=== PATIENT | female | born 1945 | race Caucasian/White ===

== ENCOUNTER → 2016-08-15 | Outpatient (CLI) | payer MEDICARE, BC ==
--- NOTE | 2016-08-15 09:56 | CT ---
EXAMINATION TYPE: CT chest wo con DATE OF EXAM: 08/15/2016 COMPARISON: Previous study dated 02/02/2016. HISTORY: Pulmonary Nodule CT DLP: 443.7 mGycm Automated exposure control for dose reduction was used. FINDINGS: There are emphysematous and bullous changes within the lungs. The patient multiple pulmonary nodules present bilaterally. These are all stable in size. No new nodu larity is seen. There is no significant axillary or internal mammary adenopathy. One pretracheal lymph node previousl y measured 9.9 mm today measures 13 mm. There are calcified left hilar lymph nodes. There is no pleural or pericardial fluid. The heart is mildly enlarged. There is extensive calcification of the mitral annulus. There is mild c oronary artery calcification as well as other vascular calcifications. There is a stable 1.9 x 2.7 cm right adrenal mass lesion. The left adrenal gland is normal. The remai nder the visualized upper abdomen is unremarkable. There is hypertrophic spondylosis within the spine. No bony destructive lesion is seen.. IMPRESSION: 1. STABLE, BILATERAL PULMONARY NODULES. 2. SLIGHT INCREASE IN THE SIZE OF ONE OF THE PATIENT'S PRETRACHEAL LYMPH NODES. 3. STABLE RIGHT ADRENAL MASS. #4 DEGENERATIVE CHANGE WITHIN THE SPINE.
== END | disposition home or self-care (01) ==
LOC: RADCTMAIN 09:21
PROVIDERS: ATTEND Internal Medicine Sleep Medicine
DX: R91.8 Other nonspecific abnormal finding of lung field (principal); R59.0 Localized enlarged lymph nodes
CPT/HCPCS: 71250

== ENCOUNTER → 2016-12-29 | Outpatient (CLI) | payer MEDICARE, BC ==
--- NOTE | 2016-12-29 14:10 | MM ---
Reason for exam: screening (asymptomatic). Last mammogram was performed 1 year ago. History: Patient is postmenopausal and history of other cancer. Family history of premenopausal breast cancer in mother at age 40. Physical Findings: A clinical breast exam by your physician is recommended on an annual basis and results should be correlated with mammographic findings. MG 3D Screening Mammo W/Cad Bilateral CC and MLO view(s) were taken. Prior study comparison: December 28, 2015, bilateral MG 3d screening mammo w/cad. December 25, 2014, bilateral MG screening mammo w CAD. There are scattered fibroglandular densities. Finding: There are typically benign calcifications in the right breast. ASSESSMENT: Incomplete: need additional imaging evaluation, BI-RAD 0 RECOMMENDATION: Ultrasound of the right breast. [facility] will attempt to contact patient to return for ultrasound.
== END | disposition home or self-care (01) ==
LOC: RADMAMWWP 10:57
PROVIDERS: ATTEND Internal Medicine
DX: Z12.31 Encounter for screening mammogram for malignant neoplasm of breast (principal)
CPT/HCPCS: 77063; G0202

== ENCOUNTER → 2017-08-21 | Outpatient (CLI) | payer MEDICARE ==
--- NOTE | 2017-08-21 10:22 | CT ---
EXAMINATION TYPE: CT chest wo con DATE OF EXAM: 08/21/2017 COMPARISON: Prior CT February 16, 2017 and older studies back through April 13, 2015 HISTORY: Solitary pulmonary nodule CT DLP: 385.6 mGycm. Automated Exposure Control for Dose Reduction was Utilized. TECHNIQUE: CT scan of the thorax is performed without IV contrast. FINDINGS: LUNGS: Moderate emphysematous change most prominent in the periphery is redemonstrated of the upper l obes. Semisolid scarlike opacity anterior right upper lobe measures 7 x 6 mm current study axial imag e 18 and is stable from April 13, 2015 study. Inferior to this there is 8 x 4 mm stable oval solid nodule axial image 27 unchanged from April 13, 2015 CT. The 5 x 3 mm scarlike opacity scarlike opac ity central right midlung axial image 27 is unchanged from April 13, 2015 study. Just inferior post erior to the right lower lobe 5 x 5 mm nodule axial image 32 is more prominent from most recent and i nitial study. Smaller nodules for reference axial image 39 near right pulmonary artery branch and axi al image 36 are felt stable. In the left lung there is stable calcified 4 x 2 mm nodule anterior mid lung axial image 26. Inferior to this there is irregular scarring in the lingula redemonstrated. There is 6 x 3 mm left lower lobe groundglass nodule axial image 38 unchanged from April 13, 2015 CT. There is stable smaller nodule axial image 41 and left basilar 6 mm nodule axial image 45. Scarring anteriorly abutting diaphragm a xial image 41 is without significant change from April 13, 2015 CT. No new greater than 5 mm nodule s or masses are present. MEDIASTINUM: Lack of IV contrast is noted to limit evaluation for mediastinal and especially hilar ad enopathy. There are no definitive new greater than 1 cm noncalcified hilar or mediastinal lymph nodes . There are stable prominent paratracheal and pericarinal lymph nodes reference 1.3 x 1.4 cm lymph n ode axial image 19 is noted. There is redemonstration of prominent calcified left hilar lymph nodes N o cardiomegaly or pericardial effusion is seen. Dense calcification at level of mitral valve remains present. Coronary artery calcification is redemonstrated. Suspect coronary stent proximal RCA axial i mage 30. OTHER: There is stable right adrenal mass measuring 2.5 x 1.7 cm on axial image 51 unchanged in size from April 13, 2015 CT, Hounsfield units average [address] Moderate multilevel spurring in the thoracic spine is present. IMPRESSION: For the most part stable bilateral nodularity, one 5 mm right lower lobe nodule is slight ly more prominent. Continued imaging follow-up is advised in 6 months time to document two-year stabi lity to ensure benign or postinflammatory etiology.
== END ==
LOC: RADCTMAIN 08:52
PROVIDERS: ATTEND Internal Medicine Sleep Medicine
DX: R91.1 Solitary pulmonary nodule (principal)
CPT/HCPCS: 71250

== ENCOUNTER 2017-08-30 19:06 | Inpatient (IN) | payer MEDICARE ==
[2017-08-30] MEDS ORDERED: DILTIAZEM DRIP BOLUS FROM BAG 1 MG SOLN IV ONE (19:18)
[2017-08-30] MEDS ORDERED: ASPIRIN 81 MG PO STA (19:18)
[2017-08-30] MEDS ORDERED: IPRATROPIUM-ALBUTEROL 3 ML NEB INHALATION STA (19:26)
--- NOTE | 2017-08-30 19:32 | ED ---
Arrhythmia/Palpitations HPI - General Chief Complaint: Arrhythmia/Palpitations Stated Complaint: A Fib Time Seen by Provider: 08/30/17 19:08 Source: patient Mode of arrival: ambulatory Limitations: no limitations - History of Present Illness Initial Comments: This 72-year-old white female presents with a complaint of some palpitations which started approximately 2 hours prior to arrival. She states that she has a history of atrial fibrillation and this seems quite similar. She was having some midsternal chest pain that seemed to radiate up into her jaw and her bilateral shoulders. She has some shortness of breath but states she has chronic shortness of breath due to her COPD and is due to a breathing treatment currently. She does relate that she just had her Synthroid changed from 75 g to 50 g and started the new dose just today. She followed up with her solid plasterer just last week and everything was good at that time. She's had multiple episodes of the atrial fibrillation. She is on blood thinners currently. No other complaints or modifying factors. She did try a nitroglycerin sublingual prior to arrival. - Related Data Home Medications Medication Instructions Recorded Confirmed Albuterol Sulfate [Ventolin HFA] 2 puff INHALATION RT-Q6H PRN 08/11/13 08/30/17 Multivitamins, Thera [Theragran] 1 tab PO DAILY 05/31/14 08/30/17 Vit C/E/Zn/Coppr/Lutein/Zeaxan 1 cap PO BID 03/02/15 08/30/17 [Preservision Areds 2 Softgel] Budesonide [Pulmicort] 0.5 mg PO RT-BID 08/30/17 08/30/17 Cholecalciferol [Vitamin D3] 1,000 unit PO DAILY 08/30/17 08/30/17 Cyanocobalamin (Vitamin B-12) 1,000 mcg PO DAILY 08/30/17 08/30/17 [Vitamin B-12] Ipratropium Nebulized [Atrovent 0.5 mg INHALATION RT-TID 08/30/17 08/30/17 Nebulized] Levothyroxine Sodium [Levoxyl] 50 mcg PO DAILY 08/30/17 08/30/17 Magnesium Oxide [Mag-Ox] 250 mg PO HS 08/30/17 08/30/17 Vitamin E 100 unit PO DAILY 08/30/17 08/30/17 guaiFENesin [Mucinex] 600 mg PO BID 08/30/17 08/30/17 Previous Rx's Medication Instructions Recorded Aspirin EC [Ecotrin Low Dose] 81 mg PO DAILY #30 tablet. 03/04/15 Atorvastatin [Lipitor] 40 mg PO HS #30 tab 03/04/15 Nadolol [Corgard] 20 mg PO BID #60 tab 03/04/15 Rivaroxaban [Xarelto] 20 mg PO AC-SUPPER #30 tablet 03/04/15 Allergies Allergy/AdvReac Type Severity Reaction Status Date / Time codeine Allergy Itching Verified 08/30/17 20:12 Sulfa (Sulfonamide Allergy Hallucinati Verified 08/30/17 20:12 Antibiotics) ons Review of Systems ROS Statement: Those systems with pertinent positive or pertinent negative responses have been documented in the HPI. ROS Other: All systems not noted in ROS Statement are negative. Past Medical History Past Medical History: Atrial Fibrillation, Asthma, Coronary Artery Disease (CAD) , Heart Failure, COPD, Myocardial Infarction (ID), Pneumonia, Thyroid Disorder Additional Past Medical History / Comment(s): Gout in left foot, patients physician states that she did not have congestive heart failure, hiatal hernia Last Myocardial Infarction Date:: 2011 History of Any Multi-Drug Resistant Organisms: None Reported Past Surgical History: Cholecystectomy, Heart Catheterization With Stent, Hysterectomy, Tonsillectomy Additional Past Surgical History / Comment(s): right shoulder, left wrist. Thyroid Nodule removed Past Anesthesia/Blood Transfusion Reactions: No Reported Reaction Date of Last Stent Placement:: 2011 Past Psychological History: No Psychological Hx Reported Smoking Status: Former smoker Past Alcohol Use History: None Reported Past Drug Use History: None Reported - Past Family History Mother Family Medical History: Cancer, Congestive Heart Failure (CHF), Myocardial Infarction (ID), Pneumonia, Pulmonary Embolus Additional Family Medical History / Comment(s): breast CA Father Family Medical History: CVA/TIA, Myocardial Infarction (ID) General Exam - General Exam Comments Initial Comments: GENERAL: The patient is well nourished and well hydrated. VITAL SIGNS: Heart rate, blood pressure, respiratory rate reviewed as recorded in nurse's notes. EYES: Pupils are round and reactive. Extraocular movements are intact. No conjunctival / lid redness or swelling. ENT: No external evidence of injury, swelling, or ecchymosis. Airway is patent. Throat is clear. NECK: Nontender. No swelling or evidence of injury. No subcutaneous emphysema. Trachea is midline. No thyroid mass. HEART: There is a tachycardic irregular rhythm. Good peripheral pulses. LUNGS/CHEST: Breath sounds clear and equal bilaterally. No rales, rhonchi, or wheezes. No ecchymosis, subcutaneous emphysema, or tenderness. ABDOMEN: Abdomen soft without tenderness. No palpable masses or organomegaly. No peritoneal signs. No abdominal wall swelling or ecchymosis. EXTREMITIES: No extremity tenderness. Normal muscle tone and function. No thoracolumbar tenderness. NEUROLOGIC: Sensation is grossly intact. Cranial nerve exam reveals face is symmetrical, tongue is midline, speech is clear. SKIN: No abrasions or ecchymosis is noted. No induration or masses noted. PSYCHIATRIC: Alert and oriented. Appropriate behavior and judgment. Limitations: no limitations Course Vital Signs 08/30/17 08/30/17 08/30/17 19:09 19:13 19:45 Temperature 97.6 F Pulse Rate 135 H 133 H Pulse Rate [ 140 H Hand Buffing Wheel Former ] Respiratory 18 Rate Blood Pressure 154/66 O2 Sat by Pulse 95 Oximetry 08/30/17 08/30/17 19:55 20:08 Temperature Pulse Rate 128 H 126 H Pulse Rate [ Hand Buffing Wheel Former ] Respiratory 18 Rate Blood Pressure 140/106 O2 Sat by Pulse 97 Oximetry Medical Decision Making - Medical Decision Making The patient was seen and examined. All diagnostics were reviewed. The patient was placed on residential monitor and this does show a tachycardic irregular rate at approximately 140. The EKG shows atrial fibrillation with rapid ventricular response with a heart rate of 143. There is some ST-T wave changes noted that in the inferior and lateral leads. The QRS duration is 98 and the QTc interval is elevated at 515. She does receive an aspirin as well as some Cardizem as a bolus and a Cardizem drip. The laboratory is reviewed and overall is fairly unremarkable. The chest x-ray does not show any acute processes. The possibility of some pulmonary hypertension as questioned per radiology. There are COPD like changes as well. The Cardizem is titrated and her heart rate has improved slightly. It is felt as though she would benefit from admission to the hospital for further treatment. She already is on blood thinners so no additional blood thinners will be added. The case is discussed with HETAL Lazo from internal medicine and she is agreeable to admission with cardiology to consult. A total of 30 minutes of critical care time is utilized and the treatment of the patient. - Lab Data Result diagrams: 08/30/17 19:23 08/30/17 19:23 Lab Results 08/30/17 08/30/17 08/30/17 Range/Units 19:23 19:23 19:23 WBC 10.1 (3.8-10.6) k/uL RBC 4.62 (3.80-5.40) m/uL Hgb 12.0 (11.4-16.0) gm/dL Hct 37.3 (34.0-46.0) % MCV 80.8 (80.0-100.0) fL MCH 25.9 (25.0-35.0) pg MCHC 32.1 (31.0-37.0) g/dL RDW 14.8 (11.5-15.5) % Plt Count 229 (150-450) k/uL Neutrophils % 60 % Lymphocytes % 25 % Monocytes % 7 % Eosinophils % 4 % Basophils % 1 % Neutrophils # 6.1 (1.3-7.7) k/uL Lymphocytes # 2.6 (1.0-4.8) k/uL Monocytes # 0.7 (0-1.0) k/uL Eosinophils # 0.4 (0-0.7) k/uL Basophils # 0.1 (0-0.2) k/uL PT (9.0-12.0) sec INR (<1.2) APTT (22.0-30.0) sec Sodium 137 (137-145) mmol/L Potassium 4.7 (3.5-5.1) mmol/L Chloride 106 (98-107) mmol/L Carbon Dioxide 21 L (22-30) mmol/L Anion Gap 10 mmol/L BUN 23 H (7-17) mg/dL Creatinine 0.80 (0.52-1.04) mg/dL Est GFR (CKD-EPI)AfAm 85 (>60 ml/min/1.73 sqM) Est GFR (CKD-EPI)NonAf 74 (>60 ml/min/1.73 sqM) Glucose 102 H (74-99) mg/dL Calcium 9.4 (8.4-10.2) mg/dL Magnesium 1.8 (1.6-2.3) mg/dL Total Bilirubin 0.4 (0.2-1.3) mg/dL AST 36 (14-36) U/L ALT 29 (9-52) U/L Alkaline Phosphatase 109 (38-126) U/L Total Creatine Kinase 30 (30-135) U/L CK-MB (CK-2) 0.7 (0.0-2.4) ng/mL CK-MB (CK-2) Rel Index 2.3 Troponin I <0.012 (0.000-0.034) ng/mL Total Protein 6.6 (6.3-8.2) g/dL Albumin 3.9 (3.5-5.0) g/dL TSH <0.015 L (0.465-4.680) mIU/L 08/30/17 Range/Units 19:23 WBC (3.8-10.6) k/uL RBC (3.80-5.40) m/uL Hgb (11.4-16.0) gm/dL Hct (34.0-46.0) % MCV (80.0-100.0) fL MCH (25.0-35.0) pg MCHC (31.0-37.0) g/dL RDW (11.5-15.5) % Plt Count (150-450) k/uL Neutrophils % % Lymphocytes % % Monocytes % % Eosinophils % % Basophils % % Neutrophils # (1.3-7.7) k/uL Lymphocytes # (1.0-4.8) k/uL Monocytes # (0-1.0) k/uL Eosinophils # (0-0.7) k/uL Basophils # (0-0.2) k/uL PT 10.9 (9.0-12.0) sec INR 1.1 (<1.2) APTT 25.1 (22.0-30.0) sec Sodium (137-145) mmol/L Potassium (3.5-5.1) mmol/L Chloride (98-107) mmol/L Carbon Dioxide (22-30) mmol/L Anion Gap mmol/L BUN (7-17) mg/dL Creatinine (0.52-1.04) mg/dL Est GFR (CKD-EPI)AfAm (>60 ml/min/1.73 sqM) Est GFR (CKD-EPI)NonAf (>60 ml/min/1.73 sqM) Glucose (74-99) mg/dL Calcium (8.4-10.2) mg/dL Magnesium (1.6-2.3) mg/dL Total Bilirubin (0.2-1.3) mg/dL AST (14-36) U/L ALT (9-52) U/L Alkaline Phosphatase (38-126) U/L Total Creatine Kinase (30-135) U/L CK-MB (CK-2) (0.0-2.4) ng/mL CK-MB (CK-2) Rel Index Troponin I (0.000-0.034) ng/mL Total Protein (6.3-8.2) g/dL Albumin (3.5-5.0) g/dL TSH (0.465-4.680) mIU/L Disposition Clinical Impression: Atrial fibrillation with rapid ventricular response, Chest pain, Hypertension, Dyspnea, Unstable angina, Chronic obstructive pulmonary disease (COPD) Disposition: ADMITTED IP TO THIS HOSP Condition: Fair Is patient prescribed a controlled substance at d/c from ED?: No Time of Disposition: 20:47 Decision Date: 08/30/17 Decision Time: 20:47
[2017-08-30 19:33] LABS: Basophils # (A) 0.1 k/uL (0-0.2); Basophils % (A) 1 %; Eosinophils # (A) 0.4 k/uL (0-0.7); Eosinophils % (A) 4 %; HCT 37.3 % (34.0-46.0); Lymphocytes # (A) 2.6 k/uL (1.0-4.8); Lymphocytes % (A) 25 %; MCH 25.9 pg (25.0-35.0); MCHC 32.1 g/dL (31.0-37.0); MCV 80.8 fL (80.0-100.0); Mean Platelet Volume 7.4; Monocytes # (A) 0.7 k/uL (0-1.0); Monocytes % (A) 7 %; Neutrophils # (A) 6.1 k/uL (1.3-7.7); Neutrophils % (A) 60 %; Platelet Count 229 k/uL (150-450); RBC 4.62 m/uL (3.80-5.40); RDW 14.8 % (11.5-15.5); WBC 10.1 k/uL (3.8-10.6)
[2017-08-30 19:42] LABS: INR 1.1 (<1.2); Partial Thromboplastin Time 25.1 sec (22.0-30.0); Prothrombin Time 10.9 sec (9.0-12.0)
[2017-08-30] MEDS: DILTIAZEM 50 MG in SODIUM CHLORIDE 0.9% 40 ML IV SCH (19:46)
--- NOTE | 2017-08-30 19:51 | XR ---
EXAMINATION TYPE: XR chest 2V DATE OF EXAM: 08/30/2017 COMPARISON: 01/01/2016 HISTORY: Chest pain TECHNIQUE: Frontal and lateral views of the chest are obtained. FINDINGS: There is coarsening of interstitial pulmonary markings. There is large pulmonary heron. The re is some coarse infiltrate at the left lung base. There is small linear infiltrate right midlung fi eld. There is no heart failure. IMPRESSION: Pulmonary fibrotic changes. No heart failure. There is clearing of some mild infiltrate at the lateral right lung base compared to last exam. Large pulmonary heron consistent with pulmonary hypertension.
[2017-08-30 19:55] LABS: Creatine Kinase 30 U/L (30-135)
[2017-08-30 20:07] LABS: ALT 29 U/L (9-52); AST 36 U/L (14-36); Albumin 3.9 g/dL (3.5-5.0); Alkaline Phosphatase 109 U/L (38-126); Anion Gap 10 mmol/L; Blood Urea Nitrogen 23 mg/dL (7-17); Calcium 9.4 mg/dL (8.4-10.2); Carbon Dioxide 21 mmol/L (22-30); Chloride 106 mmol/L (98-107); Creatine Kinase MB 0.7 ng/mL (0.0-2.4); Glucose 102 mg/dL (74-99); Magnesium 1.8 mg/dL (1.6-2.3); Potassium 4.7 mmol/L (3.5-5.1); Sodium 137 mmol/L (137-145); Total Bilirubin 0.4 mg/dL (0.2-1.3); Total Protein 6.6 g/dL (6.3-8.2); Troponin I <0.012 ng/mL (0.000-0.034)
[2017-08-30] MEDS ORDERED: NITROGLYCERIN SL TABS 0.4 MG TAB SUBLINGUAL PRN (20:47)
[2017-08-30] MEDS ORDERED: NADOLOL 20 MG TAB PO SCH (21:00)
[2017-08-30] MEDS: MAGNESIUM OXIDE 400 MG TAB PO SCH (22:28)
[2017-08-30] MEDS: guaiFENesin 600 MG TABLET.ER PO SCH (22:28)
[2017-08-30] MEDS: ATORVASTATIN 40 MG TAB PO SCH (22:28)
[2017-08-30] MEDS: VIT A,C & E-LUTEIN-MINERALS 1 EACH TAB PO SCH (22:29)
[2017-08-30] MEDS: ACETAMINOPHEN TAB 325 MG TAB PO PRN (23:26)
[2017-08-31] MEDS ORDERED: IPRATROPIUM-ALBUTEROL 3 ML NEB INHALATION SCH
[2017-08-31] MEDS: methylPREDNISolone SOD SUCCI 125 MG/2 ML VIAL IV SCH ×4 (00:38→12:16)
[2017-08-31 00:48] LABS: T4, Free (Free Thyroxine) 1.87 ng/dL (0.78-2.19)
[2017-08-31] MEDS ORDERED: MELATONIN 3 MG TABLET PO PRN (01:40)
[2017-08-31 02:54] LABS: Basophils % (A) 0 %; Eosinophils # (A) 0.1 k/uL (0-0.7); Eosinophils % (A) 2 %; HCT 36.6 % (34.0-46.0); HGB 11.5 gm/dL (11.4-16.0); Hypochromasia Slight; Lymphocytes # (A) 1.6 k/uL (1.0-4.8); Lymphocytes % (A) 18 %; MCH 25.8 pg (25.0-35.0); MCHC 31.4 g/dL (31.0-37.0); MCV 82.4 fL (80.0-100.0); Mean Platelet Volume 7.2; Monocytes # (A) 0.4 k/uL (0-1.0); Monocytes % (A) 5 %; Neutrophils # (A) 6.2 k/uL (1.3-7.7); Neutrophils % (A) 74 %; Platelet Count 190 k/uL (150-450); RBC 4.44 m/uL (3.80-5.40); RDW 14.8 % (11.5-15.5); WBC 8.5 k/uL (3.8-10.6)
[2017-08-31 03:37] LABS: Creatine Kinase MB 1.6 ng/mL (0.0-2.4); Troponin I 0.027 ng/mL (0.000-0.034)
--- NOTE | 2017-08-31 04:27 | HP ---
HISTORY AND PHYSICAL DATE OF SERVICE: 08/30/17 CHIEF COMPLAINTS: Palpitations. HISTORY OF PRESENT ILLNESS: This 72-year-old woman with a past medical history of multiple medical problems including atrial fibrillation, history of asthma, CAD, myocardial infarction, pneumonia, history of gout, history of cholecystectomy, CAD, being followed by Dr. Elizabeth in the outpatient setting was complaining of palpitations. The patient had previous episode of palpation. Patient was found to have atrial fibrillation with fast ventricular rate and admitted to the hospital for further evaluation and treatment. Patient also has some shortness of breath. The patient is on breathing treatments using 2 L of oxygen at night. The Synthroid has been changed from 75-50 mcg recently and the labs showed TSH less than 0.015 indicating possibly iatrogenic hyperthyroidism. There is no history of fever, rigors. No history of headache, loss consciousness or seizures at this time. PAST MEDICAL HISTORY: History of atrial ablation, asthma, CAD, COPD, myocardial infarction, pneumonia , gout, hypothyroidism, history of CAD/stent. MEDICATIONS: Prior to admission include home medications are: 2. Vitamin E 100 mg p.o. daily. 3. Magnesium oxide 250 mg q.h.s. 4. Vitamin B12 1000 mg p.o. daily. 5. Vitamin D3 1000 daily. 6. Atrovent 0.5 t.i.d. 7. Pulmicort 0.5 b.i.d. 8. Ventolin 2 puffs q.6h p.r.n. 9. PreserVision 1 capsule p.o. b.i.d. 10.Xarelto 20 mg at supper. 11.Corgard 20 mg b.i.d. 12.Multivitamins 1 p.o. daily. 13.Levaquin 50 mcg p.o. daily. 14.Lipitor 40 mg q.h.s. 15.Ecotrin 81 mg p.o. daily. ALLERGIES: CODEINE AND SULFA. FAMILY HISTORY: History of cancer, CHF, myocardial infarction, pneumonia, pulmonary embolism, breast cancer in the family. SOCIAL HISTORY: Previous history of smoking. No history of alcohol intake. REVIEW OF SYSTEMS: ENT: No diminished vision. No diminished hearing. Cardiovascular: As mentioned earlier. Respiratory: As mentioned earlier. GI no nausea or vomiting or diarrhea. : No dysuria or hematuria. Nervous system: No numbness or weakness. Allergy/Immunology: No asthma or hayfever. Musculoskeletal: As mentioned earlier mentioned earlier. HEMATOLOGY/ONCOLOGY: No history of anemia. Endocrine: Hypothyroidism. Constitutional: As mentioned earlier. Rheumatology: Negative. Dermatology: Negative. Psychiatric: As mentioned earlier. PHYSICAL EXAM: Patient is alert, oriented x3. Pulse 110, blood pressure 125/70, respiration 18 , temperature 97.3, pulse ox 99% on room air. HEENT: Conjunctivae normal. Oral mucosa moist. Neck is no jugular venous distention. No carotid bruit. No lymph node enlargement. Cardiovascular: S1, S2 muffled. Irregular, tachycardic. No murmur noted. Respiration: Breathing efforts increased. bilateral scattered rhonchi and a few crackles. ABDOMEN: Soft, nontender. No mass palpable. Legs no edema. LEGS: No edema. No swelling. NERVOUS SYSTEM: Higher functions as mentioned earlier, moves all 4 limbs, no focal motor or sensory deficits. Lymphatics: No lymph nodes palpable in the neck or axilla. Skin: No ulcer, rash or bleeding. LAB STUDIES: WBC 10.9, hemoglobin is 12, the sodium 137, potassium 4.7. ASSESSMENT: 1. Atrial fibrillation with fast ventricular rate. 2. Possibly iatrogenic hyperthyroidism. 3. Chronic obstructive pulmonary disease, acute exacerbation. 4. History of asthma. 5. History of coronary artery disease. 6. History of myocardial infarction. 7. History of pneumonia. 8. History of gout. 9. History of coronary artery disease stent. 10.History of cholecystectomy. RECOMMENDATIONS AND DISCUSSION: This 72-year-old woman who presented with multiple complex medical issues, we will monitor the patient closely. Continue the current medications, continue symptomatic treatment. Otherwise, at this time, I recommend optimize bronchodilator treatment. I would also recommend small dose of IV steroids. Hold Synthroid. Cardiology consultation. Patient is on Cardizem drip at 5 mg/hour. Heart rate is fluctuating around 90s and around 100s. The patient is already on Xarelto. Resume the home medications. Medication reconciliation was done. The prognosis guarded because of multiple complex medical issues. Discussed with the patient, understands and agrees. Further recommendations to follow. A copy of dictation forwarded to Dr. Elizabeth who is the primary physician. MMODL / IJN: [id number] / MTDD
[2017-08-31] MEDS: DILTIAZEM 50 MG in SODIUM CHLORIDE 0.9% 40 ML IV SCH ×3 (05:22→18:13)
[2017-08-31] MEDS ORDERED: LEVOTHYROXINE 50 MCG TAB PO SCH (06:30)
[2017-08-31 06:33] LABS: Glucose,Whole Blood 149 mg/dL (75-99)
[2017-08-31] MEDS: INSULIN ASPART 100 UNIT/ML 1 ML 10 ML VIAL SQ SCH ×3 (06:39→17:43)
[2017-08-31] MEDS: BUDESONIDE 0.5 MG/2 ML NEBU INHALATION SCH ×2 (08:00→20:04)
[2017-08-31] MEDS: IPRATROPIUM-ALBUTEROL 3 ML NEB INHALATION SCH ×4 (08:00→20:06)
[2017-08-31 08:22] LABS: Calcium 9.5 mg/dL (8.4-10.2)
[2017-08-31 08:34] LABS: Troponin I 0.026 ng/mL (0.000-0.034)
[2017-08-31] MEDS ORDERED: NON-FORMULARY DRUG (Vitamin E [Vitamin E] 100 UNIT) PO SCH (09:00)
[2017-08-31] MEDS ORDERED: ASPIRIN 325 MG TAB PO SCH (09:00)
--- NOTE | 2017-08-31 09:08 | P.CRDCN ---
History of Present Illness Consult date: 08/31/17 Requesting physician: May Tanner Consult reason: atrial fibrillation Chief complaint: Palpitations History of present illness: This is a pleasant 72-year-old female who follows with Dr. Flynn in the office, she has known history of coronary artery disease and prior stent placement of the right coronary artery, hypertension, hyperlipidemia, asthma, COPD, hypothyroidism, paroxysmal atrial fibrillation. She presented to the hospital on this occasion with symptoms of palpitations. According to the patient she has recently seen Dr. Elizabeth in the office, she decreased her dose of Synthroid because her TSH level was significantly low. She had been taking 75 g this was decreased to 50. Results to the hospital on this occasion with symptoms of palpitations and feeling her heart racing fast. Patient also states she had some chest discomfort with radiation to her shoulders and was mildly short of breath. States she was wheezing quite a bit on presentation here. Her EKG on presentation here showed atrial fibrillation with a rapid ventricular response. Chest x-ray shows pulmonary fibrosis, no heart failure, clearing of a mild infiltrate. Blood pressure 110/60, heart rate in the 120s, 95% on 2 L. CBC is normal, sodium 139, potassium 5.0, BUN 23, creatinine 0.8. Troponin 0.012, 0.027. TSH level 0.015 free T4 1 0.8 and free T3 4 0.5. Synthroid has currently been placed on hold. Time of my examination this morning, patient is feeling significantly better than her presentation here. She still states that she can feel palpitations, breathing is improved. Past Medical History Past Medical History: Atrial Fibrillation, Asthma, Coronary Artery Disease (CAD) , COPD, Myocardial Infarction ([place]), Pneumonia, Thyroid Disorder Additional Past Medical History / Comment(s): Gout in left foot, patients physician states that she did not have congestive heart failure, hiatal hernia, osteoporosis Last Myocardial Infarction Date:: 2011 History of Any Multi-Drug Resistant Organisms: None Reported Past Surgical History: Cholecystectomy, Heart Catheterization With Stent, Hysterectomy, Tonsillectomy Additional Past Surgical History / Comment(s): right shoulder, left wrist. Thyroid Nodule removed Past Anesthesia/Blood Transfusion Reactions: No Reported Reaction Date of Last Stent Placement:: 2011 Past Psychological History: No Psychological Hx Reported Smoking Status: Former smoker Past Alcohol Use History: None Reported Past Drug Use History: None Reported - Past Family History Mother Family Medical History: Cancer, Congestive Heart Failure (CHF), Myocardial Infarction ([place]), Pneumonia, Pulmonary Embolus Additional Family Medical History / Comment(s): breast CA Father Family Medical History: CVA/TIA, Myocardial Infarction ([place]) Medications and Allergies Home Medications Medication Instructions Recorded Confirmed Type Albuterol Sulfate [Ventolin HFA] 2 puff INHALATION RT-Q6H PRN 08/11/13 08/30/17 History Multivitamins, Thera [Theragran] 1 tab PO DAILY 05/31/14 08/30/17 History Vit C/E/Zn/Coppr/Lutein/Zeaxan 1 cap PO BID 03/02/15 08/30/17 History [Preservision Areds 2 Softgel] Aspirin EC [Ecotrin Low Dose] 81 mg PO DAILY #30 tablet. 03/04/15 08/30/17 Rx Atorvastatin [Lipitor] 40 mg PO HS #30 tab 03/04/15 08/30/17 Rx Nadolol [Corgard] 20 mg PO BID #60 tab 03/04/15 08/30/17 Rx Rivaroxaban [Xarelto] 20 mg PO AC-SUPPER #30 tablet 03/04/15 08/30/17 Rx Budesonide [Pulmicort] 0.5 mg PO RT-BID 08/30/17 08/30/17 History Cholecalciferol [Vitamin D3] 1,000 unit PO DAILY 08/30/17 08/30/17 History Cyanocobalamin (Vitamin B-12) 1,000 mcg PO DAILY 08/30/17 08/30/17 History [Vitamin B-12] Ipratropium Nebulized [Atrovent 0.5 mg INHALATION RT-TID 08/30/17 08/30/17 History Nebulized] Levothyroxine Sodium [Levoxyl] 50 mcg PO DAILY 08/30/17 08/30/17 History Magnesium Oxide [Mag-Ox] 250 mg PO HS 08/30/17 08/30/17 History Vitamin E 100 unit PO DAILY 08/30/17 08/30/17 History guaiFENesin [Mucinex] 600 mg PO BID 08/30/17 08/30/17 History Allergies Allergy/AdvReac Type Severity Reaction Status Date / Time codeine Allergy Itching Verified 06/20/18 20:12 Sulfa (Sulfonamide Allergy Hallucinati Verified 08/30/17 20:12 Antibiotics) ons Physical Exam Vitals: Vital Signs Temp Pulse Pulse Resp BP BP Pulse Ox 08/31/17 08:19 124 H 08/31/17 08:01 120 H 95 08/31/17 04:00 97.4 F L 94 18 110/65 98 08/31/17 00:00 97.5 F L 99 18 125/65 97 08/30/17 22:27 18 92 L 08/30/17 21:45 97.3 F L 110 H 18 125/73 91 L 08/30/17 20:45 128 H 18 150/70 96 08/30/17 20:08 126 H 18 140/106 97 08/30/17 19:55 128 H 08/30/17 19:45 133 H 08/30/17 19:13 140 H 08/30/17 19:09 97.6 F 135 H 18 154/66 95 Intake and Output 08/30/17 08/31/17 08/31/17 22:59 06:59 14:59 Intake Total 7.917 42.083 360 Output Total 0 Balance 7.917 42.083 360 Intake: Intake, IV Titration 7.917 42.083 Amount Diltiazem 50 mg In Sodium 7.917 42.083 Chloride 0.9% 40 ml @ 5 MG/HR 5 mls/hr IV .Q10H [facility] Rx#:[id number] Oral 360 Output: Urine 0 Stool 0 Other: Voiding Method Toilet # Voids 2 Weight 89.7 kg 89.7 kg PHYSICAL EXAMINATION: GENERAL: 72-year-old female in no apparent distress at the time of my examination. HEENT: Head is atraumatic, normocephalic. Pupils equal, round. Sclera anicteric. Conjunctiva are clear. Mucous membranes of the mouth are moist. Neck is supple. There is no elevated jugular venous pressure.] bruit is heard. HEART EXAMINATION: Heart S1 and S2 irregularly irregular CHEST EXAMINATION: Lungs are clear with fine wheezing heard. ABDOMEN: Soft, nontender. Bowel sounds are heard. No organomegaly noted. EXTREMITIES: 2+ peripheral pulses with no evidence of peripheral edema and no calf tenderness noted. NEUROLOGIC patient is awake, alert and oriented -3. . Results 08/31/17 02:38 08/31/17 07:21 Cardiac Enzymes 08/30/17 08/30/17 08/31/17 Range/Units 19:23 19:23 02:38 AST 36 (14-36) U/L CK-MB (CK-2) 0.7 1.6 (0.0-2.4) ng/mL Troponin I <0.012 0.027 (0.000-0.034) ng/mL 08/31/17 Range/Units 07:21 AST (14-36) U/L CK-MB (CK-2) 2.0 (0.0-2.4) ng/mL Troponin I 0.026 (0.000-0.034) ng/mL Coagulation 08/30/17 Range/Units 19:23 PT 10.9 (9.0-12.0) sec APTT 25.1 (22.0-30.0) sec Lipids 08/31/17 Range/Units 07:21 Triglycerides 73 (<150) mg/dL Cholesterol 132 (<200) mg/dL HDL Cholesterol 59 (40-60) mg/dL CBC 08/30/17 08/31/17 Range/Units 19:23 02:38 WBC 10.1 8.5 (3.8-10.6) k/uL RBC 4.62 4.44 (3.80-5.40) m/uL Hgb 12.0 11.5 (11.4-16.0) gm/dL Hct 37.3 36.6 (34.0-46.0) % Plt Count 229 190 (150-450) k/uL Comprehensive Metabolic Panel 08/30/17 08/31/17 Range/Units 19:23 07:21 Sodium 137 139 (137-145) mmol/L Potassium 4.7 5.0 (3.5-5.1) mmol/L Chloride 106 107 (98-107) mmol/L Carbon Dioxide 21 L 19 L (22-30) mmol/L BUN 23 H 23 H (7-17) mg/dL Creatinine 0.80 0.85 (0.52-1.04) mg/dL Glucose 102 H 164 H (74-99) mg/dL Calcium 9.4 9.5 (8.4-10.2) mg/dL AST 36 (14-36) U/L ALT 29 (9-52) U/L Alkaline Phosphatase 109 (38-126) U/L Total Protein 6.6 (6.3-8.2) g/dL Albumin 3.9 (3.5-5.0) g/dL Current Medications Generic Name Dose Route Start Last Admin Trade Name Freq PRN Reason Stop Dose Admin Acetaminophen 650 mg 08/30/17 23:11 08/30/17 23:26 Tylenol Tab PO 650 mg Q6HR PRN Administration Fever and/ or Pain Albuterol/Ipratropium 3 ml 08/31/17 08:00 08/31/17 08:00 Duoneb 0.5 Mg-3 Mg/3 Ml Soln INHALATION 3 ml RT-QID MILAN Administration Aspirin 81 mg 08/31/17 09:00 Aspirin PO DAILY MILAN Atorvastatin Calcium 40 mg 08/30/17 21:00 08/30/17 22:28 Lipitor PO 40 mg HS MILAN Administration Budesonide 0.5 mg 08/31/17 08:00 08/31/17 08:00 Pulmicort INHALATION 0.5 mg RT-BID MILAN Administration Cholecalciferol 1,000 unit 08/31/17 09:00 Vitamin D3 PO DAILY MILAN Cyanocobalamin 1,000 mcg 08/31/17 09:00 Vitamin B-12 PO DAILY MILAN Guaifenesin 600 mg 08/30/17 21:00 08/30/17 22:28 Mucinex PO 600 mg BID MILAN Administration Diltiazem HCl 50 mg/ Sodium 50 mls @ 5 mls/hr 08/30/17 19:30 08/31/17 05:22 Chloride IV 7.5 mg/hr .Q10H MILAN 7.5 mls/hr Protocol Administration 5 MG/HR Insulin Aspart 0 unit 08/31/17 07:30 08/31/17 06:39 Novolog SQ 2 unit ACHS MILAN Administration Protocol Magnesium Oxide 200 mg 08/30/17 21:00 08/30/17 22:28 Mag-Ox PO 200 mg HS MILAN Administration Melatonin 3 mg 08/31/17 01:40 08/31/17 02:11 Melatonin PO 3 mg HS PRN Administration Insomnia Methylprednisolone Sodium Succinate 60 mg 08/31/17 00:00 08/31/17 06:24 Solu-Medrol IV Not Given Q6HR [facility] Multivitamins 1 each 08/31/17 12:00 Theragran PO DAILY@1200 [facility] Multivitamins/Minerals 1 each 08/30/17 21:00 08/30/17 22:29 Ivite PO 1 each BID [facility] Administration Nadolol 20 mg 08/30/17 21:00 08/30/17 22:29 Corgard PO 20 mg BID MILAN Administration Nitroglycerin 0.4 mg 08/30/17 20:47 Nitrostat SUBLINGUAL Q5M PRN Chest Pain Rivaroxaban 20 mg 08/31/17 17:30 Xarelto PO AC-SUPPER [facility] Intake and Output 08/30/17 08/31/17 08/31/17 22:59 06:59 14:59 Intake Total 7.917 42.083 360 Output Total 0 Balance 7.917 42.083 360 Intake: Intake, IV Titration 7.917 42.083 Amount Diltiazem 50 mg In Sodium 7.917 42.083 Chloride 0.9% 40 ml @ 5 MG/HR 5 mls/hr IV .Q10H [facility] Rx#:[id number] Oral 360 Output: Urine 0 Stool 0 Other: Voiding Method Toilet # Voids 2 Weight 89.7 kg 89.7 kg 08/31/17 02:38 08/31/17 07:21 EKG Interpretations (text) EKG shows atrial fibrillation with rapid ventricular response occasional PVC. Assessment and Plan Plan: Assessment and plan #1 atrial fibrillation with rapid ventricular response, persistent , patient is on Xarelto for anticoagulation. Currently on IV Cardizem drip. #2 known history of coronary disease with prior RCA stenting #3 hypertension #4 History of hypothyroidism, TSH level 0.015 this admission, Synthroid placed on hold. #5 hyperlipidemia Plan We'll obtain a repeat echocardiogram with Doppler study. Patient's Synthroid has also been placed on hold because of the low TSH level. Medication adjustments were made to optimize rate control. Further recommendations to follow. DNP note has been reviewed, I agree with a documented findings and plan of care. Patient was seen and examined.
[2017-08-31] MEDS: CYANOCOBALAMIN 500 MCG TAB PO SCH (09:43)
[2017-08-31] MEDS: guaiFENesin 600 MG TABLET.ER PO SCH ×2 (09:44→20:29)
[2017-08-31] MEDS: ASPIRIN 81 MG PO SCH (09:44)
[2017-08-31] MEDS: CHOLECALCIFEROL 1,000 UNIT TAB PO SCH (09:44)
[2017-08-31] MEDS: VIT A,C & E-LUTEIN-MINERALS 1 EACH TAB PO SCH ×2 (09:44→20:29)
[2017-08-31] MEDS: NADOLOL 20 MG TAB PO SCH ×2 (09:45→20:30)
[2017-08-31 12:10] LABS: Glucose,Whole Blood 139 mg/dL (75-99)
[2017-08-31] MEDS: MULTIVITAMINS, THERA 1 EACH TAB PO SCH (12:17)
[2017-08-31 14:34] LABS: Hemoglobin A1C 5.4 % (4.0-6.0)
--- NOTE | 2017-08-31 15:25 | P.CNPUL ---
History of Present Illness Consult date: 08/31/17 Reason for consult: dyspnea, asthma, COPD, hypoxemia Chief complaint: Shortness of breath palpitation on the day of admission History of present illness: Miss Harmony Arias a 72-year-old female with history of chronic atrial fibrillation, patient has severe COPD emphysema as well as well as history of chronic persistent asthma 2 days prior to presenting into the hospital yesterday started having palpitations increasing shortness of breath with those problem patient is mental the emergency department where she was seen evaluated examined she was found to be in atrial fibrillation she has been on anticoagulation all along to rapid A. fib And has been admitted into the hospital she on specific questioning he denies any cough or sputum production denies any night sweats or fever or chills denies any seizure-like to a loss of consciousness or hemiparesis denies any bowel or bladder related dysfunction Review of Systems All systems: negative Past Medical History Past Medical History: Atrial Fibrillation, Asthma, Coronary Artery Disease (CAD) , COPD, Myocardial Infarction ([place]), Pneumonia, Thyroid Disorder Additional Past Medical History / Comment(s): Gout in left foot, patients physician states that she did not have congestive heart failure, hiatal hernia, osteoporosis Last Myocardial Infarction Date:: 2011 History of Any Multi-Drug Resistant Organisms: None Reported Past Surgical History: Cholecystectomy, Heart Catheterization With Stent, Hysterectomy, Tonsillectomy Additional Past Surgical History / Comment(s): right shoulder, left wrist. Thyroid Nodule removed Past Anesthesia/Blood Transfusion Reactions: No Reported Reaction Date of Last Stent Placement:: 2011 Past Psychological History: No Psychological Hx Reported Smoking Status: Former smoker Past Alcohol Use History: None Reported Past Drug Use History: None Reported - Past Family History Mother Family Medical History: Cancer, Congestive Heart Failure (CHF), Myocardial Infarction ([place]), Pneumonia, Pulmonary Embolus Additional Family Medical History / Comment(s): breast CA Father Family Medical History: CVA/TIA, Myocardial Infarction ([place]) Medications and Allergies Home Medications Medication Instructions Recorded Confirmed Type Albuterol Sulfate [Ventolin HFA] 2 puff INHALATION RT-Q6H PRN 08/11/08/30/17 History Multivitamins, Thera [Theragran] 1 tab PO DAILY 05/31/14 08/30/17 History Vit C/E/Zn/Coppr/Lutein/Zeaxan 1 cap PO BID 03/02/15 08/30/17 History [Preservision Areds 2 Softgel] Aspirin EC [Ecotrin Low Dose] 81 mg PO DAILY #30 tablet.dr 03/04/15 08/30/17 Rx Atorvastatin [Lipitor] 40 mg PO HS #30 tab 03/04/15 08/30/17 Rx Nadolol [Corgard] 20 mg PO BID #60 tab 03/04/15 08/30/17 Rx Rivaroxaban [Xarelto] 20 mg PO AC-SUPPER #30 tablet 03/04/15 08/30/17 Rx Budesonide [Pulmicort] 0.5 mg PO RT-BID 08/30/17 08/30/17 History Cholecalciferol [Vitamin D3] 1,000 unit PO DAILY 08/30/17 08/30/17 History Cyanocobalamin (Vitamin B-12) 1,000 mcg PO DAILY 08/30/17 08/30/17 History [Vitamin B-12] Ipratropium Nebulized [Atrovent 0.5 mg INHALATION RT-TID 08/30/17 08/30/17 History Nebulized] Levothyroxine Sodium [Levoxyl] 50 mcg PO DAILY 08/30/17 08/30/17 History Magnesium Oxide [Mag-Ox] 250 mg PO HS 08/30/17 08/30/17 History Vitamin E 100 unit PO DAILY 08/30/17 08/30/17 History guaiFENesin [Mucinex] 600 mg PO BID 08/30/17 08/30/17 History Allergies Allergy/AdvReac Type Severity Reaction Status Date / Time codeine Allergy Itching Verified 08/30/17 20:12 Sulfa (Sulfonamide Allergy Hallucinati Verified 08/30/17 20:12 Antibiotics) ons Physical Exam Vitals: Vital Signs Temp Pulse Pulse Resp BP BP Pulse Ox 08/31/17 12:15 97.2 F L 120 H 16 127/75 90 L 08/31/17 11:57 120 H 08/31/17 11:45 111 H 08/31/17 09:30 96.9 F L 110 H 16 137/74 96 08/31/17 08:19 124 H 08/31/17 08:01 120 H 95 08/31/17 04:00 97.4 F L 94 18 110/65 98 08/31/17 00:00 97.5 F L 99 18 125/65 97 08/30/17 22:27 18 92 L 08/30/17 21:45 97.3 F L 110 H 18 125/73 91 L 08/30/17 20:45 128 H 18 150/70 96 08/30/17 20:08 126 H 18 140/106 97 08/30/17 19:55 128 H 08/30/17 19:45 133 H 08/30/17 19:13 140 H 08/30/17 19:09 97.6 F 135 H 18 154/66 95 Intake and Output 08/31/17 08/31/17 08/31/17 06:59 14:59 22:59 Intake Total 42.083 410 Balance 42.083 410 Intake: Intake, IV Titration 42.083 50 Amount Diltiazem 50 mg In Sodium 42.083 50 Chloride 0.9% 40 ml @ 5 MG/HR 5 mls/hr IV .Q10H [facility] Rx#:[id number] Oral 360 Other: Voiding Method Toilet # Voids 2 Weight 89.7 kg EYES: Pupils are round and reactive. Extraocular movements are intact. No conjunctival / lid redness or swelling. ENT: No external evidence of injury, swelling, or ecchymosis. Airway is patent. Throat is clear. NECK: Nontender. No swelling or evidence of injury. No subcutaneous emphysema. Trachea is midline. No thyroid mass. HEART: There is a tachycardic irregular rhythm. Good peripheral pulses. LUNGS/CHEST: Breath sounds clear and equal bilaterally. No rales, rhonchi, or wheezes. No ecchymosis, subcutaneous emphysema, or tenderness. ABDOMEN: Abdomen soft without tenderness. No palpable masses or organomegaly. No peritoneal signs. No abdominal wall swelling or ecchymosis. EXTREMITIES: No extremity tenderness. Normal muscle tone and function. No thoracolumbar tenderness. NEUROLOGIC: Sensation is grossly intact. Cranial nerve exam reveals face is symmetrical, tongue is midline, speech is clear. SKIN: No abrasions or ecchymosis is noted. No induration or masses noted. PSYCHIATRIC: Alert and oriented. Appropriate behavior and judgment. Results - Laboratory Findings CBC and BMP: 08/31/17 02:38 08/31/17 07:21 PT/INR, D-dimer PT 10.9 sec (9.0-12.0) 08/30/17 19:23 INR 1.1 (<1.2) 08/30/17 19:23 Abnormal lab findings: Abnormal Labs 08/30/17 08/31/17 08/31/17 19:23 06:30 07:21 Carbon Dioxide 21 L 19 L BUN 23 H 23 H Glucose 102 H 164 H POC Glucose (mg/dL) 149 H TSH <0.015 L 08/31/17 11:43 Carbon Dioxide BUN Glucose POC Glucose (mg/dL) 139 H TSH - Diagnostic Findings Chest x-ray: report reviewed, image reviewed (CHF-like changes versus early pulmonary fibrotic changes prominent pulmonary vasculature seen consistent with pulmonary hypertension) Assessment and Plan Assessment: Atrial fibrillation with rapid ventricular response Acute onset of shortness of breath is related to above Acute diastolic heart failure however ongoing chronic systolic colic failure cannot be excluded Likely severe pulmonary hypertension multifactorial awaiting echocardiogram results and reports Chronic persistent asthma mild to moderate category by history COPD moderate grade on bronchodilators as needed at home in the form of nebulizer Coronary artery disease and history of stent placement in RCA Hypertension hypertensive cardiovascular disease Dyslipidemia Elevated TSH Synthroid dose is being readjusted dyslipidemia Plan: Continue gentle diuresis Optimize medical therapy Deep breathing exercises incentive spirometry Follow up on echocardiogram Continue bronchodilators We'll hold on steroids or antibiotics at this point time Further recommendations pending plan of care as per clinical response of the patient Time with Patient: Greater than 30
[2017-08-31 15:26] LABS: Appearance,Urine Clear (Clear); Bilirubin,Urine Negative (Negative); Blood,Urine Negative (Negative); Color,Urine Yellow; Glucose,Urine (UA) Negative (Negative); Ketones,Urine Negative (Negative); Leukocyte Esterase,Urine Trace (Negative); Nitrite,Urine Negative (Negative); PH, Urine 5.5 (5.0-8.0); Protein,Urine Negative (Negative); RBC,Urine <1 /hpf (0-5); Specific Gravity,Urine 1.017 (1.001-1.035); Squamous Epithelial Cell,Urine 1 /hpf (0-4); Urobilinogen,Urine <2.0 mg/dL (<2.0); WBC,Urine 1 /hpf (0-5)
[2017-08-31 16:33] LABS: Glucose,Whole Blood 163 mg/dL (75-99)
--- NOTE | 2017-08-31 16:58 | PN ---
PROGRESS NOTE DATE OF SERVICE: 08/31/2017 This 72-year-old woman who was admitted with atrial fibrillation with fast ventricular rate as well as COPD is being closely monitored at this time. No chest pain. No palpitations. No fever. The patient was also seen by Pulmonology and Cardiology. The patient is still on Cardizem drip at this time. No chest pain. No palpitations. No fever. PHYSICAL EXAMINATION: Alert and oriented x3. The pulse is 120, blood pressure 127/75, respiration 16, temperature 97.2, pulse ox 90% on 2 L. HEENT: Conjunctivae normal. Oral mucosa moist. NECK: No jugular venous distention. No carotid bruit. No lymph node enlargement. CARDIOVASCULAR SYSTEM: S1, S2 muffled. Tachycardic. A few rhonchi. ABDOMEN: Soft. NERVOUS SYSTEM: No focal deficit. LABS: Accu-Cheks 149, 139. TSH noted. Free T3 and free T4 normal. ASSESSMENT: 1. Atrial fibrillation with fast ventricular rate. 2. Low TSH with normal free T3 and free T4. 3. Chronic obstructive pulmonary disease, acute exacerbation. 4. History of asthma. 5. History of coronary artery disease. 6. History of myocardial infarction. 7. History pneumonia. 8. History of gout. 9. History of coronary artery disease, stent. 10.History of cholecystectomy. RECOMMENDATIONS AND DISCUSSION: At this time I recommend to continue current medication, continue symptomatic treatment. Continue with Cardizem. Stop the steroids; patient is intolerant. Otherwise, continue the rest of the medications. Closely follow with multiple consultants. Increase ambulation. Further recommendations to follow. Keep holding the Synthroid at this time and continue to monitor. MMODL / IJN: [id number] /
[2017-08-31] MEDS: RIVAROXABAN 20 MG TAB PO SCH (17:43)
[2017-08-31] MEDS: MAGNESIUM OXIDE 400 MG TAB PO SCH (20:29)
[2017-08-31] MEDS: ATORVASTATIN 40 MG TAB PO SCH (20:29)
[2017-08-31 20:49] LABS: Glucose,Whole Blood 131 mg/dL (75-99)
[2017-08-31] MEDS: TEMAZEPAM 15 MG CAP PO PRN (23:03)
[2017-09-01] MEDS: ACETAMINOPHEN TAB 325 MG TAB PO PRN ×2 (01:19→07:54)
[2017-09-01] MEDS: DILTIAZEM 50 MG in SODIUM CHLORIDE 0.9% 40 ML IV SCH ×3 (01:19→15:42)
[2017-09-01 06:20] LABS: Glucose,Whole Blood 118 mg/dL (75-99)
[2017-09-01 06:38] LABS: Basophils % (A) 0 %; Eosinophils % (A) 0 %; HCT 36.7 % (34.0-46.0); HGB 11.3 gm/dL (11.4-16.0); Hypochromasia Slight; Lymphocytes % (A) 16 %; MCH 26.1 pg (25.0-35.0); MCHC 30.8 g/dL (31.0-37.0); MCV 84.6 fL (80.0-100.0); Mean Platelet Volume 7.4; Monocytes # (A) 0.8 k/uL (0-1.0); Monocytes % (A) 5 %; Neutrophils % (A) 77 %; Platelet Count 223 k/uL (150-450); RBC 4.34 m/uL (3.80-5.40); WBC 18.2 k/uL (3.8-10.6)
[2017-09-01 06:48] LABS: Calcium 9.4 mg/dL (8.4-10.2)
[2017-09-01] MEDS: CYANOCOBALAMIN 500 MCG TAB PO SCH (07:42)
[2017-09-01] MEDS: VIT A,C & E-LUTEIN-MINERALS 1 EACH TAB PO SCH ×2 (07:42→20:32)
[2017-09-01] MEDS: guaiFENesin 600 MG TABLET.ER PO SCH ×2 (07:42→20:32)
[2017-09-01] MEDS: ASPIRIN 81 MG PO SCH (07:42)
[2017-09-01] MEDS: CHOLECALCIFEROL 1,000 UNIT TAB PO SCH (07:42)
[2017-09-01] MEDS: NADOLOL 20 MG TAB PO SCH ×2 (07:43→20:32)
[2017-09-01] MEDS: BUDESONIDE 0.5 MG/2 ML NEBU INHALATION SCH ×2 (08:08→19:48)
[2017-09-01] MEDS: IPRATROPIUM-ALBUTEROL 3 ML NEB INHALATION SCH ×4 (08:08→19:48)
[2017-09-01] MEDS: MULTIVITAMINS, THERA 1 EACH TAB PO SCH (11:04)
--- NOTE | 2017-09-01 11:20 | PN ---
PROGRESS NOTE This is a 72-year-old female being managed for atrial fibrillation with RVR. Yesterday we increased the dose of nadolol to 40 mg twice daily. She got her first dose of 40 mg last evening. Today, her rates are still elevated 128 beats per minute. She is mildly short of breath at rest. She is afebrile, 97.2 degrees Fahrenheit, blood pressure 135/70 mmHg. She denies any chest discomfort, dizziness, or lightheadedness. Her TSH was suppressed and recently the dose of Synthroid was reduced to 50 mcg daily. Chest x- ray shows pulmonary fibrosis. PHYSICAL EXAMINATION: On examination, heart rate is tachycardic. Heart sounds are normal. Breath sounds are reduced bilaterally. Abdomen is soft, nontender. Extremities are warm. No edema. IMPRESSION: 1. Iatrogenic hyperthyroid state, recently the dose of Synthroid was reduced. 2. Beta justin dose was increased yesterday nadolol 40 mg twice daily. She got a 40 mg dose last evening for the first time and this morning she got 40 mg. She is on a Cardizem drip. SUGGEST: Rate control of atrial fibrillation. It is quite likely that it may take a few days to control her rate, especially since she has hyperthyroid state. Continue anticoagulation. MMODL / IJN: [id number] /
--- NOTE | 2017-09-01 14:00 | ECHOF ---
Referral Reason:cp and sob MEASUREMENTS -------- HEIGHT: 129.5 cm WEIGHT: 89.4 kg BP: 110/65 RVIDd: 2.1 cm (< 3.3) IVSd: 1.2 cm (0.6 - 1.1) LVIDd: 5.0 cm (3.9 - 5.3) LVPWd: 1.4 cm (0.6 - 1.1) IVSs: 1.6 cm LVIDs: 2.2 cm LVPWs: 1.9 cm LAESV Index (A-L): 84.84 ml/m Ao Diam: 3.2 cm (2.0 - 3.7) AV Cusp: 1.6 cm (1.5 - 2.6) LA Diam: 4.5 cm (2.7 - 3.8) MV EXCURSION: 10.933 mm (> 18.000) MV EF SLOPE: 76 mm/s (70 - 150) EPSS: 0.7 cm RAP: 5.00 mmHg RVSP: 27.93 mmHg FINDINGS -------- Atrial fibrillation. This was a technically good study. The left ventricular size is normal. There is mild concentric left ventricular hypertrophy. Overa ll left ventricular systolic function is normal with, an EF between 55 - 60 %. The right ventricle is normal in size and function. LA is severely dilated >40 ml/m2 RA appears enlarged. Aortic valve is trileaflet and is mildly thickened. The mitral valve leaflets are moderately thickened. Moderate mitral annular calcification present. [id number] mitral regurgitation is present. Mild tricuspid regurgitation present. The right ventricular systolic pressure, as measured by Doppl er, is 27.93mmHg. Pulmonic valve appears structurally normal. The pericardium is normal. CONCLUSIONS -------- 1. Atrial fibrillation. 2. This was a technically good study. 3. The left ventricular size is normal. 4. There is mild concentric left ventricular hypertrophy. 5. Overall left ventricular systolic function is normal with, an EF between 55 - 60 %. 6. The right ventricle is normal in size and function. 7. LA is severely dilated >40 ml/m2 8. RA appears enlarged. 9. Aortic valve is trileaflet and is mildly thickened. 10. The mitral valve leaflets are moderately thickened. 11. Moderate mitral annular calcification present. 12. [id number] mitral regurgitation is present. 13. Mild tricuspid regurgitation present. 14. The right ventricular systolic pressure, as measured by Doppler, is 27.93mmHg. 15. Pulmonic valve appears structurally normal. 16. The pericardium is normal. FLAP LINING BINDER: Rosa M Mccoy RDCS
--- NOTE | 2017-09-01 14:53 | P.PN ---
Subjective Progress Note Date: 09/01/17 Principal diagnosis: Acute COPD exacerbation, pulmonary fibrosis, atrial fibrillation with rapid ventricular response, acute on chronic diastolic heart failure with component of chronic systolic heart failure, severe COPD, chronic persistent asthma, coronary artery disease with history of stent placement in RCA, dyslipidemia, hypertension hypertensive cardiovascular disease 09/01/2017 patient seen eval examined during the rounds clinically patient has been doing well, palpitation shortness of breath and fever better under control being eval by cardiovascular services as well, patient thyroid dosage is being adjusted appears to have component of iatrogenic hyperthyroidism Miss Harmony Arias a 72-year-old female with history of chronic atrial fibrillation, patient has severe COPD emphysema as well as well as history of chronic persistent asthma 2 days prior to presenting into the hospital yesterday started having palpitations increasing shortness of breath with those problem patient is mental the emergency department where she was seen evaluated examined she was found to be in atrial fibrillation she has been on anticoagulation all along to rapid A. fib And has been admitted into the hospital she on specific questioning he denies any cough or sputum production denies any night sweats or fever or chills denies any seizure-like to a loss of consciousness or hemiparesis denies any bowel or bladder related dysfunction Objective - Vital Signs Vital signs: Vital Signs Temp 97.2 F L 09/01/17 07:32 Pulse 88 09/01/17 11:24 Resp 16 09/01/17 07:32 BP 135/70 09/01/17 07:32 Pulse Ox 98 09/01/17 08:10 Intake & Output 08/31/17 09/01/17 09/01/17 18:59 06:59 18:59 Intake Total 1174.375 125 649.5 Output Total 400 Balance 774.375 125 649.5 Weight 96.6 kg Intake: IV 75 Diltiazem 50 mg In Sodium 75 Chloride 0.9% 40 ml @ 5 MG/HR 5 mls/hr IV .Q10H [facility] Rx#:[id number] Intake, IV Titration 94.375 50 49.5 Amount Diltiazem 50 mg In Sodium 94.375 50 49.5 Chloride 0.9% 40 ml @ 5 MG/HR 5 mls/hr IV .Q10H [facility]AN Rx#:[id number] Oral 1080 600 Output: Urine 400 Other: Voiding Method Toilet Toilet # Voids 1 - Exam EYES: Pupils are round and reactive. Extraocular movements are intact. No conjunctival / lid redness or swelling. ENT: No external evidence of injury, swelling, or ecchymosis. Airway is patent. Throat is clear. NECK: Nontender. No swelling or evidence of injury. No subcutaneous emphysema. Trachea is midline. No thyroid mass. HEART: There is a tachycardic irregular rhythm. Good peripheral pulses. LUNGS/CHEST: Breath sounds clear and equal bilaterally. No rales, rhonchi, or wheezes. No ecchymosis, subcutaneous emphysema, or tenderness. ABDOMEN: Abdomen soft without tenderness. No palpable masses or organomegaly. No peritoneal signs. No abdominal wall swelling or ecchymosis. EXTREMITIES: No extremity tenderness. Normal muscle tone and function. No thoracolumbar tenderness. NEUROLOGIC: Sensation is grossly intact. Cranial nerve exam reveals face is symmetrical, tongue is midline, speech is clear. SKIN: No abrasions or ecchymosis is noted. No induration or masses noted. PSYCHIATRIC: Alert and oriented. Appropriate behavior and judgment. - Labs CBC & Chem 7: 09/01/17 06:10 09/01/17 06:10 Labs: Abnormal Lab Results - Last 24 Hours (Table) 08/31/17 08/31/17 08/31/17 Range/Units 16:11 20:47 Unknown WBC (3.8-10.6) k/uL Hgb (11.4-16.0) gm/dL MCHC (31.0-37.0) g/dL Neutrophils # (1.3-7.7) k/uL Carbon Dioxide (22-30) mmol/L BUN (7-17) mg/dL Glucose (74-99) mg/dL POC Glucose (mg/dL) 163 H 131 H (75-99) mg/dL Ur Leukocyte Esterase Trace H (Negative) 09/01/17 09/01/17 09/01/17 Range/Units 06:10 06:10 06:19 WBC 18.2 H (3.8-10.6) k/uL Hgb 11.3 L (11.4-16.0) gm/dL MCHC 30.8 L (31.0-37.0) g/dL Neutrophils # 14.0 H (1.3-7.7) k/uL Carbon Dioxide 21 L (22-30) mmol/L BUN 27 H (7-17) mg/dL Glucose 123 H (74-99) mg/dL POC Glucose (mg/dL) 118 H (75-99) mg/dL Ur Leukocyte Esterase (Negative) Assessment and Plan Assessment: Atrial fibrillation with rapid ventricular response Iatrogenic hyperthyroidism very low TSH, Synthroid dose is being readjusted Acute onset of shortness of breath is related to above Acute diastolic heart failure however ongoing chronic systolic colic failure cannot be excluded Likely severe pulmonary hypertension multifactorial awaiting echocardiogram results and reports Chronic persistent asthma mild to moderate category by history COPD moderate grade on bronchodilators as needed at home in the form of nebulizer Coronary artery disease and history of stent placement in RCA Hypertension hypertensive cardiovascular disease Dyslipidemia dyslipidemia Plan: Continue gentle diuresis Optimize medical therapy Deep breathing exercises incentive spirometry Follow up on echocardiogram, ejection fraction is 55%, mild elevated PA pressure noted, LA severely dilated over 40 mL/m2 Continue bronchodilators We'll hold on steroids or antibiotics at this point time Further recommendations pending plan of care as per clinical response of the patient agree with discharge planning with follow-up in outpatient setting Time with Patient: Greater than 30
[2017-09-01] MEDS: RIVAROXABAN 20 MG TAB PO SCH (17:08)
--- NOTE | 2017-09-01 19:59 | P.PN ---
Subjective Progress Note Date: 09/01/17 Progress note being dictated for Dr. Tanner. Interval history: This is a 72-year-old female admitted with atrial fibrillation with rapid ventricular rate, acute COPD exacerbation and multiple other medical issues. Telemetry reporting atrial fibrillation with fast ventricular rate -continues on Cardizem drip. Afebrile. Denies chest pain, palpitations. Denies lightheadedness dizziness or focal deficits. Objective - Vital Signs Vital signs: Vital Signs Temp 97.0 F L 09/01/17 16:10 Pulse 88 09/01/17 16:11 Resp 16 09/01/17 16:10 BP 108/73 09/01/17 16:10 Pulse Ox 97 09/01/17 16:10 Intake & Output 09/01/17 09/01/17 09/02/17 06:59 18:59 06:59 Intake Total 125 1059.5 Balance 125 1059.5 Weight 96.6 kg 92.8 kg Intake: IV 75 Diltiazem 50 mg In Sodium 75 Chloride 0.9% 40 ml @ 5 MG/HR 5 mls/hr IV .Q10H [facility] Rx#:[id number] Intake, IV Titration 50 99.5 Amount Diltiazem 50 mg In Sodium 50 99.5 Chloride 0.9% 40 ml @ 5 MG/HR 5 mls/hr IV .Q10H [facility] Rx#:[id number] Oral 960 Other: Voiding Method Toilet Toilet # Voids 1 1 - Exam PHYSICAL EXAM: VITAL SIGNS: As above GENERAL: Sitting up in chair, no acute distress HEENT: Conjunctivae normal. eyes normal. Oral mucosa moist NECK: No JVD. No thyroid enlargement. No LNs CARDIOVASCULAR: S1, S2 muffled. Tachycardic, No murmur RESPIRATION: Breath sounds diminished in the bases. Occasional scattered rhonchi ABDOMEN: Soft, nontender . No guarding. no masses palpable. Bowel sounds heard. LEGS: No edema. no swelling PSYCHIATRY: Alert and oriented -3, mood and affect normal. NERVOUS SYSTEM: Cranial N 2-12 grossly normal. Moves all 4 limbs. Diffuse weakness No focal deficits. - Labs CBC & Chem 7: 09/01/17 06:10 09/01/17 06:10 Labs: Abnormal Lab Results - Last 24 Hours (Table) 08/31/17 09/01/17 09/01/17 Range/Units 20:47 06:10 06:10 WBC 18.2 H (3.8-10.6) k/uL Hgb 11.3 L (11.4-16.0) gm/dL MCHC 30.8 L (31.0-37.0) g/dL Neutrophils # 14.0 H (1.3-7.7) k/uL Carbon Dioxide 21 L (22-30) mmol/L BUN 27 H (7-17) mg/dL Glucose 123 H (74-99) mg/dL POC Glucose (mg/dL) 131 H (75-99) mg/dL 09/01/17 Range/Units 06:19 WBC (3.8-10.6) k/uL Hgb (11.4-16.0) gm/dL MCHC (31.0-37.0) g/dL Neutrophils # (1.3-7.7) k/uL Carbon Dioxide (22-30) mmol/L BUN (7-17) mg/dL Glucose (74-99) mg/dL POC Glucose (mg/dL) 118 H (75-99) mg/dL Assessment and Plan Assessment: 1. Atrial fibrillation with RVR 2. Low TSH with normal free T3 and free T4 3 acute exacerbation COPD 4. Leukocytosis, steroid-induced Plan: Continue current medication regime ,monitoring and symptomatic treatment. Antiarrhythmics as per cardiology. Anticoagulated on Xarelto.Maintain nebulized bronchodilators. Aggressive pulmonary toileting. Further recommendations to follow. The impression and plan of care has been dictated as directed. : I performed a history and examination of this patient, discussed the same with the dictator. I agree with the dictator's note ,documented as a scribe. Any additional findings or plans will be noted.
[2017-09-01] MEDS: ATORVASTATIN 40 MG TAB PO SCH (20:32)
[2017-09-01] MEDS: MAGNESIUM OXIDE 400 MG TAB PO SCH (20:32)
[2017-09-01] MEDS: DOCUSATE 100 MG CAP PO SCH (21:11)
[2017-09-01] MEDS ORDERED: SODIUM CHLORIDE 0.65% NASAL SPRAY 44 ML BTL NASAL PRN (22:21)
[2017-09-02 06:25] LABS: Basophils % (A) 1 %; Eosinophils # (A) 0.3 k/uL (0-0.7); Eosinophils % (A) 3 %; HGB 10.8 gm/dL (11.4-16.0); Hypochromasia Slight; Lymphocytes % (A) 35 %; MCH 26.5 pg (25.0-35.0); MCHC 31.7 g/dL (31.0-37.0); MCV 83.6 fL (80.0-100.0); Mean Platelet Volume 6.8; Monocytes # (A) 0.5 k/uL (0-1.0); Monocytes % (A) 6 %; Neutrophils # (A) 4.5 k/uL (1.3-7.7); Neutrophils % (A) 53 %; Platelet Count 183 k/uL (150-450); RBC 4.06 m/uL (3.80-5.40); WBC 8.5 k/uL (3.8-10.6)
[2017-09-02 06:48] LABS: Calcium 9.2 mg/dL (8.4-10.2); Potassium 4.8 mmol/L (3.5-5.1)
[2017-09-02] MEDS: BUDESONIDE 0.5 MG/2 ML NEBU INHALATION SCH ×2 (07:45→20:36)
[2017-09-02] MEDS: IPRATROPIUM-ALBUTEROL 3 ML NEB INHALATION SCH ×4 (07:45→20:36)
[2017-09-02] MEDS: NADOLOL 20 MG TAB PO SCH (08:16)
[2017-09-02] MEDS: ASPIRIN 81 MG PO SCH (08:17)
[2017-09-02] MEDS: CHOLECALCIFEROL 1,000 UNIT TAB PO SCH (08:17)
[2017-09-02] MEDS: MULTIVITAMINS, THERA 1 EACH TAB PO SCH (08:17)
[2017-09-02] MEDS: VIT A,C & E-LUTEIN-MINERALS 1 EACH TAB PO SCH ×2 (08:17→20:41)
[2017-09-02] MEDS: guaiFENesin 600 MG TABLET.ER PO SCH ×2 (08:17→20:46)
[2017-09-02] MEDS: CYANOCOBALAMIN 500 MCG TAB PO SCH (08:17)
[2017-09-02] MEDS: DOCUSATE 100 MG CAP PO SCH ×2 (08:17→20:41)
[2017-09-02] MEDS: DILTIAZEM 50 MG in SODIUM CHLORIDE 0.9% 40 ML IV SCH (11:45)
--- NOTE | 2017-09-02 13:06 | PN ---
PROGRESS NOTE This is a 72-year-old female who presented with atrial fibrillation with RVR. She is appropriately anticoagulated. She was on nadolol. The dose of nadolol was increased, but her atrial fibrillation rates are still poorly controlled and she is on IV diltiazem. Head and neck examination is normal. Heart sounds are normal. She feels a little better. She is less short of breath, but atrial fibrillation rates are still not completely controlled. Her hemoglobin is 10.8. Electrolytes are normal. Potassium is normal. Her TSH is suppressed and she is hypothyroid. SUGGEST: Switch to metoprolol 100 mg twice daily. This will be increased further. Diltiazem drip will be stopped. MMODL / IJN: [id number] /
--- NOTE | 2017-09-02 14:16 | P.PN ---
Subjective Progress Note Date: 09/02/17 Principal diagnosis: Acute COPD exacerbation, pulmonary fibrosis, atrial fibrillation with rapid ventricular response, acute on chronic diastolic heart failure with component of chronic systolic heart failure, severe COPD, chronic persistent asthma, coronary artery disease with history of stent placement in RCA, dyslipidemia, hypertension hypertensive cardiovascular disease 09/02/2017, patient seen eval examined during the rounds clinically patient has been doing well still and rapid ventricular response but however severity has improved the rate is slightly better hemodynamic status stable, patient's Synthroid dose is being adjusted as well, she does have a history of snoring off and on I've advised her for a polysomnogram patient wants to think about it. Medications reviewed him a white cell count is down to 8000 patient is being monitored off of his steroids and antibiotics on the on bronchodilator 09/01/2017 patient seen eval examined during the rounds clinically patient has been doing well, palpitation shortness of breath and fever better under control being eval by cardiovascular services as well, patient thyroid dosage is being adjusted appears to have component of iatrogenic hyperthyroidism Miss Harmony Arias a 72-year-old female with history of chronic atrial fibrillation, patient has severe COPD emphysema as well as well as history of chronic persistent asthma 2 days prior to presenting into the hospital yesterday started having palpitations increasing shortness of breath with those problem patient is mental the emergency department where she was seen evaluated examined she was found to be in atrial fibrillation she has been on anticoagulation all along to rapid A. fib And has been admitted into the hospital she on specific questioning he denies any cough or sputum production denies any night sweats or fever or chills denies any seizure-like to a loss of consciousness or hemiparesis denies any bowel or bladder related dysfunction Objective - Vital Signs Vital signs: Vital Signs Temp 97.1 F L 09/02/17 11:48 Pulse 83 09/02/17 11:48 Resp 18 09/02/17 11:48 BP 113/67 09/02/17 11:48 Pulse Ox 94 L 09/02/17 11:48 Intake & Output 09/01/17 09/02/17 09/02/17 18:59 06:59 18:59 Intake Total 1059.5 495 180 Balance 1059.5 495 180 Weight 92.8 kg 93.3 kg Intake: IV 445 0.9 320 Diltiazem 50 mg In Sodium 125 Chloride 0.9% 40 ml @ 5 MG/HR 5 mls/hr IV .Q10H [facility] Rx#:[id number] Intake, IV Titration 99.5 50 Amount Diltiazem 50 mg In Sodium 99.5 50 Chloride 0.9% 40 ml @ 5 MG/HR 5 mls/hr IV .Q10H [facility] Rx#:[id number] Oral 960 180 Other: Voiding Method Toilet Toilet # Voids 1 1 - Exam EYES: Pupils are round and reactive. Extraocular movements are intact. No conjunctival / lid redness or swelling. ENT: No external evidence of injury, swelling, or ecchymosis. Airway is patent. Throat is clear. NECK: Nontender. No swelling or evidence of injury. No subcutaneous emphysema. Trachea is midline. No thyroid mass. HEART: There is a tachycardic irregular rhythm. Good peripheral pulses. LUNGS/CHEST: Breath sounds clear and equal bilaterally. No rales, rhonchi, or wheezes. No ecchymosis, subcutaneous emphysema, or tenderness. ABDOMEN: Abdomen soft without tenderness. No palpable masses or organomegaly. No peritoneal signs. No abdominal wall swelling or ecchymosis. EXTREMITIES: No extremity tenderness. Normal muscle tone and function. No thoracolumbar tenderness. NEUROLOGIC: Sensation is grossly intact. Cranial nerve exam reveals face is symmetrical, tongue is midline, speech is clear. SKIN: No abrasions or ecchymosis is noted. No induration or masses noted. PSYCHIATRIC: Alert and oriented. Appropriate behavior and judgment. - Labs CBC & Chem 7: 09/02/17 06:13 09/02/17 06:13 Labs: Abnormal Lab Results - Last 24 Hours (Table) 09/02/17 09/02/17 Range/Units 06:13 06:13 Hgb 10.8 L (11.4-16.0) gm/dL BUN 31 H (7-17) mg/dL Assessment and Plan Assessment: Atrial fibrillation with rapid ventricular response Iatrogenic hyperthyroidism very low TSH, Synthroid dose is being readjusted Acute onset of shortness of breath is related to above Acute diastolic heart failure however ongoing chronic systolic colic failure cannot be excluded Likely severe pulmonary hypertension multifactorial awaiting echocardiogram results and reports Chronic persistent asthma mild to moderate category by history COPD moderate grade on bronchodilators as needed at home in the form of nebulizer Coronary artery disease and history of stent placement in RCA Hypertension hypertensive cardiovascular disease Dyslipidemia Sleep disorder breathing and sleep apnea Plan: Polysomnogram as outpatient if patient agreeable Continue gentle diuresis Optimize medical therapy Deep breathing exercises incentive spirometry Follow up on echocardiogram, ejection fraction is 55%, mild elevated PA pressure noted, LA severely dilated over 40 mL/m2 Continue bronchodilators We'll hold on steroids or antibiotics at this point time Further recommendations pending plan of care as per clinical response of the patient agree with discharge planning with follow-up in outpatient setting Time with Patient: Greater than 30
[2017-09-02] MEDS: RIVAROXABAN 20 MG TAB PO SCH (16:44)
[2017-09-02] MEDS: METOPROLOL TARTRATE 50 MG TAB PO SCH (20:41)
[2017-09-02] MEDS: ATORVASTATIN 40 MG TAB PO SCH (20:45)
[2017-09-02] MEDS: MAGNESIUM OXIDE 400 MG TAB PO SCH (20:46)
--- NOTE | 2017-09-02 22:08 | PN ---
PROGRESS NOTE DATE OF SERVICE: 09/02/2017. INTERVAL HISTORY: This 72-year-old woman who was admitted with atrial fibrillation with fast ventricular rate is being closely monitored. The patient also had depressed suppressed T4 and thyroid supplementations are on hold at this time. No chest pain. No palpitations. No fever. EXAM: Alert and oriented times three. Pulse 103, blood pressure 137/76, respiration 18, temperature 97.2, pulse ox 98% on room air. HEENT: Conjunctivae normal. NECK: No jugular venous distention. CARDIOVASCULAR: S1, S2 muffled. RESPIRATORY: Breath sounds diminished in the bases. A few rhonchi. No crackles. Abdomen is soft, nontender. Legs are no edema, no swelling. CENTRAL NERVOUS SYSTEM: No focal deficits. LABS: WBC 8.2, hemoglobin is 10.8. ASSESSMENT: 1. Atrial fibrillation with rapid ventricular rate. 2. Low TSH. 3. Normal free T3, free T4. 4. Chronic obstructive pulmonary disease acute exacerbation. 5. Leukocytosis, steroid induced. RECOMMENDATIONS AND DISCUSSION: Recommend to continue current medications, monitoring, management. Symptomatic treatment. Closely follow with Cardiology. Guarded prognosis. Further recommendations to follow. MMODL / IJN: [id number] /
[2017-09-03] MEDS: DILTIAZEM 50 MG in SODIUM CHLORIDE 0.9% 40 ML IV SCH ×2 (00:12→06:44)
[2017-09-03 06:21] LABS: Basophils % (A) 1 %; Eosinophils # (A) 0.4 k/uL (0-0.7); Eosinophils % (A) 5 %; HCT 34.5 % (34.0-46.0); HGB 10.9 gm/dL (11.4-16.0); Hypochromasia Slight; Lymphocytes # (A) 2.5 k/uL (1.0-4.8); Lymphocytes % (A) 31 %; MCH 26.4 pg (25.0-35.0); MCHC 31.6 g/dL (31.0-37.0); MCV 83.4 fL (80.0-100.0); Mean Platelet Volume 7.1; Monocytes # (A) 0.6 k/uL (0-1.0); Monocytes % (A) 7 %; Neutrophils # (A) 4.2 k/uL (1.3-7.7); Neutrophils % (A) 53 %; Platelet Count 190 k/uL (150-450); RBC 4.14 m/uL (3.80-5.40); RDW 14.9 % (11.5-15.5); WBC 7.9 k/uL (3.8-10.6)
[2017-09-03 06:32] LABS: Potassium 4.7 mmol/L (3.5-5.1)
[2017-09-03] MEDS: BUDESONIDE 0.5 MG/2 ML NEBU INHALATION SCH ×2 (07:20→19:42)
[2017-09-03] MEDS: IPRATROPIUM-ALBUTEROL 3 ML NEB INHALATION SCH ×4 (07:20→19:42)
[2017-09-03] MEDS: VIT A,C & E-LUTEIN-MINERALS 1 EACH TAB PO SCH ×2 (08:08→20:33)
[2017-09-03] MEDS: CYANOCOBALAMIN 500 MCG TAB PO SCH (08:08)
[2017-09-03] MEDS: METOPROLOL TARTRATE 50 MG TAB PO SCH (08:08)
[2017-09-03] MEDS: guaiFENesin 600 MG TABLET.ER PO SCH ×2 (08:08→20:33)
[2017-09-03] MEDS: CHOLECALCIFEROL 1,000 UNIT TAB PO SCH (08:09)
[2017-09-03] MEDS: ASPIRIN 81 MG PO SCH (08:09)
[2017-09-03] MEDS: MULTIVITAMINS, THERA 1 EACH TAB PO SCH (08:09)
[2017-09-03] MEDS: DOCUSATE 100 MG CAP PO SCH ×2 (08:15→20:33)
[2017-09-03] MEDS ORDERED: METOPROLOL TARTRATE 50 MG TAB PO STA (10:10)
[2017-09-03] MEDS: FUROSEMIDE 20 MG TAB PO SCH (11:01)
--- NOTE | 2017-09-03 11:02 | P.PN ---
Subjective Progress Note Date: 09/03/17 This is a pleasant 72-year-old female who follows with Dr. Flynn in the office, she has known history of coronary artery disease and prior stent placement of the right coronary artery, hypertension, hyperlipidemia, asthma, COPD, hypothyroidism, paroxysmal atrial fibrillation. She presented to the hospital on this occasion with symptoms of palpitations. According to the patient she has recently seen Dr. Elizabeth in the office, she decreased her dose of Synthroid because her TSH level was significantly low. She had been taking 75 g this was decreased to 50. Results to the hospital on this occasion with symptoms of palpitations and feeling her heart racing fast. Patient also states she had some chest discomfort with radiation to her shoulders and was mildly short of breath. States she was wheezing quite a bit on presentation here. Her EKG on presentation here showed atrial fibrillation with a rapid ventricular response. Chest x-ray shows pulmonary fibrosis, no heart failure, clearing of a mild infiltrate. Blood pressure 110/60, heart rate in the 120s, 95% on 2 L. CBC is normal, sodium 139, potassium 5.0, BUN 23, creatinine 0.8. Troponin 0.012, 0.027. TSH level 0.015 free T4 1 0.8 and free T3 4 0.5. Synthroid has currently been placed on hold. Time of my examination this morning, patient is feeling significantly better than her presentation here. She still states that she can feel palpitations, breathing is improved. 09/03/2017 Patient was seen and examined this morning she continues to be in atrial fibrillation with a heart rate in the 1 teens. Patient also complains of some mild swelling in her lower extremities today, for which she states she takes a when necessary dose of Lasix at home. Blood pressure 116/70. White blood cell count 7.9, hemoglobin 10.9, platelet count 190. Sodium 138, potassium 4.7, BUN 29, creatinine 0.9. Objective - Vital Signs Vital signs: Vital Signs Temp 97.2 F L 09/03/17 08:00 Pulse 71 09/03/17 08:00 Resp 18 09/03/17 08:00 BP 116/78 09/03/17 08:00 Pulse Ox 95 09/03/17 08:00 Intake & Output 09/02/17 09/03/17 09/03/17 18:59 06:59 18:59 Intake Total 410 1109 Output Total 600 0 Balance -190 1109 Weight 93.2 kg Intake: IV 100 0.9 100 Intake, IV Titration 50 49 Amount Diltiazem 50 mg In Sodium 50 49 Chloride 0.9% 40 ml @ 5 MG/HR 5 mls/hr IV .Q10H [facility] Rx#:[id number] Oral 360 960 Output: Urine 600 Stool 0 Other: Voiding Method Toilet # Voids 2 - Exam PHYSICAL EXAMINATION: GENERAL: 72-year-old female in no apparent distress at the time of my examination. HEENT: Head is atraumatic, normocephalic. Pupils equal, round. Sclera anicteric. Conjunctiva are clear. Mucous membranes of the mouth are moist. Neck is supple. There is no elevated jugular venous pressure.] bruit is heard. HEART EXAMINATION: Heart S1 and S2 irregularly irregular systolic murmur is heard CHEST EXAMINATION: Lungs are clear with fine wheezing heard. ABDOMEN: Soft, nontender. Bowel sounds are heard. No organomegaly noted. EXTREMITIES: 2+ peripheral pulses with no evidence of peripheral edema and no calf tenderness noted. NEUROLOGIC patient is awake, alert and oriented -3. . - Labs CBC & Chem 7: 09/03/17 06:01 09/03/17 06:01 Labs: Abnormal Lab Results - Last 24 Hours (Table) 09/03/17 09/03/17 Range/Units 06:01 06:01 Hgb 10.9 L (11.4-16.0) gm/dL BUN 29 H (7-17) mg/dL Assessment and Plan Plan: Assessment and plan #1 atrial fibrillation with rapid ventricular response, persistent , patient is on Xarelto for anticoagulation. Currently on IV Cardizem drip. #2 known history of coronary disease with prior RCA stenting #3 hypertension #4 History of hypothyroidism, TSH level 0.015 this admission, Synthroid placed on hold. #5 hyperlipidemia Plan Echocardiogram with Doppler study was performed which revealed an ejection fraction of 55-60%. Mild to moderate mitral regurgitation. We will discontinue the IV Cardizem today, increase the metoprolol to 150 in the morning and 100 in the evening. We will also start the patient on Lasix 20 mg daily. Patient has been encouraged. Ambulating as tolerated today. DNP note has been reviewed, I agree with a documented findings and plan of care. Patient was seen and examined.
[2017-09-03] MEDS: RIVAROXABAN 20 MG TAB PO SCH (15:25)
[2017-09-03] MEDS: MAGNESIUM OXIDE 400 MG TAB PO SCH (20:33)
[2017-09-03] MEDS: ATORVASTATIN 40 MG TAB PO SCH (20:33)
--- NOTE | 2017-09-03 21:13 | PN ---
PROGRESS NOTE DATE OF SERVICE: 09/03/2017 This 72-year-old woman was admitted to the hospital with atrial fibrillation with fast ventricular rate is being closely monitored. Medications adjusted. No chest pain. No palpitations. No fever. EXAM: Alert and oriented times three. Pulse 116 irregular. Blood pressure is 125/74, respiration 18, temperature 97 degrees, pulse ox 94% on room air. HEENT: Conjunctivae normal. NECK: No jugular venous distention. CARDIOVASCULAR: S1, S2 muffled. RESPIRATIONS: Diminished in the bases. No rhonchi. No crackles. ABDOMEN: Soft, nontender. LEGS are no edema. No swelling. CENTRAL NERVOUS SYSTEM: No focal deficits. LABS: Hemoglobin 10.9. Other labs are noted. ASSESSMENT: 1. Atrial fibrillation with rapid ventricular rate. 2. Low TSH. 3. Normal free T3, free T4. 4. Chronic obstructive pulmonary disease acute exacerbation. 5. Leukocytosis steroid induced. RECOMMENDATIONS AND DISCUSSION: Recommend to continue current medications, management and symptomatic treatment. Otherwise, at this time, I would recommend continue with medication adjustment including the beta blockers. I would also recommend a repeat TSH in the morning. Otherwise, guarded prognosis because of multiple complex medical issues and further recommendations to follow. MMODL / IJN: [id number] /
[2017-09-04] MEDS: TEMAZEPAM 15 MG CAP PO PRN (01:00)
[2017-09-04] MEDS: IPRATROPIUM-ALBUTEROL 3 ML NEB INHALATION SCH ×4 (06:55→19:33)
[2017-09-04] MEDS: BUDESONIDE 0.5 MG/2 ML NEBU INHALATION SCH ×2 (06:55→19:33)
[2017-09-04] MEDS: CYANOCOBALAMIN 500 MCG TAB PO SCH (08:05)
[2017-09-04] MEDS: ASPIRIN 81 MG PO SCH (08:05)
[2017-09-04] MEDS: CHOLECALCIFEROL 1,000 UNIT TAB PO SCH (08:05)
[2017-09-04] MEDS: FUROSEMIDE 20 MG TAB PO SCH (08:06)
[2017-09-04] MEDS: DOCUSATE 100 MG CAP PO SCH ×2 (08:06→20:03)
[2017-09-04] MEDS: VIT A,C & E-LUTEIN-MINERALS 1 EACH TAB PO SCH ×2 (08:06→20:03)
[2017-09-04] MEDS: METOPROLOL TARTRATE 50 MG TAB PO SCH ×2 (08:06→17:44)
[2017-09-04] MEDS: guaiFENesin 600 MG TABLET.ER PO SCH ×2 (08:06→20:02)
--- NOTE | 2017-09-04 08:33 | P.PN ---
Subjective Progress Note Date: 09/04/17 Principal diagnosis: Acute COPD exacerbation, pulmonary fibrosis, atrial fibrillation with rapid ventricular response, acute on chronic diastolic heart failure with component of chronic systolic heart failure, severe COPD, chronic persistent asthma, coronary artery disease with history of stent placement in RCA, dyslipidemia, hypertension hypertensive cardiovascular disease 09/04/2017, patient seen eval examined during the rounds clinically doing well especially at rest however had another episode of atrial fibrillation with rapid ventricular response, cardiovascular services been following and adjusting the medications, patient continued to deny any sputum production wheezing shortness of breath is being treated with bronchodilator she is being monitor observe off of his steroids, I had another discussion with her about importance of sleep disorder breathing and sleep apnea evaluation patient continued to decline for now we'll continue to treat asthma as a chronic stable persistent asthma and optimize therapy for A. fib and heart failure associated 09/03/2017, patient seen eval examined during the rounds clinically patient doing well in terms of breathing but still have intermittent episodes of atrial fibrillation with rapid ventricular response during that process patient developed shortness of breath however denies any cough or sputum production denies any chest pain at rest, 09/02/2017, patient seen eval examined during the rounds clinically patient has been doing well still and rapid ventricular response but however severity has improved the rate is slightly better hemodynamic status stable, patient's Synthroid dose is being adjusted as well, she does have a history of snoring off and on I've advised her for a polysomnogram patient wants to think about it. Medications reviewed him a white cell count is down to 8000 patient is being monitored off of his steroids and antibiotics on the on bronchodilator 09/01/2017 patient seen eval examined during the rounds clinically patient has been doing well, palpitation shortness of breath and fever better under control being eval by cardiovascular services as well, patient thyroid dosage is being adjusted appears to have component of iatrogenic hyperthyroidism Miss Harmony Arias a 72-year-old female with history of chronic atrial fibrillation, patient has severe COPD emphysema as well as well as history of chronic persistent asthma 2 days prior to presenting into the hospital yesterday started having palpitations increasing shortness of breath with those problem patient is mental the emergency department where she was seen evaluated examined she was found to be in atrial fibrillation she has been on anticoagulation all along to rapid A. fib And has been admitted into the hospital she on specific questioning he denies any cough or sputum production denies any night sweats or fever or chills denies any seizure-like to a loss of consciousness or hemiparesis denies any bowel or bladder related dysfunction Objective - Vital Signs Vital signs: Vital Signs Temp 97 F L 09/04/17 08:00 Pulse 124 H 09/04/17 08:00 Resp 18 09/04/17 08:00 BP 121/84 09/04/17 08:00 Pulse Ox 92 L 09/04/17 08:00 Intake & Output 09/03/17 09/04/17 09/04/17 18:59 06:59 18:59 Intake Total 230 1170 240 Output Total 550 350 Balance -320 820 240 Weight 91.4 kg Intake: IV 10 Invasive Line 1 10 Oral 230 1160 240 Output: Urine 550 350 Stool 0 Other: Voiding Method Toilet # Voids 3 - Exam EYES: Pupils are round and reactive. Extraocular movements are intact. No conjunctival / lid redness or swelling. ENT: No external evidence of injury, swelling, or ecchymosis. Airway is patent. Throat is clear. NECK: Nontender. No swelling or evidence of injury. No subcutaneous emphysema. Trachea is midline. No thyroid mass. HEART: There is a tachycardic irregular rhythm. Good peripheral pulses. LUNGS/CHEST: Breath sounds clear and equal bilaterally. No rales, rhonchi, or wheezes. No ecchymosis, subcutaneous emphysema, or tenderness. ABDOMEN: Abdomen soft without tenderness. No palpable masses or organomegaly. No peritoneal signs. No abdominal wall swelling or ecchymosis. EXTREMITIES: No extremity tenderness. Normal muscle tone and function. No thoracolumbar tenderness. NEUROLOGIC: Sensation is grossly intact. Cranial nerve exam reveals face is symmetrical, tongue is midline, speech is clear. SKIN: No abrasions or ecchymosis is noted. No induration or masses noted. PSYCHIATRIC: Alert and oriented. Appropriate behavior and judgment. - Labs CBC & Chem 7: 09/03/17 06:01 09/03/17 06:01 Labs: Abnormal Lab Results - Last 24 Hours (Table) 09/03/17 Range/Units 06:01 TSH <0.015 L (0.465-4.680) mIU/L Assessment and Plan Assessment: Atrial fibrillation with rapid ventricular response Iatrogenic hyperthyroidism very low TSH, Synthroid dose is being readjusted Acute onset of shortness of breath is related to above Acute diastolic heart failure however ongoing chronic systolic colic failure cannot be excluded Likely severe pulmonary hypertension multifactorial awaiting echocardiogram results and reports Chronic persistent asthma mild to moderate category by history COPD moderate grade on bronchodilators as needed at home in the form of nebulizer Coronary artery disease and history of stent placement in RCA Hypertension hypertensive cardiovascular disease Dyslipidemia Sleep disorder breathing and sleep apnea Plan: Polysomnogram as outpatient if patient agreeable Continue gentle diuresis Optimize medical therapy Deep breathing exercises incentive spirometry Follow echocardiogram reviewed, ejection fraction is 55%, mild elevated PA pressure noted, LA severely dilated over 40 mL/m2 Continue bronchodilators We'll hold on steroids or antibiotics at this point time Further recommendations pending plan of care as per clinical response of the patient agree with discharge planning with follow-up in outpatient setting Time with Patient: Greater than 30
--- NOTE | 2017-09-04 14:54 | P.PN ---
Subjective Progress Note Date: 09/04/17 This is a pleasant 72-year-old female who follows with Dr. Flynn in the office, she has known history of coronary artery disease and prior stent placement of the right coronary artery, hypertension, hyperlipidemia, asthma, COPD, hypothyroidism, paroxysmal atrial fibrillation. She presented to the hospital on this occasion with symptoms of palpitations. According to the patient she has recently seen Dr. Elizabeth in the office, she decreased her dose of Synthroid because her TSH level was significantly low. She had been taking 75 g this was decreased to 50. Results to the hospital on this occasion with symptoms of palpitations and feeling her heart racing fast. Patient also states she had some chest discomfort with radiation to her shoulders and was mildly short of breath. States she was wheezing quite a bit on presentation here. Her EKG on presentation here showed atrial fibrillation with a rapid ventricular response. Chest x-ray shows pulmonary fibrosis, no heart failure, clearing of a mild infiltrate. Blood pressure 110/60, heart rate in the 120s, 95% on 2 L. CBC is normal, sodium 139, potassium 5.0, BUN 23, creatinine 0.8. Troponin 0.012, 0.027. TSH level 0.015 free T4 1 0.8 and free T3 4 0.5. Synthroid has currently been placed on hold. Time of my examination this morning, patient is feeling significantly better than her presentation here. She still states that she can feel palpitations, breathing is improved. 09/03/2017 Patient was seen and examined this morning she continues to be in atrial fibrillation with a heart rate in the 1 teens. Patient also complains of some mild swelling in her lower extremities today, for which she states she takes a when necessary dose of Lasix at home. Blood pressure 116/70. White blood cell count 7.9, hemoglobin 10.9, platelet count 190. Sodium 138, potassium 4.7, BUN 29, creatinine 0.9. 09/04/2017 Patient seen and examined this morning, had an episode of chest pain earlier, her heart rate at that time was noted to be up in the 1:30 range. Patient did not receive her beta justin last evening. She did receive her 150 mg of metoprolol this morning, according to the patient, the symptoms of chest discomfort lasted only a minute or 2 in duration. TSH remains low at 0.015 and Synthroid remains to be on hold. Blood pressure stable at 136/90. Objective - Vital Signs Vital signs: Vital Signs Temp 97.1 F L 09/04/17 11:33 Pulse 119 H 09/04/17 11:33 Resp 18 09/04/17 11:33 BP 137/97 09/04/17 11:33 Pulse Ox 94 L 09/04/17 11:33 Intake & Output 09/03/17 09/04/17 09/04/17 18:59 06:59 18:59 Intake Total 230 1170 480 Output Total 550 350 0 Balance -320 820 480 Weight 91.4 kg Intake: IV 10 Invasive Line 1 10 Oral 230 1160 480 Output: Urine 550 350 Stool 0 0 Other: Voiding Method Toilet Toilet # Voids 3 1 - Exam PHYSICAL EXAMINATION: GENERAL: 72-year-old female in no apparent distress at the time of my examination. HEENT: Head is atraumatic, normocephalic. Pupils equal, round. Sclera anicteric. Conjunctiva are clear. Mucous membranes of the mouth are moist. Neck is supple. There is no elevated jugular venous pressure.] bruit is heard. HEART EXAMINATION: Heart S1 and S2 irregularly irregular systolic murmur is heard CHEST EXAMINATION: Lungs are clear with fine wheezing heard. ABDOMEN: Soft, nontender. Bowel sounds are heard. No organomegaly noted. EXTREMITIES: 2+ peripheral pulses with no evidence of peripheral edema and no calf tenderness noted. NEUROLOGIC patient is awake, alert and oriented -3. . - Labs CBC & Chem 7: 09/03/17 06:01 09/03/17 06:01 Labs: Abnormal Lab Results - Last 24 Hours (Table) 09/03/17 Range/Units 06:01 TSH <0.015 L (0.465-4.680) mIU/L Assessment and Plan Plan: Assessment and plan #1 atrial fibrillation with rapid ventricular response, persistent , patient is on Xarelto for anticoagulation. Currently on IV Cardizem drip. #2 known history of coronary disease with prior RCA stenting #3 hypertension #4 History of hypothyroidism, TSH level 0.015 this admission, Synthroid placed on hold. #5 hyperlipidemia Plan Echocardiogram with Doppler study was performed which revealed an ejection fraction of 55-60%. Mild to moderate mitral regurgitation. We will continue metoprolol 150 in the morning and 100 in the evening. Continue Xarelto 20 mg daily. DNP note has been reviewed, I agree with a documented findings and plan of care. Patient was seen and examined.
[2017-09-04] MEDS: MULTIVITAMINS, THERA 1 EACH TAB PO SCH (15:21)
--- NOTE | 2017-09-04 17:26 | P.PN ---
Subjective Progress Note Date: 09/04/17 Progress note being dictated for Dr. Tanner. Interval history: This is a 72-year-old female admitted with atrial fibrillation with rapid ventricular rate, acute COPD exacerbation and multiple other medical issues. Telemetry reporting atrial fibrillation with fast ventricular rate -continues on Cardizem drip. Afebrile. Denies chest pain, palpitations. Denies lightheadedness dizziness or focal deficits. 09/04/2017 complains of midsternal chest pain radiating to bilateral shoulders, accompanied by shortness of breath, heart rates in the 120s. Beta justin dose increased. TSH remains low, free T4 within normal range. Objective - Vital Signs Vital signs: Vital Signs Temp 97.7 F 09/04/17 15:27 Pulse 118 H 09/04/17 15:42 Resp 18 09/04/17 15:27 BP 102/75 09/04/17 15:27 Pulse Ox 97 09/04/17 15:27 Intake & Output 09/03/17 09/04/17 09/04/17 18:59 06:59 18:59 Intake Total 230 1170 480 Output Total 550 350 0 Balance -320 820 480 Weight 91.4 kg Intake: IV 10 Invasive Line 1 10 Oral 230 1160 480 Output: Urine 550 350 Stool 0 0 Other: Voiding Method Toilet Toilet # Voids 3 1 - Exam PHYSICAL EXAM: VITAL SIGNS: As above GENERAL: Sitting up in chair, no acute distress HEENT: Conjunctivae normal. eyes normal. Oral mucosa moist NECK: No JVD. No thyroid enlargement. No LNs CARDIOVASCULAR: S1, S2 muffled. Tachycardic, systolic murmur RESPIRATION: Breath sounds diminished in the bases. Occasional fine expiratory wheeze ABDOMEN: Soft, nontender . No guarding. no masses palpable. Bowel sounds heard. LEGS: No edema. no swelling PSYCHIATRY: Alert and oriented -3, mood and affect normal. NERVOUS SYSTEM: Cranial N 2-12 grossly normal. Moves all 4 limbs. Diffuse weakness No focal deficits. - Labs CBC & Chem 7: 09/03/17 06:01 09/03/17 06:01 Labs: Abnormal Lab Results - Last 24 Hours (Table) 09/03/17 Range/Units 06:01 TSH <0.015 L (0.465-4.680) mIU/L Assessment and Plan Assessment: 1. Atrial fibrillation with RVR 2. Low TSH with normal free T3 and free T4, continue holding Synthroid. 3 acute exacerbation COPD 4. Leukocytosis, steroid-induced 5. Chest pain, Plan: Continue current medication regime ,monitoring and symptomatic treatment. Beta justin dose increased with antiarrhythmics as per cardiology. Anticoagulated on Xarelto.Maintain nebulized bronchodilators. Aggressive pulmonary toileting. Further recommendations to follow. The impression and plan of care has been dictated as directed. : I performed a history and examination of this patient, discussed the same with the dictator. I agree with the dictator's note ,documented as a scribe. Any additional findings or plans will be noted.
[2017-09-04] MEDS: RIVAROXABAN 20 MG TAB PO SCH (17:43)
[2017-09-04] MEDS: MAGNESIUM OXIDE 400 MG TAB PO SCH (20:02)
[2017-09-04] MEDS: ATORVASTATIN 40 MG TAB PO SCH (20:03)
[2017-09-05] MEDS: METOPROLOL TARTRATE 50 MG TAB PO SCH ×2 (05:04→18:34)
[2017-09-05] MEDS: BUDESONIDE 0.5 MG/2 ML NEBU INHALATION SCH ×2 (07:45→19:22)
[2017-09-05] MEDS: IPRATROPIUM-ALBUTEROL 3 ML NEB INHALATION SCH ×4 (07:45→19:22)
[2017-09-05] MEDS ORDERED: ALPRAZolam 0.5 MG TAB PO PRN (08:41)
[2017-09-05] MEDS ORDERED: SODIUM CHLORIDE 0.9% 1,000 ML in EMPTY BAG 1 BAG IV ONE (08:41)
[2017-09-05] MEDS ORDERED: ALPRAZolam 0.25 MG TAB PO PRN (08:41)
[2017-09-05] MEDS ORDERED: ASPIRIN 325 MG TAB PO STA (08:41)
[2017-09-05] MEDS ORDERED: NITROGLYCERIN SL TABS 0.4 MG TAB SUBLINGUAL PRN (08:41)
[2017-09-05] MEDS: CYANOCOBALAMIN 500 MCG TAB PO SCH (08:42)
[2017-09-05] MEDS: guaiFENesin 600 MG TABLET.ER PO SCH ×2 (08:42→19:57)
[2017-09-05] MEDS: MULTIVITAMINS, THERA 1 EACH TAB PO SCH (08:42)
[2017-09-05] MEDS: FUROSEMIDE 20 MG TAB PO SCH (08:42)
[2017-09-05] MEDS: ASPIRIN 81 MG PO SCH (08:42)
[2017-09-05] MEDS: DOCUSATE 100 MG CAP PO SCH ×2 (08:42→19:59)
[2017-09-05] MEDS: VIT A,C & E-LUTEIN-MINERALS 1 EACH TAB PO SCH ×2 (08:42→19:58)
[2017-09-05] MEDS: CHOLECALCIFEROL 1,000 UNIT TAB PO SCH (08:42)
[2017-09-05] MEDS ORDERED: ATORVASTATIN 80 MG TAB PO STA (08:43)
--- NOTE | 2017-09-05 11:19 | P.PN ---
Subjective Progress Note Date: 09/05/17 This is a pleasant 72-year-old female who follows with Dr. Flynn in the office, she has known history of coronary artery disease and prior stent placement of the right coronary artery, hypertension, hyperlipidemia, asthma, COPD, hypothyroidism, paroxysmal atrial fibrillation. She presented to the hospital on this occasion with symptoms of palpitations. According to the patient she has recently seen Dr. Elizabeth in the office, she decreased her dose of Synthroid because her TSH level was significantly low. She had been taking 75 g this was decreased to 50. Results to the hospital on this occasion with symptoms of palpitations and feeling her heart racing fast. Patient also states she had some chest discomfort with radiation to her shoulders and was mildly short of breath. States she was wheezing quite a bit on presentation here. Her EKG on presentation here showed atrial fibrillation with a rapid ventricular response. Chest x-ray shows pulmonary fibrosis, no heart failure, clearing of a mild infiltrate. Blood pressure 110/60, heart rate in the 120s, 95% on 2 L. CBC is normal, sodium 139, potassium 5.0, BUN 23, creatinine 0.8. Troponin 0.012, 0.027. TSH level 0.015 free T4 1 0.8 and free T3 4 0.5. Synthroid has currently been placed on hold. Time of my examination this morning, patient is feeling significantly better than her presentation here. She still states that she can feel palpitations, breathing is improved. 09/03/2017 Patient was seen and examined this morning she continues to be in atrial fibrillation with a heart rate in the 1 teens. Patient also complains of some mild swelling in her lower extremities today, for which she states she takes a when necessary dose of Lasix at home. Blood pressure 116/70. White blood cell count 7.9, hemoglobin 10.9, platelet count 190. Sodium 138, potassium 4.7, BUN 29, creatinine 0.9. 09/04/2017 Patient seen and examined this morning, had an episode of chest pain earlier, her heart rate at that time was noted to be up in the 130 range. Patient did not receive her beta justin last evening. She did receive her 150 mg of metoprolol this morning, according to the patient, the symptoms of chest discomfort lasted only a minute or 2 in duration. TSH remains low at 0.015 and Synthroid remains to be on hold. Blood pressure stable at 136/90. 09/05/2017 Patient seen and examined this morning, denies any chest discomfort, she does state that she feels more short of breath in which she did yesterday. She continues to be in atrial fibrillation, heart rate in the 1 teens [address] Currie did have a discussion with the patient regarding her persistent symptoms, and recommended undergoing cardiac catheterization, the risks and the benefits explained to the patient in detail and she is willing to proceed. Hemoglobin today is 10.9, platelet count 190, sodium 138, potassium 4.7, BUN 29 , creatinine 0.9. These labs were from the , we will obtain new lytes BUN and creatinine today. We will also repeat a chest x-ray today. Objective - Vital Signs Vital signs: Vital Signs Temp 97.2 F L 09/05/17 08:00 Pulse 124 H 09/05/17 11:05 Resp 18 09/05/17 11:05 BP 126/60 09/05/17 08:00 Pulse Ox 97 09/05/17 08:00 Intake & Output 09/04/17 09/05/17 09/05/17 18:59 06:59 18:59 Intake Total 720 480 240 Output Total 0 Balance 720 480 240 Weight 90.4 kg Intake: Oral 720 480 240 Output: Stool 0 Other: Voiding Method Toilet Toilet # Voids 1 2 - Exam PHYSICAL EXAMINATION: GENERAL: 72-year-old female in no apparent distress at the time of my examination. HEENT: Head is atraumatic, normocephalic. Pupils equal, round. Sclera anicteric. Conjunctiva are clear. Mucous membranes of the mouth are moist. Neck is supple. There is no elevated jugular venous pressure.] bruit is heard. HEART EXAMINATION: Heart S1 and S2 irregularly irregular systolic murmur is heard CHEST EXAMINATION: Lungs are clear with basilar crackles and expiratory wheezing heard. ABDOMEN: Soft, nontender. Bowel sounds are heard. No organomegaly noted. EXTREMITIES: 2+ peripheral pulses with no evidence of peripheral edema and no calf tenderness noted. NEUROLOGIC patient is awake, alert and oriented -3. . - Labs CBC & Chem 7: 09/03/17 06:01 09/03/17 06:01 Assessment and Plan Plan: Assessment and plan #1 atrial fibrillation with rapid ventricular response, persistent , patient is on Xarelto for anticoagulation. #2 known history of coronary disease with prior RCA stenting #3 hypertension #4 History of hypothyroidism, TSH level 0.015 this admission, Synthroid placed on hold. #5 hyperlipidemia Plan Echocardiogram with Doppler study was performed which revealed an ejection fraction of 55-60%. Mild to moderate mitral regurgitation. We will repeat a chest x-ray today. Patient has also been advised to undergo cardiac catheterization, the risks and benefits were explained to the patient in detail and she is willing to proceed. We will add Cardizem 30 mg one tablet by mouth 3 times a day to the medication regime for more optimal heart rate control. DNP note has been reviewed, I agree with a documented findings and plan of care. Patient was seen and examined.
--- NOTE | 2017-09-05 13:41 | XR ---
EXAMINATION TYPE: XR chest 2V DATE OF EXAM: 09/05/2017 COMPARISON: NONE HISTORY: Shortness of breath TECHNIQUE: Frontal and lateral views of the chest are obtained. FINDINGS: Scattered senescent parenchymal changes noted. Hyperinflation compatible with COPD. Persistent patchy density left lower lobe may reflect underlying pneumonia and/or atelectasis. Heart size is stable. Prominence of the central pulmonary vasculature may reflect underlying pulmonar y arterial hypertension. Mediastinal structures are stable and grossly unremarkable. No evidence for hilar prominence. Degenerative changes dorsal spine. IMPRESSION: 1. Persistent patchy density left lower lobe may reflect underlying pneumonia and/or atelectasis.
[2017-09-05] MEDS ORDERED: DILTIAZEM ORAL 30 MG TAB PO STA (15:31)
[2017-09-05] MEDS: DILTIAZEM ORAL 30 MG TAB PO SCH ×4 (15:31→23:42)
--- NOTE | 2017-09-05 17:03 | P.PN ---
Subjective Progress Note Date: 09/05/17 Progress note being dictated for Dr. Tanner. Interval history: This is a 72-year-old female admitted with atrial fibrillation with rapid ventricular rate, acute COPD exacerbation and multiple other medical issues. Telemetry reporting atrial fibrillation with fast ventricular rate -continues on Cardizem drip. Afebrile. Denies chest pain, palpitations. Denies lightheadedness dizziness or focal deficits. 09/04/2017 complains of midsternal chest pain radiating to bilateral shoulders, accompanied by shortness of breath, heart rates in the 120s. Beta justin dose increased. TSH remains low, free T4 within normal range. 09/05/2017 telemetry reporting atrial fibrillation currently in the 120s; weight had been up into the 150s during the night. Scheduled for cardiac catheterization tomorrow. No further chest pain episodes. Denies palpitations. Chest x-ray reporting persistent patchy left lower lobe density. Afebrile. Objective - Vital Signs Vital signs: Vital Signs Temp 97.1 F L 09/05/17 15:42 Pulse 110 H 09/05/17 16:34 Resp 18 09/05/17 15:42 BP 107/72 09/05/17 15:42 Pulse Ox 97 09/05/17 15:42 Intake & Output 09/04/17 09/05/17 09/05/17 18:59 06:59 18:59 Intake Total 720 480 240 Output Total 0 Balance 720 480 240 Weight 90.4 kg Intake: Oral 720 480 240 Output: Stool 0 Other: Voiding Method Toilet Toilet # Voids 1 2 1 # Bowel Movements 0 - Exam PHYSICAL EXAM: VITAL SIGNS: As above GENERAL: Sitting up in chair, no acute distress HEENT: Conjunctivae normal. eyes normal. Oral mucosa moist NECK: No JVD. No thyroid enlargement. No LNs CARDIOVASCULAR: S1, S2 muffled. Tachycardic, systolic murmur RESPIRATION: Breath sounds diminished in the bases. Occasional fine expiratory wheeze ABDOMEN: Soft, nontender . No guarding. no masses palpable. Bowel sounds heard. LEGS: No edema. no swelling PSYCHIATRY: Alert and oriented -3, mood and affect normal. NERVOUS SYSTEM: Cranial N 2-12 grossly normal. Moves all 4 limbs. Diffuse weakness No focal deficits. - Labs CBC & Chem 7: 09/03/17 06:01 09/03/17 06:01 Assessment and Plan Assessment: 1. Atrial fibrillation with RVR 2. Low TSH with normal free T3 and free T4, continue holding Synthroid. 3 acute exacerbation COPD 4. Leukocytosis, steroid-induced 5. Chest pain, Plan: Continue current medication regime ,monitoring and symptomatic treatment. Maintain nebulized bronchodilators. Aggressive pulmonary toileting. Scheduled for cardiac catheterization tomorrow. Follow closely with cardiology. Close monitoring of electrolytes, renal function with repeat labs ordered for a.m. Further recommendations to follow. The impression and plan of care has been dictated as directed. : I performed a history and examination of this patient, discussed the same with the dictator. I agree with the dictator's note ,documented as a scribe. Any additional findings or plans will be noted.
[2017-09-05] MEDS ORDERED: IPRATROPIUM-ALBUTEROL 3 ML NEB INHALATION PRN (17:04)
--- NOTE | 2017-09-05 18:16 | P.PN ---
Subjective Progress Note Date: 09/05/17 Principal diagnosis: Acute COPD exacerbation, pulmonary fibrosis, atrial fibrillation with rapid ventricular response, acute on chronic diastolic heart failure with component of chronic systolic heart failure, severe COPD, chronic persistent asthma, coronary artery disease with history of stent placement in RCA, dyslipidemia, hypertension hypertensive cardiovascular disease 09/05/2017, patient seen and examined during the rounds continue to be in A. fib with intermittent rapid ventricular response, patient is scheduled for cardiac cath angiogram chest x-ray performed today reviewed and compared with the prior x-ray bilateral small pleural effusion cannot be excluded with some subsegmental atelectasis at the left base along with cardiomegaly 09/04/2017, patient seen eval examined during the rounds clinically doing well especially at rest however had another episode of atrial fibrillation with rapid ventricular response, cardiovascular services been following and adjusting the medications, patient continued to deny any sputum production wheezing shortness of breath is being treated with bronchodilator she is being monitor observe off of his steroids, I had another discussion with her about importance of sleep disorder breathing and sleep apnea evaluation patient continued to decline for now we'll continue to treat asthma as a chronic stable persistent asthma and optimize therapy for A. fib and heart failure associated 09/03/2017, patient seen eval examined during the rounds clinically patient doing well in terms of breathing but still have intermittent episodes of atrial fibrillation with rapid ventricular response during that process patient developed shortness of breath however denies any cough or sputum production denies any chest pain at rest, 09/02/2017, patient seen eval examined during the rounds clinically patient has been doing well still and rapid ventricular response but however severity has improved the rate is slightly better hemodynamic status stable, patient's Synthroid dose is being adjusted as well, she does have a history of snoring off and on I've advised her for a polysomnogram patient wants to think about it. Medications reviewed him a white cell count is down to 8000 patient is being monitored off of his steroids and antibiotics on the on bronchodilator 09/01/2017 patient seen eval examined during the rounds clinically patient has been doing well, palpitation shortness of breath and fever better under control being eval by cardiovascular services as well, patient thyroid dosage is being adjusted appears to have component of iatrogenic hyperthyroidism Miss Harmony Arias a 72-year-old female with history of chronic atrial fibrillation, patient has severe COPD emphysema as well as well as history of chronic persistent asthma 2 days prior to presenting into the hospital yesterday started having palpitations increasing shortness of breath with those problem patient is mental the emergency department where she was seen evaluated examined she was found to be in atrial fibrillation she has been on anticoagulation all along to rapid A. fib And has been admitted into the hospital she on specific questioning he denies any cough or sputum production denies any night sweats or fever or chills denies any seizure-like to a loss of consciousness or hemiparesis denies any bowel or bladder related dysfunction Objective - Vital Signs Vital signs: Vital Signs Temp 97.1 F L 09/05/17 15:42 Pulse 110 H 09/05/17 16:34 Resp 18 09/05/17 15:42 BP 107/72 09/05/17 15:42 Pulse Ox 97 09/05/17 15:42 Intake & Output 09/04/17 09/05/17 09/05/17 18:59 06:59 18:59 Intake Total 720 480 480 Output Total 0 Balance 720 480 480 Weight 90.4 kg Intake: Oral 720 480 480 Output: Stool 0 Other: Voiding Method Toilet Toilet # Voids 1 2 1 # Bowel Movements 0 - Exam EYES: Pupils are round and reactive. Extraocular movements are intact. No conjunctival / lid redness or swelling. ENT: No external evidence of injury, swelling, or ecchymosis. Airway is patent. Throat is clear. NECK: Nontender. No swelling or evidence of injury. No subcutaneous emphysema. Trachea is midline. No thyroid mass. HEART: There is a tachycardic irregular rhythm. Good peripheral pulses. LUNGS/CHEST: Breath sounds clear and equal bilaterally. No rales, rhonchi, or wheezes. No ecchymosis, subcutaneous emphysema, or tenderness. ABDOMEN: Abdomen soft without tenderness. No palpable masses or organomegaly. No peritoneal signs. No abdominal wall swelling or ecchymosis. EXTREMITIES: No extremity tenderness. Normal muscle tone and function. No thoracolumbar tenderness. NEUROLOGIC: Sensation is grossly intact. Cranial nerve exam reveals face is symmetrical, tongue is midline, speech is clear. SKIN: No abrasions or ecchymosis is noted. No induration or masses noted. PSYCHIATRIC: Alert and oriented. Appropriate behavior and judgment. - Labs CBC & Chem 7: 09/03/17 06:09/03/17 06:01 Assessment and Plan Assessment: Atrial fibrillation with rapid ventricular response Iatrogenic hyperthyroidism very low TSH, Synthroid dose is being readjusted Acute onset of shortness of breath is related to above Acute diastolic heart failure however ongoing chronic systolic colic failure cannot be excluded Likely severe pulmonary hypertension multifactorial awaiting echocardiogram results and reports Chronic persistent asthma mild to moderate category by history COPD moderate grade on bronchodilators as needed at home in the form of nebulizer Coronary artery disease and history of stent placement in RCA Hypertension hypertensive cardiovascular disease Dyslipidemia Sleep disorder breathing and sleep apnea Plan: Polysomnogram as outpatient if patient agreeable Cardiac cath and angiogram as per primary cardiovascular services Continue gentle diuresis Optimize medical therapy Deep breathing exercises incentive spirometry Follow echocardiogram reviewed, ejection fraction is 55%, mild elevated PA pressure noted, LA severely dilated over 40 mL/m2 Continue bronchodilators We'll hold on steroids or antibiotics at this point time Further recommendations pending plan of care as per clinical response of the patient agree with discharge planning with follow-up in outpatient setting Time with Patient: Greater than 30
[2017-09-05] MEDS: ATORVASTATIN 40 MG TAB PO SCH (19:58)
[2017-09-05] MEDS: MAGNESIUM OXIDE 400 MG TAB PO SCH (19:58)
[2017-09-06 08:19] LABS: Calcium 8.6 mg/dL (8.4-10.2); Potassium 4.6 mmol/L (3.5-5.1)
[2017-09-06 08:45] LABS: Basophils # (A) 0.1 k/uL (0-0.2); Basophils % (A) 1 %; Eosinophils # (A) 0.3 k/uL (0-0.7); Eosinophils % (A) 4 %; HCT 34.7 % (34.0-46.0); HGB 10.9 gm/dL (11.4-16.0); Hypochromasia Slight; Lymphocytes # (A) 2.2 k/uL (1.0-4.8); Lymphocytes % (A) 25 %; MCH 26.4 pg (25.0-35.0); MCHC 31.4 g/dL (31.0-37.0); MCV 84.3 fL (80.0-100.0); Mean Platelet Volume 7.9; Monocytes # (A) 0.6 k/uL (0-1.0); Monocytes % (A) 7 %; Neutrophils # (A) 5.5 k/uL (1.3-7.7); Neutrophils % (A) 61 %; Platelet Count 209 k/uL (150-450); RBC 4.12 m/uL (3.80-5.40); RDW 15.2 % (11.5-15.5); WBC 8.9 k/uL (3.8-10.6)
[2017-09-06] MEDS ORDERED: ATORVASTATIN 80 MG TAB ONE (09:07)
[2017-09-06] MEDS ORDERED: IV FLUID CONTINUATION 900 ML IV ONE (09:30)
[2017-09-06] MEDS ORDERED: fentaNYL (PF) 50 MCG/ML 2 ML AMP ONE (09:40)
[2017-09-06] MEDS ORDERED: fentaNYL (PF) 50 MCG/ML 2 ML AMP IV ONE (09:40)
[2017-09-06] MEDS ORDERED: LIDOCAINE 2% SYG (PF) 100 MG/5 ML MISCELLANE ONE (09:46)
[2017-09-06] MEDS ORDERED: IOPAMIDOL-370 125ML BTL INJ ONE (10:00)
[2017-09-06] MEDS: guaiFENesin 600 MG TABLET.ER PO SCH ×2 (10:42→21:30)
[2017-09-06] MEDS: MULTIVITAMINS, THERA 1 EACH TAB PO SCH (10:42)
[2017-09-06] MEDS: VIT A,C & E-LUTEIN-MINERALS 1 EACH TAB PO SCH ×2 (10:42→21:30)
[2017-09-06] MEDS: DILTIAZEM ORAL 30 MG TAB PO SCH ×3 (10:42→22:30)
[2017-09-06] MEDS: ASPIRIN 81 MG PO SCH (10:43)
[2017-09-06] MEDS: DOCUSATE 100 MG CAP PO SCH (10:44)
[2017-09-06] MEDS: METOPROLOL TARTRATE 50 MG TAB PO SCH ×2 (10:44→17:45)
[2017-09-06] MEDS: FUROSEMIDE 20 MG TAB PO SCH (10:44)
[2017-09-06] MEDS: CHOLECALCIFEROL 1,000 UNIT TAB PO SCH (10:47)
[2017-09-06 10:56] VITALS: RESP 18
[2017-09-06 11:18] VITALS: BMI 40.2
[2017-09-06] MEDS: BUDESONIDE 0.5 MG/2 ML NEBU INHALATION SCH ×2 (11:31→19:50)
[2017-09-06] MEDS: IPRATROPIUM-ALBUTEROL 3 ML NEB INHALATION SCH ×4 (11:31→19:50)
[2017-09-06] MEDS: CYANOCOBALAMIN 500 MCG TAB PO SCH ×2 (12:34→21:30)
[2017-09-06] MEDS: ACETAMINOPHEN TAB 325 MG TAB PO PRN ×2 (12:35→20:40)
[2017-09-06] MEDS: AMIODARONE 200 MG TAB PO SCH ×2 (12:36→21:30)
--- NOTE | 2017-09-06 12:41 | CC ---
CARDIAC CATHETERIZATION REPORT INDICATION: Unstable angina. PROCEDURE NOTE: After obtaining informed consent, left heart catheterization and coronary angiogram are performed via the right femoral artery using standard Miguel A catheters. Patient tolerated the procedure well without any obvious immediate complications. A femoral angiogram was performed and decision was made for manual hemostasis. Patient received moderate conscious sedation and total sedation time was 17 minutes. FINDINGS: 1. HEMODYNAMICS: Left ventricular end-diastolic pressure is 18 mm. There is no significant gradient across aortic valve. 2. LEFT VENTRICULOGRAM: Left ventriculogram is not performed. 3. ANGIOGRAPHIC DATA: 4. LEFT MAIN CORONARY ARTERY: Left main coronary artery is a normal-sized vessel and is free of stenosis. Divides into left anterior descending coronary artery and circumflex coronary artery. LAD and its branches are free of significant stenosis. The ramus intermedius is free of significant disease. Circumflex coronary artery shows a mild atherosclerotic plaque very distally. RIGHT CORONARY ARTERY: The previously stented segment in the proximal right coronary artery is patent. CONCLUSION: 1. Patent stent within the right coronary artery. 2. Mild nonobstructive disease involving circumflex coronary artery and left anterior descending artery. PLAN: Patient will be treated with continued and optimal medical therapy. Resume the anticoagulation, control the heart rate better with beta blockers, calcium channel blockers. I am also going to add amiodarone today as she continues to be tachycardiac and I really do not have any further margin with blood pressure to give calcium channel blockers. Hopefully, I can discharge her home tomorrow. MMODL / IJN: [id number] /
--- NOTE | 2017-09-06 13:41 | P.PN ---
Subjective Progress Note Date: 09/06/17 Principal diagnosis: Acute COPD exacerbation, pulmonary fibrosis, atrial fibrillation with rapid ventricular response, acute on chronic diastolic heart failure with component of chronic systolic heart failure, severe COPD, chronic persistent asthma, coronary artery disease with history of stent placement in RCA, dyslipidemia, hypertension hypertensive cardiovascular disease 09/06/2017, patient seen eval examined during the rounds clinically patient is not much change from baseline is still have intermittent episode of shortness of breath patient just received a breathing treatment with the severity or shortness breath is improved, on the other hand continued to have intermittent episodes of atrial fibrillation with rapid ventricular response Cardio Vascular service following patient is being planned for cardiac cath angiogram today, care plan reviewed and discussed with the patient and family present at bedside 09/05/2017, patient seen and examined during the rounds continue to be in A. fib with intermittent rapid ventricular response, patient is scheduled for cardiac cath angiogram chest x-ray performed today reviewed and compared with the prior x-ray bilateral small pleural effusion cannot be excluded with some subsegmental atelectasis at the left base along with cardiomegaly 09/04/2017, patient seen eval examined during the rounds clinically doing well especially at rest however had another episode of atrial fibrillation with rapid ventricular response, cardiovascular services been following and adjusting the medications, patient continued to deny any sputum production wheezing shortness of breath is being treated with bronchodilator she is being monitor observe off of his steroids, I had another discussion with her about importance of sleep disorder breathing and sleep apnea evaluation patient continued to decline for now we'll continue to treat asthma as a chronic stable persistent asthma and optimize therapy for A. fib and heart failure associated 09/03/2017, patient seen eval examined during the rounds clinically patient doing well in terms of breathing but still have intermittent episodes of atrial fibrillation with rapid ventricular response during that process patient developed shortness of breath however denies any cough or sputum production denies any chest pain at rest, 09/02/2017, patient seen eval examined during the rounds clinically patient has been doing well still and rapid ventricular response but however severity has improved the rate is slightly better hemodynamic status stable, patient's Synthroid dose is being adjusted as well, she does have a history of snoring off and on I've advised her for a polysomnogram patient wants to think about it. Medications reviewed him a white cell count is down to 8000 patient is being monitored off of his steroids and antibiotics on the on bronchodilator 09/01/2017 patient seen eval examined during the rounds clinically patient has been doing well, palpitation shortness of breath and fever better under control being eval by cardiovascular services as well, patient thyroid dosage is being adjusted appears to have component of iatrogenic hyperthyroidism Miss Harmony Arias a 72-year-old female with history of chronic atrial fibrillation, patient has severe COPD emphysema as well as well as history of chronic persistent asthma 2 days prior to presenting into the hospital yesterday started having palpitations increasing shortness of breath with those problem patient is mental the emergency department where she was seen evaluated examined she was found to be in atrial fibrillation she has been on anticoagulation all along to rapid A. fib And has been admitted into the hospital she on specific questioning he denies any cough or sputum production denies any night sweats or fever or chills denies any seizure-like to a loss of consciousness or hemiparesis denies any bowel or bladder related dysfunction Objective - Vital Signs Vital signs: Vital Signs Temp 97.6 F 09/06/17 11:04 Pulse 109 H 09/06/17 12:14 Resp 18 09/06/17 11:04 BP 98/73 09/06/17 11:04 Pulse Ox 94 L 09/06/17 11:04 Intake & Output 09/05/17 09/06/17 09/06/17 18:59 06:59 18:59 Intake Total 480 540 100 Balance 480 540 100 Weight 90.4 kg Intake: IV 540 100 0.9 540 Oral 480 Other: Voiding Method Toilet # Voids 1 2 # Bowel Movements 0 0 - Exam EYES: Pupils are round and reactive. Extraocular movements are intact. No conjunctival / lid redness or swelling. ENT: No external evidence of injury, swelling, or ecchymosis. Airway is patent. Throat is clear. NECK: Nontender. No swelling or evidence of injury. No subcutaneous emphysema. Trachea is midline. No thyroid mass. HEART: There is a tachycardic irregular rhythm. Good peripheral pulses. LUNGS/CHEST: Breath sounds clear and equal bilaterally. No rales, rhonchi, or wheezes. No ecchymosis, subcutaneous emphysema, or tenderness. ABDOMEN: Abdomen soft without tenderness. No palpable masses or organomegaly. No peritoneal signs. No abdominal wall swelling or ecchymosis. EXTREMITIES: No extremity tenderness. Normal muscle tone and function. No thoracolumbar tenderness. NEUROLOGIC: Sensation is grossly intact. Cranial nerve exam reveals face is symmetrical, tongue is midline, speech is clear. SKIN: No abrasions or ecchymosis is noted. No induration or masses noted. PSYCHIATRIC: Alert and oriented. Appropriate behavior and judgment. - Labs CBC & Chem 7: 09/06/17 05:28 09/03/17 06:01 Labs: Abnormal Lab Results - Last 24 Hours (Table) 09/06/17 Range/Units 05:28 Hgb 10.9 L (11.4-16.0) gm/dL Assessment and Plan Assessment: Atrial fibrillation with rapid ventricular response Coronary artery disease with history of the stent placement in RCA Iatrogenic hyperthyroidism very low TSH, Synthroid dose is being readjusted Acute onset of shortness of breath is related to above Acute diastolic heart failure however ongoing chronic systolic colic failure cannot be excluded Likely severe pulmonary hypertension multifactorial awaiting echocardiogram results and reports Chronic persistent asthma mild to moderate category by history COPD moderate grade on bronchodilators as needed at home in the form of nebulizer Hypertension hypertensive cardiovascular disease Dyslipidemia Sleep disorder breathing and sleep apnea Plan: Polysomnogram as outpatient if patient agreeable Cardiac cath and angiogram as per primary cardiovascular services, medication adjustment as tolerated Continue gentle diuresis Optimize medical therapy Deep breathing exercises incentive spirometry Follow echocardiogram reviewed, ejection fraction is 55%, mild elevated PA pressure noted, LA severely dilated over 40 mL/m2 Continue bronchodilators We'll hold on steroids or antibiotics at this point time Further recommendations pending plan of care as per clinical response of the patient agree with discharge planning with follow-up in outpatient setting Time with Patient: Greater than 30
--- NOTE | 2017-09-06 19:28 | P.PN ---
Subjective Progress Note Date: 09/06/17 Progress note being dictated for Dr. Tanner. Interval history: This is a 72-year-old female admitted with atrial fibrillation with rapid ventricular rate, acute COPD exacerbation and multiple other medical issues. Telemetry reporting atrial fibrillation with fast ventricular rate -continues on Cardizem drip. Afebrile. Denies chest pain, palpitations. Denies lightheadedness dizziness or focal deficits. 09/04/2017 complains of midsternal chest pain radiating to bilateral shoulders, accompanied by shortness of breath, heart rates in the 120s. Beta justin dose increased. TSH remains low, free T4 within normal range. 09/05/2017 telemetry reporting atrial fibrillation currently in the 120s; weight had been up into the 150s during the night. Scheduled for cardiac catheterization tomorrow. No further chest pain episodes. Denies palpitations. Chest x-ray reporting persistent patchy left lower lobe density. Afebrile. 09/06/17 underwent cardiac catheterization, reporting patent RCA stent, mild non- obstructive disease of circumflex and left anterior descending. Tolerated procedure well. Optimizing medical therapy recommended with Amiodarone added to med regime.Telemetry atrial fibrillation with heart rates ranging in the low 100s. Objective - Vital Signs Vital signs: Vital Signs Temp 96.9 F L 09/06/17 16:00 Pulse 125 H 09/06/17 16:00 Resp 18 09/06/17 16:00 BP 114/70 09/06/17 16:00 Pulse Ox 94 L 09/06/17 16:00 Intake & Output 09/06/17 09/06/17 09/07/17 06:59 18:59 06:59 Intake Total 540 340 Balance 540 340 Weight 90.4 kg Intake: IV 540 100 0.9 540 Oral 240 Other: Voiding Method Toilet # Voids 2 # Bowel Movements 0 - Exam PHYSICAL EXAM: VITAL SIGNS: As above GENERAL: Lying in bed,, no acute distress HEENT: Conjunctivae normal. eyes normal. Oral mucosa moist NECK: No JVD. No thyroid enlargement. No LNs CARDIOVASCULAR: S1, S2 muffled. Tachycardic, systolic murmur RESPIRATION: Breath sounds diminished in the bases. ABDOMEN: Soft, nontender . No guarding. no masses palpable. Bowel sounds heard. LEGS: No edema. no swelling PSYCHIATRY: Alert and oriented -3, mood and affect normal. NERVOUS SYSTEM: Cranial N 2-12 grossly normal. Moves all 4 limbs. Diffuse weakness No focal deficits. - Labs CBC & Chem 7: 09/06/17 05:28 09/06/17 05:28 Labs: Abnormal Lab Results - Last 24 Hours (Table) 09/06/17 09/06/17 Range/Units 05:28 05:28 Hgb 10.9 L (11.4-16.0) gm/dL BUN 25 H (7-17) mg/dL Assessment and Plan Assessment: 1. Atrial fibrillation with RVR 2. Low TSH with normal free T3 and free T4, continue holding Synthroid. 3 acute exacerbation COPD 4. Leukocytosis, steroid-induced 5. Chest pain, status post cardiac catheterization reporting patent RCA stent, mild nonobstructive disease of circumflex and LAD Plan: Continue current medication regime ,monitoring and symptomatic treatment. Maximizing medical therapy, status post catheterization .Maintain nebulized bronchodilators. Aggressive pulmonary toileting. Close monitoring of electrolytes, renal function with repeat labs ordered for a.m. discharge planning in progress for tomorrow pending cardiology clearance. The impression and plan of care has been dictated as directed. : I performed a history and examination of this patient, discussed the same with the dictator. I agree with the dictator's note ,documented as a scribe. Any additional findings or plans will be noted.
[2017-09-06] MEDS: ATORVASTATIN 40 MG TAB PO SCH (21:30)
[2017-09-06] MEDS: MAGNESIUM OXIDE 400 MG TAB PO SCH (21:30)
[2017-09-07] MEDS: DOCUSATE 100 MG CAP PO SCH ×2 (04:55→08:45)
[2017-09-07 05:56] LABS: Basophils % (A) 0 %; Eosinophils # (A) 0.3 k/uL (0-0.7); Eosinophils % (A) 4 %; HCT 35.3 % (34.0-46.0); HGB 11.2 gm/dL (11.4-16.0); Hypochromasia Slight; Lymphocytes # (A) 2.3 k/uL (1.0-4.8); Lymphocytes % (A) 26 %; MCH 26.5 pg (25.0-35.0); MCHC 31.9 g/dL (31.0-37.0); MCV 83.1 fL (80.0-100.0); Mean Platelet Volume 7.1; Monocytes # (A) 0.5 k/uL (0-1.0); Monocytes % (A) 6 %; Neutrophils # (A) 5.5 k/uL (1.3-7.7); Neutrophils % (A) 63 %; Platelet Count 206 k/uL (150-450); RBC 4.25 m/uL (3.80-5.40); RDW 15.4 % (11.5-15.5); WBC 8.8 k/uL (3.8-10.6)
[2017-09-07 06:19] LABS: Calcium 9.1 mg/dL (8.4-10.2); Potassium 4.6 mmol/L (3.5-5.1)
[2017-09-07] MEDS: IPRATROPIUM-ALBUTEROL 3 ML NEB INHALATION SCH ×2 (08:28→11:58)
[2017-09-07] MEDS: BUDESONIDE 0.5 MG/2 ML NEBU INHALATION SCH (08:28)
[2017-09-07] MEDS: METOPROLOL TARTRATE 50 MG TAB PO SCH (08:41)
[2017-09-07] MEDS: FUROSEMIDE 20 MG TAB PO SCH (08:41)
[2017-09-07] MEDS: MULTIVITAMINS, THERA 1 EACH TAB PO SCH (08:41)
[2017-09-07] MEDS: CHOLECALCIFEROL 1,000 UNIT TAB PO SCH (08:41)
[2017-09-07] MEDS: AMIODARONE 200 MG TAB PO SCH (08:41)
[2017-09-07] MEDS: guaiFENesin 600 MG TABLET.ER PO SCH (08:41)
[2017-09-07] MEDS: DILTIAZEM ORAL 30 MG TAB PO SCH (08:41)
[2017-09-07] MEDS: ASPIRIN 81 MG PO SCH (08:41)
[2017-09-07] MEDS: VIT A,C & E-LUTEIN-MINERALS 1 EACH TAB PO SCH (08:41)
[2017-09-07 12:04] VITALS: BP 98/67; TEMP 97.4
[2017-09-07 12:09] VITALS: PULSE 118
--- NOTE | 2017-09-07 12:09 | P.PN ---
Subjective Progress Note Date: 09/07/17 This is a pleasant 72-year-old female who follows with Dr. Flynn in the office, she has known history of coronary artery disease and prior stent placement of the right coronary artery, hypertension, hyperlipidemia, asthma, COPD, hypothyroidism, paroxysmal atrial fibrillation. She presented to the hospital on this occasion with symptoms of palpitations. According to the patient she has recently seen Dr. Elizabeth in the office, she decreased her dose of Synthroid because her TSH level was significantly low. She had been taking 75 g this was decreased to 50. Results to the hospital on this occasion with symptoms of palpitations and feeling her heart racing fast. Patient also states she had some chest discomfort with radiation to her shoulders and was mildly short of breath. States she was wheezing quite a bit on presentation here. Her EKG on presentation here showed atrial fibrillation with a rapid ventricular response. Chest x-ray shows pulmonary fibrosis, no heart failure, clearing of a mild infiltrate. Blood pressure 110/60, heart rate in the 120s, 95% on 2 L. CBC is normal, sodium 139, potassium 5.0, BUN 23, creatinine 0.8. Troponin 0.012, 0.027. TSH level 0.015 free T4 1 0.8 and free T3 4 0.5. Synthroid has currently been placed on hold. Time of my examination this morning, patient is feeling significantly better than her presentation here. She still states that she can feel palpitations, breathing is improved. 09/03/2017 Patient was seen and examined this morning she continues to be in atrial fibrillation with a heart rate in the 1 teens. Patient also complains of some mild swelling in her lower extremities today, for which she states she takes a when necessary dose of Lasix at home. Blood pressure 116/70. White blood cell count 7.9, hemoglobin 10.9, platelet count 190. Sodium 138, potassium 4.7, BUN 29, creatinine 0.9. 09/04/2017 Patient seen and examined this morning, had an episode of chest pain earlier, her heart rate at that time was noted to be up in the 130 range. Patient did not receive her beta justin last evening. She did receive her 150 mg of metoprolol this morning, according to the patient, the symptoms of chest discomfort lasted only a minute or 2 in duration. TSH remains low at 0.015 and Synthroid remains to be on hold. Blood pressure stable at 136/90. 09/05/2017 Patient seen and examined this morning, denies any chest discomfort, she does state that she feels more short of breath in which she did yesterday. She continues to be in atrial fibrillation, heart rate in the 1 teens to [address] Currie did have a discussion with the patient regarding her persistent symptoms, and recommended undergoing cardiac catheterization, the risks and the benefits explained to the patient in detail and she is willing to proceed. Hemoglobin today is 10.9, platelet count 190, sodium 138, potassium 4.7, BUN 29 , creatinine 0.9. These labs were from the , we will obtain new lytes BUN and creatinine today. We will also repeat a chest x-ray today. 09/07/2017 Patient underwent a cardiac catheterization yesterday by Dr. Currie which revealed patent stent within the right coronary artery. Mild nonobstructive disease involving the circumflex and LAD. The pressure 98/60 with a heart rate in the 90s to low 1 teens, 92% on room air. Patient was seen and examined this morning, she feels well, denies any shortness of breath, no chest discomfort, no dizziness or lightheadedness. She is currently on amiodarone 400 mg one tablet by mouth twice a day which we will continue for 3 days, then this will be decreased to 200 mg by mouth twice a day. We will also continue aspirin 81 mg daily, Lipitor 40 mg daily, Cardizem 30 mg 3 times a day, metoprolol 150 mg in the morning and 100 mg in the evening. Objective - Vital Signs Vital signs: Vital Signs Temp 97.0 F L 09/07/17 08:00 Pulse 93 09/07/17 08:42 Resp 18 09/07/17 08:00 BP 127/86 09/07/17 08:00 Pulse Ox 94 L 09/07/17 08:29 Intake & Output 09/06/17 09/07/17 09/07/17 18:59 06:59 18:59 Intake Total 340 240 Output Total 350 Balance 340 -350 240 Weight 90.4 kg 91.5 kg Intake: IV 100 0 0.9 0 Oral 240 240 Output: Urine 350 Stool 0 Other: Voiding Method Toilet # Voids 1 - Exam PHYSICAL EXAMINATION: GENERAL: 72-year-old female in no apparent distress at the time of my examination. HEENT: Head is atraumatic, normocephalic. Pupils equal, round. Sclera anicteric. Conjunctiva are clear. Mucous membranes of the mouth are moist. Neck is supple. There is no elevated jugular venous pressure.] bruit is heard. HEART EXAMINATION: Heart S1 and S2 irregularly irregular systolic murmur is heard CHEST EXAMINATION: Lungs are clear with basilar crackles and expiratory wheezing heard. ABDOMEN: Soft, nontender. Bowel sounds are heard. No organomegaly noted. Right groin soft, no evidence of any hematoma. EXTREMITIES: 2+ peripheral pulses with no evidence of peripheral edema and no calf tenderness noted. NEUROLOGIC patient is awake, alert and oriented -3. . - Labs CBC & Chem 7: 09/07/17 05:40 09/07/17 05:40 Labs: Abnormal Lab Results - Last 24 Hours (Table) 09/06/17 09/07/17 09/07/17 Range/Units 05:28 05:40 05:40 Hgb 11.2 L (11.4-16.0) gm/dL BUN 25 H 25 H (7-17) mg/dL Creatinine 1.05 H (0.52-1.04) mg/dL Assessment and Plan Plan: Assessment and plan #1 atrial fibrillation with rapid ventricular response, persistent , patient is on Xarelto for anticoagulation. #2 known history of coronary disease with prior RCA stenting #3 hypertension #4 History of hypothyroidism, TSH level 0.015 this admission, Synthroid placed on hold. #5 hyperlipidemia Plan Patient underwent a cardiac catheterization yesterday which revealed a patent stent within the right coronary artery and mild nonobstructive disease involving the circumflex and LAD. Medical therapy was advised. From cardiology 's perspective, she may be able to be discharged home today. Follow-up appointment will be made with Dr. Flynn in the office. Amiodarone will continue at 400 mg one tablet by mouth twice a day for 3 days, then 200 mg by mouth twice a day. DNP note has been reviewed, I agree with a documented findings and plan of care. Patient was seen and examined.
--- NOTE | 2017-09-07 18:34 | P.PN ---
Subjective Progress Note Date: 09/07/17 Principal diagnosis: Acute COPD exacerbation, pulmonary fibrosis, atrial fibrillation with rapid ventricular response, acute on chronic diastolic heart failure with component of chronic systolic heart failure, severe COPD, chronic persistent asthma, coronary artery disease with history of stent placement in RCA, dyslipidemia, hypertension hypertensive cardiovascular disease 09/07/2017, patient seen and examined during the rounds clinically patient has been doing well in terms of breathing is still of intermittent episodes of palpitation, cardiovascular services been following this patient as she is status post cath and angiogramsignificant stenosis has been seen heart rate that has been slowly improving medications are being adjusted she denies any wheezing cough or congestion she has intermittent shortness of breath and she does respond well with bronchodilator therapy, she is being doing very well without the requirement for IV steroids labs reviewed medications reviewed, patient is being planned for possible discharge later on today, I reemphasized the importance of sleep disorder breathing and sleep apnea evaluation and treatment on the light of the having recurrent heart failure as well as atrial fibrillation with rapid ventricular response 09/06/2017, patient seen eval examined during the rounds clinically patient is not much change from baseline is still have intermittent episode of shortness of breath patient just received a breathing treatment with the severity or shortness breath is improved, on the other hand continued to have intermittent episodes of atrial fibrillation with rapid ventricular response Cardio Vascular service following patient is being planned for cardiac cath angiogram today, care plan reviewed and discussed with the patient and family present at bedside 09/05/2017, patient seen and examined during the rounds continue to be in A. fib with intermittent rapid ventricular response, patient is scheduled for cardiac cath angiogram chest x-ray performed today reviewed and compared with the prior x-ray bilateral small pleural effusion cannot be excluded with some subsegmental atelectasis at the left base along with cardiomegaly 09/04/2017, patient seen eval examined during the rounds clinically doing well especially at rest however had another episode of atrial fibrillation with rapid ventricular response, cardiovascular services been following and adjusting the medications, patient continued to deny any sputum production wheezing shortness of breath is being treated with bronchodilator she is being monitor observe off of his steroids, I had another discussion with her about importance of sleep disorder breathing and sleep apnea evaluation patient continued to decline for now we'll continue to treat asthma as a chronic stable persistent asthma and optimize therapy for A. fib and heart failure associated 09/03/2017, patient seen eval examined during the rounds clinically patient doing well in terms of breathing but still have intermittent episodes of atrial fibrillation with rapid ventricular response during that process patient developed shortness of breath however denies any cough or sputum production denies any chest pain at rest, 09/02/2017, patient seen eval examined during the rounds clinically patient has been doing well still and rapid ventricular response but however severity has improved the rate is slightly better hemodynamic status stable, patient's Synthroid dose is being adjusted as well, she does have a history of snoring off and on I've advised her for a polysomnogram patient wants to think about it. Medications reviewed him a white cell count is down to 8000 patient is being monitored off of his steroids and antibiotics on the on bronchodilator 09/01/2017 patient seen eval examined during the rounds clinically patient has been doing well, palpitation shortness of breath and fever better under control being eval by cardiovascular services as well, patient thyroid dosage is being adjusted appears to have component of iatrogenic hyperthyroidism Miss Harmony Arias a 72-year-old female with history of chronic atrial fibrillation, patient has severe COPD emphysema as well as well as history of chronic persistent asthma 2 days prior to presenting into the hospital yesterday started having palpitations increasing shortness of breath with those problem patient is mental the emergency department where she was seen evaluated examined she was found to be in atrial fibrillation she has been on anticoagulation all along to rapid A. fib And has been admitted into the hospital she on specific questioning he denies any cough or sputum production denies any night sweats or fever or chills denies any seizure-like to a loss of consciousness or hemiparesis denies any bowel or bladder related dysfunction Objective - Vital Signs Vital signs: Vital Signs Temp 97.4 F L 09/07/17 12:00 Pulse 118 H 09/07/17 12:08 Resp 18 09/07/17 12:00 BP 98/67 09/07/17 12:00 Pulse Ox 92 L 09/07/17 12:00 Intake & Output 09/06/17 09/07/17 09/07/17 18:59 06:59 18:59 Intake Total 340 240 Output Total 350 Balance 340 -350 240 Weight 90.4 kg 91.5 kg Intake: IV 100 0 0.9 0 Oral 240 240 Output: Urine 350 Stool 0 Other: Voiding Method Toilet # Voids 1 - Exam EYES: Pupils are round and reactive. Extraocular movements are intact. No conjunctival / lid redness or swelling. ENT: No external evidence of injury, swelling, or ecchymosis. Airway is patent. Throat is clear. NECK: Nontender. No swelling or evidence of injury. No subcutaneous emphysema. Trachea is midline. No thyroid mass. HEART: There is a tachycardic irregular rhythm. Good peripheral pulses. LUNGS/CHEST: Breath sounds clear and equal bilaterally. No rales, rhonchi, or wheezes. No ecchymosis, subcutaneous emphysema, or tenderness. ABDOMEN: Abdomen soft without tenderness. No palpable masses or organomegaly. No peritoneal signs. No abdominal wall swelling or ecchymosis. EXTREMITIES: No extremity tenderness. Normal muscle tone and function. No thoracolumbar tenderness. NEUROLOGIC: Sensation is grossly intact. Cranial nerve exam reveals face is symmetrical, tongue is midline, speech is clear. SKIN: No abrasions or ecchymosis is noted. No induration or masses noted. PSYCHIATRIC: Alert and oriented. Appropriate behavior and judgment. - Labs CBC & Chem 7: 09/07/17 05:40 09/07/17 05:40 Labs: Abnormal Lab Results - Last 24 Hours (Table) 09/07/17 09/07/17 Range/Units 05:40 05:40 Hgb 11.2 L (11.4-16.0) gm/dL BUN 25 H (7-17) mg/dL Creatinine 1.05 H (0.52-1.04) mg/dL Assessment and Plan Assessment: Atrial fibrillation with rapid ventricular response Coronary artery disease with history of the stent placement in RCA Iatrogenic hyperthyroidism very low TSH, Synthroid dose is being readjusted Acute onset of shortness of breath is related to above Acute diastolic heart failure however ongoing chronic systolic colic failure cannot be excluded Likely severe pulmonary hypertension multifactorial awaiting echocardiogram results and reports Chronic persistent asthma mild to moderate category by history COPD moderate grade on bronchodilators as needed at home in the form of nebulizer Hypertension hypertensive cardiovascular disease Dyslipidemia Sleep disorder breathing and sleep apnea Plan: Polysomnogram as outpatient if patient agreeable, and agree with discharge planning will follow on outpatient setting Cardiac cath and angiogram as per primary cardiovascular services, medication adjustment as tolerated Continue gentle diuresis Optimize medical therapy Deep breathing exercises incentive spirometry Follow echocardiogram reviewed, ejection fraction is 55%, mild elevated PA pressure noted, LA severely dilated over 40 mL/m2 Continue bronchodilators We'll hold on steroids or antibiotics at this point time Further recommendations pending plan of care as per clinical response of the patient agree with discharge planning with follow-up in outpatient setting Time with Patient: Greater than 30
--- NOTE | 2017-09-07 18:37 | P.DS ---
Providers Date of admission: 08/30/17 19:31 Expected date of discharge: 09/07/17 Attending physician: May Yoon Consults: 08/30/17 20:48 Consult Physician Urgent Consulting Provider: Meliza Morrissey Consult Reason/Comments: a-fib with rvr, cp Do you want consulting provider notified?: Yes 08/30/17 23:51 Consult Physician Routine Consulting Provider: Arnel Leary Consult Reason/Comments: copd Do you want consulting provider notified?: Yes Primary care physician: Nirali Elizabeth Hospital Course: Final Diagnoses: 1. Atrial fibrillation with RVR 2. Low TSH with normal free T3 and free T4, continue holding Synthroid. Repeat TSH, free T3, free T4 outpatient with PCP in 3 days at follow-up visit 3 acute exacerbation COPD 4. Leukocytosis, steroid-induced 5. Chest pain, status post cardiac catheterization reporting patent RCA stent, mild nonobstructive disease of circumflex and LAD Hospital course:This is a 72-year-old female admitted with atrial fibrillation with rapid ventricular rate, acute COPD exacerbation and multiple other medical issues. Telemetry reporting atrial fibrillation with fast ventricular rate - continues on Cardizem drip. Afebrile. Denies chest pain, palpitations. Denies lightheadedness dizziness or focal deficits. 09/04/2017 complains of midsternal chest pain radiating to bilateral shoulders, accompanied by shortness of breath, heart rates in the 120s. Beta justin dose increased. TSH remains low, free T4 within normal range. 09/05/2017 telemetry reporting atrial fibrillation currently in the 120s; weight had been up into the 150s during the night. Scheduled for cardiac catheterization tomorrow. No further chest pain episodes. Denies palpitations. Chest x-ray reporting persistent patchy left lower lobe density. Afebrile. 09/06/17 underwent cardiac catheterization, reporting patent RCA stent, mild non- obstructive disease of circumflex and left anterior descending. Tolerated procedure well. Optimizing medical therapy recommended with Amiodarone added to med regime.Telemetry atrial fibrillation with heart rates ranging in the low 100s. TSH less than 0.015, free T4 on admission 1.87, down to 1.5, T3 4.5, Synthroid on hold. 09/07/2017 significant clinical improvement. Cleared by cardiology for discharge. Patient is being discharged home in a stable condition with a guarded prognosis. EXAM: GENERAL: Sitting up in chair, alert and oriented 3 ,no acute distress CARDIOVASCULAR: S1, S2 muffled.systolic murmur RESPIRATION: Breath sounds diminished in the bases. ABDOMEN: Soft, nontender . No guarding. no masses palpable. Positive bowel sounds. NERVOUS SYSTEM: No focal deficits. The impression and plan of care has been dictated as directed. : I performed a history and examination of this patient, discussed the same with the dictator. I agree with the dictator's note ,documented as a scribe. Any additional findings or plans will be noted. Time taken: 35 minutes Patient Condition at Discharge: Stable Plan - Discharge Summary New Discharge Prescriptions: New Docusate [Colace] 100 mg PO BID #60 cap Amiodarone [Cordarone] 400 mg PO BID #90 tab Continue Albuterol Sulfate [Ventolin HFA] 2 puff INHALATION RT-Q6H PRN PRN Reason: Shortness Of Breath Multivitamins, Thera [Multivitamin (formulary)] 1 tab PO DAILY Vit C/E/Zn/Coppr/Lutein/Zeaxan [Preservision Areds 2 Softgel] 1 cap PO BID Aspirin EC [Ecotrin Low Dose] 81 mg PO DAILY #30 tablet. Atorvastatin [Lipitor] 40 mg PO HS #30 tab Rivaroxaban [Xarelto] 20 mg PO AC-SUPPER #30 tablet Vitamin E 100 unit PO DAILY Magnesium Oxide [Mag-Ox] 250 mg PO HS Cyanocobalamin (Vitamin B-12) [Vitamin B-12] 1,000 mcg PO DAILY Cholecalciferol [Vitamin D3] 1,000 unit PO DAILY Budesonide [Pulmicort] 0.5 mg PO RT-BID guaiFENesin [Mucinex] 600 mg PO BID Ipratropium Nebulized [Atrovent Nebulized] 0.5 mg INHALATION RT-TID #0 Discharge Medication List Albuterol Sulfate [Ventolin HFA] 2 puff INHALATION RT-Q6H PRN 08/11/13 [History] Multivitamins, Thera [Multivitamin (formulary)] 1 tab PO DAILY 05/31/14 [History ] Vit C/E/Zn/Coppr/Lutein/Zeaxan [Preservision Areds 2 Softgel] 1 cap PO BID 03/02 [History] Aspirin EC [Ecotrin Low Dose] 81 mg PO DAILY #30 tablet. 03/04/15 [Rx] Atorvastatin [Lipitor] 40 mg PO HS #30 tab 03/04/15 [Rx] Rivaroxaban [Xarelto] 20 mg PO AC-SUPPER #30 tablet 03/04/15 [Rx] Budesonide [Pulmicort] 0.5 mg PO RT-BID 08/30/17 [History] Cholecalciferol [Vitamin D3] 1,000 unit PO DAILY 08/30/17 [History] Cyanocobalamin (Vitamin B-12) [Vitamin B-12] 1,000 mcg PO DAILY 08/30/17 [ History] Magnesium Oxide [Mag-Ox] 250 mg PO HS 08/30/17 [History] Vitamin E 100 unit PO DAILY 08/30/17 [History] guaiFENesin [Mucinex] 600 mg PO BID 08/30/17 [History] Amiodarone [Cordarone] 400 mg PO BID #90 tab 09/07/17 [Rx] Docusate [Colace] 100 mg PO BID #60 cap 09/07/17 [Rx] Ipratropium Nebulized [Atrovent Nebulized] 0.5 mg INHALATION RT-TID #0 09/07/17 [Rx] Follow up Appointment(s)/Referral(s): Arnel Leary MD [STAFF PHYSICIAN] - 09/14/17 12:00 pm Nirali Elizabeth MD [Primary Care Provider] - 09/12/17 10:45 am (Monday) Rajesh Flynn MD [STAFF PHYSICIAN] - 09/14/17 1:45 pm () Ambulatory/Diagnostic Orders: Complete Blood Count w/diff [LAB.AMB] Time Frame: 3 Days, Location: None Selected Patient Instructions/Handouts: *Surgery [facility] - After Heart Catheterization - [employer] Inspector Instructions, A-fib (Atrial Fibrillation) (DC), Heart Healthy Diet (DC) Activity/Diet/Wound Care/Special Instructions: levothyroxine on hold, repeat TSH, free T3, free T4 outpatient with PCP at follow-up visit in 3 days Activity: Limited until follow up Discharge Disposition: HOME SELF-CARE
[2017-09-09] MEDS ORDERED: AMIODARONE 200 MG TAB PO SCH (08:00)
== END 2017-09-07 12:56 | disposition home or self-care (01) | DRG 286 ==
LOC: EC 19:06 → 6SEL 19:31
PROVIDERS: ADMIT Hospitalist; ATTEND Hospitalist
PROC: B211YZZ Fluoroscopy of Multiple Coronary Arteries using Other Contrast (ICD-10-PCS; 2017-09-06)
PROC: 4A023N7 Measurement of Cardiac Sampling and Pressure, Left Heart, Percutaneous Approach (ICD-10-PCS; principal; 2017-09-06 09:30)
DX: I48.2 Chronic atrial fibrillation (principal); I50.33 Acute on chronic diastolic (congestive) heart failure; I50.22 Chronic systolic (congestive) heart failure; J98.11 Atelectasis; I25.110 Atherosclerotic heart disease of native coronary artery with unstable angina pectoris; I27.20 Pulmonary hypertension, unspecified; J84.10 Pulmonary fibrosis, unspecified; J43.9 Emphysema, unspecified; I11.0 Hypertensive heart disease with heart failure; E05.80 Other thyrotoxicosis without thyrotoxic crisis or storm; I34.0 Nonrheumatic mitral (valve) insufficiency; J45.50 Severe persistent asthma, uncomplicated; G47.30 Sleep apnea, unspecified; E78.5 Hyperlipidemia, unspecified; E03.9 Hypothyroidism, unspecified; D72.829 Elevated white blood cell count, unspecified; T38.0X5A Adverse effect of glucocorticoids and synthetic analogues, initial encounter; T38.1X5A Adverse effect of thyroid hormones and substitutes, initial encounter; R09.02 Hypoxemia; K44.9 Diaphragmatic hernia without obstruction or gangrene; I25.2 Old myocardial infarction; M10.9 Gout, unspecified; Z79.82 Long term (current) use of aspirin; Z79.01 Long term (current) use of anticoagulants; Z79.899 Other long term (current) drug therapy; Z79.51 Long term (current) use of inhaled steroids; Z79.890 Hormone replacement therapy; Z88.5 Allergy status to narcotic agent; Z88.2 Allergy status to sulfonamides; Z87.891 Personal history of nicotine dependence; Z87.01 Personal history of pneumonia (recurrent); Z95.5 Presence of coronary angioplasty implant and graft; Z90.49 Acquired absence of other specified parts of digestive tract; Z90.710 Acquired absence of both cervix and uterus; Z82.49 Family history of ischemic heart disease and other diseases of the circulatory system; Z80.3 Family history of malignant neoplasm of breast; Z82.3 Family history of stroke; Z82.5 Family history of asthma and other chronic lower respiratory diseases
CPT/HCPCS: 36415; 71046; 80048; 80053; 80061; 81001; 82550; 82553; 83036; 83735; 84439; 84443; 84481; 84484; 85025; 85610; 85730; 93005; 93306; 93458; 94640; 94760; 96365; 99291

== ENCOUNTER 2017-09-11 13:00 | Inpatient (IN) | payer MEDICARE ==
[2017-09-11] MEDS ORDERED: SODIUM CHLORIDE 0.9% 1,000 ML IV STA (13:11)
[2017-09-11] MEDS ORDERED: DILTIAZEM DRIP BOLUS FROM BAG 1 MG SOLN IV ONE (13:11)
--- NOTE | 2017-09-11 13:14 | ED ---
Arrhythmia/Palpitations HPI - General Stated Complaint: TACHYCARDIA Time Seen by Provider: 09/11/17 13:00 Source: patient, EMS, RN notes reviewed Mode of arrival: EMS - History of Present Illness Initial Comments: This is a 72-year-old female who presents by EMS with complaints of elevated heart rate today. She has occasional PVCs she is short of breath. She was found have a heart rate between 150- 180 consistent with atrial fibrillation with a rapid ventricular response also she was slightly wheezy. She states she just was discharged from the hospital after having a cardiac catheterization and was treated for A. fib. She has no other complaints at this time MD Complaint: rapid heart beat, palpitations - Related Data Home Medications Medication Instructions Recorded Confirmed Albuterol Sulfate [Ventolin HFA] 2 puff INHALATION RT-Q6H PRN 08/11/13 09/11/17 Multivitamins, Thera [Multivitamin 1 tab PO DAILY 05/31/14 09/11/17 (formulary)] Vit C/E/Zn/Coppr/Lutein/Zeaxan 1 cap PO BID 03/02/15 09/11/17 [Preservision Areds 2 Softgel] Budesonide [Pulmicort] 0.5 mg PO RT-BID 08/30/17 09/11/17 Cholecalciferol [Vitamin D3] 1,000 unit PO DAILY 08/30/17 09/11/17 Cyanocobalamin (Vitamin B-12) 1,000 mcg PO DAILY 08/30/17 09/11/17 [Vitamin B-12] Magnesium Oxide [Mag-Ox] 250 mg PO DAILY 08/30/17 09/11/17 Vitamin E 100 unit PO DAILY 08/30/17 09/11/17 guaiFENesin [Mucinex] 600 mg PO BID 08/30/17 09/11/17 Amiodarone [Cordarone] 200 mg PO BID 09/11/17 09/11/17 Aspirin EC [Ecotrin Low Dose] 81 mg PO HS 09/11/17 09/11/17 Rivaroxaban [Xarelto] 20 mg PO DAILY 09/11/17 09/11/17 Previous Rx's Medication Instructions Recorded Atorvastatin [Lipitor] 40 mg PO HS #30 tab 03/04/15 Docusate [Colace] 100 mg PO BID #60 cap 09/07/17 Ipratropium Nebulized [Atrovent 0.5 mg INHALATION RT-TID #0 09/07/17 Nebulized] Allergies Allergy/AdvReac Type Severity Reaction Status Date / Time codeine Allergy Itching Verified 09/11/17 13:47 Sulfa (Sulfonamide Allergy Hallucinati Verified 09/11/17 13:47 Antibiotics) ons Review of Systems ROS Statement: Those systems with pertinent positive or pertinent negative responses have been documented in the HPI. ROS Other: All systems not noted in ROS Statement are negative. Past Medical History Past Medical History: Atrial Fibrillation, Asthma, Coronary Artery Disease (CAD) , COPD, Myocardial Infarction ([place]), Pneumonia, Thyroid Disorder Additional Past Medical History / Comment(s): Gout in left foot, patients physician states that she did not have congestive heart failure, hiatal hernia, osteoporosis Last Myocardial Infarction Date:: 2011 History of Any Multi-Drug Resistant Organisms: None Reported Past Surgical History: Cholecystectomy, Heart Catheterization With Stent, Hysterectomy, Tonsillectomy Additional Past Surgical History / Comment(s): right shoulder, left wrist. Thyroid Nodule removed Past Anesthesia/Blood Transfusion Reactions: No Reported Reaction Date of Last Stent Placement:: 2011 Past Psychological History: No Psychological Hx Reported Smoking Status: Former smoker Past Alcohol Use History: None Reported Past Drug Use History: None Reported - Past Family History Mother Family Medical History: Cancer, Congestive Heart Failure (CHF), Myocardial Infarction (MD), Pneumonia, Pulmonary Embolus Additional Family Medical History / Comment(s): breast CA Father Family Medical History: CVA/TIA, Myocardial Infarction (MD) General Exam - General Exam Comments Initial Comments: This is a well-developed well-nourished awake alert oriented 3 female General appearance: alert, anxious Head exam: Present: atraumatic, normocephalic, normal inspection Eye exam: Present: normal appearance, PERRL, EOMI. Absent: scleral icterus, conjunctival injection, periorbital swelling ENT exam: Present: normal exam, mucous membranes moist Neck exam: Present: normal inspection. Absent: tenderness, meningismus, lymphadenopathy Respiratory exam: Present: normal lung sounds bilaterally. Absent: respiratory distress, wheezes, rales, rhonchi, stridor Cardiovascular Exam: Present: tachycardia, irregular rhythm. Absent: systolic murmur, diastolic murmur, rubs, gallop, clicks GI/Abdominal exam: Present: soft, normal bowel sounds. Absent: distended, tenderness, guarding, rebound, rigid Extremities exam: Present: normal inspection, full ROM, normal capillary refill. Absent: tenderness, pedal edema, joint swelling, calf tenderness Back exam: Present: normal inspection Neurological exam: Present: alert, oriented X3, CN II-XII intact Psychiatric exam: Present: normal affect, normal mood Skin exam: Present: warm, dry, intact, normal color. Absent: rash Course Vital Signs 09/11/17 09/11/17 09/11/17 13:11 14:50 15:16 Temperature 98.5 F Pulse Rate 166 H 143 H 140 H Respiratory 18 18 18 Rate Blood Pressure 162/73 155/83 145/72 O2 Sat by Pulse 96 98 95 Oximetry - Reevaluation(s) Reevaluation #1: 09/11/17 15:38 Reevaluation patient reveals no change in her status us far. IV Cardizem is going. EKG Findings - EKG Results: EKG: interpreted by ANA, sinus rhythm (Atrial fibrillation rate of 140 QRS 108 QT since QTC of 320/48 poor R-wave progression nonspecific ST configuration) Medical Decision Making - Medical Decision Making I did discuss [employer] the patient family members patient will be admitted to the hospital for reevaluation of rapid ventricular response atrial fibrillation - Lab Data Result diagrams: 09/11/17 13:28 09/11/17 13:28 Lab Results 09/11/17 09/11/17 09/11/17 Range/Units 13:28 13:28 13:28 WBC 10.0 (3.8-10.6) k/uL RBC 4.52 (3.80-5.40) m/uL Hgb 11.8 (11.4-16.0) gm/dL Hct 36.6 (34.0-46.0) % MCV 81.1 (80.0-100.0) fL MCH 26.1 (25.0-35.0) pg MCHC 32.2 (31.0-37.0) g/dL RDW 15.6 H (11.5-15.5) % Plt Count 204 (150-450) k/uL Neutrophils % 65 % Lymphocytes % 25 % Monocytes % 6 % Eosinophils % 2 % Basophils % 0 % Neutrophils # 6.5 (1.3-7.7) k/uL Lymphocytes # 2.5 (1.0-4.8) k/uL Monocytes # 0.6 (0-1.0) k/uL Eosinophils # 0.2 (0-0.7) k/uL Basophils # 0.0 (0-0.2) k/uL PT 11.3 (9.0-12.0) sec INR 1.2 H (<1.2) APTT 24.5 (22.0-30.0) sec Sodium 140 (137-145) mmol/L Potassium 3.8 (3.5-5.1) mmol/L Chloride 102 (98-107) mmol/L Carbon Dioxide 25 (22-30) mmol/L Anion Gap 13 mmol/L BUN 14 (7-17) mg/dL Creatinine 0.95 (0.52-1.04) mg/dL Est GFR (CKD-EPI)AfAm 70 (>60 ml/min/1.73 sqM) Est GFR (CKD-EPI)NonAf 60 (>60 ml/min/1.73 sqM) Glucose 138 H (74-99) mg/dL Calcium 8.8 (8.4-10.2) mg/dL Magnesium 1.5 L (1.6-2.3) mg/dL Total Bilirubin 0.5 (0.2-1.3) mg/dL AST 23 (14-36) U/L ALT 21 (9-52) U/L Alkaline Phosphatase 93 (38-126) U/L Total Creatine Kinase (30-135) U/L CK-MB (CK-2) (0.0-2.4) ng/mL CK-MB (CK-2) Rel Index Troponin I (0.000-0.034) ng/mL NT-Pro-B Natriuret Pep pg/mL Total Protein 6.4 (6.3-8.2) g/dL Albumin 3.8 (3.5-5.0) g/dL 09/11/17 09/11/17 Range/Units 13:28 13:28 WBC (3.8-10.6) k/uL RBC (3.80-5.40) m/uL Hgb (11.4-16.0) gm/dL Hct (34.0-46.0) % MCV (80.0-100.0) fL MCH (25.0-35.0) pg MCHC (31.0-37.0) g/dL RDW (11.5-15.5) % Plt Count (150-450) k/uL Neutrophils % % Lymphocytes % % Monocytes % % Eosinophils % % Basophils % % Neutrophils # (1.3-7.7) k/uL Lymphocytes # (1.0-4.8) k/uL Monocytes # (0-1.0) k/uL Eosinophils # (0-0.7) k/uL Basophils # (0-0.2) k/uL PT (9.0-12.0) sec INR (<1.2) APTT (22.0-30.0) sec Sodium (137-145) mmol/L Potassium (3.5-5.1) mmol/L Chloride (98-107) mmol/L Carbon Dioxide (22-30) mmol/L Anion Gap mmol/L BUN (7-17) mg/dL Creatinine (0.52-1.04) mg/dL Est GFR (CKD-EPI)AfAm (>60 ml/min/1.73 sqM) Est GFR (CKD-EPI)NonAf (>60 ml/min/1.73 sqM) Glucose (74-99) mg/dL Calcium (8.4-10.2) mg/dL Magnesium (1.6-2.3) mg/dL Total Bilirubin (0.2-1.3) mg/dL AST (14-36) U/L ALT (9-52) U/L Alkaline Phosphatase (38-126) U/L Total Creatine Kinase 36 (30-135) U/L CK-MB (CK-2) 1.0 (0.0-2.4) ng/mL CK-MB (CK-2) Rel Index 2.8 Troponin I <0.012 (0.000-0.034) ng/mL NT-Pro-B Natriuret Pep 3820 pg/mL Total Protein (6.3-8.2) g/dL Albumin (3.5-5.0) g/dL - Radiology Data Radiology results: report reviewed (I did review the imaging and report some evidence of pulmonary vascular congestion.), image reviewed Critical Care Time Critical Care Time: Yes Critical Care Time: 32 minutes of critical care time which includes initial presentation with history physical labs x-rays review of old charting. Discussion with paramedics regarding the findings. Discussion with the main physician admission orders and documentation of the above Disposition Clinical Impression: Rapid atrial fibrillation, Hypomagnesemia syndrome, Bronchospasm, acute Disposition: ADMITTED IP TO THIS HOSP Condition: Stable Referrals: Nirali Elizabeth MD [Primary Care Provider] - 1-2 days
[2017-09-11 13:39] LABS: Basophils % (A) 0 %; Eosinophils # (A) 0.2 k/uL (0-0.7); Eosinophils % (A) 2 %; HCT 36.6 % (34.0-46.0); HGB 11.8 gm/dL (11.4-16.0); Lymphocytes # (A) 2.5 k/uL (1.0-4.8); Lymphocytes % (A) 25 %; MCH 26.1 pg (25.0-35.0); MCHC 32.2 g/dL (31.0-37.0); MCV 81.1 fL (80.0-100.0); Mean Platelet Volume 6.8; Monocytes # (A) 0.6 k/uL (0-1.0); Monocytes % (A) 6 %; Neutrophils # (A) 6.5 k/uL (1.3-7.7); Neutrophils % (A) 65 %; Platelet Count 204 k/uL (150-450); RBC 4.52 m/uL (3.80-5.40); RDW 15.6 % (11.5-15.5)
[2017-09-11] MEDS: DILTIAZEM 50 MG in SODIUM CHLORIDE 0.9% 40 ML IV SCH (13:40)
[2017-09-11 13:47] LABS: INR 1.2 (<1.2); Partial Thromboplastin Time 24.5 sec (22.0-30.0); Prothrombin Time 11.3 sec (9.0-12.0)
[2017-09-11 13:48] LABS: Albumin 3.8 g/dL (3.5-5.0); Calcium 8.8 mg/dL (8.4-10.2); Magnesium 1.5 mg/dL (1.6-2.3); Potassium 3.8 mmol/L (3.5-5.1); Total Bilirubin 0.5 mg/dL (0.2-1.3); Total Protein 6.4 g/dL (6.3-8.2)
[2017-09-11 14:03] LABS: Creatine Kinase 36 U/L (30-135)
[2017-09-11 14:17] LABS: Troponin I <0.012 ng/mL (0.000-0.034)
--- NOTE | 2017-09-11 14:21 | XR ---
EXAMINATION TYPE: XR chest 2V DATE OF EXAM: 09/11/2017 COMPARISON: 09/05/2017 HISTORY: 72-year-old female with dysrhythmia, shortness of breath, COPD, tachycardia TECHNIQUE: AP and lateral views FINDINGS: Heart mildly enlarged. Diffuse interstitial and vascular prominence. Bilateral hilar prominence. Hazy left basilar density likely prominent epicardial fat pad, stable from prior. Otherwise, no consolida tion or pleural effusion seen. Hyperinflation. IMPRESSION: 1. COPD. 2. Cardiomegaly and interstitial changes. Correlate for CHF and pulmonary vascular congestion. 3. Bilateral hilar prominence suggests underlying pulmonary arterial hypertension.
[2017-09-11] MEDS ORDERED: MAGNESIUM SULFATE-D5W PMX 1 GM in DEXTROSE/WATER 1 100ML.BAG IVPB ONE ×2 (14:41→15:45)
[2017-09-11] MEDS ORDERED: NALOXONE 0.4 MG/ML 1 ML VIAL IV PRN (15:42)
[2017-09-11] MEDS ORDERED: ALBUTEROL NEBULIZED 2.5 MG/3 ML INHALATION PRN (15:44)
--- NOTE | 2017-09-11 17:11 | P.HPIM ---
History of Present Illness 70-year-old pleasant female was recently discharged from the hospital after she was treated for atrial fibrillation with rapid ventricular rate. Patient came in with complaints of shortness of breath palpitations patient that is found to be in atrial fibrillation. Patient was started on Cardizem and patient heart rate is still in 120s because of which I'll leave her on Cardizem patient had normal ejection fraction the past patient was discharged on amiodarone 400 mg for 3 days followed by 200 mg daily. Patient appears like completed her 400 mg dose and comes back with increased heart rate. Patient clinically does not appear to have CHF but patient has elevated BNP patient denied any significant orthopnea or PND patient does have history of COPD minimal wheeze on exam. And was given a dose of IV steroid when she was on the way here via ambulance. Patient did have normal ejection fraction the past patient was comparing of cough without any significant sputum production. Patient denied any fever chills dysuria nausea vomiting. Review of Systems REVIEW OF SYSTEMS: CONSTITUTIONAL: No fever, no malaise, no fatigue. HEENT: No recent visual problems or hearing problems. Denied any sore throat. CARDIOVASCULAR: No chest pain, orthopnea, PND, no syncope. PULMONARY: no hemoptysis. GASTROINTESTINAL: No diarrhea, no nausea, no vomiting, no abdominal pain. Normoactive bowel sounds. NEUROLOGICAL: No headaches, no weakness, no numbness. HEMATOLOGICAL: Denies any bleeding or petechiae. GENITOURINARY: Denies any burning micturition, frequency, or urgency. MUSCULOSKELETAL/RHEUMATOLOGICAL: Denies any joint pain, swelling, or any muscle pain. ENDOCRINE: Denies any polyuria or polydipsia. The rest of the 14-point review of systems is negative. Past Medical History Past Medical History: Atrial Fibrillation, Asthma, Coronary Artery Disease (CAD) , COPD, Myocardial Infarction ([place]), Pneumonia, Thyroid Disorder Additional Past Medical History / Comment(s): Gout in left foot, patients physician states that she did not have congestive heart failure, hiatal hernia, osteoporosis Last Myocardial Infarction Date:: 2011 History of Any Multi-Drug Resistant Organisms: None Reported Past Surgical History: Cholecystectomy, Heart Catheterization With Stent, Hysterectomy, Tonsillectomy Additional Past Surgical History / Comment(s): right shoulder, left wrist. Thyroid Nodule removed Past Anesthesia/Blood Transfusion Reactions: No Reported Reaction Date of Last Stent Placement:: 2012 Past Psychological History: No Psychological Hx Reported Smoking Status: Former smoker Past Alcohol Use History: None Reported Past Drug Use History: None Reported - Past Family History Mother Family Medical History: Cancer, Congestive Heart Failure (CHF), Myocardial Infarction ([place]), Pneumonia, Pulmonary Embolus Additional Family Medical History / Comment(s): breast CA Father Family Medical History: CVA/TIA, Myocardial Infarction ([place]) Medications and Allergies Home Medications Medication Instructions Recorded Confirmed Type Albuterol Sulfate [Ventolin HFA] 2 puff INHALATION RT-Q6H PRN 08/11/13 09/11/17 History Multivitamins, Thera [Multivitamin 1 tab PO DAILY 05/31/14 09/11/17 History (formulary)] Vit C/E/Zn/Coppr/Lutein/Zeaxan 1 cap PO BID 03/02/15 09/11/17 History [Preservision Areds 2 Softgel] Atorvastatin [Lipitor] 40 mg PO HS #30 tab 03/04/15 09/11/17 Rx Budesonide [Pulmicort] 0.5 mg PO RT-BID 08/30/17 09/11/17 History Cholecalciferol [Vitamin D3] 1,000 unit PO DAILY 08/30/17 09/11/17 History Cyanocobalamin (Vitamin B-12) 1,000 mcg PO DAILY 08/30/17 09/11/17 History [Vitamin B-12] Magnesium Oxide [Mag-Ox] 250 mg PO DAILY 08/30/17 09/11/17 History Vitamin E 100 unit PO DAILY 08/30/17 09/11/17 History guaiFENesin [Mucinex] 600 mg PO BID 08/30/17 09/11/17 History Docusate [Colace] 100 mg PO BID #60 cap 09/07/17 09/11/17 Rx Ipratropium Nebulized [Atrovent 0.5 mg INHALATION RT-TID #0 09/07/17 09/11/17 Rx Nebulized] Amiodarone [Cordarone] 200 mg PO BID 09/11/17 09/11/17 History Aspirin EC [Ecotrin Low Dose] 81 mg PO HS 09/11/17 09/11/17 History Rivaroxaban [Xarelto] 20 mg PO DAILY 09/11/17 09/11/17 History Allergies Allergy/AdvReac Type Severity Reaction Status Date / Time codeine Allergy Itching Verified 09/11/17 13:47 Sulfa (Sulfonamide Allergy Hallucinati Verified 09/11/17 13:47 Antibiotics) ons Physical Exam Vitals: Vital Signs Temp Pulse Resp BP Pulse Ox 09/11/17 15:16 140 H 18 145/72 95 09/11/17 14:50 143 H 18 155/83 98 09/11/17 13:11 98.5 F 166 H 18 162/73 96 Intake and Output 09/11/17 09/11/17 09/11/17 06:59 14:59 22:59 Other: Weight 90.718 kg PHYSICAL EXAMINATION: GENERAL: The patient is alert and oriented x3, not in any acute distress. Well developed, well nourished. HEENT: Pupils are round and equally reacting to light. EOMI. No scleral icterus. No conjunctival pallor. Normocephalic, atraumatic. No pharyngeal erythema. No thyromegaly. CARDIOVASCULAR: S1 and S2 present. No murmurs, rubs, or gallops. Tachycardic, irregularly regular rhythm PULMONARY: Decreased air entry into bilateral lung moreno and minimal expiratory wheezing was appreciated. ABDOMEN: Soft, nontender, nondistended, normoactive bowel sounds. No palpable organomegaly. MUSCULOSKELETAL: No joint swelling or deformity. EXTREMITIES: No cyanosis, clubbing, or pedal edema. NEUROLOGICAL: Gross neurological examination did not reveal any focal deficits. SKIN: No rashes. Results CBC & Chem 7: 09/11/17 13:28 09/11/17 13:28 Labs: Abnormal Lab Results - Last 24 Hours (Table) 09/11/17 09/11/17 09/11/17 Range/Units 13:28 13:28 13:28 RDW 15.6 H (11.5-15.5) % INR 1.2 H (<1.2) Glucose 138 H (74-99) mg/dL Magnesium 1.5 L (1.6-2.3) mg/dL Assessment and Plan Plan: -Atrial fibrillation with rapid and regular rate patient precipitating factor is probably shortness of breath and wheezing, patient's levothyroxine was recently started will obtain a TSH patient will be continued on amiodarone continue her anticoagulation. Replace magnesium. It looks like patient takes Xarelto in the morning will verify that and the patient will be started according either tonight or tomorrow morning. -Hypomagnesemia magnesium will supplemented -COPD with minimal exacerbation -Coronary artery disease -Hypothyroidism recently was on levothyroxin which was discontinued because of her elevated TSH during her last hospitalization will obtain repeat TSH.
[2017-09-11] MEDS: SODIUM CHLORIDE 0.9% 1,000 ML IV SCH (17:20)
[2017-09-11] MEDS ORDERED: BUDESONIDE 0.5 MG/2 ML NEBU INHALATION SCH (20:00)
[2017-09-11] MEDS: guaiFENesin 600 MG TABLET.ER PO SCH (20:16)
[2017-09-11] MEDS: VIT A,C & E-LUTEIN-MINERALS 1 EACH TAB PO SCH (20:16)
[2017-09-11] MEDS: ASPIRIN 81 MG PO SCH (20:16)
[2017-09-11] MEDS: ATORVASTATIN 40 MG TAB PO SCH (20:17)
[2017-09-11] MEDS: DOCUSATE 100 MG CAP PO SCH (20:17)
[2017-09-11] MEDS: AMIODARONE 200 MG TAB PO SCH (20:17)
[2017-09-11] MEDS: IPRATROPIUM-ALBUTEROL 3 ML NEB INHALATION PRN (20:35)
[2017-09-11] MEDS: SYMBICORT 160-4.5 MCG INHALER INHALATION SCH (20:35)
[2017-09-11] MEDS: IPRATROPIUM 0.5 MG/2.5 ML NEBU INHALATION SCH (20:36)
[2017-09-12] MEDS: DILTIAZEM 50 MG in SODIUM CHLORIDE 0.9% 40 ML IV SCH ×4 (02:24→19:52)
[2017-09-12] MEDS: ALPRAZolam 0.25 MG TAB PO PRN ×3 (02:55→22:20)
[2017-09-12] MEDS: IPRATROPIUM-ALBUTEROL 3 ML NEB INHALATION PRN ×3 (03:59→13:23)
[2017-09-12 06:38] LABS: Anion Gap 9 mmol/L; Blood Urea Nitrogen 14 mg/dL (7-17); Calcium 8.7 mg/dL (8.4-10.2); Carbon Dioxide 23 mmol/L (22-30); Chloride 106 mmol/L (98-107); Glucose 140 mg/dL (74-99); Potassium 4.7 mmol/L (3.5-5.1); Sodium 138 mmol/L (137-145)
[2017-09-12 07:04] LABS: Basophils % (A) 0 %; Eosinophils % (A) 0 %; HCT 36.7 % (34.0-46.0); HGB 11.3 gm/dL (11.4-16.0); Hypochromasia Slight; Lymphocytes # (A) 1.1 k/uL (1.0-4.8); Lymphocytes % (A) 5 %; MCH 25.9 pg (25.0-35.0); MCHC 30.9 g/dL (31.0-37.0); MCV 83.8 fL (80.0-100.0); Mean Platelet Volume 7.1; Monocytes # (A) 0.6 k/uL (0-1.0); Monocytes % (A) 3 %; Neutrophils # (A) 19.5 k/uL (1.3-7.7); Neutrophils % (A) 92 %; Platelet Count 221 k/uL (150-450); RBC 4.37 m/uL (3.80-5.40); RDW 15.8 % (11.5-15.5); WBC 21.2 k/uL (3.8-10.6)
[2017-09-12] MEDS: IPRATROPIUM 0.5 MG/2.5 ML NEBU INHALATION SCH ×3 (08:13→20:06)
[2017-09-12] MEDS: SYMBICORT 160-4.5 MCG INHALER INHALATION SCH ×3 (08:13→20:13)
[2017-09-12] MEDS: VIT A,C & E-LUTEIN-MINERALS 1 EACH TAB PO SCH ×2 (08:19→19:56)
[2017-09-12] MEDS: guaiFENesin 600 MG TABLET.ER PO SCH ×2 (08:20→19:56)
[2017-09-12] MEDS: DOCUSATE 100 MG CAP PO SCH ×2 (08:20→19:56)
[2017-09-12] MEDS: AMIODARONE 200 MG TAB PO SCH (08:20)
[2017-09-12] MEDS: RIVAROXABAN 20 MG TAB PO SCH (08:20)
[2017-09-12] MEDS ORDERED: DEXTROSE 5% IN WATER 100 ML with AMIODARONE 150 MG IV ONE (08:30)
[2017-09-12] MEDS ORDERED: NON-FORMULARY DRUG (Vitamin E [Vitamin E] 100 UNIT) PO SCH (09:00)
--- NOTE | 2017-09-12 09:41 | CONS ---
CONSULTATION CHIEF COMPLAINT: Palpitations. Harmony is a 72-year-old lady with history of chronic atrial fibrillation, coronary artery disease, status post angioplasty, who was recently discharged home following her admission with atrial fibrillation, comes in complaining of shortness of breath and was found to be in atrial fibrillation with rapid ventricular rate. I discharged her home on her last admission on 400 b.i.d. of amiodarone and then it was decreased to 200 mg b.i.d. At the time of my evaluation this morning she is in atrial fibrillation with rapid ventricular rate. She underwent recent cardiac catheterization and was advised medical therapy. She is currently on intravenous Cardizem and the dose had been increased to 10 mg. I am going to start her on intravenous amiodarone. PAST MEDICAL HISTORY: Significant for chronic atrial fibrillation, coronary artery disease, hypothyroidism. MEDICATIONS: Medications at home include Lipitor, inhalers, Pulmicort, Mucinex, nebulizer, Xarelto, Cordarone, and aspirin. ALLERGIES: Allergic to SULFA and CODEINE. FAMILY HISTORY: Negative for premature coronary artery disease. SOCIAL HISTORY: Negative for current smoking, EtOH abuse or drug abuse. REVIEW OF SYSTEMS: HEENT is unremarkable. CARDIAC: As described above. RESPIRATORY: As described above. GI: Negative. GENITOURINARY: Negative. ALLERGY/IMMUNOLOGICAL: Negative. SKIN: Negative. MUSCULOSKELETAL: Negative. ENDOCRINE: Negative. HEMATOLOGICAL: Negative. DERM: Negative. CONSTITUTIONAL: Negative. ONCOLOGICAL: Negative. Rest of the system review is not relevant. PHYSICAL EXAMINATION: On exam, patient is comfortable at rest. Heart rate is in the 120s per minute. Blood pressure is 140/65, respiratory rate is 18. Chest exam reveals occasional rhonchi bilaterally. Heart exam reveals first and second heart sounds, irregular rhythm. Systolic murmur at the apex. Abdomen is soft. Examination of extremities did not reveal any edema. Peripheral pulses are felt. LABS: Labs show a hemoglobin of 11.3, platelet count is 221, potassium is 4.7, creatinine is 0.76. BNP is 3820. TSH is 0.29 and a free T4 is pending at this time. ASSESSMENT: 1. Chronic atrial fibrillation with rapid ventricular rate. 2. Coronary artery disease. PLAN: I am going to put the patient on IV amiodarone. Continue the Xarelto. Once the patient converts to sinus rhythm, we can stop the IV Cardizem, put her on oral Cardizem and discharge her home. Given the multiple recurrent episodes of atrial fibrillation with rapid ventricular rate, the patient will benefit from ablation for A. fib or ablation of the AV node with pacemaker. I will refer the patient to an gravedigger. GWENDOLYN / TRISTAN: [id number] /
[2017-09-12] MEDS: AMIODARONE 450 MG in DEXTROSE 5% IN WATER 250 ML IV SCH ×4 (10:01→19:52)
[2017-09-12 10:55] LABS: T4, Free (Free Thyroxine) 1.17 ng/dL (0.78-2.19)
[2017-09-12] MEDS: MULTIVITAMINS, THERA 1 EACH TAB PO SCH (12:37)
[2017-09-12] MEDS: CHOLECALCIFEROL 1,000 UNIT TAB PO SCH (12:38)
[2017-09-12] MEDS: CYANOCOBALAMIN 500 MCG TAB PO SCH (12:38)
[2017-09-12] MEDS: MAGNESIUM OXIDE 400 MG TAB PO SCH (12:39)
[2017-09-12] MEDS: POTASSIUM CHLORIDE ER 10 MEQ TAB.ER.PRT PO SCH (14:30)
[2017-09-12] MEDS: FUROSEMIDE 20 MG TAB PO SCH (14:30)
--- NOTE | 2017-09-12 17:34 | P.PN ---
Subjective 70-year-old female admitted for atrial fibrillation with rapid ventricular rate. He A. fib is not well controlled yet patient was started on IV amiodarone. TSH is essentially within normal limits that 2 TSH levels 1 is low 1 is normal. Patient symptoms of shortness of breath did improve. Elevated white blood cell count is secondary to steroids when she came to ER. Patient doesn't have any wheeze today Constitutional: Denied any fatigue denied any fever. Cardio vascular: denied any chest pain, palpitations Gastrointestinal denied any nausea vomiting Pulmonary: Denied any shortness of breath cough Neurologic denied any new focal deficits Objective - Vital Signs Vital signs: Vital Signs Temp 97.1 F L 09/12/17 08:00 Pulse 124 H 09/12/17 13:36 Resp 18 09/12/17 08:00 BP 145/65 09/12/17 08:00 Pulse Ox 93 L 09/12/17 08:16 Intake & Output 09/11/17 09/12/17 09/12/17 18:59 06:59 18:59 Intake Total 570 540.5 Balance 570 540.5 Weight 90.718 kg 91.3 kg Intake: Intake, IV Titration 370 60.5 Amount Diltiazem 50 mg In Sodium 50 60.5 Chloride 0.9% 40 ml @ 10 MG/HR 10 mls/hr IV .Q5H MILAN Rx#:[id number] Sodium Chloride 0.9% 1, 320 000 ml @ 20 mls/hr IV . Q24H MILAN Rx#:[id number] Oral 200 480 Other: Voiding Method Toilet # Voids 1 2 # Bowel Movements 0 - Exam PHYSICAL EXAMINATION: GENERAL: The patient is alert and oriented x3, not in any acute distress. Well developed, well nourished. HEENT: Pupils are round and equally reacting to light. EOMI. No scleral icterus. No conjunctival pallor. Normocephalic, atraumatic. No pharyngeal erythema. No thyromegaly. CARDIOVASCULAR: S1 and S2 present. No murmurs, rubs, or gallops. Patient has irregularly irregular rhythm tachycardic. PULMONARY: Chest is clear to auscultation, no wheezing or crackles. ABDOMEN: Soft, nontender, nondistended, normoactive bowel sounds. No palpable organomegaly. MUSCULOSKELETAL: No joint swelling or deformity. EXTREMITIES: No cyanosis, clubbing, or pedal edema. NEUROLOGICAL: Gross neurological examination did not reveal any focal deficits. SKIN: No rashes. - Labs CBC & Chem 7: 09/12/17 05:54 09/12/17 05:54 Labs: Abnormal Lab Results - Last 24 Hours (Table) 09/12/17 09/12/17 Range/Units 05:54 05:54 WBC 21.2 H (3.8-10.6) k/uL Hgb 11.3 L (11.4-16.0) gm/dL MCHC 30.9 L (31.0-37.0) g/dL RDW 15.8 H (11.5-15.5) % Neutrophils # 19.5 H (1.3-7.7) k/uL Glucose 140 H (74-99) mg/dL TSH 0.291 L (0.465-4.680) mIU/L Assessment and Plan Plan: -Atrial fibrillation with rapid and regular rate patient precipitating factor is probably shortness of breath and wheezing, patient's levothyroxine was recently stopped TSH levels as mentioned above patient is presently on IV amiodarone replace magnesium Replace magnesium. Patient is on Xarelto -Hypomagnesemia magnesium was supplemented -COPD with minimal exacerbation, improved now -Coronary artery disease -Hypothyroidism recently was on levothyroxin which was discontinued
[2017-09-12] MEDS: SODIUM CHLORIDE 0.9% 1,000 ML IV SCH (19:53)
[2017-09-12] MEDS: ATORVASTATIN 40 MG TAB PO SCH (19:56)
[2017-09-12] MEDS: ASPIRIN 81 MG PO SCH (19:56)
[2017-09-12] MEDS: ARTIFICIAL TEARS-HYPROMELLOSE DROPS 15 ML BTL BOTH EYES PRN (20:00)
[2017-09-13] MEDS: DILTIAZEM 50 MG in SODIUM CHLORIDE 0.9% 40 ML IV SCH ×4 (01:01→17:23)
[2017-09-13] MEDS: IPRATROPIUM-ALBUTEROL 3 ML NEB INHALATION PRN ×5 (02:22→19:23)
[2017-09-13] MEDS: DOCUSATE 100 MG CAP PO SCH ×2 (08:51→19:57)
[2017-09-13] MEDS: FUROSEMIDE 20 MG TAB PO SCH (08:51)
[2017-09-13] MEDS: guaiFENesin 600 MG TABLET.ER PO SCH ×2 (08:52→19:57)
[2017-09-13] MEDS: POTASSIUM CHLORIDE ER 10 MEQ TAB.ER.PRT PO SCH (08:52)
[2017-09-13] MEDS: VIT A,C & E-LUTEIN-MINERALS 1 EACH TAB PO SCH ×2 (08:53→12:53)
[2017-09-13] MEDS: RIVAROXABAN 20 MG TAB PO SCH (08:53)
[2017-09-13] MEDS: ARTIFICIAL TEARS-HYPROMELLOSE DROPS 15 ML BTL BOTH EYES PRN (08:55)
[2017-09-13] MEDS: IPRATROPIUM 0.5 MG/2.5 ML NEBU INHALATION SCH ×3 (09:01→19:23)
[2017-09-13] MEDS: SYMBICORT 160-4.5 MCG INHALER INHALATION SCH ×2 (09:03→19:23)
[2017-09-13] MEDS: AMIODARONE 450 MG in DEXTROSE 5% IN WATER 250 ML IV SCH ×4 (09:08→11:07)
[2017-09-13] MEDS ORDERED: METOPROLOL TARTRATE 25 MG TAB PO STA (12:05)
--- NOTE | 2017-09-13 12:06 | P.PN ---
Subjective Progress Note Date: 09/13/17 Principal diagnosis: Atrial fibrillation This is a pleasant 73-year-old female patient with a past medical history significant for coronary artery disease and prior coronary artery angioplasty and stenting, chronic atrial fibrillation, as well as history of asthma, presented to the hospital complaining of shortness of breath. The patient was found to be in A. fib with RVR and she was started on Cardizem and drip. On follow-up with her today, she continues to be short of breath. As a matter of fact she does have bilateral expiratory wheezing on examination. She does also have bilateral lower extremities edema. The chest x-ray showed findings consistent with CHF. The BNP came in to be around 3000. The patient continues to be on Cardizem drip at 10 mg per hour. She is not on any AV donte justin agents at this point. I do feel that the patient does have a component of congestive heart failure in addition to her A. fib with RVR. Because of that, I'm going to DC the Lasix by mouth and start the patient on Lasix IV. We'll continue monitor the kidney function and electrolytes. Also I am going to add a small dose of metoprolol to the current medical regimen trying to wean her from the Cardizem drip and slow her heart rate. Objective - Vital Signs Vital signs: Vital Signs Temp 97.8 F 09/13/17 11:09 Pulse 120 H 09/13/17 11:54 Resp 16 09/13/17 11:09 BP 128/67 09/13/17 11:09 Pulse Ox 96 09/13/17 11:09 Intake & Output 09/12/17 09/13/17 09/13/17 18:59 06:59 18:59 Intake Total 982.424 325.825 750.667 Output Total 600 Balance 982.424 -274.175 750.667 Weight 98.3 kg Intake: Intake, IV Titration 262.424 325.825 273.667 Amount Amiodarone 450 mg In 199.424 50.576 250 Dextrose 5% in Water 250 ml @ 1 MG/MIN 33.33 mls/ hr IV .Q7H31M [facility] Rx#: [id number] Diltiazem 50 mg In Sodium 63.0 115.249 23.667 Chloride 0.9% 40 ml @ 10 MG/HR 10 mls/hr IV .Q5H [facility] Rx#:[id number] Sodium Chloride 0.9% 1, 160 000 ml @ 20 mls/hr IV . Q24H [facility] Rx#:[id number] Oral 720 477 Output: Urine 600 Other: Voiding Method Toilet Toilet # Voids 2 1 # Bowel Movements 1 - Constitutional General appearance: Present: no acute distress - Respiratory Respiratory: bilateral: wheezing - Cardiovascular Rhythm: irregularly irregular Heart sounds: normal: S1, S2 - Labs CBC & Chem 7: 09/12/17 05:54 09/12/17 05:54 Assessment and Plan Assessment: Assessment #1 atrial fibrillation with rapid ventricular response #2 congestive heart failure exacerbation secondary to diastolic dysfunction #3 coronary artery disease and prior angioplasty #4 multiple comorbid conditions. Plan #1 DC Lasix by mouth and start the patient on Lasix IV #2 continue the Cardizem drip to control the heart rate. I would add metoprolol to the current medical regimen. #3 follow-up with the patient and continue monitor the kidney function and electrolytes.
--- NOTE | 2017-09-13 12:48 | P.PN ---
Subjective 70-year-old female admitted for atrial fibrillation with rapid ventricular rate. He A. fib is not well controlled yet patient was started on IV amiodarone. TSH is essentially within normal limits that 2 TSH levels 1 is low 1 is normal. Patient symptoms of shortness of breath did improve. Elevated white blood cell count is secondary to steroids when she came to ER. Patient doesn't have any wheeze today 09/13/2017 Patient started is still not well-controlled metoprolol is being added and remains on amiodarone. Patient wanted me to test for uric acid as she is concerned about gouty attack. Patient does not have any symptoms of acute gout. Counseled that serum uric acid is not the diagnostic test for acute gouty attack. Patient had an episode of severe shortness of breath wheezing improved after coughing up a mucous plug her lungs sound clear because of which I do not believe patient will need systemic steroids although she is restricted requesting for systemic steroids. Constitutional: Denied any fatigue denied any fever. Cardio vascular: denied any chest pain, palpitations Gastrointestinal denied any nausea vomiting Pulmonary: Denied any shortness of breath cough Neurologic denied any new focal deficits Objective - Vital Signs Vital signs: Vital Signs Temp 97.8 F 09/13/17 11:09 Pulse 116 H 09/13/17 12:05 Resp 16 09/13/17 11:09 BP 128/67 09/13/17 11:09 Pulse Ox 96 09/13/17 11:09 Intake & Output 09/12/17 09/13/17 09/13/17 18:59 06:59 18:59 Intake Total 982.424 325.825 750.667 Output Total 600 Balance 982.424 -274.175 750.667 Weight 98.3 kg Intake: Intake, IV Titration 262.424 325.825 273.667 Amount Amiodarone 450 mg In 199.424 50.576 250 Dextrose 5% in Water 250 ml @ 1 MG/MIN 33.33 mls/ hr IV .Q7H31M [facility] Rx#: [id number] Diltiazem 50 mg In Sodium 63.0 115.249 23.667 Chloride 0.9% 40 ml @ 10 MG/HR 10 mls/hr IV .Q5H [facility] Rx#:[id number] Sodium Chloride 0.9% 1, 160 000 ml @ 20 mls/hr IV . Q24H [facility] Rx#:[id number] Oral 720 477 Output: Urine 600 Other: Voiding Method Toilet Toilet # Voids 2 1 # Bowel Movements 1 - Exam PHYSICAL EXAMINATION: GENERAL: The patient is alert and oriented x3, not in any acute distress. Well developed, well nourished. HEENT: Pupils are round and equally reacting to light. EOMI. No scleral icterus. No conjunctival pallor. Normocephalic, atraumatic. No pharyngeal erythema. No thyromegaly. CARDIOVASCULAR: S1 and S2 present. No murmurs, rubs, or gallops. Patient has irregularly irregular rhythm tachycardic. PULMONARY: Chest is clear to auscultation, no wheezing or crackles. ABDOMEN: Soft, nontender, nondistended, normoactive bowel sounds. No palpable organomegaly. MUSCULOSKELETAL: No joint swelling or deformity. EXTREMITIES: No cyanosis, clubbing, or pedal edema. NEUROLOGICAL: Gross neurological examination did not reveal any focal deficits. SKIN: No rashes. - Labs CBC & Chem 7: 09/12/17 05:54 09/12/17 05:54 Assessment and Plan Plan: -Atrial fibrillation with rapid and regular rate patient precipitating factor is probably shortness of breath and wheezing, patient's levothyroxine was recently stopped TSH levels as mentioned above patient is presently on IV amiodarone replace magnesium Replace magnesium. Patient is on Xarelto -Hypomagnesemia magnesium was supplemented -COPD with minimal exacerbation, improved now with inhaled steroids which will be continued -Coronary artery disease -Hypothyroidism recently was on levothyroxin which was discontinued
[2017-09-13] MEDS: FUROSEMIDE 10 MG/ML 4 ML VIAL IV SCH ×2 (12:49→17:24)
[2017-09-13] MEDS: CHOLECALCIFEROL 1,000 UNIT TAB PO SCH (12:53)
[2017-09-13] MEDS: MULTIVITAMINS, THERA 1 EACH TAB PO SCH (12:54)
[2017-09-13] MEDS: CYANOCOBALAMIN 500 MCG TAB PO SCH (12:54)
[2017-09-13] MEDS: MAGNESIUM OXIDE 400 MG TAB PO SCH (12:54)
[2017-09-13] MEDS: SODIUM CHLORIDE 0.9% 1,000 ML IV SCH ×2 (12:56→18:45)
[2017-09-13] MEDS: METOPROLOL TARTRATE 25 MG TAB PO SCH (19:57)
[2017-09-13] MEDS: ATORVASTATIN 40 MG TAB PO SCH (19:57)
[2017-09-13] MEDS: ASPIRIN 81 MG PO SCH (19:57)
[2017-09-13] MEDS: ALPRAZolam 0.25 MG TAB PO PRN (22:25)
[2017-09-14] MEDS: ACETAMINOPHEN TAB 325 MG TAB PO PRN ×2 (05:16→17:32)
[2017-09-14] MEDS: DILTIAZEM 50 MG in SODIUM CHLORIDE 0.9% 40 ML IV SCH ×4 (05:20→08:46)
[2017-09-14] MEDS: DOCUSATE 100 MG CAP PO SCH ×2 (08:21→20:14)
[2017-09-14] MEDS: FUROSEMIDE 10 MG/ML 4 ML VIAL IV SCH ×2 (08:21→20:14)
[2017-09-14] MEDS: METOPROLOL TARTRATE 25 MG TAB PO SCH ×2 (08:22→20:14)
[2017-09-14] MEDS: RIVAROXABAN 20 MG TAB PO SCH (08:22)
[2017-09-14] MEDS: VIT A,C & E-LUTEIN-MINERALS 1 EACH TAB PO SCH ×2 (08:22→20:14)
[2017-09-14] MEDS: POTASSIUM CHLORIDE ER 10 MEQ TAB.ER.PRT PO SCH (08:22)
[2017-09-14] MEDS: guaiFENesin 600 MG TABLET.ER PO SCH ×2 (08:22→20:14)
[2017-09-14] MEDS: IPRATROPIUM 0.5 MG/2.5 ML NEBU INHALATION SCH ×3 (08:35→20:55)
[2017-09-14] MEDS: MULTIVITAMINS, THERA 1 EACH TAB PO SCH (12:52)
[2017-09-14] MEDS: CHOLECALCIFEROL 1,000 UNIT TAB PO SCH (12:52)
[2017-09-14] MEDS: MAGNESIUM OXIDE 400 MG TAB PO SCH (12:52)
[2017-09-14] MEDS: DILTIAZEM ORAL 60 MG TAB PO SCH ×3 (12:52→20:15)
[2017-09-14] MEDS: CYANOCOBALAMIN 500 MCG TAB PO SCH (12:52)
[2017-09-14] MEDS: SODIUM CHLORIDE 0.9% 1,000 ML IV SCH ×2 (12:53→17:35)
--- NOTE | 2017-09-14 14:15 | P.PN ---
Subjective Progress Note Date: 09/14/17 This is a pleasant 72-year-old female who follows with Dr. Flynn in the office, she has known history of coronary artery disease and prior stent placement of the right coronary artery, hypertension, hyperlipidemia, asthma, COPD, hypothyroidism, paroxysmal atrial fibrillation. Patient was just recently discharged home from the hospital, admitted on this occasion with symptoms of shortness of breath and palpitations. She was found to be in atrial fibrillation with rapid ventricular response and was initiated on a Cardizem drip. Yesterday patient was noted still to be significantly short of breath as well as having significant peripheral edema. Chest x-ray showed findings consistent with congestive heart failure and her BNP came back to be around [address] Sousa had initiated her on IV Lasix yesterday. Her weight today is down 8 kg, she states that she feels 100% better than she has in quite some time. She does continue however to be in atrial fibrillation with a heart rate in the 90s to low 100s, and is still on IV Cardizem drip. Because of her persistence with A. fib with rapid ventricular response, patient was advised today by Dr. Currie to undergo a SELIN with subsequent cardioversion, the risks and the benefits were explained to the patient in detail. This will be scheduled tomorrow to be performed by Dr. Flynn. Objective - Vital Signs Vital signs: Vital Signs Temp 97.3 F L 09/14/17 11:28 Pulse 107 H 09/14/17 13:54 Resp 18 09/14/17 11:28 BP 98/60 09/14/17 11:28 Pulse Ox 91 L 09/14/17 11:28 Intake & Output 09/13/17 09/14/17 09/14/17 18:59 06:59 18:59 Intake Total 1280.667 61.5 462.833 Output Total 3300 2750 Balance -2019.333 -2688.5 462.833 Weight 90.5 kg Intake: Intake, IV Titration 563.667 61.5 22.833 Amount Amiodarone 450 mg In 250 Dextrose 5% in Water 250 ml @ 1 MG/MIN 33.33 mls/ hr IV .Q7H31M [facility] Rx#: [id number] Diltiazem 50 mg In Sodium 73.667 61.5 22.833 Chloride 0.9% 40 ml @ 10 MG/HR 10 mls/hr IV .Q5H [facility] Rx#:[id number] Sodium Chloride 0.9% 1, 240 000 ml @ 20 mls/hr IV . Q24H [facility] Rx#:[id number] Oral 717 440 Output: Urine 3300 2750 Other: Voiding Method Toilet Toilet # Voids 1 1 1 - Exam PHYSICAL EXAMINATION: GENERAL: 72-year-old female in no acute distress at the time of my examination HEENT: Head is atraumatic, normocephalic. Pupils equal, round. Sclera anicteric. Conjunctiva are clear. Mucous membranes of the mouth are moist. Neck is supple. There is no elevated jugular venous pressure.] bruit is heard. HEART EXAMINATION: Heart S1 and S2 irregularly irregular CHEST EXAMINATION: Lungs are clear to auscultation with mild diminished air entry to the bases, no wheezing heard today. ABDOMEN: Soft, nontender. Bowel sounds are heard. No organomegaly noted. EXTREMITIES: 2+ peripheral pulses with trace evidence of peripheral edema and no calf tenderness noted] NEUROLOGIC [atient is awake, alert and oriented ?-3.] . - Labs CBC & Chem 7: 09/12/17 05:54 09/12/17 05:54 Assessment and Plan Plan: Assessment and plan #1 atrial fibrillation with rapid ventricular response, paroxysmal #2 diastolic congestive heart failure acute on chronic #3 known history of coronary artery disease with prior PCI of the RCA #4 hypertension # 5 hypothyroidism #6 hyperlipidemia Plan We'll continue the patient on IV Lasix today. Discontinue IV Cardizem drip and start the patient on oral Cardizem. She will be scheduled to undergo SELIN and cardioversion tomorrow by Dr. Currie. The risks and benefits were explained to the patient in detail and she is willing to proceed. DNP note has been reviewed, I agree with a documented findings and plan of care. Patient was seen and examined.
--- NOTE | 2017-09-14 14:40 | P.PN ---
Subjective Progress Note Date: 09/14/17 Progress note being dictated for Dr. Yoon. Interval history:70-year-old female admitted for atrial fibrillation with rapid ventricular rate. He A. fib is not well controlled yet patient was started on IV amiodarone. TSH is essentially within normal limits that 2 TSH levels 1 is low 1 is normal. Patient symptoms of shortness of breath did improve. Elevated white blood cell count is secondary to steroids when she came to ER. Patient doesn't have any wheeze today 09/13/2017 Patient started is still not well-controlled metoprolol is being added and remains on amiodarone. Patient wanted me to test for uric acid as she is concerned about gouty attack. Patient does not have any symptoms of acute gout. Counseled that serum uric acid is not the diagnostic test for acute gouty attack. Patient had an episode of severe shortness of breath wheezing improved after coughing up a mucous plug her lungs sound clear because of which I do not believe patient will need systemic steroids although she is restricted requesting for systemic steroids. Constitutional: Denied any fatigue denied any fever. Cardio vascular: denied any chest pain, palpitations Gastrointestinal denied any nausea vomiting Pulmonary: Denied any shortness of breath cough Neurologic denied any new focal deficits 09/14/2017 remains in atrial fibrillation, heart rates 90s to low 100s, on Cardizem drip. Diuresing well on Lasix IV push with 24-hour I&O reflecting a negative fluid balance. Cardiology recommending SELIN, cardioversion tomorrow. Objective - Vital Signs Vital signs: Vital Signs Temp 97.3 F L 09/14/17 11:28 Pulse 107 H 09/14/17 13:54 Resp 18 09/14/17 11:28 BP 98/60 09/14/17 11:28 Pulse Ox 91 L 09/14/17 11:28 Intake & Output 09/13/17 09/14/17 09/14/17 18:59 06:59 18:59 Intake Total 1280.667 61.5 462.833 Output Total 3300 2750 Balance -2019.333 -2688.5 462.833 Weight 90.5 kg Intake: Intake, IV Titration 563.667 61.5 22.833 Amount Amiodarone 450 mg In 250 Dextrose 5% in Water 250 ml @ 1 MG/MIN 33.33 mls/ hr IV .Q7H31M [facility] Rx#: [id number] Diltiazem 50 mg In Sodium 73.667 61.5 22.833 Chloride 0.9% 40 ml @ 10 MG/HR 10 mls/hr IV .Q5H [facility] Rx#:[id number] Sodium Chloride 0.9% 1, 240 000 ml @ 20 mls/hr IV . Q24H [facility] Rx#:[id number] Oral 717 440 Output: Urine 3300 2750 Other: Voiding Method Toilet Toilet # Voids 1 1 1 - Exam GENERAL: The patient is alert and oriented x3, not in any acute distress. Well developed, well nourished. HEENT: Pupils are round and equally reacting to light. EOMI. No scleral icterus. No conjunctival pallor. Normocephalic, atraumatic. No pharyngeal erythema. No thyromegaly. CARDIOVASCULAR: S1 and S2 present. Irregular, mildly tachycardic. No murmurs, rubs, or gallops. Patient has irregularly irregular rhythm tachycardic. PULMONARY: Chest is clear to auscultation, no wheezing or crackles. ABDOMEN: Soft, nontender, nondistended, normoactive bowel sounds. No palpable organomegaly. MUSCULOSKELETAL: No joint swelling or deformity. EXTREMITIES: No cyanosis, clubbing; trace pedal edema. NEUROLOGICAL: Gross neurological examination did not reveal any focal deficits. SKIN: No rashes. - Labs CBC & Chem 7: 09/12/17 05:54 09/12/17 05:54 Assessment and Plan Assessment: -Atrial fibrillation with rapid and regular rate patient precipitating factor is probably shortness of breath and wheezing, patient's levothyroxine was recently stopped TSH levels as mentioned above patient is presently on IV amiodarone replace magnesium Replace magnesium. Patient is on Xarelto -Hypomagnesemia magnesium was supplemented -COPD with minimal exacerbation, component of Acute on chronic diastolic congestive heart failure -Coronary artery disease -Hypothyroidism recently was on levothyroxin which was discontinued - Plan: Continue current medication regime ,monitoring. Antiarrhythmics, Lasix as per cardiology. Close monitoring of renal function and electrolytes with repeat labs ordered for a.m. As mentioned above scheduled for SELIN and cardioversion tomorrow. The impression and plan of care has been dictated as directed. : I performed a history and examination of this patient, discussed the same with the dictator. I agree with the dictator's note ,documented as a scribe. Any additional findings or plans will be noted.
[2017-09-14] MEDS: IPRATROPIUM-ALBUTEROL 3 ML NEB INHALATION PRN ×2 (16:36→20:55)
[2017-09-14] MEDS: ATORVASTATIN 40 MG TAB PO SCH (20:13)
[2017-09-14] MEDS: ASPIRIN 81 MG PO SCH (20:13)
[2017-09-15 06:04] LABS: Basophils # (A) 0.1 k/uL (0-0.2); Basophils % (A) 1 %; Eosinophils # (A) 0.7 k/uL (0-0.7); Eosinophils % (A) 6 %; HCT 41.9 % (34.0-46.0); HGB 13.1 gm/dL (11.4-16.0); Lymphocytes # (A) 3.2 k/uL (1.0-4.8); Lymphocytes % (A) 28 %; MCH 25.7 pg (25.0-35.0); MCHC 31.3 g/dL (31.0-37.0); MCV 82.1 fL (80.0-100.0); Monocytes # (A) 0.8 k/uL (0-1.0); Monocytes % (A) 7 %; Neutrophils # (A) 6.4 k/uL (1.3-7.7); Neutrophils % (A) 55 %; Platelet Count 257 k/uL (150-450); RBC 5.11 m/uL (3.80-5.40); RDW 15.8 % (11.5-15.5); WBC 11.5 k/uL (3.8-10.6)
[2017-09-15 06:10] LABS: Calcium 9.7 mg/dL (8.4-10.2); Potassium 4.4 mmol/L (3.5-5.1)
[2017-09-15] MEDS: METOPROLOL TARTRATE 25 MG TAB PO SCH (06:10)
[2017-09-15] MEDS: DOCUSATE 100 MG CAP PO SCH (06:10)
[2017-09-15] MEDS: guaiFENesin 600 MG TABLET.ER PO SCH (06:11)
[2017-09-15] MEDS: VIT A,C & E-LUTEIN-MINERALS 1 EACH TAB PO SCH (06:11)
[2017-09-15] MEDS: RIVAROXABAN 20 MG TAB PO SCH (06:12)
[2017-09-15] MEDS: DILTIAZEM ORAL 60 MG TAB PO SCH (06:12)
[2017-09-15] MEDS: POTASSIUM CHLORIDE ER 10 MEQ TAB.ER.PRT PO SCH (06:14)
[2017-09-15] MEDS ORDERED: PROPOFOL 10 MG/ML 20 ML VIAL IV ONE (08:30)
[2017-09-15] MEDS ORDERED: LACTATED RINGERS 1,000 ML IV ONE (08:30)
[2017-09-15] MEDS ORDERED: LIDOCAINE 1% INJ 10MG/ML (20 ML MDV) ONE (08:30)
[2017-09-15] MEDS ORDERED: ALBUTEROL NEBULIZED 2.5 MG/3 ML INHALATION ONE (08:33)
[2017-09-15] MEDS: BENZOCAINE SPRAY 1 CAN MUCOUS MEM ONE ×2 (08:39→12:29)
[2017-09-15] MEDS: IPRATROPIUM 0.5 MG/2.5 ML NEBU INHALATION SCH ×2 (08:46→12:28)
[2017-09-15] MEDS ORDERED: METOPROLOL TARTRATE 50 MG TAB PO SCH (09:00)
[2017-09-15] MEDS ORDERED: FUROSEMIDE 40 MG TAB PO SCH (09:00)
[2017-09-15] MEDS ORDERED: ASPIRIN 325 MG TAB PO SCH (09:00)
[2017-09-15] MEDS ORDERED: IV FLUID CONTINUATION 1,000 ML IV ONE (09:11)
--- NOTE | 2017-09-15 09:15 | ECHOT ---
TRANSESOPHAGEAL ECHOCARDIOGRAM INDICATION: Chronic atrial fibrillation. PROCEDURE NOTE: After obtaining informed consent, transesophageal echocardiogram is performed in left lateral position using an Omni plane probe. Local and IV sedation were obtained by the clay machine operator. The patient tolerated the procedure well without any obvious immediate complications. FINDINGS: 1. There is a small echodense lesion within the left atrial appendage consistent with a diagnosis of thrombus. 2. Left atrium appears enlarged. 3. Right atrium and right ventricle seen within normal limits. 4. Left ventricle has normal size and systolic function. 5. Spontaneous echo contrast is noted within the left atrium and right atrium. 6. Interatrial septum: There is no evidence of [id number] shunt by color-flow Doppler or yqeda-qr-[id number] shunt by agitated saline contrast study. 7. Mitral valve is anatomically normal. There is mild to moderate central mitral regurgitation noted. 8. Aortic valve is free of stenosis or regurgitation. 9. There is moderate tricuspid regurgitation noted. CONCLUSIONS: 1. Small left atrial appendage thrombus noted. 2. Normal left ventricular function. 3. Mild to moderate mitral regurgitation noted. PLAN: I am going to cancel the cardioversion today. Continue the Xarelto and add aspirin to what she is on. Heart rates are well controlled. She is stable to be discharged home today. MMODL / IJN: [id number] /
[2017-09-15] MEDS: SODIUM CHLORIDE 0.9% 1,000 ML IV SCH (10:43)
[2017-09-15] MEDS: AMIODARONE 200 MG TAB PO SCH (10:43)
[2017-09-15] MEDS: MAGNESIUM OXIDE 400 MG TAB PO SCH (10:44)
[2017-09-15] MEDS: CYANOCOBALAMIN 500 MCG TAB PO SCH (10:44)
[2017-09-15] MEDS: CHOLECALCIFEROL 1,000 UNIT TAB PO SCH (10:44)
[2017-09-15] MEDS: MULTIVITAMINS, THERA 1 EACH TAB PO SCH (10:45)
[2017-09-15 11:56] VITALS: TEMP 96.2
[2017-09-15 11:58] VITALS: BP 115/58
[2017-09-15] MEDS: IPRATROPIUM-ALBUTEROL 3 ML NEB INHALATION PRN (12:08)
[2017-09-15 12:11] VITALS: RESP 18
[2017-09-15 12:27] VITALS: PULSE 80
--- NOTE | 2017-09-15 13:26 | P.DS ---
Providers Date of admission: 09/11/17 15:42 Expected date of discharge: 09/15/17 Attending physician: Myron Yoon Consults: 09/11/17 15:43 Consult Physician Routine Consulting Provider: Rajesh Flynn Consult Reason/Comments: Rapid atrial fibrillation Do you want consulting provider notified?: Yes Primary care physician: Nirali Elizabeth [facility] Course: Final DIagnoses: -Paroximal Atrial fibrillation with rapid and regular rate patient precipitating factor is probably shortness of breath and wheezing, patient's levothyroxine was recently stopped TSH levels as mentioned above patient is presently on IV amiodarone replace magnesium Replace magnesium. Patient is on Xarelto -Hypomagnesemia magnesium was supplemented -COPD with minimal exacerbation, component of Acute on chronic diastolic congestive heart failure -Coronary artery disease -Hypothyroidism recently was on levothyroxin which was discontinued -S/P SELIN:Small left atrial thrombus, normal LV function Hospital COurse:THis is a 70-year-old female admitted for atrial fibrillation with rapid ventricular rate. He A. fib is not well controlled yet patient was started on IV amiodarone. TSH is essentially within normal limits that is 0.291 , TSH levels is low normal.Free T4 1.17. Patient symptoms of shortness of breath did improve. Elevated white blood cell count is secondary to steroids when she came to ER. Patient doesn't have any wheeze today. 09/13/2017 Patient started is still not well-controlled metoprolol is being added and remains on amiodarone. Patient wanted me to test for uric acid as she is concerned about gouty attack. Patient does not have any symptoms of acute gout. Counseled that serum uric acid is not the diagnostic test for acute gouty attack. Patient had an episode of severe shortness of breath wheezing improved after coughing up a mucous plug her lungs sound clear because of which I do not believe patient will need systemic steroids although she is restricted requesting for systemic steroids. Constitutional: Denied any fatigue denied any fever. Cardio vascular: denied any chest pain, palpitations Gastrointestinal denied any nausea vomiting Pulmonary: Denied any shortness of breath cough Neurologic denied any new focal deficits 09/14/2017 remains in atrial fibrillation, heart rates 90s to low 100s, on Cardizem drip. Diuresing well on Lasix IV push with 24-hour I&O reflecting a negative fluid balance. Cardiology recommending SELIN, cardioversion tomorrow. Underwent SELIN, reporting small left atrial thrombus, normal LV function, Mild to moderate regurgitation.Cardioversion cancelled.Aspirin increased to 325mg daily in addition to Xarelto per Cardiology recomendations.Cleared for Discharge by cardiology.Patient is being discharged home in a stable condition with a guarded prognoses. Exam GENERAL: The patient is alert and oriented x3, not in any acute distress. CARDIOVASCULAR: S1 and S2 present. Irregular, mildly No murmurs, rubs, or gallops. PULMONARY: Chest is clear to auscultation, no wheezing or crackles. ABDOMEN: Soft, nontender, nondistended, normoactive bowel sounds. NEUROLOGICAL: Gross neurological examination did not reveal any focal deficits. The impression and plan of care has been dictated as directed. : I performed a history and examination of this patient, discussed the same with the dictator. I agree with the dictator's note ,documented as a scribe. Any additional findings or plans will be noted. Patient Condition at Discharge: Stable Plan - Discharge Summary Discharge Rx Participant: No New Discharge Prescriptions: New Artificial Tears-Hypromellose [Artificial Tear Drops] 1 drops BOTH EYES TID PRN bottle PRN Reason: Dry Eye(S) Aspirin 325 mg PO DAILY #30 tab Diltiazem Oral [Cardizem*] 60 mg PO TID #90 tab Metoprolol Tartrate [Lopressor] 50 mg PO BID #60 tab Potassium Chloride ER [K-Dur 10] 10 meq PO DAILY #30 tab.er.prt Furosemide [Lasix] 40 mg PO DAILY #30 tablet Continue Albuterol Sulfate [Ventolin HFA] 2 puff INHALATION RT-Q6H PRN PRN Reason: Shortness Of Breath Multivitamins, Thera [Multivitamin (formulary)] 1 tab PO DAILY Vit C/E/Zn/Coppr/Lutein/Zeaxan [Preservision Areds 2 Softgel] 1 cap PO BID Atorvastatin [Lipitor] 40 mg PO HS #30 tab Vitamin E 100 unit PO DAILY Magnesium Oxide [Mag-Ox] 250 mg PO DAILY Cyanocobalamin (Vitamin B-12) [Vitamin B-12] 1,000 mcg PO DAILY Cholecalciferol [Vitamin D3] 1,000 unit PO DAILY Budesonide [Pulmicort] 0.5 mg PO RT-BID guaiFENesin [Mucinex] 600 mg PO BID Docusate [Colace] 100 mg PO BID #60 cap Ipratropium Nebulized [Atrovent Nebulized] 0.5 mg INHALATION RT-TID #0 Amiodarone [Cordarone] 200 mg PO BID Rivaroxaban [Xarelto] 20 mg PO DAILY Discontinued Aspirin EC [Ecotrin Low Dose] 81 mg PO HS Discharge Medication List Albuterol Sulfate [Ventolin HFA] 2 puff INHALATION RT-Q6H PRN 08/11/13 [History] Multivitamins, Thera [Multivitamin (formulary)] 1 tab PO DAILY 05/31/14 [History ] Vit C/E/Zn/Coppr/Lutein/Zeaxan [Preservision Areds 2 Softgel] 1 cap PO BID 03/02 [History] Atorvastatin [Lipitor] 40 mg PO HS #30 tab 03/04/15 [Rx] Budesonide [Pulmicort] 0.5 mg PO RT-BID 08/30/17 [History] Cholecalciferol [Vitamin D3] 1,000 unit PO DAILY 08/30/17 [History] Cyanocobalamin (Vitamin B-12) [Vitamin B-12] 1,000 mcg PO DAILY 08/30/17 [ History] Magnesium Oxide [Mag-Ox] 250 mg PO DAILY 08/30/17 [History] Vitamin E 100 unit PO DAILY 08/30/17 [History] guaiFENesin [Mucinex] 600 mg PO BID 08/30/17 [History] Docusate [Colace] 100 mg PO BID #60 cap 09/07/17 [Rx] Ipratropium Nebulized [Atrovent Nebulized] 0.5 mg INHALATION RT-TID #0 09/07/17 [Rx] Amiodarone [Cordarone] 200 mg PO BID 09/11/17 [History] Rivaroxaban [Xarelto] 20 mg PO DAILY 09/11/17 [History] Artificial Tears-Hypromellose [Artificial Tear Drops] 1 drops BOTH EYES TID PRN bottle 09/15/17 [Rx] Aspirin 325 mg PO DAILY #30 tab 09/15/17 [Rx] Diltiazem Oral [Cardizem*] 60 mg PO TID #90 tab 09/15/17 [Rx] Furosemide [Lasix] 40 mg PO DAILY #30 tablet 09/15/17 [Rx] Metoprolol Tartrate [Lopressor] 50 mg PO BID #60 tab 09/15/17 [Rx] Potassium Chloride ER [K-Dur 10] 10 meq PO DAILY #30 tab.er.prt 09/15/17 [Rx] Follow up Appointment(s)/Referral(s): Nirali Elizabeth MD [Primary Care Provider] - 09/20/17 2:00 pm (Monday) Rajesh Flynn MD [STAFF PHYSICIAN] - 09/26/17 2:00 pm (Monday) Ambulatory/Diagnostic Orders: Complete Blood Count w/diff [LAB.AMB] Time Frame: 3 Days, Location: None Selected Patient Instructions/Handouts: A-fib (Atrial Fibrillation) (DC), Transesophageal Echocardiogram (DC), Safe Use of Anticoagulants (DC)
== END 2017-09-15 13:40 | disposition home or self-care (01) | DRG 308 ==
LOC: EC 13:00 → 6SEL 15:42
PROVIDERS: ADMIT Internal Medicine; ATTEND Internal Medicine
PROC: B246ZZ4 Ultrasonography of Right and Left Heart, Transesophageal (ICD-10-PCS; principal; 2017-09-15 08:30)
DX: I48.2 Chronic atrial fibrillation (principal); I50.33 Acute on chronic diastolic (congestive) heart failure; J44.1 Chronic obstructive pulmonary disease with (acute) exacerbation; T17.890A Other foreign object in other parts of respiratory tract causing asphyxiation, initial encounter; I08.1 Rheumatic disorders of both mitral and tricuspid valves; E83.42 Hypomagnesemia; I51.3 Intracardiac thrombosis, not elsewhere classified; I11.0 Hypertensive heart disease with heart failure; D72.829 Elevated white blood cell count, unspecified; T38.0X5A Adverse effect of glucocorticoids and synthetic analogues, initial encounter; E78.5 Hyperlipidemia, unspecified; I49.3 Ventricular premature depolarization; E03.9 Hypothyroidism, unspecified; I25.10 Atherosclerotic heart disease of native coronary artery without angina pectoris; I25.2 Old myocardial infarction; M10.9 Gout, unspecified; K44.9 Diaphragmatic hernia without obstruction or gangrene; M81.0 Age-related osteoporosis without current pathological fracture; Z79.01 Long term (current) use of anticoagulants; Z79.82 Long term (current) use of aspirin; Z79.51 Long term (current) use of inhaled steroids; Z79.899 Other long term (current) drug therapy; Z88.5 Allergy status to narcotic agent; Z88.2 Allergy status to sulfonamides; Z87.01 Personal history of pneumonia (recurrent); Z90.49 Acquired absence of other specified parts of digestive tract; Z95.5 Presence of coronary angioplasty implant and graft; Z90.710 Acquired absence of both cervix and uterus; Z87.891 Personal history of nicotine dependence; Z82.49 Family history of ischemic heart disease and other diseases of the circulatory system; Z80.3 Family history of malignant neoplasm of breast; Z82.3 Family history of stroke; Z82.5 Family history of asthma and other chronic lower respiratory diseases
CPT/HCPCS: 36415; 71046; 80048; 80053; 82550; 82553; 83735; 83880; 84439; 84443; 84484; 85025; 85610; 85730; 93005; 93312; 93320; 93325; 94640; 94760; 96365; 96366; 96368; 96376; 99291

== ENCOUNTER → 2017-11-23 | Day surgery (SDC) | payer MEDICARE ==
[2017-11-17 15:03] VITALS: BMI 39.9
[~2017-11-23] MED LIST: LIDOCAINE 1% (PF) 10MG/ML VIAL SQ ONE; MIDAZOLAM 2 MG/2 ML VIAL IV ONE; SODIUM CHLORIDE 0.9% 1,000 ML IV SCH
[2017-11-23 11:21] VITALS: BP 164/79; PULSE 55; RESP 18; TEMP 98
[2017-11-23] MEDS: ceFAZolin IN SWFI 2 GM/20 ML SYRINGE IVP ONE ×2 (12:53→13:10)
--- NOTE | 2017-11-23 13:35 | P.PCN ---
Preoperative Diagnosis: Loop monitor implant Primary physicians: Dr. Elizabeth Rail Splitter: Dr. Currie Indication: Recurrent presyncope while sitting, paroxysmal atrial fibrillation Patient was brought to the EP lab in a fasting state. Written informed consent was obtained prior to the procedure. The left pectoral area was prepped and draped per protocol. Intravenous antibiotic was administered preoperatively. A subcutaneous Loop monitor was implanted successfully and the wound was closed per protocol. The device was programmed to detect significant estrellita- arrhythmic and tachy-arrhythmic events, per protocol. Device and programming details: A. fib detection as well as Patient underwent EP procedure under conscious sedation/moderate sedation, monitoring of the level of consciousness and physiologic parameters including but not limited to vital signs and oxygenation. Patient tolerated the procedure well without any acute complications. Start time: 1250 Stop time: 1312
== END | disposition home or self-care (01) ==
LOC: CATHEP 10:46
PROVIDERS: ATTEND Internal Medicine Clinical Cardiac Electrophysiology
DX: R55 Syncope and collapse (principal); I48.0 Paroxysmal atrial fibrillation; I25.10 Atherosclerotic heart disease of native coronary artery without angina pectoris; I10 Essential (primary) hypertension; Z95.5 Presence of coronary angioplasty implant and graft; Z79.01 Long term (current) use of anticoagulants; Z79.82 Long term (current) use of aspirin; Z79.51 Long term (current) use of inhaled steroids; Z79.899 Other long term (current) drug therapy; Z88.5 Allergy status to narcotic agent; Z88.2 Allergy status to sulfonamides; Z87.891 Personal history of nicotine dependence
CPT/HCPCS: 33282; C1764; J2250; J2001; J0690

== ENCOUNTER → 2017-12-19 | Outpatient (CLI) | payer MEDICARE ==
--- NOTE | 2017-12-19 11:12 | XR ---
EXAMINATION TYPE: XR chest 2V DATE OF EXAM: 12/19/2017 COMPARISON: Chest x-ray September 11, 2017. CT chest August 21, 2017. HISTORY: Pneumonia progress study. TECHNIQUE: Frontal and lateral views of the chest are obtained. FINDINGS: The cardiac silhouette size is stable and mildly enlarged with atherosclerotic thoracic ao rta. Overlying loop recorder seen on current study. There is chronic emphysematous change with pers istent left basilar opacity anteriorly appears to correspond to prominent pericardial fat pad and adj acent scarring and/or chronic consolidation on CT. This has been present back to February 16, 2017 CT. Atherosclerotic thoracic aorta is seen. No new infiltrate is present. The osseous structures remain demineralized. IMPRESSION: Mild cardiomegaly and chronic changes without new acute pulmonary process.
== END | disposition home or self-care (01) ==
LOC: RADXRYALE 10:33
PROVIDERS: ATTEND Internal Medicine Sleep Medicine
DX: I51.7 Cardiomegaly (principal); R91.8 Other nonspecific abnormal finding of lung field
CPT/HCPCS: 71046

== ENCOUNTER 2018-01-09 08:21 | Day surgery (SDC) | payer MEDICARE ==
[2018-01-03 12:38] VITALS: BMI 40.4
[2018-01-09] MEDS ORDERED: MIDAZOLAM 2 MG/2 ML VIAL ONE (08:22)
[2018-01-09] MEDS ORDERED: fentaNYL (PF) 50 MCG/ML 2 ML AMP ONE ×2 (08:22→08:23)
[2018-01-09 09:14] VITALS: RESP 16; TEMP 97.7
[2018-01-09] MEDS: BENZOCAINE SPRAY 1 CAN MUCOUS MEM ONE ×2 (09:17→09:18)
[2018-01-09] MEDS ORDERED: fentaNYL (PF) 50 MCG/ML 2 ML AMP IVP ONE (09:18)
[2018-01-09] MEDS ORDERED: MIDAZOLAM 2 MG/2 ML VIAL IVP ONE (09:18)
[2018-01-09] MEDS ORDERED: SODIUM CHLORIDE 0.9% 500 ML 500 ML IV ONE (09:26)
[2018-01-09 09:57] VITALS: PULSE 53
[2018-01-09] MEDS ORDERED: SODIUM CHLORIDE 0.9% 1,000 ML IV SCH (10:00)
--- NOTE | 2018-01-09 10:16 | ECHOT ---
TRANSESOPHAGEAL ECHOCARDIOGRAM INDICATION: Chronic atrial fibrillation, rule out intracardiac thrombus. PROCEDURE NOTE: After obtaining informed consent, transesophageal echocardiogram was performed in left lateral position using an Omni plane probe. Local and IV sedation were obtained using intravenous Versed and fentanyl. Patient tolerated the procedure well without any obvious immediate complications. Patient received moderate conscious sedation. Total sedation time was 10 minutes. FINDINGS: 1. There is no intracardiac thrombus within the left atrial appendage, left atrium, right atrium, right ventricle or left ventricle. 2. Left ventricle has normal size and systolic function. 3. Mitral valve shows mild to moderate central mitral regurgitation. 4. There is mild tricuspid regurgitation. 5. Aortic valve is free of stenosis or regurgitation. 6. Interatrial septum, there is no evidence of [id number] shunt by color-flow Doppler or [id number] shunt by agitated saline contrast study. 7. There are mild atherosclerotic changes noted within the aorta. CONCLUSION: 1. No intracardiac thrombus. 2. Normal left ventricular function. 3. Mild to moderate mitral regurgitation. MMODL / IJN: [id number] /
[2018-01-09 10:37] VITALS: BP 131/60
== END 2018-01-09 10:52 | disposition home or self-care (01) ==
LOC: CATHCVL 08:21
PROVIDERS: ATTEND Internal Medicine Cardiovascular Disease
DX: I34.0 Nonrheumatic mitral (valve) insufficiency (principal); I48.2 Chronic atrial fibrillation; R55 Syncope and collapse; E78.5 Hyperlipidemia, unspecified; I10 Essential (primary) hypertension; I25.10 Atherosclerotic heart disease of native coronary artery without angina pectoris; F17.210 Nicotine dependence, cigarettes, uncomplicated; Z79.01 Long term (current) use of anticoagulants; Z79.82 Long term (current) use of aspirin; Z79.51 Long term (current) use of inhaled steroids; Z79.899 Other long term (current) drug therapy; Z88.5 Allergy status to narcotic agent; Z88.2 Allergy status to sulfonamides
CPT/HCPCS: 93312; 93320; 93325; J2250; J3010

== ENCOUNTER → 2018-01-24 | Outpatient (CLI) | payer MEDICARE ==
--- NOTE | 2018-01-24 16:14 | BD ---
EXAMINATION TYPE: Axial Bone Density DATE OF EXAM: 01/24/2018 COMPARISON: 2016 CLINICAL HISTORY: osteoporosis Height: 4'10 Weight: 206 FRAX RISK QUESTIONS: Glucocorticoids (More than 3mos): y (Ex: prednisone, prednisolone, methylprednisolone, dexamethasone, and hydrocortisone). History of Fracture in Adulthood: y Secondary Osteoporosis: 3. Menopause before 45: 4. Malnutrition: 5. Chronic liver disease: Rheumatoid Arthritis: Current Tobacco Use: RISK FACTORS HISTORY OF: History of Wrist Fracture: left When: 2003 Active: n Postmenopausal woman: y Poor Health: y MEDICATIONS: Prednisone or other steroids: y How Lon years Thyroid Medications: Which medication: Synthroid How Lon month Additional Medications: heart medicine, eyes Additional History: EXAM MEASUREMENTS: Bone mineral densitometry was performed using the FabZat System. Bone mineral density as measured about the Lumbar spine is: ----- L1-L4(G/cm2): 1.414 T Score Values are as follows: ----- L2: 0.5 ----- L3: 3.2 ----- L4: 3.1 ----- L1-L4: 2.0 Bone mineral density has: Increased 6.5% since study of: 09/30/2015 Bone mineral density about the R hip (g/cm2): 0.750 Bone mineral density about the L hip (g/cm2): 0.731 T Score values are as follows: -----R Neck: -2.1 -----L Neck: -2.2 -----R Total: -1.3 -----L Total: -1.1 Bone mineral density has: Decreased -5.0% since study of: 09/30/2015 IMPRESSION: Osteopenia (T Score between -2.5 and -1). There is slightly increased risk of fracture and the patient may be considered for treatment. Re-Screen 2-5 years. NOTE: T-SCORE=SD OF THE YOUNG ADULT MEAN.
--- NOTE | 2018-01-25 12:06 | MM ---
Reason for exam: screening (asymptomatic). Last mammogram was performed 1 year and 1 month ago. History: Patient is postmenopausal and has history of other cancer at age 59. Family history of premenopausal breast cancer in mother at age 40. MG 3D Screening Mammo W/Cad Bilateral CC and MLO view(s) were taken. Prior study comparison: December 29, 2016, bilateral MG 3d screening mammo w/cad. December 28, 2015, bilateral MG 3d screening mammo w/cad. There are scattered fibroglandular densities. No discrete abnormality. No significant new finding since most recent study. ASSESSMENT: Negative, BI-RAD 1 RECOMMENDATION: Routine screening mammogram of both breasts in 1 year.
== END | disposition home or self-care (01) ==
LOC: RADMAMWWP 12:50
PROVIDERS: ATTEND Internal Medicine
DX: Z12.31 Encounter for screening mammogram for malignant neoplasm of breast (principal); M85.88 Other specified disorders of bone density and structure, other site
CPT/HCPCS: 77063; 77067; 77080

== ENCOUNTER 2018-03-08 11:11 | Day surgery (SDC) | payer MEDICARE ==
[2018-03-08] MEDS ORDERED: SODIUM CHLORIDE 0.9% 1,000 ML IV ONE (11:44)
[2018-03-08] MEDS ORDERED: FUROSEMIDE 10 MG/ML 2 ML VIAL ONE (12:56)
[2018-03-08] MEDS ORDERED: SUCCINYLCHOLINE CHLORIDE 100 MG/5 ML SYR IV ONE (12:56)
[2018-03-08] MEDS ORDERED: MIDAZOLAM 2 MG/2 ML VIAL ONE (12:56)
[2018-03-08] MEDS ORDERED: PROTAMINE SULFATE 10 MG/ML 5 ML VIAL IV ONE (12:56)
[2018-03-08] MEDS ORDERED: ALBUTEROL INHALER 60 PUFF/8 GM INHALER INHALATION ONE (12:56)
[2018-03-08] MEDS ORDERED: PHENYLEPHRINE-0.9% NACL SYG 1 MG/10 ML SYRINGE ONE (12:56)
[2018-03-08] MEDS ORDERED: HEPARIN SODIUM,PORCINE 10,000 UNIT/ML 1 ML VIAL ONE (12:56)
[2018-03-08] MEDS ORDERED: ONDANSETRON 4 MG/2 ML VIAL ONE (12:56)
[2018-03-08] MEDS ORDERED: PROPOFOL 10 MG/ML 20 ML VIAL IV ONE (12:56)
[2018-03-08] MEDS ORDERED: LIDOCAINE 1% INJ 10MG/ML (20 ML MDV) ONE ×2 (12:56→13:06)
[2018-03-08] MEDS ORDERED: HEPARIN SOD,PORK IN 0.45% NACL 25,000 UNIT in 0.45% NACL 1 250ML.BAG IV ONE (13:45)
[2018-03-08] MEDS ORDERED: LIDOCAINE 1% INJ 10MG/ML (20 ML MDV) SQ ONE (13:55)
[2018-03-08] MEDS ORDERED: IOPAMIDOL-370 100ML BTL INJ ONE (16:14)
[2018-03-08] MEDS ORDERED: ACETAMINOPHEN TAB 325 MG TAB PO PRN (16:18)
[2018-03-08] MEDS ORDERED: IPRATROPIUM 0.5 MG/2.5 ML NEBU INHALATION PRN (16:28)
[2018-03-08] MEDS ORDERED: ACETAMINOPHEN IV (For NPO) 1,000 MG in EMPTY BAG 1 BAG IVPB ONE (16:30)
--- NOTE | 2018-03-08 16:46 | P.PCN ---
Preoperative Diagnosis: Diagnosis Atrial fibrillation, paroxysmal symptomatic, refractory to therapy Result Successful pulmonary vein isolation of all veins using cryo-ablation Complete entrance block in all 4 veins confirmed No evidence for phrenic nerve injury Esophageal deflection NO Patient came in sinus rhythm. Catheter-induced atrial fibrillation, somewhat organized Electrical cardioversion with a synchronized shock across the chest YES Atrial fibrillation was induced in the superior right atrium during catheter manipulation. The atrial fibrillation was fairly organized and with Cryoblation of the pulmonary veins it became even more organized. After completion of all 4 pulmonary veins mapping with the circular catheter revealed a very organized atrial tachycardia well outside the ostium of the left superior pulmonary vein If she has recurrences in the future then I would proceed with a roofline and further mapping for any residual atrial tachycardias Procedure details Patient was brought to the EP lab in a fasting state. Written informed consent was obtained prior to the procedure. Procedure performed under general anesthesia After initial muscle relaxant use, muscle relaxants were not given thereafter in order to assess phrenic nerve during procedure Patient prepped and draped as per protocol Full cryo-set up with standard preparation of the cryoablation tools done Femoral Venous access obtained on the right and left groins Venous and arterial Sheaths placed Diagnostic catheters for the high right atrium, phrenic nerve stimulation and pacing, His bundle, RV and coronary sinus placed Intracardiac echo catheter placed Long sheath placed in the right atrium Left and right transseptal catheterization performed under intracardiac echo guidance Intravenous heparin with aCT above 300 Later, catheter positioning and balloon positioning in the left atrium, under intracardiac echo guidance Comprehensive diagnostic EP study Drug infusion Coronary sinus pacing and recording Baseline measurements Sinus cycle length 781 ms, QRS 112 ms, W[place] interval 172 ms and QT interval 474 ms. AH 61 ms, HV 41 ms Atrial pacing performed from the high right atrium and the coronary sinus RV pacing Sinus recovery times at 600 504 100 ms were 1456 ms, 1680 ms and 1623 ms AV node Wenckebach block 380 ms CS pacing and recording RV pacing Transseptal catheterization performed RA pressure 15/8/12 LA pressure 34/9/21 Transseptal catheterization performed with standard sheath. The cryoablation sheath was then placed with an over the wire exchange without any acute complications. All 4 pulmonary veins were isolated in the following sequence: Left superior followed by left inferior followed by right superior followed by right inferior The cryo-ablation balloon was placed at the os of each vein 1.5 mL of IV dye was injected to confirm an occluded vein Goal during cryoablation was to achieve complete occlusion of the pulmonary vein , achieve -30C at 30 seconds and achieve -40C at 60 seconds and a time to affect of less than 60-90 seconds, . If not the balloon was repositioned to obtain this result After completion of Cryoblation with durations from 180-240 seconds, entrance block was confirmed with the Attain circular catheter in a roving fashion around the antrum of the pulmonary veins Phrenic nerve pacing was performed from the SVC, right innominate vein area and diaphragm voltage was monitored. Diaphragmatic contractions were also monitored manually for strength of contraction. Parameter goals for each cryo freeze -30C by 30 seconds -40C by 60 seconds Mediated between minus 40-55C Thaw time greater than 10 seconds Balloon visualized by intracardiac echo to ensure that the proximal one third was within the left atrium/antrum The esophagus was intubated. Esophageal Temperature monitoring with a CIRCA catheter formed. Esophageal deflection for hypothermia of the esophagus below 32C Left superior pulmonary vein Time to effect 37 seconds, total of 4 minutes cryoablation complete isolation Left inferior pulmonary vein 3 minute followed by 2 minutes of Cryoblation complete isolation Right superior pulmonary vein, during phrenic nerve pacing 3 minute followed by 2 minutes complete isolation Right inferior pulmonary vein, during phrenic nerve pacing 2 branches of the right inferior pulmonary vein poultice selectively engaged and ablated. First cryoablation for 3 minutes which also took care of the inferior branch. Additional 100 seconds for the inferior branch complete isolation At the end of the procedure the Achieve catheter was once again used to check for entrance block Phrenic nerve stimulation was performed to confirm diaphragmatic stimulation the end of the procedure Cine fluoroscopy was performed at the very end of the procedure to confirm movement of both diaphragms with inspiration and expiration At the end of the procedure the patient was extubated Heparin was reversed Venous sheaths were removed and hemostasis assured Procedures performed (PVI - CRYO Ablation) Invasive hemodynamic monitoring while general anesthesia, right femoral arterial line for monitoring and sampling Comprehensive diagnostic EP study CS pacing and recording Left and right transseptal catheterization Catheter the mapping of the tachycardia (NOT 3D mapping) Intracardiac echocardiography Pulmonary vein isolation with transseptal and comprehensive EPS, [address]108 Anesthesia: GETA Condition: stable Disposition: floor
--- NOTE | 2018-03-08 16:52 | P.DS ---
Providers Attending physician: Ismael Trimble Primary care physician: Nirali [facility] Course: Impression Symptomatic paroxysmal atrial fibrillation drug refractory Successful antral isolation of the pulmonary veins with cryoablation Past history of left atrial appendage thrombus hence an aspirin and xarelto Plan Continue anticoagulation continue 100 mg of amiodarone and follow with Dr. Currie in 1 week postprocedure Patient Condition at Discharge: Stable Plan - Discharge Summary Discharge Rx Participant: No New Discharge Prescriptions: Continue Albuterol Sulfate [Ventolin HFA] 2 puff INHALATION RT-Q6H PRN PRN Reason: Shortness Of Breath Multivitamins, Thera [Multivitamin (formulary)] 1 tab PO DAILY Vit C/E/Zn/Coppr/Lutein/Zeaxan [Preservision Areds 2 Softgel] 1 cap PO BID Atorvastatin [Lipitor] 40 mg PO HS #30 tab Magnesium Oxide [Mag-Ox] 250 mg PO DAILY Cyanocobalamin (Vitamin B-12) [Vitamin B-12] 1,000 mcg PO DAILY Cholecalciferol [Vitamin D3] 1,000 unit PO DAILY Budesonide [Pulmicort] 0.5 mg PO RT-BID guaiFENesin [Mucinex] 600 mg PO BID Ipratropium Nebulized [Atrovent Nebulized 0.2 MG/ML] 0.5 mg INHALATION RT- TID #0 Amiodarone [Cordarone] 100 mg PO DAILY Rivaroxaban [Xarelto] 20 mg PO DAILY Artificial Tears-Hypromellose [Artificial Tear Drops] 1 drops BOTH EYES TID PRN bottle PRN Reason: Dry Eye(S) Furosemide [Lasix] 40 mg PO DAILY #30 tablet Docusate [Colace] 100 mg PO BID PRN PRN Reason: Constipation Potassium Chloride ER [K-Dur 10] 20 meq PO DAILY Aspirin 325 mg PO HS Levothyroxine Sodium [Synthroid] 50 mcg PO DAILY Discharge Medication List Albuterol Sulfate [Ventolin HFA] 2 puff INHALATION RT-Q6H PRN 08/11/13 [History] Multivitamins, Thera [Multivitamin (formulary)] 1 tab PO DAILY 05/31/14 [History ] Vit C/E/Zn/Coppr/Lutein/Zeaxan [Preservision Areds 2 Softgel] 1 cap PO BID 03/02 [History] Atorvastatin [Lipitor] 40 mg PO HS #30 tab 03/04/15 [Rx] Budesonide [Pulmicort] 0.5 mg PO RT-BID 08/30/17 [History] Cholecalciferol [Vitamin D3] 1,000 unit PO DAILY 08/30/17 [History] Cyanocobalamin (Vitamin B-12) [Vitamin B-12] 1,000 mcg PO DAILY 08/30/17 [ History] Magnesium Oxide [Mag-Ox] 250 mg PO DAILY 08/30/17 [History] guaiFENesin [Mucinex] 600 mg PO BID 08/30/17 [History] Ipratropium Nebulized [Atrovent Nebulized 0.2 MG/ML] 0.5 mg INHALATION RT-TID # 0 09/07/17 [Rx] Amiodarone [Cordarone] 100 mg PO DAILY 09/11/17 [History] Rivaroxaban [Xarelto] 20 mg PO DAILY 09/11/17 [History] Artificial Tears-Hypromellose [Artificial Tear Drops] 1 drops BOTH EYES TID PRN bottle 09/15/17 [Rx] Furosemide [Lasix] 40 mg PO DAILY #30 tablet 09/15/17 [Rx] Docusate [Colace] 100 mg PO BID PRN 11/17/17 [History] Potassium Chloride ER [K-Dur 10] 20 meq PO DAILY 11/17/17 [History] Aspirin 325 mg PO HS 11/23/17 [History] Levothyroxine Sodium [Synthroid] 50 mcg PO DAILY 01/03/18 [History] Follow up Appointment(s)/Referral(s): Rajesh Flynn MD [STAFF PHYSICIAN] - 1 Week Activity/Diet/Wound Care/Special Instructions: Post EP study - Ablation instructions 1. Keep access sites dry for 2 days. 2. No heavy lifting or straining for 2 days. 3. Avoid bending the hips repeatedly for 2 days. 4. You may go up and down stairs slowly Call if the following is noted 1. Bleeding, increasing swelling or pain at the access sites. 2. Increasing chest discomfort, especially upon taking a deep breath. 3. Increasing shortness of breath, at rest or with exertion. 4. Undue cough / phlegm 5. Difficulty or pain while swallowing. 6. Pain or change in color in the extremities. 7. Fever, chills, rigors. 8. Increasing headache or neurologic symptoms. 9. Dizziness, fainting, palpitations Continue amiodarone 100 mg by mouth daily and continue xarelto Discharge Disposition: HOME SELF-CARE
--- NOTE | 2018-03-08 17:45 | P.PCN ---
Preoperative Diagnosis: Diagnosis Cardiomyopathy Dual-chamber biventricular ICD Procedures performed Any fluoroscopy of the leads Biventricular ICD testing and anesthesia were/defibrillation level testing Bi V ICD interrogation and reprogramming Cinefluoroscopy of the leads was performed rate atrial lead in right atrial appendage LV lead,*fix, [employer], in the posterior lateral vein Dual coil ICD lead no fractures or breaks Atrial pacing impedance 456 ohms, RV pacing impedance 380 ohms and LV pacing impedance 390 ohms RV coil 47 ohms, SVC coil 60 ohms Atrial pacing threshold 1 warted 0.4 ms, RV pacing threshold 0.9 V at 0.4 ms and LV pacing threshold 1.3 V at 1 ms Defibrillation level testing under anesthesia. VF induced. VF detected appropriately without any dropouts with a charge time of 2.1 seconds shocking impedance 48 ohms no post shock noise Device was then reprogrammed, ventricular tachycardia monitoring zone 150 beats a minute, VT zone for therapy 176 beats a minute VF zone 214 beats a minute appropriate antitachycardia pacing cardioversion and defibrillation programmed pacing parameter changes made increase sensor rate Impression Cinefluoroscopy of biventricular ICD leads within normal limits no fractures or breaks noted DFT at about 10 J Appropriate sensing of ventricular fibrillation Biventricle ICD interrogated and reprogrammed
[2018-03-08 20:32] VITALS: BMI 41.5
[2018-03-08] MEDS ORDERED: ASPIRIN 325 MG TAB PO SCH (21:00)
[2018-03-08] MEDS ORDERED: ATORVASTATIN 40 MG TAB PO SCH (21:00)
[2018-03-08] MEDS: IPRATROPIUM 0.5 MG/2.5 ML NEBU INHALATION SCH (21:08)
[2018-03-08] MEDS: HYDROcodone/APAP 5-325MG 1 EACH TAB PO PRN (22:00)
[2018-03-09 06:04] VITALS: TEMP 98.4
[2018-03-09] MEDS ORDERED: LEVOTHYROXINE 50 MCG TAB PO SCH (06:30)
[2018-03-09] MEDS: SODIUM CHLORIDE 0.9% 1,000 ML IV SCH ×2 (06:56→09:14)
[2018-03-09] MEDS: IPRATROPIUM 0.5 MG/2.5 ML NEBU INHALATION SCH ×2 (08:46→12:06)
[2018-03-09] MEDS ORDERED: RIVAROXABAN 20 MG TAB PO SCH (09:00)
[2018-03-09] MEDS ORDERED: POTASSIUM CHLORIDE ER 20 MEQ TAB.ER PO SCH (09:00)
[2018-03-09] MEDS ORDERED: FUROSEMIDE 40 MG TAB PO SCH (09:00)
[2018-03-09] MEDS ORDERED: AMIODARONE 100 MG TAB PO SCH (09:00)
[2018-03-09] MEDS: HYDROcodone/APAP 5-325MG 1 EACH TAB PO PRN (13:37)
[2018-03-09 14:02] VITALS: RESP 18
[2018-03-09 18:09] VITALS: BP 127/70; PULSE 87
== END 2018-03-09 18:17 | disposition home or self-care (01) ==
LOC: CATHEP 11:11 → 3SCARD 16:13 → CATHEP 03-09 18:17
PROVIDERS: ATTEND Internal Medicine Clinical Cardiac Electrophysiology
DX: I48.0 Paroxysmal atrial fibrillation (principal); Z45.02 Encounter for adjustment and management of automatic implantable cardiac defibrillator; I42.9 Cardiomyopathy, unspecified; R94.31 Abnormal electrocardiogram [ECG] [EKG]; R55 Syncope and collapse; E78.5 Hyperlipidemia, unspecified; I10 Essential (primary) hypertension; I25.10 Atherosclerotic heart disease of native coronary artery without angina pectoris; J44.9 Chronic obstructive pulmonary disease, unspecified; Z95.5 Presence of coronary angioplasty implant and graft; Z99.81 Dependence on supplemental oxygen; Z79.01 Long term (current) use of anticoagulants; Z79.82 Long term (current) use of aspirin; Z79.51 Long term (current) use of inhaled steroids; Z79.899 Other long term (current) drug therapy; Z88.5 Allergy status to narcotic agent; Z88.2 Allergy status to sulfonamides; Z87.891 Personal history of nicotine dependence
CPT/HCPCS: 94640 ×3; 85347; 93662; 93609; 93656; C1894 ×3; C1769 ×4; C1730 ×2; C1759; C1893; C1733; C1766; J2250; J2720; J1644 ×2; J1940; J2405; J2001; J2370; J0330; J2704; Q9967

== ENCOUNTER 2018-03-13 05:29 | Inpatient (IN) | payer MEDICARE ==
[2018-03-13] MEDS ORDERED: SODIUM CHLORIDE 0.9% 1,000 ML IV ONE (05:44)
[2018-03-13] MEDS ORDERED: DILTIAZEM DRIP BOLUS FROM BAG 1 MG SOLN IV ONE (05:44)
--- NOTE | 2018-03-13 05:47 | ED ---
General Adult HPI - General Chief complaint: Chest Pain Stated complaint: palpitations Time Seen by Provider: 03/13/18 05:36 Source: patient, EMS Mode of arrival: EMS Limitations: no limitations - History of Present Illness Initial comments: Is a 72-year-old female to history of paroxysmal atrial fibrillation or presents here department for palpitations and a cold sweat. She states that she woke up this morning with these symptoms. She states that they're consistent with her atrial fibrillation the past per she states that she is on a half a tab of amiodarone which she has been compliant with. She also took a Cardizem tab this morning when she felt like she was in atrial fibrillation. She denies any chest pain. She does state that she's been having some cough productive of green sputum however no significant shortness of breath. She denies history of CHF. No lightheadedness or syncope. He denies any nausea or vomiting. No other acute complaints. Of note she did recently have an ablation performed a few days ago. - Related Data Home Medications Medication Instructions Recorded Confirmed Albuterol Sulfate [Ventolin HFA] 2 puff INHALATION RT-Q6H PRN 08/11/13 03/08/18 Multivitamins, Thera [Multivitamin 1 tab PO DAILY 05/31/14 03/08/18 (formulary)] Vit C/E/Zn/Coppr/Lutein/Zeaxan 1 cap PO BID 03/02/15 03/08/18 [Preservision Areds 2 Softgel] Budesonide [Pulmicort] 0.5 mg PO RT-BID 08/30/17 03/08/18 Cholecalciferol [Vitamin D3] 1,000 unit PO DAILY 08/30/17 03/08/18 Cyanocobalamin (Vitamin B-12) 1,000 mcg PO DAILY 08/30/17 03/08/18 [Vitamin B-12] Magnesium Oxide [Mag-Ox] 250 mg PO DAILY 08/30/17 03/08/18 guaiFENesin [Mucinex] 600 mg PO BID 08/30/17 03/08/18 Amiodarone [Cordarone] 100 mg PO DAILY 09/11/17 03/08/18 Rivaroxaban [Xarelto] 20 mg PO DAILY 09/11/17 03/08/18 Docusate [Colace] 100 mg PO BID PRN 11/17/17 03/08/18 Potassium Chloride ER [K-Dur 10] 20 meq PO DAILY 11/17/17 03/08/18 Aspirin 325 mg PO HS 11/23/17 03/08/18 Levothyroxine Sodium [Synthroid] 50 mcg PO DAILY 01/03/18 03/08/18 Previous Rx's Medication Instructions Recorded Atorvastatin [Lipitor] 40 mg PO HS #30 tab 03/04/15 Ipratropium Nebulized [Atrovent 0.5 mg INHALATION RT-TID #0 09/07/17 Nebulized 0.2 MG/ML] Artificial Tears-Hypromellose 1 drops BOTH EYES TID PRN bottle 09/15/17 [Artificial Tear Drops] Furosemide [Lasix] 40 mg PO DAILY #30 tablet 09/15/17 Allergies Allergy/AdvReac Type Severity Reaction Status Date / Time codeine Allergy Itching Verified 03/01/18 10:39 Review of Systems ROS Statement: Those systems with pertinent positive or pertinent negative responses have been documented in the HPI. ROS Other: All systems not noted in ROS Statement are negative. Past Medical History Past Medical History: Atrial Fibrillation, Asthma, Coronary Artery Disease (CAD) , Cancer, COPD, Myocardial Infarction (ID), Osteoarthritis (OA), Pneumonia, Thyroid Disorder Additional Past Medical History / Comment(s): See Dr Trimble's H&P,Gout, hiatal hernia, MACULAR DEGENERATION, SKIN CANCER, degenerative disc disease, osteoporosis Last Myocardial Infarction Date:: 2011 History of Any Multi-Drug Resistant Organisms: None Reported Past Surgical History: Ablation, Cholecystectomy, Heart Catheterization With Stent, Hysterectomy, Orthopedic Surgery, Tonsillectomy Additional Past Surgical History / Comment(s): right shoulder, left wrist. Thyroid Nodule removed,cataracts, LOOP RECORDER-11/23/17 CHRIO ABLATION Feb WITH CARDIOVERTION Past Anesthesia/Blood Transfusion Reactions: No Reported Reaction Date of Last Stent Placement:: 2011 Type of Cardiac Device: Loop Device Placement Date:: 11/23/17 Past Psychological History: No Psychological Hx Reported Smoking Status: Former smoker Past Alcohol Use History: None Reported Past Drug Use History: None Reported - Past Family History Mother Family Medical History: Cancer, Congestive Heart Failure (CHF), Myocardial Infarction (ID), Pneumonia, Pulmonary Embolus Additional Family Medical History / Comment(s): breast CA Father Family Medical History: CVA/TIA, Myocardial Infarction (ID) General Exam - General Exam Comments Initial Comments: Constitutional: Awake alert Appears comfortable Head: Normocephalic atraumatic Eyes: no conjunctival injection No scleral icterus EOMI Neck: No JVD Supple Heart: Regularly irregular rhythm with tachycardia normal S1-S2 no murmurs Lungs: Clear to auscultation bilaterally No wheezing No rales Abdomen: Soft nondistended nontender Extremities: Non edematous DP pulses intact Radial pulses intact Neuro: A&Ox3 No focal neurologic deficits Psych: Appropriate mood and affect Limitations: no limitations Course Vital Signs 03/13/18 03/13/18 03/13/18 05:33 06:34 06:35 Temperature 98.0 F Pulse Rate 137 H 131 H Pulse Rate [ 144 H [employer] ] Respiratory 23 20 Rate Blood Pressure 128/70 104/62 O2 Sat by Pulse 93 L 96 Oximetry 03/13/18 03/13/18 06:40 07:22 Temperature Pulse Rate 126 H 113 H Pulse Rate [ [employer] ] Respiratory 22 18 Rate Blood Pressure 104/62 121/89 O2 Sat by Pulse 97 97 Oximetry EKG Findings - EKG Comments: EKG Findings:: EKG showing it or fibrillation with a rate of 143. There are some ST depressions laterally V5 and V6. No T-wave inversions. QTC is 487. Other intervals are. No ectopy. Medical Decision Making - Medical Decision Making Is a 72-year-old female to history of paroxysmal atrial fibrillation who presents emergent department for A. fib with RVR. The patient was also found to have an an STEMI. She was started on Cardizem drip and also given metoprolol with better control of her heart rate. Heparin drip was started. The patient will be admitted for cardiology evaluation. The patient was updated and agrees. All questions answered. Dr. Tanner accepts the admission. - Lab Data Result diagrams: 03/13/18 06:10 03/13/18 06:10 Lab Results 03/13/18 03/13/18 03/13/18 Range/Units 06:10 06:10 06:10 WBC (3.8-10.6) k/uL RBC (3.80-5.40) m/uL Hgb (11.4-16.0) gm/dL Hct (34.0-46.0) % MCV (80.0-100.0) fL MCH (25.0-35.0) pg MCHC (31.0-37.0) g/dL RDW (11.5-15.5) % Plt Count (150-450) k/uL Neutrophils % % Lymphocytes % % Monocytes % % Eosinophils % % Basophils % % Neutrophils # (1.3-7.7) k/uL Lymphocytes # (1.0-4.8) k/uL Monocytes # (0-1.0) k/uL Eosinophils # (0-0.7) k/uL Basophils # (0-0.2) k/uL Anisocytosis PT 10.7 (9.0-12.0) sec INR 1.0 (<1.2) APTT 25.7 (22.0-30.0) sec Sodium 137 (137-145) mmol/L Potassium 4.1 (3.5-5.1) mmol/L Chloride 103 (98-107) mmol/L Carbon Dioxide 26 (22-30) mmol/L Anion Gap 8 mmol/L BUN 24 H (7-17) mg/dL Creatinine 0.97 (0.52-1.04) mg/dL Est GFR (CKD-EPI)AfAm 68 (>60 ml/min/1.73 sqM) Est GFR (CKD-EPI)NonAf 59 (>60 ml/min/1.73 sqM) Glucose 115 H (74-99) mg/dL Calcium 9.5 (8.4-10.2) mg/dL Magnesium 1.8 (1.6-2.3) mg/dL Total Bilirubin 0.4 (0.2-1.3) mg/dL AST 46 H (14-36) U/L ALT 32 (9-52) U/L Alkaline Phosphatase 113 (38-126) U/L CK-MB (CK-2) 0.8 (0.0-2.4) ng/mL Troponin I 0.422 H* (0.000-0.034) ng/mL Total Protein 6.6 (6.3-8.2) g/dL Albumin 3.5 (3.5-5.0) g/dL TSH 5.740 H (0.465-4.680) mIU/L 03/13/18 Range/Units 06:10 WBC 8.0 (3.8-10.6) k/uL RBC 4.07 (3.80-5.40) m/uL Hgb 10.8 L (11.4-16.0) gm/dL Hct 34.0 (34.0-46.0) % MCV 83.6 (80.0-100.0) fL MCH 26.6 (25.0-35.0) pg MCHC 31.8 (31.0-37.0) g/dL RDW 16.3 H (11.5-15.5) % Plt Count 250 (150-450) k/uL Neutrophils % 67 % Lymphocytes % 17 % Monocytes % 7 % Eosinophils % 5 % Basophils % 1 % Neutrophils # 5.4 (1.3-7.7) k/uL Lymphocytes # 1.4 (1.0-4.8) k/uL Monocytes # 0.6 (0-1.0) k/uL Eosinophils # 0.4 (0-0.7) k/uL Basophils # 0.1 (0-0.2) k/uL Anisocytosis Slight PT (9.0-12.0) sec INR (<1.2) APTT (22.0-30.0) sec Sodium (137-145) mmol/L Potassium (3.5-5.1) mmol/L Chloride (98-107) mmol/L Carbon Dioxide (22-30) mmol/L Anion Gap mmol/L BUN (7-17) mg/dL Creatinine (0.52-1.04) mg/dL Est GFR (CKD-EPI)AfAm (>60 ml/min/1.73 sqM) Est GFR (CKD-EPI)NonAf (>60 ml/min/1.73 sqM) Glucose (74-99) mg/dL Calcium (8.4-10.2) mg/dL Magnesium (1.6-2.3) mg/dL Total Bilirubin (0.2-1.3) mg/dL AST (14-36) U/L ALT (9-52) U/L Alkaline Phosphatase (38-126) U/L CK-MB (CK-2) (0.0-2.4) ng/mL Troponin I (0.000-0.034) ng/mL Total Protein (6.3-8.2) g/dL Albumin (3.5-5.0) g/dL TSH (0.465-4.680) mIU/L Disposition Clinical Impression: Atrial fibrillation with RVR, NSTEMI (non-ST elevated myocardial infarction) Disposition: ADMITTED IP TO THIS HOSP Condition: Stable Referrals: Nirali Elizabeth MD [Primary Care Provider] - 1-2 days
[2018-03-13] MEDS: SODIUM CHLORIDE 0.9% 1,000 ML IV SCH ×2 (06:09→21:51)
[2018-03-13] MEDS: DILTIAZEM 50 MG in SODIUM CHLORIDE 0.9% 40 ML IV SCH ×2 (06:12→19:41)
[2018-03-13 06:27] LABS: Anisocytosis Slight; Basophils # (A) 0.1 k/uL (0-0.2); Basophils % (A) 1 %; Eosinophils # (A) 0.4 k/uL (0-0.7); Eosinophils % (A) 5 %; HGB 10.8 gm/dL (11.4-16.0); Lymphocytes # (A) 1.4 k/uL (1.0-4.8); Lymphocytes % (A) 17 %; MCH 26.6 pg (25.0-35.0); MCHC 31.8 g/dL (31.0-37.0); MCV 83.6 fL (80.0-100.0); Monocytes # (A) 0.6 k/uL (0-1.0); Monocytes % (A) 7 %; Neutrophils # (A) 5.4 k/uL (1.3-7.7); Neutrophils % (A) 67 %; Platelet Count 250 k/uL (150-450); RBC 4.07 m/uL (3.80-5.40); RDW 16.3 % (11.5-15.5)
--- NOTE | 2018-03-13 06:28 | XR ---
EXAM: XR Chest, 1 View CLINICAL HISTORY: ITS.REASON XR Reason: chest palpitations TECHNIQUE: Frontal view of the chest. COMPARISON: 12/19/17 FINDINGS: Lungs: Bilateral lower lobe airspace opacities. Pleural space: Possible small left pleural effusion. No pneumothorax. Heart: Cardiomegaly with pulmonary venous congestion and interstitial thickening. Mediastinum: Aortic atherosclerosis.. Bones/joints: Unremarkable. IMPRESSION: 1. Cardiomegaly with pulmonary venous congestion and interstitial prominence which could be related to edema. Bilateral lower lobe airspace disease which could be related to edema or other infiltrate as well as atelectasis. 2. Possible small left pleural effusion.
[2018-03-13 06:37] LABS: Albumin 3.5 g/dL (3.5-5.0); Calcium 9.5 mg/dL (8.4-10.2); Magnesium 1.8 mg/dL (1.6-2.3); Potassium 4.1 mmol/L (3.5-5.1); Total Bilirubin 0.4 mg/dL (0.2-1.3); Total Protein 6.6 g/dL (6.3-8.2)
[2018-03-13 06:53] LABS: Partial Thromboplastin Time 25.7 sec (22.0-30.0); Prothrombin Time 10.7 sec (9.0-12.0)
[2018-03-13 07:10] LABS: Creatine Kinase MB 0.8 ng/mL (0.0-2.4)
[2018-03-13] MEDS ORDERED: METOPROLOL TARTRATE 5 MG/5 ML VIAL IVP STA (07:12)
[2018-03-13 07:18] LABS: Troponin I 0.422 ng/mL (0.000-0.034)
[2018-03-13] MEDS ORDERED: HEPARIN SODIUM,PORCINE 5,000 UNIT/ML 1 ML VIAL IV ONE (07:20)
[2018-03-13] MEDS ORDERED: NITROGLYCERIN SL TABS 0.4 MG TAB SUBLINGUAL PRN (07:33)
[2018-03-13] MEDS ORDERED: HEPARIN SOD,PORK IN 0.45% NACL 25,000 UNIT in 0.45% NACL 1 250ML.BAG IV SCH (07:45)
[2018-03-13 08:25] LABS: T4, Free (Free Thyroxine) 1.7 ng/dL (0.78-2.19)
[2018-03-13 13:53] LABS: Troponin I 0.382 ng/mL (0.000-0.034)
[2018-03-13] MEDS ORDERED: ARTIFICIAL TEARS-HYPROMELLOSE DROPS 15 ML BTL BOTH EYES PRN (16:11)
[2018-03-13] MEDS ORDERED: DOCUSATE 100 MG CAP PO PRN (16:11)
[2018-03-13] MEDS: RIVAROXABAN 20 MG TAB PO SCH (17:01)
[2018-03-13] MEDS: AMIODARONE 100 MG TAB PO SCH (17:01)
[2018-03-13 17:07] VITALS: BMI 41.2
[2018-03-13] MEDS: IPRATROPIUM 0.5 MG/2.5 ML NEBU INHALATION SCH ×2 (17:47→21:01)
[2018-03-13 20:20] LABS: Creatine Kinase MB 1.1 ng/mL (0.0-2.4)
[2018-03-13 20:23] LABS: Troponin I 0.398 ng/mL (0.000-0.034)
[2018-03-13] MEDS: guaiFENesin 600 MG TABLET.ER PO SCH (20:43)
[2018-03-13] MEDS: guaiFENesin SYRUP 100MG/5ML 200 MG/10 ML CUP PO PRN (20:43)
[2018-03-13] MEDS: ASPIRIN 325 MG TAB PO SCH (20:43)
[2018-03-13] MEDS: ATORVASTATIN 40 MG TAB PO SCH (20:43)
[2018-03-13] MEDS: VIT A,C & E-LUTEIN-MINERALS 1 EACH TAB PO SCH (20:43)
[2018-03-13] MEDS: BUDESONIDE 0.5 MG/2 ML NEBU INHALATION SCH (21:01)
--- NOTE | 2018-03-13 23:49 | P.HPIM ---
History of Present Illness H&P Date: 03/13/18 Chief Complaint: Shortness of breath Patient is a 72-year-old male with a known history of paroxysmal atrial fibrillation and recently underwent an ablation last came to ER with the complaints of shortness of breath. Shortness of breath is worsening for the past 2 days. Patient was also having palpitations and sweating. She woke up this morning with worsening symptoms. Patient does take metoprolol and amiodarone as well as on anticoagulation. Patient did take Cardizem this morning when she felt like she was in atrial fibrillation. She is also having cough with whitish to green sputum production. Patient is also having shortness of breath. Patient came to ER for further evaluation. Denied any chest pain. No leg swelling. Patient also has history of COPD and is on nebulizer treatments and inhaled steroids at home. No fever no chills. No nausea vomiting or abdominal pain. No diarrhea dysuria or hematuria. Chest x-ray showed cardiomegaly with pulmonary venous congestion and interstitial prominence is currently related to edema. Bilateral lower lobe airspace disease which could be related to edema or infiltrate as well as atelectasis. Possible small pleural effusion. Troponin 0.422 and 0.382 and a 0.398 EKG showed atrial fibrillation with rapid ventricular rate Review of Systems Constitutional: Patient denies any fever or chills . No generalized weakness or weight loss. Abdomen: Patient denied nausea vomiting and diarrhea and abdominal pain. Cardiovascular: Patient does have shortness of breath and palpitations. No chest pain Respiratory: Cough with whitish sputum production and shortness of breath. Neurologic: Patient denied any numbness or tingling headache. Musculoskeletal: Patient denies any complaints of joint swelling or deformity. Skin: Negative Psychiatric: Negative Endocrine: No heat or cold intolerance. No recent weight gain. Genitourinary: No dysuria or hematuria. All other 14 point ROS negative except the above Past Medical History Past Medical History: Atrial Fibrillation, Asthma, Coronary Artery Disease (CAD) , Cancer, COPD, Myocardial Infarction ([place]), Osteoarthritis (OA), Pneumonia, Thyroid Disorder Additional Past Medical History / Comment(s): See Dr Trimble's H&P,Gout, hiatal hernia, MACULAR DEGENERATION, SKIN CANCER, degenerative disc disease, osteoporosis Last Myocardial Infarction Date:: 2011 History of Any Multi-Drug Resistant Organisms: None Reported Past Surgical History: Ablation, Cholecystectomy, Heart Catheterization With Stent, Hysterectomy, Orthopedic Surgery, Tonsillectomy Additional Past Surgical History / Comment(s): right shoulder, left wrist. Thyroid Nodule removed,cataracts, LOOP RECORDER-11/23/17 [facility] ABLATION Feb WITH CARDIOVERTION Past Anesthesia/Blood Transfusion Reactions: No Reported Reaction Date of Last Stent Placement:: 2011 Type of Cardiac Device: Loop Device Placement Date:: 11/23/17 Past Psychological History: No Psychological Hx Reported Smoking Status: Former smoker Past Alcohol Use History: None Reported Past Drug Use History: None Reported - Past Family History Mother Family Medical History: Cancer, Congestive Heart Failure (CHF), Myocardial Infarction ([place]), Pneumonia, Pulmonary Embolus Additional Family Medical History / Comment(s): breast CA Father Family Medical History: CVA/TIA, Myocardial Infarction ([place]) Medications and Allergies Home Medications Medication Instructions Recorded Confirmed Type Albuterol Sulfate [Ventolin HFA] 2 puff INHALATION RT-Q6H PRN 08/11/13 03/13/18 History Multivitamins, Thera [Multivitamin 1 tab PO DAILY 05/31/14 03/13/18 History (formulary)] Vit C/E/Zn/Coppr/Lutein/Zeaxan 1 cap PO BID 03/02/15 03/13/18 History [Preservision Areds 2 Softgel] Atorvastatin [Lipitor] 40 mg PO HS #30 tab 03/04/15 03/13/18 Rx Budesonide [Pulmicort] 0.5 mg PO RT-BID 08/30/17 03/13/18 History Cholecalciferol [Vitamin D3] 1,000 unit PO DAILY 08/30/17 03/13/18 History Cyanocobalamin (Vitamin B-12) 1,000 mcg PO DAILY 08/30/17 03/13/18 History [Vitamin B-12] Magnesium Oxide [Mag-Ox] 250 mg PO DAILY 08/30/17 03/13/18 History guaiFENesin [Mucinex] 600 mg PO BID 08/30/17 03/13/18 History Ipratropium Nebulized [Atrovent 0.5 mg INHALATION RT-TID #0 09/07/17 03/13/18 Rx Nebulized 0.2 MG/ML] Amiodarone [Cordarone] 100 mg PO DAILY 09/11/17 03/13/18 History Rivaroxaban [Xarelto] 20 mg PO DAILY 09/11/17 03/13/18 History Artificial Tears-Hypromellose 1 drops BOTH EYES TID PRN bottle 09/15/17 Rx [Artificial Tear Drops] Furosemide [Lasix] 40 mg PO DAILY #30 tablet 09/15/17 03/13/18 Rx Docusate [Colace] 100 mg PO BID PRN 11/17/17 03/13/18 History Potassium Chloride ER [K-Dur 10] 20 meq PO DAILY 11/17/17 03/13/18 History Aspirin 325 mg PO HS 11/23/17 03/13/18 History Levothyroxine Sodium [Synthroid] 50 mcg PO DAILY 01/03/18 03/13/18 History Allergies Allergy/AdvReac Type Severity Reaction Status Date / Time codeine Allergy Itching Verified 03/13/18 08:18 Physical Exam Vitals: Vital Signs Temp Pulse Pulse Resp BP Pulse Ox 03/13/18 14:00 78 26 H 141/71 97 03/13/18 13:00 73 20 131/70 98 03/13/18 12:00 71 18 106/59 96 03/13/18 11:30 75 18 106/59 97 03/13/18 08:30 63 18 107/65 97 03/13/18 08:00 65 16 142/75 97 03/13/18 07:22 113 H 18 121/89 97 03/13/18 07:00 138 H 24 106/73 97 03/13/18 06:40 126 H 22 104/62 97 03/13/18 06:35 144 H 03/13/18 06:34 131 H 20 104/62 96 03/13/18 05:33 98.0 F 137 H 23 128/70 93 L Intake and Output 03/13/18 03/13/18 03/13/18 06:59 14:59 22:59 Intake Total 2.167 Balance 2.167 Intake: Intake, IV Titration 2.167 Amount Diltiazem 50 mg In Sodium 2.167 Chloride 0.9% 40 ml @ 5 MG/HR 5 mls/hr IV .Q10H [facility] Rx#:[id number] Other: Weight 92.533 kg PHYSICAL EXAMINATION: Patient is lying in the bed comfortably, no acute distress, awake alert and oriented.. HEENT: Normocephalic. Neck is supple. Pupils reactive. Nostrils clear. Oral cavity is moist. Ears reveal no drainage. Neck reveals no JVD, carotid bruits, or thyromegaly. CHEST EXAMINATION: Trachea is central. Symmetrical expansion. Bibasilar crackles and rhonchi. No wheezing. CARDIAC: Normal S1, S2 with no gallops. No murmurs ABDOMEN: Soft. Bowel sounds normal. No organomegaly. No abdominal bruits. Extremities: Trace edema. No clubbing or cyanosis Neurologically awake, alert, oriented x3 with well-coordinated movements. No focal deficits noted Skin: No rash or skin lesions. Psychiatric: Coperative. Nonsuicidal Musculoskeletal: No joint swelling or deformity. Normal range of motion. Results CBC & Chem 7: 03/13/18 06:10 03/13/18 06:10 Labs: Abnormal Lab Results - Last 24 Hours (Table) 03/13/18 03/13/18 03/13/18 Range/Units 06:10 06:10 06:10 Hgb 10.8 L (11.4-16.0) gm/dL RDW 16.3 H (11.5-15.5) % BUN 24 H (7-17) mg/dL Glucose 115 H (74-99) mg/dL AST 46 H (14-36) U/L Troponin I 0.422 H* (0.000-0.034) ng/mL TSH 5.740 H (0.465-4.680) mIU/L 03/13/18 Range/Units 12:55 Hgb (11.4-16.0) gm/dL RDW (11.5-15.5) % BUN (7-17) mg/dL Glucose (74-99) mg/dL AST (14-36) U/L Troponin I 0.382 H* (0.000-0.034) ng/mL TSH (0.465-4.680) mIU/L Thrombosis Risk Factor Assmnt - DVT/VTE Prophylaxis DVT/VTE Prophylaxis: Pharmacologic Prophylaxis ordered Assessment and Plan Assessment: Atrial fibrillation with rapid ventricular rate. Patient had recent ablation on 03/08/2018. Acute CHF likely precipitated by RVR. ejection fraction unknown. Elevated troponin level likely demand mismatch. Possible non-ST elevated [place] COPD Coronary artery disease with history of stent placement Osteoarthritis Hypothyroidism Hyperlipidemia History of gout Previous history of smoking Loop recorder placed on 11/23/2017 Morbid obesity with BMI 41.2 Slightly elevated TSH at 5.7 but free T4 level within normal limits DVT prophylaxis patient is already on full anticoagulation Plan: Patient was started on Cardizem drip in the ER and was also given a dose of IV metoprolol. Heart rate is better controlled now. Will start on IV Lasix. Patient will be started back on amiodarone and continue with anticoagulation. Continue with breathing treatments and follow closely. Cardiology was consulted and further recommendations based on the clinical course. Prognosis is guarded with multiple medical problems and comorbid conditions. Time with Patient: Greater than 30
[2018-03-14] MEDS: LEVOTHYROXINE 50 MCG TAB PO SCH (06:04)
[2018-03-14 06:53] LABS: Anisocytosis Slight; Basophils % (A) 1 %; Eosinophils # (A) 0.5 k/uL (0-0.7); Eosinophils % (A) 7 %; HCT 31.9 % (34.0-46.0); HGB 9.8 gm/dL (11.4-16.0); Hypochromasia Slight; Lymphocytes # (A) 1.8 k/uL (1.0-4.8); Lymphocytes % (A) 26 %; MCH 26.1 pg (25.0-35.0); MCHC 30.8 g/dL (31.0-37.0); MCV 84.6 fL (80.0-100.0); Mean Platelet Volume 6.9; Monocytes # (A) 0.4 k/uL (0-1.0); Monocytes % (A) 7 %; Neutrophils # (A) 3.8 k/uL (1.3-7.7); Neutrophils % (A) 56 %; Platelet Count 239 k/uL (150-450); RBC 3.77 m/uL (3.80-5.40); RDW 16.5 % (11.5-15.5); WBC 6.7 k/uL (3.8-10.6)
[2018-03-14 07:07] LABS: Calcium 9.4 mg/dL (8.4-10.2); Potassium 4.4 mmol/L (3.5-5.1)
[2018-03-14] MEDS: BUDESONIDE 0.5 MG/2 ML NEBU INHALATION SCH ×2 (07:59→21:06)
[2018-03-14] MEDS: IPRATROPIUM 0.5 MG/2.5 ML NEBU INHALATION SCH ×3 (07:59→21:03)
[2018-03-14] MEDS ORDERED: FUROSEMIDE 40 MG TAB PO SCH (09:00)
[2018-03-14] MEDS ORDERED: ASPIRIN 325 MG TAB PO SCH (09:00)
[2018-03-14] MEDS: POTASSIUM CHLORIDE ER 20 MEQ TAB.ER PO SCH (09:18)
[2018-03-14] MEDS: MULTIVITAMINS, THERA 1 EACH TAB PO SCH (09:18)
[2018-03-14] MEDS: CYANOCOBALAMIN 500 MCG TAB PO SCH (09:18)
[2018-03-14] MEDS: CHOLECALCIFEROL 1,000 UNIT TAB PO SCH (09:18)
[2018-03-14] MEDS: guaiFENesin 600 MG TABLET.ER PO SCH ×2 (09:18→20:46)
[2018-03-14] MEDS: AMIODARONE 100 MG TAB PO SCH (09:18)
[2018-03-14] MEDS: RIVAROXABAN 20 MG TAB PO SCH (09:18)
[2018-03-14] MEDS: VIT A,C & E-LUTEIN-MINERALS 1 EACH TAB PO SCH ×2 (09:18→20:46)
[2018-03-14] MEDS: MAGNESIUM OXIDE 400 MG TAB PO SCH (09:18)
[2018-03-14] MEDS: FUROSEMIDE 10 MG/ML 4 ML VIAL IV SCH ×2 (09:18)
--- NOTE | 2018-03-14 10:15 | P.CRDCN ---
<Fátima Sam E - Last Filed: 03/14/18 09:28> History of Present Illness Consult date: 03/14/18 Requesting physician: May Tanner Consult reason: atrial fibrillation Chief complaint: Palpitations History of present illness: This is a 72-year-old female with known history of paroxysmal atrial fibrillation, COPD, history of left atrial appendage clot in the past, hyperlipidemia, hypertension, nicotine dependence, she follows with Dr. Currie in the office. Most recently patient was in the hospital last month underwent successful pulmonary vein isolation of all veins using cryoablation. Patient overall fairly well at home. She states that on Monday she had an occasional palpitation, and again on Monday. However Monday morning she woke up extremely diaphoretic, felt her heart racing very fast. She knew that she was in atrial fibrillation, came to the emergency room for further evaluation and treatment. EKG on admission here showed atrial fibrillation with a rapid ventricular response, incomplete left bundle branch block pattern, patient was initiated on IV Cardizem on admission here she was also given a dose of beta justin. Prior to coming to the hospital she to take an additional dose of her Cardizem and she was instructed to do by Dr. Flynn in the past. Patient has since converted to normal sinus rhythm and this morning remains in normal sinus rhythm. Chest x-ray on admission revealed cardiomegaly with pulmonary venous congestion and interstitial prominence which could be related to edema. Bilateral lower lobe airspace disease which could be related to edema. Possible small left pleural effusion. Blood pressure this morning 140/60 with a heart rate in the 80s, 96% on 2 L of oxygen. White blood cell count 6.7, hemoglobin 9.8, platelet count 239. Sodium 138, potassium 4.4, BUN 24, creatinine 1.0. Troponins 0.42, 0.38, 0.39. BNP level 2480, TSH level 5.7 with a free T4 of 1.7. At the time of my examination this morning, patient states she feels mildly short of breath, denies any palpitations, no chest discomfort. Past Medical History Past Medical History: Atrial Fibrillation, Asthma, Coronary Artery Disease (CAD) , Cancer, COPD, Myocardial Infarction ([place]), Osteoarthritis (OA), Pneumonia, Thyroid Disorder Additional Past Medical History / Comment(s): See Dr Krishen's H&P,Gout, hiatal hernia, MACULAR DEGENERATION, SKIN CANCER, degenerative disc disease, osteoporosis Last Myocardial Infarction Date:: 2011 History of Any Multi-Drug Resistant Organisms: None Reported Past Surgical History: Ablation, Cholecystectomy, Heart Catheterization With Stent, Hysterectomy, Orthopedic Surgery, Tonsillectomy Additional Past Surgical History / Comment(s): right shoulder, left wrist. Thyroid Nodule removed,cataracts, LOOP RECORDER-11/23/17 [facility]RIO ABLATION Feb WITH CARDIOVERTION Past Anesthesia/Blood Transfusion Reactions: No Reported Reaction Date of Last Stent Placement:: 2011 Type of Cardiac Device: Loop Device Placement Date:: 11/23/17 Past Psychological History: No Psychological Hx Reported Smoking Status: Former smoker Past Alcohol Use History: None Reported Past Drug Use History: None Reported - Past Family History Mother Family Medical History: Cancer, Congestive Heart Failure (CHF), Myocardial Infarction ([place]), Pneumonia, Pulmonary Embolus Additional Family Medical History / Comment(s): breast CA Father Family Medical History: CVA/TIA, Myocardial Infarction ([place]) Medications and Allergies Home Medications Medication Instructions Recorded Confirmed Type Albuterol Sulfate [Ventolin HFA] 2 puff INHALATION RT-Q6H PRN 08/11/13 03/13/18 History Multivitamins, Thera [Multivitamin 1 tab PO DAILY 05/31/14 03/13/18 History (formulary)] Vit C/E/Zn/Coppr/Lutein/Zeaxan 1 cap PO BID 03/02/15 03/13/18 History [Preservision Areds 2 Softgel] Atorvastatin [Lipitor] 40 mg PO HS #30 tab 03/04/15 03/13/18 Rx Budesonide [Pulmicort] 0.5 mg PO RT-BID 08/30/17 03/13/18 History Cholecalciferol [Vitamin D3] 1,000 unit PO DAILY 08/30/17 03/13/18 History Cyanocobalamin (Vitamin B-12) 1,000 mcg PO DAILY 08/30/17 03/13/18 History [Vitamin B-12] Magnesium Oxide [Mag-Ox] 250 mg PO DAILY 08/30/17 03/13/18 History guaiFENesin [Mucinex] 600 mg PO BID 08/30/17 03/13/18 History Ipratropium Nebulized [Atrovent 0.5 mg INHALATION RT-TID #0 09/07/17 03/13/18 Rx Nebulized 0.2 MG/ML] Amiodarone [Cordarone] 100 mg PO DAILY 09/11/17 03/13/18 History Rivaroxaban [Xarelto] 20 mg PO DAILY 09/11/17 03/13/18 History Artificial Tears-Hypromellose 1 drops BOTH EYES TID PRN bottle 09/15/17 Rx [Artificial Tear Drops] Furosemide [Lasix] 40 mg PO DAILY #30 tablet 09/15/17 03/13/18 Rx Docusate [Colace] 100 mg PO BID PRN 11/17/17 03/13/18 History Potassium Chloride ER [K-Dur 10] 20 meq PO DAILY 11/17/17 03/13/18 History Aspirin 325 mg PO HS 11/23/17 03/13/18 History Levothyroxine Sodium [Synthroid] 50 mcg PO DAILY 01/03/18 03/13/18 History Allergies Allergy/AdvReac Type Severity Reaction Status Date / Time codeine Allergy Itching Verified 03/13/18 08:18 Physical Exam Vitals: Vital Signs Temp Pulse Pulse Resp BP BP Pulse Ox 03/14/18 09:15 97.5 F L 88 18 141/64 96 03/14/18 08:12 80 03/14/18 07:59 78 03/14/18 06:02 76 15 139/60 94 L 03/14/18 06:01 16 03/14/18 00:00 77 16 120/56 94 L 03/13/18 21:14 83 03/13/18 21:01 80 03/13/18 20:15 98.2 F 76 16 150/79 98 03/13/18 17:55 84 03/13/18 17:52 98 03/13/18 17:50 80 03/13/18 16:55 98.2 F 92 18 150/95 90 L 03/13/18 16:50 18 86 L 03/13/18 14:00 78 26 H 141/71 97 03/13/18 13:00 73 20 131/70 98 03/13/18 12:00 71 18 106/59 96 03/13/18 11:30 75 18 106/59 97 Intake and Output 03/13/18 03/14/18 03/14/18 22:59 06:59 14:59 Intake Total 287.833 Balance 287.833 Intake: Intake, IV Titration 47.833 Amount Diltiazem 50 mg In Sodium 47.833 Chloride 0.9% 40 ml @ 5 MG/HR 5 mls/hr IV .Q10H [facility] Rx#:[id number] Oral 240 Other: # Voids 1 1 # Bowel Movements 1 Weight 94.6 kg PHYSICAL EXAMINATION: GENERAL: 72-year-old female in no acute distress at the time of my examination HEENT: Head is atraumatic, normocephalic. Pupils equal, round. Sclera anicteric. Conjunctiva are clear. Mucous membranes of the mouth are moist. Neck is supple. There is no elevated jugular venous pressure. No carotid bruit is heard. HEART EXAMINATION: Heart S1, S2 normal. No murmur or gallop heard. CHEST EXAMINATION: Lungs are clear to auscultation and precussion. No chest wall tenderness is noted on palpation or with deep breathing. ABDOMEN: Soft, nontender. Bowel sounds are heard. No organomegaly noted. EXTREMITIES: 2+ peripheral pulses with no evidence of peripheral edema and no calf tenderness noted. NEUROLOGIC patient is awake, alert and oriented 3 . . Results 03/14/18 06:08 03/14/18 06:08 Cardiac Enzymes 03/13/18 03/13/18 Range/Units 12:55 19:06 CK-MB (CK-2) 1.0 1.1 (0.0-2.4) ng/mL Troponin I 0.382 H* 0.398 H* (0.000-0.034) ng/mL Lipids 03/14/18 Range/Units 06:08 Triglycerides 117 (<150) mg/dL Cholesterol 130 (<200) mg/dL HDL Cholesterol 69 H (40-60) mg/dL CBC 03/14/18 Range/Units 06:08 WBC 6.7 (3.8-10.6) k/uL RBC 3.77 L (3.80-5.40) m/uL Hgb 9.8 L (11.4-16.0) gm/dL Hct 31.9 L (34.0-46.0) % Plt Count 239 (150-450) k/uL Comprehensive Metabolic Panel 01/02/19 Range/Units 06:08 Sodium 138 (137-145) mmol/L Potassium 4.4 (3.5-5.1) mmol/L Chloride 105 (98-107) mmol/L Carbon Dioxide 25 (22-30) mmol/L BUN 24 H (7-17) mg/dL Creatinine 1.09 H (0.52-1.04) mg/dL Glucose 96 (74-99) mg/dL Calcium 9.4 (8.4-10.2) mg/dL Current Medications Generic Name Dose Route Start Last Admin Trade Name Freq PRN Reason Stop Dose Admin Amiodarone HCl 100 mg 03/13/18 16:30 03/14/18 09:18 Cordarone PO 100 mg DAILY [facility] Administration Artificial Tears 1 drops 03/13/18 16:11 Artificial Tear Drops BOTH EYES TID PRN Dry Eye(s) Aspirin 325 mg 03/13/18 21:00 03/13/18 20:43 Aspirin PO 325 mg HS [facility] Administration Atorvastatin Calcium 40 mg 03/13/18 21:00 03/13/18 20:43 Lipitor PO 40 mg HS [facility] Administration Budesonide 0.5 mg 03/13/18 20:00 03/14/18 07:59 Pulmicort INHALATION 0.5 mg RT-BID [facility] Administration Cholecalciferol 1,000 unit 03/14/18 09:00 03/14/18 09:18 Vitamin D3 PO 1,000 unit DAILY [facility] Administration Cyanocobalamin 1,000 mcg 03/14/18 09:00 03/14/18 09:18 Vitamin B-12 PO 1,000 mcg DAILY [facility] Administration Docusate Sodium 100 mg 03/13/18 16:11 Colace PO BID PRN Constipation Furosemide 40 mg 03/13/18 23:45 03/14/18 09:18 Lasix IV 40 mg DAILY [facility] Administration Guaifenesin 600 mg 03/13/18 21:00 03/14/18 09:18 Mucinex PO 600 mg BID [facility] Administration Guaifenesin 200 mg 03/13/18 20:29 03/13/18 20:43 Robitussin PO 200 mg Q6H PRN Administration Cough Ipratropium Todd 0.5 mg 03/13/18 20:00 03/14/18 07:59 Atrovent Nebulized INHALATION 0.5 mg RT-TID [facility] Administration Levothyroxine Sodium 50 mcg 03/14/18 06:30 03/14/18 06:04 Synthroid PO 50 mcg DAILY@0630 [facility] Administration Magnesium Oxide 400 mg 03/14/18 09:00 03/14/18 09:18 Mag-Ox PO 400 mg DAILY [facility] Administration Multivitamins 1 each 03/14/18 12:00 03/14/18 09:18 Theragran PO 1 each DAILY@1200 [facility] Administration Multivitamins/Minerals 1 each 03/13/18 21:00 03/14/18 09:18 Ivite PO 1 each BID [facility] Administration Nitroglycerin 0.4 mg 03/13/18 07:33 Nitrostat SUBLINGUAL Q5M PRN Chest Pain Potassium Chloride 20 meq 03/14/18 09:00 03/14/18 09:18 K-Dur 20 PO 20 meq DAILY [facility] Administration Rivaroxaban 20 mg 03/13/18 16:30 03/14/18 09:18 Xarelto PO 20 mg DAILY [facility] Administration Intake and Output 03/13/18 03/14/18 03/14/18 22:59 06:59 14:59 Intake Total 287.833 Balance 287.833 Intake: Intake, IV Titration 47.833 Amount Diltiazem 50 mg In Sodium 47.833 Chloride 0.9% 40 ml @ 5 MG/HR 5 mls/hr IV .Q10H [facility] Rx#:[id number] Oral 240 Other: # Voids 1 1 # Bowel Movements 1 Weight 94.6 kg 03/14/18 06:08 03/14/18 06:08 EKG Interpretations (text) Initial EKG shows atrial fibrillation with rapid ventricular response, subsequent EKG shows normal sinus rhythm with no acute changes. Assessment and Plan Plan: Assessment and plan #1 atrial fibrillation with rapid ventricular response, paroxysmal. Currently in normal sinus #2 known history of paroxysmal atrial fibrillation with recent cryoablation one week ago #3 hyperlipidemia #4 hypertension #5 COPD #6 nicotine dependence Plan Patient is receiving IV Lasix, we will continue to doses of IV Lasix. We will also give the patient one time IV dose of 300 mg of amiodarone and increase her home dose to 200 mg daily. Further recommendations to follow. DNP note has been reviewed, I agree with a documented findings and plan of care. Patient was seen and examined. <Ismael Trimble - Last Filed: 03/14/18 10:45> Physical Exam Vitals: Vital Signs Temp Pulse Pulse Resp BP BP Pulse Ox 03/14/18 09:15 97.5 F L 88 18 141/64 96 03/14/18 08:12 80 03/14/18 07:59 78 03/14/18 06:02 76 15 139/60 94 L 03/14/18 06:01 16 03/14/18 00:00 77 16 120/56 94 L 03/13/18 21:14 83 03/13/18 21:01 80 03/13/18 20:15 98.2 F 76 16 150/79 98 03/13/18 17:55 84 03/13/18 17:52 98 03/13/18 17:50 80 03/13/18 16:55 98.2 F 92 18 150/95 90 L 03/13/18 16:50 18 86 L 03/13/18 14:00 78 26 H 141/71 97 03/13/18 13:00 73 20 131/70 98 03/13/18 12:00 71 18 106/59 96 03/13/18 11:30 75 18 106/59 97 Intake and Output 03/13/18 03/14/18 03/14/18 22:59 06:59 14:59 Intake Total 287.833 Balance 287.833 Intake: Intake, IV Titration 47.833 Amount Diltiazem 50 mg In Sodium 47.833 Chloride 0.9% 40 ml @ 5 MG/HR 5 mls/hr IV .Q10H [facility] Rx#:[id number] Oral 240 Other: # Voids 1 1 1 # Bowel Movements 1 1 Weight 94.6 kg Results 03/14/18 06:08 03/14/18 06:08 Cardiac Enzymes 03/13/18 03/13/18 Range/Units 12:55 19:06 CK-MB (CK-2) 1.0 1.1 (0.0-2.4) ng/mL Troponin I 0.382 H* 0.398 H* (0.000-0.034) ng/mL Lipids 03/14/18 Range/Units 06:08 Triglycerides 117 (<150) mg/dL Cholesterol 130 (<200) mg/dL HDL Cholesterol 69 H (40-60) mg/dL CBC 01/02/19 Range/Units 06:08 WBC 6.7 (3.8-10.6) k/uL RBC 3.77 L (3.80-5.40) m/uL Hgb 9.8 L (11.4-16.0) gm/dL Hct 31.9 L (34.0-46.0) % Plt Count 239 (150-450) k/uL Comprehensive Metabolic Panel 03/14/18 Range/Units 06:08 Sodium 138 (137-145) mmol/L Potassium 4.4 (3.5-5.1) mmol/L Chloride 105 (98-107) mmol/L Carbon Dioxide 25 (22-30) mmol/L BUN 24 H (7-17) mg/dL Creatinine 1.09 H (0.52-1.04) mg/dL Glucose 96 (74-99) mg/dL Calcium 9.4 (8.4-10.2) mg/dL Current Medications Generic Name Dose Route Start Last Admin Trade Name Freq PRN Reason Stop Dose Admin Amiodarone HCl 200 mg 03/15/18 09:00 Cordarone PO DAILY [facility] Artificial Tears 1 drops 03/13/18 16:11 Artificial Tear Drops BOTH EYES TID PRN Dry Eye(s) Aspirin 325 mg 03/13/18 21:00 03/13/18 20:43 Aspirin PO 325 mg HS [facility] Administration Atorvastatin Calcium 40 mg 03/13/18 21:00 03/13/18 20:43 Lipitor PO 40 mg HS [facility] Administration Budesonide 0.5 mg 03/13/18 20:00 03/14/18 07:59 Pulmicort INHALATION 0.5 mg RT-BID [facility] Administration Cholecalciferol 1,000 unit 03/14/18 09:00 03/14/18 09:18 Vitamin D3 PO 1,000 unit DAILY [facility] Administration Cyanocobalamin 1,000 mcg 03/14/18 09:00 03/14/18 09:18 Vitamin B-12 PO 1,000 mcg DAILY [facility] Administration Docusate Sodium 100 mg 03/13/18 16:11 Colace PO BID PRN Constipation Furosemide 40 mg 03/13/18 23:45 03/14/18 09:18 Lasix IV 40 mg DAILY [facility] Administration Guaifenesin 600 mg 03/13/18 21:00 03/14/18 09:18 Mucinex PO 600 mg BID [facility] Administration Guaifenesin 200 mg 03/13/18 20:29 03/13/18 20:43 Robitussin PO 200 mg Q6H PRN Administration Cough Amiodarone HCl 300 mg/ 256 mls @ 128 mls/hr 03/14/18 10:30 Dextrose/Water IV 03/14/18 12:29 .Q2H ONE Ipratropium Todd 0.5 mg 03/13/18 20:00 03/14/18 07:59 Atrovent Nebulized INHALATION 0.5 mg RT-TID [facility] Administration Levothyroxine Sodium 50 mcg 03/14/18 06:30 03/14/18 06:04 Synthroid PO 50 mcg DAILY@0630 [facility] Administration Magnesium Oxide 400 mg 03/14/18 09:00 03/14/18 09:18 Mag-Ox PO 400 mg DAILY [facility] Administration Multivitamins 1 each 03/14/18 12:00 03/14/18 09:18 Theragran PO 1 each DAILY@1200 [facility] Administration Multivitamins/Minerals 1 each 03/13/18 21:00 03/14/18 09:18 Ivite PO 1 each BID [facility] Administration Nitroglycerin 0.4 mg 03/13/18 07:33 Nitrostat SUBLINGUAL Q5M PRN Chest Pain Potassium Chloride 20 meq 03/14/18 09:00 03/14/18 09:18 K-Dur 20 PO 20 meq DAILY [facility] Administration Rivaroxaban 20 mg 03/13/18 16:30 03/14/18 09:18 Xarelto PO 20 mg DAILY [facility] Administration Intake and Output 03/13/18 03/14/18 03/14/18 22:59 06:59 14:59 Intake Total 287.833 Balance 287.833 Intake: Intake, IV Titration 47.833 Amount Diltiazem 50 mg In Sodium 47.833 Chloride 0.9% 40 ml @ 5 MG/HR 5 mls/hr IV .Q10H [facility] Rx#:[id number] Oral 240 Other: # Voids 1 1 1 # Bowel Movements 1 1 Weight 94.6 kg 03/14/18 06:08 03/14/18 06:08
[2018-03-14] MEDS ORDERED: DEXTROSE 5% IN WATER 250 ML with AMIODARONE 300 MG IV ONE (10:30)
--- NOTE | 2018-03-14 10:49 | P.CRDCN ---
History of Present Illness History of present illness: Patient interviewed and examined. Recent PVI and she comes in with A. fib with RVR which is not unexpected immediately after A. fib ablation in the first 6-8 weeks She spontaneously converted on AV node blocking drugs Suggest TSH level IV Lasix and then Lasix plus spironolactone instead of oral potassium IV amiodarone 300 mg followed by oral therapy 400 mg by mouth daily for one month and then 200 mg thereafter Past Medical History Past Medical History: Atrial Fibrillation, Asthma, Coronary Artery Disease (CAD) , Cancer, COPD, Myocardial Infarction (MD), Osteoarthritis (OA), Pneumonia, Thyroid Disorder Additional Past Medical History / Comment(s): See Dr Trimble's H&P,Gout, hiatal hernia, MACULAR DEGENERATION, SKIN CANCER, degenerative disc disease, osteoporosis Last Myocardial Infarction Date:: 2011 History of Any Multi-Drug Resistant Organisms: None Reported Past Surgical History: Ablation, Cholecystectomy, Heart Catheterization With Stent, Hysterectomy, Orthopedic Surgery, Tonsillectomy Additional Past Surgical History / Comment(s): right shoulder, left wrist. Thyroid Nodule removed,cataracts, LOOP RECORDER-11/23/17 CHRIO ABLATION Feb WITH CARDIOVERTION Past Anesthesia/Blood Transfusion Reactions: No Reported Reaction Date of Last Stent Placement:: 2011 Type of Cardiac Device: Loop Device Placement Date:: 11/23/17 Past Psychological History: No Psychological Hx Reported Smoking Status: Former smoker Past Alcohol Use History: None Reported Past Drug Use History: None Reported - Past Family History Mother Family Medical History: Cancer, Congestive Heart Failure (CHF), Myocardial Infarction (MD), Pneumonia, Pulmonary Embolus Additional Family Medical History / Comment(s): breast CA Father Family Medical History: CVA/TIA, Myocardial Infarction (MD) Medications and Allergies Home Medications Medication Instructions Recorded Confirmed Type Albuterol Sulfate [Ventolin HFA] 2 puff INHALATION RT-Q6H PRN 08/11/13 03/13/18 History Multivitamins, Thera [Multivitamin 1 tab PO DAILY 05/31/14 03/13/18 History (formulary)] Vit C/E/Zn/Coppr/Lutein/Zeaxan 1 cap PO BID 03/02/15 03/13/18 History [Preservision Areds 2 Softgel] Atorvastatin [Lipitor] 40 mg PO HS #30 tab 03/04/15 03/13/18 Rx Budesonide [Pulmicort] 0.5 mg PO RT-BID 08/30/17 03/13/18 History Cholecalciferol [Vitamin D3] 1,000 unit PO DAILY 08/30/17 03/13/18 History Cyanocobalamin (Vitamin B-12) 1,000 mcg PO DAILY 08/30/17 03/13/18 History [Vitamin B-12] Magnesium Oxide [Mag-Ox] 250 mg PO DAILY 08/30/17 03/13/18 History guaiFENesin [Mucinex] 600 mg PO BID 08/30/17 03/13/18 History Ipratropium Nebulized [Atrovent 0.5 mg INHALATION RT-TID #0 09/07/17 03/13/18 Rx Nebulized 0.2 MG/ML] Amiodarone [Cordarone] 100 mg PO DAILY 09/11/17 03/13/18 History Rivaroxaban [Xarelto] 20 mg PO DAILY 09/11/17 03/13/18 History Artificial Tears-Hypromellose 1 drops BOTH EYES TID PRN bottle 09/15/17 Rx [Artificial Tear Drops] Furosemide [Lasix] 40 mg PO DAILY #30 tablet 09/15/17 03/13/18 Rx Docusate [Colace] 100 mg PO BID PRN 11/17/17 03/13/18 History Potassium Chloride ER [K-Dur 10] 20 meq PO DAILY 11/17/17 03/13/18 History Aspirin 325 mg PO HS 11/23/17 03/13/18 History Levothyroxine Sodium [Synthroid] 50 mcg PO DAILY 01/03/18 03/13/18 History Allergies Allergy/AdvReac Type Severity Reaction Status Date / Time codeine Allergy Itching Verified 03/13/18 08:18 Physical Exam Vitals: Vital Signs Temp Pulse Pulse Resp BP BP Pulse Ox 03/14/18 09:15 97.5 F L 88 18 141/64 96 03/14/18 08:12 80 03/14/18 07:59 78 03/14/18 06:02 76 15 139/60 94 L 03/14/18 06:01 16 03/14/18 00:00 77 16 120/56 94 L 03/13/18 21:14 83 03/13/18 21:01 80 01/01/19 20:15 98.2 F 76 16 150/79 98 03/13/18 17:55 84 03/13/18 17:52 98 03/13/18 17:50 80 03/13/18 16:55 98.2 F 92 18 150/95 90 L 03/13/18 16:50 18 86 L 03/13/18 14:00 78 26 H 141/71 97 03/13/18 13:00 73 20 131/70 98 03/13/18 12:00 71 18 106/59 96 03/13/18 11:30 75 18 106/59 97 Intake and Output 03/13/18 03/14/18 03/14/18 22:59 06:59 14:59 Intake Total 287.833 Balance 287.833 Intake: Intake, IV Titration 47.833 Amount Diltiazem 50 mg In Sodium 47.833 Chloride 0.9% 40 ml @ 5 MG/HR 5 mls/hr IV .Q10H [facility] Rx#:[id number] Oral 240 Other: # Voids 1 1 1 # Bowel Movements 1 1 Weight 94.6 kg Results 03/14/18 06:08 03/14/18 06:08 Cardiac Enzymes 03/13/18 03/13/18 Range/Units 12:55 19:06 CK-MB (CK-2) 1.0 1.1 (0.0-2.4) ng/mL Troponin I 0.382 H* 0.398 H* (0.000-0.034) ng/mL Lipids 03/14/18 Range/Units 06:08 Triglycerides 117 (<150) mg/dL Cholesterol 130 (<200) mg/dL HDL Cholesterol 69 H (40-60) mg/dL CBC 03/14/18 Range/Units 06:08 WBC 6.7 (3.8-10.6) k/uL RBC 3.77 L (3.80-5.40) m/uL Hgb 9.8 L (11.4-16.0) gm/dL Hct 31.9 L (34.0-46.0) % Plt Count 239 (150-450) k/uL Comprehensive Metabolic Panel 03/14/18 Range/Units 06:08 Sodium 138 (137-145) mmol/L Potassium 4.4 (3.5-5.1) mmol/L Chloride 105 (98-107) mmol/L Carbon Dioxide 25 (22-30) mmol/L BUN 24 H (7-17) mg/dL Creatinine 1.09 H (0.52-1.04) mg/dL Glucose 96 (74-99) mg/dL Calcium 9.4 (8.4-10.2) mg/dL Current Medications Generic Name Dose Route Start Last Admin Trade Name Freq PRN Reason Stop Dose Admin Amiodarone HCl 200 mg 03/15/18 09:00 Cordarone PO DAILY MILAN Artificial Tears 1 drops 03/13/18 16:11 Artificial Tear Drops BOTH EYES TID PRN Dry Eye(s) Aspirin 325 mg 03/13/18 21:00 03/13/18 20:43 Aspirin PO 325 mg HS MILAN Administration Atorvastatin Calcium 40 mg 03/13/18 21:00 03/13/18 20:43 Lipitor PO 40 mg HS MILAN Administration Budesonide 0.5 mg 03/13/18 20:00 03/14/18 07:59 Pulmicort INHALATION 0.5 mg RT-BID [facility]AN Administration Cholecalciferol 1,000 unit 03/14/18 09:00 03/14/18 09:18 Vitamin D3 PO 1,000 unit DAILY [facility]AN Administration Cyanocobalamin 1,000 mcg 03/14/18 09:00 03/14/18 09:18 Vitamin B-12 PO 1,000 mcg DAILY MILAN Administration Docusate Sodium 100 mg 03/13/18 16:11 Colace PO BID PRN Constipation Furosemide 40 mg 03/13/18 23:45 03/14/18 09:18 Lasix IV 40 mg DAILY MILAN Administration Guaifenesin 600 mg 03/13/18 21:00 03/14/18 09:18 Mucinex PO 600 mg BID MILAN Administration Guaifenesin 200 mg 03/13/18 20:29 03/13/18 20:43 Robitussin PO 200 mg Q6H PRN Administration Cough Amiodarone HCl 300 mg/ 256 mls @ 128 mls/hr 03/14/18 10:30 Dextrose/Water IV 03/14/18 12:29 .Q2H ONE Ipratropium [place] 0.5 mg 03/13/18 20:00 03/14/18 07:59 Atrovent Nebulized INHALATION 0.5 mg RT-TID MILAN Administration Levothyroxine Sodium 50 mcg 03/14/18 06:30 03/14/18 06:04 Synthroid PO 50 mcg DAILY@0630 [facility] Administration Magnesium Oxide 400 mg 03/14/18 09:00 03/14/18 09:18 Mag-Ox PO 400 mg DAILY MILAN Administration Multivitamins 1 each 03/14/18 12:00 03/14/18 09:18 Theragran PO 1 each DAILY@1200 MILAN Administration Multivitamins/Minerals 1 each 03/13/18 21:00 03/14/18 09:18 Ivite PO 1 each BID MILAN Administration Nitroglycerin 0.4 mg 03/13/18 07:33 Nitrostat SUBLINGUAL Q5M PRN Chest Pain Potassium Chloride 20 meq 03/14/18 09:00 03/14/18 09:18 K-Dur 20 PO 20 meq DAILY MILAN Administration Rivaroxaban 20 mg 03/13/18 16:30 03/14/18 09:18 Xarelto PO 20 mg DAILY IMLAN Administration Intake and Output 03/13/18 03/14/18 03/14/18 22:59 06:59 14:59 Intake Total 287.833 Balance 287.833 Intake: Intake, IV Titration 47.833 Amount Diltiazem 50 mg In Sodium 47.833 Chloride 0.9% 40 ml @ 5 MG/HR 5 mls/hr IV .Q10H [facility] Rx#:[id number] Oral 240 Other: # Voids 1 1 1 # Bowel Movements 1 1 Weight 94.6 kg 03/14/18 06:08 03/14/18 06:08
[2018-03-14] MEDS: ACETAMINOPHEN TAB 325 MG TAB PO PRN (14:24)
--- NOTE | 2018-03-14 17:53 | P.PN ---
Subjective Patient is a 72-year-old male with a known history of paroxysmal atrial fibrillation and recently underwent an ablation last came to ER with the complaints of shortness of breath. Shortness of breath is worsening for the past 2 days. Patient was also having palpitations and sweating. She woke up this morning with worsening symptoms. Patient does take metoprolol and amiodarone as well as on anticoagulation. Patient did take Cardizem this morning when she felt like she was in atrial fibrillation. She is also having cough with whitish to green sputum production. Patient is also having shortness of breath. Patient came to ER for further evaluation. Denied any chest pain. No leg swelling. Patient also has history of COPD and is on nebulizer treatments and inhaled steroids at home. No fever no chills. No nausea vomiting or abdominal pain. No diarrhea dysuria or hematuria. Chest x-ray showed cardiomegaly with pulmonary venous congestion and interstitial prominence is currently related to edema. Bilateral lower lobe airspace disease which could be related to edema or infiltrate as well as atelectasis. Possible small pleural effusion. Troponin 0.422 and 0.382 and a 0.398 EKG showed atrial fibrillation with rapid ventricular rate 03/14/2018 Patient states that breathing feels better today. No chest pain or discomfort. Patient has been evaluated by geological aide who adjusted some of his medication , patient continue with diuresis with Lasix. As well as amiodarone as per cardiology. Objective - Vital Signs Vital signs: Vital Signs Temp 97.5 F L 03/14/18 09:15 Pulse 75 03/14/18 17:05 Resp 16 03/14/18 17:05 BP 144/70 03/14/18 17:05 Pulse Ox 95 03/14/18 17:05 Intake & Output 03/13/18 03/14/18 03/14/18 18:59 06:59 18:59 Intake Total 287.833 Balance 287.833 Weight 92.533 kg 94.6 kg Intake: Intake, IV Titration 47.833 Amount Diltiazem 50 mg In Sodium 47.833 Chloride 0.9% 40 ml @ 5 MG/HR 5 mls/hr IV .Q10H [facility] Rx#:[id number] Oral 240 Other: # Voids 1 1 1 # Bowel Movements 1 1 - Exam PHYSICAL EXAMINATION: Patient is lying in the bed comfortably, no acute distress, awake alert and oriented.. HEENT: Normocephalic. Neck is supple. Pupils reactive. Nostrils clear. Oral cavity is moist. Ears reveal no drainage. Neck reveals no JVD, carotid bruits, or thyromegaly. CHEST EXAMINATION: Trachea is central. Symmetrical expansion. Bibasilar crackles and rhonchi. No wheezing. CARDIAC: Normal S1, S2 with no gallops. No murmurs ABDOMEN: Soft. Bowel sounds normal. No organomegaly. No abdominal bruits. Extremities: Trace edema. No clubbing or cyanosis Neurologically awake, alert, oriented x3 with well-coordinated movements. No focal deficits noted Skin: No rash or skin lesions. Psychiatric: Coperative. Nonsuicidal Musculoskeletal: No joint swelling or deformity. Normal range of motion. - Labs CBC & Chem 7: 03/14/18 06:08 03/14/18 06:08 Labs: Abnormal Lab Results - Last 24 Hours (Table) 03/13/18 03/14/18 03/14/18 Range/Units 19:06 06:08 06:08 RBC 3.77 L (3.80-5.40) m/uL Hgb 9.8 L (11.4-16.0) gm/dL Hct 31.9 L (34.0-46.0) % MCHC 30.8 L (31.0-37.0) g/dL RDW 16.5 H (11.5-15.5) % BUN 24 H (7-17) mg/dL Creatinine 1.09 H (0.52-1.04) mg/dL Troponin I 0.398 H* (0.000-0.034) ng/mL HDL Cholesterol 69 H (40-60) mg/dL TSH (0.465-4.680) mIU/L 03/14/18 Range/Units 06:08 RBC (3.80-5.40) m/uL Hgb (11.4-16.0) gm/dL Hct (34.0-46.0) % MCHC (31.0-37.0) g/dL RDW (11.5-15.5) % BUN (7-17) mg/dL Creatinine (0.52-1.04) mg/dL Troponin I (0.000-0.034) ng/mL HDL Cholesterol (40-60) mg/dL TSH 8.040 H (0.465-4.680) mIU/L Assessment and Plan Plan: Assessment: Atrial fibrillation with rapid ventricular rate. Patient had recent ablation on 03/08/2018. Acute CHF likely precipitated by RVR. ejection fraction unknown. Elevated troponin level likely demand mismatch. Possible non-ST elevated MD COPD Coronary artery disease with history of stent placement Osteoarthritis Hypothyroidism Hyperlipidemia History of gout Previous history of smoking Loop recorder placed on 11/23/2017 Morbid obesity with BMI 41.2 Slightly elevated TSH at 5.7 but free T4 level within normal limits DVT prophylaxis patient is already on full anticoagulation Plan: Patient was started on Cardizem drip in the ER and was also given a dose of IV metoprolol. Heart rate is better controlled now. Will start on IV Lasix. Patient will be started back on amiodarone and continue with anticoagulation. Continue with breathing treatments and follow closely. Cardiology was consulted and further recommendations based on the clinical course. Prognosis is guarded with multiple medical problems and comorbid conditions.
[2018-03-14] MEDS: ASPIRIN 325 MG TAB PO SCH (20:46)
[2018-03-14] MEDS: ATORVASTATIN 40 MG TAB PO SCH (20:46)
[2018-03-15] MEDS: LEVOTHYROXINE 50 MCG TAB PO SCH (05:44)
[2018-03-15 05:45] VITALS: RESP 16
[2018-03-15] MEDS: BUDESONIDE 0.5 MG/2 ML NEBU INHALATION SCH (07:27)
[2018-03-15] MEDS: IPRATROPIUM 0.5 MG/2.5 ML NEBU INHALATION SCH ×2 (07:27→13:33)
[2018-03-15] MEDS ORDERED: AMIODARONE 200 MG TAB PO SCH (09:00)
[2018-03-15 09:07] VITALS: TEMP 97.7
[2018-03-15] MEDS: ACETAMINOPHEN TAB 325 MG TAB PO PRN (09:17)
[2018-03-15] MEDS: CHOLECALCIFEROL 1,000 UNIT TAB PO SCH (09:18)
[2018-03-15] MEDS: RIVAROXABAN 20 MG TAB PO SCH (09:19)
[2018-03-15] MEDS: POTASSIUM CHLORIDE ER 20 MEQ TAB.ER PO SCH (09:19)
[2018-03-15] MEDS: MAGNESIUM OXIDE 400 MG TAB PO SCH (09:19)
[2018-03-15] MEDS: guaiFENesin 600 MG TABLET.ER PO SCH (09:19)
[2018-03-15] MEDS: VIT A,C & E-LUTEIN-MINERALS 1 EACH TAB PO SCH (09:19)
[2018-03-15] MEDS: CYANOCOBALAMIN 500 MCG TAB PO SCH (09:19)
[2018-03-15] MEDS: FUROSEMIDE 10 MG/ML 4 ML VIAL IV SCH (09:19)
--- NOTE | 2018-03-15 11:23 | P.PN ---
Subjective Patient is resting comfortably in a chair. No respiratory distress no palpitations. She's now on oral amiodarone. She recently underwent successful PVI but came back with an organized atrial fibrillation with RVR On examination pulse rate is in the 70s she is afebrile 97% degrees Fahrenheit blood pressure is normal 124/55 mmHg Breath sounds are reduced bilaterally with bilateral rhonchi but no crackles Heart sounds S1 and S2 are normal soft no murmurs or gallop Abdomen soft 70s warm Impression symptomatic atrial fibrillation, originally persistent with left atrial appendage thrombus Status post PVI History of left atrial appendage thrombus hence on Xarelto plus aspirin Suggest Amiodarone 400 mg by mouth daily for about 2 months and then reduce it back to 200 mg by mouth daily Follow-up with Dr. Currie in 2 weeks Continue anticoagulation The patient may go home from a cardiac standpoint within the next 24-48 hours TSH is minimally elevated Levofloxacin dose may need a minor adjustment Continue atorvastatin continue aspirin Objective - Vital Signs Vital signs: Vital Signs Temp 97.7 F 03/15/18 08:00 Pulse 79 03/15/18 08:00 Resp 16 03/15/18 08:00 BP 124/55 03/15/18 08:00 Pulse Ox 98 03/15/18 08:00 Intake & Output 03/14/18 03/15/18 03/15/18 18:59 06:59 18:59 Intake Total 240 240 Balance 240 240 Weight 94.2 kg Intake: Oral 240 240 Other: # Voids 1 1 # Bowel Movements 1 - Labs CBC & Chem 7: 03/14/18 06:08 03/14/18 06:08 Labs: Abnormal Lab Results - Last 24 Hours (Table) 03/14/18 Range/Units 06:08 TSH 8.040 H (0.465-4.680) mIU/L
[2018-03-15 11:45] VITALS: BP 126/72
[2018-03-15] MEDS ORDERED: SPIRONOLACTONE 25 MG TAB PO SCH (12:00)
[2018-03-15] MEDS: MULTIVITAMINS, THERA 1 EACH TAB PO SCH (12:22)
[2018-03-15 13:43] VITALS: PULSE 76
[2018-03-15] MEDS: guaiFENesin SYRUP 100MG/5ML 200 MG/10 ML CUP PO PRN (16:00)
[2018-03-16] MEDS ORDERED: AMIODARONE 200 MG TAB PO SCH (09:00)
--- NOTE | 2018-03-19 10:32 | CDI ---
Documentation Clarification Form Date: 03/19/2018 From: Verna CHAN,RN,CCDS Email: [email or web address] Admit Date: 03/13/2018 7:35:00 AM Patient Name: Harmony Arias Visit Number: [id number] Discharge Date: 03/15/2018 5:09:00 PM ATTENTION: The Clinical Documentation Specialists (CDI) and [facility] Coding Staff appreciate your assistance in clarifying documentation. Please respond to the clarification below the line at the bottom and electronically sign. The CDI & [facility] Coding staff will review the response and follow-up if needed. Please note: Queries are made part of the Legal Health Record. If you have any questions, please contact the author of this message via ITS. Dr. Presley Levy Acute CHF unknown EF is documented in HP and progress notes. Acute CHF likely related to RVR. History/Risk Factors: 72 yo presenting to ED notes pt states no known hx of CHF , morbid obesity, Atrial Fibrillation, Asthma, Coronary Artery with stents,, Cancer, COPD, Myocardial Infarction,, Osteoarthritis, Pneumonia, Thyroid Disorder. Presenting S/p Ablation with AFIB RVR and NSTEMI Clinical Indicators: Home Med of PO Lasix, Acute CHF documented, trace edema, BS with crackles and rhonchi noted , cough wth sputum. SOB, cough, sputum production VS 104/62 HR 126 RR 22 Pulse OX 93 BNP:[id number] Echocardiogram Results:contained within the EMR is ECHO performed August with EF 55-60% noting severely dilated LA. Chest X Ray:03/13/2018 Cardiomegaly with pulmonary venous congestion and interstitial prominence which could be related to edema.Bilateral lower lobe airspace disease which could be related to edema or other infiltrate as well as atelectasis.Possible small left pleural effusion. Treatment: IV Lasix , added Spironolactone HCTZ po daily and dc home on po Lasix and Spironolactone HCTZ , rate controlled In your professional opinion, can you please clarify the type of acute CHF if known? Acute Diastolic CHF Acute on Chronic Diastolic CHF Unable to Determine Other, please specify (Last Revision: June 2017) EF 55-60%. acute on chronic diastolic CHF MTDD
--- NOTE | 2018-03-22 09:45 | P.DS ---
Providers Date of admission: 03/13/18 07:35 Attending physician: May Tanner Consults: 03/13/18 07:33 Consult Physician Urgent Consulting Provider: [facility] Consult Reason/Comments: Afib, NSTEMI Do you want consulting provider notified?: Yes Primary care physician: Nirali Elizabeth Hospital Course: Atrial fibrillation with rapid ventricular rate. Patient had recent ablation on 03/08/2018. Acute CHF likely precipitated by RVR. ejection fraction 55-60% Elevated troponin level likely secondary to a fib COPD Coronary artery disease with history of stent placement Osteoarthritis Hypothyroidism Hyperlipidemia History of gout Previous history of smoking Loop recorder placed on 11/23/2017 Morbid obesity with BMI 41.2 Slightly elevated TSH at 5.7 but free T4 level within normal limits DVT prophylaxis patient is already on full anticoagulation Patient is a 72-year-old male with a known history of paroxysmal atrial fibrillation and recently underwent an ablation last day came to ER with the complaints of shortness of breath. Shortness of breath is worsening for the past 2 days. Patient was also having palpitations and sweating. She woke up with worsening symptoms. Patient does take metoprolol and amiodarone as well as on anticoagulation. pt has been evaluated by remote sensing technician and her amiodarone dose was increased . she showed interval improvement. she states that breathing feels better with No chest pain or discomfort. upon discharge her heart rate was controlled. remote sensing technician cleared pt for discharge Pt was instructed about the problems and management plan and Pt verbalized understanding and acceptance Pt is found stable and can be discharged to the community but needs follow up as outpt. pt agrees with appointment and their timing. Discharge exam Gen.: Patient alert awake and oriented X 3, NOT IN DISTRESS CVS: s1-s2, RRR, no murmur CHEST:bilateral CTA, no wheezing or crepitation Abdomen: Soft, no tenderness, no distention, positive bowel sounds Extremities: No leg edema or induration time spent : more than 35 min Patient Condition at Discharge: Stable Plan - Discharge Summary Discharge Rx Participant: No New Discharge Prescriptions: New Amiodarone [Cordarone] 400 mg PO DAILY #60 tab Continue Albuterol Sulfate [Ventolin HFA] 2 puff INHALATION RT-Q6H PRN PRN Reason: Shortness Of Breath Multivitamins, Thera [Multivitamin (formulary)] 1 tab PO DAILY Vit C/E/Zn/Coppr/Lutein/Zeaxan [Preservision Areds 2 Softgel] 1 cap PO BID Atorvastatin [Lipitor] 40 mg PO HS #30 tab Magnesium Oxide [Mag-Ox] 250 mg PO DAILY Cyanocobalamin (Vitamin B-12) [Vitamin B-12] 1,000 mcg PO DAILY Cholecalciferol [Vitamin D3] 1,000 unit PO DAILY Budesonide [Pulmicort] 0.5 mg PO RT-BID guaiFENesin [Mucinex] 600 mg PO BID Ipratropium Nebulized [Atrovent Nebulized 0.2 MG/ML] 0.5 mg INHALATION RT- TID #0 Rivaroxaban [Xarelto] 20 mg PO DAILY Artificial Tears-Hypromellose [Artificial Tear Drops] 1 drops BOTH EYES TID PRN bottle PRN Reason: Dry Eye(S) Furosemide [Lasix] 40 mg PO DAILY #30 tablet Docusate [Colace] 100 mg PO BID PRN PRN Reason: Constipation Potassium Chloride ER [K-Dur 10] 20 meq PO DAILY Aspirin 325 mg PO HS Levothyroxine Sodium [Synthroid] 50 mcg PO DAILY Discontinued Amiodarone [Cordarone] 100 mg PO DAILY No Action Spironolactone-Hctz 25-25Mg [Aldactazide 25-25Mg] 1 each PO DAILY Discharge Medication List Albuterol Sulfate [Ventolin HFA] 2 puff INHALATION RT-Q6H PRN 08/11/13 [History] Multivitamins, Thera [Multivitamin (formulary)] 1 tab PO DAILY 05/31/14 [History ] Vit C/E/Zn/Coppr/Lutein/Zeaxan [Preservision Areds 2 Softgel] 1 cap PO BID 03/02 [History] Atorvastatin [Lipitor] 40 mg PO HS #30 tab 03/04/15 [Rx] Budesonide [Pulmicort] 0.5 mg PO RT-BID 08/30/17 [History] Cholecalciferol [Vitamin D3] 1,000 unit PO DAILY 08/30/17 [History] Cyanocobalamin (Vitamin B-12) [Vitamin B-12] 1,000 mcg PO DAILY 08/30/17 [ History] Magnesium Oxide [Mag-Ox] 250 mg PO DAILY 08/30/17 [History] guaiFENesin [Mucinex] 600 mg PO BID 08/30/17 [History] Ipratropium Nebulized [Atrovent Nebulized 0.2 MG/ML] 0.5 mg INHALATION RT-TID # 0 09/07/17 [Rx] Rivaroxaban [Xarelto] 20 mg PO DAILY 09/11/17 [History] Artificial Tears-Hypromellose [Artificial Tear Drops] 1 drops BOTH EYES TID PRN bottle 09/15/17 [Rx] Furosemide [Lasix] 40 mg PO DAILY #30 tablet 09/15/17 [Rx] Docusate [Colace] 100 mg PO BID PRN 11/17/17 [History] Potassium Chloride ER [K-Dur 10] 20 meq PO DAILY 11/17/17 [History] Aspirin 325 mg PO HS 11/23/17 [History] Levothyroxine Sodium [Synthroid] 50 mcg PO DAILY 01/03/18 [History] Amiodarone [Cordarone] 400 mg PO DAILY #60 tab 03/15/18 [Rx] Spironolactone-Hctz 25-25Mg [Aldactazide 25-25Mg] 1 each PO DAILY 03/15/18 [ History] Follow up Appointment(s)/Referral(s): Nirali Elizabeth MD [Primary Care Provider] - 03/22/18 10:30 am () Rajesh Flynn MD [STAFF PHYSICIAN] - 03/28/18 3:15 pm () Patient Instructions/Handouts: A-fib (Atrial Fibrillation) (DC) Activity/Diet/Wound Care/Special Instructions: cardiac diet activity is limited till you see your doctor Discharge Disposition: HOME SELF-CARE
== END 2018-03-15 17:09 | disposition home or self-care (01) | DRG 280 ==
LOC: EC 05:29 → 3SCARD 07:35
PROVIDERS: ADMIT Hospitalist; ATTEND Hospitalist
DX: I48.0 Paroxysmal atrial fibrillation (principal); I21.4 Non-ST elevation (NSTEMI) myocardial infarction; I50.33 Acute on chronic diastolic (congestive) heart failure; Z68.41 Body mass index [BMI] 40.0-44.9, adult; I11.0 Hypertensive heart disease with heart failure; E66.01 Morbid (severe) obesity due to excess calories; I51.3 Intracardiac thrombosis, not elsewhere classified; J44.9 Chronic obstructive pulmonary disease, unspecified; E78.5 Hyperlipidemia, unspecified; I25.10 Atherosclerotic heart disease of native coronary artery without angina pectoris; E89.0 Postprocedural hypothyroidism; I44.7 Left bundle-branch block, unspecified; M19.90 Unspecified osteoarthritis, unspecified site; M81.0 Age-related osteoporosis without current pathological fracture; K44.9 Diaphragmatic hernia without obstruction or gangrene; H35.30 Unspecified macular degeneration; I25.2 Old myocardial infarction; Z79.01 Long term (current) use of anticoagulants; Z79.82 Long term (current) use of aspirin; Z79.890 Hormone replacement therapy; Z79.51 Long term (current) use of inhaled steroids; Z79.899 Other long term (current) drug therapy; Z87.01 Personal history of pneumonia (recurrent); Z87.39 Personal history of other diseases of the musculoskeletal system and connective tissue; Z85.828 Personal history of other malignant neoplasm of skin; Z90.49 Acquired absence of other specified parts of digestive tract; Z95.5 Presence of coronary angioplasty implant and graft; Z90.710 Acquired absence of both cervix and uterus; Z98.42 Cataract extraction status, left eye; Z98.41 Cataract extraction status, right eye; Z88.5 Allergy status to narcotic agent; Z87.891 Personal history of nicotine dependence; Z82.49 Family history of ischemic heart disease and other diseases of the circulatory system; Z80.3 Family history of malignant neoplasm of breast; Z82.5 Family history of asthma and other chronic lower respiratory diseases; Z82.3 Family history of stroke
CPT/HCPCS: 36415; 71045; 80048; 80053; 80061; 82550; 82553; 83735; 83880; 84439; 84443; 84484; 85025; 85610; 85730; 93005; 94640; 96365; 96366; 96374; 96375; 96376; 99285

== ENCOUNTER → 2018-07-25 | Outpatient (CLI) | payer MEDICARE | END | disposition home or self-care (01) | LOC: LABWHC1 10:06 | PROVIDERS: ATTEND Internal Medicine Endocrinology, Diabetes & Metabolism | DX: E03.8 Other specified hypothyroidism (principal) | CPT/HCPCS: 36415; 84443 ==

== ENCOUNTER → 2018-08-08 | Outpatient (CLI) | payer MEDICARE ==
--- NOTE | 2018-08-08 09:48 | XR ---
EXAMINATION TYPE: XR ankle complete LT DATE OF EXAM: 08/08/2018 COMPARISON: NONE HISTORY: Pain TECHNIQUE: 3 views of the left ankle are submitted for evaluation. FINDINGS: There is no evidence for fracture or dislocation. Ankle mortise is intact. Soft tissues are within normal limits. IMPRESSION: 1. No evidence for acute fracture.
== END | disposition home or self-care (01) ==
LOC: RADXRYALE 09:32
PROVIDERS: ATTEND Internal Medicine
DX: M25.572 Pain in left ankle and joints of left foot (principal)

== ENCOUNTER 2018-10-22 13:25 | Inpatient (IN) | payer MEDICARE ==
--- NOTE | 2018-10-22 14:24 | ED ---
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 Patient states she has a history of COPD. Patient denies any fever chills. Patient denies chest pain or palpitations. Patient denies headache patient denies numbness weakness. Patient denies any abdominal pain patient denies nausea vomiting diarrhea. Patient denies any leg swelling or calf tenderness. - Related Data Home Medications Medication Instructions Recorded Confirmed Albuterol Sulfate [Ventolin HFA] 2 puff INHALATION RT-Q6H PRN 08/11/13 10/22/18 Vit C/E/Zn/Coppr/Lutein/Zeaxan 1 cap PO BID 03/02/15 10/22/18 [Preservision Areds 2 Softgel] Budesonide [Pulmicort] 0.5 mg INHALATION RT-BID 08/30/17 10/22/18 Cholecalciferol [Vitamin D3 (25 1,000 unit PO DAILY 08/30/17 10/22/18 Mcg = 1000 Iu)] Magnesium Oxide [Mag-Ox] 250 mg PO DAILY 08/30/17 10/22/18 guaiFENesin [Mucinex] 600 mg PO BID 08/30/17 10/22/18 Rivaroxaban [Xarelto] 20 mg PO DAILY 09/11/17 10/22/18 Allopurinol [Zyloprim] 100 mg PO DAILY 10/22/18 10/22/18 Amiodarone [Cordarone] 200 mg PO DAILY 10/22/18 10/22/18 Aspirin EC [Ecotrin Low Dose] 81 mg PO HS 10/22/18 10/22/18 Biotin 10,000 mcg PO DAILY 10/22/18 10/22/18 Levothyroxine Sodium [Synthroid] 75 mcg PO DAILY@0500 10/22/18 10/22/18 Potassium Chloride ER [K-Dur 20] 20 meq PO DAILY 10/22/18 10/22/18 Previous Rx's Medication Instructions Recorded Atorvastatin [Lipitor] 40 mg PO HS #30 tab 03/04/15 Ipratropium Nebulized [Atrovent 0.5 mg INHALATION RT-TID #0 09/07/17 Nebulized 0.2 MG/ML] Furosemide [Lasix] 40 mg PO DAILY #30 tablet 09/15/17 Allergies Allergy/AdvReac Type Severity Reaction Status Date / Time codeine Allergy Itching Verified 10/22/18 14:55 Review of Systems ROS Statement: Those systems with pertinent positive or pertinent negative responses have been documented in the HPI. ROS Other: All systems not noted in ROS Statement are negative. Past Medical History Past Medical History: Atrial Fibrillation, Asthma, Coronary Artery Disease (CAD), Cancer, COPD, Myocardial Infarction (DE), Osteoarthritis (OA), Pneumonia, Thyroid Disorder Additional Past Medical History / Comment(s): See Dr Trimble's H&P,Gout, hiatal hernia, MACULAR DEGENERATION, SKIN CANCER, degenerative disc disease,osteoporosis Last Myocardial Infarction Date:: 2011 History of Any Multi-Drug Resistant Organisms: None Reported Past Surgical History: Ablation, Cholecystectomy, Heart Catheterization With Stent, Hysterectomy, Orthopedic Surgery, Tonsillectomy Additional Past Surgical History / Comment(s): right shoulder, left wrist. Thyroid Nodule removed,cataracts, LOOP RECORDER-11/23/17 CHRIO ABLATION Feb WITH CARDIOVERTION Past Anesthesia/Blood Transfusion Reactions: No Reported Reaction Date of Last Stent Placement:: 2011 Type of Cardiac Device: Loop Device Placement Date:: 11/23/17 Past Psychological History: No Psychological Hx Reported Smoking Status: Former smoker Past Alcohol Use History: None Reported Past Drug Use History: None Reported - Past Family History Mother Family Medical History: Cancer, Congestive Heart Failure (CHF), Myocardial Infarction (DE), Pneumonia, Pulmonary Embolus Additional Family Medical History / Comment(s): breast CA Father Family Medical History: CVA/TIA, Myocardial Infarction (DE) General Exam - General Exam Comments Initial Comments: GENERAL: Patient is well-developed and well-nourished. Patient is nontoxic and well- hydrated and is in mild distress. ENT: Neck is soft and supple. No significant lymphadenopathy is noted. Oropharynx is clear. Moist mucous membranes. Neck has full range of motion without eliciting any pain. EYES: The sclera were anicteric and conjunctiva were pink and moist. Extraocular movements were intact and pupils were equal round and reactive to light. Eyelids were unremarkable. PULMONARY: Patient has expiratory wheezing. CARDIOVASCULAR: There is a regular rate and rhythm without any murmurs gallops or rubs. ABDOMEN: Soft and nontender with normal bowel sounds. No palpable organomegaly was noted. There is no palpable pulsatile mass. SKIN: Skin is clear with no lesions or rashes and otherwise unremarkable. NEUROLOGIC: Patient is alert and oriented x3. Cranial nerves II through XII are grossly intact. Motor and sensory are also intact. Normal speech, volume and content. Symmetrical smile. MUSCULOSKELETAL: Normal extremities with adequate strength and full range of motion. LYMPHATICS: No significant lymphadenopathy is noted PSYCHIATRIC: Normal psychiatric evaluation. Limitations: no limitations Course Vital Signs 10/22/18 10/22/18 10/22/18 13:54 15:08 15:32 Temperature 98.3 F Pulse Rate 80 75 77 Respiratory 20 18 18 Rate Blood Pressure 144/65 O2 Sat by Pulse 90 L Oximetry Medical Decision Making - Medical Decision Making EKG shows normal sinus rhythm at 74 bpm [place] interval is 122 QRS is 118 QT inter josé is 424 QTC is 470. Chest x-ray shows a left lingular pneumonia. I started antibiotics on the p atient. Patient at this point time did not meet SIRS criteria. I spoke with Dr. HEATH except for the patient admitted the patient I wrote admitting orders I continued antibiotics on the floor I continue breathing treatments and steroids on the floor as well. - Lab Data Result diagrams: 10/22/18 14:55 10/22/18 14:55 Lab Results 10/22/18 10/22/18 10/22/18 Range/Units 14:55 14:55 14:55 WBC 7.9 (3.8-10.6) k/uL RBC 4.75 (3.80-5.40) m/uL Hgb 12.3 (11.4-16.0) gm/dL Hct 39.5 (34.0-46.0) % MCV 83.2 (80.0-100.0) fL MCH 26.0 (25.0-35.0) pg MCHC 31.2 (31.0-37.0) g/dL RDW 17.6 H (11.5-15.5) % Plt Count 222 (150-450) k/uL Neutrophils % 65 % Lymphocytes % 21 % Monocytes % 7 % Eosinophils % 4 % Basophils % 1 % Neutrophils # 5.2 (1.3-7.7) k/uL Lymphocytes # 1.6 (1.0-4.8) k/uL Monocytes # 0.5 (0-1.0) k/uL Eosinophils # 0.3 (0-0.7) k/uL Basophils # 0.1 (0-0.2) k/uL Hypochromasia Slight Anisocytosis Slight PT (9.0-12.0) sec INR (<1.2) APTT (22.0-30.0) sec Sodium 139 (137-145) mmol/L Potassium 3.7 (3.5-5.1) mmol/L Chloride 101 (98-107) mmol/L Carbon Dioxide 27 (22-30) mmol/L Anion Gap 11 mmol/L BUN 25 H (7-17) mg/dL Creatinine 1.20 H (0.52-1.04) mg/dL Est GFR (CKD-EPI)AfAm 52 (>60 ml/min/1.73 sqM) Est GFR (CKD-EPI)NonAf 45 (>60 ml/min/1.73 sqM) Glucose 91 (74-99) mg/dL Plasma Lactic Acid Malik (0.7-2.0) mmol/L Calcium 9.6 (8.4-10.2) mg/dL Magnesium 1.9 (1.6-2.3) mg/dL Total Bilirubin 0.7 (0.2-1.3) mg/dL AST 27 (14-36) U/L ALT 19 (9-52) U/L Alkaline Phosphatase 115 (38-126) U/L Troponin I (0.000-0.034) ng/mL NT-Pro-B Natriuret Pep 1420 pg/mL Total Protein 7.9 (6.3-8.2) g/dL Albumin 4.4 (3.5-5.0) g/dL 10/22/18 10/22/18 10/22/18 Range/Units 14:55 14:55 14:55 WBC (3.8-10.6) k/uL RBC (3.80-5.40) m/uL Hgb (11.4-16.0) gm/dL Hct (34.0-46.0) % MCV (80.0-100.0) fL MCH (25.0-35.0) pg MCHC (31.0-37.0) g/dL RDW (11.5-15.5) % Plt Count (150-450) k/uL Neutrophils % % Lymphocytes % % Monocytes % % Eosinophils % % Basophils % % Neutrophils # (1.3-7.7) k/uL Lymphocytes # (1.0-4.8) k/uL Monocytes # (0-1.0) k/uL Eosinophils # (0-0.7) k/uL Basophils # (0-0.2) k/uL Hypochromasia Anisocytosis PT 13.3 H (9.0-12.0) sec INR 1.3 H (<1.2) APTT 32.3 H (22.0-30.0) sec Sodium (137-145) mmol/L Potassium (3.5-5.1) mmol/L Chloride (98-107) mmol/L Carbon Dioxide (22-30) mmol/L Anion Gap mmol/L BUN (7-17) mg/dL Creatinine (0.52-1.04) mg/dL Est GFR (CKD-EPI)AfAm (>60 ml/min/1.73 sqM) Est GFR (CKD-EPI)NonAf (>60 ml/min/1.73 sqM) Glucose (74-99) mg/dL Plasma Lactic Acid Malik 0.9 (0.7-2.0) mmol/L Calcium (8.4-10.2) mg/dL Magnesium (1.6-2.3) mg/dL Total Bilirubin (0.2-1.3) mg/dL AST (14-36) U/L ALT (9-52) U/L Alkaline Phosphatase (38-126) U/L Troponin I <0.012 (0.000-0.034) ng/mL NT-Pro-B Natriuret Pep pg/mL Total Protein (6.3-8.2) g/dL Albumin (3.5-5.0) g/dL Critical Care Time Critical Care Time: Yes Total Critical Care Time: 35 Disposition Clinical Impression: Acute exacerbation of chronic obstructive airways disease, Pneumonia Disposition: ADMITTED IP TO THIS HOSP Referrals: Glenn,Nirali, MD [Primary Care Provider] - 1-2 days Time of Disposition: 16:27
[2018-10-22] MEDS ORDERED: ALBUTEROL NEBULIZED 2.5 MG/3 ML INHALATION STA (14:36)
[2018-10-22] MEDS ORDERED: methylPREDNISolone SOD SUCCI 125 MG/2 ML VIAL IV STA (14:36)
[2018-10-22] MEDS ORDERED: IPRATROPIUM 0.5 MG/2.5 ML NEBU INHALATION STA (14:36)
[2018-10-22 15:22] LABS: Albumin 4.4 g/dL (3.5-5.0); Calcium 9.6 mg/dL (8.4-10.2); Magnesium 1.9 mg/dL (1.6-2.3); Potassium 3.7 mmol/L (3.5-5.1); Total Bilirubin 0.7 mg/dL (0.2-1.3); Total Protein 7.9 g/dL (6.3-8.2)
[2018-10-22 15:25] LABS: Anisocytosis Slight; Basophils # (A) 0.1 k/uL (0-0.2); Basophils % (A) 1 %; Eosinophils # (A) 0.3 k/uL (0-0.7); Eosinophils % (A) 4 %; HCT 39.5 % (34.0-46.0); HGB 12.3 gm/dL (11.4-16.0); Hypochromasia Slight; Lymphocytes # (A) 1.6 k/uL (1.0-4.8); Lymphocytes % (A) 21 %; MCHC 31.2 g/dL (31.0-37.0); MCV 83.2 fL (80.0-100.0); Mean Platelet Volume 7.4; Monocytes # (A) 0.5 k/uL (0-1.0); Monocytes % (A) 7 %; Neutrophils # (A) 5.2 k/uL (1.3-7.7); Neutrophils % (A) 65 %; Platelet Count 222 k/uL (150-450); RBC 4.75 m/uL (3.80-5.40); RDW 17.6 % (11.5-15.5); WBC 7.9 k/uL (3.8-10.6)
[2018-10-22 15:31] LABS: INR 1.3 (<1.2); Partial Thromboplastin Time 32.3 sec (22.0-30.0); Prothrombin Time 13.3 sec (9.0-12.0)
--- NOTE | 2018-10-22 15:45 | XR ---
EXAMINATION TYPE: XR chest 2V DATE OF EXAM: 10/22/2018 COMPARISON: 03/13/2018 HISTORY: Shortness of breath TECHNIQUE: Frontal and lateral views of the chest are obtained. FINDINGS: Scattered senescent parenchymal changes noted. Hyperinflation compatible with COPD. Patchy density in the region of the lingula may reflect developing infiltrate. Correlate clinically a nd progress studies may be of value. Heart size is stable. Mediastinal structures are stable and grossly unremarkable. No evidence for hilar prominence. Degenerative changes dorsal spine. IMPRESSION: 1. Patchy density in the region of the lingula may reflect developing infiltrate. Correlate clinicall y and progress studies may be of value.
[2018-10-22] MEDS ORDERED: LEVOFLOXACIN 750MG-D5W PMX 750 MG in DEXTROSE/WATER 1 150ML.BAG IVPB STA (16:28)
[2018-10-22] MEDS ORDERED: PNEUMONIA PROTOCOL UTILIZED 1 EACH MISC PO PRN (16:28)
[2018-10-22] MEDS ORDERED: PIPERACILLIN-TAZOBACTAM 3.375 GM in SODIUM CHLORIDE 0.9% 100 ML IVPB STA (16:28)
[2018-10-22] MEDS ORDERED: ALBUTEROL NEBULIZED 2.5 MG/3 ML INHALATION PRN (16:28)
[2018-10-22] MEDS ORDERED: IPRATROPIUM-ALBUTEROL 3 ML NEB INHALATION PRN (16:28)
[2018-10-22] MEDS: VIT A,C & E-LUTEIN-MINERALS 1 EACH TAB PO SCH (20:29)
[2018-10-22] MEDS: BUDESONIDE 0.5 MG/2 ML NEBU INHALATION SCH (20:29)
[2018-10-22] MEDS: ATORVASTATIN 40 MG TAB PO SCH (20:29)
[2018-10-22] MEDS: ASPIRIN 81 MG PO SCH (20:29)
[2018-10-22] MEDS: FORMOTEROL FUMARATE 20 MCG/2 ML NEBU INHALATION SCH (20:29)
[2018-10-22] MEDS: IPRATROPIUM-ALBUTEROL 3 ML NEB INHALATION SCH (20:29)
[2018-10-22] MEDS: guaiFENesin 600 MG TABLET.ER PO SCH (20:29)
[2018-10-22] MEDS: methylPREDNISolone SOD SUCCI 125 MG/2 ML VIAL IV SCH ×2 (20:29→23:50)
[2018-10-22 20:50] LABS: Glucose,Whole Blood 184 mg/dL (75-99)
[2018-10-22] MEDS: INSULIN ASPART (NovoLOG) 100 UNIT/ML VIAL SQ SCH (20:56)
[2018-10-22 21:42] LABS: Appearance,Urine Clear (Clear); Bilirubin,Urine Negative (Negative); Blood,Urine Negative (Negative); Color,Urine Yellow; Glucose,Urine (UA) Negative (Negative); Ketones,Urine Negative (Negative); Leukocyte Esterase,Urine Negative (Negative); Nitrite,Urine Negative (Negative); PH, Urine 5.5 (5.0-8.0); Protein,Urine Trace (Negative); Specific Gravity,Urine 1.022 (1.001-1.035); Urobilinogen,Urine <2.0 mg/dL (<2.0)
--- NOTE | 2018-10-22 21:55 | HP ---
HISTORY AND PHYSICAL CHIEF COMPLAINT: Cough and sputum and shortness of breath. HISTORY OF PRESENT ILLNESS: This 73-year-old woman with a past medical history of asthma, history of COPD, history of CAD, atrial ablation, myocardial infarction, history of DJD, history of pneumonia, history of cardiac ablation, history of CAD/stent being followed by Dr. Elizabeth in the outpatient setting was not feeling well over the past several weeks. The patient initially had illness on of last month with sputum. The patient is on a course of antibiotics. After 1 week later because of lack of improvement patient had a second course of antibiotics. Today, the patient evaluated by Dr. Leary, the sports doctor. Because of increased shortness of breath and other pain, increased cough and sputum, increasing yellowish mucopurulent sputum, the patient was sent to [facility] and was admitted for further evaluation and treatment. Chest x-ray showed possible lingular pneumonia and possible bibasilar bilateral pneumonia. There is no history of any fever, rigors or chills. No history of headache, loss of consciousness or seizures. PAST MEDICAL HISTORY: Asthma, COPD, history of CAD, history of atrial fibrillation, history of myocardial infarction, DJD, history of CAD/stent. MEDICATIONS: Prior to admission home medications are: 1. Mucinex 600 mg p.o. b.i.d. 2. PreserVision 1 capsule p.o. b.i.d. 3. Xarelto 20 mg p.o. daily. 4. K-Dur 20 mEq p.o. daily. 5. Magnesium oxide 250 mg daily. 6. Synthroid 75 mcg p.o. daily. 7. Atrovent 0.5 t.i.d. 8. Lasix 40 mg p.o. daily. 9. Vitamin D3 1000 daily. 10.Pulmicort 0.5 mg b.i.d. 11.Biotin 10,000 mcg p.o. daily. 12.Lipitor 40 mg q.h.s. 13.Ecotrin 81 mg q.h.s. 14.Cordarone 200 mg p.o. daily. 15.Zyloprim 100 mg p.o. daily. 16.Albuterol sulfate 2 puffs q.6h p.r.n. ALLERGIES: CODEINE. FAMILY HISTORY: History of CHF, myocardial infarction, pneumonia, pulmonary embolism, breast cancer in the family. SOCIAL HISTORY: Previous history of smoking. No history of current smoking or alcohol intake. REVIEW OF SYSTEMS: ENT: Diminished vision. No diminished hearing. CARDIOVASCULAR as mentioned earlier. RESPIRATORY: As mentioned earlier. GI no nausea or vomiting. no dysuria or hematuria. CENTRAL NERVOUS SYSTEM: No numbness or weakness. ALLERGY/IMMUNOLOGY: As mentioned earlier. MUSCULOSKELETAL: As mentioned earlier. HEMATOLOGY/ONCOLOGY: No history of anemia. ENDOCRINE: Hypothyroidism. CONSTITUTIONAL: As mentioned earlier. Dermatology: Negative. Rheumatology: Negative. Psychiatry: As mentioned earlier. PHYSICAL EXAM: Patient is alert and oriented times three. Pulse 74, blood pressure 117/80, respirations 20, temperature 97.4, pulse ox 97% on 2 L. HEENT: Conjunctivae normal. NECK: No JVD. CARDIOVASCULAR: S1, S2 muffled. RESPIRATION: Breath sounds diminished in the bases. Breathing efforts are markedly increased. Accessory muscles of respiration acting. Bilateral scattered rhonchi and crackles. ABDOMEN: Soft, nontender. No mass palpable. LEGS: No edema. No swelling. NERVOUS SYSTEM: Higher functions as mentioned earlier. Moves all 4 limbs. No focal motor or sensory deficits. LYMPHATICS: No lymph nodes palpable in the neck, axilla or groin. SKIN: No ulcer, rashes or bleeding. JOINTS: No active deforming arthropathy. LABS: WBC 7.9, hemoglobin 12.3. INR is 1.3. Creatinine is 1.2. ASSESSMENT: 1. Chronic obstructive pulmonary disease, acute exacerbation with bilateral pneumonia with failure of outpatient treatment, possibly gram-negative. 2. Increased creatinine with mild acute renal failure possible acute tubular necrosis. 3. Atrial fibrillation. 4. History of asthma. 5. History of coronary artery disease. 6. History of myocardial infarction. 7. History of degenerative joint disease. 8. History of pneumonia. 9. History of macular degeneration. 10.History of degenerative joint disease. 11.History of cholecystectomy. 12.History of coronary artery disease/ stent. 13.History of cardioversion. 14.Remote history of nicotine dependence. RECOMMENDATIONS AND DISCUSSION: In this 73-year-old woman who presented with multiple complex medical issues, we will monitor the patient closely, continue the current medications, management and symptomatic treatment. We will recommend intensive bronchodilator treatment, IV steroids, monitor blood sugars closely, broad-spectrum antibiotics in the form of Zosyn, Levaquin has been initiated. I would also consult Dr. Leary. DVT prophylaxis. Resume the home medications. Medication reconciliation done. Prognosis guarded because of multiple complex medical issues. Further recommendations to follow. A copy of this dictation being forwarded to Dr. Elizabeth who is the primary physician. GWENDOLYN / TRISTAN: [id number] /
[2018-10-22] MEDS: PIPERACILLIN-TAZOBACTAM 3.375 GM in SODIUM CHLORIDE 0.9% 100 ML IVPB SCH (23:49)
[2018-10-23] MEDS: ALPRAZolam 0.25 MG TAB PO PRN (00:38)
[2018-10-23] MEDS: LEVOTHYROXINE 75 MCG TAB PO SCH (05:56)
[2018-10-23] MEDS: methylPREDNISolone SOD SUCCI 125 MG/2 ML VIAL IV SCH ×3 (05:56→17:19)
[2018-10-23 07:05] LABS: Glucose,Whole Blood 160 mg/dL (75-99)
[2018-10-23] MEDS: IPRATROPIUM-ALBUTEROL 3 ML NEB INHALATION SCH ×4 (07:08→19:42)
[2018-10-23] MEDS: FORMOTEROL FUMARATE 20 MCG/2 ML NEBU INHALATION SCH ×2 (07:09→19:57)
[2018-10-23] MEDS: BUDESONIDE 0.5 MG/2 ML NEBU INHALATION SCH ×2 (07:09→19:43)
[2018-10-23] MEDS: ACETAMINOPHEN TAB 325 MG TAB PO PRN (07:38)
[2018-10-23] MEDS: POTASSIUM CHLORIDE ER 20 MEQ TAB.ER PO SCH (07:39)
[2018-10-23] MEDS: MAGNESIUM OXIDE 400 MG TAB PO SCH (07:39)
[2018-10-23] MEDS: FUROSEMIDE 40 MG TAB PO SCH (07:39)
[2018-10-23] MEDS: CHOLECALCIFEROL 1,000 UNIT TAB PO SCH (07:39)
[2018-10-23] MEDS: AMIODARONE 200 MG TAB PO SCH (07:39)
[2018-10-23] MEDS: guaiFENesin 600 MG TABLET.ER PO SCH ×2 (07:39→21:05)
[2018-10-23] MEDS: PANTOPRAZOLE 40 MG TABLET PO SCH (07:39)
[2018-10-23] MEDS: ALLOPURINOL 100 MG TAB PO SCH (07:39)
[2018-10-23] MEDS: PIPERACILLIN-TAZOBACTAM 3.375 GM in SODIUM CHLORIDE 0.9% 100 ML IVPB SCH ×2 (07:40→15:06)
[2018-10-23] MEDS: RIVAROXABAN 20 MG TAB PO SCH (07:40)
[2018-10-23] MEDS: VIT A,C & E-LUTEIN-MINERALS 1 EACH TAB PO SCH ×2 (07:40→21:06)
[2018-10-23] MEDS: INSULIN ASPART (NovoLOG) 100 UNIT/ML VIAL SQ SCH ×4 (07:41→21:05)
[2018-10-23 08:35] LABS: Anisocytosis Slight; Basophils % (A) 0 %; Eosinophils # (A) 0.1 k/uL (0-0.7); Eosinophils % (A) 0 %; HCT 37.9 % (34.0-46.0); HGB 11.7 gm/dL (11.4-16.0); Hypochromasia Slight; Lymphocytes # (A) 0.6 k/uL (1.0-4.8); Lymphocytes % (A) 4 %; MCH 25.9 pg (25.0-35.0); MCHC 30.7 g/dL (31.0-37.0); MCV 84.4 fL (80.0-100.0); Mean Platelet Volume 7.9; Monocytes # (A) 0.2 k/uL (0-1.0); Monocytes % (A) 2 %; Neutrophils # (A) 13.8 k/uL (1.3-7.7); Neutrophils % (A) 94 %; Platelet Count 232 k/uL (150-450); RDW 17.5 % (11.5-15.5); WBC 14.7 k/uL (3.8-10.6)
--- NOTE | 2018-10-23 08:46 | XR ---
EXAMINATION TYPE: XR chest 2V DATE OF EXAM: 10/23/2018 COMPARISON: 10/22/2018 HISTORY: Shortness of breath and follow-up for pneumonia TECHNIQUE: Frontal and lateral views of the chest are obtained. FINDINGS: Lingular airspace disease persists. Additionally there is new moderate interstitial pulmon johnnie edema and coarsened interstitial lung markings. Cardiomediastinal silhouette is again mildly enla rged with diffuse osseous demineralization and can also seen. There is engorgement of the superior ve na cava/right azygos confluence. Pulmonary hyperinflation and flattening of the diaphragms representi ng underlying COPD. No pleural effusion. Cardiac loop recorder is incidentally seen. Mild degenerativ e changes of the spine. IMPRESSION: In addition to a lingular pneumonia that appears stable. There is new moderate pulmonary vascular con gestion. Consider congestive heart failure or noncardiogenic fluid overload
[2018-10-23] MEDS ORDERED: NON-FORMULARY DRUG (Biotin [Biotin] 10,000 MCG) PO SCH (09:00)
[2018-10-23 09:16] LABS: Calcium 9.8 mg/dL (8.4-10.2)
[2018-10-23] MEDS ORDERED: ALBUTEROL NEBULIZED 2.5 MG/3 ML INHALATION PRN (10:55)
[2018-10-23 12:06] LABS: Glucose,Whole Blood 165 mg/dL (75-99)
--- NOTE | 2018-10-23 12:14 | PN ---
PROGRESS NOTE DATE OF SERVICE: 10/23/2018 This is a 73-year-old woman was admitted with bilateral pneumonia, COPD exacerbation with failure of 2 courses of antibiotics outpatient[address] Dr. Leary is following the patient closely. The patient is on broad-spectrum IV antibiotics. Repeat chest x-ray was reviewed by personally by me showed, still significant opacities passed bilaterally. PAST MEDICAL HISTORY: Reviewed. REVIEW OF SYSTEMS: CARDIOVASCULAR SYSTEM: No angina. RESPIRATION: As mentioned earlier. GI: No nausea. : As mentioned earlier. CURRENT MEDICATIONS ARE REVIEWED INCLUDE;: 1. Tylenol p.r.n. 2. Ventolin 2.5 .6 p.r.n. 3. DuoNeb q.i.d. and p.r.n. 4. Zyloprim 100 mg p.r.n. Xanax 0.5 t.i.d. 5. Cordarone 200 mg. 6. Aspirin 81 mg q.h.s. 7. Lipitor 40 mg daily Pulmicort 0.5 mg b.i.d. 8. Vitamin D3. 9. Perforomist. 10.Lasix 40 mg p.o. daily. 11.Mucinex 600 mg b.i.d. 12.Levaquin 750 daily. 13.Synthroid 75 mcg daily. 14.Magnesium oxide. 15.Solu-Medrol 60 IV q.6h. 16.FABIANA. 17.Protonix 40 mg daily Zosyn 3.5 IV q.i.d. 18.Acute 220 mcg pain Xarelto 20 mg p.o. daily. PHYSICAL EXAM: Patient is alert oriented pulse 74, blood pressure is 147/70, respiration 20, temperature 97.6, pulse ox 98% on room air skin: No rash cardiac: Breath sounds diminished at the bases bilateral scattered rhonchi expiratory wheezing also present. ABDOMEN: Soft nontender legs are no central labs WBC 14.2, hemoglobin 11.2 sodium 137 potassium 4 assessment. 1. Chronic obstructive pulmonary disease acute exacerbation with failure of outpatient treatment. 2. Possible bibasilar bilateral pneumonia possibly gram-negative with failure of outpatient treatment. 3. Increased creatinine with mild acute renal failure possibly secondary to acute tubular necrosis. 4. Atrial fibrillation chronic persistent. 5. History of asthma. 6. History of coronary artery disease. 7. History of myocardial infarction. 8. History of degenerative joint disease. 9. History of pneumonia. 10.History of macular degeneration. 11.History of degenerative joint disease. 12.History of cholecystectomy. 13.History of coronary artery disease, stent. 14.History of cardioversion. 15.Remote history of nicotine dependence. 16.Atrial fibrillation, paroxysmal. RECOMMENDATION: Recommend to continue current management, continue with the monitoring and symptomatic treatment. Otherwise continue to monitor, steroids. Repeat x-ray noted. Closely follow with Pulmonary. Guarded prognosis because of multiple complex medical issues and further recommendations to follow. MMODL / IJN: [id number] /
[2018-10-23] MEDS ORDERED: POLYETHYLENE GLYCOL 3350 17 GM POWD.PACK PO SCH (15:00)
[2018-10-23] MEDS: POLYETHYLENE GLYCOL 3350 17 GM POWD.PACK PO SCH (15:06)
[2018-10-23 16:44] LABS: Glucose,Whole Blood 174 mg/dL (75-99)
[2018-10-23] MEDS ORDERED: LEVOFLOXACIN 750MG-D5W PMX 750 MG in DEXTROSE/WATER 1 150ML.BAG IVPB SCH (17:00)
--- NOTE | 2018-10-23 18:30 | P.CNPUL ---
History of Present Illness Consult date: 10/23/18 Reason for consult: dyspnea, cough, pneumonia Chief complaint: Cough shortness of breath failure outpatient therapy History of present illness: This is a 73-year-old female well-known to me, patient was seen in the office for non-resolving cough with greenish sputum production and shortness of breath of 2 week duration patient has 2 courses of antibiotics with steroids without any significant improvement she was advised to be admitted has failed outpatient therapy, her blood cultures are negative, white cell count is elevated 14,700, chest x-ray on October 22 and reviewed there revealed infiltrates in lingular lobe likely left midlung field pneumonia, with finding of congestive heart failure Review of Systems All systems: negative Past Medical History Past Medical History: Atrial Fibrillation, Asthma, Coronary Artery Disease ( CAD), Cancer, COPD, Myocardial Infarction (PR), Osteoarthritis (OA), Pneumonia, Thyroid Disorder Additional Past Medical History / Comment(s): See Dr Trimble's H&P,Gout, hiatal hernia, MACULAR DEGENERATION, SKIN CANCER, degenerative disc disease,osteoporosis Last Myocardial Infarction Date:: 2011 History of Any Multi-Drug Resistant Organisms: None Reported Past Surgical History: Ablation, Cholecystectomy, Heart Catheterization With Stent, Hysterectomy, Orthopedic Surgery, Tonsillectomy Additional Past Surgical History / Comment(s): right shoulder, left wrist. Thyroid Nodule removed,cataracts, LOOP RECORDER-11/23/17 CHRIO ABLATION Feb WITH CARDIOVERTION Past Anesthesia/Blood Transfusion Reactions: No Reported Reaction Date of Last Stent Placement:: 2011 Type of Cardiac Device: Loop Device Placement Date:: 11/23/17 Past Psychological History: No Psychological Hx Reported Smoking Status: Former smoker Past Alcohol Use History: None Reported Additional Past Alcohol Use History / Comment(s): started smoking at age 15(1961) and quit 2006 smoked 2ppd Past Drug Use History: None Reported - Past Family History Mother Family Medical History: Cancer, Congestive Heart Failure (CHF), Myocardial Infarction (PR), Pneumonia, Pulmonary Embolus Additional Family Medical History / Comment(s): breast CA Father Family Medical History: CVA/TIA, Myocardial Infarction (PR) Medications and Allergies Home Medications Medication Instructions Recorded Confirmed Type Albuterol Sulfate [Ventolin HFA] 2 puff INHALATION RT-Q6H PRN 08/11/13 10/22/18 History Vit C/E/Zn/Coppr/Lutein/Zeaxan 1 cap PO BID 03/02/15 10/22/18 History [Preservision Areds 2 Softgel] Atorvastatin [Lipitor] 40 mg PO HS #30 tab 03/04/15 10/22/18 Rx Budesonide [Pulmicort] 0.5 mg INHALATION RT-BID 08/30/17 10/22/18 History Cholecalciferol [Vitamin D3 (25 1,000 unit PO DAILY 08/30/17 10/22/18 History Mcg = 1000 Iu)] Magnesium Oxide [Mag-Ox] 250 mg PO DAILY 08/30/17 10/22/18 History guaiFENesin [Mucinex] 600 mg PO BID 08/30/17 10/22/18 History Ipratropium Nebulized [Atrovent 0.5 mg INHALATION RT-TID #0 09/07/17 10/22/18 Rx Nebulized 0.2 MG/ML] Rivaroxaban [Xarelto] 20 mg PO DAILY 09/11/17 10/22/18 History Furosemide [Lasix] 40 mg PO DAILY #30 tablet 09/15/17 10/22/18 Rx Allopurinol [Zyloprim] 100 mg PO DAILY 10/22/18 10/22/18 History Amiodarone [Cordarone] 200 mg PO DAILY 10/22/18 10/22/18 History Aspirin EC [Ecotrin Low Dose] 81 mg PO HS 10/22/18 10/22/18 History Biotin 10,000 mcg PO DAILY 10/22/18 10/22/18 History Levothyroxine Sodium [Synthroid] 75 mcg PO DAILY@0500 10/22/18 10/22/18 History Potassium Chloride ER [K-Dur 20] 20 meq PO DAILY 10/22/18 10/22/18 History Allergies Allergy/AdvReac Type Severity Reaction Status Date / Time codeine Allergy Itching Verified 10/22/18 14:55 Physical Exam Vitals: Vital Signs Temp Pulse Pulse Resp BP Pulse Ox 10/23/18 16:18 75 10/23/18 16:08 73 10/23/18 14:58 97.5 F L 75 18 148/55 94 L 10/23/18 10:59 74 16 10/23/18 10:50 74 16 10/23/18 07:33 72 10/23/18 07:25 74 10/23/18 07:24 74 10/23/18 07:12 70 96 10/23/18 06:40 97.6 F 73 20 147/70 93 L 10/22/18 21:00 97.7 F 77 20 126/65 94 L 10/22/18 20:52 96 10/22/18 20:41 88 10/22/18 20:40 84 10/22/18 20:33 78 Intake and Output 10/23/18 10/23/18 10/23/18 06:59 14:59 22:59 Intake Total 800 200 Balance 800 200 Intake: Oral 800 200 Other: # Voids 2 3 3 - Constitutional General appearance: disheveled, morbidly obese - EENT Eyes: PERRLA, dentition normal, normal appearance ENT: normal oropharynx Ears: bilateral: normal - Neck Neck: normal ROM Carotids: bilateral: upstroke normal Thyroid: bilateral: normal size - Respiratory Respiratory: bilateral: diminished, wheezing, prolonged expiration, negative: dullness, rales, rhonchi - Cardiovascular Rhythm: regular Heart sounds: normal: S1, S2 - Gastrointestinal General gastrointestinal: decreased bowel sounds, soft - Integumentary Integumentary: normal turgor - Neurologic Neurologic: CNII-XII intact - Musculoskeletal Musculoskeletal: gait normal, generalized weakness, strength equal bilaterally - Psychiatric Psychiatric: A&O x's 3, appropriate affect, intact judgment & insight Results - Laboratory Findings CBC and BMP: 10/23/18 07:52 10/23/18 07:52 PT/INR, D-dimer PT 13.3 sec (9.0-12.0) H 10/22/18 14:55 INR 1.3 (<1.2) H 10/22/18 14:55 Abnormal lab findings: Abnormal Labs 10/22/18 10/22/18 10/22/18 14:55 14:55 14:55 WBC MCHC RDW 17.6 H Neutrophils # Lymphocytes # PT 13.3 H INR 1.3 H APTT 32.3 H BUN 25 H Creatinine 1.20 H Glucose POC Glucose (mg/dL) Urine Protein 10/22/18 10/22/18 10/23/18 20:49 21:30 07:02 WBC MCHC RDW Neutrophils # Lymphocytes # PT INR APTT BUN Creatinine Glucose POC Glucose (mg/dL) 184 H 160 H Urine Protein Trace H 10/23/18 10/23/18 10/23/18 07:52 07:52 12:04 WBC 14.7 H MCHC 30.7 L RDW 17.5 H Neutrophils # 13.8 H Lymphocytes # 0.6 L PT INR APTT BUN 31 H Creatinine 1.38 H Glucose 160 H POC Glucose (mg/dL) 165 H Urine Protein 10/23/18 16:41 WBC MCHC RDW Neutrophils # Lymphocytes # PT INR APTT BUN Creatinine Glucose POC Glucose (mg/dL) 174 H Urine Protein - Diagnostic Findings Chest x-ray: report reviewed, image reviewed (Finding as noted above) Assessment and Plan Assessment: Left lingula lobe pneumonia Acute COPD exacerbation Sepsis Chronic atrial fibrillation status post ablation Hyperglycemia due to steroids on sliding scale insulin Plan: Continue bronchodilator IV steroids and antibiotics, try to obtain a sputum sample will continue current plan of care further recommendations pending plan of care as per clinical response of the patient Time with Patient: Greater than 30
[2018-10-23 20:48] LABS: Glucose,Whole Blood 157 mg/dL (75-99)
[2018-10-23] MEDS: ATORVASTATIN 40 MG TAB PO SCH (21:05)
[2018-10-23] MEDS: ASPIRIN 81 MG PO SCH (21:05)
[2018-10-24] MEDS: PIPERACILLIN-TAZOBACTAM 3.375 GM in SODIUM CHLORIDE 0.9% 100 ML IVPB SCH ×3 (00:15→15:00)
[2018-10-24] MEDS: methylPREDNISolone SOD SUCCI 125 MG/2 ML VIAL IV SCH ×4 (00:15→17:14)
[2018-10-24] MEDS: LEVOTHYROXINE 75 MCG TAB PO SCH (06:11)
[2018-10-24 07:07] LABS: Glucose,Whole Blood 175 mg/dL (75-99)
[2018-10-24] MEDS: FUROSEMIDE 40 MG TAB PO SCH (07:17)
[2018-10-24] MEDS: ALLOPURINOL 100 MG TAB PO SCH (07:17)
[2018-10-24] MEDS: VIT A,C & E-LUTEIN-MINERALS 1 EACH TAB PO SCH ×2 (07:17→21:16)
[2018-10-24] MEDS: AMIODARONE 200 MG TAB PO SCH (07:17)
[2018-10-24] MEDS: CHOLECALCIFEROL 1,000 UNIT TAB PO SCH (07:17)
[2018-10-24] MEDS: PANTOPRAZOLE 40 MG TABLET PO SCH (07:17)
[2018-10-24] MEDS: MAGNESIUM OXIDE 400 MG TAB PO SCH (07:18)
[2018-10-24] MEDS: POLYETHYLENE GLYCOL 3350 17 GM POWD.PACK PO SCH (07:18)
[2018-10-24] MEDS: guaiFENesin 600 MG TABLET.ER PO SCH ×2 (07:18→21:16)
[2018-10-24] MEDS: RIVAROXABAN 20 MG TAB PO SCH (07:18)
[2018-10-24] MEDS: POTASSIUM CHLORIDE ER 20 MEQ TAB.ER PO SCH (07:18)
[2018-10-24] MEDS: INSULIN ASPART (NovoLOG) 100 UNIT/ML VIAL SQ SCH ×4 (07:19→21:17)
[2018-10-24] MEDS: IPRATROPIUM-ALBUTEROL 3 ML NEB INHALATION SCH ×4 (07:24→19:25)
[2018-10-24] MEDS: BUDESONIDE 0.5 MG/2 ML NEBU INHALATION SCH ×2 (07:24→19:25)
[2018-10-24] MEDS: FORMOTEROL FUMARATE 20 MCG/2 ML NEBU INHALATION SCH ×2 (07:24→19:25)
[2018-10-24] MEDS: ACETAMINOPHEN TAB 325 MG TAB PO PRN ×2 (09:36→21:16)
[2018-10-24 09:37] LABS: Calcium 9.3 mg/dL (8.4-10.2); Potassium 4.2 mmol/L (3.5-5.1)
[2018-10-24 09:54] LABS: Anisocytosis Slight; Basophils % (A) 0 %; Eosinophils % (A) 0 %; HCT 36.1 % (34.0-46.0); HGB 10.8 gm/dL (11.4-16.0); Hypochromasia Moderate; Lymphocytes # (A) 0.6 k/uL (1.0-4.8); Lymphocytes % (A) 2 %; MCH 25.8 pg (25.0-35.0); MCHC 29.8 g/dL (31.0-37.0); MCV 86.5 fL (80.0-100.0); Mean Platelet Volume 7.8; Monocytes # (A) 0.6 k/uL (0-1.0); Monocytes % (A) 2 %; Neutrophils # (A) 24.7 k/uL (1.3-7.7); Neutrophils % (A) 95 %; Platelet Count 234 k/uL (150-450); RBC 4.17 m/uL (3.80-5.40); RDW 17.1 % (11.5-15.5); WBC 25.9 k/uL (3.8-10.6)
--- NOTE | 2018-10-24 10:09 | CDI ---
Documentation Clarification Form Date: 10/24/2018 9:39:49 AM From: Martina Pickard RN CCDS Admit Date: 10/22/2018 4:31:00 PM Patient Name: Harmony Arias Visit Number: [id number] Discharge Date: ATTENTION: The Clinical Documentation Specialists (CDI) and [facility] Coding Staff appreciate your assistance in clarifying documentation. Please respond to the clarification below the line at the bottom and electronically sign. The CDI & [facility] Coding staff will review the response and follow-up if needed. Please note: Queries are made part of the Legal Health Record. If you have any questions, please contact the author of this message via ITS. Dr. May Tanner Sepsis has been documented in the [employer] Consult History/Risk Factors: 73 year old female presents to [facility] for a cough, Shortness of breath had out patient treatment with two courses of antibiotics. Medical history Atrial Fib, Asthma, CAD, COPD Clinical Indicators: Vss 10/22/2018 144/65 80 98.3 20 90% ra Vss 10/23/2018 148/55 75 97.5 18 94% ra 10/22/2018 Wbc 7.9, 10/23/2018 Wbc 14.7, Treatment: Levaquin ivpb Zosyn ivpb Definition of Present on Admission (POA): A diagnosis present at the time the order for admission to inpatient status was written. For each diagnosis, documentation must be clear to determine if the condition was present at the time of the patients inpatient admission or developed during the hospital stay. Please clarify if Sepsis * Sepsis Ruled out * Yes Sepsis was presents at time of the order for inpatient admission. * No Sepsis was not present at the time of the order for inpatient admission. (Last Revision: Feb 2018) Yes Sepsis was presents at time of the order for inpatient admission. LAYOD
--- NOTE | 2018-10-24 10:38 | CDI ---
Documentation Clarification Form Date: 10/24/2018 10:21:02 AM From: Martina Pickard RN CCDS Admit Date: 10/22/2018 4:31:00 PM Patient Name: Harmony Arias Visit Number: [id number] Discharge Date: ATTENTION: The Clinical Documentation Specialists (CDI) and [facility] Coding Staff appreciate your assistance in clarifying documentation. Please respond to the clarification below the line at the bottom and electronically sign. The CDI & [facility] Coding staff will review the response and follow-up if needed. Please note: Queries are made part of the Legal Health Record. If you have any questions, please contact the author of this message via ITS. Dr. Arnel Leary Chest x-ray on 10/22/2018 and 13 reviewed there revealed infiltrates in lingular lobe likely left midlung field pneumonia, with finding of congestive heart failure. In your consult 10/23/2018 History/Risk Factors: 73 year old female presents to [facility] for a cough, shortness of breath. Medical history Atrial Fibrillation , Asthma, CAD , COPD Clinical Indicators: VS/Pulse OX: 10/23/2018 148/55 75 97.5 18 94% ra BNP: 1420 Chest X Ray: 10/23/2018 In addition to a lingular pneumonia that appears stable.There is new moderate pulmonary vascular congestion.Consider congestive heart failure or noncardiogenic fluid overload Treatment: Started 10/23/2018 Lasix po 40mg daily In your professional opinion, can you please clarify the acuity and type of CHF if known? * Acute Systolic Heart Failure * Chronic Systolic Heart Failure * Acute on Chronic Heart Failure * Acute Diastolic Heart Failure * Chronic Diastolic Heart Failure * Acute on Chronic Diastolic Heart Failure * Acute Systolic and Diastolic Heart Failure * Chronic Systolic and Diastolic Heart Failure * Acute on Chronic Systolic and Diastolic Heart Failure * Unable to Determine * Other, please specify (Last Revision: June 2017) MTDD
--- NOTE | 2018-10-24 10:53 | CDI ---
Documentation Clarification Form Date: 10/24/2018 10:39:26 AM From: Martina Pickard RN CCDS Admit Date: 10/22/2018 4:31:00 PM Patient Name: Harmony Arias Visit Number: [id number] Discharge Date: ATTENTION: The Clinical Documentation Specialists (CDI) and [facility] Coding Staff appreciate your assistance in clarifying documentation. Please respond to the clarification below the line at the bottom and electronically sign. The CDI & [facility] Coding staff will review the response and follow-up if needed. Please note: Queries are made part of the Legal Health Record. If you have any questions, please contact the author of this message via ITS. Dr. Arnel Leary Asthma is documented in your consult under past medical history History/risk factors: 73 year old female presents to the ED for a cough and shortness of breath. The patient had treatment with two courses of antibiotics & steroids and failed outpt treatment. Clinical Indicators: Radiology: CXR In addition to a lingular pneumonia that appears stable.There is new moderate pulmonary vascular congestion.Consider congestive heart failure or noncardiogenic fluid overload. Vital Signs: 148/55 75 97.5 18 94% ra Other Clinical Indicators: Respiratory evaluation bilateral wheezing, prolonged expiration Medication: Ventolin, Duoneb, Pulmicort, Perforomist, In your professional opinion, can you please further specify the following, if known? Severity * Mild intermittent * Mild persistent * Moderate persistent * Severe persistent * Other, please specify ____ * Unable to determine Form or Type * Cough variant * Childhood * Exercise induced bronchospasm * Extrinsic allergic * Idiosyncratic * Intrinsic nonallergic * Late-onset * Mixed * Other, please specify____ * Unable to determine (Last Revision: June 2017) MTDD
[2018-10-24 11:56] LABS: Glucose,Whole Blood 216 mg/dL (75-99)
[2018-10-24] MEDS: LEVOFLOXACIN 750MG-D5W PMX 750 MG in DEXTROSE/WATER 1 150ML.BAG IVPB SCH (17:14)
[2018-10-24 17:19] LABS: Glucose,Whole Blood 133 mg/dL (75-99)
[2018-10-24 20:34] LABS: Glucose,Whole Blood 177 mg/dL (75-99)
[2018-10-24] MEDS: ASPIRIN 81 MG PO SCH (21:16)
[2018-10-24] MEDS: ALPRAZolam 0.25 MG TAB PO PRN (21:16)
[2018-10-24] MEDS: ATORVASTATIN 40 MG TAB PO SCH (21:16)
[2018-10-25] MEDS: methylPREDNISolone SOD SUCCI 125 MG/2 ML VIAL IV SCH ×5 (00:38→23:31)
[2018-10-25] MEDS: PIPERACILLIN-TAZOBACTAM 3.375 GM in SODIUM CHLORIDE 0.9% 100 ML IVPB SCH ×4 (00:38→23:31)
[2018-10-25] MEDS: LEVOTHYROXINE 75 MCG TAB PO SCH (06:05)
[2018-10-25 07:05] LABS: Glucose,Whole Blood 166 mg/dL (75-99)
[2018-10-25] MEDS: BUDESONIDE 0.5 MG/2 ML NEBU INHALATION SCH ×2 (07:08→19:04)
[2018-10-25] MEDS: FORMOTEROL FUMARATE 20 MCG/2 ML NEBU INHALATION SCH ×2 (07:09→19:17)
[2018-10-25] MEDS: IPRATROPIUM-ALBUTEROL 3 ML NEB INHALATION SCH ×4 (07:09→19:04)
--- NOTE | 2018-10-25 07:35 | P.PN ---
Subjective Progress Note Date: 10/25/18 Principal diagnosis: Left lingula lobe pneumonia Acute COPD exacerbation Acute asthma Sepsis Chronic atrial fibrillation status post ablation Hyperglycemia due to steroids on sliding scale insulin Chronic persistent asthma severe category 10/25/2018, patient seen and evaluated examined during the rounds still have ongoing wheezing cuff congestion slightly better yesterday in the morning but since the afternoon and late last night continued to have congestion labs review ed medications reviewed, unable to obtain the sputum, remains on broad- spectrum antibiotics will get a follow-up chest x-ray, patient has been concerned about swelling in the lower extremity has been on IV fluids as well need to stop the IV fluids and continue Lasix This is a 73-year-old female well-known to me, patient was seen in the office for non-resolving cough with greenish sputum production and shortness of breath of 2 week duration patient has 2 courses of antibiotics with steroids without any significant improvement she was advised to be admitted has failed outpatient therapy, her blood cultures are negative, white cell count is elevated 14,700, chest x-ray on October 22 and reviewed there revealed infiltrates in lingular lobe likely left midlung field pneumonia, with finding of congestive heart failure Objective - Vital Signs Vital signs: Vital Signs Temp 97.5 F L 10/25/18 05:00 Pulse 78 10/25/18 07:09 Resp 18 10/25/18 05:00 BP 127/67 10/25/18 05:00 Pulse Ox 97 10/25/18 05:00 Intake & Output 10/24/18 10/25/18 10/25/18 18:59 06:59 18:59 Intake Total 675 Balance 675 Intake: Intake, IV Titration 175 Amount Levofloxacin 750Mg-D5w 150 Pmx 750 mg In Dextrose/ Water 1 150ml.bag @ 100 mls/hr IVPB Q48H MILAN Rx#: [id number] Piperacillin-Tazobactam 3 25 .375 gm In Sodium Chloride 0.9% 100 ml @ 25 mls/hr IVPB Q8HR MILAN Rx# :[id number] Oral 500 Other: # Voids 3 2 - Exam - Constitutional General appearance: disheveled, morbidly obese - EENT Eyes: PERRLA, dentition normal, normal appearance ENT: normal oropharynx Ears: bilateral: normal - Neck Neck: normal ROM Carotids: bilateral: upstroke normal Thyroid: bilateral: normal size - Respiratory Respiratory: bilateral: diminished, wheezing, prolonged expiration, negative: dullness, rales, rhonchi - Cardiovascular Rhythm: regular Heart sounds: normal: S1, S2, +3 ankle edema - Gastrointestinal General gastrointestinal: decreased bowel sounds, soft - Integumentary Integumentary: normal turgor - Neurologic Neurologic: CNII-XII intact - Musculoskeletal Musculoskeletal: gait normal, generalized weakness, strength equal bilaterally - Psychiatric Psychiatric: A&O x's 3, appropriate affect, intact judgment & insight - Labs CBC & Chem 7: 10/24/18 08:42 10/24/18 08:42 Labs: Abnormal Lab Results - Last 24 Hours (Table) 10/24/18 10/24/18 10/24/18 Range/Units 08:42 08:42 11:54 WBC 25.9 H (3.8-10.6) k/uL Hgb 10.8 L (11.4-16.0) gm/dL MCHC 29.8 L (31.0-37.0) g/dL RDW 17.1 H (11.5-15.5) % Neutrophils # 24.7 H (1.3-7.7) k/uL Lymphocytes # 0.6 L (1.0-4.8) k/uL Sodium 136 L (137-145) mmol/L Carbon Dioxide 18 L (22-30) mmol/L BUN 40 H (7-17) mg/dL Creatinine 1.45 H (0.52-1.04) mg/dL Glucose 236 H (74-99) mg/dL POC Glucose (mg/dL) 216 H (75-99) mg/dL 10/24/18 10/24/18 10/25/18 Range/Units 17:15 20:16 07:03 WBC (3.8-10.6) k/uL Hgb (11.4-16.0) gm/dL MCHC (31.0-37.0) g/dL RDW (11.5-15.5) % Neutrophils # (1.3-7.7) k/uL Lymphocytes # (1.0-4.8) k/uL Sodium (137-145) mmol/L Carbon Dioxide (22-30) mmol/L BUN (7-17) mg/dL Creatinine (0.52-1.04) mg/dL Glucose (74-99) mg/dL POC Glucose (mg/dL) 133 H 177 H 166 H (75-99) mg/dL Microbiology - Last 24 Hours (Table) 10/22/18 20:01 Blood Culture - Preliminary Blood No Growth after 48 hours 10/22/18 14:55 Blood Culture - Preliminary Blood No Growth after 48 hours Assessment and Plan Assessment: Left lingula lobe pneumonia Acute COPD exacerbation Sepsis Chronic atrial fibrillation status post ablation Acute exacerbation of CHF due to chronic diastolic heart failure and intubation from COPD exacerbation Acute asthma exacerbation with baseline chronic persistent moderate asthma Hyperglycemia due to steroids on sliding scale insulin Plan: Continue bronchodilator IV steroids and antibiotics, try to obtain a sputum sample will continue current plan of care further recommendations pending plan of care as per clinical response of the patient, continue furosemide, IV to Hep- Lock Time with Patient: Greater than 30
[2018-10-25] MEDS: POLYETHYLENE GLYCOL 3350 17 GM POWD.PACK PO SCH (07:59)
[2018-10-25] MEDS: MAGNESIUM OXIDE 400 MG TAB PO SCH (07:59)
[2018-10-25] MEDS: VIT A,C & E-LUTEIN-MINERALS 1 EACH TAB PO SCH ×2 (07:59→21:09)
[2018-10-25] MEDS: INSULIN ASPART (NovoLOG) 100 UNIT/ML VIAL SQ SCH ×4 (08:00→21:05)
[2018-10-25] MEDS: POTASSIUM CHLORIDE ER 20 MEQ TAB.ER PO SCH (08:00)
[2018-10-25] MEDS: RIVAROXABAN 20 MG TAB PO SCH (08:00)
[2018-10-25] MEDS: CHOLECALCIFEROL 1,000 UNIT TAB PO SCH (08:00)
[2018-10-25] MEDS: AMIODARONE 200 MG TAB PO SCH (08:00)
[2018-10-25] MEDS: guaiFENesin 600 MG TABLET.ER PO SCH ×2 (08:01→21:05)
[2018-10-25] MEDS: ALLOPURINOL 100 MG TAB PO SCH (08:01)
[2018-10-25] MEDS: FUROSEMIDE 40 MG TAB PO SCH (08:01)
[2018-10-25] MEDS: PANTOPRAZOLE 40 MG TABLET PO SCH (08:01)
[2018-10-25 09:51] LABS: Anisocytosis Slight; Basophils % (A) 0 %; Eosinophils % (A) 0 %; HCT 35.9 % (34.0-46.0); Hypochromasia Marked; Lymphocytes # (A) 0.4 k/uL (1.0-4.8); Lymphocytes % (A) 2 %; MCH 26.4 pg (25.0-35.0); MCHC 30.7 g/dL (31.0-37.0); MCV 86.2 fL (80.0-100.0); Mean Platelet Volume 7.8; Monocytes # (A) 0.5 k/uL (0-1.0); Monocytes % (A) 3 %; Neutrophils # (A) 19.1 k/uL (1.3-7.7); Neutrophils % (A) 95 %; Platelet Count 258 k/uL (150-450); RBC 4.16 m/uL (3.80-5.40); RDW 17.5 % (11.5-15.5); WBC 20.2 k/uL (3.8-10.6)
[2018-10-25 10:03] LABS: Calcium 9.4 mg/dL (8.4-10.2); Potassium 4.4 mmol/L (3.5-5.1)
[2018-10-25] MEDS ORDERED: FUROSEMIDE 10 MG/ML 4 ML VIAL IV STA (11:26)
[2018-10-25] MEDS ORDERED: BISACODYL 10 MG SUPP RECTAL PRN (11:27)
[2018-10-25 11:41] LABS: Glucose,Whole Blood 141 mg/dL (75-99)
[2018-10-25] MEDS: BISACODYL 5 MG TABLET.DR PO PRN (12:13)
[2018-10-25 16:59] LABS: Glucose,Whole Blood 147 mg/dL (75-99)
[2018-10-25 20:36] LABS: Glucose,Whole Blood 164 mg/dL (75-99)
[2018-10-25] MEDS: ASPIRIN 81 MG PO SCH (21:05)
[2018-10-25] MEDS: ATORVASTATIN 40 MG TAB PO SCH (21:05)
--- NOTE | 2018-10-25 23:05 | P.PN ---
Subjective Progress Note Date: 10/25/18 Principal diagnosis: This is a 73 year old female that was admitted for bilateral pneumonia with COPD exacerbation and is being followed closely. Patient today is still quite short of breath and winded when talking and ambulating to the bathroom. Patient is also having a significant amount of swelling of the bilateral lower extremities. Patient is currently on oral lasix BID and is requesting IV lasix as she states that in previous admissions she was able to diurese well and get rid of the swelling. Patient denies any chest pain or palpitations at this time. Patient stated that she has been unable to have a bowel movement. Patient denies any nausea or vomiting at this time. Patient is afebrile. Patient is tolerating diet. Patient is urinating. Guarded prognosis. Objective - Vital Signs Vital signs: Vital Signs Temp 97.8 F 10/25/18 21:04 Pulse 77 10/25/18 21:04 Resp 20 10/25/18 21:04 BP 152/73 10/25/18 21:04 Pulse Ox 96 10/25/18 21:04 Intake & Output 10/25/18 10/25/18 10/26/18 06:59 18:59 06:59 Intake Total 675 Balance 675 Intake: Intake, IV Titration 175 Amount Levofloxacin 750Mg-D5w 150 Pmx 750 mg In Dextrose/ Water 1 150ml.bag @ 100 mls/hr IVPB Q48H [facility] Rx#: [id number] Piperacillin-Tazobactam 3 25 .375 gm In Sodium Chloride 0.9% 100 ml @ 25 mls/hr IVPB Q8HR MILAN Rx# :[id number] Oral 500 Other: Voiding Method Toilet # Voids 2 5 # Bowel Movements 1 - Exam On exam, the patient is alert and oriented and appears in no acute distress. Vital signs are stable. Heent: conjunctivae normal, EOMs intact Neck: supple, no lymph nodes noted, no JVD noted Cardiovascular: S1, S2 heard, RRR Respiratory: breath sounds diminished at the bases with some scattered rhonci and mild expiratory wheezing noted Abdomen: soft, non-tender, obese, no masses noted Legs: Bilateral lower extremity swelling noted, 2+ pitting edema of the feet Nervous system: no new focal deficits, gait is steady Skin: dry, no rashes or lesions noted. - Labs CBC & Chem 7: 10/25/18 09:00 10/25/18 09:00 Labs: Abnormal Lab Results - Last 24 Hours (Table) 10/25/18 10/25/18 10/25/18 Range/Units 07:03 09:00 09:00 WBC 20.2 H (3.8-10.6) k/uL Hgb 11.0 L (11.4-16.0) gm/dL MCHC 30.7 L (31.0-37.0) g/dL RDW 17.5 H (11.5-15.5) % Neutrophils # 19.1 H (1.3-7.7) k/uL Lymphocytes # 0.4 L (1.0-4.8) k/uL Carbon Dioxide 19 L (22-30) mmol/L BUN 41 H (7-17) mg/dL Creatinine 1.39 H (0.52-1.04) mg/dL Glucose 166 H (74-99) mg/dL POC Glucose (mg/dL) 166 H (75-99) mg/dL 10/25/18 10/25/18 10/25/18 Range/Units 11:29 16:57 20:11 WBC (3.8-10.6) k/uL Hgb (11.4-16.0) gm/dL MCHC (31.0-37.0) g/dL RDW (11.5-15.5) % Neutrophils # (1.3-7.7) k/uL Lymphocytes # (1.0-4.8) k/uL Carbon Dioxide (22-30) mmol/L BUN (7-17) mg/dL Creatinine (0.52-1.04) mg/dL Glucose (74-99) mg/dL POC Glucose (mg/dL) 141 H 147 H 164 H (75-99) mg/dL Microbiology - Last 24 Hours (Table) 10/22/18 14:55 Blood Culture - Preliminary Blood No Growth after 72 hours 10/22/18 20:01 Blood Culture - Preliminary Blood No Growth after 48 hours Assessment and Plan Assessment: chronic obstructive pulmonary disease with acute exacerbation with failure of outpatient treatment Possible bibasilar bilateral pneumonia possibly gram negative with failure of outpatient treatment with oral antibiotics on 2 different occasions Increased creatinine with mild acute renal failure, possible secondary to acute tubular necrosis A-fib, chronic and persistent. Underwent an ablation in 2018 History of asthma History of coronary artery disease/stent History of mvocardial infarction history of DJD History of pneumonia History of macular degeneration History of cholecystectomy History of cardioversion Remote history of nicotine dependence. Atrial fibrillation, paroxysmal Recommendations and discussion: Recommend to continue current medications, medical management, as well as symptomatic treatment. Patient will be followed closely. Patient is currently on IV antibiotics as well as IV steroid, and lasix. Will check morning labs to follow closely. Guarded prognosis. Further recommendations to follow. Possible discharge 24 hours.
[2018-10-25] MEDS: ALPRAZolam 0.25 MG TAB PO PRN (23:40)
[2018-10-26] MEDS: methylPREDNISolone SOD SUCCI 125 MG/2 ML VIAL IV SCH (05:06)
[2018-10-26] MEDS: LEVOTHYROXINE 75 MCG TAB PO SCH (05:06)
[2018-10-26] MEDS: IPRATROPIUM-ALBUTEROL 3 ML NEB INHALATION SCH ×4 (07:10→20:09)
[2018-10-26] MEDS: FORMOTEROL FUMARATE 20 MCG/2 ML NEBU INHALATION SCH ×2 (07:10→20:09)
[2018-10-26] MEDS: BUDESONIDE 0.5 MG/2 ML NEBU INHALATION SCH ×2 (07:10→20:09)
[2018-10-26 07:20] LABS: Glucose,Whole Blood 147 mg/dL (75-99)
[2018-10-26] MEDS: MAGNESIUM OXIDE 400 MG TAB PO SCH (08:08)
[2018-10-26] MEDS: FUROSEMIDE 40 MG TAB PO SCH (08:08)
[2018-10-26] MEDS: BISACODYL 5 MG TABLET.DR PO PRN (08:08)
[2018-10-26] MEDS: guaiFENesin 600 MG TABLET.ER PO SCH ×2 (08:09→21:58)
[2018-10-26] MEDS: CHOLECALCIFEROL 1,000 UNIT TAB PO SCH (08:09)
[2018-10-26] MEDS: PIPERACILLIN-TAZOBACTAM 3.375 GM in SODIUM CHLORIDE 0.9% 100 ML IVPB SCH ×3 (08:09→23:41)
[2018-10-26] MEDS: AMIODARONE 200 MG TAB PO SCH (08:09)
[2018-10-26] MEDS: POTASSIUM CHLORIDE ER 20 MEQ TAB.ER PO SCH (08:09)
[2018-10-26] MEDS: RIVAROXABAN 15 MG TAB PO SCH (08:09)
[2018-10-26] MEDS: ALLOPURINOL 100 MG TAB PO SCH (08:09)
[2018-10-26] MEDS: PANTOPRAZOLE 40 MG TABLET PO SCH (08:09)
[2018-10-26] MEDS: INSULIN ASPART (NovoLOG) 100 UNIT/ML VIAL SQ SCH ×4 (08:09→21:58)
[2018-10-26] MEDS: VIT A,C & E-LUTEIN-MINERALS 1 EACH TAB PO SCH ×2 (08:10→21:58)
[2018-10-26] MEDS: POLYETHYLENE GLYCOL 3350 17 GM POWD.PACK PO SCH (08:10)
--- NOTE | 2018-10-26 09:27 | P.PN ---
Subjective Progress Note Date: 10/26/18 Principal diagnosis: Left lingula lobe pneumonia Acute COPD exacerbation Acute asthma Sepsis Chronic atrial fibrillation status post ablation Hyperglycemia due to steroids on sliding scale insulin Chronic persistent asthma severe category 10/26/2018, patient seen eval examined during the rounds he denies any chest pain or shortness of breath breathing has improved somewhat wheezing is less concerned about swelling she sitting upright on the chair with legs up swelling slightly improved from yesterday patient IV fluid has been discontinued she is still on broad-spectrum antibiotics for pneumonia which however can be changed to oral in next 24 hours, so as the IV steroids to 10/25/2018, patient seen and evaluated examined during the rounds still have ongoing wheezing cuff congestion slightly better yesterday in the morning but since the afternoon and late last night continued to have congestion labs reviewed medications reviewed, unable to obtain the sputum, remains on broad-spectrum antibiotics will get a follow-up chest x-ray, patient has been concerned about swelling in the lower extremity has been on IV fluids as well need to stop the IV fluids and continue Lasix This is a 73-year-old female well-known to me, patient was seen in the office for non-resolving cough with greenish sputum production and shortness of breath of 2 week duration patient has 2 courses of antibiotics with steroids without any significant improvement she was advised to be admitted has failed outpatient therapy, her blood cultures are negative, white cell count is elevated 14,700, chest x-ray on October 22 and reviewed there revealed infiltrates in lingular lobe likely left midlung field pneumonia, with finding of congestive heart failure Objective - Vital Signs Vital signs: Vital Signs Temp 97.8 F 10/26/18 05:00 Pulse 78 10/26/18 07:35 Resp 20 10/26/18 05:00 BP 125/73 10/26/18 05:00 Pulse Ox 97 10/26/18 07:14 Intake & Output 10/25/18 10/26/18 10/26/18 18:59 06:59 18:59 Intake Total 500 200 Balance 500 200 Weight 92.533 kg Intake: Oral 500 200 Other: Voiding Method Toilet Toilet # Voids 5 3 # Bowel Movements 1 - Exam - Constitutional General appearance: disheveled, morbidly obese - EENT Eyes: PERRLA, dentition normal, normal appearance ENT: normal oropharynx Ears: bilateral: normal - Neck Neck: normal ROM Carotids: bilateral: upstroke normal Thyroid: bilateral: normal size - Respiratory Respiratory: bilateral: diminished, wheezing, prolonged expiration, negative: dullness, rales, rhonchi, improved compared to yesterday exam - Cardiovascular Rhythm: regular Heart sounds: normal: S1, S2, +1 ankle edema - Gastrointestinal General gastrointestinal: decreased bowel sounds, soft - Integumentary Integumentary: normal turgor - Neurologic Neurologic: CNII-XII intact - Musculoskeletal Musculoskeletal: gait normal, generalized weakness, strength equal bilaterally - Psychiatric Psychiatric: A&O x's 3, appropriate affect, intact judgment & insight - Labs CBC & Chem 7: 10/25/18 09:00 10/25/18 09:00 Labs: Abnormal Lab Results - Last 24 Hours (Table) 10/25/18 10/25/18 10/25/18 Range/Units 09:00 09:00 11:29 WBC 20.2 H (3.8-10.6) k/uL Hgb 11.0 L (11.4-16.0) gm/dL MCHC 30.7 L (31.0-37.0) g/dL RDW 17.5 H (11.5-15.5) % Neutrophils # 19.1 H (1.3-7.7) k/uL Lymphocytes # 0.4 L (1.0-4.8) k/uL Carbon Dioxide 19 L (22-30) mmol/L BUN 41 H (7-17) mg/dL Creatinine 1.39 H (0.52-1.04) mg/dL Glucose 166 H (74-99) mg/dL POC Glucose (mg/dL) 141 H (75-99) mg/dL 10/25/18 10/25/18 10/26/18 Range/Units 16:57 20:11 07:09 WBC (3.8-10.6) k/uL Hgb (11.4-16.0) gm/dL MCHC (31.0-37.0) g/dL RDW (11.5-15.5) % Neutrophils # (1.3-7.7) k/uL Lymphocytes # (1.0-4.8) k/uL Carbon Dioxide (22-30) mmol/L BUN (7-17) mg/dL Creatinine (0.52-1.04) mg/dL Glucose (74-99) mg/dL POC Glucose (mg/dL) 147 H 164 H 147 H (75-99) mg/dL Microbiology - Last 24 Hours (Table) 10/22/18 20:01 Blood Culture - Preliminary Blood No Growth after 72 hours 10/22/18 14:55 Blood Culture - Preliminary Blood No Growth after 72 hours Assessment and Plan Assessment: Left lingula lobe pneumonia Acute COPD exacerbation Sepsis Chronic atrial fibrillation status post ablation Acute exacerbation of CHF due to chronic diastolic heart failure and intubation from COPD exacerbation Acute asthma exacerbation with baseline chronic persistent moderate asthma Hyperglycemia due to steroids on sliding scale insulin Plan: Continue bronchodilator IV steroids and antibiotics, try to obtain a sputum sample will continue current plan of care further recommendations pending plan of care as per clinical response of the patient, continue furosemide, IV to Hep- Lock, in next 24 hours recommend to change antibiotics and steroids to oral Time with Patient: Greater than 30
[2018-10-26 09:58] LABS: Anisocytosis Slight; HCT 34.2 % (34.0-46.0); HGB 10.6 gm/dL (11.4-16.0); Hypochromasia Moderate; MCH 26.4 pg (25.0-35.0); MCV 85.2 fL (80.0-100.0); Platelet Count 240 k/uL (150-450); RBC 4.02 m/uL (3.80-5.40); RDW 17.1 % (11.5-15.5); WBC 14.3 k/uL (3.8-10.6)
[2018-10-26 10:07] LABS: Potassium 3.9 mmol/L (3.5-5.1)
[2018-10-26] MEDS ORDERED: FUROSEMIDE 10 MG/ML 4 ML VIAL IV STA (10:25)
[2018-10-26 12:12] LABS: Glucose,Whole Blood 153 mg/dL (75-99)
[2018-10-26] MEDS: ACETAMINOPHEN TAB 325 MG TAB PO PRN (12:53)
[2018-10-26 15:00] VITALS: RESP 16
[2018-10-26] MEDS: LEVOFLOXACIN 750MG-D5W PMX 750 MG in DEXTROSE/WATER 1 150ML.BAG IVPB SCH (16:20)
--- NOTE | 2018-10-26 16:47 | P.PN ---
Subjective Progress Note Date: 10/26/18 Principal diagnosis: This is a 73 year old female that was admitted for bilateral pneumonia with COPD exacerbation and is being followed closely. Patient today is still quite short of breath and winded when talking and ambulating to the bathroom. Patient is also having a significant amount of swelling of the bilateral lower extremities. Patient is currently on oral lasix BID and is requesting IV lasix as she states that in previous admissions she was able to diurese well and get rid of the swelling. Patient denies any chest pain or palpitations at this time. Patient stated that she has been unable to have a bowel movement. Patient denies any nausea or vomiting at this time. Patient is afebrile. Patient is tolerating diet. Patient is urinating. Guarded prognosis. 10/26/2018 This is a pleasant woman sitting up at the site of the bed with her feet elevated due to bilateral pedal edema which is slightly improving. Compression hose were ordered. Patient has been ambulating the halls in no acute distress. Patient is currently still on IV antibiotics and was switched to oral steroids today. Patient was given a one-time dose of IV Lasix as she states that she still having some swelling of the feet as well as shortness of breath at times. Patient does use home oxygen on an as-needed basis and at night while resting. Discussed with the patient that we will likely be discharging in the morning. Patient agrees with the plan. Patient denies any chest pain or palpitations at this time. Patient denies any nausea or vomiting and is been tolerating diet. Patient is afebrile. Guarded prognosis Objective - Vital Signs Vital signs: Vital Signs Temp 98.4 F 10/26/18 15:00 Pulse 80 10/26/18 16:24 Resp 16 10/26/18 15:00 BP 133/69 10/26/18 15:00 Pulse Ox 97 10/26/18 15:00 Intake & Output 10/25/18 10/26/18 10/26/18 18:59 06:59 18:59 Intake Total 500 520 Balance 500 520 Weight 92.533 kg Intake: Oral 500 520 Other: Voiding Method Toilet Toilet Toilet # Voids 5 3 3 # Bowel Movements 1 - Exam On exam, the patient is alert and oriented and appears in no acute distress. Vital signs are stable. Heent: conjunctivae normal, EOMs intact Neck: supple, no lymph nodes noted, no JVD noted Cardiovascular: S1, S2 heard, RRR Respiratory: breath sounds diminished at the bases with some scattered rhonci and mild expiratory wheezing noted. Greater airflow entry with minimal expiratory wheezing noted on exam. Abdomen: soft, non-tender, obese, no masses noted Legs: Bilateral lower extremity swelling noted, 1+ pitting edema of the feet, improved from yesterday Nervous system: no new focal deficits, gait is steady Skin: dry, no rashes or lesions noted. - Labs CBC & Chem 7: 10/26/18 09:11 10/26/18 09:11 Labs: Abnormal Lab Results - Last 24 Hours (Table) 10/25/18 10/25/18 10/26/18 Range/Units 16:57 20:11 07:09 WBC (3.8-10.6) k/uL Hgb (11.4-16.0) gm/dL RDW (11.5-15.5) % BUN (7-17) mg/dL Creatinine (0.52-1.04) mg/dL Glucose (74-99) mg/dL POC Glucose (mg/dL) 147 H 164 H 147 H (75-99) mg/dL 10/26/18 10/26/18 10/26/18 Range/Units 09:11 09:11 11:52 WBC 14.3 H (3.8-10.6) k/uL Hgb 10.6 L (11.4-16.0) gm/dL RDW 17.1 H (11.5-15.5) % BUN 44 H (7-17) mg/dL Creatinine 1.42 H (0.52-1.04) mg/dL Glucose 217 H (74-99) mg/dL POC Glucose (mg/dL) 153 H (75-99) mg/dL Microbiology - Last 24 Hours (Table) 10/22/18 20:01 Blood Culture - Preliminary Blood No Growth after 72 hours 10/22/18 14:55 Blood Culture - Preliminary Blood No Growth after 72 hours Assessment and Plan Assessment: chronic obstructive pulmonary disease with acute exacerbation with failure of outpatient treatment Possible bibasilar bilateral pneumonia possibly gram negative with failure of outpatient treatment with oral antibiotics on 2 different occasions Increased creatinine with mild acute renal failure, possible secondary to acute tubular necrosis. Current creatinine is 1.42. We'll monitor closely. A-fib, chronic and persistent. Underwent an ablation in 2018 History of asthma History of coronary artery disease/stent History of mvocardial infarction history of DJD History of pneumonia History of macular degeneration History of cholecystectomy History of cardioversion Remote history of nicotine dependence. Atrial fibrillation, paroxysmal Recommendations and discussion: Recommend to continue current medications, medical management, as well as symptomatic treatment. Patient will be followed closely. Patient is currently on IV antibiotics and has transitioned to oral prednisone. Will check morning labs to follow closely. Guarded prognosis. Further recommendations to follow. Probable discharge in the a.m.
[2018-10-26 17:08] LABS: Glucose,Whole Blood 148 mg/dL (75-99)
[2018-10-26 21:22] LABS: Glucose,Whole Blood 105 mg/dL (75-99)
[2018-10-26] MEDS: ASPIRIN 81 MG PO SCH (21:58)
[2018-10-26] MEDS: ATORVASTATIN 40 MG TAB PO SCH (21:58)
[2018-10-26] MEDS: ALPRAZolam 0.25 MG TAB PO PRN (23:55)
[2018-10-27] MEDS: LEVOTHYROXINE 75 MCG TAB PO SCH (05:53)
[2018-10-27 06:11] VITALS: BP 137/70; TEMP 98.1
[2018-10-27 07:17] LABS: Glucose,Whole Blood 100 mg/dL (75-99)
[2018-10-27] MEDS: INSULIN ASPART (NovoLOG) 100 UNIT/ML VIAL SQ SCH ×2 (07:23→12:30)
[2018-10-27] MEDS: PANTOPRAZOLE 40 MG TABLET PO SCH (07:24)
[2018-10-27] MEDS: ALLOPURINOL 100 MG TAB PO SCH (07:25)
[2018-10-27] MEDS: AMIODARONE 200 MG TAB PO SCH (07:25)
[2018-10-27] MEDS: PIPERACILLIN-TAZOBACTAM 3.375 GM in SODIUM CHLORIDE 0.9% 100 ML IVPB SCH (07:25)
[2018-10-27] MEDS: CHOLECALCIFEROL 1,000 UNIT TAB PO SCH (07:25)
[2018-10-27] MEDS: RIVAROXABAN 15 MG TAB PO SCH (07:25)
[2018-10-27] MEDS: VIT A,C & E-LUTEIN-MINERALS 1 EACH TAB PO SCH (07:25)
[2018-10-27] MEDS: FUROSEMIDE 40 MG TAB PO SCH (07:25)
[2018-10-27] MEDS: POTASSIUM CHLORIDE ER 20 MEQ TAB.ER PO SCH (07:25)
[2018-10-27] MEDS: MAGNESIUM OXIDE 400 MG TAB PO SCH (07:25)
[2018-10-27] MEDS: guaiFENesin 600 MG TABLET.ER PO SCH (07:25)
[2018-10-27] MEDS: POLYETHYLENE GLYCOL 3350 17 GM POWD.PACK PO SCH (07:26)
[2018-10-27] MEDS: BUDESONIDE 0.5 MG/2 ML NEBU INHALATION SCH (07:30)
[2018-10-27] MEDS: IPRATROPIUM-ALBUTEROL 3 ML NEB INHALATION SCH ×2 (07:30→11:15)
[2018-10-27] MEDS: FORMOTEROL FUMARATE 20 MCG/2 ML NEBU INHALATION SCH (07:30)
[2018-10-27 08:26] LABS: Potassium 3.4 mmol/L (3.5-5.1)
[2018-10-27] MEDS: ACETAMINOPHEN TAB 325 MG TAB PO PRN (10:45)
--- NOTE | 2018-10-27 11:07 | P.PN ---
Subjective Progress Note Date: 10/27/18 Principal diagnosis: Left lingula lobe pneumonia Acute COPD exacerbation Acute asthma Sepsis Chronic atrial fibrillation status post ablation Hyperglycemia due to steroids on sliding scale insulin Chronic persistent asthma severe category 10/27/2018, still have ongoing shortness of breath and winded wheezing overall much improved though able to ambulate patient has swelling in the lower extremity which is improving 10/26/2018, patient seen eval examined during the rounds he denies any chest pain or shortness of breath breathing has improved somewhat wheezing is less concerned about swelling she sitting upright on the chair with legs up swelling slightly improved from yesterday patient IV fluid has been discontinued she is still on broad-spectrum antibiotics for pneumonia which however can be changed to oral in next 24 hours, so as the IV steroids to 10/25/2018, patient seen and evaluated examined during the rounds still have ongoing wheezing cuff congestion slightly better yesterday in the morning but since the afternoon and late last night continued to have congestion labs reviewed medications reviewed, unable to obtain the sputum, remains on broad-spectrum antibiotics will get a follow-up chest x-ray, patient has been concerned about swelling in the lower extremity has been on IV fluids as well need to stop the IV fluids and continue Lasix This is a 73-year-old female well-known to me, patient was seen in the office for non-resolving cough with greenish sputum production and shortness of breath of 2 week duration patient has 2 courses of antibiotics with steroids without any significant improvement she was advised to be admitted has failed outpatient therapy, her blood cultures are negative, white cell count is elevated 14,700, chest x-ray on October 22 and reviewed there revealed infiltrates in lingular lobe likely left midlung field pneumonia, with finding of congestive heart failure Objective - Vital Signs Vital signs: Vital Signs Temp 98.1 F 10/27/18 04:45 Pulse 84 10/27/18 08:02 Resp 16 10/27/18 04:45 BP 137/70 10/27/18 04:45 Pulse Ox 94 L 10/27/18 04:45 Intake & Output 10/26/18 10/27/18 10/27/18 18:59 06:59 18:59 Intake Total 520 25 Balance 520 25 Weight 95.1 kg Intake: Intake, IV Titration 25 Amount Piperacillin-Tazobactam 3 25 .375 gm In Sodium Chloride 0.9% 100 ml @ 25 mls/hr IVPB Q8HR [facility] Rx# :[id number] Oral 520 Other: Voiding Method Toilet Toilet # Voids 3 2 - Exam - Constitutional General appearance: disheveled, morbidly obese - EENT Eyes: PERRLA, dentition normal, normal appearance ENT: normal oropharynx Ears: bilateral: normal - Neck Neck: normal ROM Carotids: bilateral: upstroke normal Thyroid: bilateral: normal size - Respiratory Respiratory: bilateral: diminished, wheezing, prolonged expiration, negative: dullness, rales, rhonchi, improved compared to yesterday exam - Cardiovascular Rhythm: regular Heart sounds: normal: S1, S2, +1 ankle edema - Gastrointestinal General gastrointestinal: decreased bowel sounds, soft - Integumentary Integumentary: normal turgor - Neurologic Neurologic: CNII-XII intact - Musculoskeletal Musculoskeletal: gait normal, generalized weakness, strength equal bilaterally - Psychiatric Psychiatric: A&O x's 3, appropriate affect, intact judgment & insight - Labs CBC & Chem 7: 10/26/18 09:11 10/27/18 07:38 Labs: Abnormal Lab Results - Last 24 Hours (Table) 10/26/18 10/26/18 10/26/18 Range/Units 11:52 17:05 21:21 Potassium (3.5-5.1) mmol/L BUN (7-17) mg/dL Creatinine (0.52-1.04) mg/dL Glucose (74-99) mg/dL POC Glucose (mg/dL) 153 H 148 H 105 H (75-99) mg/dL 10/27/18 10/27/18 Range/Units 07:13 07:38 Potassium 3.4 L (3.5-5.1) mmol/L BUN 50 H (7-17) mg/dL Creatinine 1.61 H (0.52-1.04) mg/dL Glucose 104 H (74-99) mg/dL POC Glucose (mg/dL) 100 H (75-99) mg/dL Microbiology - Last 24 Hours (Table) 10/27/18 01:49 Sputum Culture - Preliminary Sputum 10/22/18 20:01 Blood Culture - Preliminary Blood No Growth after 96 hours 10/22/18 14:55 Blood Culture - Preliminary Blood No Growth after 96 hours Assessment and Plan Assessment: Left lingula lobe pneumonia Acute COPD exacerbation Sepsis Chronic atrial fibrillation status post ablation Acute exacerbation of CHF due to chronic diastolic heart failure and intubation from COPD exacerbation Acute asthma exacerbation with baseline chronic persistent moderate asthma Hyperglycemia due to steroids on sliding scale insulin Plan: Continue bronchodilator IV steroids and antibiotics, try to obtain a sputum sample will continue current plan of care further recommendations pending plan of care as per clinical response of the patient, continue furosemide, IV to Hep- Lock, at the time of discharge recommend to change antibiotics and steroids to oral Time with Patient: Greater than 30
[2018-10-27 11:41] LABS: Glucose,Whole Blood 117 mg/dL (75-99)
[2018-10-27 11:49] VITALS: PULSE 70
--- NOTE | 2018-10-27 14:09 | P.DS ---
Providers Date of admission: 10/22/18 16:31 Attending physician: Presley Levy MD Consults: 10/22/18 16:28 Consult Physician Routine Consulting Provider: Arnel Leary Consult Reason/Comments: Pneumonia, COPD Do you want consulting provider notified?: Yes Primary care physician: Nirali Elizabeth [facility] Course: 73 year old female that was admitted for bilateral pneumonia with COPD exacerbation and is being followed closely. Patient today is still quite short of breath and winded when talking and ambulating to the bathroom. Patient is also having a significant amount of swelling of the bilateral lower extremities. Patient is currently on oral lasix BID and is requesting IV lasix as she states that in previous admissions she was able to diurese well and get rid of the swelling. Patient denies any chest pain or palpitations at this time. Patient stated that she has been unable to have a bowel movement. Patient denies any nausea or vomiting at this time. Patient is afebrile. Patient is tolerating di et. Patient is urinating. Guarded prognosis. 10/26/2018 This is a pleasant woman sitting up at the site of the bed with her feet elevated due to bilateral pedal edema which is slightly improving. Compression hose were ordered. Patient has been ambulating the halls in no acute distress. Patient is currently still on IV antibiotics and was switched to oral steroids today. Patient was given a one-time dose of IV Lasix as she states that she still having some swelling of the feet as well as shortness of breath at times. Patient does use home oxygen on an as-needed basis and at night while resting. Discussed with the patient that we will likely be discharging in the morning. Patient agrees with the plan. Patient denies any chest pain or palpitations at this time. Patient denies any nausea or vomiting and is been tolerating diet. Patient is afebrile. Guarded prognosis 10/27/2018 Patient is doing much better today. Patient will be discharged on oral Augmentin for 3 more days and prednisone taper PHYSICAL EXAMINATION: GENERAL: The patient is alert and oriented x3, not in any acute distress. Well developed, well nourished. HEENT: Pupils are round and equally reacting to light. EOMI. No scleral icterus. No conjunctival pallor. Normocephalic, atraumatic. No pharyngeal erythema. No thyromegaly. CARDIOVASCULAR: S1 and S2 present. No murmurs, rubs, or gallops. PULMONARY: Decreased air entry but no wheezing or crackles were appreciated ABDOMEN: Soft, nontender, nondistended, normoactive bowel sounds. No palpable organomegaly. MUSCULOSKELETAL: No joint swelling or deformity. EXTREMITIES: No cyanosis, clubbing, or pedal edema. NEUROLOGICAL: Gross neurological examination did not reveal any focal deficits. SKIN: No rashes. Please refer to dictation a progress note from my nurse practitioner from yesterday for further details of hospital admission course Plan - Discharge Summary Discharge Rx Participant: No New Discharge Prescriptions: New predniSONE 10 mg PO DAILY #30 tab Continue Albuterol Sulfate [Ventolin HFA] 2 puff INHALATION RT-Q6H PRN PRN Reason: Shortness Of Breath Vit C/E/Zn/Coppr/Lutein/Zeaxan [Preservision Areds 2 Softgel] 1 cap PO BID Atorvastatin [Lipitor] 40 mg PO HS #30 tab Magnesium Oxide [Mag-Ox] 250 mg PO DAILY Cholecalciferol [Vitamin D3 (25 Mcg = 1000 Iu)] 1,000 unit PO DAILY Budesonide [Pulmicort] 0.5 mg INHALATION RT-BID guaiFENesin [Mucinex] 600 mg PO BID Ipratropium Nebulized [Atrovent Nebulized 0.2 MG/ML] 0.5 mg INHALATION RT-TID #0 Rivaroxaban [Xarelto] 20 mg PO DAILY Aspirin EC [Ecotrin Low Dose] 81 mg PO HS Allopurinol [Zyloprim] 100 mg PO DAILY Biotin 10,000 mcg PO DAILY Levothyroxine Sodium [Synthroid] 75 mcg PO DAILY@0500 Potassium Chloride ER [K-Dur 20] 20 meq PO DAILY Amiodarone [Cordarone] 200 mg PO DAILY Furosemide [Lasix] 40 mg PO DAILY #30 tablet Discharge Medication List Albuterol Sulfate [Ventolin HFA] 2 puff INHALATION RT-Q6H PRN 08/11/13 [History] Vit C/E/Zn/Coppr/Lutein/Zeaxan [Preservision Areds 2 Softgel] 1 cap PO BID 03/02/15 [History] Atorvastatin [Lipitor] 40 mg PO HS #30 tab 03/04/15 [Rx] Budesonide [Pulmicort] 0.5 mg INHALATION RT-BID 08/30/17 [History] Cholecalciferol [Vitamin D3 (25 Mcg = 1000 Iu)] 1,000 unit PO DAILY 08/30/17 [History] Magnesium Oxide [Mag-Ox] 250 mg PO DAILY 08/30/17 [History] guaiFENesin [Mucinex] 600 mg PO BID 08/30/17 [History] Ipratropium Nebulized [Atrovent Nebulized 0.2 MG/ML] 0.5 mg INHALATION RT-TID #0 09/07/17 [Rx] Rivaroxaban [Xarelto] 20 mg PO DAILY 09/11/17 [History] Allopurinol [Zyloprim] 100 mg PO DAILY 10/22/18 [History] Amiodarone [Cordarone] 200 mg PO DAILY 10/22/18 [History] Aspirin EC [Ecotrin Low Dose] 81 mg PO HS 10/22/18 [History] Biotin 10,000 mcg PO DAILY 10/22/18 [History] Levothyroxine Sodium [Synthroid] 75 mcg PO DAILY@0500 10/22/18 [History] Potassium Chloride ER [K-Dur 20] 20 meq PO DAILY 10/22/18 [History] Furosemide [Lasix] 40 mg PO DAILY #30 tablet 10/27/18 [Rx] predniSONE 10 mg PO DAILY #30 tab 10/27/18 [Rx] Follow up Appointment(s)/Referral(s): Arnel Leary MD [STAFF PHYSICIAN] - 1 Week Nirali Elizabeth MD [Primary Care Provider] - 1-2 days Patient Instructions/Handouts: Heart Failure (DC), COPD (Chronic Obstructive Pulmonary Disease) (DC) Discharge Disposition: HOME SELF-CARE
[2018-10-28] MEDS ORDERED: LEVOFLOXACIN 750 MG TAB PO SCH (09:00)
== END 2018-10-27 14:28 | disposition home or self-care (01) | DRG 871 ==
LOC: EC 13:25 → 4MS4W 16:31
PROVIDERS: ADMIT Internal Medicine; ATTEND Internal Medicine
DX: A41.9 Sepsis, unspecified organism (principal); I50.33 Acute on chronic diastolic (congestive) heart failure; J15.6 Pneumonia due to other Gram-negative bacteria; J44.0 Chronic obstructive pulmonary disease with (acute) lower respiratory infection; J44.1 Chronic obstructive pulmonary disease with (acute) exacerbation; J45.41 Moderate persistent asthma with (acute) exacerbation; N17.9 Acute kidney failure, unspecified; H35.30 Unspecified macular degeneration; I25.2 Old myocardial infarction; I25.10 Atherosclerotic heart disease of native coronary artery without angina pectoris; I48.2 Chronic atrial fibrillation; Z79.01 Long term (current) use of anticoagulants; I11.0 Hypertensive heart disease with heart failure; M81.0 Age-related osteoporosis without current pathological fracture; T38.0X5A Adverse effect of glucocorticoids and synthetic analogues, initial encounter; Z79.890 Hormone replacement therapy; Z79.899 Other long term (current) drug therapy; Z80.3 Family history of malignant neoplasm of breast; Z82.49 Family history of ischemic heart disease and other diseases of the circulatory system; Z85.828 Personal history of other malignant neoplasm of skin; Z87.01 Personal history of pneumonia (recurrent); Z87.891 Personal history of nicotine dependence; Z90.49 Acquired absence of other specified parts of digestive tract; Z90.710 Acquired absence of both cervix and uterus; Z95.5 Presence of coronary angioplasty implant and graft; Z99.81 Dependence on supplemental oxygen; Z98.49 Cataract extraction status, unspecified eye; E07.9 Disorder of thyroid, unspecified; Z83.6 Family history of other diseases of the respiratory system; Z82.3 Family history of stroke; Z83.2 Family history of diseases of the blood and blood-forming organs and certain disorders involving the immune mechanism; R73.9 Hyperglycemia, unspecified; Z88.5 Allergy status to narcotic agent
CPT/HCPCS: 36415; 71046; 80048; 80053; 81003; 83605; 83735; 83880; 84484; 85025; 85027; 85610; 85730; 87040; 87070; 87086; 87205; 93005; 94640; 94760; 96365; 96375; 99291

== ENCOUNTER → 2019-02-26 | Outpatient (CLI) | payer MEDICARE ==
--- NOTE | 2019-02-27 14:42 | MM ---
Reason for exam: screening (asymptomatic). Last mammogram was performed 1 year and 1 month ago. History: Patient is postmenopausal and has history of other cancer at age 59. Family history of premenopausal breast cancer in mother at age 40. Took hormonal contraceptives for 15 years. Physical Findings: A clinical breast exam by your physician is recommended on an annual basis and results should be correlated with mammographic findings. MG 3D Screening Mammo W/Cad Bilateral CC and MLO view(s) were taken. Prior study comparison: January 24, 2018, bilateral MG 3d screening mammo w/cad. December 29, 2016, bilateral MG 3d screening mammo w/cad. There are scattered fibroglandular densities. There are benign appearing vascular calcifications bilaterally. There is chronic nodularity in the right breast. There is no discrete abnormality. ASSESSMENT: Benign, BI-RAD 2 RECOMMENDATION: Routine screening mammogram of both breasts in 1 year.
== END | disposition home or self-care (01) ==
LOC: RADMAMWWP 11:42
PROVIDERS: ATTEND Internal Medicine
DX: Z12.31 Encounter for screening mammogram for malignant neoplasm of breast (principal)
CPT/HCPCS: 77063; 77067

== ENCOUNTER 2019-03-05 17:12 | Emergency (ER) | payer MEDICARE ==
[2019-03-05 17:20] VITALS: TEMP 97.8
[2019-03-05] MEDS ORDERED: DILTIAZEM DRIP BOLUS FROM BAG 1 MG SOLN IV ONE ×2 (17:37→18:39)
[2019-03-05] MEDS ORDERED: IPRATROPIUM-ALBUTEROL 3 ML NEB INHALATION STA (17:37)
[2019-03-05] MEDS ORDERED: DILTIAZEM 125 MG in SODIUM CHLORIDE 0.9% 100 ML IV SCH (17:45)
--- NOTE | 2019-03-05 17:56 | XR ---
EXAMINATION TYPE: XR chest 2V DATE OF EXAM: 03/05/2019 COMPARISON: 10/23/2018 HISTORY: Pneumonia TECHNIQUE: 2 views FINDINGS: There is coarsening of the pulmonary interstitial markings. Thoracic aorta is atheromatous. There is no pleural effusion. Bony thorax is intact. There are chest leads. IMPRESSION: Interstitial fibrotic changes. No heart failure seen. Old granulomatous disease. Pulmonar y interstitial density improved slightly compared to last exam.
[2019-03-05 18:06] LABS: Basophils # (A) 0.1 k/uL (0-0.2); Basophils % (A) 1 %; Eosinophils # (A) 0.2 k/uL (0-0.7); Eosinophils % (A) 2 %; HCT 38.6 % (34.0-46.0); HGB 12.5 gm/dL (11.4-16.0); Lymphocytes # (A) 1.7 k/uL (1.0-4.8); Lymphocytes % (A) 18 %; MCH 26.6 pg (25.0-35.0); MCHC 32.3 g/dL (31.0-37.0); MCV 82.2 fL (80.0-100.0); Mean Platelet Volume 7.6; Monocytes # (A) 0.6 k/uL (0-1.0); Monocytes % (A) 6 %; Neutrophils # (A) 6.8 k/uL (1.3-7.7); Neutrophils % (A) 71 %; Platelet Count 237 k/uL (150-450); RDW 15.9 % (11.5-15.5); WBC 9.6 k/uL (3.8-10.6)
--- NOTE | 2019-03-05 18:08 | ED ---
Arrhythmia/Palpitations HPI - General Source: patient, RN notes reviewed Mode of arrival: wheelchair Limitations: no limitations <Martin Rivera - Last Filed: 03/05/19 18:07> <Fabian Dimas - Last Filed: 03/05/19 19:09> - General Chief Complaint: Arrhythmia/Palpitations Stated Complaint: AFib Time Seen by Provider: 03/05/19 17:26 - History of Present Illness Initial Comments: 72-year-old female presents emergency Department with chief complaint of palpitations, concern for A. fib. Patient has a history of A. fib have ablation 1 year ago. Patient states that she still is on Xarelto. Patient also takes amiodarone. Patient states that her heart was racing very rapidly today states it felt like her chest was pounding. She does feel short of breath with this is normal for her with her COPD. Patient denies fever, chills, productive cough, leg swelling, headache, dizziness, nausea vomiting. Patient states she feels that the symptoms are slowing down at this time. (Martin Rivera) - Related Data Home Medications Medication Instructions Recorded Confirmed Albuterol Sulfate [Ventolin HFA] 2 puff INHALATION RT-Q6H PRN 08/11/13 10/22/18 Vit C/E/Zn/Coppr/Lutein/Zeaxan 1 cap PO BID 03/02/15 10/22/18 [Preservision Areds 2 Softgel] Budesonide [Pulmicort] 0.5 mg INHALATION RT-BID 08/30/17 10/22/18 Cholecalciferol [Vitamin D3 (25 1,000 unit PO DAILY 08/30/17 10/22/18 Mcg = 1000 Iu)] Magnesium Oxide [Mag-Ox] 250 mg PO DAILY 08/30/17 10/22/18 guaiFENesin [Mucinex] 600 mg PO BID 08/30/17 10/22/18 Rivaroxaban [Xarelto] 20 mg PO DAILY 09/11/17 10/22/18 Allopurinol [Zyloprim] 100 mg PO DAILY 10/22/18 10/22/18 Amiodarone [Cordarone] 200 mg PO DAILY 10/22/18 10/22/18 Aspirin EC [Ecotrin Low Dose] 81 mg PO HS 10/22/18 10/22/18 Biotin 10,000 mcg PO DAILY 10/22/18 10/22/18 Levothyroxine Sodium [Synthroid] 75 mcg PO DAILY@0500 10/22/18 10/22/18 Potassium Chloride ER [K-Dur 20] 20 meq PO DAILY 10/22/18 10/22/18 Previous Rx's Medication Instructions Recorded Atorvastatin [Lipitor] 40 mg PO HS #30 tab 03/04/15 Ipratropium Nebulized [Atrovent 0.5 mg INHALATION RT-TID #0 09/07/17 Nebulized 0.2 MG/ML] Amoxicillin/Potassium Clav 1 tab PO BID 3 Days #6 tab 10/27/18 [Augmentin 875-125 Tablet] Furosemide [Lasix] 40 mg PO DAILY #30 tablet 10/27/18 predniSONE 10 mg PO DAILY #30 tab 10/27/18 Allergies Allergy/AdvReac Type Severity Reaction Status Date / Time codeine Allergy Itching Verified 10/22/18 14:55 Review of Systems ROS Other: All systems not noted in ROS Statement are negative. <Martin Rivera - Last Filed: 03/05/19 18:07> ROS Other: All systems not noted in ROS Statement are negative. <Fabian Dimas - Last Filed: 03/05/19 19:09> ROS Statement: Those systems with pertinent positive or pertinent negative responses have been documented in the HPI. Past Medical History Past Medical History: Atrial Fibrillation, Asthma, Coronary Artery Disease (CAD), Cancer, COPD, Myocardial Infarction ([place]), Osteoarthritis (OA), Pneumonia, Thyroid Disorder Additional Past Medical History / Comment(s): See Dr Trimble's H&P,Gout, hiatal hernia, MACULAR DEGENERATION, SKIN CANCER, degenerative disc disease,osteoporosis Last Myocardial Infarction Date:: 2011 History of Any Multi-Drug Resistant Organisms: None Reported Past Surgical History: Ablation, Cholecystectomy, Heart Catheterization With Stent, Hysterectomy, Orthopedic Surgery, Tonsillectomy Additional Past Surgical History / Comment(s): right shoulder, left wrist. Thyroid Nodule removed,cataracts, LOOP RECORDER-11/23/17 CHRIO ABLATION Feb WITH CARDIOVERTION Past Anesthesia/Blood Transfusion Reactions: No Reported Reaction Date of Last Stent Placement:: 2011 Type of Cardiac Device: Loop Device Placement Date:: 11/23/17 Past Psychological History: No Psychological Hx Reported Smoking Status: Former smoker Past Alcohol Use History: None Reported Past Drug Use History: None Reported - Past Family History Mother Family Medical History: Cancer, Congestive Heart Failure (CHF), Myocardial Infarction ([place]), Pneumonia, Pulmonary Embolus Additional Family Medical History / Comment(s): breast CA Father Family Medical History: CVA/TIA, Myocardial Infarction ([place]) <Martin Rivera - Last Filed: 03/05/19 18:07> General Exam Limitations: no limitations General appearance: alert, in no apparent distress Head exam: Present: atraumatic, normocephalic, normal inspection Eye exam: Present: normal appearance, PERRL, EOMI. Absent: scleral icterus, conjunctival injection, periorbital swelling ENT exam: Present: normal exam, normal oropharynx, mucous membranes moist Neck exam: Present: normal inspection, full ROM. Absent: tenderness, meningismus, lymphadenopathy Respiratory exam: Present: wheezes. Absent: normal lung sounds bilaterally, respiratory distress, rales, rhonchi, stridor Cardiovascular Exam: Present: tachycardia, irregular rhythm, normal heart sounds. Absent: regular rate, normal rhythm, systolic murmur, diastolic murmur, rubs, gallop, clicks GI/Abdominal exam: Present: soft, normal bowel sounds. Absent: distended, tenderness, guarding, rebound, rigid Extremities exam: Absent: pedal edema <Martin Rivera - Last Filed: 03/05/19 18:07> Course Vital Signs 03/05/19 03/05/19 03/05/19 17:18 17:41 18:10 Temperature 97.8 F Pulse Rate 130 H 126 H Pulse Rate [ 132 H Left Sitting Radial] Respiratory 20 Rate Blood Pressure 160/93 O2 Sat by Pulse 96 Oximetry 03/05/19 18:19 Temperature Pulse Rate 121 H Pulse Rate [ Left Sitting Radial] Respiratory Rate Blood Pressure O2 Sat by Pulse Oximetry EKG Findings - EKG Comments: EKG Findings:: EKG repeat shows normal sinus rhythm rate of 68, NH 144, QRS 112, QTC 429 <Fabian Dimas - Last Filed: 03/05/19 19:09> Medical Decision Making - Lab Data Result diagrams: 03/05/19 17:34 <Martin Rivera - Last Filed: 03/05/19 18:07> - Lab Data Result diagrams: 03/05/19 17:34 03/05/19 17:34 <Fabian Dimas - Last Filed: 03/05/19 19:09> - Medical Decision Making 73 female here for evaluation patient presents with palpitations and history of atrial fibrillation, patient does present afebrile with RVR mildly elevated troponin patient is anticoagulate with no chest pain or shortness of breath. Heart is improved here in the ER patient's Emetrol without difficulties improved back to normal sinus rhythm and patient will be discharged home (Randall Dimas) - Lab Data Lab Results 03/05/19 03/05/19 03/05/19 Range/Units 17:34 17:34 17:34 WBC 9.6 (3.8-10.6) k/uL RBC 4.70 (3.80-5.40) m/uL Hgb 12.5 (11.4-16.0) gm/dL Hct 38.6 (34.0-46.0) % MCV 82.2 (80.0-100.0) fL MCH 26.6 (25.0-35.0) pg MCHC 32.3 (31.0-37.0) g/dL RDW 15.9 H (11.5-15.5) % Plt Count 237 (150-450) k/uL Neutrophils % 71 % Lymphocytes % 18 % Monocytes % 6 % Eosinophils % 2 % Basophils % 1 % Neutrophils # 6.8 (1.3-7.7) k/uL Lymphocytes # 1.7 (1.0-4.8) k/uL Monocytes # 0.6 (0-1.0) k/uL Eosinophils # 0.2 (0-0.7) k/uL Basophils # 0.1 (0-0.2) k/uL PT 13.3 H (9.0-12.0) sec INR 1.3 H (<1.2) APTT 32.4 H (22.0-30.0) sec Sodium 139 (137-145) mmol/L Potassium 4.6 (3.5-5.1) mmol/L Chloride 108 H (98-107) mmol/L Carbon Dioxide 22 (22-30) mmol/L Anion Gap 9 mmol/L BUN 22 H (7-17) mg/dL Creatinine 1.33 H (0.52-1.04) mg/dL Est GFR (CKD-EPI)AfAm 46 (>60 ml/min/1.73 sqM) Est GFR (CKD-EPI)NonAf 40 (>60 ml/min/1.73 sqM) Glucose 104 H (74-99) mg/dL Calcium 9.7 (8.4-10.2) mg/dL Magnesium 1.9 (1.6-2.3) mg/dL Total Bilirubin 0.6 (0.2-1.3) mg/dL AST 39 H (14-36) U/L ALT 15 (4-34) U/L Alkaline Phosphatase 98 (38-126) U/L Troponin I (0.000-0.034) ng/mL Total Protein 7.3 (6.3-8.2) g/dL Albumin 4.1 (3.5-5.0) g/dL 03/05/19 Range/Units 17:34 WBC (3.8-10.6) k/uL RBC (3.80-5.40) m/uL Hgb (11.4-16.0) gm/dL Hct (34.0-46.0) % MCV (80.0-100.0) fL MCH (25.0-35.0) pg MCHC (31.0-37.0) g/dL RDW (11.5-15.5) % Plt Count (150-450) k/uL Neutrophils % % Lymphocytes % % Monocytes % % Eosinophils % % Basophils % % Neutrophils # (1.3-7.7) k/uL Lymphocytes # (1.0-4.8) k/uL Monocytes # (0-1.0) k/uL Eosinophils # (0-0.7) k/uL Basophils # (0-0.2) k/uL PT (9.0-12.0) sec INR (<1.2) APTT (22.0-30.0) sec Sodium (137-145) mmol/L Potassium (3.5-5.1) mmol/L Chloride (98-107) mmol/L Carbon Dioxide (22-30) mmol/L Anion Gap mmol/L BUN (7-17) mg/dL Creatinine (0.52-1.04) mg/dL Est GFR (CKD-EPI)AfAm (>60 ml/min/1.73 sqM) Est GFR (CKD-EPI)NonAf (>60 ml/min/1.73 sqM) Glucose (74-99) mg/dL Calcium (8.4-10.2) mg/dL Magnesium (1.6-2.3) mg/dL Total Bilirubin (0.2-1.3) mg/dL AST (14-36) U/L ALT (4-34) U/L Alkaline Phosphatase (38-126) U/L Troponin I 0.057 H* (0.000-0.034) ng/mL Total Protein (6.3-8.2) g/dL Albumin (3.5-5.0) g/dL Disposition <Martin Rivera - Last Filed: 03/05/19 18:07> Is patient prescribed a controlled substance at d/c from ED?: No <Fabian Dimas - Last Filed: 03/05/19 19:09> Clinical Impression: Rapid atrial fibrillation, Atrial fibrillation with rapid ventricular response, Atrial fibrillation Narrative: Afib RVR resolved (Fabian Dimas) Disposition: HOME SELF-CARE Condition: Good Instructions (If sedation given, give patient instructions): A-fib (Atrial Fibrillation) (ED) Referrals: Nirali Elizabeth MD [Primary Care Provider] - 1-2 days
[2019-03-05 18:10] LABS: Albumin 4.1 g/dL (3.5-5.0); Calcium 9.7 mg/dL (8.4-10.2); Magnesium 1.9 mg/dL (1.6-2.3); Potassium 4.6 mmol/L (3.5-5.1); Total Bilirubin 0.6 mg/dL (0.2-1.3); Total Protein 7.3 g/dL (6.3-8.2)
[2019-03-05 18:11] LABS: INR 1.3 (<1.2); Partial Thromboplastin Time 32.4 sec (22.0-30.0); Prothrombin Time 13.3 sec (9.0-12.0)
[2019-03-05 19:50] VITALS: BP 132/71; PULSE 67; RESP 16
== END 2019-03-05 19:53 | disposition home or self-care (01) ==
LOC: EC 17:12
DX: I48.91 Unspecified atrial fibrillation (principal); I25.10 Atherosclerotic heart disease of native coronary artery without angina pectoris; J44.9 Chronic obstructive pulmonary disease, unspecified; I25.2 Old myocardial infarction; E07.9 Disorder of thyroid, unspecified; M10.9 Gout, unspecified; Z85.828 Personal history of other malignant neoplasm of skin; Z98.890 Other specified postprocedural states; Z95.5 Presence of coronary angioplasty implant and graft; Z87.891 Personal history of nicotine dependence; Z82.49 Family history of ischemic heart disease and other diseases of the circulatory system; Z79.51 Long term (current) use of inhaled steroids; Z79.01 Long term (current) use of anticoagulants; Z79.82 Long term (current) use of aspirin; Z79.890 Hormone replacement therapy; Z79.899 Other long term (current) drug therapy; Z88.5 Allergy status to narcotic agent
CPT/HCPCS: 36415; 71046; 80053; 83735; 84484; 85025; 85610; 85730; 93005; 94640; 96365; 96376; 99285

== ENCOUNTER 2019-07-01 03:15 | Inpatient (IN) | payer MEDICARE ==
[2019-07-01] MEDS ORDERED: DILTIAZEM DRIP BOLUS FROM BAG 1 MG SOLN IV ONE ×2 (03:25→05:11)
[2019-07-01] MEDS ORDERED: SODIUM CHLORIDE 0.9% 1,000 ML IV STA (03:25)
--- NOTE | 2019-07-01 03:25 | ED ---
Arrhythmia/Palpitations HPI - General Chief Complaint: Arrhythmia/Palpitations Stated Complaint: Afib Time Seen by Provider: 07/01/19 03:22 Source: patient, RN notes reviewed, old records reviewed Mode of arrival: EMS Limitations: no limitations - History of Present Illness Initial Comments: This is a 73-year-old female DF for evaluation presents today for evaluation regards to shortness of breath chest pain heart racing. Symptoms woke her up from sleep. History of A. fib she is on Xarelto. No recent travel history no sick contacts no fevers no nausea vomiting or diarrhea no change in medications. Patient denying drug or alcohol abuse MD Complaint: rapid heart beat, "heart racing" Arrhythmia History: atrial fibrillation Associated Symptoms: shortness of breath, near-syncope Treatments Prior to Arrival: calcium channel justin - Related Data Home Medications Medication Instructions Recorded Confirmed Albuterol Sulfate [Ventolin HFA] 2 puff INHALATION RT-Q6H PRN 08/11/13 10/22/18 Vit C/E/Zn/Coppr/Lutein/Zeaxan 1 cap PO BID 03/02/15 10/22/18 [Preservision Areds 2 Softgel] Budesonide [Pulmicort] 0.5 mg INHALATION RT-BID 08/30/17 10/22/18 Cholecalciferol [Vitamin D3 (25 1,000 unit PO DAILY 08/30/17 10/22/18 Mcg = 1000 Iu)] Magnesium Oxide [Mag-Ox] 250 mg PO DAILY 08/30/17 10/22/18 guaiFENesin [Mucinex] 600 mg PO BID 08/30/17 10/22/18 Rivaroxaban [Xarelto] 20 mg PO DAILY 09/11/17 10/22/18 Allopurinol [Zyloprim] 100 mg PO DAILY 10/22/18 10/22/18 Amiodarone [Cordarone] 200 mg PO DAILY 10/22/18 10/22/18 Aspirin EC [Ecotrin Low Dose] 81 mg PO HS 10/22/18 10/22/18 Biotin 10,000 mcg PO DAILY 10/22/18 10/22/18 Levothyroxine Sodium [Synthroid] 75 mcg PO DAILY@0500 10/22/18 10/22/18 Potassium Chloride ER [K-Dur 20] 20 meq PO DAILY 10/22/18 10/22/18 Previous Rx's Medication Instructions Recorded Atorvastatin [Lipitor] 40 mg PO HS #30 tab 03/04/15 Ipratropium Nebulized [Atrovent 0.5 mg INHALATION RT-TID #0 09/07/17 Nebulized 0.2 MG/ML] Amoxicillin/Potassium Clav 1 tab PO BID 3 Days #6 tab 10/27/18 [Augmentin 875-125 Tablet] Furosemide [Lasix] 40 mg PO DAILY #30 tablet 10/27/18 predniSONE 10 mg PO DAILY #30 tab 10/27/18 Allergies Allergy/AdvReac Type Severity Reaction Status Date / Time codeine Allergy Itching Verified 10/22/18 14:55 Review of Systems ROS Statement: Those systems with pertinent positive or pertinent negative responses have been documented in the HPI. ROS Other: All systems not noted in ROS Statement are negative. Past Medical History Past Medical History: Atrial Fibrillation, Asthma, Coronary Artery Disease (CAD), Cancer, COPD, Myocardial Infarction ([place]), Osteoarthritis (OA), Pneumonia, Thyroid Disorder Additional Past Medical History / Comment(s): See Dr Trimble's H&P,Gout, hiatal hernia, MACULAR DEGENERATION, SKIN CANCER, degenerative disc disease,osteoporosis Last Myocardial Infarction Date:: 2011 History of Any Multi-Drug Resistant Organisms: None Reported Past Surgical History: Ablation, Cholecystectomy, Heart Catheterization With Stent, Hysterectomy, Orthopedic Surgery, Tonsillectomy Additional Past Surgical History / Comment(s): right shoulder, left wrist. Thyroid Nodule removed,cataracts, LOOP RECORDER-11/23/17 [facility]RIO ABLATION Feb WITH CARDIOVERTION Past Anesthesia/Blood Transfusion Reactions: No Reported Reaction Date of Last Stent Placement:: 2011 Type of Cardiac Device: Loop Device Placement Date:: 11/23/17 Past Psychological History: No Psychological Hx Reported Smoking Status: Former smoker Past Alcohol Use History: None Reported Past Drug Use History: None Reported - Past Family History Mother Family Medical History: Cancer, Congestive Heart Failure (CHF), Myocardial Infarction ([place]), Pneumonia, Pulmonary Embolus Additional Family Medical History / Comment(s): breast CA Father Family Medical History: CVA/TIA, Myocardial Infarction ([place]) General Exam Limitations: no limitations General appearance: alert, in no apparent distress, anxious Head exam: Present: atraumatic, normocephalic, normal inspection Eye exam: Present: normal appearance, PERRL, EOMI. Absent: scleral icterus, conjunctival injection, periorbital swelling ENT exam: Present: normal exam, mucous membranes moist Neck exam: Present: normal inspection. Absent: tenderness, meningismus, lymphadenopathy Respiratory exam: Present: normal lung sounds bilaterally. Absent: respiratory distress, wheezes, rales, rhonchi, stridor Cardiovascular Exam: Present: tachycardia, irregular rhythm, normal heart sounds. Absent: systolic murmur, diastolic murmur, rubs, gallop, clicks GI/Abdominal exam: Present: soft, normal bowel sounds. Absent: distended, tenderness, guarding, rebound, rigid Extremities exam: Present: normal inspection, full ROM, normal capillary refill. Absent: tenderness, pedal edema, joint swelling, calf tenderness Back exam: Present: normal inspection Neurological exam: Present: alert, oriented X3, CN II-XII intact Psychiatric exam: Present: normal affect, normal mood Skin exam: Present: warm, dry, intact, normal color. Absent: rash Course Vital Signs 07/01/19 03:18 Temperature 98.1 F Pulse Rate 150 H Respiratory 18 Rate O2 Sat by Pulse 96 Oximetry - Reevaluation(s) Reevaluation #1: 07/01/19 04:20 Medical record is reviewed Reevaluation #2: 07/01/19 04:21 Patient not feeling any better chest pain is persistent Reevaluation #3: 07/01/19 04:21 Heart is improving patient informed of results questions are answered - Consultations Consultation #1: Spoke with the [facility] were agreeable for admission EKG Findings - EKG Comments: EKG Findings:: EKG shows A. fib with RVR rate of 161 QRS 106 QTc 402 Medical Decision Making - Medical Decision Making 73 female to the ER for evaluation patient is presented for evaluation of chest pain. Patient is persistent chest pain here in the ER shortness of breath and is in A. fib with RVR rate is improving patient be admitted for cardiology observation and management - Lab Data Result diagrams: 07/01/19 03:27 Lab Results 07/01/19 07/01/19 Range/Units 03:27 03:27 WBC 10.4 (3.8-10.6) k/uL RBC 4.96 (3.80-5.40) m/uL Hgb 12.6 (11.4-16.0) gm/dL Hct 40.5 (34.0-46.0) % MCV 81.5 (80.0-100.0) fL MCH 25.4 (25.0-35.0) pg MCHC 31.2 (31.0-37.0) g/dL RDW 16.8 H (11.5-15.5) % Plt Count 232 (150-450) k/uL Neutrophils % 64 % Lymphocytes % 22 % Monocytes % 7 % Eosinophils % 3 % Basophils % 1 % Neutrophils # 6.7 (1.3-7.7) k/uL Lymphocytes # 2.3 (1.0-4.8) k/uL Monocytes # 0.7 (0-1.0) k/uL Eosinophils # 0.3 (0-0.7) k/uL Basophils # 0.1 (0-0.2) k/uL Anisocytosis Slight PT 10.7 (9.0-12.0) sec INR 1.0 (<1.2) APTT 24.3 (22.0-30.0) sec - Radiology Data Radiology results: report reviewed (Chest x-ray is negative for acute disease), image reviewed Critical Care Time Critical Care Time: Yes Total Critical Care Time: 31 Disposition Clinical Impression: Dyspnea, Chest pain, Atrial fibrillation with RVR Disposition: ADMITTED IP TO THIS [facility] Condition: Fair Is patient prescribed a controlled substance at d/c from ED?: No Referrals: Nirali Elizabeth MD [Primary Care Provider] - 1-2 days
[2019-07-01] MEDS: DILTIAZEM 125 MG in SODIUM CHLORIDE 0.9% 100 ML IV SCH (03:35)
[2019-07-01 03:36] LABS: Anisocytosis Slight; Basophils # (A) 0.1 k/uL (0-0.2); Basophils % (A) 1 %; Eosinophils # (A) 0.3 k/uL (0-0.7); Eosinophils % (A) 3 %; HCT 40.5 % (34.0-46.0); HGB 12.6 gm/dL (11.4-16.0); Lymphocytes # (A) 2.3 k/uL (1.0-4.8); Lymphocytes % (A) 22 %; MCH 25.4 pg (25.0-35.0); MCHC 31.2 g/dL (31.0-37.0); MCV 81.5 fL (80.0-100.0); Mean Platelet Volume 9.2; Monocytes # (A) 0.7 k/uL (0-1.0); Monocytes % (A) 7 %; Neutrophils # (A) 6.7 k/uL (1.3-7.7); Neutrophils % (A) 64 %; Platelet Count 232 k/uL (150-450); RBC 4.96 m/uL (3.80-5.40); RDW 16.8 % (11.5-15.5); WBC 10.4 k/uL (3.8-10.6)
[2019-07-01 03:45] LABS: Partial Thromboplastin Time 24.3 sec (22.0-30.0); Prothrombin Time 10.7 sec (9.0-12.0)
--- NOTE | 2019-07-01 03:55 | XR ---
EXAMINATION TYPE: XR chest 2V DATE OF EXAM: 07/01/2019 COMPARISON: 03/05/2019 HISTORY: Dysrhythmia. Weakness. TECHNIQUE: FINDINGS: There is coarse interstitial density in the mid and lower lung moreno. There is some bulkin ess of the pulmonary heron that could relate to adenopathy or large pulmonary arteries. Heart is top n ormal in size. There is no heart failure. I see no pleural effusion. IMPRESSION: Pulmonary interstitial fibrotic changes. There is possible bronchial adenopathy. Sarcoido sis is possible. Lung disease the same or slightly worse than last exam. No obvious heart failure.
[2019-07-01] MEDS ORDERED: ASPIRIN 81 MG PO STA (04:18)
[2019-07-01] MEDS ORDERED: NITROGLYCERIN SL TABS 0.4 MG TAB SUBLINGUAL PRN (04:18)
[2019-07-01] MEDS ORDERED: MORPHINE SULFATE 4 MG/ML SYRINGE IVP PRN (04:18)
[2019-07-01] MEDS ORDERED: MORPHINE SULFATE 4 MG/ML SYRINGE IVP STA (04:18)
[2019-07-01 04:35] LABS: Appearance,Urine Cloudy (Clear); Bacteria,Urine Rare /hpf; Bilirubin,Urine Negative (Negative); Blood,Urine Negative (Negative); Color,Urine Yellow; Glucose,Urine (UA) Negative (Negative); Ketones,Urine Negative (Negative); Leukocyte Esterase,Urine Moderate (Negative); Mucus,Urine Rare /hpf; Nitrite,Urine Negative (Negative); PH, Urine 5.5 (5.0-8.0); Protein,Urine 1+ (Negative); RBC,Urine 2 /hpf (0-5); Specific Gravity,Urine 1.018 (1.001-1.035); Squamous Epithelial Cell,Urine 4 /hpf (0-4); Urobilinogen,Urine <2.0 mg/dL (<2.0); WBC,Urine 17 /hpf (0-5)
[2019-07-01 04:36] LABS: Albumin 3.6 g/dL (3.5-5.0); Calcium 8.7 mg/dL (8.4-10.2); Magnesium 1.8 mg/dL (1.6-2.3); Potassium 4.1 mmol/L (3.5-5.1); Total Bilirubin 0.4 mg/dL (0.2-1.3); Total Protein 6.7 g/dL (6.3-8.2)
[2019-07-01] MEDS: SODIUM CHLORIDE 0.9% 1,000 ML IV SCH ×2 (04:37→16:56)
[2019-07-01] MEDS ORDERED: AMIODARONE 200 MG TAB PO SCH (09:00)
[2019-07-01] MEDS: RIVAROXABAN 20 MG TAB PO SCH (10:17)
[2019-07-01] MEDS: MAGNESIUM OXIDE 400 MG TAB PO SCH (10:17)
--- NOTE | 2019-07-01 10:31 | P.HPIM ---
History of Present Illness Patient is pleasant 73-year-old female with known history of atrial fibrillation came in with compensative heart racing chest pressure like sensation. Patient is on anti-coagulation was also at home. Patient was started on Cardizem. Patient is supposed to get a pacemaker be as patient was having bradycardia episodes with amiodarone. Patient has low TSH T4 will be obtained patient chest pain resolved at this time patient denied any fever chills patient and her nausea vomiting patient denied any recent sick contacts chest x-ray showed some chronic interstitial changes suspicion for Covid 19 is extremely low. Patient is presently on Cardizem and metoprolol and Cardizem will be weaned of 17 her heart rate is controlled. Patient does have chronic kidney disease baseline creatinine appears to be around 1.4 presently it's 1.1. Patient will also company of shortness of breath without any cough there and orthopnea paroxysmal nocturnal dyspnea Review of Systems REVIEW OF SYSTEMS: CONSTITUTIONAL: No fever, no malaise, no fatigue. HEENT: No recent visual problems or hearing problems. Denied any sore throat. CARDIOVASCULAR: As mentioned in HPI PULMONARY: no cough, no hemoptysis. GASTROINTESTINAL: No diarrhea, no nausea, no vomiting, no abdominal pain. NEUROLOGICAL: No headaches, no weakness, no numbness. HEMATOLOGICAL: Denies any bleeding or petechiae. GENITOURINARY: Denies any burning micturition, frequency, or urgency. MUSCULOSKELETAL/RHEUMATOLOGICAL: Denies any joint pain, swelling, or any muscle pain. ENDOCRINE: Denies any polyuria or polydipsia. The rest of the 14-point review of systems is negative. Past Medical History Past Medical History: Atrial Fibrillation, Asthma, Coronary Artery Disease (CAD), Cancer, COPD, Myocardial Infarction (DE), Osteoarthritis (OA), Pneumonia, Thyroid Disorder Additional Past Medical History / Comment(s): See Dr Trimble's H&P,Gout, hiatal hernia, MACULAR DEGENERATION, SKIN CANCER, degenerative disc disease,osteoporosis Last Myocardial Infarction Date:: 2011 History of Any Multi-Drug Resistant Organisms: None Reported Past Surgical History: Ablation, Cholecystectomy, Heart Catheterization With Stent, Hysterectomy, Orthopedic Surgery, Tonsillectomy Additional Past Surgical History / Comment(s): right shoulder, left wrist. Thyroid Nodule removed,cataracts, LOOP RECORDER-11/23/17 CHRIO ABLATION Feb WITH CARDIOVERTION Past Anesthesia/Blood Transfusion Reactions: No Reported Reaction Date of Last Stent Placement:: 2011 Type of Cardiac Device: Loop Device Placement Date:: 11/23/17 Smoking Status: Former smoker - Past Family History Mother Family Medical History: Cancer, Congestive Heart Failure (CHF), Myocardial Infarction (DE), Pneumonia, Pulmonary Embolus Additional Family Medical History / Comment(s): breast CA Father Family Medical History: CVA/TIA, Myocardial Infarction (DE) Medications and Allergies Home Medications Medication Instructions Recorded Confirmed Type Albuterol Sulfate [Ventolin HFA] 2 puff INHALATION RT-QID PRN 08/11/13 07/01/19 History Vit C/E/Zn/Coppr/Lutein/Zeaxan 1 cap PO BID 03/02/15 07/01/19 History [Preservision Areds 2 Softgel] Atorvastatin [Lipitor] 40 mg PO HS #30 tab 03/04/15 07/01/19 Rx Cholecalciferol [Vitamin D3 (25 1,000 unit PO DAILY 08/30/17 07/01/19 History Mcg = 1000 Iu)] Magnesium Oxide [Mag-Ox] 250 mg PO DAILY 08/30/17 07/01/19 History guaiFENesin [Mucinex] 600 mg PO BID 08/30/17 07/01/19 History Rivaroxaban [Xarelto] 20 mg PO DAILY 09/11/17 07/01/19 History Allopurinol [Zyloprim] 100 mg PO DAILY 10/22/18 07/01/19 History Levothyroxine Sodium [Synthroid] 75 mcg PO DAILY@0500 10/22/18 07/01/19 History Potassium Chloride ER [K-Dur 20] 20 meq PO DAILY 10/22/18 07/01/19 History Furosemide [Lasix] 40 mg PO DAILY #30 tablet 10/27/18 07/01/19 Rx Budesonide [Pulmicort] 2 ml INHALATION RT-BID 07/01/19 07/01/19 History Fluticasone/Umeclidin/Vilanter 1 puff INHALATION DAILY 07/01/19 07/01/19 History [Trelegy Ellipta 100-62.5-25] Ipratropium Nebulized [Atrovent 2.5 ml INHALATION RT-TID 07/01/19 07/01/19 History Nebulized 0.2 MG/ML] Allergies Allergy/AdvReac Type Severity Reaction Status Date / Time codeine Allergy Itching Verified 07/01/19 10:01 Physical Exam Vitals: Vital Signs Temp Pulse Pulse Resp BP BP Pulse Ox 07/01/19 08:00 98.0 F 124 H 18 133/76 95 07/01/19 05:29 98.2 F 103 H 18 130/96 97 07/01/19 04:34 98 F 125 H 18 147/98 96 07/01/19 03:18 98.1 F 150 H 18 159/92 96 Intake and Output 06/30/19 07/01/19 07/01/19 22:59 06:59 14:59 Intake Total 240 Balance 240 Intake: Oral 240 Other: # Voids 1 Weight 92.533 kg PHYSICAL EXAMINATION: GENERAL: The patient is alert and oriented x3, not in any acute distress. Well developed, well nourished. HEENT: Pupils are round and equally reacting to light. EOMI. No scleral icterus. No conjunctival pallor. Normocephalic, atraumatic. No pharyngeal erythema. No thyromegaly. CARDIOVASCULAR: S1 and S2 present. No murmurs, rubs, or gallops. Tachycardic irregularly irregular rhythm PULMONARY: Chest is clear to auscultation, no wheezing or crackles. ABDOMEN: Soft, nontender, nondistended, normoactive bowel sounds. No palpable organomegaly. MUSCULOSKELETAL: No joint swelling or deformity. EXTREMITIES: No cyanosis, clubbing, or pedal edema. NEUROLOGICAL: Gross neurological examination did not reveal any focal deficits. SKIN: No rashes. Results CBC & Chem 7: 07/01/19 03:27 07/01/19 04:15 Labs: Abnormal Lab Results - Last 24 Hours (Table) 07/01/19 07/01/19 07/01/19 Range/Units 03:27 04:15 04:26 RDW 16.8 H (11.5-15.5) % Carbon Dioxide 21 L (22-30) mmol/L BUN 26 H (7-17) mg/dL Creatinine 1.10 H (0.52-1.04) mg/dL Glucose 123 H (74-99) mg/dL TSH 0.398 L (0.465-4.680) mIU/L Urine Appearance Cloudy H (Clear) Urine Protein 1+ H (Negative) Ur Leukocyte Esterase Moderate H (Negative) Urine WBC 17 H (0-5) /hpf Urine Bacteria Rare H (None) /hpf Urine Mucus Rare H (None) /hpf Microbiology - Last 24 Hours (Table) 07/01/19 04:26 Urine Culture - Preliminary Urine,Voided Thrombosis Risk Factor Assmnt - Choose All That Apply Any of the Below Risk Factors Present?: Yes Each Factor Represents 1 point: Abnormal pulmonary function (COPD), Obesity (BMI >25) Other Risk Factors: Yes Each Risk Factor Represents 2 Points: Age 61-74 years Thrombosis Risk Factor Assessment Total Risk Factor Score: 4 Thrombosis Risk Factor Assessment Level: Moderate Risk Assessment and Plan Plan: -Atrial fibrillation with rapid ventricular rate: Patient will be scheduled for pacemaker placement patient was started on metoprolol, chest pain is probably secondary to atrial fibrillation no evidence of acute myocardial infarction patient was evaluated by cardiology. Shortness of breath is secondary to atrial fibrillation. Patient will be continued on Cardizem as well. We'll be weaned off. 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 Her atrial fibrillation is chronic and persistent -COPD without any acute exacerbation -Low TSH can be secondary to amiodarone which was recently discontinued will obtain a T4 level patient is on levothyroxine for hypothyroidism which will be continued -Coronary artery disease with stent in the past -Hypothyroidism
--- NOTE | 2019-07-01 10:40 | CONS ---
CONSULTATION Mrs. Arias is a 73-year-old female, followed by Dr. Flood and Dr. Trimble with known history of paroxysmal atrial fibrillation, prior history of coronary artery disease, status post percutaneous revascularization in the past, who presented with episode of palpitation and atrial fibrillation with rapid ventricular response. She has underwent ablation in November of 2017. She apparently had episode of tachy-estrellita syndrome and sinus bradycardia and was scheduled to undergo permanent pacemaker implantation yesterday. She went in atrial fibrillation with rapid ventricular response with episode of drop in the heart rate and because of that, she came into the emergency room and subsequently admitted. She had no significant chest pain. She felt somewhat dizzy, but no passing out. No significant change in her breathing. No significant peripheral edema. No PND. No orthopnea. She has history of chronic obstructive lung disease with occasional cough but no recent fever. Her coronary risk factors are remarkable for history of hyperlipidemia. She is a nondiabetic. She used to be on amiodarone that was stopped. She is on Xarelto 20 mg daily, aspirin 81 mg daily, Lipitor 40 mg daily, Pulmicort, Lasix 40 mg daily, Ventolin, Synthroid. REVIEW OF SYSTEMS: RESPIRATORY SYSTEM: She has chronic obstructive lung disease with episode of asthma. GI SYSTEM: No recent GI bleeding, no peptic ulcer disease. SYSTEM: No dysuria or hematuria. NERVOUS SYSTEM: No history of stroke or seizure. PHYSICAL EXAMINATION: She is a 73-year-old female, alert, oriented, in no apparent distress. Heart rate running in the 120s with a blood pressure of 130/70. HEAD: Normocephalic. EYES: Sclerae nonicteric. NECK: Good carotid upstroke. No bruit. No chest distention. LUNGS: Clear to auscultation. HEART: Irregular regular, S1, S2. No S3. No rub. ABDOMEN: Soft, obese, nontender. EXTREMITIES: No edema. LAB DATA: Revealed troponin 0.029. BUN and creatinine 26 and 1.1, hemoglobin of 12.6, potassium 4.1, EKG revealed atrial fibrillation with rapid ventricular response and nonspecific ST-T wave changes. Chest x-ray shows no acute infiltrate. She has evidence of pulmonary interstitial fibrosis. IMPRESSION: 1. Atrial fibrillation, paroxysmal, status post ablation. Anticoagulated. 2. Prior episode of bradycardia consistent with sick sinus syndrome, was being evaluated to undergo permanent pacemaker implantation. 3. History of hyperlipidemia. 4. History of coronary artery disease. RECOMMENDATION: Will continue IV Cardizem. I will add low-dose beta justin. Will obtain echocardiogram with Doppler and depending on her progress, further recommendation will be made. I will stop the amiodarone at this time. Thank you for this consult. Will follow with you. GWENDOLYN / KYRIEN: [id number] /
[2019-07-01] MEDS: IPRATROPIUM 0.5 MG/2.5 ML NEBU INHALATION SCH ×2 (10:58→20:01)
--- NOTE | 2019-07-01 11:36 | ECHOF ---
Referral Reason:afib MEASUREMENTS -------- HEIGHT: 152.4 cm WEIGHT: 92.5 kg BP: RVIDd: 1.8 cm (< 3.3) IVSd: 1.7 cm (0.6 - 1.1) LVIDd: 3.2 cm (3.9 - 5.3) LVPWd: 1.4 cm (0.6 - 1.1) IVSs: 2.2 cm LVIDs: 2.4 cm LVPWs: 2.5 cm LAESV Index (A-L): 57.77 ml/m Ao Diam: 2.5 cm (2.0 - 3.7) AV Cusp: 2.0 cm (1.5 - 2.6) LA Diam: 4.9 cm (2.7 - 3.8) RAP: 5.00 mmHg RVSP: 50.35 mmHg FINDINGS -------- Atrial fibrillation. This was a technically good study. The left ventricular size is normal. There is moderate concentric left ventricular hypertrophy. O verall left ventricular systolic function is normal with, an EF between 55 - 60 %. Left ventricular fillimg pressure cannot be estimated due to Atrial fibrillation. The right ventricle is normal in size. LA is severely dilated >40 ml/m2 The right atrial size is normal. Aortic valve is trileaflet and is mildly thickened. The mitral valve is normal. The mitral valve leaflets are mildly thickened. Severe mitral regurgi tation is present. The tricuspid valve appears structurally normal. Mild tricuspid regurgitation present. There is s evere pulmonary hypertension. The right ventricular systolic pressure, as measured by Doppler, is 5 0.35mmHg. There is no pulmonic regurgitation present. The aortic root size is normal. Normal inferior vena cava with normal inspiratory collapse consistent with estimated right atrial pre ssure of 5 mmHg. There is a trivial pericardial effusion present. CONCLUSIONS -------- 1. Atrial fibrillation. 2. This was a technically good study. 3. The left ventricular size is normal. 4. There is moderate concentric left ventricular hypertrophy. 5. Overall left ventricular systolic function is normal with, an EF between 55 - 60 %. 6. Left ventricular fillimg pressure cannot be estimated due to Atrial fibrillation. 7. The right ventricle is normal in size. 8. LA is severely dilated >40 ml/m2 9. The right atrial size is normal. 10. Aortic valve is trileaflet and is mildly thickened. 11. The mitral valve is normal. 12. The mitral valve leaflets are mildly thickened. 13. Severe mitral regurgitation is present. 14. The tricuspid valve appears structurally normal. 15. Mild tricuspid regurgitation present. 16. There is severe pulmonary hypertension. 17. The right ventricular systolic pressure, as measured by Doppler, is 50.35mmHg. 18. There is no pulmonic regurgitation present. 19. The aortic root size is normal. 20. Normal inferior vena cava with normal inspiratory collapse consistent with estimated right atrial pressure of 5 mmHg. 21. There is a trivial pericardial effusion present. BAND TUMBLER: Rosa M Mccoy RDCS
[2019-07-01] MEDS: BUDESONIDE 0.5 MG/2 ML NEBU INHALATION SCH (20:01)
[2019-07-01] MEDS: ATORVASTATIN 40 MG TAB PO SCH (20:07)
[2019-07-01] MEDS: METOPROLOL TARTRATE 25 MG TAB PO SCH (20:07)
[2019-07-02] MEDS: SODIUM CHLORIDE 0.9% 1,000 ML IV SCH ×3 (02:40→20:37)
[2019-07-02] MEDS: DILTIAZEM 125 MG in SODIUM CHLORIDE 0.9% 100 ML IV SCH (04:36)
[2019-07-02] MEDS: LEVOTHYROXINE 75 MCG TAB PO SCH (04:39)
[2019-07-02 07:42] LABS: Calcium 8.7 mg/dL (8.4-10.2); Potassium 4.4 mmol/L (3.5-5.1)
[2019-07-02] MEDS: BUDESONIDE 0.5 MG/2 ML NEBU INHALATION SCH ×2 (08:10→20:05)
[2019-07-02] MEDS: IPRATROPIUM 0.5 MG/2.5 ML NEBU INHALATION SCH ×3 (08:10→20:05)
[2019-07-02] MEDS ORDERED: ASPIRIN 325 MG TAB PO SCH (09:00)
[2019-07-02] MEDS: MAGNESIUM OXIDE 400 MG TAB PO SCH (09:58)
[2019-07-02] MEDS: ASPIRIN 81 MG PO SCH (09:59)
[2019-07-02] MEDS: METOPROLOL TARTRATE 25 MG TAB PO SCH ×2 (09:59→20:37)
[2019-07-02] MEDS: RIVAROXABAN 20 MG TAB PO SCH (09:59)
[2019-07-02] MEDS ORDERED: PSEUDOEPHEDRINE 30 MG TAB PO PRN (10:55)
[2019-07-02] MEDS: guaiFENesin 600 MG TABLET.ER PO SCH (11:37)
--- NOTE | 2019-07-02 11:50 | P.PN ---
Subjective Progress Note Date: 07/02/19 This is a pleasant 73-year-old female who follows with Dr. Flynn and Dr. Trimble in the office, she was seen in consultation yesterday by Dr. Steward. She has a known history of paroxysmal atrial fibrillation, prior history of coronary artery disease with previous PCI, I pretension, hyperlipidemia, non- diabetic, hypothyroidism. Patient also has a history of a prior ablation for atrial fibrillation. Patient also has known tachybradycardia syndrome and was scheduled to undergo permanent pacemaker implantation yesterday. She presented to the hospital with atrial fibrillation with rapid ventricular response. She continues to be in atrial fibrillation this morning, her heart rate is in the 70s to 80s. On review of her telemetry she has had no episodes of heart rate being too low or of any positives. Overall she feels well today. Potassium is 4.4, BUN 28, creatinine 1.2. Echocardiogram with Doppler study revealed a normal left ventricular systolic function with severe mitral regurgitation and severe pulmonary hypertension. Objective - Vital Signs Vital signs: Vital Signs Temp 97.9 F 07/02/19 08:30 Pulse 69 07/02/19 08:30 Resp 18 07/02/19 08:30 BP 178/73 07/02/19 08:30 Pulse Ox 93 L 07/02/19 08:30 Intake & Output 07/01/19 07/02/19 07/02/19 18:59 06:59 18:59 Intake Total 2148.667 480 Balance 2148.667 480 Weight 94.8 kg Intake: Intake, IV Titration 48.667 Amount Diltiazem 125 mg In 48.667 Sodium Chloride 0.9% 100 ml @ 5 MG/HR 5 mls/hr IV .Q24H [facility] Rx#:[id number] Oral 2100 480 Other: # Voids 2 1 - Exam PHYSICAL EXAMINATION: GENERAL: 73-year-old female in no acute distress at the time of my examination HEENT: Head is atraumatic, normocephalic. Pupils equal, round. Sclera anicteric. Conjunctiva are clear. Mucous membranes of the mouth are moist. Nec k is supple. There is no elevated jugular venous pressure. No carotid bruit is heard. HEART EXAMINATION: Heart S1 and S2 irregularly irregular a systolic murmur is heard CHEST EXAMINATION: Lungs are clear to auscultation and precussion. No chest wall tenderness is noted on palpation or with deep breathing. ABDOMEN: Soft, nontender. Bowel sounds are heard. No organomegaly noted. EXTREMITIES: 2+ peripheral pulses with no evidence of peripheral edema and no calf tenderness noted. NEUROLOGIC patient is awake, alert and oriented 3 . . - Labs CBC & Chem 7: 07/01/19 03:27 07/02/19 06:30 Labs: Abnormal Lab Results - Last 24 Hours (Table) 07/01/19 07/02/19 Range/Units 15:03 06:30 Chloride 112 H (98-107) mmol/L Carbon Dioxide 20 L (22-30) mmol/L BUN 28 H (7-17) mg/dL Creatinine 1.22 H (0.52-1.04) mg/dL Troponin I 0.082 H* (0.000-0.034) ng/mL Microbiology - Last 24 Hours (Table) 07/01/19 04:26 Urine Culture - Preliminary Urine,Voided Gram Neg Bacilli Assessment and Plan Plan: Assessment and plan #1 atrial fibrillation with moderately rapid ventricular response, paroxysmal, status post prior ablation. Anticoagulated. #2 prior episode of bradycardia consistent with sick sinus syndrome, was being evaluated as an outpatient for permanent pacemaker implantation #3 hyperlipidemia #4 coronary artery disease with prior PCI #5 hypothyroidism Plan We will discontinue the IV Cardizem and continue the beta justin at 25 mg one tablet by mouth twice a day. From cardiology's perspective, the patient may be able to be discharged home today. We will make her a follow-up appointment in the office to see Dr. Flynn. DNP note has been reviewed, I agree with a documented findings and plan of care. Patient was seen and examined.
--- NOTE | 2019-07-02 11:56 | P.PN ---
Subjective Patient is pleasant 73-year-old female with known history of atrial fibrillation came in with compensative heart racing chest pressure like sensation. Patient is on anti-coagulation was also at home. Patient was started on Cardizem. Patient is supposed to get a pacemaker be as patient was having bradycardia episodes with amiodarone. Patient has low TSH T4 will be obtained patient chest pain resolved at this time patient denied any fever chills patient and her nausea vomiting patient denied any recent sick contacts chest x-ray showed some chronic interstitial changes suspicion for Covid 19 is extremely low. Patient is presently on Cardizem and metoprolol and Cardizem will be weaned of 17 her heart rate is controlled. Patient does have chronic kidney disease baseline creatinine appears to be around 1.4 presently it's 1.1. Patient will also company of shortness of breath without any cough there and orthopnea paroxysmal nocturnal dyspnea 07/02/2019 Patient chest pressure improved. She has chronic dyspnea and cough with clear phlegm. Also she has COPD and lung fibrosis and she follow up with Dr. Leary home he was called today for consult. Cardiology evaluated the patient and recommended to start beta justin and cleared her for discharge However her urine culture is positive for gram-negative bacilli. Patient with no fever or white cell count. Pending final culture results she was started on Rocephin Objective - Vital Signs Vital signs: Vital Signs Temp 97.9 F 07/02/19 08:30 Pulse 69 07/02/19 08:30 Resp 18 07/02/19 08:30 BP 178/73 07/02/19 08:30 Pulse Ox 93 L 07/02/19 08:30 Intake & Output 07/01/19 07/02/19 07/02/19 18:59 06:59 18:59 Intake Total 2148.667 480 Balance 2148.667 480 Weight 94.8 kg Intake: Intake, IV Titration 48.667 Amount Diltiazem 125 mg In 48.667 Sodium Chloride 0.9% 100 ml @ 5 MG/HR 5 mls/hr IV .Q24H [facility] Rx#:[id number] Oral 2100 480 Other: # Voids 2 1 - Exam GENERAL: The patient is alert and oriented x3, not in any acute distress. Well developed, well nourished. HEENT: Pupils are round and equally reacting to light. EOMI. No scleral icterus. No conjunctival pallor. Normocephalic, atraumatic. No pharyngeal erythema. No thyromegaly. CARDIOVASCULAR: S1 and S2 present. No murmurs, rubs, or gallops. PULMONARY: Chest is clear to auscultation, no wheezing or crackles. ABDOMEN: Soft, nontender, nondistended, normoactive bowel sounds. No palpable organomegaly. MUSCULOSKELETAL: No joint swelling or deformity. EXTREMITIES: No cyanosis, clubbing, or pedal edema. NEUROLOGICAL: Gross neurological examination did not reveal any focal deficits. SKIN: No rashes. no petechiae. - Labs CBC & Chem 7: 07/01/19 03:27 07/02/19 06:30 Labs: Abnormal Lab Results - Last 24 Hours (Table) 07/01/19 07/02/19 Range/Units 15:03 06:30 Chloride 112 H (98-107) mmol/L Carbon Dioxide 20 L (22-30) mmol/L BUN 28 H (7-17) mg/dL Creatinine 1.22 H (0.52-1.04) mg/dL Troponin I 0.082 H* (0.000-0.034) ng/mL Microbiology - Last 24 Hours (Table) 07/01/19 04:26 Urine Culture - Preliminary Urine,Voided Gram Neg Bacilli Assessment and Plan Assessment: #1 atrial fibrillation with moderately rapid ventricular response, paroxysmal, status post prior ablation. Anticoagulated. #2 prior episode of bradycardia consistent with sick sinus syndrome, was being evaluated as an outpatient for permanent pacemaker implantation #3 possible UTI with positive urine culture for gram-negative bacilli. Continue with Rocephin and follow-up urine culture #4 coronary artery disease with prior PCI #5 hypothyroidism #6 hyperlipidemia
--- NOTE | 2019-07-02 13:02 | P.CNPUL ---
History of Present Illness Consult date: 07/02/19 Reason for consult: dyspnea Chief complaint: Shortness of breath History of present illness: 73-year-old female well-known to me with history of chronic persistent moderate to severe asthma and COPD, patient has the problem associated with atrial fibrillation with rapid ventricular response intermittently, she has been fairly stable at home he started having problems associated with sudden onset of shortness of breath and palpitation she came into the hospital with pressure- like sensation and heart racing Patient is on anti-coagulation was also at home. Patient was started on Cardizem. Patient is supposed to get a pacemaker be as patient was having bradycardia episodes with amiodarone. chest x-ray showed so me chronic interstitial changes suspicion for Covid 19 is extremely low. Today patient is feeling better her chest pressure has resolved she has some cough with clear sputum, and denies any night sweats fever or chills, cardiovascular services has evaluated the patient, patient has been noted to have gram-negative bacilli in the urine Review of Systems All systems: negative Past Medical History Past Medical History: Atrial Fibrillation, Asthma, Coronary Artery Disease (CAD), Cancer, COPD, Myocardial Infarction (PA), Osteoarthritis (OA), Pneumonia, Thyroid Disorder Additional Past Medical History / Comment(s): See Dr Trimble's H&P,Gout, hiatal hernia, MACULAR DEGENERATION, SKIN CANCER, degenerative disc disease,osteoporosis Last Myocardial Infarction Date:: 2011 History of Any Multi-Drug Resistant Organisms: None Reported Past Surgical History: Ablation, Cholecystectomy, Heart Catheterization With Stent, Hysterectomy, Orthopedic Surgery, Tonsillectomy Additional Past Surgical History / Comment(s): right shoulder, left wrist. Thyroid Nodule removed,cataracts, LOOP RECORDER-11/23/17 CHRIO ABLATION Feb WITH CARDIOVERTION Past Anesthesia/Blood Transfusion Reactions: No Reported Reaction Date of Last Stent Placement:: 2011 Type of Cardiac Device: Loop Device Placement Date:: 11/23/17 Smoking Status: Former smoker - Past Family History Mother Family Medical History: Cancer, Congestive Heart Failure (CHF), Myocardial Infarction (PA), Pneumonia, Pulmonary Embolus Additional Family Medical History / Comment(s): breast CA Father Family Medical History: CVA/TIA, Myocardial Infarction (PA) Medications and Allergies Home Medications Medication Instructions Recorded Confirmed Type Albuterol Sulfate [Ventolin HFA] 2 puff INHALATION RT-QID PRN 06/01/14 04/20/20 History Vit C/E/Zn/Coppr/Lutein/Zeaxan 1 cap PO BID 03/02/15 07/01/19 History [Preservision Areds 2 Softgel] Atorvastatin [Lipitor] 40 mg PO HS #30 tab 03/04/15 07/01/19 Rx Cholecalciferol [Vitamin D3 (25 1,000 unit PO DAILY 08/30/17 07/01/19 History Mcg = 1000 Iu)] Magnesium Oxide [Mag-Ox] 250 mg PO DAILY 08/30/17 07/01/19 History guaiFENesin [Mucinex] 600 mg PO BID 08/30/17 07/01/19 History Rivaroxaban [Xarelto] 20 mg PO DAILY 09/11/17 07/01/19 History Allopurinol [Zyloprim] 100 mg PO DAILY 10/22/18 07/01/19 History Levothyroxine Sodium [Synthroid] 75 mcg PO DAILY@0500 10/22/18 07/01/19 History Potassium Chloride ER [K-Dur 20] 20 meq PO DAILY 10/22/18 07/01/19 History Furosemide [Lasix] 40 mg PO DAILY #30 tablet 10/27/18 07/01/19 Rx Aspirin 325 mg PO DAILY 07/01/19 07/01/19 History Budesonide [Pulmicort] 2 ml INHALATION RT-BID 07/01/19 07/01/19 History Fluticasone/Umeclidin/Vilanter 1 puff INHALATION DAILY 07/01/19 07/01/19 History [Trelegy Ellipta 100-62.5-25] Ipratropium Nebulized [Atrovent 2.5 ml INHALATION RT-TID 07/01/19 07/01/19 History Nebulized 0.2 MG/ML] Vit A,C & L-Gutcox-Qcoeqsbr [Ivite] 1 tab PO DAILY 07/01/19 07/01/19 History Allergies Allergy/AdvReac Type Severity Reaction Status Date / Time codeine Allergy Itching Verified 07/01/19 10:01 Physical Exam Vitals: Vital Signs Temp Pulse Pulse Resp BP BP Pulse Ox 07/02/19 08:30 97.9 F 69 18 178/73 93 L 07/02/19 08:24 60 07/02/19 08:12 56 L 07/02/19 04:00 64 17 141/61 97 07/01/19 23:20 97.9 F 80 17 98 07/01/19 20:21 60 07/01/19 20:01 60 07/01/19 20:00 97.9 F 61 17 145/67 96 07/01/19 15:08 72 16 07/01/19 15:07 97.6 F 72 16 137/59 96 Intake and Output 07/01/19 07/02/19 07/02/19 22:59 06:59 14:59 Intake Total 540 480 Balance 540 480 Intake: Oral 540 480 Other: # Voids 1 1 Weight 94.8 kg - Constitutional General appearance: average body habitus, cooperative, disheveled - EENT Eyes: EOMI, PERRLA Ears: bilateral: normal - Neck Carotids: bilateral: upstroke normal Thyroid: bilateral: normal size - Respiratory Respiratory: bilateral: CTA, diminished - Cardiovascular Rhythm: regular Heart sounds: normal: S1, S2 - Gastrointestinal General gastrointestinal: normal bowel sounds, soft - Integumentary Integumentary: decreased turgor - Neurologic Neurologic: CNII-XII intact - Musculoskeletal Musculoskeletal: gait normal, generalized weakness, strength equal bilaterally - Psychiatric Psychiatric: A&O x's 3, appropriate affect, intact judgment & insight Results - Laboratory Findings CBC and BMP: 07/01/19 03:27 07/02/19 06:30 PT/INR, D-dimer PT 10.7 sec (9.0-12.0) 07/01/19 03:27 INR 1.0 (<1.2) 07/01/19 03:27 Abnormal lab findings: Abnormal Labs 07/01/19 07/01/19 07/01/19 03:27 04:15 04:26 RDW 16.8 H Chloride Carbon Dioxide 21 L BUN 26 H Creatinine 1.10 H Glucose 123 H Troponin I TSH 0.398 L Urine Appearance Cloudy H Urine Protein 1+ H Ur Leukocyte Esterase Moderate H Urine WBC 17 H Urine Bacteria Rare H Urine Mucus Rare H 07/01/19 07/01/19 07/02/19 09:54 15:03 06:30 RDW Chloride 112 H Carbon Dioxide 20 L BUN 28 H Creatinine 1.22 H Glucose Troponin I 0.071 H* 0.082 H* TSH Urine Appearance Urine Protein Ur Leukocyte Esterase Urine WBC Urine Bacteria Urine Mucus - Diagnostic Findings Chest x-ray: report reviewed, image reviewed (Finding as noted above the interstitial changes are likely due to Baseline COPD) Assessment and Plan Assessment: Ongoing shortness of breath and palpitation with chest tightness related to A. fib with RVR and symptoms improve Acute diastolic heart failure due to A. fib RVR Interstitial lung disease to be less likely findings on chest x-ray are due to chronic COPD lung changes and some edema in the lung Urinary tract infection due to gram-negative bacilli Obstructive sleep apnea and sleep disorder breathing Plan: Continue supportive care Gentle diuresis Heart rhythm and rate controlled No further workup for interstitial lung disease at this time, we will evaluated further outpatient basis changes likely related to multifactorial processes Further evaluation pending plan of care as per response of the patient Agree with antibiotics related to UTI Time with Patient: Greater than 30
[2019-07-02] MEDS: ATORVASTATIN 40 MG TAB PO SCH (20:37)
[2019-07-03] MEDS: IPRATROPIUM-ALBUTEROL 3 ML NEB INHALATION PRN (03:55)
[2019-07-03 03:58] VITALS: RESP 18
[2019-07-03] MEDS: LEVOTHYROXINE 75 MCG TAB PO SCH (05:01)
[2019-07-03] MEDS: BUDESONIDE 0.5 MG/2 ML NEBU INHALATION SCH ×2 (07:11→19:49)
[2019-07-03] MEDS: IPRATROPIUM 0.5 MG/2.5 ML NEBU INHALATION SCH ×3 (07:11→19:49)
[2019-07-03] MEDS: methylPREDNISolone SOD SUCCI 40 MG/ML 1 ML VIAL IV SCH ×2 (09:09→15:41)
[2019-07-03] MEDS: METOPROLOL TARTRATE 25 MG TAB PO SCH ×2 (09:13→20:39)
[2019-07-03] MEDS: guaiFENesin 600 MG TABLET.ER PO SCH (09:13)
[2019-07-03] MEDS: RIVAROXABAN 20 MG TAB PO SCH (09:13)
[2019-07-03] MEDS: MAGNESIUM OXIDE 400 MG TAB PO SCH (09:13)
[2019-07-03] MEDS: ASPIRIN 81 MG PO SCH (09:13)
--- NOTE | 2019-07-03 09:37 | P.PN ---
Subjective Progress Note Date: 07/03/19 Principal diagnosis: Acute COPD exacerbation Ongoing shortness of breath and palpitation with chest tightness related to A. fib with RVR and symptoms improve Acute diastolic heart failure due to A. fib RVR Interstitial lung disease to be less likely findings on chest x-ray are due to chronic COPD lung changes and some edema in the lung Urinary tract infection due to gram-negative bacilli Obstructive sleep apnea and sleep disorder breathing 07/03/2019, patient seen and evaluated examined during rounds lab reviewed medications reviewed, patient had a episode of shortness of breath cough and wheezing last night she woke up from sleep, patient received her breathing carmelita tments she is slightly better with still have clearly audible wheezing very fine varicose expiration patient is coughing more with the sputum now turning into yellow, will continue IV Rocephin and IV Solu-Medrol continue breathing treatments patient appears to having COPD exacerbation along with tra cheobronchitis 73-year-old female well-known to me with history of chronic persistent moderate to severe asthma and COPD, patient has the problem associated with atrial fibrillation with rapid ventricular response intermittently, she has been fairly stable at home he started having problems associated with sudden onset of shortness of breath and palpitation she came into the hospital with pressure- like sensation and heart racing Patient is on anti-coagulation was also at home. Patient was started on Cardizem. Patient is supposed to get a pacemaker be as patient was having bradycardia episodes with amiodarone. chest x-ray showed some chronic interstitial changes suspicion for Covid 19 is extremely low. Today patient is feeling better her chest pressure has resolved she has some cough with clear sputum, and denies any night sweats fever or chills, cardiovascular services has evaluated the patient, patient has been noted to have gram-negative bacilli in the urine Objective - Vital Signs Vital signs: Vital Signs Temp 97.3 F L 07/03/19 07:55 Pulse 71 07/03/19 07:55 Resp 18 07/03/19 07:55 BP 124/60 07/03/19 07:55 Pulse Ox 98 07/03/19 07:55 Intake & Output 07/02/19 07/03/19 07/03/19 18:59 06:59 18:59 Intake Total 1130 890 Balance 1130 890 Weight 97.3 kg Intake: Intake, IV Titration 50 50 Amount cefTRIAXone 1 gm In 50 50 Sodium Chloride 0.9% 50 ml @ 100 mls/hr IVPB Q24HR [facility] Rx#:[id number] Oral 1080 840 Other: # Voids 1 1 1 - Exam - Constitutional General appearance: average body habitus, cooperative, disheveled - EENT Eyes: EOMI, PERRLA Ears: bilateral: normal - Neck Carotids: bilateral: upstroke normal Thyroid: bilateral: normal size - Respiratory Respiratory: bilateral: CTA, diminished - Cardiovascular Rhythm: regular Heart sounds: normal: S1, S2 - Gastrointestinal General gastrointestinal: normal bowel sounds, soft - Integumentary Integumentary: decreased turgor - Neurologic Neurologic: CNII-XII intact - Musculoskeletal Musculoskeletal: gait normal, generalized weakness, strength equal bilaterally - Psychiatric Psychiatric: A&O x's 3, appropriate affect, intact judgment & insight - Labs CBC & Chem 7: 07/01/19 03:27 07/02/19 06:30 Labs: Microbiology - Last 24 Hours (Table) 07/01/19 04:26 Urine Culture - Preliminary Urine,Voided Pseudomonas aeruginosa Assessment and Plan Assessment: Acute COPD exacerbation Tracheobronchitis Ongoing shortness of breath and palpitation with chest tightness related to A. fib with RVR and symptoms improve Acute diastolic heart failure due to A. fib RVR Interstitial lung disease to be less likely findings on chest x-ray are due to chronic COPD lung changes and some edema in the lung Urinary tract infection due to gram-negative bacilli Obstructive sleep apnea and sleep disorder breathing Plan: IV steroids Continue bronchodilators Continue antibiotics Continue supportive care Gentle diuresis Heart rhythm and rate controlled No further workup for interstitial lung disease at this time, we will evaluated further outpatient basis changes likely related to multifactorial processes Further evaluation pending plan of care as per response of the patient
[2019-07-03] MEDS ORDERED: FUROSEMIDE 10 MG/ML 2 ML VIAL IV ONE (09:58)
--- NOTE | 2019-07-03 12:18 | PN ---
PROGRESS NOTE Mrs. Arias is a 73-year-old female with history of paroxysmal atrial fibrillation, tachy-estrellita syndrome with is scheduled to undergo permanent pacemaker implantation as an outpatient, presented with atrial fibrillation, rapid ventricular response. She is back in sinus mechanism. She is feeling well this morning. Yesterday she was wheezing and coughing, was seen by Dr. Leary and was started on steroids for exacerbation of COPD. She is feeling better today. She denies any dizziness or palpitation. She is in sinus mechanism. She has some peripheral edema. She continues to be at this time on aspirin once a day, Lipitor 40 mg daily, metoprolol 25 mg twice a day, Xarelto 20 mg daily. PHYSICAL EXAMINATION: Blood pressure 124/60 with a heart rate in the 70s. LUNGS: Clear. HEART: Regular rate and rhythm, S1, S2. No S3. No rub. ABDOMEN: Soft, obese, nontender. EXTREMITIES: 1+ edema. IMPRESSION: 1. Paroxysmal atrial fibrillation back in sinus mechanism. 2. Sick sinus syndrome. 3. Exacerbation of chronic obstructive pulmonary disease. 4. Mild peripheral edema. 5. Obstructive sleep apnea. RECOMMENDATION: I will give her a dose of IV Lasix. Otherwise from the cardiac standpoint, she is stable whenever it is agreeable with Dr. Leary , she can go home and follow up as an outpatient with Dr. Flynn. MMALIZAL / KYRIEN: [id number] / MTDD
--- NOTE | 2019-07-03 13:29 | P.PN ---
Subjective Patient is pleasant 73-year-old female with known history of atrial fibrillation came in with compensative heart racing chest pressure like sensation. Patient is on anti-coagulation was also at home. Patient was started on Cardizem. Patient is supposed to get a pacemaker be as patient was having bradycardia episodes with amiodarone. Patient has low TSH T4 will be obtained patient chest pain resolved at this time patient denied any fever chills patient and her nausea vomiting patient denied any recent sick contacts chest x-ray showed some chronic interstitial changes suspicion for Covid 19 is extremely low. Patient is presently on Cardizem and metoprolol and Cardizem will be weaned of 17 her heart rate is controlled. Patient does have chronic kidney disease baseline creatinine appears to be around 1.4 presently it's 1.1. Patient will also company of shortness of breath without any cough there and orthopnea paroxysmal nocturnal dyspnea 07/02/2019 Patient chest pressure improved. She has chronic dyspnea and cough with clear phlegm. Also she has COPD and lung fibrosis and she follow up with Dr. Leary home he was called today for consult. Cardiology evaluated the patient and recommended to start beta justin and cleared her for discharge However her urine culture is positive for gram-negative bacilli. Patient with no fever or white cell count. Pending final culture results she was started on Rocephin 07/03/2019 Patient had a rough night this morning due to her dyspnea, this morning she was noted to be more tachypneic with cough and phlegm. 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 Other than some tachypnea, patient she is concerned that if she is discharged today and her PCP office is closed with Dr. Elizabeth then she has a compact to the hospital. I agree with IV steroids and keep monitoring Possible discharge in 24-48 hours Objective - Vital Signs Vital signs: Vital Signs Temp 97.3 F L 07/03/19 07:55 Pulse 68 07/03/19 11:19 Resp 18 07/03/19 07:55 BP 124/60 07/03/19 07:55 Pulse Ox 98 07/03/19 07:55 Intake & Output 07/02/19 07/03/19 07/03/19 18:59 06:59 18:59 Intake Total 1130 1130 Balance 1130 1130 Weight 97.3 kg Intake: Intake, IV Titration 50 50 Amount cefTRIAXone 1 gm In 50 50 Sodium Chloride 0.9% 50 ml @ 100 mls/hr IVPB Q24HR [facility] Rx#:[id number] Oral 1080 1080 Other: # Voids 1 1 1 - Exam GENERAL: The patient is alert and oriented x3, not in any acute distress. Well developed, well nourished. HEENT: Pupils are round and equally reacting to light. EOMI. No scleral icterus. No conjunctival pallor. Normocephalic, atraumatic. No pharyngeal erythema. No thyromegaly. CARDIOVASCULAR: S1 and S2 present. No murmurs, rubs, or gallops. PULMONARY: Chest is clear to auscultation, no crackles. Bilateral scattered wheezing ABDOMEN: Soft, nontender, nondistended, normoactive bowel sounds. No palpable organomegaly. MUSCULOSKELETAL: No joint swelling or deformity. EXTREMITIES: No cyanosis, clubbing, or pedal edema. NEUROLOGICAL: Gross neurological examination did not reveal any focal deficits. SKIN: No rashes. no petechiae. - Labs CBC & Chem 7: 07/01/19 03:27 07/02/19 06:30 Labs: Microbiology - Last 24 Hours (Table) 07/01/19 04:26 Urine Culture - Final Urine,Voided Pseudomonas aeruginosa Assessment and Plan Assessment: #1 atrial fibrillation with moderately rapid ventricular response, paroxysmal, status post prior ablation. Anticoagulated. #2 prior episode of bradycardia consistent with sick sinus syndrome, was being evaluated as an outpatient for permanent pacemaker implantation #3 possible UTI with positive urine culture for pseudomonas. Continue with Rocephin and follow-up with ID consult #4 acute COPD exacerbation, continue with IV steroids and Rocephin #5 hypothyroidism #6 hyperlipidemia 7# coronary artery disease with prior PCI
[2019-07-03] MEDS: SODIUM CHLORIDE 0.9% 1,000 ML IV SCH (18:23)
--- NOTE | 2019-07-03 18:52 | CONS ---
CONSULTATION DATE OF SERVICE: 07/03/2019 REASON FOR CONSULTATION: Positive urine culture. HISTORY OF PRESENT ILLNESS: The patient is a 73-year-old female with past medical history significant for atrial fibrillation and COPD, presenting to the ER at [facility] on 07/01/2019 with chief complaints of increasing shortness of breath and palpitation. The patient apparently woke up from sleep with these symptoms. Denies significant chest pain, cough or sputum production. With these symptoms, the patient was evaluated by the ER physician on arrival at the ER. The patient has remained afebrile. The patient had a normal white count. Troponin was mildly elevated. The patient's urine showed moderate leukocyte esterase and 17 WBCs. The patient did not have any urinary symptoms or burning or frequency. Urine culture has been finalized with Pseudomonas aeruginosa, and that prompted this infectious disease consultation. The patient's chest x-ray on admission shows pulmonary interstitial fibrotic changes and possible bronchial adenopathy. Sarcoidosis is a possibility. I was asked to see the patient regarding need for treatment of this positive urine culture; as mentioned above, in a patient with no urinary burning or frequency, and no fever or elevated white count has been recorded during this admission. REVIEW OF SYSTEMS: Positive points have been mentioned in HPI. Rest of the systems are negative. PAST MEDICAL HISTORY: Atrial fibrillation, COPD, coronary artery disease, [place], pneumonia and history of skin cancer. PAST SURGICAL HISTORY: Node ablation, cholecystectomy, PTCA with stent, hysterectomy, tonsillectomy, left foot surgery. SOCIAL HISTORY: Remote history of smoking. No drinking or drug use. FAMILY HISTORY: Mother with history of breast cancer, congestive heart failure. Father with history of [place] and CVA. ALLERGIES: CODEINE. MEDICATIONS: The patient is currently on DuoNeb, aspirin, Lipitor, Pulmicort, Rocephin, Mucinex, Synthroid, magnesium oxide, Solu-Medrol, Lopressor, morphine, Sudafed, Xarelto and IV fluid. PHYSICAL EXAMINATION: Blood pressure is 125/58 with a pulse of 66, temperature 97.6. She is 96% on 2 L nasal cannula. General description is an elderly female up in the bed in no distress. No tachypnea or accessory muscle of respiration use. HEENT examination shows no pallor or scleral icterus. Oral mucosa membrane is dry. No pharyngeal erythema or thrush. NECK: Trachea is central. No thyromegaly. LUNGS: Unlabored breathing. Decreased intensity of breath sounds. No wheeze or crackle. HEART: S1, S2. Regular rate and rhythm. ABDOMEN: Soft. No tenderness. No guarding or rigidity. EXTREMITIES: No edema of the feet. SKIN EXAMINATION: No rash or mass palpable. Neurologically the patient is awake, alert, oriented x3. Mood and affect normal. LABS: Hemoglobin is 12.6, white count 10.4, BUN of 28, creatinine 1.22. Urine with moderate leukocyte esterase, 17 WBCs. Culture with Pseudomonas aeruginosa, low colony count. DIAGNOSTIC IMPRESSION AND PLAN: Patient with a positive urine culture with Pseudomonas aeruginosa, low colony count, in this patient who currently does not have any urinary burning or frequency or suprapubic or flank pain, likely representing colonization or contamination; and no need for any systemic antibiotic therapy for the same. PLAN: 1. No need for any systemic antibiotic therapy for the positive urine culture, as mentioned above. 2. We will monitor the patient closely. If she develops any urinary symptom or a fever, will re-culture before starting her on antibiotics. Thank you for this consultation. Will follow this patient along with you. MMODL / IJN: [id number] /
[2019-07-03] MEDS ORDERED: FUROSEMIDE 10 MG/ML 2 ML VIAL IV STA (19:46)
[2019-07-03] MEDS: ATORVASTATIN 40 MG TAB PO SCH (20:39)
[2019-07-03 20:46] LABS: Calcium 9.3 mg/dL (8.4-10.2); Potassium 4.3 mmol/L (3.5-5.1)
[2019-07-03] MEDS ORDERED: ACETAMINOPHEN TAB 500 MG TAB PO PRN (21:43)
[2019-07-04] MEDS: methylPREDNISolone SOD SUCCI 40 MG/ML 1 ML VIAL IV SCH ×2 (00:45→08:51)
[2019-07-04] MEDS: LEVOTHYROXINE 75 MCG TAB PO SCH (05:05)
[2019-07-04] MEDS: IPRATROPIUM-ALBUTEROL 3 ML NEB INHALATION PRN ×2 (07:38→11:02)
[2019-07-04] MEDS: IPRATROPIUM 0.5 MG/2.5 ML NEBU INHALATION SCH ×2 (07:38→11:02)
[2019-07-04] MEDS: BUDESONIDE 0.5 MG/2 ML NEBU INHALATION SCH (07:38)
[2019-07-04] MEDS: RIVAROXABAN 20 MG TAB PO SCH (08:52)
[2019-07-04] MEDS: ASPIRIN 81 MG PO SCH (08:52)
[2019-07-04] MEDS: METOPROLOL TARTRATE 25 MG TAB PO SCH (08:52)
[2019-07-04] MEDS: guaiFENesin 600 MG TABLET.ER PO SCH (08:52)
[2019-07-04] MEDS: MAGNESIUM OXIDE 400 MG TAB PO SCH (08:52)
--- NOTE | 2019-07-04 10:08 | P.PN ---
Subjective Progress Note Date: 07/04/19 Principal diagnosis: Acute COPD exacerbation Ongoing shortness of breath and palpitation with chest tightness related to A. fib with RVR and symptoms improve Acute diastolic heart failure due to A. fib RVR Interstitial lung disease to be less likely findings on chest x-ray are due to chronic COPD lung changes and some edema in the lung Urinary tract infection due to gram-negative bacilli Obstructive sleep apnea and sleep disorder breathing 07/04/2019, patient seen eval examined during the rounds overall respiratory standpoint doing well cuff congestion shortness of breath and wheezing is improved, denies any chest pain sitting upright in the bed breathing comfortably , patient continued to get IV antibiotics breathing treatment and steroids, patient A. fib is better under control, and likely will be discharged home in the morning would recommend to change Solu-Medrol to Medrol Dosepak at the time of discharge 07/03/2019, patient seen and evaluated examined during rounds lab reviewed medications reviewed, patient had a episode of shortness of breath cough and wheezing last night she woke up from sleep, patient received her breathing treatments she is slightly better with still have clearly audible wheezing very fine varicose expiration patient is coughing more with the sputum now turning into yellow, will continue IV Rocephin and IV Solu-Medrol continue breathing treatments patient appears to having COPD exacerbation along with tracheobronchitis 73-year-old female well-known to me with history of chronic persistent moderate to severe asthma and COPD, patient has the problem associated with atrial fibrillation with rapid ventricular response intermittently, she has been fairly stable at home he started having problems associated with sudden onset of shortness of breath and palpitation she came into the hospital with pressure- like sensation and heart racing Patient is on anti-coagulation was also at home. Patient was started on Cardizem. Patient is supposed to get a pacemaker be as patient was having bradycardia episodes with amiodarone. chest x-ray showed some chronic interstitial changes suspicion for Covid 19 is extremely low. Toda y patient is feeling better her chest pressure has resolved she has some cough with clear sputum, and denies any night sweats fever or chills, cardiovascular services has evaluated the patient, patient has been noted to have gram-negative bacilli in the urine Objective - Vital Signs Vital signs: Vital Signs Temp 97.6 F 07/04/19 08:00 Pulse 64 07/04/19 08:00 Resp 18 07/04/19 08:00 BP 146/66 07/04/19 08:00 Pulse Ox 93 L 07/04/19 08:00 Intake & Output 07/03/19 07/04/19 07/04/19 18:59 06:59 18:59 Intake Total 1370 Output Total 1700 1450 Balance -330 -1450 Weight 94.3 kg Intake: Intake, IV Titration 50 Amount cefTRIAXone 1 gm In 50 Sodium Chloride 0.9% 50 ml @ 100 mls/hr IVPB Q24HR [facility] Rx#:[id number] Oral 1320 Output: Urine 1700 1450 Other: # Voids 1 3 - Exam - Constitutional General appearance: average body habitus, cooperative, disheveled - EENT Eyes: EOMI, PERRLA Ears: bilateral: normal - Neck Carotids: bilateral: upstroke normal Thyroid: bilateral: normal size - Respiratory Respiratory: bilateral: CTA, diminished - Cardiovascular Rhythm: regular Heart sounds: normal: S1, S2 - Gastrointestinal General gastrointestinal: normal bowel sounds, soft - Integumentary Integumentary: decreased turgor - Neurologic Neurologic: CNII-XII intact - Musculoskeletal Musculoskeletal: gait normal, generalized weakness, strength equal bilaterally - Psychiatric Psychiatric: A&O x's 3, appropriate affect, intact judgment & insight - Labs CBC & Chem 7: 07/01/19 03:27 07/03/19 19:57 Labs: Abnormal Lab Results - Last 24 Hours (Table) 07/03/19 Range/Units 19:57 Sodium 134 L (137-145) mmol/L Carbon Dioxide 19 L (22-30) mmol/L BUN 31 H (7-17) mg/dL Glucose 192 H (74-99) mg/dL Microbiology - Last 24 Hours (Table) 07/01/19 04:26 Urine Culture - Final Urine,Voided Pseudomonas aeruginosa Assessment and Plan Assessment: Acute COPD exacerbation Tracheobronchitis Ongoing shortness of breath and palpitation with chest tightness related to A. fib with RVR and symptoms improve Acute diastolic heart failure due to A. fib RVR Interstitial lung disease to be less likely findings on chest x-ray are due to chronic COPD lung changes and some edema in the lung Urinary tract infection due to gram-negative bacilli pseudomonas aeruginosa, sensitive to Rocephin Obstructive sleep apnea and sleep disorder breathing Plan: IV steroids, can be changed to oral at the time of discharge Continue bronchodilators Continue antibiotics, can be changed to oral at the time of discharge Continue supportive care Gentle diuresis Heart rhythm and rate controlled No further workup for interstitial lung disease at this time, we will evaluated further outpatient basis changes likely related to multifactorial processes Further evaluation pending plan of care as per response of the patient Time with Patient: Greater than 30
[2019-07-04 11:09] VITALS: BP 151/68; TEMP 97.5
[2019-07-04 11:17] VITALS: PULSE 68
--- NOTE | 2019-07-04 11:17 | P.PN ---
Subjective Progress Note Date: 07/04/19 This is a pleasant 73-year-old female who follows with Dr. Flynn and Dr. Trimble in the office, she was seen in consultation yesterday by Dr. Steward. She has a known history of paroxysmal atrial fibrillation, prior history of coronary artery disease with previous PCI, I pretension, hyperlipidemia, non- diabetic, hypothyroidism. Patient also has a history of a prior ablation for atrial fibrillation. Patient also has known tachybradycardia syndrome and was scheduled to undergo permanent pacemaker implantation yesterday. She presented to the hospital with atrial fibrillation with rapid ventricular response. She continues to be in atrial fibrillation this morning, her heart rate is in the 70s to 80s. On review of her telemetry she has had no episodes of heart rate being too low or of any positives. Overall she feels well today. Potassium is 4.4, BUN 28, creatinine 1.2. Echocardiogram with Doppler study revealed a normal left ventricular systolic function with severe mitral regurgitation and severe pulmonary hypertension. 07/04/2019 Patient seen and examined this morning, overall doing well. Hemodynamically stable. Objective - Vital Signs Vital signs: Vital Signs Temp 97.5 F L 07/04/19 11:06 Pulse 68 07/04/19 11:16 Resp 18 07/04/19 11:06 BP 151/68 07/04/19 11:06 Pulse Ox 92 L 07/04/19 11:06 Intake & Output 07/03/19 07/04/19 07/04/19 18:59 06:59 18:59 Intake Total 1370 240 Output Total 1700 1450 Balance -330 -1450 240 Weight 94.3 kg Intake: Intake, IV Titration 50 Amount cefTRIAXone 1 gm In 50 Sodium Chloride 0.9% 50 ml @ 100 mls/hr IVPB Q24HR [facility] Rx#:[id number] Oral 1320 240 Output: Urine 1700 1450 Other: # Voids 1 3 2 - Exam PHYSICAL EXAMINATION: GENERAL: 73-year-old female in no acute distress at the time of my examination HEENT: Head is atraumatic, normocephalic. Pupils equal, round. Sclera anicteric. Conjunctiva are clear. Mucous membranes of the mouth are moist. Neck is supple. There is no elevated jugular venous pressure. No carotid bruit is heard. HEART EXAMINATION: Heart S1 and S2 irregularly irregular a systolic murmur is heard CHEST EXAMINATION: Lungs are clear to auscultation and precussion. No chest wall tenderness is noted on palpation or with deep breathing. ABDOMEN: Soft, nontender. Bowel sounds are heard. No organomegaly noted. EXTREMITIES: 2+ peripheral pulses with no evidence of peripheral edema and no calf tenderness noted. NEUROLOGIC patient is awake, alert and oriented 3 . . - Labs CBC & Chem 7: 07/01/19 03:27 07/03/19 19:57 Labs: Abnormal Lab Results - Last 24 Hours (Table) 07/03/19 Range/Units 19:57 Sodium 134 L (137-145) mmol/L Carbon Dioxide 19 L (22-30) mmol/L BUN 31 H (7-17) mg/dL Glucose 192 H (74-99) mg/dL Microbiology - Last 24 Hours (Table) 07/01/19 04:26 Urine Culture - Final Urine,Voided Pseudomonas aeruginosa Assessment and Plan Plan: Assessment and plan #1 atrial fibrillation with moderately rapid ventricular response, paroxysmal, status post prior ablation. Anticoagulated. #2 prior episode of bradycardia consistent with sick sinus syndrome, was being evaluated as an outpatient for permanent pacemaker implantation #3 hyperlipidemia #4 coronary artery disease with prior PCI #5 hypothyroidism Plan From cardiology's perspective, the patient may be able to be discharged home today. We'll make her a follow-up appointment to see Dr. Currie in the office post discharge. DNP note has been reviewed, I agree with a documented findings and plan of care. Patient was seen and examined.
[2019-07-04] MEDS ORDERED: FUROSEMIDE 10 MG/ML 2 ML VIAL IV ONE (12:03)
--- NOTE | 2019-07-04 13:38 | P.DS ---
Providers Date of admission: 07/01/19 04:18 Attending physician: May Tanner Consults: 07/01/19 04:18 Consult Physician Urgent Consulting Provider: Zohreh Steward Consult Reason/Comments: afibRVR,CP Do you want consulting provider notified?: Yes 07/02/19 11:08 Consult Physician Urgent Consulting Provider: Arnel Leary Consult Reason/Comments: copd, pulmonary fibrosis Do you want consulting provider notified?: Yes 07/03/19 09:52 Consult Physician Urgent Consulting Provider: Al Gomez Consult Reason/Comments: pseudomonas in urine with no fever or leukocytosis Do you want consulting provider notified?: Yes Primary care physician: Nirali Lds Hospital Course: Diagnoses: #1 atrial fibrillation with moderately rapid ventricular response, paroxysmal, status post prior ablation. Anticoagulated. #2 prior episode of bradycardia consistent with sick sinus syndrome, was being evaluated and recommended for outpatient for permanent pacemaker implantation #3 asymptomatic bacteriuria, no need for antibiotics #4 COPD, with acute exacerbation. With possible pulmonary fibrosis, needs follow-up as an outpatient with her care assistant Dr. Leary #5 hypothyroidism #6 hyperlipidemia #7 coronary artery disease with prior PCI #8 chronic kidney disease, stage III Hospital course: Patient is pleasant 73-year-old female with known history of atrial fibrillation came in with compensative heart racing chest pressure like sensation. Patient is on anti-coagulation was also at home. Patient was started on Cardizem. Patient is supposed to get a pacemaker be as patient was having bradycardia epis odes with amiodarone. Patient has been evaluated by woods warden, her amiodarone was stopped and added metoprolol 25 mg twice daily, patient remained hemodynamically stable and woods warden evaluated the patient and cleared her for discharge with recommendation to follow up with Dr. Flynn on 07/10 for evaluation for pacemaker placement. Patient has chronic COPD with chronic dyspnea and cough, she might have some element and pulmonary fibrosis, Dr. Leary evaluated her. Patient was started on steroids and ceftriaxone, patient showed interval improvement in her breathing, patient was cleared for discharge by pulmonary service with recommendation for follow-up as an outpatient Also her urine analysis was abnormal with urine culture growing Pseudomonas, patient was been evaluated by ID team, no need for antibiotic as patient is asymptomatic with no fever or leukocytosis Patient on the day of discharge better, her chest pain/pressure resolved, her breathing is improving, she has also occasional coughing and phlegm which is her baseline. No worsening dyspnea. No change in urine or bowel habits. No abdominal pain. No nausea vomiting and she is tolerating diet well. Patient was cleared for discharge by all consultants including cardiology and pulmonary services. Patient will be discharged on tapered steroids, short course of oral antibiotics, metoprolol. As well as aspirin and xarelto ( home meds) Problems and management plan were discussed with the patient and he verbalized understanding and acceptance Patient was found stable and can be discharged home however he needs follow-up as an outpatient. Patient was instructed to follow up with PCP Dr. Elizabeth within one week and patient agrees. Also patient was instructed to follow up with Dr. Leary and she agrees. She also agrees with the appointments made for her with Dr. Gautam on 07/10 and schedule follow-up. Gen: patient is a AAOx3, no distress CVS: S1-S2, RRR, no murmur Lungs: B/L CTA, no wheezing Abdomen: soft, no distention, no tenderness, positive bowel sounds Extremity: no leg edema or induration Time spent more than 35 minutes Patient Condition at Discharge: Fair Plan - Discharge Summary New Discharge Prescriptions: No Action Albuterol Sulfate [Ventolin HFA] 2 puff INHALATION RT-QID PRN PRN Reason: Shortness Of Breath Vit C/E/Zn/Coppr/Lutein/Zeaxan [Preservision Areds 2 Softgel] 1 cap PO BID Atorvastatin [Lipitor] 40 mg PO HS #30 tab Magnesium Oxide [Mag-Ox] 250 mg PO DAILY Cholecalciferol [Vitamin D3 (25 Mcg = 1000 Iu)] 1,000 unit PO DAILY guaiFENesin [Mucinex] 600 mg PO BID Rivaroxaban [Xarelto] 20 mg PO DAILY Allopurinol [Zyloprim] 100 mg PO DAILY Levothyroxine Sodium [Synthroid] 75 mcg PO DAILY@0500 Potassium Chloride ER [K-Dur 20] 20 meq PO DAILY Furosemide [Lasix] 40 mg PO DAILY #30 tablet Ipratropium Nebulized [Atrovent Nebulized 0.2 MG/ML] 2.5 ml INHALATION RT-TID Budesonide [Pulmicort] 2 ml INHALATION RT-BID Fluticasone/Umeclidin/Vilanter [Trelegy Ellipta 100-62.5-25] 1 puff INHALATION DAILY Aspirin 325 mg PO DAILY Vit A,C & F-Ccsnxm-Pwqqhjad [Ivite] 1 tab PO DAILY Discharge Medication List Albuterol Sulfate [Ventolin HFA] 2 puff INHALATION RT-QID PRN 08/11/13 [History] Vit C/E/Zn/Coppr/Lutein/Zeaxan [Preservision Areds 2 Softgel] 1 cap PO BID 03/02/15 [History] Atorvastatin [Lipitor] 40 mg PO HS #30 tab 03/04/15 [Rx] Cholecalciferol [Vitamin D3 (25 Mcg = 1000 Iu)] 1,000 unit PO DAILY 08/30/17 [History] Magnesium Oxide [Mag-Ox] 250 mg PO DAILY 08/30/17 [History] guaiFENesin [Mucinex] 600 mg PO BID 08/30/17 [History] Rivaroxaban [Xarelto] 20 mg PO DAILY 09/11/17 [History] Allopurinol [Zyloprim] 100 mg PO DAILY 10/22/18 [History] Levothyroxine Sodium [Synthroid] 75 mcg PO DAILY@0500 10/22/18 [History] Potassium Chloride ER [K-Dur 20] 20 meq PO DAILY 10/22/18 [History] Furosemide [Lasix] 40 mg PO DAILY #30 tablet 10/27/18 [Rx] Aspirin 325 mg PO DAILY 07/01/19 [History] Budesonide [Pulmicort] 2 ml INHALATION RT-BID 07/01/19 [History] Fluticasone/Umeclidin/Vilanter [Trelegy Ellipta 100-62.5-25] 1 puff INHALATION DAILY 07/01/19 [History] Ipratropium Nebulized [Atrovent Nebulized 0.2 MG/ML] 2.5 ml INHALATION RT-TID 07/01/19 [History] Vit A,C & W-Zztjhz-Ejvpnwdn [Ivite] 1 tab PO DAILY 07/01/19 [History] Follow up Appointment(s)/Referral(s): Arnel Leary MD [STAFF PHYSICIAN] - 4 Weeks Nirali Elizabeth MD [Primary Care Provider] - 1-2 days Rajesh Flynn MD [STAFF PHYSICIAN] - 07/11/19 1:15 pm
--- NOTE | 2019-07-04 15:48 | PN ---
PROGRESS NOTE DATE OF SERVICE: 07/04/2019 REASON FOR FOLLOWUP: Positive urine culture with Pseudomonas. INTERVAL HISTORY: The patient is currently afebrile. She was seen on rounds early this afternoon. The patient has been breathing comfortably. Denies having any chest pain or cough. No abdominal pain. Denies any burning or frequency of urine or suprapubic or flank pain. PHYSICAL EXAMINATION: Blood pressure is 151/68 with a pulse of 72, temperature 97.5. She is 92% on 2 L nasal cannula. General description is an elderly female up in bed in no distress. RESPIRATORY SYSTEM: Unlabored breathing with decreased intensity of breath sounds. No wheeze. HEART: S1, S2. Regular rate and rhythm. ABDOMEN: Soft. No tenderness. LABS: BUN of 31, creatinine 0.98. DIAGNOSTIC IMPRESSION AND PLAN: Patient with a positive urine culture with Pseudomonas aeruginosa, low colony count, in this patient who currently does not have any urinary symptoms, likely representing contamination or colonization. No need for systemic antibiotic therapy for the same while inpatient or on discharge. MMODL / IJN: [id number] /
== END 2019-07-04 16:27 | disposition home or self-care (01) | DRG 308 ==
LOC: EC 03:15 → 3SCARD 04:18
PROVIDERS: ADMIT Hospitalist; ATTEND Hospitalist
DX: I48.0 Paroxysmal atrial fibrillation (principal); I50.31 Acute diastolic (congestive) heart failure; J44.1 Chronic obstructive pulmonary disease with (acute) exacerbation; I13.0 Hypertensive heart and chronic kidney disease with heart failure and stage 1 through stage 4 chronic kidney disease, or unspecified chronic kidney disease; Z68.41 Body mass index [BMI] 40.0-44.9, adult; I27.20 Pulmonary hypertension, unspecified; I34.0 Nonrheumatic mitral (valve) insufficiency; I49.5 Sick sinus syndrome; E03.9 Hypothyroidism, unspecified; E78.5 Hyperlipidemia, unspecified; G47.33 Obstructive sleep apnea (adult) (pediatric); I25.10 Atherosclerotic heart disease of native coronary artery without angina pectoris; E66.9 Obesity, unspecified; J84.10 Pulmonary fibrosis, unspecified; M81.0 Age-related osteoporosis without current pathological fracture; N18.3 Chronic kidney disease, stage 3 (moderate); Z79.01 Long term (current) use of anticoagulants; I25.2 Old myocardial infarction; Z79.82 Long term (current) use of aspirin; Z79.890 Hormone replacement therapy; Z79.899 Other long term (current) drug therapy; Z80.3 Family history of malignant neoplasm of breast; Z82.3 Family history of stroke; Z82.49 Family history of ischemic heart disease and other diseases of the circulatory system; Z85.828 Personal history of other malignant neoplasm of skin; Z87.891 Personal history of nicotine dependence; Z90.710 Acquired absence of both cervix and uterus; Z95.5 Presence of coronary angioplasty implant and graft
CPT/HCPCS: 36415; 71046; 80048; 80053; 80061; 81001; 83735; 84100; 84439; 84443; 84484; 85025; 85610; 85730; 87077; 87086; 87186; 93005; 93306; 94640; 96365; 96366; 96375; 96376; 99291

== ENCOUNTER → 2019-07-16 | Outpatient (CLI) | payer MEDICARE | END | disposition home or self-care (01) | LOC: LABWHC1 07:54 | PROVIDERS: ATTEND Internal Medicine Clinical Cardiac Electrophysiology | DX: U07.1 COVID-19 (principal) | CPT/HCPCS: 87635 ==

== ENCOUNTER 2019-07-18 06:01 | Day surgery (SDC) | payer MEDICARE ==
[2019-07-16 15:42] VITALS: BMI 40.8
[~2019-07-18 06:01] MED LIST changes: +LACTATED RINGERS 1,000 ML IV SCH; -LIDOCAINE 1% (PF) 10MG/ML VIAL SQ ONE; -MIDAZOLAM 2 MG/2 ML VIAL IV ONE; +ceFAZolin 1,000 MG in SODIUM CHLORIDE 0.9% IRRIGATIO 250 ML IRRIGATION ONE
[2019-07-18] MEDS ORDERED: fentaNYL (PF) 50 MCG/ML 2 ML AMP ONE (07:20)
[2019-07-18] MEDS ORDERED: SODIUM CHLORIDE 0.9% 100 ML BAG ONE (07:20)
[2019-07-18] MEDS ORDERED: MIDAZOLAM 2 MG/2 ML VIAL ONE (07:20)
[2019-07-18] MEDS ORDERED: ceFAZolin 1,000 MG VIAL ONE (07:20)
[2019-07-18] MEDS ORDERED: PROPOFOL 10 MG/ML 20 ML VIAL IV ONE (07:20)
[2019-07-18] MEDS ORDERED: IOPAMIDOL-250 50ML BTL IV ONE (07:40)
[2019-07-18] MEDS ORDERED: LIDOCAINE 1% INJ 10MG/ML (20 ML MDV) ONE (07:40)
[2019-07-18] MEDS ORDERED: SODIUM CHLORIDE 0.9% 500 ML 500 ML IV ONE (07:52)
[2019-07-18] MEDS ORDERED: LIDOCAINE 1% INJ 10MG/ML (20 ML MDV) SQ ONE ×3 (08:00→08:09)
[2019-07-18] MEDS: LIDOCAINE 1% INJ 10MG/ML (20 ML MDV) SQ ONE ×2 (08:09→09:56)
--- NOTE | 2019-07-18 10:04 | P.PCN ---
Preoperative Diagnosis: Left upper extremity venogram 50 mL IV dye injected in the left arm. Patent left subclavian and axillary venous systems as well as patent centrally a DO NOT RESUSCITATE minute and SVC level Plan Proceed with biventricular pacemaker implantation
--- NOTE | 2019-07-18 10:04 | P.PCN ---
Preoperative Diagnosis: Loop explant under sedation and local anesthesia. Patient was brought to the EP lab in a fasting state. Written informed consent was obtained prior to the procedure. The subcutaneous device was successfully explanted under local anesthesia. Preoperative antibiotics were administered. The wound was closed in layers and dressed per protocol. Result: Successful loop monitor explantation.
--- NOTE | 2019-07-18 10:06 | P.PRLE ---
RE: Harmony Arias Dear Nirali Reddy underwent biventricular pacemaker implantation for management of sick sinus syndrome and atrial fibrillation If in the future for A. fib is not controlled then in AV node ablation would still maintain LV RV synchrony because she has a His bundle lead implanted She will continue to follow with you and with Dr. Flynn as before Thank you for entrusting me with the care of the patient Warm regards Sincerely Ismael Trimble
[2019-07-18] MEDS: ACETAMINOPHEN TAB 325 MG TAB PO PRN ×2 (12:08→19:36)
--- NOTE | 2019-07-18 13:20 | XR ---
EXAMINATION TYPE: XR chest 1V portable DATE OF EXAM: 07/18/2019 HISTORY: Shortness of breath. COMPARISON: 07/01/2019 TECHNIQUE: Single view of the chest is submitted. FINDINGS: Demonstrated are scattered senescent parenchymal change. Left-sided dual-lead pacer with distal lead s within the right atrium and right ventricle respectively. No evidence for pneumothorax. There is no evidence for focal infiltrate. The heart is stable. Hilar and mediastinal structures are within normal limits. Degenerative changes are seen of the dorsal spine. IMPRESSION: 1. Chronic changes without evidence for acute pulmonary disease.
[2019-07-18] MEDS ORDERED: ACETAMINOPHEN IV (For NPO) 1,000 MG in EMPTY BAG 1 BAG IVPB ONE (14:00)
[2019-07-18] MEDS: NITROGLYCERIN SL TABS 0.4 MG TAB SUBLINGUAL ONE ×3 (14:57→15:07)
[2019-07-18] MEDS ORDERED: METOPROLOL TARTRATE 50 MG TAB PO STA (15:11)
[2019-07-18] MEDS: DILTIAZEM 125 MG in SODIUM CHLORIDE 0.9% 100 ML IV SCH (15:49)
--- NOTE | 2019-07-18 15:59 | PCN ---
PROCEDURE NOTE History of very symptomatic paroxysmal atrial fibrillation that has failed treatment. She was brought in for a Bi V 1 pacemaker implantation for maximization of further maximization of medications and likely AV node ablation in the future if she fails to respond to treatment. She has underlying sick sinus syndrome and bradycardia which precludes further maximization of medication. Patient was brought to the EP lab in a fasting state. Written informed consent was obtained prior to the procedure. The left shoulder area was prepped and draped as per protocol. 1% lidocaine used for local anesthesia. A 4 cm incision was made parallel to the deltopectoral groove, about 1.5 cm medial to it. The incision was carried down to the level of the pectoralis muscle. A subfascial pocket was made. Hemostasis was assured. The left axillary vein was accessed at 3 separate points under fluoroscopy and via appropriately-sized introducer sheath, 3 leads were positioned. The atrial lead was a anabel Medtronic lead model #4574, 53 cm in length and serial number [id number]. The P waves were 2.5 mV, pacing impedance 722 ohms, pacing threshold 0.75 V at 0.4 milliseconds, 10 V test negative. The RV lead was a anabel lead that was positioned in the RV apex is a Medtronic model #4074, 58 cm in length and serial number [id number]. This was positioned in the RV apex. R-waves were 31.6 mV, pacing impedance 912 ohms, pacing threshold 0.5 V at 0.4 milliseconds, 10 V test negative. The third lead was then positioned for physiologic septal pacing in the His bundle area. This was a Medtronic model ##3830, 69 cm in length and serial number [id number]. The pacing impedance is 513 ohms, pacing threshold 0.5 V at 1 millisecond, nonselective capture noted and nonselective capture of the his bundle noted. All 3 leads were secured to the underlying pectoralis muscle using 3 nonabsorbable sutures. The leads were connected to the generator and brackets Medtronic model number W1TR02 serial #[id number] Sasha CRTP. The leads and the generator were then placed in subfascial pocket. The wound was closed in 3 layers and dressed per protocol. RESULT: Successful biventricular pacemaker implantation for management of tachy-estrellita syndrome with sick sinus syndrome and paroxysmal atrial fibrillation with RVR. PLAN: Increase metoprolol to 50 mg twice daily. PROCEDURE: Left upper extremity venogram prior to starting the pacemaker implantation; 15 mL of dye were injected in the left upper vein and a venogram was performed. The cephalic, subclavian and axillary systems were venous systems were completely patent. PLAN: Proceed with above triple lead pacemaker implantation. MMYUSUF / KYRIEN: [id number] /
[2019-07-18] MEDS: BUDESONIDE 0.5 MG/2 ML NEBU INHALATION SCH (19:07)
[2019-07-18] MEDS ORDERED: METOPROLOL SUCCINATE (ER) 100 MG TAB.ER.24H PO SCH (21:00)
[2019-07-18] MEDS ORDERED: ATORVASTATIN 40 MG TAB PO SCH (21:00)
[2019-07-18] MEDS ORDERED: METOPROLOL TARTRATE 25 MG TAB PO SCH (21:00)
[2019-07-18] MEDS ORDERED: ALPRAZolam 0.25 MG TAB PO STA (22:38)
[2019-07-19 06:35] LABS: Anisocytosis Slight; Basophils % (A) 0 %; Eosinophils # (A) 0.3 k/uL (0-0.7); Eosinophils % (A) 3 %; HCT 37.7 % (34.0-46.0); HGB 11.8 gm/dL (11.4-16.0); Hypochromasia Slight; Lymphocytes # (A) 1.2 k/uL (1.0-4.8); Lymphocytes % (A) 14 %; MCH 25.9 pg (25.0-35.0); MCHC 31.3 g/dL (31.0-37.0); MCV 82.8 fL (80.0-100.0); Mean Platelet Volume 8.7; Monocytes # (A) 0.7 k/uL (0-1.0); Monocytes % (A) 8 %; Neutrophils # (A) 6.4 k/uL (1.3-7.7); Neutrophils % (A) 74 %; Platelet Count 167 k/uL (150-450); RBC 4.55 m/uL (3.80-5.40); RDW 16.6 % (11.5-15.5); WBC 8.7 k/uL (3.8-10.6)
[2019-07-19 06:36] LABS: Calcium 8.6 mg/dL (8.4-10.2); Potassium 4.5 mmol/L (3.5-5.1)
[2019-07-19] MEDS: ACETAMINOPHEN TAB 325 MG TAB PO PRN (08:05)
[2019-07-19] MEDS: DILTIAZEM 125 MG in SODIUM CHLORIDE 0.9% 100 ML IV SCH (08:11)
[2019-07-19] MEDS ORDERED: METOPROLOL SUCCINATE (ER) 100 MG TAB.ER.24H PO SCH (08:15)
[2019-07-19] MEDS: BUDESONIDE 0.5 MG/2 ML NEBU INHALATION SCH (08:42)
[2019-07-19] MEDS ORDERED: FUROSEMIDE 40 MG TAB PO SCH (09:00)
[2019-07-19] MEDS ORDERED: RIVAROXABAN 20 MG TAB PO SCH (09:00)
[2019-07-19] MEDS ORDERED: ALLOPURINOL 100 MG TAB PO SCH (09:00)
[2019-07-19] MEDS ORDERED: ASPIRIN 81 MG PO SCH (09:00)
[2019-07-19 11:31] VITALS: BP 117/74; PULSE 116; RESP 16; TEMP 97.6
--- NOTE | 2019-07-19 12:24 | P.PN ---
Subjective Progress Note Date: 07/19/19 Discharge note This is a 73-year-old female who follows with Dr. Flynn in the office, she has a known history of paroxysmal atrial fibrillation, prior history of coronary artery disease with previous PCI, hypertension, hyperlipidemia, nondiabetic, hypothyroidism. She also has a history of prior ablation for atrial fibrillation. The patient was brought to the hospital yesterday to undergo by V pacemaker implantation for maximization of further medications for her atrial fibrillation, she will also likely need an AV node ablation in the future if she fails to respond to treatment. She has underlying sick sinus syndrome and bradycardia which precludes further maximization of medication w ithout it. Her device was interrogated this morning and is functioning appropriately. Chest x-ray does not show any evidence of a pneumothorax. Dr. Trimble was going to discharge the patient home, after examination she went back into atrial fibrillation with a rapid ventricular response and developed some chest discomfort. He gave the patient 100 mg of Toprol at that time, her lungs were clear, he stopped the Cardizem. The intention is for the patient still to be discharged home today. Blood pressure this morning 116/70 with a heart rate in the 100, 94% on room air. White blood cell count 8.7, hemoglobin 11.8, platelet count 167. Sodium 136, potassium 4.5, BUN 28, creatinine 1.0. Objective - Vital Signs Vital signs: Vital Signs Temp 97.6 F 07/19/19 11:20 Pulse 116 H 07/19/19 11:20 Resp 16 07/19/19 11:20 BP 117/74 07/19/19 11:20 Pulse Ox 94 L 07/19/19 07:30 Intake & Output 07/18/19 07/19/19 07/19/19 18:59 06:59 18:59 Intake Total 540 10 481.833 Balance 540 10 481.833 Weight 95.8 kg Intake: IV 60 10 10 Invasive Line 1 10 Invasive Line 2 10 10 Intake, IV Titration 81.833 Amount Diltiazem 125 mg In 81.833 Sodium Chloride 0.9% 100 ml @ 5 MG/HR 5 mls/hr IV .Q24H MILAN Rx#:[id number] Oral 480 390 Other: # Voids 1 2 - Exam PHYSICAL EXAMINATION: GENERAL: 73-year-old female in no acute distress at the time of examination HEENT: Head is atraumatic, normocephalic. Pupils equal, round. Sclera anicteric. Conjunctiva are clear. Mucous membranes of the mouth are moist. Neck is supple. There is no elevated jugular venous pressure. No carotid br uit is heard. HEART EXAMINATION: Heart S1 and S2 irregularly irregular CHEST EXAMINATION: Lungs are clear to auscultation and precussion. Positive chest wall soreness . Site of device implantation, dressing is dry and intact ABDOMEN: Soft, nontender. Bowel sounds are heard. No organomegaly noted. EXTREMITIES: 2+ peripheral pulses with no evidence of peripheral edema and no calf tenderness noted. NEUROLOGIC patient is awake, alert and oriented 3 . - Labs CBC & Chem 7: 07/19/19 05:58 07/19/19 05:58 Labs: Abnormal Lab Results - Last 24 Hours (Table) 07/19/19 07/19/19 Range/Units 05:58 05:58 RDW 16.6 H (11.5-15.5) % Sodium 136 L (137-145) mmol/L Chloride 109 H (98-107) mmol/L BUN 28 H (7-17) mg/dL Assessment and Plan Plan: Assessment and plan #1 status post implantation of a bi-V pacemaker for maximization of medications for her atrial fibrillation #2 atrial fibrillation with rapid ventricular response, patient has history of p aroxysmal A. fib #3 underlying sick sinus syndrome and bradycardia #4 coronary artery disease history with prior PCI #5 hypertension #6 hyperlipidemia #7 hypothyroidism Plan Patient has just been given 100 mg of Toprol, she should be able to be discharged home today. Follow-up appointment in the office with Dr. Currie and in the device clinic with Dr. Trimble. Patient may require AV node ablation as an outpatient. Discharge medications include Ventolin inhaler, Atrovent, Xarelto 20 mg daily, Lipitor 40 mg daily, metoprolol sucinate 100 mg daily, aspirin 81 mg daily, Lasix 40 mg daily. DNP note has been reviewed, I agree with a documented findings and plan of care. Patient was seen and examined.
--- NOTE | 2019-07-19 14:43 | P.DS ---
Providers Attending physician: Ismael Trimble Discharge summary Please see progress note from today Patient is stable. Device functioning normally Chest x-ray is normal X-ray done A. fib rates are about 100 120 beats a minute line metoprolol succinate 100 mg by mouth daily initiated yesterday Continue anticoagulation and metoprolol him follow up in the device clinic in 5 days Please see full progress note for details and examination Primary care physician: Nirali Elizabeth Plan - Discharge Summary Discharge Rx Participant: No New Discharge Prescriptions: New RX: Metoprolol Succinate (ER) [Toprol XL] 100 mg PO DAILY #90 tab RX: Metoprolol Succinate (ER) [Toprol XL] 100 mg PO DAILY #30 tab.er.24h Continue RX: Albuterol Sulfate [Ventolin HFA] 2 puff INHALATION RT-QID PRN PRN Reason: Shortness Of Breath RX: Vit C/E/Zn/Coppr/Lutein/Zeaxan [Preservision Areds 2 Softgel] 1 cap PO BID RX: Atorvastatin [Lipitor] 40 mg PO HS #30 tab RX: Magnesium Oxide [Mag-Ox] 250 mg PO DAILY RX: Cholecalciferol [Vitamin D3 (25 Mcg = 1000 Iu)] 1,000 unit PO DAILY RX: guaiFENesin [Mucinex] 400 mg PO BID RX: Rivaroxaban [Xarelto] 20 mg PO DAILY RX: Allopurinol [Zyloprim] 100 mg PO DAILY RX: Levothyroxine Sodium [Synthroid] 75 mcg PO DAILY@0500 RX: Potassium Chloride ER [K-Dur 20] 20 meq PO DAILY RX: Furosemide [Lasix] 40 mg PO DAILY #30 tablet RX: Ipratropium Nebulized [Atrovent Nebulized 0.2 MG/ML] 2.5 ml INHALATION RT-TID RX: Budesonide [Pulmicort] 1 applic INHALATION RT-BID RX: Fluticasone/Umeclidin/Vilanter [Trelegy Ellipta 100-62.5-25] 1 puff INHALATION DAILY RX: Aspirin 81 mg PO DAILY #30 chew RX: Nitroglycerin Sl Tabs [Nitrostat] 0.4 mg SUBLINGUAL Q5M PRN #20 tab PRN Reason: Chest Pain RX: Acetaminophen [Tylenol Extra Strength] 500 - 1,000 mg PO DIRECTED PRN PRN Reason: Pain Discontinued RX: Metoprolol Tartrate [Lopressor] 25 mg PO BID #60 tab Discharge Medication List RX: Albuterol Sulfate [Ventolin HFA] 2 puff INHALATION RT-QID PRN 08/11/13 [History] RX: Vit C/E/Zn/Coppr/Lutein/Zeaxan [Preservision Areds 2 Softgel] 1 cap PO BID 03/02/15 [History] RX: Atorvastatin [Lipitor] 40 mg PO HS #30 tab 03/04/15 [Rx] RX: Cholecalciferol [Vitamin D3 (25 Mcg = 1000 Iu)] 1,000 unit PO DAILY 08/30/17 [History] RX: Magnesium Oxide [Mag-Ox] 250 mg PO DAILY 08/30/17 [History] RX: guaiFENesin [Mucinex] 400 mg PO BID 08/30/17 [History] RX: Rivaroxaban [Xarelto] 20 mg PO DAILY 09/11/17 [History] RX: Allopurinol [Zyloprim] 100 mg PO DAILY 10/22/18 [History] RX: Levothyroxine Sodium [Synthroid] 75 mcg PO DAILY@0500 10/22/18 [History] RX: Potassium Chloride ER [K-Dur 20] 20 meq PO DAILY 10/22/18 [History] RX: Furosemide [Lasix] 40 mg PO DAILY #30 tablet 10/27/18 [Rx] RX: Budesonide [Pulmicort] 1 applic INHALATION RT-BID 07/01/19 [History] RX: Fluticasone/Umeclidin/Vilanter [Trelegy Ellipta 100-62.5-25] 1 puff INHALATION DAILY 07/01/19 [History] RX: Ipratropium Nebulized [Atrovent Nebulized 0.2 MG/ML] 2.5 ml INHALATION RT- TID 07/01/19 [History] RX: Aspirin 81 mg PO DAILY #30 chew 07/04/19 [Rx] RX: Nitroglycerin Sl Tabs [Nitrostat] 0.4 mg SUBLINGUAL Q5M PRN #20 tab 07/04/19 [Rx] RX: Acetaminophen [Tylenol Extra Strength] 500 - 1,000 mg PO DIRECTED PRN 07/16/19 [History] RX: Metoprolol Succinate (ER) [Toprol XL] 100 mg PO DAILY #90 tab 07/18/19 [Rx] RX: Metoprolol Succinate (ER) [Toprol XL] 100 mg PO DAILY #30 tab.er.24h 07/19/19 [Rx] Follow up Appointment(s)/Referral(s): Rajesh Flynn MD [STAFF PHYSICIAN] - 1 Week (APPOINTMENT MADE ON MONDAY, July @ 2:00PM TO SEE THE DEVICE CLINIC AND DR. FLYNN ) Patient Instructions/Handouts: A-fib (Atrial Fibrillation) (ED), Moderate Sedation (ED), Pacemaker (DC) Activity/Diet/Wound Care/Special Instructions: PATIENT EDUCATION MATERIAL Instructions following a heart rhythm device implant. 1. Keep dressing DRY for 5 DAYS. You may cover the area with Saran or Cling Wrap, prior to a shower. 2. The dressing will be removed in the Device Clinic at [facility]. Absorbable sutures were used to close the wound. 3. Avoid raising the left arm above the shoulder level. 4 week restriction 4. Avoid arm movements, like backscratching, rubbing the head, or pulling on a cord. 4 weeks restriction 5. Gentle range of motion movements of the shoulder, closest to the incision should be performed to avoid a frozen shoulder. (Pendulum exercises of the shoulder) 6. The opposite arm may be used freely. 7. Avoid driving for 7 days. 8. Avoid activities such as golfing, swimming, weed whacking, lifting more than 10 pounds weight, bowling, gymnastics and weight training/lifting. (6 weeks restriction) 9. Activities such as wood chopping with an axe, pull-ups in the gymnasium, power lifting, arc-welding, being close to home induction cooktops will always be a problem. 10. Arm sling is only a reminder not to raise the arm above the head. You do not need to keep the arm completely immobilized. Your free to move the arm and use it and for normal activities. In case of any problems, please call [facility], [place], @ [phone], Attention: Device Clinic Device clinic follow-up in [address] 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
== END 2019-07-19 13:01 | disposition home or self-care (01) ==
LOC: CATHEP 06:01 → 3SCARD 09:35 → CATHEP 07-19 13:01
PROVIDERS: ATTEND Internal Medicine Clinical Cardiac Electrophysiology
DX: I49.5 Sick sinus syndrome (principal); I48.19 Other persistent atrial fibrillation; I25.10 Atherosclerotic heart disease of native coronary artery without angina pectoris; E03.9 Hypothyroidism, unspecified; I10 Essential (primary) hypertension; E78.5 Hyperlipidemia, unspecified; F17.210 Nicotine dependence, cigarettes, uncomplicated; Z79.01 Long term (current) use of anticoagulants; Z79.82 Long term (current) use of aspirin; Z79.890 Hormone replacement therapy; Z79.51 Long term (current) use of inhaled steroids; Z79.899 Other long term (current) drug therapy; Z88.5 Allergy status to narcotic agent; Z86.718 Personal history of other venous thrombosis and embolism
CPT/HCPCS: 94640 ×2; 93005; 33225; 33208; 33286; 80048; 85025; 71045; C1769 ×3; C1892; C1898 ×2; C2621; J2250; J0690 ×3; J2001; J3010; J2704; Q9966

== ENCOUNTER 2019-08-08 10:32 | Inpatient (IN) | payer MEDICARE ==
[2019-08-08] MEDS ORDERED: methylPREDNISolone SOD SUCCI 125 MG/2 ML VIAL IV STA (10:41)
[2019-08-08] MEDS ORDERED: IPRATROPIUM 0.5 MG/2.5 ML NEBU INHALATION STA (10:41)
[2019-08-08] MEDS ORDERED: ALBUTEROL NEBULIZED 2.5 MG/3 ML INHALATION STA (10:41)
--- NOTE | 2019-08-08 10:44 | ED ---
General Adult HPI - General Stated complaint: Dyspnea Time Seen by Provider: 08/08/19 10:34 Source: patient, EMS, RN notes reviewed, old records reviewed - History of Present Illness Initial comments: 74-year-old female with COPD presenting for evaluation of dyspnea, hypoxia. Patient was at her primary care office noted to have an oxygen saturation the low 80s on supplemental oxygen. She states she's had worsening cough and dyspnea over the past several days. Approximately 2 weeks ago she had a pacemaker placed. She denies any central chest pain. She denies weight gain or lower extremity edema. She denies fever. She uses her oxygen at home typically only at night she follows regularly with pulmonology. - Related Data Home Medications Medication Instructions Recorded Confirmed Albuterol Sulfate [Ventolin HFA] 2 puff INHALATION RT-QID PRN 08/11/13 07/18/19 Vit C/E/Zn/Coppr/Lutein/Zeaxan 1 cap PO BID 03/02/15 07/18/19 [Preservision Areds 2 Softgel] Cholecalciferol [Vitamin D3 (25 1,000 unit PO DAILY 08/30/17 07/18/19 Mcg = 1000 Iu)] Magnesium Oxide [Mag-Ox] 250 mg PO DAILY 08/30/17 07/18/19 guaiFENesin [Mucinex] 400 mg PO BID 08/30/17 07/18/19 Rivaroxaban [Xarelto] 20 mg PO DAILY 09/11/17 07/18/19 Allopurinol [Zyloprim] 100 mg PO DAILY 10/22/18 07/18/19 Levothyroxine Sodium [Synthroid] 75 mcg PO DAILY@0500 10/22/18 07/18/19 Potassium Chloride ER [K-Dur 20] 20 meq PO DAILY 10/22/18 07/18/19 Budesonide [Pulmicort] 1 applic INHALATION RT-BID 07/01/19 07/18/19 Fluticasone/Umeclidin/Vilanter 1 puff INHALATION DAILY 07/01/19 07/18/19 [Trelegy Ellipta 100-62.5-25] Ipratropium Nebulized [Atrovent 2.5 ml INHALATION RT-TID 07/01/19 07/16/19 Nebulized 0.2 MG/ML] Acetaminophen [Tylenol Extra 500 - 1,000 mg PO DIRECTED PRN 07/16/19 07/18/19 Strength] Previous Rx's Medication Instructions Recorded Atorvastatin [Lipitor] 40 mg PO HS #30 tab 03/04/15 Furosemide [Lasix] 40 mg PO DAILY #30 tablet 10/27/18 Aspirin 81 mg PO DAILY #30 chew 07/04/19 Nitroglycerin Sl Tabs [Nitrostat] 0.4 mg SUBLINGUAL Q5M PRN #20 tab 07/04/19 Metoprolol Succinate (ER) [Toprol 100 mg PO DAILY #90 tab 07/18/19 XL] Metoprolol Succinate (ER) [Toprol 100 mg PO DAILY #30 tab.er.24h 07/19/19 XL] Allergies Allergy/AdvReac Type Severity Reaction Status Date / Time codeine Allergy Itching Verified 07/16/19 15:08 Review of Systems ROS Statement: Those systems with pertinent positive or pertinent negative responses have been documented in the HPI. ROS Other: All systems not noted in ROS Statement are negative. Past Medical History Past Medical History: Atrial Fibrillation, Asthma, Coronary Artery Disease (CAD), Cancer, COPD, Eye Disorder, Hearing Disorder / Deafness, Myocardial Infarction (VT), Osteoarthritis (OA), Pneumonia, Thyroid Disorder Additional Past Medical History / Comment(s): See Dr Trimble's H&P, Gout, hiatal hernia, Macular Degeneration, Skin Cancer, degenerative disc disease, osteoporosis. UTI 07/01/19. Last Myocardial Infarction Date:: 2011 History of Any Multi-Drug Resistant Organisms: None Reported Past Surgical History: Ablation, Cholecystectomy, Heart Catheterization With Stent, Hysterectomy, Orthopedic Surgery, Tonsillectomy Additional Past Surgical History / Comment(s): Right shoulder, left wrist. Thyroid Nodule removed, Cataracts, LOOP RECORDER-11/23/17; CHRIO ABLATION 03/08/18 WITH CARDIOVERSION Past Anesthesia/Blood Transfusion Reactions: No Reported Reaction Date of Last Stent Placement:: 2011 Type of Cardiac Device: Loop Device Placement Date:: 11/23/17 Smoking Status: Former smoker - Past Family History Mother Family Medical History: Cancer, Congestive Heart Failure (CHF), Myocardial Infarction (VT), Pneumonia, Pulmonary Embolus Additional Family Medical History / Comment(s): breast CA Father Family Medical History: CVA/TIA, Myocardial Infarction (VT) General Exam General appearance: alert, in no apparent distress Head exam: Present: atraumatic, normocephalic Eye exam: Present: normal appearance, PERRL Neck exam: Present: normal inspection. Absent: tenderness, meningismus Respiratory exam: Present: respiratory distress, wheezes, decreased breath sounds Cardiovascular Exam: Present: regular rate, normal rhythm GI/Abdominal exam: Present: soft. Absent: distended, tenderness Extremities exam: Present: normal inspection, normal capillary refill. Absent: pedal edema, calf tenderness Neurological exam: Present: alert Psychiatric exam: Present: normal affect, normal mood Skin exam: Present: warm, dry, intact. Absent: cyanosis, diaphoretic Course Vital Signs 08/08/19 08/08/19 10:37 10:46 Temperature 98 F Pulse Rate 110 H Respiratory 20 20 Rate Blood Pressure 147/78 O2 Sat by Pulse 97 Oximetry EKG Findings - EKG Comments: EKG Findings:: Dual paced rhythm, rate of 63, GA interval 186, QRS duration 112, QTC 468, no ST segment elevation. Medical Decision Making - Medical Decision Making 74-year-old female presenting for evaluation of dyspnea and hypoxia. Chest x- ray showing mild pulmonary vascular congestion. Workup reveals normal CBC, n ormal electrolytes, elevated BNP, negative troponin. I suspect her dyspnea is related to both COPD as well as congestive heart failure. Case is discussed with Dr. Yoon, will admit. - Lab Data Result diagrams: 08/08/19 10:50 08/08/19 10:50 Lab Results 08/08/19 08/08/19 08/08/19 Range/Units 10:50 10:50 10:50 WBC 7.8 (3.8-10.6) k/uL RBC 4.67 (3.80-5.40) m/uL Hgb 12.2 (11.4-16.0) gm/dL Hct 38.5 (34.0-46.0) % MCV 82.4 (80.0-100.0) fL MCH 26.1 (25.0-35.0) pg MCHC 31.6 (31.0-37.0) g/dL RDW 16.8 H (11.5-15.5) % Plt Count 240 (150-450) k/uL Neutrophils % 67 % Lymphocytes % 20 % Monocytes % 8 % Eosinophils % 3 % Basophils % 1 % Neutrophils # 5.2 (1.3-7.7) k/uL Lymphocytes # 1.5 (1.0-4.8) k/uL Monocytes # 0.6 (0-1.0) k/uL Eosinophils # 0.2 (0-0.7) k/uL Basophils # 0.1 (0-0.2) k/uL Hypochromasia Marked Anisocytosis Slight PT 14.5 H (9.0-12.0) sec INR 1.5 H (<1.2) APTT 33.5 H (22.0-30.0) sec Sodium 138 (137-145) mmol/L Potassium 4.1 (3.5-5.1) mmol/L Chloride 103 (98-107) mmol/L Carbon Dioxide 26 (22-30) mmol/L Anion Gap 9 mmol/L BUN 31 H (7-17) mg/dL Creatinine 1.16 H (0.52-1.04) mg/dL Est GFR (CKD-EPI)AfAm 54 (>60 ml/min/1.73 sqM) Est GFR (CKD-EPI)NonAf 47 (>60 ml/min/1.73 sqM) Glucose 101 H (74-99) mg/dL Plasma Lactic Acid Malik (0.7-2.0) mmol/L Calcium 9.4 (8.4-10.2) mg/dL Magnesium 2.1 (1.6-2.3) mg/dL Total Bilirubin 1.0 (0.2-1.3) mg/dL AST 36 (14-36) U/L ALT 15 (4-34) U/L Alkaline Phosphatase 100 (38-126) U/L Troponin I (0.000-0.034) ng/mL NT-Pro-B Natriuret Pep pg/mL Total Protein 7.7 (6.3-8.2) g/dL Albumin 4.4 (3.5-5.0) g/dL 08/08/19 08/08/19 08/08/19 Range/Units 10:50 10:50 10:50 WBC (3.8-10.6) k/uL RBC (3.80-5.40) m/uL Hgb (11.4-16.0) gm/dL Hct (34.0-46.0) % MCV (80.0-100.0) fL MCH (25.0-35.0) pg MCHC (31.0-37.0) g/dL RDW (11.5-15.5) % Plt Count (150-450) k/uL Neutrophils % % Lymphocytes % % Monocytes % % Eosinophils % % Basophils % % Neutrophils # (1.3-7.7) k/uL Lymphocytes # (1.0-4.8) k/uL Monocytes # (0-1.0) k/uL Eosinophils # (0-0.7) k/uL Basophils # (0-0.2) k/uL Hypochromasia Anisocytosis PT (9.0-12.0) sec INR (<1.2) APTT (22.0-30.0) sec Sodium (137-145) mmol/L Potassium (3.5-5.1) mmol/L Chloride (98-107) mmol/L Carbon Dioxide (22-30) mmol/L Anion Gap mmol/L BUN (7-17) mg/dL Creatinine (0.52-1.04) mg/dL Est GFR (CKD-EPI)AfAm (>60 ml/min/1.73 sqM) Est GFR (CKD-EPI)NonAf (>60 ml/min/1.73 sqM) Glucose (74-99) mg/dL Plasma Lactic Acid Malik 1.1 (0.7-2.0) mmol/L Calcium (8.4-10.2) mg/dL Magnesium (1.6-2.3) mg/dL Total Bilirubin (0.2-1.3) mg/dL AST (14-36) U/L ALT (4-34) U/L Alkaline Phosphatase (38-126) U/L Troponin I <0.012 (0.000-0.034) ng/mL NT-Pro-B Natriuret Pep 2690 pg/mL Total Protein (6.3-8.2) g/dL Albumin (3.5-5.0) g/dL Critical Care Time Critical Care Time: Yes Total Critical Care Time: 35 Disposition Clinical Impression: Acute exacerbation of chronic obstructive airways disease, Congestive heart failure (CHF) Disposition: ADMITTED IP TO THIS HOSP Condition: Stable Is patient prescribed a controlled substance at d/c from ED?: No Referrals: Nirali Elizabeth MD [Primary Care Provider] - 1-2 days Decision to Admit Reason: Admit from EC Decision Date: 08/08/19 Decision Time: 12:42
[2019-08-08 11:48] LABS: Anisocytosis Slight; Basophils # (A) 0.1 k/uL (0-0.2); Basophils % (A) 1 %; Eosinophils # (A) 0.2 k/uL (0-0.7); Eosinophils % (A) 3 %; HCT 38.5 % (34.0-46.0); HGB 12.2 gm/dL (11.4-16.0); Hypochromasia Marked; Lymphocytes # (A) 1.5 k/uL (1.0-4.8); Lymphocytes % (A) 20 %; MCH 26.1 pg (25.0-35.0); MCHC 31.6 g/dL (31.0-37.0); MCV 82.4 fL (80.0-100.0); Mean Platelet Volume 7.8; Monocytes # (A) 0.6 k/uL (0-1.0); Monocytes % (A) 8 %; Neutrophils # (A) 5.2 k/uL (1.3-7.7); Neutrophils % (A) 67 %; Platelet Count 240 k/uL (150-450); RBC 4.67 m/uL (3.80-5.40); RDW 16.8 % (11.5-15.5); WBC 7.8 k/uL (3.8-10.6)
[2019-08-08 11:49] LABS: INR 1.5 (<1.2); Partial Thromboplastin Time 33.5 sec (22.0-30.0); Prothrombin Time 14.5 sec (9.0-12.0)
--- NOTE | 2019-08-08 11:50 | XR ---
EXAMINATION TYPE: XR chest 2V DATE OF EXAM: 08/08/2019 COMPARISON: 07/18/2019 HISTORY: Difficulty breathing TECHNIQUE: Frontal and lateral views of the chest are obtained. FINDINGS: Cardiomediastinal silhouette is enlarged as seen on the prior with moderate pulmonary vasc ular congestion and improving left basilar airspace disease with trace left pleural effusion. Multile ad left-sided cardiac device is seen. There is diffuse osseous demineralization. IMPRESSION: Improving left basilar opacity. Redemonstration of an enlarged cardiomediastinal silhoue tte and moderate pulmonary vascular congestion.
[2019-08-08 11:52] LABS: Albumin 4.4 g/dL (3.5-5.0); Calcium 9.4 mg/dL (8.4-10.2); Magnesium 2.1 mg/dL (1.6-2.3); Potassium 4.1 mmol/L (3.5-5.1); Total Protein 7.7 g/dL (6.3-8.2)
[2019-08-08] MEDS ORDERED: IPRATROPIUM-ALBUTEROL 3 ML NEB INHALATION PRN (12:40)
[2019-08-08] MEDS ORDERED: FUROSEMIDE 10 MG/ML 4 ML VIAL IV STA (12:41)
[2019-08-08] MEDS ORDERED: ACETAMINOPHEN TAB 500 MG TAB PO STA (13:26)
[2019-08-08] MEDS ORDERED: NITROGLYCERIN SL TABS 0.4 MG TAB SUBLINGUAL PRN (14:43)
--- NOTE | 2019-08-08 14:55 | P.HPIM ---
History of Present Illness She did very pleasant 74-year-old female with known history of COPD came in with the complaints of shortness of breath patient quit smoking years ago. Patient was hypoxic with oxygen saturation as low as 80s. Patient is comparing of cough without any sputum production patient denied any orthopnea proximal nocturnal dyspnea chest x-ray showed mild pulmonary edema. Patient doesn't have any significant JVD on exam though patient doesn't have any pedal edema. Patient denied any fever chills, COVID19 testing is pending. Patient is in a dose of IV Lasix because of pulmonary edema on the chest x-ray. Patient does have history of atrial fibrillation on anticoagulations patient does have a pacemaker and is on high-dose of beta justin for atrial fibrillation and sick sinus syndrome. Review of Systems REVIEW OF SYSTEMS: CONSTITUTIONAL: No fever, no malaise, no fatigue. HEENT: No recent visual problems or hearing problems. Denied any sore throat. CARDIOVASCULAR: No chest pain, orthopnea, PND, no palpitations, no syncope. PULMONARY: As mentioned in HPI GASTROINTESTINAL: No diarrhea, no nausea, no vomiting, no abdominal pain. NEUROLOGICAL: No headaches, no weakness, no numbness. HEMATOLOGICAL: Denies any bleeding or petechiae. GENITOURINARY: Denies any burning micturition, frequency, or urgency. MUSCULOSKELETAL/RHEUMATOLOGICAL: Denies any joint pain, swelling, or any muscle pain. ENDOCRINE: Denies any polyuria or polydipsia. The rest of the 14-point review of systems is negative. Past Medical History Past Medical History: Atrial Fibrillation, Asthma, Coronary Artery Disease (CAD), Cancer, COPD, Eye Disorder, Hearing Disorder / Deafness, Myocardial Infarction ([place]), Osteoarthritis (OA), Pneumonia, Thyroid Disorder Additional Past Medical History / Comment(s): See Dr Trimble's H&P, Gout, hiatal hernia, Macular Degeneration, Skin Cancer, degenerative disc disease, osteoporosis. UTI 07/01/19. Last Myocardial Infarction Date:: 2011 History of Any Multi-Drug Resistant Organisms: None Reported Past Surgical History: Ablation, Cholecystectomy, Heart Catheterization With Stent, Hysterectomy, Orthopedic Surgery, Tonsillectomy Additional Past Surgical History / Comment(s): Right shoulder, left wrist. Thy roid Nodule removed, Cataracts, LOOP RECORDER-11/23/17; CHRIO ABLATION 03/08/18 WITH CARDIOVERSION Past Anesthesia/Blood Transfusion Reactions: No Reported Reaction Date of Last Stent Placement:: 2011 Type of Cardiac Device: Loop Device Placement Date:: 11/23/17 Smoking Status: Former smoker - Past Family History Mother Family Medical History: Cancer, Congestive Heart Failure (CHF), Myocardial Infarction ([place]), Pneumonia, Pulmonary Embolus Additional Family Medical History / Comment(s): breast CA Father Family Medical History: CVA/TIA, Myocardial Infarction ([place]) Medications and Allergies Home Medications Medication Instructions Recorded Confirmed Type Albuterol Sulfate [Ventolin HFA] 2 puff INHALATION RT-QID PRN 08/11/13 07/18/19 History Vit C/E/Zn/Coppr/Lutein/Zeaxan 1 cap PO BID 03/02/15 07/18/19 History [Preservision Areds 2 Softgel] Atorvastatin [Lipitor] 40 mg PO HS #30 tab 03/04/15 07/18/19 Rx Cholecalciferol [Vitamin D3 (25 1,000 unit PO DAILY 08/30/17 07/18/19 History Mcg = 1000 Iu)] Magnesium Oxide [Mag-Ox] 250 mg PO DAILY 08/30/17 07/18/19 History guaiFENesin [Mucinex] 400 mg PO BID 08/30/17 07/18/19 History Rivaroxaban [Xarelto] 20 mg PO DAILY 09/11/17 07/18/19 History Allopurinol [Zyloprim] 100 mg PO DAILY 10/22/18 07/18/19 History Levothyroxine Sodium [Synthroid] 75 mcg PO DAILY@0500 10/22/18 07/18/19 History Potassium Chloride ER [K-Dur 20] 20 meq PO DAILY 10/22/18 07/18/19 History Furosemide [Lasix] 40 mg PO DAILY #30 tablet 10/27/18 07/18/19 Rx Budesonide [Pulmicort] 1 applic INHALATION RT-BID 07/01/19 07/18/19 History Fluticasone/Umeclidin/Vilanter 1 puff INHALATION DAILY 07/01/19 07/18/19 History [Trelegy Ellipta 100-62.5-25] Ipratropium Nebulized [Atrovent 2.5 ml INHALATION RT-TID 07/01/19 07/16/19 History Nebulized 0.2 MG/ML] Aspirin 81 mg PO DAILY #30 chew 07/04/19 07/18/19 Rx Nitroglycerin Sl Tabs [Nitrostat] 0.4 mg SUBLINGUAL Q5M PRN #20 tab 07/04/19 07/18/19 Rx Acetaminophen [Tylenol Extra 500 - 1,000 mg PO DIRECTED PRN 07/16/19 07/18/19 History Strength] Metoprolol Succinate (ER) [Toprol 100 mg PO DAILY #90 tab 07/18/19 Rx XL] Metoprolol Succinate (ER) [Toprol 100 mg PO DAILY #30 tab.er.24h 07/19/19 Rx XL] Allergies Allergy/AdvReac Type Severity Reaction Status Date / Time codeine Allergy Itching Verified 07/16/19 15:08 Physical Exam Vitals: Vital Signs Temp Pulse Resp BP Pulse Ox 08/08/19 13:08 98 18 129/58 99 08/08/19 12:55 70 08/08/19 12:41 68 08/08/19 10:46 20 08/08/19 10:37 98 F 110 H 20 147/78 97 Intake and Output 08/07/19 08/08/19 08/08/19 22:59 06:59 14:59 Other: Weight 94.801 kg PHYSICAL EXAMINATION: GENERAL: The patient is alert and oriented x3, not in any acute distress. Well d eveloped, well nourished. HEENT: Pupils are round and equally reacting to light. EOMI. No scleral icterus. No conjunctival pallor. Normocephalic, atraumatic. No pharyngeal erythema. No thyromegaly. CARDIOVASCULAR: S1 and S2 present. No murmurs, rubs, or gallops. PULMONARY: Minimal expiratory wheezing no crackles were appreciated no JVD. ABDOMEN: Soft, nontender, nondistended, normoactive bowel sounds. No palpable organomegaly. MUSCULOSKELETAL: No joint swelling or deformity. EXTREMITIES: No cyanosis, clubbing, or pedal edema. NEUROLOGICAL: Gross neurological examination did not reveal any focal deficits. SKIN: No rashes. Results CBC & Chem 7: 08/08/19 10:50 08/08/19 10:50 Labs: Abnormal Lab Results - Last 24 Hours (Table) 05/28/20 05/28/20 05/28/20 Range/Units 10:50 10:50 10:50 RDW 16.8 H (11.5-15.5) % PT 14.5 H (9.0-12.0) sec INR 1.5 H (<1.2) APTT 33.5 H (22.0-30.0) sec BUN 31 H (7-17) mg/dL Creatinine 1.16 H (0.52-1.04) mg/dL Glucose 101 H (74-99) mg/dL Assessment and Plan Plan: -Acute hypoxic and hypercapnic respiratory failure: Secondary to COPD exacerbation there is a competent of the CHF that contributed to her shortness of breath as well. Continue with the systemic steroids inhalational treatments. Patient is already feeling better patient probably can be discharged tomorrow. -rule out COVID 19 -Possible chronic diastolic dysfunction with mild acute exacerbation patient was given a dose of IV Lasix and the patient will continued on home dose of oral Lasix. -Acute renal failure probably secondary to prerenal azotemia from heart failure. -Atrial fibrillation and sick sinus syndrome: Patient will be continued on anticoagulation, continue with beta justin. -Coronary artery disease -Hypothyroidism -DVT prophylaxis: Patient is already on anti-correlation patient will need GI prophylaxis
[2019-08-08] MEDS: IPRATROPIUM-ALBUTEROL 3 ML NEB INHALATION SCH ×2 (16:02→20:11)
[2019-08-08] MEDS ORDERED: methylPREDNISolone SOD SUCCI 125 MG/2 ML VIAL IV SCH (18:00)
[2019-08-08] MEDS ORDERED: IPRATROPIUM 0.5 MG/2.5 ML NEBU INHALATION SCH (20:00)
[2019-08-08] MEDS: BUDESONIDE 0.5 MG/2 ML NEBU INHALATION SCH (20:11)
[2019-08-08] MEDS: methylPREDNISolone SOD SUCCI 40 MG/ML 1 ML VIAL IV SCH (20:38)
[2019-08-08] MEDS: ATORVASTATIN 40 MG TAB PO SCH (20:38)
[2019-08-08] MEDS: FAMOTIDINE 20 MG TAB PO SCH (20:38)
[2019-08-08] MEDS: guaiFENesin 600 MG TABLET.ER PO SCH (20:38)
[2019-08-08] MEDS: ACETAMINOPHEN TAB 500 MG TAB PO PRN (21:21)
[2019-08-09] MEDS: LEVOTHYROXINE 75 MCG TAB PO SCH (05:29)
[2019-08-09] MEDS: METOPROLOL SUCCINATE (ER) 100 MG TAB.ER.24H PO SCH (07:22)
[2019-08-09] MEDS: ASPIRIN 81 MG PO SCH (07:23)
[2019-08-09] MEDS: guaiFENesin 600 MG TABLET.ER PO SCH ×2 (07:23→21:01)
[2019-08-09] MEDS: ALLOPURINOL 100 MG TAB PO SCH (07:23)
[2019-08-09] MEDS: RIVAROXABAN 20 MG TAB PO SCH (07:23)
[2019-08-09] MEDS: methylPREDNISolone SOD SUCCI 40 MG/ML 1 ML VIAL IV SCH ×2 (07:23→21:02)
[2019-08-09] MEDS: FAMOTIDINE 20 MG TAB PO SCH (07:23)
[2019-08-09] MEDS: BUDESONIDE 0.5 MG/2 ML NEBU INHALATION SCH ×2 (07:48→19:47)
[2019-08-09] MEDS: IPRATROPIUM-ALBUTEROL 3 ML NEB INHALATION SCH ×4 (07:48→19:47)
[2019-08-09] MEDS ORDERED: FUROSEMIDE 40 MG TAB PO SCH (09:00)
--- NOTE | 2019-08-09 11:53 | XR ---
EXAMINATION TYPE: XR chest 1V portable DATE OF EXAM: 08/09/2019 Comparison: 08/08/2019 Clinical History: 74-year-old female shortness of breath Findings: Left anterior chest wall pacemaker generator with right atrial and ventricular leads. Heart is enlarg ed. Diffuse interstitial density, more patchy in the lower lungs. No sizable effusion. Impression: Correlate for CHF with pulmonary vascular congestion. Mild patchy densities in the lower lungs probab ly atelectasis versus developing edema.
[2019-08-09 12:54] LABS: Potassium 4.4 mmol/L (3.5-5.1)
[2019-08-09 13:47] VITALS: BMI 40.8
--- NOTE | 2019-08-09 15:49 | P.PN ---
Subjective Progress Note Date: 08/09/19 Principal diagnosis: Patient is a very pleasant 74-year-old female with known history of COPD came in with the complaints of shortness of breath patient quit smoking years ago. Karlo eli was hypoxic with oxygen saturation as low as 80s. Patient is comparing of cough without any sputum production patient denied any orthopnea proximal nocturnal dyspnea chest x-ray showed mild pulmonary edema. Patient doesn't have any significant JVD on exam though patient doesn't have any pedal edema. Patient denied any fever chills, COVID19 testing is pending. Patient is in a dose of IV Lasix because of pulmonary edema on the chest x-ray. Patient does have history of atrial fibrillation on anticoagulations patient does have a pacemaker and is on high-dose of beta justin for atrial fibrillation and sick sinus syndrome. 08/09/2019 Patient seen and evaluated and follow-up and continues to be severely dyspneic stating her shortness of breath has worsened and still continues to have quite a bit of bilateral lower lower extremity edema. Patient was started on oral Lasix although we'll transition back to IV Lasix for another 24 hours and monitor output. Chest x-ray today shows CHF with pulmonary vascular congestion along with mild patchy densities in the lower lungs probably atelectasis versus developing edema. Patient is up to the bathroom although becomes quite short of breath having to take multiple breaks sitting. Patient states she does normally wear 2 L of oxygen at night in the home setting. Patient also having some mild wheezing noted on exam and will be continued on IV steroids along with breathing treatments at this time. Patient's creatinine slightly worsened today 1.24, and sodium is slightly low at 132. Will repeat a.m. labs. No reports of chest pain or palpitations. Patient is afebrile. No reports of nausea or vomiting and patient is tolerating diet. Patient instructed to elevate the extremities while at rest. Objective - Vital Signs Vital signs: Vital Signs Temp 98 F 08/09/19 07:24 Pulse 82 08/09/19 11:45 Resp 18 08/09/19 07:00 BP 139/66 08/09/19 07:00 Pulse Ox 97 08/09/19 07:00 Intake & Output 08/08/19 08/09/19 08/09/19 18:59 06:59 18:59 Weight 94.801 kg 94.801 kg 94.801 kg Other: Voiding Method Toilet # Voids 2 3 - Exam GENERAL: The patient is alert and oriented x3, not in any acute distress. Well developed, well nourished. HEENT: Pupils are round and equally reacting to light. EOMI. No scleral icterus. No conjunctival pallor. Normocephalic, atraumatic. No pharyngeal erythema. No thyromegaly. CARDIOVASCULAR: S1 and S2 present. No murmurs, rubs, or gallops. PULMONARY: Minimal expiratory wheezing no crackles were appreciated no JVD. ABDOMEN: Soft, nontender, nondistended, normoactive bowel sounds. No palpable organomegaly. MUSCULOSKELETAL: No joint swelling or deformity. EXTREMITIES: No cyanosis, clubbing, or pedal edema. NEUROLOGICAL: Gross neurological examination did not reveal any focal deficits. SKIN: No rashes. - Labs CBC & Chem 7: 08/08/19 10:50 08/09/19 12:07 Labs: Abnormal Lab Results - Last 24 Hours (Table) 08/09/19 Range/Units 12:07 Sodium 132 L (137-145) mmol/L BUN 38 H (7-17) mg/dL Creatinine 1.24 H (0.52-1.04) mg/dL Glucose 131 H (74-99) mg/dL Assessment and Plan Assessment: -Acute hypoxic and hypercapnic respiratory failure: Secondary to COPD exacerbation there is a component of the CHF that contributed to her shortness of breath as well. Continue with the systemic steroids inhalational treatments. Will monitor the patient overnight and reevaluate in the morning. -ruled out COVID 19, testing was negative -Possible chronic diastolic dysfunction with mild acute exacerbation patient was given a dose of IV Lasix, will continue with IV Lasix for another 24 hours and reassess in the morning -Acute renal failure probably secondary to prerenal azotemia from heart failure. Current creatinine 1.24 -Atrial fibrillation and sick sinus syndrome: Patient will be continued on anticoagulation, continue with beta justin. -Coronary artery disease -Hypothyroidism -DVT prophylaxis: Patient is already on anticoagulation -GI prophylaxis: Pepcid
[2019-08-09] MEDS: ACETAMINOPHEN TAB 500 MG TAB PO PRN (19:30)
[2019-08-09] MEDS: ATORVASTATIN 40 MG TAB PO SCH (21:01)
[2019-08-09] MEDS: FUROSEMIDE 10 MG/ML 4 ML VIAL IV SCH (21:02)
[2019-08-10] MEDS: ACETAMINOPHEN TAB 500 MG TAB PO PRN (03:09)
[2019-08-10] MEDS: LEVOTHYROXINE 75 MCG TAB PO SCH (04:29)
[2019-08-10] MEDS: methylPREDNISolone SOD SUCCI 40 MG/ML 1 ML VIAL IV SCH (07:20)
[2019-08-10] MEDS: ALLOPURINOL 100 MG TAB PO SCH (07:23)
[2019-08-10] MEDS: guaiFENesin 600 MG TABLET.ER PO SCH (07:23)
[2019-08-10] MEDS: ASPIRIN 81 MG PO SCH (07:24)
[2019-08-10] MEDS: METOPROLOL SUCCINATE (ER) 100 MG TAB.ER.24H PO SCH (07:24)
[2019-08-10] MEDS: FUROSEMIDE 10 MG/ML 4 ML VIAL IV SCH (07:27)
[2019-08-10] MEDS: RIVAROXABAN 20 MG TAB PO SCH (07:31)
[2019-08-10 07:56] VITALS: BP 138/81; TEMP 97.5
[2019-08-10] MEDS: IPRATROPIUM-ALBUTEROL 3 ML NEB INHALATION SCH ×2 (08:00→11:32)
[2019-08-10] MEDS: BUDESONIDE 0.5 MG/2 ML NEBU INHALATION SCH (08:00)
[2019-08-10] MEDS ORDERED: FAMOTIDINE 20 MG TAB PO SCH (09:00)
[2019-08-10 09:13] VITALS: RESP 18
[2019-08-10 09:16] LABS: Calcium 9.2 mg/dL (8.4-10.2); Potassium 4.2 mmol/L (3.5-5.1)
[2019-08-10 11:43] VITALS: PULSE 86
--- NOTE | 2019-08-10 13:13 | P.HPIM ---
History of Present Illness 74-year-old female with known history of COPD came in with the complaints of shortness of breath patient quit smoking years ago. Patient was hypoxic with oxygen saturation as low as 80s. Patient is comparing of cough without any sp utum production patient denied any orthopnea proximal nocturnal dyspnea chest x- ray showed mild pulmonary edema. Patient doesn't have any significant JVD on exam though patient doesn't have any pedal edema. Patient denied any fever chills, COVID19 testing is pending. Patient is in a dose of IV Lasix because of pulmonary edema on the chest x-ray. Patient does have history of atrial fibrillation on anticoagulations patient does have a pacemaker and is on high- dose of beta justin for atrial fibrillation and sick sinus syndrome. 08/09/2019 Patient seen and evaluated and follow-up and continues to be severely dyspneic stating her shortness of breath has worsened and still continues to have quite a bit of bilateral lower lower extremity edema. Patient was started on oral Lasix although we'll transition back to IV Lasix for another 24 hours and monitor output. Chest x-ray today shows CHF with pulmonary vascular congestion along with mild patchy densities in the lower lungs probably atelectasis versus developing edema. Patient is up to the bathroom although becomes quite short of breath having to take multiple breaks sitting. Patient states she does normally wear 2 L of oxygen at night in the home setting. Patient also having some mild wheezing noted on exam and will be continued on IV steroids along with breathing treatments at this time. Patient's creatinine slightly worsened today 1.24, and sodium is slightly low at 132. Will repeat a.m. labs. No reports of chest pain or palpitations. Patient is afebrile. No reports of nausea or vomiting and patient is tolerating diet. Patient instructed to elevate the extremities while at rest. 08/10/2019 Patient is feeling much better today wanted to be discharged although her serum creatinine went up and syndromes underwent up I believe this is because of IV Lasix she received yesterday. Patient will be switched back to his her home dose of Lasix patient it with compression socks for her pedal edema on repeat basic metabolic profile in 2 days. Patient will be discharged with weaning dose of steroids patient is admitted for COPD exacerbation. Her vision completely resolved PHYSICAL EXAMINATION: GENERAL: The patient is alert and oriented x3, not in any acute distress. Well developed, well nourished. HEENT: Pupils are round and equally reacting to light. EOMI. No scleral icterus. No conjunctival pallor. Normocephalic, atraumatic. No pharyngeal erythema. No thyromegaly. CARDIOVASCULAR: S1 and S2 present. No murmurs, rubs, or gallops. PULMONARY: Chest is clear to auscultation, no wheezing or crackles. ABDOMEN: Soft, nontender, nondistended, normoactive bowel sounds. No palpable organomegaly. MUSCULOSKELETAL: No joint swelling or deformity. EXTREMITIES: No cyanosis, clubbing, mild pitting pedal edema is present NEUROLOGICAL: Gross neurological examination did not reveal any focal deficits. SKIN: No rashes. Assessment and Plan Assessment: -Acute hypoxic and hypercapnic respiratory failure: Secondary to COPD exacerbation there is a component of the CHF that contributed to her shortness of breath as well. -ruled out COVID 19, testing was negative -Possible chronic diastolic dysfunction with mild acute exacerbation -Acute renal failure probably secondary to prerenal azotemia from heart failure. Current creatinine 1.24 mild worsening secondary to IV Lasix -Atrial fibrillation and sick sinus syndrome: Patient will be continued on antic oagulation, continue with beta justin. -Coronary artery disease -Hypothyroidism -DVT prophylaxis: Patient is already on anticoagulation Past Medical History Past Medical History: Atrial Fibrillation, Asthma, Coronary Artery Disease (CAD), Cancer, COPD, Eye Disorder, Hearing Disorder / Deafness, Myocardial Infarction ([place]), Osteoarthritis (OA), Pneumonia, Thyroid Disorder Additional Past Medical History / Comment(s): See Dr Trimble's H&P, Gout, hiatal hernia, Macular Degeneration, Skin Cancer, degenerative disc disease, osteopo rosis. UTI 07/01/19. Last Myocardial Infarction Date:: 2011 History of Any Multi-Drug Resistant Organisms: None Reported Past Surgical History: Ablation, Cholecystectomy, Heart Catheterization With Stent, Hysterectomy, Orthopedic Surgery, Tonsillectomy Additional Past Surgical History / Comment(s): Right shoulder, left wrist. Thyroid Nodule removed, Cataracts, LOOP RECORDER-11/23/17; CHRIO ABLATION 03/08/18 WITH CARDIOVERSION Past Anesthesia/Blood Transfusion Reactions: No Reported Reaction Date of Last Stent Placement:: 2011 Type of Cardiac Device: Loop Device Placement Date:: 11/23/17 Past Psychological History: No Psychological Hx Reported Smoking Status: Former smoker Past Alcohol Use History: None Reported Additional Past Alcohol Use History / Comment(s): started smoking at age [age]) and quit 2006, smoked 2ppd Past Drug Use History: None Reported - Past Family History Mother Family Medical History: Cancer, Congestive Heart Failure (CHF), Myocardial Infarction ([place]), Pneumonia, Pulmonary Embolus Additional Family Medical History / Comment(s): breast CA Father Family Medical History: CVA/TIA, Myocardial Infarction ([place]) Medications and Allergies Home Medications Medication Instructions Recorded Confirmed Type Albuterol Sulfate [Ventolin HFA] 2 puff INHALATION RT-QID PRN 08/11/13 08/09/19 History Vit C/E/Zn/Coppr/Lutein/Zeaxan 1 cap PO DAILY 03/02/15 08/09/19 History [Preservision Areds 2 Softgel] Atorvastatin [Lipitor] 40 mg PO HS #30 tab 03/04/15 08/09/19 Rx Cholecalciferol [Vitamin D3 (25 1,000 unit PO DAILY 08/30/17 08/09/19 History Mcg = 1000 Iu)] Magnesium Oxide [Mag-Ox] 250 mg PO DAILY 08/30/17 08/09/19 History guaiFENesin [Mucinex] 600 mg PO BID 08/30/17 08/09/19 History Rivaroxaban [Xarelto] 20 mg PO DAILY 09/11/17 08/09/19 History Allopurinol [Zyloprim] 100 mg PO HS 10/22/18 08/09/19 History Levothyroxine Sodium [Synthroid] 75 mcg PO DAILY 10/22/18 08/09/19 History Potassium Chloride ER [K-Dur 20] 20 meq PO DAILY 10/22/18 08/09/19 History Fluticasone/Umeclidin/Vilanter 1 puff INHALATION RT-DAILY 07/01/19 08/09/19 History [Trelegy Ellipta 100-62.5-25] Ipratropium Nebulized [Atrovent 0.5 mg INHALATION RT-TID 07/01/19 08/09/19 History Nebulized 0.2 MG/ML] Metoprolol Succinate (ER) [Toprol 100 mg PO DAILY #90 tab 07/18/19 08/09/19 Rx XL] Aspirin [Inyo Aspirin EC] 81 mg PO HS 08/09/19 08/09/19 History Budesonide [Pulmicort] 0.5 mg INHALATION RT-BID 08/09/19 08/09/19 History Diltiazem HCl [Diltiazem HCl 24Hr 180 mg PO DAILY 08/09/19 08/09/19 History ER] Furosemide [Lasix] 40 mg PO DAILY #30 tablet 08/10/19 08/09/19 Rx predniSONE 10 mg PO DAILY #30 tab 08/10/19 Rx Allergies Allergy/AdvReac Type Severity Reaction Status Date / Time codeine Allergy Itching Verified 08/09/19 13:24 Physical Exam Vitals: Vital Signs Temp Pulse Pulse Resp BP Pulse Ox 08/10/19 11:42 86 08/10/19 11:34 82 08/10/19 08:13 80 08/10/19 08:05 18 08/10/19 08:02 84 08/10/19 07:00 97.5 F L 65 17 138/81 96 08/10/19 03:33 97.7 F 63 17 145/70 97 08/10/19 03:04 16 08/09/19 23:45 18 08/09/19 21:00 148/78 08/09/19 20:00 88 08/09/19 19:47 84 08/09/19 19:22 98 F 78 18 131/79 97 08/09/19 15:36 88 08/09/19 15:27 86 08/09/19 14:39 97.9 F 87 16 135/74 96 Intake and Output 08/09/19 08/10/19 08/10/19 22:59 06:59 14:59 Other: Voiding Method Toilet Toilet # Voids 1 1 2 Results CBC & Chem 7: 08/08/19 10:50 08/10/19 08:16 Labs: Abnormal Lab Results - Last 24 Hours (Table) 08/10/19 Range/Units 08:16 Sodium 132 L (137-145) mmol/L Carbon Dioxide 21 L (22-30) mmol/L BUN 47 H (7-17) mg/dL Creatinine 1.26 H (0.52-1.04) mg/dL Glucose 189 H (74-99) mg/dL Thrombosis Risk Factor Assmnt - Choose All That Apply Any of the Below Risk Factors Present?: Yes Each Factor Represents 1 point: Obesity (BMI >25), Swollen legs (current) Other Risk Factors: Yes Each Risk Factor Represents 2 Points: Age 61-74 years Thrombosis Risk Factor Assessment Total Risk Factor Score: 4 Thrombosis Risk Factor Assessment Level: Moderate Risk
--- NOTE | 2019-08-10 13:14 | P.DS ---
Providers Date of admission: 08/08/19 12:40 Attending physician: Myron Yoon Primary care physician: Nirali Elizabeth [facility] Course: 74-year-old female with known history of COPD came in with the complaints of shortness of breath patient quit smoking years ago. Patient was hypoxic with oxygen saturation as low as 80s. Patient is comparing of cough without any sputum production patient denied any orthopnea proximal nocturnal dyspnea chest x-ray showed mild pulmonary edema. Patient doesn't have any significant JVD on exam though patient doesn't have any pedal edema. Patient denied any fever chills, COVID19 testing is pending. Patient is in a dose of IV Lasix because of pulmonary edema on the chest x-ray. Patient does have history of atrial fibrillation on anticoagulations patient does have a pacemaker and is on high- dose of beta justin for atrial fibrillation and sick sinus syndrome. 08/09/2019 Patient seen and evaluated and follow-up and continues to be severely dyspneic stating her shortness of breath has worsened and still continues to have quite a bit of bilateral lower lower extremity edema. Patient was started on oral Lasix although we'll transition back to IV Lasix for another 24 hours and monitor output. Chest x-ray today shows CHF with pulmonary vascular congestion along with mild patchy densities in the lower lungs probably atelectasis versus developing edema. Patient is up to the bathroom although becomes quite short of breath having to take multiple breaks sitting. Patient states she does normally wear 2 L of oxygen at night in the home setting. Patient also having some mild wheezing noted on exam and will be continued on IV steroids along with breathing treatments at this time. Patient's creatinine slightly worsened today 1.24, and sodium is slightly low at 132. Will repeat a.m. labs. No reports of chest pain or palpitations. Patient is afebrile. No reports of nausea or vomiting and patient is tolerating diet. Patient instructed to elevate the extremities while at rest. 08/10/2019 Patient is feeling much better today wanted to be discharged although her serum creatinine went up and syndromes underwent up I believe this is because of IV Lasix she received yesterday. Patient will be switched back to his her home dose of Lasix patient it with compression socks for her pedal edema on repeat basic metabolic profile in 2 days. Patient will be discharged with weaning dose of steroids patient is admitted for COPD exacerbation. Her vision completely resolved PHYSICAL EXAMINATION: GENERAL: The patient is alert and oriented x3, not in any acute distress. Well developed, well nourished. HEENT: Pupils are round and equally reacting to light. EOMI. No scleral icterus. No conjunctival pallor. Normocephalic, atraumatic. No pharyngeal erythema. No thyromegaly. CARDIOVASCULAR: S1 and S2 present. No murmurs, rubs, or gallops. PULMONARY: Chest is clear to auscultation, no wheezing or crackles. ABDOMEN: Soft, nontender, nondistended, normoactive bowel sounds. No palpable organomegaly. MUSCULOSKELETAL: No joint swelling or deformity. EXTREMITIES: No cyanosis, clubbing, mild pitting pedal edema is present NEUROLOGICAL: Gross neurological examination did not reveal any focal deficits. SKIN: No rashes. Assessment and Plan Assessment: -Acute hypoxic and hypercapnic respiratory failure: Secondary to COPD exacerbation there is a component of the CHF that contributed to her shortness of breath as well. -ruled out COVID 19, testing was negative -Possible chronic diastolic dysfunction with mild acute exacerbation -Acute renal failure probably secondary to prerenal azotemia from heart failure. Current creatinine 1.24 mild worsening secondary to IV Lasix -Atrial fibrillation and sick sinus syndrome: Patient will be continued on anticoagulation, continue with beta justin. -Coronary artery disease -Hypothyroidism -DVT prophylaxis: Patient is already on anticoagulation Patient Condition at Discharge: Stable Plan - Discharge Summary New Discharge Prescriptions: New predniSONE 10 mg PO DAILY #30 tab Continue Albuterol Sulfate [Ventolin HFA] 2 puff INHALATION RT-QID PRN PRN Reason: Shortness Of Breath Vit C/E/Zn/Coppr/Lutein/Zeaxan [Preservision Areds 2 Softgel] 1 cap PO DAILY Atorvastatin [Lipitor] 40 mg PO HS #30 tab Magnesium Oxide [Mag-Ox] 250 mg PO DAILY Cholecalciferol [Vitamin D3 (25 Mcg = 1000 Iu)] 1,000 unit PO DAILY guaiFENesin [Mucinex] 600 mg PO BID Rivaroxaban [Xarelto] 20 mg PO DAILY Allopurinol [Zyloprim] 100 mg PO HS Levothyroxine Sodium [Synthroid] 75 mcg PO DAILY Potassium Chloride ER [K-Dur 20] 20 meq PO DAILY Ipratropium Nebulized [Atrovent Nebulized 0.2 MG/ML] 0.5 mg INHALATION RT-TID Fluticasone/Umeclidin/Vilanter [Trelegy Ellipta 100-62.5-25] 1 puff INHALATION RT-DAILY Metoprolol Succinate (ER) [Toprol XL] 100 mg PO DAILY #90 tab Diltiazem HCl [Diltiazem HCl 24Hr ER] 180 mg PO DAILY Aspirin [Eldred Aspirin EC] 81 mg PO HS Budesonide [Pulmicort] 0.5 mg INHALATION RT-BID Furosemide [Lasix] 40 mg PO DAILY #30 tablet Discharge Medication List Albuterol Sulfate [Ventolin HFA] 2 puff INHALATION RT-QID PRN 08/11/13 [History] Vit C/E/Zn/Coppr/Lutein/Zeaxan [Preservision Areds 2 Softgel] 1 cap PO DAILY 03/02/15 [History] Atorvastatin [Lipitor] 40 mg PO HS #30 tab 03/04/15 [Rx] Cholecalciferol [Vitamin D3 (25 Mcg = 1000 Iu)] 1,000 unit PO DAILY 08/30/17 [History] Magnesium Oxide [Mag-Ox] 250 mg PO DAILY 08/30/17 [History] guaiFENesin [Mucinex] 600 mg PO BID 08/30/17 [History] Rivaroxaban [Xarelto] 20 mg PO DAILY 09/11/17 [History] Allopurinol [Zyloprim] 100 mg PO HS 10/22/18 [History] Levothyroxine Sodium [Synthroid] 75 mcg PO DAILY 10/22/18 [History] Potassium Chloride ER [K-Dur 20] 20 meq PO DAILY 10/22/18 [History] Fluticasone/Umeclidin/Vilanter [Trelegy Ellipta 100-62.5-25] 1 puff INHALATION RT-DAILY 07/01/19 [History] Ipratropium Nebulized [Atrovent Nebulized 0.2 MG/ML] 0.5 mg INHALATION RT-TID 07/01/19 [History] Metoprolol Succinate (ER) [Toprol XL] 100 mg PO DAILY #90 tab 07/18/19 [Rx] Aspirin [Eldred Aspirin EC] 81 mg PO HS 08/09/19 [History] Budesonide [Pulmicort] 0.5 mg INHALATION RT-BID 08/09/19 [History] Diltiazem HCl [Diltiazem HCl 24Hr ER] 180 mg PO DAILY 08/09/19 [History] Furosemide [Lasix] 40 mg PO DAILY #30 tablet 08/10/19 [Rx] predniSONE 10 mg PO DAILY #30 tab 08/10/19 [Rx] Follow up Appointment(s)/Referral(s): Nirali Elizabeth MD [Primary Care Provider] - 3 Days Ambulatory/Diagnostic Orders: Basic Metabolic Panel [LAB.AMB] Time Frame: 3 Days, Location: None Selected Patient Instructions/Handouts: Heart Failure (DC), COPD (Chronic Obstructive Pulmonary Disease) (DC) Discharge Disposition: HOME SELF-CARE
== END 2019-08-10 14:10 | disposition home or self-care (01) | DRG 291 ==
LOC: EC 10:32 → 4SSUR 12:40
PROVIDERS: ADMIT Internal Medicine; ATTEND Internal Medicine
DX: I50.33 Acute on chronic diastolic (congestive) heart failure (principal); J96.01 Acute respiratory failure with hypoxia; J96.02 Acute respiratory failure with hypercapnia; J44.1 Chronic obstructive pulmonary disease with (acute) exacerbation; N17.9 Acute kidney failure, unspecified; Z68.41 Body mass index [BMI] 40.0-44.9, adult; I48.91 Unspecified atrial fibrillation; I49.5 Sick sinus syndrome; E03.9 Hypothyroidism, unspecified; H91.90 Unspecified hearing loss, unspecified ear; I25.10 Atherosclerotic heart disease of native coronary artery without angina pectoris; I25.2 Old myocardial infarction; M81.0 Age-related osteoporosis without current pathological fracture; T50.1X5A Adverse effect of loop [high-ceiling] diuretics, initial encounter; Z20.828 Contact with and (suspected) exposure to other viral communicable diseases; Z79.01 Long term (current) use of anticoagulants; Z79.82 Long term (current) use of aspirin; Z79.890 Hormone replacement therapy; Z79.899 Other long term (current) drug therapy; Z80.3 Family history of malignant neoplasm of breast; Z82.49 Family history of ischemic heart disease and other diseases of the circulatory system; Z85.828 Personal history of other malignant neoplasm of skin; Z87.891 Personal history of nicotine dependence; Z90.710 Acquired absence of both cervix and uterus; Z95.0 Presence of cardiac pacemaker; Z83.6 Family history of other diseases of the respiratory system; Z83.2 Family history of diseases of the blood and blood-forming organs and certain disorders involving the immune mechanism; Z09 Encounter for follow-up examination after completed treatment for conditions other than malignant neoplasm; Z87.440 Personal history of urinary (tract) infections; M10.9 Gout, unspecified; Z98.49 Cataract extraction status, unspecified eye; E66.9 Obesity, unspecified
CPT/HCPCS: 36415; 71045; 71046; 80048; 80053; 83605; 83735; 83880; 84484; 85025; 85610; 85730; 93005; 94640; 96374; 96375; 99291

== ENCOUNTER 2019-09-01 17:50 | Inpatient (IN) | payer MEDICARE ==
[2019-09-01] MEDS ORDERED: SODIUM CHLORIDE 0.9% 1,000 ML IV STA (17:59)
--- NOTE | 2019-09-01 18:13 | ED ---
General Adult HPI - General Chief complaint: Arrhythmia/Palpitations Stated complaint: Cardiac Issues Time Seen by Provider: 09/01/19 17:53 Source: patient, EMS Mode of arrival: EMS Limitations: no limitations - History of Present Illness Initial comments: Dictation was produced using [employer] dictation software. please excuse any grammatical, word or spelling errors. This patient was cared for during a federal and state declared state of emergen cy secondary to Covid 19 Chief Complaint: 74-year-old female multiple cardiac comorbidities presents with palpitations. History of Present Illness: Patient 74-year-old female she is brought in by EMS from home for palpitations. Patient states that today she all of a sudden began experiencing severe palpitations. She states that her symptoms started about 3 hours ago. She also had associated chest pain that she describes as sharp radiating up to her throat area. Denies any diaphoresis. States that the pain lasted for several minutes and then went away. Patient is asymptomatic of any chest pain at this time. Patient when asked if she short of breath since yes she states that it's from her COPD. She does not feel like her dyspnea is worse than usual. EMS provided patient with nitroglycerin on 2 occasions. The first administration of nitroglycerin by EMS provided relief however, minutes later patient's chest pain returned and he was provided her with second dose of ni troglycerin to work as well however her pain did improve while en route to the emergency department. Patient denies any numbness and paresthesias to her arms or legs. Patient states she struggles with A. fib on several occasions patient takes multiple medications to control her heart rate. Patient also has pacemaker. Patient denies any recent changes in her daily habits. She denies any recent alcohol or drug use. The ROS documented in this emergency department record has been reviewed and confirmed by me. Those systems with pertinent positive or negative responses have been documented in the HPI. All other systems are other negative and/or noncontributory. PHYSICAL EXAM: General Impression: Alert and oriented x3, not in acute distress HEENT: Normocephalic atraumatic, extra-ocular movements intact, pupils equal and reactive to light bilaterally, mucous membranes moist. Cardiovascular: Irregular heart rate, no murmurs Chest: Able to complete full sentences, no retractions, no tachypnea, bilateral breath sounds Abdomen: abdomen soft, non-tender, non-distended, no organomegaly Musculoskeletal: Pulses present and equal in all extremities, no peripheral edema Motor: no focal deficits noted Neurological: CN II-XII grossly intact, no focal motor or sensory deficits noted Skin: Intact with no visualized rashes Psych: Normal affect and mood ED course: 74-year-old female presents with chief complaint of palpitations. Clinical presentation consistent with H fibrillation rapid ventricular rate. Vital signs upon arrival shows heart rate of 126. Rest vital signs within acc eptable limits. She reports that she is compliant with all her medications.Laboratory evaluation obtained. CBC unremarkable. Coag panel is unremarkable. Metabolic panel shows slight elevated BUN to creatinine ratio concerning for mild dehydration. Troponin is 0.013. Chest x-ray shows chronic processes without any acute process. Patient was started on Cardizem drip. Her heart rate was controlled and is in between 105 and 1:15. Patient be admitted for cardiology consultation. Patient given aspirin for concern of right distal dependent ischemia. Patient reevaluated at bedside and found to be in stable medical condition. She has no complaints. She tolerated oral bedside. Discussed patient case with Dr. Tanner who is willing to accept patient's case. Dr. Tanner's at bedside. Patient Xarelto will be continued. EKG interpretation: Ventricular rate 141, a fibrillation, QRS 114, QTc 490. No NM prolongation, no QTC prolongation, no ST or T-wave changes noted. There does appear to be some ST depressions in the lateral precordial leads. EKG is consistent with rate-dependent ischemia. - Related Data Home Medications Medication Instructions Recorded Confirmed Albuterol Sulfate [Ventolin HFA] 2 puff INHALATION RT-QID PRN 08/11/13 08/09/19 Vit C/E/Zn/Coppr/Lutein/Zeaxan 1 cap PO DAILY 03/02/15 08/09/19 [Preservision Areds 2 Softgel] Cholecalciferol [Vitamin D3 (25 1,000 unit PO DAILY 08/30/17 08/09/19 Mcg = 1000 Iu)] Magnesium Oxide [Mag-Ox] 250 mg PO DAILY 08/30/17 08/09/19 guaiFENesin [Mucinex] 600 mg PO BID 08/30/17 08/09/19 Rivaroxaban [Xarelto] 20 mg PO DAILY 09/11/17 08/09/19 Allopurinol [Zyloprim] 100 mg PO HS 10/22/18 08/09/19 Levothyroxine Sodium [Synthroid] 75 mcg PO DAILY 10/22/18 08/09/19 Potassium Chloride ER [K-Dur 20] 20 meq PO DAILY 10/22/18 08/09/19 Fluticasone/Umeclidin/Vilanter 1 puff INHALATION RT-DAILY 07/01/19 08/09/19 [Trelegy Ellipta 100-62.5-25] Ipratropium Nebulized [Atrovent 0.5 mg INHALATION RT-TID 07/01/19 08/09/19 Nebulized 0.2 MG/ML] Aspirin [[place] Aspirin EC] 81 mg PO HS 08/09/19 08/09/19 Budesonide [Pulmicort] 0.5 mg INHALATION RT-BID 08/09/19 08/09/19 Diltiazem HCl [Diltiazem HCl 24Hr 180 mg PO DAILY 08/09/19 08/09/19 ER] Previous Rx's Medication Instructions Recorded Atorvastatin [Lipitor] 40 mg PO HS #30 tab 03/04/15 Metoprolol Succinate (ER) [Toprol 100 mg PO DAILY #90 tab 07/18/19 XL] Furosemide [Lasix] 40 mg PO DAILY #30 tablet 08/10/19 predniSONE 10 mg PO DAILY #30 tab 08/10/19 Allergies Allergy/AdvReac Type Severity Reaction Status Date / Time codeine Allergy Itching Verified 09/01/19 17:56 Review of Systems ROS Statement: Those systems with pertinent positive or pertinent negative responses have been documented in the HPI. ROS Other: All systems not noted in ROS Statement are negative. Past Medical History Past Medical History: Atrial Fibrillation, Asthma, Coronary Artery Disease (CAD), Cancer, COPD, Eye Disorder, Hearing Disorder / Deafness, Myocardial Infarction (MS), Osteoarthritis (OA), Pneumonia, Thyroid Disorder Additional Past Medical History / Comment(s): See Dr Trimble's H&P, Gout, hiatal hernia, Macular Degeneration, Skin Cancer, degenerative disc disease, osteoporosis. UTI 07/01/19. Last Myocardial Infarction Date:: 2011 History of Any Multi-Drug Resistant Organisms: None Reported Past Surgical History: Ablation, Cholecystectomy, Heart Catheterization With Stent, Hysterectomy, Orthopedic Surgery, Pacemaker, Tonsillectomy Additional Past Surgical History / Comment(s): Right shoulder, left wrist. Thyroid Nodule removed, Cataracts, LOOP RECORDER-11/23/17; CHRIO ABLATION 03/08/18 WITH CARDIOVERSION Past Anesthesia/Blood Transfusion Reactions: No Reported Reaction Date of Last Stent Placement:: 2011 Type of Cardiac Device: Loop Device Placement Date:: 11/23/17 Past Psychological History: No Psychological Hx Reported Smoking Status: Former smoker Past Alcohol Use History: None Reported Past Drug Use History: None Reported - Past Family History Mother Family Medical History: Cancer, Congestive Heart Failure (CHF), Myocardial Infarction (MS), Pneumonia, Pulmonary Embolus Additional Family Medical History / Comment(s): breast CA Father Family Medical History: CVA/TIA, Myocardial Infarction (MS) General Exam Limitations: no limitations Course Vital Signs 09/01/19 09/01/19 09/01/19 17:56 18:01 18:08 Temperature 99.1 F Pulse Rate 126 H 118 H Pulse Rate [ 133 H Risk Control Director ] Respiratory 18 18 Rate Blood Pressure 120/76 109/79 O2 Sat by Pulse 97 97 Oximetry 09/01/19 18:35 Temperature Pulse Rate 123 H Pulse Rate [ Risk Control Director ] Respiratory 18 Rate Blood Pressure 121/60 O2 Sat by Pulse 97 Oximetry Medical Decision Making - Lab Data Result diagrams: 09/01/19 18:05 09/01/19 18:05 Lab Results 09/01/19 09/01/19 09/01/19 Range/Units 18:05 18:05 18:05 WBC 9.6 (3.8-10.6) k/uL RBC 4.69 (3.80-5.40) m/uL Hgb 11.9 (11.4-16.0) gm/dL Hct 37.9 (34.0-46.0) % MCV 81.0 (80.0-100.0) fL MCH 25.3 (25.0-35.0) pg MCHC 31.3 (31.0-37.0) g/dL RDW 17.6 H (11.5-15.5) % Plt Count 200 (150-450) k/uL Neutrophils % 68 % Lymphocytes % 18 % Monocytes % 7 % Eosinophils % 4 % Basophils % 1 % Neutrophils # 6.5 (1.3-7.7) k/uL Lymphocytes # 1.8 (1.0-4.8) k/uL Monocytes # 0.6 (0-1.0) k/uL Eosinophils # 0.4 (0-0.7) k/uL Basophils # 0.1 (0-0.2) k/uL Anisocytosis Slight Microcytosis Slight PT 11.8 (9.0-12.0) sec INR 1.2 H (<1.2) APTT 29.2 (22.0-30.0) sec Sodium 136 L (137-145) mmol/L Potassium 3.8 (3.5-5.1) mmol/L Chloride 106 (98-107) mmol/L Carbon Dioxide 24 (22-30) mmol/L Anion Gap 6 mmol/L BUN 23 H (7-17) mg/dL Creatinine 1.09 H (0.52-1.04) mg/dL Est GFR (CKD-EPI)AfAm 58 (>60 ml/min/1.73 sqM) Est GFR (CKD-EPI)NonAf 50 (>60 ml/min/1.73 sqM) Glucose 99 (74-99) mg/dL Calcium 8.5 (8.4-10.2) mg/dL Magnesium 1.9 (1.6-2.3) mg/dL Total Bilirubin 0.5 (0.2-1.3) mg/dL AST 36 (14-36) U/L ALT 24 (4-34) U/L Alkaline Phosphatase 118 (38-126) U/L Troponin I (0.000-0.034) ng/mL Total Protein 6.7 (6.3-8.2) g/dL Albumin 3.8 (3.5-5.0) g/dL Lipase 161 (23-300) U/L / Range/Units 18:05 WBC (3.8-10.6) k/uL RBC (3.80-5.40) m/uL Hgb (11.4-16.0) gm/dL Hct (34.0-46.0) % MCV (80.0-100.0) fL MCH (25.0-35.0) pg MCHC (31.0-37.0) g/dL RDW (11.5-15.5) % Plt Count (150-450) k/uL Neutrophils % % Lymphocytes % % Monocytes % % Eosinophils % % Basophils % % Neutrophils # (1.3-7.7) k/uL Lymphocytes # (1.0-4.8) k/uL Monocytes # (0-1.0) k/uL Eosinophils # (0-0.7) k/uL Basophils # (0-0.2) k/uL Anisocytosis Microcytosis PT (9.0-12.0) sec INR (<1.2) APTT (22.0-30.0) sec Sodium (137-145) mmol/L Potassium (3.5-5.1) mmol/L Chloride (98-107) mmol/L Carbon Dioxide (22-30) mmol/L Anion Gap mmol/L BUN (7-17) mg/dL Creatinine (0.52-1.04) mg/dL Est GFR (CKD-EPI)AfAm (>60 ml/min/1.73 sqM) Est GFR (CKD-EPI)NonAf (>60 ml/min/1.73 sqM) Glucose (74-99) mg/dL Calcium (8.4-10.2) mg/dL Magnesium (1.6-2.3) mg/dL Total Bilirubin (0.2-1.3) mg/dL AST (14-36) U/L ALT (4-34) U/L Alkaline Phosphatase (38-126) U/L Troponin I 0.013 (0.000-0.034) ng/mL Total Protein (6.3-8.2) g/dL Albumin (3.5-5.0) g/dL Lipase (23-300) U/L Disposition Clinical Impression: Atrial fibrillation Disposition: ADMITTED IP TO THIS HOSP Condition: Fair Referrals: Nirali Elizabeth MD [Primary Care Provider] - 1-2 days Decision Time: 19:00
[2019-09-01 18:21] LABS: Anisocytosis Slight; Basophils # (A) 0.1 k/uL (0-0.2); Basophils % (A) 1 %; Eosinophils # (A) 0.4 k/uL (0-0.7); Eosinophils % (A) 4 %; HCT 37.9 % (34.0-46.0); HGB 11.9 gm/dL (11.4-16.0); Lymphocytes # (A) 1.8 k/uL (1.0-4.8); Lymphocytes % (A) 18 %; MCH 25.3 pg (25.0-35.0); MCHC 31.3 g/dL (31.0-37.0); Mean Platelet Volume 7.7; Microcytosis Slight; Monocytes # (A) 0.6 k/uL (0-1.0); Monocytes % (A) 7 %; Neutrophils # (A) 6.5 k/uL (1.3-7.7); Neutrophils % (A) 68 %; Platelet Count 200 k/uL (150-450); RBC 4.69 m/uL (3.80-5.40); RDW 17.6 % (11.5-15.5); WBC 9.6 k/uL (3.8-10.6)
[2019-09-01] MEDS ORDERED: DILTIAZEM 125 MG in SODIUM CHLORIDE 0.9% 100 ML IV SCH (18:30)
[2019-09-01 18:31] LABS: INR 1.2 (<1.2); Partial Thromboplastin Time 29.2 sec (22.0-30.0); Prothrombin Time 11.8 sec (9.0-12.0)
--- NOTE | 2019-09-01 18:31 | XR ---
EXAMINATION TYPE: XR chest 1V portable DATE OF EXAM: 09/01/2019 COMPARISON: Chest x-ray August 09, 2019. HISTORY: Chest pain today. TECHNIQUE: Single AP portable frontal upright view of the chest is obtained. FINDINGS: Overlying EKG leads present currently. Persistent cardiomegaly with dual lead pacemaker and atherosclerotic thoracic aorta. Chronic parenchymal changes bilaterally with bilateral hilar promine nce suggesting underlying pulmonary artery hypertension. No definitive new focal airspace opacity, pl eural effusion, or pneumothorax is seen bilaterally. Osseous structures remain demineralized. IMPRESSION: Chronic parenchymal changes and cardiomegaly without new suspicious acute pulmonary proc ess.
[2019-09-01 18:35] LABS: Albumin 3.8 g/dL (3.5-5.0); Calcium 8.5 mg/dL (8.4-10.2); Magnesium 1.9 mg/dL (1.6-2.3); Potassium 3.8 mmol/L (3.5-5.1); Total Bilirubin 0.5 mg/dL (0.2-1.3); Total Protein 6.7 g/dL (6.3-8.2)
[2019-09-01] MEDS ORDERED: NALOXONE 0.4 MG/ML 1 ML VIAL IV PRN (18:57)
[2019-09-01] MEDS ORDERED: ASPIRIN 81 MG PO STA (18:59)
[2019-09-01] MEDS: SODIUM CHLORIDE 0.9% 1,000 ML IV SCH (19:21)
[2019-09-01] MEDS ORDERED: ALPRAZolam 0.25 MG TAB PO PRN (19:27)
[2019-09-01] MEDS ORDERED: ACETAMINOPHEN TAB 500 MG TAB PO PRN (19:27)
--- NOTE | 2019-09-01 19:47 | US ---
EXAMINATION TYPE: US venous doppler duplex LE LT DATE OF EXAM: 09/01/2019 7:08 PM COMPARISON: NONE CLINICAL HISTORY: LLE swelling. Left leg pain and swelling x 2 days, patient on blood thinners SIDE PERFORMED: Left TECHNIQUE: The lower extremity deep venous system is examined utilizing real time linear array sonog maximiliano with graded compression, doppler sonography and color-flow sonography. VESSELS IMAGED: External Iliac Vein (EIV) Common Femoral Vein Deep Femoral Vein Greater Saphenous Vein * Femoral Vein Popliteal Vein Small Saphenous Vein * Proximal Calf Veins (* superficial vessels) Left Leg: Appears negative for DVT Grayscale, color doppler, spectral doppler imaging performed of the deep veins of the left lower extr emity. There is normal flow, compressibility, vascular waveforms. IMPRESSION: No ultrasound evidence for acute DVT in the left lower extremity.
[2019-09-01] MEDS: IPRATROPIUM-ALBUTEROL 3 ML NEB INHALATION SCH ×2 (20:04→20:47)
[2019-09-01] MEDS: BUDESONIDE 1 MG/2 ML NEBU INHALATION SCH ×2 (20:04→20:48)
[2019-09-01] MEDS: methylPREDNISolone SOD SUCCI 125 MG/2 ML VIAL IV SCH (22:30)
[2019-09-01] MEDS: INSULIN ASPART (NovoLOG) 100 UNIT/ML VIAL SQ SCH (23:59)
[2019-09-02] MEDS: methylPREDNISolone SOD SUCCI 125 MG/2 ML VIAL IV SCH ×5 (00:06→23:18)
--- NOTE | 2019-09-02 04:15 | HP ---
HISTORY AND PHYSICAL DATE OF SERVICE: 09/01/2019 CHIEF COMPLAINTS: Palpitations and chest pain. HISTORY OF PRESENT ILLNESS: This 74-year-old woman with a past medical history of atrial fibrillation, asthma, CAD, history of COPD, history of hearing defects, history pneumonia, history of gout, history of hiatal hernia, history of skin cancer, DJD, cholecystectomy, CAD, stent being followed by Dr. Elizabeth in the outpatient setting is complaining of some chest pain associated with some palpitations. The patient also had shortness of breath which has increased for the past several days. The patient came to [facility] and admitted for further evaluation and treatment. The patient was given some nitroglycerin. Otherwise, the patient was found to be in atrial fibrillation with a heart rate 128 and the patient was started on Cardizem drip and cardiology consultation in progress. There is no history of fever or rigors. No history of headache, loss of consciousness, or seizures. PAST MEDICAL HISTORY: Atrial fibrillation, history of asthma, CAD, COPD, history of hearing defects, history of myocardial infarction, history of CAD/stent. MEDICATIONS: Medications prior to admission include home medications are reviewed which include: 1. Xarelto 20 mg p.o. daily. 2. Prednisone taper. 3. Mucinex. 4. Vitamin C. 5. Potassium chloride. 6. Metoprolol. 7. Magnesium oxide 250 mg daily. 8. Synthroid 75 mcg p.o. daily. 9. Atrovent q.i.d. 10.Lasix 40 mg daily. 11.Trelegy 1 puff daily. 12.Cardizem 180 mg p.o. 13.Vitamin D3, 1000 daily. 14.Pulmicort 0.5 b.i.d. 15.Lipitor 40 mg at bedtime. 16.Aspirin 81 mg at bedtime. 17.Zyloprim 100 mg at bedtime. 18.Ventolin 2 puffs q.i.d. p.r.n. ALLERGIES: CODEINE. FAMILY HISTORY: History of cancer, CHF, myocardial infarction, pneumonia, pulmonary embolism, breast cancer. SOCIAL HISTORY: Previous history of smoking. No alcohol intake. REVIEW OF SYSTEMS: ENT: No diminished hearing, diminished vision. CARDIOVASCULAR SYSTEM: As mentioned earlier. RESPIRATORY SYSTEM: As mentioned earlier. GI: No nausea. : No dysuria. NERVOUS SYSTEM: No numbness or weakness. ALLERGY/IMMUNOLOGY: No asthma or hayfever. MUSCULOSKELETAL: As mentioned earlier. HEMATOLOGY: No history of anemia. ENDOCRINE: As mentioned earlier. CONSTITUTIONAL: As mentioned earlier. DERMATOLOGY: Negative. RHEUMATOLOGY: Negative. PSYCHIATRY: As mentioned earlier. PHYSICAL EXAMINATION: The patient is alert and oriented x3. The pulse is 123, irregular, respiration 18, temperature is normal, pulse ox 97% on 2 L, blood pressure 121/60. HEENT: Conjunctivae normal. Oral mucosa moist. NECK: No jugular venous distention. No carotid bruit. No lymph node enlargement. CARDIOVASCULAR: S1, S2 muffled. tachycardic. No murmur, no thrills RESPIRATORY: Breath sounds diminished at the bases. A few scattered rhonchi and crackles. Expiratory wheezing also present. ABDOMEN: Soft, obese, nontender. No mass palpable. LEGS: No edema, no swelling. NERVOUS SYSTEM: Higher function as mentioned earlier. Moves all 4 limbs. No focal motor or sensory deficits. LYMPHATICS: No lymphadenopathy of the neck, axillae or groin. SKIN: No ulcer, rash or bleeding. JOINTS: No active deforming arthropathy. LAB STUDIES: WBC 9.6, hemoglobin 11.9. Sodium 136. Creatinine is 1.09. EKG reviewed. cxr which was personally reviewed by me showed chronic changes without any suspicion of acute changes. ASSESSMENT: 1. Atrial fibrillation with fast ventricular rate. 2. Chronic obstructive pulmonary disease acute exacerbation acute purulent tracheobronchitis. 3. History of asthma. 4. History of coronary artery disease. 5. History of hearing defects. 6. Myocardial infarction. 7. History of degenerative joint disease. 8. History of pneumonia. 9. History of gout. 10.History of hiatal hernia. 11.History of macular degeneration. 12.History of osteoporosis. 13.History of cholecystectomy. 14.History of cardiac ablation. 15.History of coronary artery disease, stent. 16.Remote history of nicotine dependence. 17.FULL CODE. RECOMMENDATIONS AND DISCUSSION: This 74-year-old woman who presented with multiple complex medical issues, we will monitor the patient closely. Continue the current medication, continue symptomatic treatment. Continue the Cardizem drip. Empiric antibiotics. Also optimize treatment for bronchodilators. We will continue to monitor. Cardiology will be consulted. Guarded prognosis because of multiple complex medical issues. Further recommendations to follow. Home medications will be resumed once it is confirmed. A copy of dictation forwarded to Dr. Elizabeth who is the primary physician. MMODL / IJN: [id number] / [id number]
[2019-09-02 05:55] LABS: Glucose,Whole Blood 145 mg/dL (75-99)
[2019-09-02] MEDS: INSULIN ASPART (NovoLOG) 100 UNIT/ML VIAL SQ SCH ×4 (06:57→20:44)
[2019-09-02] MEDS: PANTOPRAZOLE 40 MG TABLET PO SCH (06:57)
[2019-09-02] MEDS: RIVAROXABAN 20 MG TAB PO SCH (07:47)
[2019-09-02 08:15] LABS: Calcium 8.7 mg/dL (8.4-10.2); Potassium 4.4 mmol/L (3.5-5.1)
[2019-09-02] MEDS: BUDESONIDE 1 MG/2 ML NEBU INHALATION SCH (08:46)
[2019-09-02] MEDS: IPRATROPIUM-ALBUTEROL 3 ML NEB INHALATION SCH ×4 (08:46→20:19)
[2019-09-02] MEDS ORDERED: FUROSEMIDE 10 MG/ML 4 ML VIAL IV STA (09:05)
[2019-09-02] MEDS ORDERED: DILTIAZEM CD 180 MG CAP.ER.24H PO SCH (09:15)
[2019-09-02] MEDS: METOPROLOL SUCCINATE (ER) 100 MG TAB.ER.24H PO SCH (09:24)
[2019-09-02] MEDS: SODIUM CHLORIDE 0.9% 1,000 ML IV SCH (12:08)
[2019-09-02] MEDS: MAGNESIUM OXIDE 400 MG TAB PO SCH (12:20)
[2019-09-02 12:22] LABS: Glucose,Whole Blood 159 mg/dL (75-99)
--- NOTE | 2019-09-02 12:56 | CONS ---
CONSULTATION CHIEF COMPLAINT: Palpitations and chest pain. Harmony is a 74-year-old lady with history of paroxysmal atrial fibrillation, status post prior ablation, status post Bi V pacemaker, coronary artery disease status post angioplasty, hypothyroidism, and chronic diastolic heart failure, who comes to hospital complaining of sustained palpitations and an episode of chest discomfort. The patient when she initially presented to the ER was in atrial fibrillation with poorly controlled ventricular rate and as the heart rate got controlled she felt better. A recent echocardiogram on her showed an ejection fraction of 55-60 percent. She also complains of bilateral mild ankle edema. The patient has underlying COPD and uses home O2 intermittently. An EKG shows atrial fibrillation with poorly controlled ventricular rate. Rhythm strips this morning show that she is in atrial fibrillation. Heart rate is poorly controlled. She is currently on Cardizem intravenously. She is on Xarelto for anticoagulation. She is on Solu-Medrol intravenously along with nebulizers. The patient's clinical presentation is due to a combination of problems including atrial fibrillation with poorly controlled ventricular rate and acute onset diastolic heart failure. She had chest pain coming in. We have 1 set of troponin that looks normal. I am going to obtain another set of troponin this morning. Her hemoglobin is normal at 11.9, potassium is 4.4, BUN and creatinine are within normal limits. PAST MEDICAL HISTORY: Significant for COPD, paroxysmal atrial fibrillation, chronic diastolic heart failure, hypothyroidism, permanent pacemaker and ablation. MEDICATIONS: Medications at home include Toprol-XL 100 mg daily, Cardizem 180 daily, Ventolin, Zyloprim, Xanax, Synthroid, Pulmicort, aspirin, Xarelto, K-Dur, Lasix, and Lipitor. ALLERGIES: CODEINE. FAMILY HISTORY: Negative for premature coronary artery disease. SOCIAL HISTORY: Negative for smoking, EtOH abuse, or drug abuse. REVIEW OF SYSTEMS: HEENT is unremarkable. Cardiac as described above. Respiratory as described above. GI negative. Genitourinary negative. Skin negative. Musculoskeletal negative for arthritis. Psychosocial negative. Endocrine/Derm negative. Constitutional/Oncological negative. EDUCATION OFFICER negative. Rest of the system review is not relevant. PHYSICAL EXAMINATION: On exam, patient is afebrile. Heart rate is 90 to 100 beats per minute. Blood pressure is 117/60 respiratory rate is 18 . O2 sat is 94% on 2 L. There is no jugular venous distention. Carotid upstroke is diminished, there is no bruit. Chest exam reveals good air entry. I do not hear any crackles or rhonchi. Heart exam reveals first and second heart sounds, irregular rhythm and a systolic murmur at the left lower sternal border. Abdomen is soft. Exam of extremities reveals bilateral ankle edema. ASSESSMENT: 1. Atrial fibrillation with poorly controlled ventricular rate. 2. Sick sinus syndrome status post Bi V pacemaker. 3. Acute exacerbation of chronic diastolic heart failure. 4. COPD. PLAN: I am going to give her a dose of IV Lasix this morning. Resume her beta blockers, continue the Cardizem for better rate control and once the heart rate is well controlled, we should be able to discharge her home and arrange outpatient followup. The initial plan was that we will either do AV donte ablation or another attempt at cryoablation and then we will address these as outpatient. GWENDOLYN / TRISTAN: [id number] /
[2019-09-02 13:33] LABS: T4, Free (Free Thyroxine) 1.58 ng/dL (0.78-2.19)
[2019-09-02] MEDS: HYDROcodone/APAP 5-325MG 1 EACH TAB PO PRN (13:51)
[2019-09-02] MEDS ORDERED: DILTIAZEM ORAL 60 MG TAB PO STA (14:12)
[2019-09-02 16:32] LABS: Glucose,Whole Blood 209 mg/dL (75-99)
[2019-09-02 20:27] LABS: Glucose,Whole Blood 195 mg/dL (75-99)
[2019-09-02] MEDS: guaiFENesin 600 MG TABLET.ER PO SCH (20:44)
[2019-09-02] MEDS: ATORVASTATIN 40 MG TAB PO SCH (20:45)
[2019-09-02] MEDS: ASPIRIN 81 MG PO SCH (20:45)
[2019-09-02] MEDS: ALLOPURINOL 100 MG TAB PO SCH (20:45)
[2019-09-02] MEDS: SYMBICORT 80-4.5 MCG INHALER INHALATION SCH (21:24)
--- NOTE | 2019-09-02 21:55 | PN ---
PROGRESS NOTE DATE OF SERVICE: 09/02/2019 This 74-year-old woman who was admitted with palpitation and chest pain also had some shortness of breath. The patient also possibly had COPD, acute exacerbation, and also had atrial fibrillation. Patient is on Cardizem. The patient is being closely monitored. Cardiology is following the patient closely. Venous Doppler on the leg was done which was negative. The patient also had previous history of sick sinus syndrome, on biventricular pacemaker. The venous Doppler study was negative for any DVT. Past medical history reviewed. REVIEW OF SYSTEMS: CARDIOVASCULAR SYSTEM: As mentioned earlier. RESPIRATORY SYSTEM: As mentioned earlier. GI: No nausea, vomiting, diarrhea. : No dysuria or retention. NERVOUS SYSTEM: No numbness, weakness. CURRENT MEDICATIONS: Reviewed. They include: 1. Tylenol p.r.n. 2. [place] 5 mg q.6 p.r.n. 3. DuoNeb q.i.d. and p.r.n. 4. Zyloprim 100 mg p.o. at bedtime. 5. Xanax 0.5 t.i.d. 6. Aspirin 81 mg. 7. Lipitor 40 mg. 8. Symbicort 180/4.5 two puffs b.i.d. 9. Rocephin 1 gram daily. 10.Vitamin D3. 11.Cardizem CD 240 mg p.o. daily. 12.Lasix 40 mg p.o. daily. 13.Mucinex. 14.NovoLog. 15.Synthroid 75 mcg p.o. daily. 16.Magnesium oxide. 17.Solu-Medrol 60 IV q.6 hours. 18.Toprol-XL. 19.Narcan. 20.Protonix. 21.K-Dur. 22.Xarelto. PHYSICAL EXAMINATION: Patient is alert, oriented x3. Pulse is 88, blood pressure 124/70, respiration 18, temperature 97.8. HEENT: Conjunctivae normal. NECK: No jugular venous distention. CARDIOVASCULAR SYSTEM: S1, S2 muffled. Ejection systolic murmur. RESPIRATORY SYSTEM: Breath sounds diminished at the bases. A few scattered rhonchi and crackles. ABDOMEN: Soft, obese, non-tender. No mass palpable. LEGS: Minimal edema. NERVOUS SYSTEM: Higher functions as mentioned earlier. Moves all 4 limbs. No focal motor or sensory deficit. LYMPHATICS: No lymph node palpable in neck, axillae or groin. SKIN: No ulcer, rash, bleeding. JOINTS: No active deforming arthropathy. LABS: CO2 is 19. TSH is 0.319 and free T4 is 1.58. Creatinine is 1.09. Coronavirus is negative. The chest x-ray, which was personally reviewed by me, showed chronic parenchymal changes; otherwise no acute changes. ASSESSMENT: 1. Atrial fibrillation with a fast ventricular rate, present on admission. 2. Chronic obstructive pulmonary disease, acute exacerbation, with acute ventricular bronchitis. 3. History of asthma. 4. History of coronary artery disease. 5. Hearing defects. 6. History of myocardial infarction. 7. History of degenerative joint disease. 8. History of pneumonia. 9. History of gout. 10.History of hiatal hernia. 11.History of macular degeneration. 12.History of osteoporosis. 13.History of cholecystectomy. 14.History of cardiac ablation. 15.History of coronary artery disease, stent. 16.Remote history of nicotine dependence. 17.Decreased carbon dioxide. 18.Acute renal failure with acute tubular necrosis, present on admission. 19.Reduced TSH and normal free T4. RECOMMENDATIONS AND DISCUSSION: In this 74-year-old woman who presented with multiple complex medical issues, we will monitor the patient closely, continue the current medications, continue with symptomatic treatment. Otherwise at this time I recommend to continue the bronchodilators, steroids, empiric antibiotics. Closely follow with Cardiology. Anticoagulants. Prognosis guarded because of multiple complex medical issues. Further recommendations to follow. MMODL / IJN: [id number] /
[2019-09-03 06:07] LABS: Glucose,Whole Blood 165 mg/dL (75-99)
[2019-09-03] MEDS: PANTOPRAZOLE 40 MG TABLET PO SCH (06:26)
[2019-09-03] MEDS: methylPREDNISolone SOD SUCCI 125 MG/2 ML VIAL IV SCH ×4 (06:26→23:32)
[2019-09-03] MEDS: LEVOTHYROXINE 75 MCG TAB PO SCH (06:26)
[2019-09-03] MEDS: INSULIN ASPART (NovoLOG) 100 UNIT/ML VIAL SQ SCH ×4 (06:27→20:38)
[2019-09-03 07:49] LABS: Potassium 4.6 mmol/L (3.5-5.1)
[2019-09-03] MEDS: IPRATROPIUM-ALBUTEROL 3 ML NEB INHALATION SCH ×4 (07:52→18:49)
[2019-09-03] MEDS: SYMBICORT 80-4.5 MCG INHALER INHALATION SCH ×2 (07:53→18:49)
[2019-09-03] MEDS ORDERED: NON FORMULARY DRUG (Fluticasone/Umeclidin/Vilanter [Trelegy Ellipta 100-62.5-25] 1 PUFF) INHALATION SCH (08:00)
[2019-09-03] MEDS ORDERED: FUROSEMIDE 40 MG TAB PO SCH (09:00)
[2019-09-03] MEDS ORDERED: DILTIAZEM CD 240 MG CAP.ER.24H PO SCH (09:00)
[2019-09-03] MEDS: guaiFENesin 600 MG TABLET.ER PO SCH ×2 (09:44→20:40)
[2019-09-03] MEDS: HYDROcodone/APAP 5-325MG 1 EACH TAB PO PRN ×3 (09:44→23:43)
[2019-09-03] MEDS: CHOLECALCIFEROL 1,000 UNIT TAB PO SCH (09:45)
[2019-09-03] MEDS: METOPROLOL SUCCINATE (ER) 100 MG TAB.ER.24H PO SCH (09:46)
[2019-09-03] MEDS: AMIODARONE 200 MG TAB PO SCH ×2 (09:46→20:40)
[2019-09-03] MEDS: RIVAROXABAN 20 MG TAB PO SCH (09:46)
[2019-09-03] MEDS: POTASSIUM CHLORIDE ER 20 MEQ TAB.ER PO SCH (09:46)
[2019-09-03] MEDS: MAGNESIUM OXIDE 400 MG TAB PO SCH (09:46)
[2019-09-03] MEDS: FUROSEMIDE 10 MG/ML 4 ML VIAL IV SCH ×2 (09:47→20:40)
[2019-09-03] MEDS: DILTIAZEM CD 180 MG CAP.ER.24H PO SCH (09:59)
[2019-09-03 12:10] LABS: Glucose,Whole Blood 151 mg/dL (75-99)
[2019-09-03] MEDS: SODIUM CHLORIDE 0.9% 1,000 ML IV SCH (12:18)
--- NOTE | 2019-09-03 12:28 | P.PN ---
Subjective Progress Note Date: 09/03/19 This is a 74-year-old female patient with history of paroxysmal atrial fibrillation status post prior ablation, status post bi-V pacemaker, coronary artery disease with prior PCI, hypothyroidism, chronic diastolic heart failure, who presented to the hospital with symptoms of sustained palpitations with ass ociated chest discomfort. She was found to be in atrial fibrillation with a rapid ventricular response. Patient does have underlying COPD and uses home O2 on occasion. Patient was seen in consultation by Dr. Currie, this morning continued to be in atrial fibrillation with a rapid rate of 120 to 1:30, she had been started on oral amiodarone. Patient had tolerated amiodarone in the past, but it had been discontinued because of bradycardia prior to the pacemaker implantation. This morning the patient also complained of feeling quite short of breath. Blood pressure 134/70 with a heart rate 120 to 1:30, 95% on 3 L of oxygen. Sodium 133, potassium 4.6, BUN 30, creatinine 1.0. Objective - Vital Signs Vital signs: Vital Signs Temp 97.8 F 09/03/19 09:33 Pulse 110 H 09/03/19 11:17 Resp 18 09/03/19 09:33 BP 134/78 09/03/19 09:33 Pulse Ox 95 09/03/19 09:33 Intake & Output 09/02/19 09/03/19 09/03/19 18:59 06:59 18:59 Intake Total 684.417 540 476 Output Total 500 Balance 684.417 40 476 Weight 99.8 kg Intake: Intake, IV Titration 324.417 Amount Diltiazem 125 mg In 74.417 Sodium Chloride 0.9% 100 ml @ 5 MG/HR 5 mls/hr IV .Q24H [facility] Rx#:[id number] Sodium Chloride 0.9% 1, 150 000 ml @ 20 mls/hr IV . Q24H [facility] Rx#:[id number] cefTRIAXone 1 gm In 100 Sodium Chloride 0.9% 50 ml @ 100 mls/hr IVPB Q24HR [facility] Rx#:[id number] Oral 360 540 476 Output: Urine 500 Other: Voiding Method Toilet Toilet # Voids 2 1 - Exam PHYSICAL EXAMINATION: GENERAL: 74-year-old female in no acute distress at the time of my examination HEENT: Head is atraumatic, normocephalic. Pupils equal, round. Sclera anicteric. Conjunctiva are clear. Mucous membranes of the mouth are moist. Neck is supple. There is no elevated jugular venous pressure. No carotid bruit is heard. HEART EXAMINATION: Heart S1 and S2 irregularly irregular a systolic murmur is heard CHEST EXAMINATION: lungs reveal diminished air entry to the bases bilaterally, fine rales heard to the bases ABDOMEN: Soft, nontender. Bowel sounds are heard. No organomegaly noted. EXTREMITIES: 2+ peripheral pulses with trace evidence of peripheral edema and no calf tenderness noted. NEUROLOGIC patient is awake, alert and oriented X3. . - Labs CBC & Chem 7: 09/01/19 18:05 09/03/19 06:41 Labs: Abnormal Lab Results - Last 24 Hours (Table) 09/02/19 09/02/19 09/02/19 Range/Units 07:09 12:21 16:30 Sodium (137-145) mmol/L Carbon Dioxide (22-30) mmol/L BUN (7-17) mg/dL Glucose (74-99) mg/dL POC Glucose (mg/dL) 159 H 209 H (75-99) mg/dL TSH 0.319 L (0.465-4.680) mIU/L 09/02/19 09/03/19 09/03/19 Range/Units 20:26 06:05 06:41 Sodium 133 L (137-145) mmol/L Carbon Dioxide 16 L (22-30) mmol/L BUN 30 H (7-17) mg/dL Glucose 152 H (74-99) mg/dL POC Glucose (mg/dL) 195 H 165 H (75-99) mg/dL TSH (0.465-4.680) mIU/L 09/03/19 Range/Units 12:09 Sodium (137-145) mmol/L Carbon Dioxide (22-30) mmol/L BUN (7-17) mg/dL Glucose (74-99) mg/dL POC Glucose (mg/dL) 151 H (75-99) mg/dL TSH (0.465-4.680) mIU/L Assessment and Plan Plan: Assessment and plan #1 atrial fibrillation with rapid ventricular response, persistent #2 history of prior atrial fibrillation ablation, with the intention to perform subsequent ablation #3 6 sinus syndrome status post pacemaker, bi V #4 coronary artery disease with prior PCI #5 hypothyroidism #6 diastolic congestive heart failure acute on chronic #7 COPD Plan Patient will be started on amiodarone, we will also increase her dose of Cardizem. Patient will be initiated today on IV Lasix, we'll continue to monitor the intake and output along with daily weights and daily lytes BUN and creatinine. Continue to monitor patient's heart rate as well. DNP note has been reviewed, I agree with a documented findings and plan of care. Patient was seen and examined.
[2019-09-03 16:44] LABS: Glucose,Whole Blood 136 mg/dL (75-99)
[2019-09-03 20:03] LABS: Glucose,Whole Blood 180 mg/dL (75-99)
[2019-09-03] MEDS: SENNOSIDES 8.6 MG TAB PO SCH (20:39)
[2019-09-03] MEDS: ATORVASTATIN 40 MG TAB PO SCH (20:39)
[2019-09-03] MEDS: ASPIRIN 81 MG PO SCH (20:39)
[2019-09-03] MEDS: ALLOPURINOL 100 MG TAB PO SCH (20:40)
--- NOTE | 2019-09-03 22:26 | PN ---
PROGRESS NOTE DATE OF SERVICE: 09/03/2019 This 74-year-old woman who was admitted with atrial fibrillation with a fast ventricular rate also had COPD, acute exacerbation. The patient is being closely monitored at this time. The venous Doppler showed no evidence of DVT. Patient is on IV steroids and bronchodilators. Cardiology is following the patient closely. Cardiology recommended Cardizem as well as amiodarone. No chest pain. No palpitations. Past medical history reviewed. REVIEW OF SYSTEMS: CARDIOVASCULAR SYSTEM: Occasional chest pain; possibly musculoskeletal of pleuritic, noted. RESPIRATORY SYSTEM: As mentioned earlier. GI: No nausea, vomiting. : No dysuria or retention. NERVOUS SYSTEM: No numbness, weakness. CURRENT MEDICATIONS: Reviewed. They include: 1. Tylenol p.r.n. 2. [place]. 3. DuoNeb. 4. Zyloprim. 5. Xanax. 6. Cordarone. 7. Aspirin. 8. Lipitor. 9. Symbicort. 10.Rocephin. 11.Cardizem. 12.Lasix. 13.Mucinex. 14.Synthroid. 15.Magnesium oxide. 16.Solu-Medrol 60 IV q.6. 17.Toprol-XL. 18.Protonix. 19.Xarelto. 20.Senokot. PHYSICAL EXAMINATION: Patient is alert, oriented x3. Pulse is 118, irregular. Blood pressure is 109/64, respiration 19, temperature 97.6, pulse ox 96% on 3 L. HEENT: Conjunctivae normal. NECK: No jugular venous distention. CARDIOVASCULAR SYSTEM: S1, S2 irregular, tachycardic. RESPIRATORY SYSTEM: Breath sounds diminished at the bases. Bilateral scattered rhonchi and crackles. Breathing efforts increased. ABDOMEN: Soft, non-tender. LEGS: No edema. No swelling. NERVOUS SYSTEM: No focal deficit. LABS: Accu-Cheks 152, 151. Sodium 133. Other labs are noted. ASSESSMENT: 1. Atrial fibrillation with fast ventricular rate, present on admission. 2. Chronic obstructive pulmonary disease, acute exacerbation, with acute purulent tracheobronchitis. 3. Congestive heart failure, acute exacerbation, with acute on chronic diastolic dysfunction. 4. History of asthma. 5. History of coronary artery disease. 6. History of hearing defect. 7. History of myocardial infarction. 8. History of cardiac ablation for atrial fibrillation. 9. History of degenerative joint disease. 10.History of pneumonia. 11.History of gout. 12.History of hiatal hernia. 13.History of macular degeneration. 14.History of osteoporosis. 15.History of cholecystectomy. 16.History of coronary artery disease/stent. 17.Remote history of nicotine dependence. 18.History of decreased carbon dioxide. 19.Acute renal failure with acute tubular necrosis, present on admission. 20.Reduced TSH with normal free T4. RECOMMENDATIONS AND DISCUSSION: In this 74-year-old woman who presented with multiple complex medical issues, we will monitor the patient closely, continue the current medications, continue with symptomatic treatment, continue with the bronchodilators, continue with steroids. Monitor the blood sugars closely. The patient has also received one dose of Lasix and was on empiric Lasix as well. The most recent chest x-ray, which was done in the ER and was reviewed, showed some evidence of CHF. Will continue to monitor. Prognosis guarded. Further recommendations to follow. The patient had some prominent right hilum and the patient did have a chest CT in 2018 which showed stable bilateral nodularity. Will repeat the chest CT without contrast. MMODL / IJN: [id number] /
[2019-09-04] MEDS: methylPREDNISolone SOD SUCCI 125 MG/2 ML VIAL IV SCH ×4 (06:02→21:24)
[2019-09-04] MEDS: LEVOTHYROXINE 75 MCG TAB PO SCH (06:02)
[2019-09-04 06:07] LABS: Glucose,Whole Blood 167 mg/dL (75-99)
[2019-09-04] MEDS: PANTOPRAZOLE 40 MG TABLET PO SCH (06:51)
[2019-09-04] MEDS: INSULIN ASPART (NovoLOG) 100 UNIT/ML VIAL SQ SCH ×4 (06:51→21:30)
[2019-09-04] MEDS: IPRATROPIUM-ALBUTEROL 3 ML NEB INHALATION SCH ×4 (07:20→20:05)
[2019-09-04] MEDS: SYMBICORT 80-4.5 MCG INHALER INHALATION SCH ×2 (07:21→20:06)
[2019-09-04 07:40] LABS: Calcium 9.2 mg/dL (8.4-10.2); Potassium 4.6 mmol/L (3.5-5.1)
--- NOTE | 2019-09-04 08:50 | CT ---
EXAMINATION TYPE: CT chest wo con DATE OF EXAM: 09/04/2019 COMPARISON: 08/21/2017 HISTORY: 74-year-old female History of lung nodule TECHNIQUE: Contiguous axial scanning of the chest without IV contrast. Coronal and sagittal reconstru ctions performed. CT DLP: 567.6 mGycm Automated exposure control for dose reduction was used. FINDINGS: Left anterior chest wall pacemaker generator with right atrial and 2 right ventricular leads. Heart borderline enlarged. No pericardial effusion. Three-vessel coronary artery calcifications are p resent. Mild to moderate atherosclerotic arch calcifications with bovine configuration to the aortic arch. Large caliber to the main right and left pulmonary arteries measuring 3.3 and 3.47 m, respectively, s uggesting underlying pulmonary arterial hypertension. Some calcified lymph nodes at the left hilum compatible prior granulomatous disease. Enlarged right paratracheal lymph node at 1.2 cm versus 7 mm, previously. Precarinal lymph node at 1.6 cm versus 1.5 cm, previously. Posterior right hilar lymph node at 8 mm, unchanged. Suspect possible 2.3 x 1.8 cm nodule or lymph node at the right infrahilar versus 1.6 x 1.2 cm, previ ously. Moderate emphysema. 7 mm anterior right middle lobe pulmonary nodule, axial image 29 is unchanged. 4 mm peripheral left basilar pulmonary nodule, axial image 37 is unchanged. 4 mm right basilar pulmonary nodule, axial image 37 is unchanged. Some mild septal thickening at the peripheral right base is unchanged. A 5 mm right midlung pulmonary nodule, axial image 32 may be new. No consolidation or pleural effusion. Tiny hiatal hernia. Stable 2.7 cm right adrenal mass suggestive of a benign adrenal adenoma. Bones: Moderate degenerative disc disease visualized upper lumbar spine. Anterior endplate spondylosi s lower thoracic spine. IMPRESSION: 1. COPD WITH MODERATE EMPHYSEMA, PULMONARY ARTERIAL HYPERTENSION, CAD, AND PRIOR GRANULOMATOUS DISEAS E. 2. SCATTERED PULMONARY NODULES MEASURING UP TO 7 MM ARE LARGELY UNCHANGED FROM 08/21/2017. A 5 MM NODU LE AT THE RIGHT MIDLUNG MAY BE NEW. 3. CORRELATE FOR ANY KNOWN UNDERLYING DIAGNOSIS (SUCH SARCOIDOSIS) GIVEN SOME INTERSTITIAL CHANGES AND A FEW ENLARGED MEDIASTINAL/RIGHT HILAR LYMPH NODES MEASURING UP TO 1.6 CM. A COUPLE OF THESE HAV E INCREASED IN SIZE FROM 2018 AND THERE MAY BE AN UNDERLYING LARGE NODULE OR LYMPH NODE AT THE RIGHT HILUM MEASURING 2.3 X 1.8 CM. SYSTEMIC FUNGAL/MYCOBACTERIAL INFECTION AND CONNECTIVE TISSUE DISORDER ARE ADDITIONAL DIFFERENTIAL CONSIDERATIONS. AN INDOLENT LYMPHOMA IS CONSIDERED LESS LIKELY BUT STILL A POSSIBILITY. 3 MONTH FOLLOW UP WITH CONTRAST ENHANCED CT CHEST RECOMMENDED TO REASSESS THE RIGHT-SI DED 5 MM NODULE AND THESE LYMPH NODES.
[2019-09-04] MEDS: METOPROLOL SUCCINATE (ER) 100 MG TAB.ER.24H PO SCH (08:59)
[2019-09-04] MEDS: FUROSEMIDE 10 MG/ML 4 ML VIAL IV SCH (08:59)
[2019-09-04] MEDS: RIVAROXABAN 20 MG TAB PO SCH (09:00)
[2019-09-04] MEDS: AMIODARONE 200 MG TAB PO SCH ×2 (09:00→21:24)
[2019-09-04] MEDS: DILTIAZEM CD 180 MG CAP.ER.24H PO SCH (09:00)
[2019-09-04] MEDS ORDERED: DILTIAZEM CD 180 MG CAP.ER.24H PO SCH (09:00)
[2019-09-04] MEDS: SENNOSIDES 8.6 MG TAB PO SCH (09:00)
[2019-09-04] MEDS: POTASSIUM CHLORIDE ER 20 MEQ TAB.ER PO SCH (09:01)
[2019-09-04] MEDS: CHOLECALCIFEROL 1,000 UNIT TAB PO SCH (09:01)
[2019-09-04] MEDS: MAGNESIUM OXIDE 400 MG TAB PO SCH (09:01)
[2019-09-04] MEDS: guaiFENesin 600 MG TABLET.ER PO SCH ×2 (09:15→21:23)
[2019-09-04 12:10] LABS: Glucose,Whole Blood 196 mg/dL (75-99)
[2019-09-04] MEDS: HYDROcodone/APAP 5-325MG 1 EACH TAB PO PRN (12:14)
--- NOTE | 2019-09-04 14:43 | P.PN ---
Subjective Progress Note Date: 09/04/19 This is a 74-year-old female patient with history of paroxysmal atrial fibrillation status post prior ablation, status post bi-V pacemaker, coronary artery disease with prior PCI, hypothyroidism, chronic diastolic heart failure, who presented to the hospital with symptoms of sustained palpitations with ass ociated chest discomfort. She was found to be in atrial fibrillation with a rapid ventricular response. Patient does have underlying COPD and uses home O2 on occasion. Patient was seen in consultation by Dr. Currie, this morning continued to be in atrial fibrillation with a rapid rate of 120 to 1:30, she had been started on oral amiodarone. Patient had tolerated amiodarone in the past, but it had been discontinued because of bradycardia prior to the pacemaker implantation. This morning the patient also complained of feeling quite short of breath. Blood pressure 134/70 with a heart rate 120 to 1:30, 95% on 3 L of oxygen. Sodium 133, potassium 4.6, BUN 30, creatinine 1.0. 09/04/2019 Patient seen and examined this morning, does state that her breathing is improving, continues to have a heart rate in the 1 teens to 120 range. Blood pressure 124/60. 94% on 3 L. Sodium 134, potassium 4.6, BUN 48, creatinine 1.5. Objective - Vital Signs Vital signs: Vital Signs Temp 97.5 F L 09/04/19 08:00 Pulse 126 H 09/04/19 12:00 Resp 18 09/04/19 12:00 BP 124/66 09/04/19 12:00 Pulse Ox 94 L 09/04/19 12:00 Intake & Output 09/03/19 09/04/19 09/04/19 18:59 06:59 18:59 Intake Total 892 800 240 Output Total 1300 1302 Balance -408 -502 240 Weight 99.3 kg 100.9 kg Intake: Oral 892 800 240 Output: Urine 1300 1302 Other: Voiding Method Toilet Toilet Toilet # Voids 4 1 0 - Exam PHYSICAL EXAMINATION: GENERAL: 74-year-old female in no acute distress at the time of my examination HEENT: Head is atraumatic, normocephalic. Pupils equal, round. Sclera anicteric. Conjunctiva are clear. Mucous membranes of the mouth are moist. Neck is supple. There is no elevated jugular venous pressure. No carotid bruit is heard. HEART EXAMINATION: Heart S1 and S2 irregularly irregular a systolic murmur is heard CHEST EXAMINATION: lungs reveal improvement in air entry to the bases bilaterally, fine rales heard to the bases ABDOMEN: Soft, nontender. Bowel sounds are heard. No organomegaly noted. EXTREMITIES: 2+ peripheral pulses with trace evidence of peripheral edema and no calf tenderness noted. NEUROLOGIC patient is awake, alert and oriented X3. . - Labs CBC & Chem 7: 09/01/19 18:05 09/04/19 06:49 Labs: Abnormal Lab Results - Last 24 Hours (Table) 09/03/19 09/03/19 09/04/19 Range/Units 16:43 20:02 06:05 Sodium (137-145) mmol/L Carbon Dioxide (22-30) mmol/L BUN (7-17) mg/dL Creatinine (0.52-1.04) mg/dL Glucose (74-99) mg/dL POC Glucose (mg/dL) 136 H 180 H 167 H (75-99) mg/dL 09/04/19 09/04/19 Range/Units 06:49 12:07 Sodium 134 L (137-145) mmol/L Carbon Dioxide 21 L (22-30) mmol/L BUN 48 H (7-17) mg/dL Creatinine 1.52 H (0.52-1.04) mg/dL Glucose 155 H (74-99) mg/dL POC Glucose (mg/dL) 196 H (75-99) mg/dL Assessment and Plan Plan: Assessment and plan #1 atrial fibrillation with rapid ventricular response, persistent #2 history of prior atrial fibrillation ablation, with the intention to perform subsequent ablation #3 6 sinus syndrome status post pacemaker, bi V #4 coronary artery disease with prior PCI #5 hypothyroidism #6 diastolic congestive heart failure acute on chronic #7 COPD Plan From cardiology's perspective, we'll discontinue the IV Lasix and from tomorrow start the patient on oral diuretics. Continue amiodarone 200 mg one tablet by mouth twice a day, Cardizem CD 360 daily and Toprol 100 mg daily. Check lytes BUN and creatinine in the morning. DNP note has been reviewed, I agree with a documented findings and plan of care. Patient was seen and examined.
[2019-09-04] MEDS: SODIUM CHLORIDE 0.9% 1,000 ML IV SCH (16:45)
[2019-09-04 17:06] LABS: Glucose,Whole Blood 121 mg/dL (75-99)
[2019-09-04] MEDS: FUROSEMIDE 40 MG TAB PO SCH (17:06)
[2019-09-04 20:09] LABS: Glucose,Whole Blood 156 mg/dL (75-99)
--- NOTE | 2019-09-04 20:26 | PN ---
PROGRESS NOTE DATE OF SERVICE: 09/04/2019 This 74-year-old woman who was admitted with atrial fibrillation with fast ventricular rate also had COPD, acute exacerbation. The patient is being closely monitored. The patient is also receiving diuretics. Chest CT scan was also done which showed COPD with multiple nodular lesions. The patient was seeing Dr. Leary, who has been consulted at this time. No chest pain. No palpitations. No fever. PHYSICAL EXAMINATION: Alert and oriented x3. Pulse is 111, irregular, blood pressure 128/62, respiration 18, temperature 97.9, pulse ox 96% on 3 L. HEENT: Conjunctivae normal. NECK: No jugular venous distention. CARDIOVASCULAR SYSTEM: S1, S2 muffled. RESPIRATORY SYSTEM: Breath sounds diminished at the bases. Bilateral scattered rhonchi and crackles. Expiratory wheezing. ABDOMEN: Soft, non-tender. NERVOUS SYSTEM: No focal deficit. LABS: Sodium is 134 and creatinine is 1.52. ASSESSMENT: 1. Atrial fibrillation with fast ventricular rate, present on admission. 2. Chronic obstructive pulmonary disease, acute exacerbation, with acute purulent tracheobronchitis. 3. Congestive heart failure, acute exacerbation, with acute on chronic diastolic dysfunction. 4. Increased creatinine with acute renal failure. 5. History of asthma. 6. History of coronary artery disease. 7. Multiple nodular lesions in the lung which are rather chronic and stable. 8. History of hearing defects. 9. History of myocardial infarction. 10.History of cardiac ablation for atrial fibrillation. 11.History of degenerative joint disease. 12.History of pneumonia. 13.History of gout. 14.History of hiatal hernia. 15.History of macular degeneration. 16.History of osteoporosis. 17.History of cholecystectomy. 18.History of coronary artery disease/stent. 19.Remote history of nicotine dependence. 20.History of decreased carbon dioxide. 21.Acute renal failure from acute tubular necrosis, present on admission. 22.Reduce TSH and normal free T4. 23.FULL CODE. RECOMMENDATIONS AND DISCUSSION: I recommend to continue current medications, continue with the monitoring, symptomatic treatment. Continue with the bronchodilators. Continue with steroids. Otherwise, we will monitor the creatinine closely, which has gone up to 1.52. Consider cutting back the IV Lasix. Repeat labs. Closely follow with multiple consultants. Prognosis guarded. Further recommendations to follow. Rate control. MMODL / IJN: [id number] /
[2019-09-04] MEDS: ASPIRIN 81 MG PO SCH (21:23)
[2019-09-04] MEDS: ATORVASTATIN 40 MG TAB PO SCH (21:23)
[2019-09-04] MEDS: ALLOPURINOL 100 MG TAB PO SCH (21:24)
[2019-09-05] MEDS: LEVOTHYROXINE 75 MCG TAB PO SCH (04:47)
[2019-09-05] MEDS: methylPREDNISolone SOD SUCCI 125 MG/2 ML VIAL IV SCH ×3 (04:47→18:03)
[2019-09-05 06:06] LABS: Glucose,Whole Blood 156 mg/dL (75-99)
[2019-09-05] MEDS: INSULIN ASPART (NovoLOG) 100 UNIT/ML VIAL SQ SCH ×4 (06:29→20:26)
[2019-09-05] MEDS: PANTOPRAZOLE 40 MG TABLET PO SCH (07:05)
[2019-09-05] MEDS: IPRATROPIUM-ALBUTEROL 3 ML NEB INHALATION SCH ×4 (07:50→20:38)
[2019-09-05] MEDS: SYMBICORT 80-4.5 MCG INHALER INHALATION SCH ×2 (07:50→20:38)
[2019-09-05] MEDS: guaiFENesin 600 MG TABLET.ER PO SCH ×2 (09:17→19:42)
[2019-09-05] MEDS: CHOLECALCIFEROL 1,000 UNIT TAB PO SCH (09:17)
[2019-09-05] MEDS: MAGNESIUM OXIDE 400 MG TAB PO SCH (09:17)
[2019-09-05] MEDS: AMIODARONE 200 MG TAB PO SCH ×2 (09:17→19:42)
[2019-09-05] MEDS: DILTIAZEM CD 180 MG CAP.ER.24H PO SCH (09:17)
[2019-09-05] MEDS: POTASSIUM CHLORIDE ER 20 MEQ TAB.ER PO SCH (09:17)
[2019-09-05] MEDS: RIVAROXABAN 20 MG TAB PO SCH (09:17)
[2019-09-05] MEDS: SENNOSIDES 8.6 MG TAB PO SCH (09:17)
[2019-09-05] MEDS: METOPROLOL SUCCINATE (ER) 100 MG TAB.ER.24H PO SCH (09:17)
[2019-09-05] MEDS: FUROSEMIDE 40 MG TAB PO SCH ×2 (09:18→15:39)
[2019-09-05 11:56] LABS: Glucose,Whole Blood 139 mg/dL (75-99)
--- NOTE | 2019-09-05 12:28 | P.PN ---
Subjective Progress Note Date: 09/05/19 This is a 74-year-old female patient with history of paroxysmal atrial fibrillation status post prior ablation, status post bi-V pacemaker, coronary artery disease with prior PCI, hypothyroidism, chronic diastolic heart failure, who presented to the hospital with symptoms of sustained palpitations with ass ociated chest discomfort. She was found to be in atrial fibrillation with a rapid ventricular response. Patient does have underlying COPD and uses home O2 on occasion. Patient was seen in consultation by Dr. Currie, this morning continued to be in atrial fibrillation with a rapid rate of 120 to 1:30, she had been started on oral amiodarone. Patient had tolerated amiodarone in the past, but it had been discontinued because of bradycardia prior to the pacemaker implantation. This morning the patient also complained of feeling quite short of breath. Blood pressure 134/70 with a heart rate 120 to 1:30, 95% on 3 L of oxygen. Sodium 133, potassium 4.6, BUN 30, creatinine 1.0. 09/04/2019 Patient seen and examined this morning, does state that her breathing is improving, continues to have a heart rate in the 1 teens to 120 range. Blood pressure 124/60. 94% on 3 L. Sodium 134, potassium 4.6, BUN 48, creatinine 1.5. 09/05/2019 Patient seen and examined this morning, she feels well this morning but states that through the night last night she had a severe pain in her upper abdomen ep igastric area, in the area where her hiatal hernia is. They did perform an EKG at that time which did not show any significant change. Overall her heart rate today is improving, around 108 this morning. Her breathing is stable and her lungs are clear today. Blood pressure 120/70 with a heart rate of 03/22/1994 percent on 3 L. Objective - Vital Signs Vital signs: Vital Signs Temp 97.7 F 09/05/19 08:00 Pulse 110 H 09/05/19 11:17 Resp 20 09/05/19 08:00 BP 119/78 09/05/19 08:00 Pulse Ox 95 09/05/19 08:00 Intake & Output 09/04/19 09/05/19 09/05/19 18:59 06:59 18:59 Intake Total 600 240 Output Total 1500 Balance -900 240 Weight 100.9 kg 100.7 kg Intake: Oral 600 240 Output: Urine 1500 Other: Voiding Method Toilet Toilet # Voids 0 2 - Exam PHYSICAL EXAMINATION: GENERAL: 74-year-old female in no acute distress at the time of my examination HEENT: Head is atraumatic, normocephalic. Pupils equal, round. Sclera anicteric. Conjunctiva are clear. Mucous membranes of the mouth are moist. Neck is supple. There is no elevated jugular venous pressure. No carotid bruit is heard. HEART EXAMINATION: Heart S1 and S2 irregularly irregular a systolic murmur is heard CHEST EXAMINATION: lungs reveal improvement in air entry to the bases bilaterally, fine rales heard to the bases ABDOMEN: Soft, nontender. Bowel sounds are heard. No organomegaly noted. EXTREMITIES: 2+ peripheral pulses with trace evidence of peripheral edema and no calf tenderness noted. NEUROLOGIC patient is awake, alert and oriented X3. . - Labs CBC & Chem 7: 09/01/19 18:05 09/04/19 06:49 Labs: Abnormal Lab Results - Last 24 Hours (Table) 09/04/19 09/04/19 09/05/19 Range/Units 17:05 20:07 06:05 POC Glucose (mg/dL) 121 H 156 H 156 H (75-99) mg/dL 09/05/19 Range/Units 11:54 POC Glucose (mg/dL) 139 H (75-99) mg/dL Assessment and Plan Plan: Assessment and plan #1 atrial fibrillation with rapid ventricular response, persistent #2 history of prior atrial fibrillation ablation, with the intention to perform subsequent ablation #3 6 sinus syndrome status post pacemaker, bi V #4 coronary artery disease with prior PCI #5 hypothyroidism #6 diastolic congestive heart failure acute on chronic #7 COPD Plan From cardiology's perspective, we will continue with current dose of beta justin, calcium channel justin, and amiodarone. Continue Protonix 40 mg daily. Plan on possible discharge home in 24 hours if stable. DNP note has been reviewed, I agree with a documented findings and plan of care. Patient was seen and examined.
--- NOTE | 2019-09-05 14:47 | P.CNPUL ---
History of Present Illness Consult date: 09/04/19 Reason for consult: dyspnea Chief complaint: Abnormal CAT scan of the chest History of present illness: This is a 74-year-old female with history of chronic persistent asthma and COPD patient has a long-standing history of A. fib with RVR she was status post ablation a year ago came into the hospital with A. fib RVR with increased swelling and shortness of breath, patient also has a biventricular pacemaker with history of prior coronary artery disease and stent placement, patient had a CAT scan of the chest done shows a mildly enlarged lymphadenopathy with some calcification suggestive of prior recurrent erythematous disease, the right paratracheal lymph node is 1.2 cm slightly increase from 7 cm, precarinal is 1.6 cm up from 1.5 cm, right posterior hilar is 8 mm which is unchanged, 2.31.8 nodule/lymph nodes and right infrahilar region now 2.31.8 increase from 1.6x1.2, I discussed with her at length patient is not willing for biopsy at this time, but agreeable for follow up PET scan as outpatient Review of Systems All systems: negative Past Medical History Past Medical History: Atrial Fibrillation, Asthma, Coronary Artery Disease (CAD), Cancer, COPD, Eye Disorder, Hearing Disorder / Deafness, Myocardial Infarction (LA), Osteoarthritis (OA), Pneumonia, Thyroid Disorder Additional Past Medical History / Comment(s): See Dr Trimble's H&P, Gout, hiatal hernia, Macular Degeneration, Skin Cancer, degenerative disc disease, osteoporosis. UTI 07/01/19. Last Myocardial Infarction Date:: 2011 History of Any Multi-Drug Resistant Organisms: None Reported Past Surgical History: Ablation, Cholecystectomy, Heart Catheterization With Stent, Hysterectomy, Orthopedic Surgery, Pacemaker, Tonsillectomy Additional Past Surgical History / Comment(s): Right shoulder, left wrist. Thyroid Nodule removed, Cataracts, LOOP RECORDER-11/23/17; CHRIO ABLATION 03/08/18 WITH CARDIOVERSION Past Anesthesia/Blood Transfusion Reactions: No Reported Reaction Date of Last Stent Placement:: 2011 Type of Cardiac Device: Loop Device Placement Date:: 11/23/17 Past Psychological History: No Psychological Hx Reported Smoking Status: Former smoker Past Alcohol Use History: None Reported Additional Past Alcohol Use History / Comment(s): started smoking at age 15(1961) and quit 2006, smoked 2ppd Past Drug Use History: None Reported - Past Family History Mother Family Medical History: Cancer, Congestive Heart Failure (CHF), Myocardial In farction (LA), Pneumonia, Pulmonary Embolus Additional Family Medical History / Comment(s): breast CA Father Family Medical History: CVA/TIA, Myocardial Infarction (LA) Medications and Allergies Home Medications Medication Instructions Recorded Confirmed Type Albuterol Sulfate [Ventolin HFA] 2 puff INHALATION RT-QID PRN 08/11/13 09/01/19 History Vit C/E/Zn/Coppr/Lutein/Zeaxan 1 cap PO BID 03/02/15 09/01/19 History [Preservision Areds 2 Softgel] Atorvastatin [Lipitor] 40 mg PO HS #30 tab 03/04/15 09/01/19 Rx Cholecalciferol [Vitamin D3 (25 1,000 unit PO DAILY 08/30/17 09/01/19 History Mcg = 1000 Iu)] Magnesium Oxide [Mag-Ox] 250 mg PO DAILY 08/30/17 09/01/19 History guaiFENesin [Mucinex] 600 mg PO BID 08/30/17 09/01/19 History Rivaroxaban [Xarelto] 20 mg PO DAILY 09/11/17 09/01/19 History Allopurinol [Zyloprim] 100 mg PO HS 10/22/18 09/01/19 History Levothyroxine Sodium [Synthroid] 75 mcg PO DAILY@0600 10/22/18 09/01/19 History Potassium Chloride ER [K-Dur 20] 20 meq PO DAILY 10/22/18 09/01/19 History Fluticasone/Umeclidin/Vilanter 1 puff INHALATION RT-DAILY 07/01/19 09/01/19 History [Trelegy Ellipta 100-62.5-25] Ipratropium Nebulized [Atrovent 0.5 mg INHALATION RT-TID 07/01/19 09/01/19 History Nebulized 0.2 MG/ML] Metoprolol Succinate (ER) [Toprol 100 mg PO DAILY #90 tab 07/18/19 09/01/19 Rx XL] Aspirin [[place] Aspirin EC] 81 mg PO HS 08/09/19 09/01/19 History Budesonide [Pulmicort] 0.5 mg INHALATION RT-BID 08/09/19 09/01/19 History ALPRAZolam [Xanax] 0.25 mg PO BID PRN 09/01/19 09/01/19 History Amiodarone [Cordarone] 200 mg PO BID 30 Days #30 tab 09/05/19 Rx Cefuroxime Axetil [Ceftin] 500 mg PO BID 3 Days #6 tab 09/05/19 Rx Diltiazem Cd [Cardizem CD] 360 mg PO DAILY 30 Days #60 09/05/19 Rx cap.er.24h Furosemide [Lasix] 40 mg PO BID #30 tablet 09/05/19 09/01/19 Rx Ipratropium-Albuterol Nebulize 3 ml INHALATION RT-QID 30 Days #90 09/05/19 Rx [Duoneb 0.5 mg-3 mg/3 ml Soln] ml Pantoprazole [Protonix] 40 mg PO AC-BRKFST 30 Days #60 09/05/19 Rx tablet. Sennosidejose [Senokot] 8.6 mg PO DAILY 30 Days #30 tab 09/05/19 Rx predniSONE 10 mg PO DIRECTED #30 tab 09/05/19 Rx Allergies Allergy/AdvReac Type Severity Reaction Status Date / Time codeine Allergy Itching Verified 09/01/19 20:52 Physical Exam Vitals: Vital Signs Temp Pulse Pulse Resp BP Pulse Ox 09/04/19 12:00 126 H 18 124/66 94 L 09/04/19 11:59 120 H 09/04/19 11:49 88 09/04/19 08:00 97.5 F L 125 H 18 135/62 94 L 09/04/19 07:34 114 H 09/04/19 07:21 112 H 09/04/19 04:00 136 H 20 103/69 93 L 09/04/19 00:00 106 H 22 114/86 94 L 09/03/19 19:34 97.6 F 119 H 19 109/65 96 09/03/19 19:02 120 H 18 09/03/19 18:49 122 H 18 09/03/19 16:40 97.3 F L 104 H 20 130/75 95 09/03/19 15:17 132 H 18 09/03/19 15:07 130 H 20 Intake and Output 09/03/19 09/04/19 09/04/19 22:59 06:59 14:59 Intake Total 236 800 240 Output Total 950 1302 Balance -714 -502 240 Intake: Oral 236 800 240 Output: Urine 950 1302 Other: Voiding Method Toilet Toilet Toilet # Voids 4 1 0 Weight 99.3 kg 100.9 kg - Constitutional General appearance: cooperative, disheveled, morbidly obese - EENT Eyes: EOMI, PERRLA Ears: bilateral: normal - Neck Neck: normal ROM Carotids: bilateral: upstroke normal Thyroid: bilateral: normal size - Respiratory Respiratory: bilateral: diminished, rales (Both bases) - Cardiovascular Heart sounds: normal: S1, S2 - Gastrointestinal General gastrointestinal: normal bowel sounds - Integumentary Integumentary: normal turgor - Neurologic Neurologic: CNII-XII intact - Musculoskeletal Musculoskeletal: gait normal, generalized weakness, strength equal bilaterally - Psychiatric Psychiatric: A&O x's 3, appropriate affect, intact judgment & insight Results - Laboratory Findings CBC and BMP: 09/01/19 18:05 09/04/19 06:49 PT/INR, D-dimer PT 11.8 sec (9.0-12.0) 09/01/19 18:05 INR 1.2 (<1.2) H 09/01/19 18:05 Abnormal lab findings: Abnormal Labs 09/01/19 09/01/19 09/01/19 18:05 18:05 18:05 RDW 17.6 H INR 1.2 H Sodium 136 L Chloride Carbon Dioxide BUN 23 H Creatinine 1.09 H Glucose POC Glucose (mg/dL) TSH 09/02/19 09/02/19 09/02/19 05:54 07:09 07:09 RDW INR Sodium Chloride 110 H Carbon Dioxide 19 L BUN 19 H Creatinine Glucose 153 H POC Glucose (mg/dL) 145 H TSH 0.319 L 09/02/19 09/02/19 09/02/19 12:21 16:30 20:26 RDW INR Sodium Chloride Carbon Dioxide BUN Creatinine Glucose POC Glucose (mg/dL) 159 H 209 H 195 H TSH 09/03/19 09/03/19 09/03/19 06:05 06:41 12:09 RDW INR Sodium 133 L Chloride Carbon Dioxide 16 L BUN 30 H Creatinine Glucose 152 H POC Glucose (mg/dL) 165 H 151 H TSH 09/03/19 09/03/19 09/04/19 16:43 20:02 06:05 RDW INR Sodium Chloride Carbon Dioxide BUN Creatinine Glucose POC Glucose (mg/dL) 136 H 180 H 167 H TSH 09/04/19 09/04/19 06:49 12:07 RDW INR Sodium 134 L Chloride Carbon Dioxide 21 L BUN 48 H Creatinine 1.52 H Glucose 155 H POC Glucose (mg/dL) 196 H TSH - Diagnostic Findings Chest x-ray: report reviewed, image reviewed CT scan - chest: report reviewed, image reviewed (Finding as noted above) Assessment and Plan Assessment: Mediastinal and hilar lymphadenopathy slightly progressed compared to 2018 Right bilateral hilar lymph nodes/nodule A. fib with RVR Morbid obesity Chronic persistent severe asthma Possible sleep disorder breathing and sleep apnea Coronary artery disease Hypertension hypertensive cardiovascular disease Plan: Continue breathing treatment and steroids for now Continue gentle diuresis Optimize medical management maximal for A. fib RVR Will get a PET scan as outpatient Options discussed with patient at length Further recommendations pending plan of care as per clinical response of the patient Time with Patient: Greater than 30
--- NOTE | 2019-09-05 14:50 | P.PN ---
Subjective Progress Note Date: 09/05/19 Principal diagnosis: Mediastinal and hilar lymphadenopathy slightly progressed compared to 2018 Right bilateral hilar lymph nodes/nodule A. fib with RVR Morbid obesity Chronic persistent severe asthma Possible sleep disorder breathing and sleep apnea Coronary artery disease Hypertension hypertensive cardiovascular disease 09/05/2019, patient seen eval examined during the rounds labs reviewed medications reviewed care plan discussed patient is feeling better with A. fib RVR shortness of breath still there concerned about swelling in the lower extremity as well as anasarca patient is considering ablation therapy again, discussed with computed tomography scan finding with the patient, options discussed in terms of lung biopsy but she still would like to hold on that, patient has been on Rocephin IV Solu-Medrol as well as bronchodilator This is a 74-year-old female with history of chronic persistent asthma and COPD patient has a long-standing history of A. fib with RVR she was status post ablation a year ago came into the hospital with A. fib RVR with increased swelling and shortness of breath, patient also has a biventricular pacemaker with history of prior coronary artery disease and stent placement, patient had a CAT scan of the chest done shows a mildly enlarged lymphadenopathy with some calcification suggestive of prior recurrent erythematous disease, the right paratracheal lymph node is 1.2 cm slightly increase from 7 cm, precarinal is 1.6 cm up from 1.5 cm, right posterior hilar is 8 mm which is unchanged, 2.31.8 nodule/lymph nodes and right infrahilar region now 2.31.8 increase from 1.6x1.2, I discussed with her at length patient is not willing for biopsy at this time, but agreeable for follow up PET scan as outpatient Objective - Vital Signs Vital signs: Vital Signs Temp 97.5 F L 09/05/19 13:29 Pulse 101 H 09/05/19 13:29 Resp 18 09/05/19 13:29 BP 101/71 09/05/19 13:29 Pulse Ox 95 09/05/19 13:29 Intake & Output 09/04/19 09/05/19 09/05/19 18:59 06:59 18:59 Intake Total 600 840 Output Total 1500 Balance -900 840 Weight 100.9 kg 100.7 kg Intake: Oral 600 840 Output: Urine 1500 Other: Voiding Method Toilet Toilet Toilet # Voids 0 2 - Exam - Constitutional General appearance: cooperative, disheveled, morbidly obese - EENT Eyes: EOMI, PERRLA Ears: bilateral: normal - Neck Neck: normal ROM Carotids: bilateral: upstroke normal Thyroid: bilateral: normal size - Respiratory Respiratory: bilateral: diminished, rales (Both bases) - Cardiovascular Heart sounds: normal: S1, S2 - Gastrointestinal General gastrointestinal: normal bowel sounds - Integumentary Integumentary: normal turgor - Neurologic Neurologic: CNII-XII intact - Musculoskeletal Musculoskeletal: gait normal, generalized weakness, strength equal bilaterally - Psychiatric Psychiatric: A&O x's 3, appropriate affect, intact judgment & insight - Labs CBC & Chem 7: 09/01/19 18:05 09/04/19 06:49 Labs: Abnormal Lab Results - Last 24 Hours (Table) 09/04/19 09/04/19 09/05/19 Range/Units 17:05 20:07 06:05 POC Glucose (mg/dL) 121 H 156 H 156 H (75-99) mg/dL 09/05/19 Range/Units 11:54 POC Glucose (mg/dL) 139 H (75-99) mg/dL Assessment and Plan Assessment: Mediastinal and hilar lymphadenopathy slightly progressed compared to 2018 Right bilateral hilar lymph nodes/nodule A. fib with RVR Morbid obesity Chronic persistent severe asthma Possible sleep disorder breathing and sleep apnea Coronary artery disease Hypertension hypertensive cardiovascular disease Plan: Continue breathing treatment, broad-spectrum IV antibiotics and steroids for now Continue gentle diuresis Optimize medical management maximal for A. fib RVR Will get a PET scan as outpatient Options discussed with patient at length Further recommendations pending plan of care as per clinical response of the patient Time with Patient: Greater than 30
--- NOTE | 2019-09-05 16:07 | P.PN ---
Subjective Progress Note Date: 09/05/19 Principal diagnosis: This is a 74-year-old female who was recently admitted with atrial fibrillation with fast ventricular rate also had COPD, acute exacerbation and is being close ly monitored. Cardiology and pulmonary following. Patient has been transitioned oral Lasix along with oral Cardizem with adjustments to medications made. Patient's heart rate continues to be in the 110s. Patient is maintained on bronchodilators and will continue at this time. Patient continues to have some lower extremity swelling although states has improved and also states that her shortness of breath has slightly improved. Patient currently has no reports of chest pain or palpitations. Patient is afebrile. No reports of nausea or vomiting and patient is tolerating diet. Review of systems: Constitutional: No reports of weakness, fevers, or chills Cardiovascular: No reports of chest pain or palpitations Respiratory: No reports of worsening shortness of breath or cough GI: No reports of nausea, vomiting, or diarrhea : No reports of dysuria or retention Active Medications Acetaminophen (Tylenol Tab) 500 mg PO Q6HR PRN PRN Reason: Fever and/ or Pain Last Admin: 09/02/19 10:44 Dose: 500 mg Documented by: Hydrocodone Bitart/Acetaminophen ([place] 5-325) 1 each PO Q6HR PRN PRN Reason: Pain Last Admin: 09/04/19 12:14 Dose: 1 each Documented by: Albuterol/Ipratropium (Duoneb 0.5 Mg-3 Mg/3 Ml Soln) 3 ml INHALATION RT-QID [facility] Last Admin: 09/05/19 15:42 Dose: 3 ml Documented by: Allopurinol (Zyloprim) 100 mg PO [facility] Last Admin: 09/04/19 21:24 Dose: 100 mg Documented by: Alprazolam (Xanax) 0.25 mg PO TID PRN PRN Reason: Anxiety Amiodarone HCl (Cordarone) 200 mg PO BID [facility] Last Admin: 09/05/19 09:17 Dose: 200 mg Documented by: Aspirin (Aspirin) 81 mg PO [facility] Last Admin: 09/04/19 21:23 Dose: 81 mg Documented by: Atorvastatin Calcium (Lipitor) 40 mg PO [facility] Last Admin: 09/04/19 21:23 Dose: 40 mg Documented by: Budesonide/Formoterol Fumarate (Symbicort 80-4.5 Mcg Inhaler) 2 puff INHALATION RT-BID [facility] Last Admin: 09/05/19 07:50 Dose: Not Given Documented by: Cholecalciferol (Vitamin D3 (25 Mcg = 1000 Iu)) 1,000 unit PO DAILY [facility] Last Admin: 09/05/19 09:17 Dose: 1,000 unit Documented by: Diltiazem HCl (Cardizem Cd) 360 mg PO DAILY [facility] Last Admin: 09/05/19 09:17 Dose: 360 mg Documented by: Furosemide (Lasix) 40 mg PO BID@0900,1600 [facility] Last Admin: 09/05/19 15:39 Dose: 40 mg Documented by: Guaifenesin (Mucinex) 600 mg PO BID [facility] Last Admin: 09/05/19 09:17 Dose: 600 mg Documented by: Sodium Chloride (Saline 0.9%) 1,000 mls @ 20 mls/hr IV .Q24H [facility] Last Admin: 09/04/19 16:45 Dose: Not Given Documented by: Ceftriaxone Sodium 1 gm/ (Sodium Chloride) 50 mls @ 100 mls/hr IVPB Q24HR [facility] Last Admin: 09/05/19 09:17 Dose: 100 mls/hr Documented by: Insulin Aspart (Novolog) 0 unit SQ ACHS [facility]; Protocol Last Admin: 09/05/19 12:26 Dose: 1 unit Documented by: Levothyroxine Sodium (Synthroid) 75 mcg PO DAILY@0600 [facility] Last Admin: 09/05/19 04:47 Dose: 75 mcg Documented by: Magnesium Oxide (Mag-Ox) 400 mg PO DAILY [facility] Last Admin: 09/05/19 09:17 Dose: 400 mg Documented by: Methylprednisolone Sodium Succinate (Solu-Medrol) 60 mg IV Q6HR [facility] Last Admin: 09/05/19 12:26 Dose: 60 mg Documented by: Metoprolol Succinate (Toprol Xl) 100 mg PO DAILY [facility] Last Admin: 09/05/19 09:17 Dose: 100 mg Documented by: Naloxone HCl (Narcan) 0.2 mg IV Q2M PRN PRN Reason: Opioid Reversal Pantoprazole Sodium (Protonix) 40 mg PO AC-BRKFST [facility] Last Admin: 09/05/19 07:05 Dose: Not Given Documented by: Potassium Chloride (K-Dur 20) 20 meq PO DAILY [facility] Last Admin: 09/05/19 09:17 Dose: 20 meq Documented by: Rivaroxaban (Xarelto) 20 mg PO DAILY [facility] Last Admin: 09/05/19 09:17 Dose: 20 mg Documented by: Senna (Senokot) 8.6 mg PO DAILY [facility] Last Admin: 09/05/19 09:17 Dose: 8.6 mg Documented by: Objective - Vital Signs Vital signs: Vital Signs Temp 97.4 F L 09/05/19 15:44 Pulse 102 H 09/05/19 15:53 Resp 18 09/05/19 15:44 BP 115/73 09/05/19 15:44 Pulse Ox 92 L 09/05/19 15:44 Intake & Output 09/04/19 09/05/19 09/05/19 18:59 06:59 18:59 Intake Total 600 840 Output Total 1500 1450 Balance -900 -610 Weight 100.9 kg 100.7 kg Intake: Oral 600 840 Output: Urine 1500 1450 Other: Voiding Method Toilet Toilet Toilet # Voids 0 2 - Exam Gen: This is a 74-year-old female sitting up at the side of the bed, awake, alert and oriented 3, well-developed, well-nourished, obese. Temp is 97.5F, pulse is 101, respirations are 18, blood pressure is 101/71, oxygen saturation is 95% on 3 L via nasal cannula. HEENT: Head is atraumatic, normocephalic. Pupils equal, round. Sclerae is anicteric. NECK: Supple. No JVD. No lymphadenopathy. No thyromegaly. LUNGS: Breath sounds diminished at the bases with no rhonchi or crackles noted. Mild expiratory wheezing noted. No intercostal retractions. HEART: S1, S2 are muffled ABDOMEN: Soft. Bowel sounds are present. No masses. No tenderness. EXTREMITIES: No pedal edema. No calf tenderness. Bilateral lower extremity edema noted with slight improvement. NEUROLOGICAL: Patient is awake, alert and oriented x3. Cranial nerves 2 through 12 are grossly intact. - Labs CBC & Chem 7: 09/01/19 18:05 09/04/19 06:49 Labs: Abnormal Lab Results - Last 24 Hours (Table) 06/24/20 06/24/20 06/25/20 Range/Units 17:05 20:07 06:05 POC Glucose (mg/dL) 121 H 156 H 156 H (75-99) mg/dL 09/05/19 Range/Units 11:54 POC Glucose (mg/dL) 139 H (75-99) mg/dL Assessment and Plan Assessment: Atrial fibrillation with fast ventricular rate, present on admission Chronic obstructive pulmonary disease, acute exacerbation, with acute purulent tracheobronchitis Congestive heart failure, acute exacerbation, with acute on chronic diastolic dysfunction Increased creatinine with acute renal failure History of asthma History of coronary artery disease Multiple nodular lesions in the lung which are rather chronic and stable History of Hearing deficits History of myocardial infarction History of cardiac ablation for atrial fibrillation History of degenerative joint disease History of pneumonia history of gout history of hiatal hernia History of macular degeneration History of osteoporosis history of cholecystectomy History of coronary artery disease, stent remote history of nicotine dependence History of decreased carbon dioxide Acute renal failure, acute tubular necrosis, present on admission Reduced TSH and normal free T4 Full code Recommendations and discussion: Recommend to continue current medications, management, and symptomatic treatment. Patient is maintained on Lasix and has been transitioned to oral. Patient is maintained on bronchodilators and will continue at this time. Cardiology and pulmonary following. Patient's transitioned oral Cardizem and increased. Due to multiple complex medical issues, prognosis is guarded. Will repeat a.m. labs to monitor creatinine. Further recommendations to follow. Anticipate discharge in 24 hours.
[2019-09-05 16:44] LABS: Glucose,Whole Blood 151 mg/dL (75-99)
[2019-09-05] MEDS: ASPIRIN 81 MG PO SCH (19:42)
[2019-09-05] MEDS: ALLOPURINOL 100 MG TAB PO SCH (19:42)
[2019-09-05] MEDS: ATORVASTATIN 40 MG TAB PO SCH (19:42)
[2019-09-05 20:11] LABS: Glucose,Whole Blood 192 mg/dL (75-99)
[2019-09-06] MEDS: SODIUM CHLORIDE 0.9% 1,000 ML IV SCH (00:13)
[2019-09-06] MEDS: methylPREDNISolone SOD SUCCI 125 MG/2 ML VIAL IV SCH ×2 (00:13→06:05)
[2019-09-06 04:59] VITALS: RESP 18
[2019-09-06] MEDS: LEVOTHYROXINE 75 MCG TAB PO SCH (06:05)
[2019-09-06] MEDS: PANTOPRAZOLE 40 MG TABLET PO SCH (06:05)
[2019-09-06 06:14] LABS: Glucose,Whole Blood 149 mg/dL (75-99)
[2019-09-06] MEDS: INSULIN ASPART (NovoLOG) 100 UNIT/ML VIAL SQ SCH (06:34)
[2019-09-06] MEDS: IPRATROPIUM-ALBUTEROL 3 ML NEB INHALATION SCH ×2 (07:26→11:03)
[2019-09-06] MEDS: SYMBICORT 80-4.5 MCG INHALER INHALATION SCH (07:27)
[2019-09-06 08:18] LABS: Calcium 8.8 mg/dL (8.4-10.2)
[2019-09-06] MEDS: DILTIAZEM CD 180 MG CAP.ER.24H PO SCH (09:23)
[2019-09-06] MEDS: METOPROLOL SUCCINATE (ER) 100 MG TAB.ER.24H PO SCH (09:24)
[2019-09-06] MEDS: AMIODARONE 200 MG TAB PO SCH (09:24)
[2019-09-06] MEDS: guaiFENesin 600 MG TABLET.ER PO SCH (09:24)
[2019-09-06] MEDS: MAGNESIUM OXIDE 400 MG TAB PO SCH (09:24)
[2019-09-06] MEDS: CHOLECALCIFEROL 1,000 UNIT TAB PO SCH (09:24)
[2019-09-06] MEDS: POTASSIUM CHLORIDE ER 20 MEQ TAB.ER PO SCH (09:24)
[2019-09-06] MEDS: SENNOSIDES 8.6 MG TAB PO SCH (09:24)
[2019-09-06] MEDS: RIVAROXABAN 20 MG TAB PO SCH (09:24)
[2019-09-06] MEDS: FUROSEMIDE 40 MG TAB PO SCH (09:24)
[2019-09-06 09:51] VITALS: BP 117/79; PULSE 104; TEMP 97.4
--- NOTE | 2019-09-06 12:36 | P.PN ---
Subjective Progress Note Date: 09/06/19 This is a 74-year-old female patient with history of paroxysmal atrial fibrillation status post prior ablation, status post bi-V pacemaker, coronary artery disease with prior PCI, hypothyroidism, chronic diastolic heart failure, who presented to the hospital with symptoms of sustained palpitations with ass ociated chest discomfort. She was found to be in atrial fibrillation with a rapid ventricular response. Patient does have underlying COPD and uses home O2 on occasion. Patient was seen in consultation by Dr. Currie, this morning continued to be in atrial fibrillation with a rapid rate of 120 to 1:30, she had been started on oral amiodarone. Patient had tolerated amiodarone in the past, but it had been discontinued because of bradycardia prior to the pacemaker implantation. This morning the patient also complained of feeling quite short of breath. Blood pressure 134/70 with a heart rate 120 to 1:30, 95% on 3 L of oxygen. Sodium 133, potassium 4.6, BUN 30, creatinine 1.0. 09/04/2019 Patient seen and examined this morning, does state that her breathing is improving, continues to have a heart rate in the 1 teens to 120 range. Blood pressure 124/60. 94% on 3 L. Sodium 134, potassium 4.6, BUN 48, creatinine 1.5. 09/05/2019 Patient seen and examined this morning, she feels well this morning but states that through the night last night she had a severe pain in her upper abdomen ep igastric area, in the area where her hiatal hernia is. They did perform an EKG at that time which did not show any significant change. Overall her heart rate today is improving, around 108 this morning. Her breathing is stable and her lungs are clear today. Blood pressure 120/70 with a heart rate of 03/22/1994 percent on 3 L. 09/06/2019 Patient seen and examined this morning, doing well, heart rate around 108. Blood pressure 117/78, 97% on 3 L of oxygen. Sodium 135, potassium 4.0, BUN 62, creatinine 1.2. Objective - Vital Signs Vital signs: Vital Signs Temp 97.4 F L 09/06/19 08:00 Pulse 104 H 09/06/19 08:00 Resp 18 09/06/19 08:00 BP 117/79 09/06/19 08:00 Pulse Ox 97 09/06/19 08:00 Intake & Output 09/05/19 09/06/19 09/06/19 18:59 06:59 18:59 Intake Total 840 236 Output Total 1450 2200 Balance -610 -2200 236 Weight 100.7 kg Intake: Oral 840 236 Output: Urine 1450 2200 Other: Voiding Method Toilet Toilet # Voids 2 - Exam PHYSICAL EXAMINATION: GENERAL: 74-year-old female in no acute distress at the time of my examination HEENT: Head is atraumatic, normocephalic. Pupils equal, round. Sclera anicteric. Conjunctiva are clear. Mucous membranes of the mouth are moist. Neck is supple. There is no elevated jugular venous pressure. No carotid bruit is heard. HEART EXAMINATION: Heart S1 and S2 irregularly irregular a systolic murmur is heard CHEST EXAMINATION: lungs reveal improvement in air entry to the bases bilaterally, fine rales heard to the bases ABDOMEN: Soft, nontender. Bowel sounds are heard. No organomegaly noted. EXTREMITIES: 2+ peripheral pulses with trace evidence of peripheral edema and no calf tenderness noted. NEUROLOGIC patient is awake, alert and oriented X3. . - Labs CBC & Chem 7: 09/01/19 18:05 09/06/19 07:16 Labs: Abnormal Lab Results - Last 24 Hours (Table) 09/05/19 09/05/19 09/06/19 Range/Units 16:41 20:09 06:12 Sodium (137-145) mmol/L BUN (7-17) mg/dL Creatinine (0.52-1.04) mg/dL Glucose (74-99) mg/dL POC Glucose (mg/dL) 151 H 192 H 149 H (75-99) mg/dL 09/06/19 Range/Units 07:16 Sodium 135 L (137-145) mmol/L BUN 62 H (7-17) mg/dL Creatinine 1.24 H (0.52-1.04) mg/dL Glucose 135 H (74-99) mg/dL POC Glucose (mg/dL) (75-99) mg/dL Assessment and Plan Plan: Assessment and plan #1 atrial fibrillation with rapid ventricular response, persistent #2 history of prior atrial fibrillation ablation, with the intention to perform subsequent ablation #3 6 sinus syndrome status post pacemaker, bi V #4 coronary artery disease with prior PCI #5 hypothyroidism #6 diastolic congestive heart failure acute on chronic #7 COPD Plan From cardiology's perspective, we will continue with current dose of beta justin, calcium channel justin, and amiodarone. Continue Protonix 40 mg daily. Patient may be discharged home from our perspective. We'll make her a follow-up appointment in the office post discharge. DNP note has been reviewed, I agree with a documented findings and plan of care. Patient was seen and examined.
--- NOTE | 2019-09-07 08:38 | P.DS ---
Providers Date of admission: 09/01/19 18:59 Expected date of discharge: 09/06/19 Attending physician: May Tanner Consults: 09/01/19 19:26 Consult Physician Routine Consulting Provider: Meliza Morrissey Consult Reason/Comments: afib Do you want consulting provider notified?: Yes 09/04/19 11:43 Consult Physician Routine Consulting Provider: Arnel Leary Consult Reason/Comments: COPD, Chest CT results Do you want consulting provider notified?: Yes Primary care physician: Nirali Elizabeth [facility] Course: Final diagnosis Atrial fibrillation with fast ventricular rate, present on admission Chronic obstructive pulmonary disease, acute exacerbation, with acute purulent tracheobronchitis Congestive heart failure, acute exacerbation, with acute on chronic diastolic dysfunction Increased creatinine with acute renal failure History of asthma History of coronary artery disease Multiple nodular lesions in the lung which are rather chronic and stable History of Hearing deficits History of myocardial infarction History of cardiac ablation for atrial fibrillation History of degenerative joint disease History of pneumonia history of gout history of hiatal hernia History of macular degeneration History of osteoporosis history of cholecystectomy History of coronary artery disease, stent remote history of nicotine dependence History of decreased carbon dioxide Acute renal failure, acute tubular necrosis, present on admission Reduced TSH and normal free T4 Full code Discharge disposition Patient is being discharged in a stable condition with guarded prognosis to home. Patient will follow-up with Dr. Elizabeth upon discharge. Patient will also follow up with cardiology and pulmonary Dr. Leary in the outpatient setting. Patient will continue on a prednisone taper along with oral antibiotics in the form of Ceftin 500mg twice daily for 3 days to complete the course upon discharge. Total time taken is greater than 35 minutes. History of present illness This is a 73-year-old female who was recently admitted with afib with RVR and also acute COPD exacerbation and was being closely monitored. Patient was placed on steroids and IV antibiotics along with breathing treatments and IV lasix and is showing improvement. Patient was evaluated by cardiology and was placed on IV cardizem. Patent has been transitioned to oral cardizem along with oral lasix with adjustments made. Patient instructed to follow up with cardiology as well as pulmonary in the outpatient setting and appointments have been made. Currently no reports of chest pain, palpitations, or worsening shortness of breath. Patient is afebrile. No reports of nausea or vomiting and patient is tolerating diet. Guarded prognosis. On exam vital signs are stable. Temp is 97.4F, pulse is 104, respirations are 18, blood pressure 117/70, oxygen saturation is 97% on 3L via [place]. Cardio S1, S2 are present. Respiratory shows diminished breath sounds bilaterally with some mild expiratory wheezing noted. Abdomen is soft and non-tender. Nervous system shows no focal deficits. Please refer to medication reconciliation sheet for a list of medications. Patient Condition at Discharge: Fair Plan - Discharge Summary Discharge Rx Participant: No New Discharge Prescriptions: New Diltiazem Cd [Cardizem CD] 360 mg PO DAILY 30 Days #60 cap.er.24h Cefuroxime Axetil [Ceftin] 500 mg PO BID 3 Days #6 tab Amiodarone [Cordarone] 200 mg PO BID 30 Days #30 tab Ipratropium-Albuterol Nebulize [Duoneb 0.5 mg-3 mg/3 ml Soln] 3 ml INHALATION RT-QID 30 Days #90 ml predniSONE 10 mg PO DIRECTED #30 tab Pantoprazole [Protonix] 40 mg PO AC-BRKFST 30 Days #60 tablet.dr Fagan [Senokot] 8.6 mg PO DAILY 30 Days #30 tab Continue Albuterol Sulfate [Ventolin HFA] 2 puff INHALATION RT-QID PRN PRN Reason: Shortness Of Breath Vit C/E/Zn/Coppr/Lutein/Zeaxan [Preservision Areds 2 Softgel] 1 cap PO BID Atorvastatin [Lipitor] 40 mg PO HS #30 tab Magnesium Oxide [Mag-Ox] 250 mg PO DAILY Cholecalciferol [Vitamin D3 (25 Mcg = 1000 Iu)] 1,000 unit PO DAILY guaiFENesin [Mucinex] 600 mg PO BID Rivaroxaban [Xarelto] 20 mg PO DAILY Allopurinol [Zyloprim] 100 mg PO HS Levothyroxine Sodium [Synthroid] 75 mcg PO DAILY@0600 Potassium Chloride ER [K-Dur 20] 20 meq PO DAILY Ipratropium Nebulized [Atrovent Nebulized 0.2 MG/ML] 0.5 mg INHALATION RT-TID Fluticasone/Umeclidin/Vilanter [Trelegy Ellipta 100-62.5-25] 1 puff INHALATION RT-DAILY Metoprolol Succinate (ER) [Toprol XL] 100 mg PO DAILY #90 tab Aspirin [[place] Aspirin EC] 81 mg PO HS Budesonide [Pulmicort] 0.5 mg INHALATION RT-BID ALPRAZolam [Xanax] 0.25 mg PO BID PRN PRN Reason: Anxiety Changed Furosemide [Lasix] 40 mg PO BID #30 tablet Discontinued Diltiazem HCl [Diltiazem HCl 24Hr ER] 180 mg PO DAILY Discharge Medication List Albuterol Sulfate [Ventolin HFA] 2 puff INHALATION RT-QID PRN 08/11/13 [History] Vit C/E/Zn/Coppr/Lutein/Zeaxan [Preservision Areds 2 Softgel] 1 cap PO BID 03/02/15 [History] Atorvastatin [Lipitor] 40 mg PO HS #30 tab 03/04/15 [Rx] Cholecalciferol [Vitamin D3 (25 Mcg = 1000 Iu)] 1,000 unit PO DAILY 08/30/17 [History] Magnesium Oxide [Mag-Ox] 250 mg PO DAILY 08/30/17 [History] guaiFENesin [Mucinex] 600 mg PO BID 08/30/17 [History] Rivaroxaban [Xarelto] 20 mg PO DAILY 09/11/17 [History] Allopurinol [Zyloprim] 100 mg PO HS 10/22/18 [History] Levothyroxine Sodium [Synthroid] 75 mcg PO DAILY@0600 10/22/18 [History] Potassium Chloride ER [K-Dur 20] 20 meq PO DAILY 10/22/18 [History] Fluticasone/Umeclidin/Vilanter [Trelegy Ellipta 100-62.5-25] 1 puff INHALATION RT-DAILY 07/01/19 [History] Ipratropium Nebulized [Atrovent Nebulized 0.2 MG/ML] 0.5 mg INHALATION RT-TID 07/01/19 [History] Metoprolol Succinate (ER) [Toprol XL] 100 mg PO DAILY #90 tab 07/18/19 [Rx] Aspirin [[place] Aspirin EC] 81 mg PO HS 08/09/19 [History] Budesonide [Pulmicort] 0.5 mg INHALATION RT-BID 08/09/19 [History] ALPRAZolam [Xanax] 0.25 mg PO BID PRN 09/01/19 [History] Amiodarone [Cordarone] 200 mg PO BID 30 Days #30 tab 09/05/19 [Rx] Cefuroxime Axetil [Ceftin] 500 mg PO BID 3 Days #6 tab 09/05/19 [Rx] Diltiazem Cd [Cardizem CD] 360 mg PO DAILY 30 Days #60 cap.er.24h 09/05/19 [Rx] Furosemide [Lasix] 40 mg PO BID #30 tablet 09/05/19 [Rx] Ipratropium-Albuterol Nebulize [Duoneb 0.5 mg-3 mg/3 ml Soln] 3 ml INHALATION RT-QID 30 Days #90 ml 09/05/19 [Rx] Pantoprazole [Protonix] 40 mg PO AC-BRKFST 30 Days #60 tablet.dr 09/05/19 [Rx] Sennosides [Senokot] 8.6 mg PO DAILY 30 Days #30 tab 09/05/19 [Rx] predniSONE 10 mg PO DIRECTED #30 tab 09/05/19 [Rx] Follow up Appointment(s)/Referral(s): Ismael Trimble MD [STAFF PHYSICIAN] - 1 Week (please call to schedule appointment.) Arnel Leary MD [STAFF PHYSICIAN] - 09/19/19 11:30 am (Dr Elizabeth's office) Nirali Elizabeth MD [Primary Care Provider] - 1-2 days (call office to schedule an appointment) Ambulatory/Diagnostic Orders: Basic Metabolic Panel [LAB.AMB] Time Frame: 2 Days, Location: None Selected Patient Instructions/Handouts: A-fib (Atrial Fibrillation) (DC) Activity/Diet/Wound Care/Special Instructions: Activity Limited until follow-up Continue current diet Continue with antibiotics until finished Follow-up with primary care provider upon discharge Follow Up with cardiology as discussed Follow-up with pulmonary Continue with prednisone taper Discharge Disposition: HOME SELF-CARE
== END 2019-09-06 11:37 | disposition home or self-care (01) | DRG 308 ==
LOC: EC 17:50 → 3SCARD 18:59
PROVIDERS: ADMIT Hospitalist; ATTEND Hospitalist
DX: I48.0 Paroxysmal atrial fibrillation (principal); N17.0 Acute kidney failure with tubular necrosis; I50.33 Acute on chronic diastolic (congestive) heart failure; Z68.41 Body mass index [BMI] 40.0-44.9, adult; J44.1 Chronic obstructive pulmonary disease with (acute) exacerbation; I11.0 Hypertensive heart disease with heart failure; H91.90 Unspecified hearing loss, unspecified ear; E03.9 Hypothyroidism, unspecified; I49.5 Sick sinus syndrome; I25.10 Atherosclerotic heart disease of native coronary artery without angina pectoris; M19.90 Unspecified osteoarthritis, unspecified site; K44.9 Diaphragmatic hernia without obstruction or gangrene; E66.01 Morbid (severe) obesity due to excess calories; J45.50 Severe persistent asthma, uncomplicated; M81.0 Age-related osteoporosis without current pathological fracture; M10.9 Gout, unspecified; H35.30 Unspecified macular degeneration; Z20.828 Contact with and (suspected) exposure to other viral communicable diseases; Z79.82 Long term (current) use of aspirin; Z79.01 Long term (current) use of anticoagulants; I25.2 Old myocardial infarction; Z79.890 Hormone replacement therapy; Z79.899 Other long term (current) drug therapy; Z88.5 Allergy status to narcotic agent; Z87.01 Personal history of pneumonia (recurrent); Z87.891 Personal history of nicotine dependence; Z95.5 Presence of coronary angioplasty implant and graft; Z95.0 Presence of cardiac pacemaker; Z90.710 Acquired absence of both cervix and uterus; Z90.49 Acquired absence of other specified parts of digestive tract; Z85.828 Personal history of other malignant neoplasm of skin; Z82.49 Family history of ischemic heart disease and other diseases of the circulatory system; Z80.3 Family history of malignant neoplasm of breast; Z90.89 Acquired absence of other organs; Z98.890 Other specified postprocedural states; Z83.6 Family history of other diseases of the respiratory system; Z82.3 Family history of stroke
CPT/HCPCS: 36415; 71045; 71250; 80048; 80053; 82150; 82164; 83690; 83735; 84439; 84443; 84484; 85025; 85610; 85730; 93005; 94640; 94760; 96365; 96366; 99285

== ENCOUNTER 2019-09-19 07:20 | Day surgery (SDC) | payer MEDICARE ==
[2019-09-12 15:15] VITALS: BMI 40.8
[~2019-09-19 07:20] MED LIST changes: -ceFAZolin 1,000 MG in SODIUM CHLORIDE 0.9% IRRIGATIO 250 ML IRRIGATION ONE
[2019-09-19] MEDS ORDERED: SODIUM CHLORIDE 0.9% 1,000 ML IV ONE (08:06)
[2019-09-19] MEDS ORDERED: HEPARIN SODIUM,PORCINE 5,000 UNIT/ML 1 ML VIAL ONE (11:30)
[2019-09-19] MEDS ORDERED: PROPOFOL 10 MG/ML 20 ML VIAL IV ONE (11:30)
[2019-09-19] MEDS ORDERED: MIDAZOLAM 2 MG/2 ML VIAL ONE (11:30)
[2019-09-19] MEDS ORDERED: fentaNYL (PF) 50 MCG/ML 2 ML AMP ONE (11:30)
[2019-09-19] MEDS ORDERED: ATROPINE SULFATE 0.4 MG/ML 1 ML VIAL ONE (11:30)
[2019-09-19] MEDS ORDERED: LIDOCAINE 1% INJ 10MG/ML (20 ML MDV) ONE (11:37)
[2019-09-19] MEDS ORDERED: LIDOCAINE 1% INJ 10MG/ML (20 ML MDV) SQ ONE (11:58)
[2019-09-19] MEDS ORDERED: HEPARIN SODIUM,PORCINE 10,000 UNIT in SODIUM CHLORIDE 0.9% 1,000 ML IRRIGATION ONE (12:11)
[2019-09-19] MEDS ORDERED: ALPRAZolam 0.25 MG TAB PO PRN (12:29)
[2019-09-19] MEDS ORDERED: ALBUTEROL NEBULIZED 2.5 MG/3 ML INHALATION PRN (12:29)
--- NOTE | 2019-09-19 12:33 | P.PCN ---
Preoperative Diagnosis: Procedure: Device interrogation with reprogramming prior to the procedure Cardioversion for atrial fibrillation AV Node Ablation/modification. Device interrogation with reprogramming postprocedure Patient was brought to the EP lab in a fasting state. Written, informed consent was obtained prior to the procedure. Access was obtained, sheath placed in right femoral vein. 1. Preprocedure device interrogation and reprogramming Device interrogation with reprogramming performed. Rate responsiveness was turned off and the pacing rate was reprogrammed to a backup mode prior to ablation. Tachycardia detections turned off. Lead impedance is documented, sensing and pacing thresholds performed prior to the procedure Backup pacing, VVI 40 bpm 6000 units IV heparin bolus given 2. Electrical cardioversion A 200 J biphasic shock was used to cardiovert the patient to sinus rhythm Thereafter mapping of the AV node was performed, His bundle identified and RF ablation performed Patient was on therapeutic anticoagulation 3. AV node ablation A Mapping/Ablation catheter was placed and right-sided AV node radiofrequency ablation/modification was performed. Complete heart block was achieved with occasional junctional escape rhythm above 40 bpm 4. Device programming postprocedure Post ablation, device reprogramming was performed. Base Pacing rate was programmed to 90 bpm. Patient's device was reprogrammed and the interrogated. RF mode turned on Vascular sheaths were removed at the end of the procedure, hemostasis was assured, the patient was then transferred to recovery room/telemetry in stable condition. Conclusions: Successful ablation of the AV node. Plan: Pacing at 90 bpm for at least 3 weeks. Telemetry monitoring for 24-48 hours. Continue anticoagulation. Patient tolerated the procedure well without any acute complications Plan Stop amiodarone Stop diltiazem Continue metoprolol Continue other medications Continue Xarelto
[2019-09-19] MEDS ORDERED: IPRATROPIUM 0.5 MG/2.5 ML NEBU INHALATION SCH (13:00)
--- NOTE | 2019-09-19 13:04 | P.HPCAR ---
History of Present Illness This is Dr. Trimble dictating an H/P on this patient The patient was interviewed and examined IMPRESSION / ASSESSMENT: Symptomatic persistent atrial fibrillation with RVR despite amiodarone, diltiazem, metoprolol History of left atrial appendage thrombus Status post biventricular pacemaker implantation in the recent past Hypertension Dyslipidemia PLAN: IV heparin Proceed with electrical cardioversion and AV node modification Device reprogramming thereafter Thereafter we will stop amiodarone and diltiazem, continue metoprolol succinate HPI Patient continues to complain of shortness of breath with minimal exertion and bilateral lower extremity edema She has A. fib with RVR despite 3 AV donte blocking drugs including amiodarone ROS: No fever chills or rigors, no cough, phlegm or expectoration, no nausea, vomiting or diarrhea, no hematuria, dysuria, no musculoskeletal complaints, no strokes or seizures, no skin lesions. EXAMINATION: 98F, respirations 16 nonlabored Blood pressure 131/70 mmHg 99% O2 sat on nasal cannula 2 L Reduced breath sounds bilaterally but no rhonchi no crackles Heart sounds irregular rapid no murmurs Abdomen soft Bilateral lower extremity edema 1+ REVIEW OF LABS, ECG & MEDICAL DATA Medications reviewed and include diltiazem 360 mg daily, metoprolol succinate 100 mg by mouth daily and amiodarone 400 mg by mouth daily She is on xarelto She did not take her xarelto this morning but took it yesterday Physical Exam Vitals: Vital Signs Temp Pulse Resp BP Pulse Ox 09/19/19 08:02 98 F 98 16 131/70 99 Intake and Output 09/18/19 09/19/19 09/19/19 22:59 06:59 14:59 Intake Total 450 Balance 450 Intake: IV 450 Other: Weight 96.9 kg Past Medical History Past Medical History: Atrial Fibrillation, Asthma, Coronary Artery Disease (CAD), Cancer, COPD, Eye Disorder, Hearing Disorder / Deafness, Myocardial Infarction ([place]), Osteoarthritis (OA), Pneumonia, Thyroid Disorder Additional Past Medical History / Comment(s): See Dr Trimble's H&P, Gout, hiatal hernia, Macular Degeneration, Skin Cancer, degenerative disc disease, osteoporosis. UTI 07/01/19. Last Myocardial Infarction Date:: 2011 History of Any Multi-Drug Resistant Organisms: None Reported Past Surgical History: Cardiac Ablation, Cholecystectomy, Heart Catheterization With Stent, Hysterectomy, Orthopedic Surgery, Pacemaker, Tonsillectomy Additional Past Surgical History / Comment(s): Right shoulder surgery, left wrist surgery. Thyroid Nodule removed, sylvia Cataracts, LOOP RECORDER-11/23/17; CHRIO ABLATION 03/08/18 WITH CARDIOVERSION Past Anesthesia/Blood Transfusion Reactions: No Reported Reaction Date of Last Stent Placement:: 2011 Type of Cardiac Device: Permanent Pacemaker Device Placement Date:: 07/2019 Smoking Status: Former smoker - Past Family History Mother Family Medical History: Cancer, Congestive Heart Failure (CHF), Myocardial Infarction ([place]), Pneumonia, Pulmonary Embolus Additional Family Medical History / Comment(s): breast CA Father Family Medical History: CVA/TIA, Myocardial Infarction ([place]) Physical Examination Vital Signs Temp Pulse Resp BP Pulse Ox 09/19/19 08:02 98 F 98 16 131/70 99 Intake and Output 09/18/19 09/19/19 09/19/19 22:59 06:59 14:59 Intake Total 450 Balance 450 Intake: IV 450 Other: Weight 96.9 kg Results Current Medications Generic Name Dose Route Start Last Admin Trade Name Freq PRN Reason Stop Dose Admin Acetaminophen 650 mg 09/19/19 12:28 Tylenol Tab PO Q6HR PRN Mild Pain Albuterol Sulfate 2 puff 09/19/19 12:29 Ventolin Hfa Inhaler INHALATION RT-QID PRN Shortness Of Breath Albuterol/Ipratropium 3 ml 09/19/19 16:00 Duoneb 0.5 Mg-3 Mg/3 Ml Soln INHALATION RT-QID [facility] Allopurinol 100 mg 09/19/19 21:00 Zyloprim PO HS MILAN Alprazolam 0.25 mg 09/19/19 12:29 Xanax PO BID PRN Anxiety Atorvastatin Calcium 40 mg 09/19/19 21:00 Lipitor PO HS MILAN Furosemide 40 mg 09/19/19 21:00 Lasix PO BID MILAN Ipratropium [place] 0.5 mg 09/19/19 13:00 Atrovent Nebulized INHALATION RT-TID [facility] Levothyroxine Sodium 75 mcg 09/20/19 06:00 Synthroid PO DAILY@0600 MILAN Metoprolol Succinate 100 mg 09/20/19 09:00 Toprol Xl PO DAILY [facility] Non-Formulary Medication 81 mg 09/19/19 21:00 Aspirin [[place] Aspirin Ec] PO HS [facility] Non-Formulary Medication 1 puff 09/20/19 08:00 Fluticasone/Umeclidin/Vilanter [Trelegy Ellipta 100-62.5-25] INHALATION RT-DAILY [facility] Non-Formulary Medication 250 mg 09/20/19 09:00 Magnesium Oxide PO DAILY [facility] Pantoprazole Sodium 40 mg 09/20/19 07:30 Protonix PO AC-BRKFST [facility] Potassium Chloride 20 meq 09/20/19 09:00 K-Dur 20 PO DAILY [facility] Rivaroxaban 20 mg 09/19/19 12:39 Xarelto PO DAILY [facility] Sodium Chloride 12 ml 09/19/19 21:00 Saline Flush IV Q12HR [facility] Intake and Output 09/18/19 09/19/19 09/19/19 22:59 06:59 14:59 Intake Total 450 Balance 450 Intake: IV 450 Other: Weight 96.9 kg Patient Weight 09/20/19 06:59 Weight 96.9 kg
[2019-09-19] MEDS ORDERED: RIVAROXABAN 20 MG TAB PO STA (13:14)
[2019-09-19] MEDS: RIVAROXABAN 20 MG TAB PO SCH (13:24)
[2019-09-19] MEDS: IPRATROPIUM-ALBUTEROL 3 ML NEB INHALATION SCH ×2 (15:13→19:10)
[2019-09-19] MEDS: FUROSEMIDE 40 MG TAB PO SCH (16:50)
[2019-09-19] MEDS: ACETAMINOPHEN TAB 325 MG TAB PO PRN (20:52)
[2019-09-19] MEDS ORDERED: ASPIRIN 81 MG PO SCH (21:00)
[2019-09-19] MEDS ORDERED: allopurinoL 100 MG TAB PO SCH (21:00)
[2019-09-19] MEDS ORDERED: ATORVASTATIN 40 MG TAB PO SCH (21:00)
[2019-09-20] MEDS: ACETAMINOPHEN TAB 325 MG TAB PO PRN (04:12)
[2019-09-20] MEDS ORDERED: LEVOTHYROXINE 75 MCG TAB PO SCH (06:00)
[2019-09-20] MEDS ORDERED: PANTOPRAZOLE 40 MG TABLET PO SCH (07:30)
[2019-09-20] MEDS ORDERED: SYMBICORT 80-4.5 MCG INHALER INHALATION SCH (08:00)
--- NOTE | 2019-09-20 08:06 | P.DS ---
Providers Attending physician: Ismael Trimble Primary care physician: Nirali Glenn [facility] Course: Patient is doing well. Groin is healed very well after AV node ablation She is 100% pacing, for/except for pacing Twelve-lead ECG shows His bundle pacing, AV sequential pacing Afebrile Normal blood pressure Heart rate 90 beats a minute was programmed post AV node ablation Breath sounds are clear no rhonchi no crackles Normal heart sounds no murmurs or gallops or rub No lower extremity edema No JVD Impression AV node ablation Pacemaker programmed to baseline rate of 90 bpm Continue anticoagulation Medication changes were reviewed with the patient and her And drug be discontinued, diltiazem to be discontinued, oral potassium to be discontinued Continue metoprolol Add spironolactone Reduce Lasix to 40 mg once daily Follow-up in the office in 2 weeks for pacemaker reprogramming Plan - Discharge Summary Discharge Rx Participant: No New Discharge Prescriptions: New Furosemide [Lasix] 40 mg PO DAILY #90 tablet RX: Spironolactone 25 mg PO DAILY #90 tablet Discontinued RX: Potassium Chloride ER [K-Dur 20] 20 meq PO DAILY RX: Diltiazem Cd [Cardizem CD] 360 mg PO DAILY 30 Days #60 cap.er.24h RX: Amiodarone [Cordarone] 200 mg PO BID 30 Days #30 tab RX: Furosemide [Lasix] 40 mg PO BID #30 tablet No Action RX: Albuterol Sulfate [Ventolin HFA] 2 puff INHALATION RT-QID PRN PRN Reason: Shortness Of Breath RX: Vit C/E/Zn/Coppr/Lutein/Zeaxan [Preservision Areds 2 Softgel] 1 cap PO BID RX: Atorvastatin [Lipitor] 40 mg PO HS #30 tab RX: Magnesium Oxide [Mag-Ox] 250 mg PO DAILY RX: Cholecalciferol [Vitamin D3 (25 Mcg = 1000 Iu)] 1,000 unit PO DAILY RX: guaiFENesin [Mucinex] 600 mg PO BID RX: Rivaroxaban [Xarelto] 20 mg PO DAILY RX: Allopurinol [Zyloprim] 100 mg PO HS RX: Levothyroxine Sodium [Synthroid] 75 mcg PO DAILY@0600 RX: Ipratropium Nebulized [Atrovent Nebulized 0.2 MG/ML] 0.5 mg INHALATION RT-TID RX: Fluticasone/Umeclidin/Vilanter [Trelegy Ellipta 100-62.5-25] 1 puff INHALATION RT-DAILY RX: Metoprolol Succinate (ER) [Toprol XL] 100 mg PO DAILY #90 tab RX: Aspirin [Stephenson Aspirin EC] 81 mg PO HS RX: Budesonide [Pulmicort] 0.5 mg INHALATION RT-BID RX: ALPRAZolam [Xanax] 0.25 mg PO BID PRN PRN Reason: Anxiety RX: Ipratropium-Albuterol Nebulize [Duoneb 0.5 mg-3 mg/3 ml Soln] 3 ml INHALATION RT-QID 30 Days #90 ml RX: Pantoprazole [Protonix] 40 mg PO AC-BRKFST 30 Days #60 tablet. RX: Sennosides [Senokot] 8.6 mg PO DAILY 30 Days #30 tab Discharge Medication List RX: Albuterol Sulfate [Ventolin HFA] 2 puff INHALATION RT-QID PRN 08/11/13 [History] RX: Vit C/E/Zn/Coppr/Lutein/Zeaxan [Preservision Areds 2 Softgel] 1 cap PO BID 03/02/15 [History] RX: Atorvastatin [Lipitor] 40 mg PO HS #30 tab 03/04/15 [Rx] RX: Cholecalciferol [Vitamin D3 (25 Mcg = 1000 Iu)] 1,000 unit PO DAILY 08/30/17 [History] RX: Magnesium Oxide [Mag-Ox] 250 mg PO DAILY 08/30/17 [History] RX: guaiFENesin [Mucinex] 600 mg PO BID 08/30/17 [History] RX: Rivaroxaban [Xarelto] 20 mg PO DAILY 09/11/17 [History] RX: Allopurinol [Zyloprim] 100 mg PO HS 10/22/18 [History] RX: Levothyroxine Sodium [Synthroid] 75 mcg PO DAILY@0600 10/22/18 [History] RX: Fluticasone/Umeclidin/Vilanter [Trelegy Ellipta 100-62.5-25] 1 puff INHALATION RT-DAILY 07/01/19 [History] RX: Ipratropium Nebulized [Atrovent Nebulized 0.2 MG/ML] 0.5 mg INHALATION RT- TID 07/01/19 [History] RX: Metoprolol Succinate (ER) [Toprol XL] 100 mg PO DAILY #90 tab 07/18/19 [Rx] RX: Aspirin [Stephenson Aspirin EC] 81 mg PO HS 08/09/19 [History] RX: Budesonide [Pulmicort] 0.5 mg INHALATION RT-BID 08/09/19 [History] RX: ALPRAZolam [Xanax] 0.25 mg PO BID PRN 09/01/19 [History] RX: Ipratropium-Albuterol Nebulize [Duoneb 0.5 mg-3 mg/3 ml Soln] 3 ml INHALATION RT-QID 30 Days #90 ml 09/05/19 [Rx] RX: Pantoprazole [Protonix] 40 mg PO AC-BRKFST 30 Days #60 tablet. 09/05/19 [Rx] RX: Sennosides [Senokot] 8.6 mg PO DAILY 30 Days #30 tab 09/05/19 [Rx] Furosemide [Lasix] 40 mg PO DAILY #90 tablet 09/19/19 [Rx] RX: Spironolactone 25 mg PO DAILY #90 tablet 09/19/19 [Rx] Follow up Appointment(s)/Referral(s): Rajesh Flynn MD [STAFF PHYSICIAN] - 2 Weeks (Follow Dr. Currie and in the device clinic in 2 weeks,) Activity/Diet/Wound Care/Special Instructions: Post EP study - Ablation instructions 1. Keep access sites dry for 2 days. 2. No heavy lifting or straining for 2 days. 3. Avoid bending the hips repeatedly for 2 days. 4. You may go up and down stairs slowly Call if the following is noted 1. Bleeding, increasing swelling or pain at the access sites. 2. Increasing chest discomfort, especially upon taking a deep breath. 3. Increasing shortness of breath, at rest or with exertion. 4. Undue cough / phlegm 5. Difficulty or pain while swallowing. 6. Pain or change in color in the extremities. 7. Fever, chills, rigors. 8. Increasing headache or neurologic symptoms. 9. Dizziness, fainting, palpitations Stop the following medications Amiodarone Diltiazem Oral potassium Change the dosage on the following medications Lasix 40 mg by mouth daily only Medication Spironolactone 25 mg by mouth daily Continue Xarelto Follow-up with Dr. Currie and device clinic in 2 weeks for pacemaker reprogramming Discharge Disposition: HOME SELF-CARE
[2019-09-20] MEDS: FUROSEMIDE 40 MG TAB PO SCH (08:49)
[2019-09-20] MEDS ORDERED: RIVAROXABAN 20 MG TAB PO SCH (09:00)
[2019-09-20] MEDS ORDERED: METOPROLOL SUCCINATE (ER) 100 MG TAB.ER.24H PO SCH (09:00)
[2019-09-20] MEDS ORDERED: MAGNESIUM OXIDE 400 MG TAB PO SCH (09:00)
[2019-09-20] MEDS ORDERED: POTASSIUM CHLORIDE ER 20 MEQ TAB.ER PO SCH (09:00)
[2019-09-20 09:55] VITALS: BP 113/74; RESP 20; TEMP 98
[2019-09-20] MEDS: IPRATROPIUM 0.5 MG/2.5 ML NEBU INHALATION SCH ×2 (10:10→10:57)
[2019-09-20] MEDS: IPRATROPIUM-ALBUTEROL 3 ML NEB INHALATION SCH ×2 (10:10→10:37)
[2019-09-20] MEDS: RIVAROXABAN 20 MG TAB PO SCH (10:44)
[2019-09-20 10:51] VITALS: PULSE 88
== END 2019-09-20 12:32 | disposition home or self-care (01) ==
LOC: CATHEP 07:20 → 1SOBS 12:32 → CATHEP 09-20 12:32
PROVIDERS: ATTEND Internal Medicine Clinical Cardiac Electrophysiology
DX: I48.21 Permanent atrial fibrillation (principal); I49.5 Sick sinus syndrome; E78.5 Hyperlipidemia, unspecified; R60.0 Localized edema; J44.9 Chronic obstructive pulmonary disease, unspecified; H35.30 Unspecified macular degeneration; H91.90 Unspecified hearing loss, unspecified ear; I25.2 Old myocardial infarction; M19.90 Unspecified osteoarthritis, unspecified site; E07.9 Disorder of thyroid, unspecified; M51.9 Unspecified thoracic, thoracolumbar and lumbosacral intervertebral disc disorder; M10.9 Gout, unspecified; K44.9 Diaphragmatic hernia without obstruction or gangrene; I25.119 Atherosclerotic heart disease of native coronary artery with unspecified angina pectoris; I11.0 Hypertensive heart disease with heart failure; I50.9 Heart failure, unspecified; E66.01 Morbid (severe) obesity due to excess calories; Z68.41 Body mass index [BMI] 40.0-44.9, adult; Z98.890 Other specified postprocedural states; Z95.0 Presence of cardiac pacemaker; Z79.899 Other long term (current) drug therapy; Z79.82 Long term (current) use of aspirin; Z79.01 Long term (current) use of anticoagulants; Z95.5 Presence of coronary angioplasty implant and graft; Z79.51 Long term (current) use of inhaled steroids; Z79.890 Hormone replacement therapy; Z88.5 Allergy status to narcotic agent; Z88.2 Allergy status to sulfonamides; Z86.718 Personal history of other venous thrombosis and embolism; Z85.828 Personal history of other malignant neoplasm of skin; Z87.01 Personal history of pneumonia (recurrent); Z87.39 Personal history of other diseases of the musculoskeletal system and connective tissue; Z87.440 Personal history of urinary (tract) infections; Z90.49 Acquired absence of other specified parts of digestive tract; Z90.710 Acquired absence of both cervix and uterus; Z90.89 Acquired absence of other organs; Z98.41 Cataract extraction status, right eye; Z98.42 Cataract extraction status, left eye; Z87.891 Personal history of nicotine dependence; Z97.2 Presence of dental prosthetic device (complete) (partial); Z80.3 Family history of malignant neoplasm of breast; Z82.49 Family history of ischemic heart disease and other diseases of the circulatory system; Z82.5 Family history of asthma and other chronic lower respiratory diseases; Z82.3 Family history of stroke
CPT/HCPCS: 94640 ×3; 92960; 93650; 93281; C1894; C1769 ×2; C1732; J2250; J0461; J1644 ×2; J0690; J2001; J3010; J2704

== ENCOUNTER → 2019-11-02 | Outpatient (CLI) | payer MEDICARE ==
--- NOTE | 2019-11-04 06:34 | PE ---
EXAMINATION TYPE: PET CT fusion skull to thigh DATE OF EXAM: 11/02/2019 COMPARISON: CT chest abdomen and pelvis September 15, 2015. HISTORY: Solitary pulmonary nodule, abnormal CT. 2.3 x 1.8 cm right infrahilar pulmonary nodule/large lymph node TECHNIQUE: Following the intravenous administration of 10.65 mCi of F-18 FDG, whole body images are performed from the skull base to the midthigh. Images are reviewed on the computer in the coronal, a xial, and sagittal planes. Reconstructed rotating images are created on independent workstation and reviewed on the computer. A noncontrast CT is performed in conjunction with the PET scan. SCAN: Initial Scan FINDINGS: SKULL BASE AND NECK: Mild uptake surrounding the right shoulder presumed inflammatory. No suspicious hypermetabolic uptake. CHEST, MEDIASTINUM, AND HILAR REGION: Patient has enlarged right paratracheal lymph node axial image 62 measuring 2.0 x 1.8 cm. Mild hypermetabolic uptake, max SUV 3.42. This lymph node was enlarged in size 2016 CT without significant interval growth. Enlarged right hilar lymph nodes seen better on 201 6 contrast-enhanced CT with infrahilar 2.0 x 1.8 cm lymph node axial image [address] may correspo nd to the lesion of concern on outside CT report. Max SUV right hilar level 2.98 on current study. No suspicious hypermetabolic nodules. ABDOMEN AND PELVIS: No areas of abnormal hypermetabolic uptake. Normal excretion is seen. OSSEOUS STRUCTURES: No areas of abnormal hypermetabolic uptake. OTHER CT: There is cardiomegaly with dual-lead pacemaker/defibrillator. Enlarged pulmonary arteries c onsistent with underlying pulmonary artery hypertension. Stable 5 mm nodule or nodular scarring anter ior right upper lobe axial image 67 is ametabolic. Background mild to moderate underlying emphysemato us change greatest in the upper lobes. Sigmoid colonic diverticulosis. Multilevel spurring in the spine. Multilevel disc space narrowing and facet arthropathy in the lumbar spine. Moderate calcified plaque of the abdominal aorta extends into branch vessels. IMPRESSION: No suspicious hypermetabolic uptake or new/enlarging nodules or enlarging thoracic adenop athy to suggest neoplasm.
== END | disposition home or self-care (01) ==
LOC: RADPETMAIN 08:59
PROVIDERS: ATTEND Internal Medicine Sleep Medicine
DX: C71.1 Malignant neoplasm of frontal lobe (principal); R91.1 Solitary pulmonary nodule
CPT/HCPCS: 78815; A9552

== ENCOUNTER 2020-05-23 14:42 | Inpatient (IN) | payer MEDICARE ==
[2020-05-23] MEDS ORDERED: SODIUM CHLORIDE 0.9% 1,000 ML IV STA (15:01)
[2020-05-23] MEDS ORDERED: ONDANSETRON 4 MG/2 ML VIAL IVP STA (15:01)
--- NOTE | 2020-05-23 15:13 | ED ---
Nausea/Vomiting/Diarrhea HPI - General Chief complaint: Nausea/Vomiting/Diarrhea Stated complaint: Weakness Time Seen by Provider: 05/23/20 15:00 Source: patient, EMS, RN notes reviewed Mode of arrival: EMS Limitations: no limitations - History of Present Illness Initial comments: Patient is a 74-year-old female that presents to emergency department com plaining of one week of nausea and diarrhea. She notes that she hasn't E over the last week and is only been drinking water. She notes that she has several bouts of diarrhea daily with no blood. She notes that she is constant nauseous is unable to eat food. She was well-appearing in no apparent distress or pain while sitting up in bed during interview and exam. Patient does have a past medical history of atrial fibrillation, asthma, CAD, COPD and other comorbidities. Patient did state that she is in about 5 out of 10 pain does not want any pain medications as it is tolerable. She denied any chest pain shortness of breath headache vomiting constipation fever fatigue chills - Related Data Home Medications Medication Instructions Recorded Confirmed Albuterol Sulfate [Ventolin HFA] 2 puff INHALATION RT-QID PRN 08/11/13 05/23/20 Vit C/E/Zn/Coppr/Lutein/Zeaxan 1 cap PO BID 03/02/15 05/23/20 [Preservision Areds 2 Softgel] Magnesium Oxide [Mag-Ox] 250 mg PO DAILY 08/30/17 05/23/20 guaiFENesin [Mucinex] 600 mg PO BID PRN 08/30/17 05/23/20 Rivaroxaban [Xarelto] 20 mg PO DAILY 09/11/17 05/23/20 Levothyroxine Sodium [Synthroid] 75 mcg PO DAILY@0600 10/22/18 05/23/20 allopurinoL [Zyloprim] 100 mg PO HS 10/22/18 05/23/20 Fluticasone/Umeclidin/Vilanter 1 puff INHALATION RT-DAILY 07/01/19 05/23/20 [Trelegy Ellipta 100-62.5-25] Ipratropium Nebulized [Atrovent 0.5 mg INHALATION RT-TID 07/01/19 05/23/20 Nebulized 0.2 MG/ML] Aspirin [Jack Aspirin EC] 81 mg PO HS 08/09/19 05/23/20 Budesonide [Pulmicort] 0.5 mg INHALATION RT-BID 08/09/19 05/23/20 Cholecalciferol [Vitamin D3 (25 25 mcg PO DAILY 05/23/20 05/23/20 Mcg = 1000 Iu)] Metoprolol Tartrate [Lopressor] 50 mg PO DAILY 05/23/20 05/23/20 Previous Rx's Medication Instructions Recorded Atorvastatin [Lipitor] 40 mg PO HS #30 tab 03/04/15 Furosemide [Lasix] 40 mg PO DAILY #90 tablet 09/19/19 Spironolactone 25 mg PO DAILY #90 tablet 09/19/19 Allergies Allergy/AdvReac Type Severity Reaction Status Date / Time codeine Allergy Itching Verified 05/23/20 17:01 Review of Systems ROS Statement: Those systems with pertinent positive or pertinent negative responses have been documented in the HPI. ROS Other: All systems not noted in ROS Statement are negative. Past Medical History Past Medical History: Atrial Fibrillation, Asthma, Coronary Artery Disease (CAD), Cancer, COPD, Eye Disorder, Hearing Disorder / Deafness, Myocardial Infarction ([place]), Osteoarthritis (OA), Pneumonia, Thyroid Disorder Additional Past Medical History / Comment(s): See Dr Trimble's H&P, Gout, hiatal hernia, Macular Degeneration, Skin Cancer, degenerative disc disease, osteoporosis. UTI 07/01/19. Last Myocardial Infarction Date:: 2011 History of Any Multi-Drug Resistant Organisms: None Reported Past Surgical History: Cardiac Ablation, Cholecystectomy, Heart Catheterization With Stent, Hysterectomy, Orthopedic Surgery, Pacemaker, Tonsillectomy Additional Past Surgical History / Comment(s): Right shoulder surgery, left wrist surgery. Thyroid Nodule removed, sylvia Cataracts, LOOP RECORDER-11/23/17; CHRIO ABLATION 03/08/18 WITH CARDIOVERSION Past Anesthesia/Blood Transfusion Reactions: No Reported Reaction Date of Last Stent Placement:: 2011 Type of Cardiac Device: Permanent Pacemaker Device Placement Date:: 07/2019 Past Psychological History: No Psychological Hx Reported Smoking Status: Former smoker Past Alcohol Use History: None Reported Past Drug Use History: None Reported - Past Family History Mother Family Medical History: Cancer, Congestive Heart Failure (CHF), Myocardial Infarction ([place]), Pneumonia, Pulmonary Embolus Additional Family Medical History / Comment(s): breast CA Father Family Medical History: CVA/TIA, Myocardial Infarction ([place]) General Exam Limitations: no limitations General appearance: alert, in no apparent distress, obese Head exam: Present: atraumatic, normocephalic, normal inspection Eye exam: Present: normal appearance, PERRL, EOMI. Absent: scleral icterus, conjunctival injection, periorbital swelling ENT exam: Present: normal exam, mucous membranes moist Neck exam: Present: normal inspection. Absent: tenderness, meningismus, lymphadenopathy Respiratory exam: Present: normal lung sounds bilaterally, other (Nasal cannula in place.). Absent: respiratory distress, wheezes, rales, rhonchi, stridor Cardiovascular Exam: Present: regular rate, normal rhythm, normal heart sounds. Absent: systolic murmur, diastolic murmur, rubs, gallop, clicks GI/Abdominal exam: Present: soft, tenderness (Left upper quadrant), normal bowel sounds. Absent: distended, guarding, rebound, rigid Extremities exam: Present: normal inspection, full ROM, normal capillary refill. Absent: tenderness, pedal edema, joint swelling, calf tenderness Neurological exam: Present: alert, oriented X3, CN II-XII intact Psychiatric exam: Present: normal affect, normal mood Skin exam: Present: warm, dry, intact, normal color. Absent: rash Course Vital Signs 05/23/20 05/23/20 05/23/20 14:45 17:05 17:11 Temperature 98.6 F 97.2 F L Pulse Rate 80 63 Respiratory 22 20 Rate Blood Pressure 126/62 121/70 O2 Sat by Pulse 93 L 95 Oximetry Medical Decision Making - Medical Decision Making 74-year-old female complaining of nausea and diarrhea for the past 5-7 days. Labs, chest x-ray, KUB, 1 L normal saline, 4 mg of Zofran ordered Labs unremarkable. But did show dehydration tendency with a early stage pancreatitis. Case discussed with Dr. Morales, decided patient will be admitted to the hospital. - Lab Data Result diagrams: 05/24/20 12:15 05/25/20 04:10 Lab Results 05/23/20 05/23/20 05/23/20 Range/Units 15:09 15:09 15:09 WBC 4.6 (3.8-10.6) k/uL RBC 5.33 (3.80-5.40) m/uL Hgb 13.5 (11.4-16.0) gm/dL Hct 43.2 (34.0-46.0) % MCV 81.1 (80.0-100.0) fL MCH 25.3 (25.0-35.0) pg MCHC 31.3 (31.0-37.0) g/dL RDW 16.7 H (11.5-15.5) % Plt Count 195 (150-450) k/uL MPV 8.0 Neutrophils % 59 % Lymphocytes % 25 % Monocytes % 12 % Eosinophils % 0 % Basophils % 1 % Neutrophils # 2.7 (1.3-7.7) k/uL Lymphocytes # 1.2 (1.0-4.8) k/uL Monocytes # 0.5 (0-1.0) k/uL Eosinophils # 0.0 (0-0.7) k/uL Basophils # 0.0 (0-0.2) k/uL Anisocytosis Slight D-Dimer (<0.60) mg/L FEU Sodium 135 L (137-145) mmol/L Potassium 4.2 (3.5-5.1) mmol/L Chloride 107 (98-107) mmol/L Carbon Dioxide 15 L (22-30) mmol/L Anion Gap 13 mmol/L BUN 37 H (7-17) mg/dL Creatinine 1.89 H (0.52-1.04) mg/dL Est GFR (CKD-EPI)AfAm 30 (>60 ml/min/1.73 sqM) Est GFR (CKD-EPI)NonAf 26 (>60 ml/min/1.73 sqM) BUN/Creatinine Ratio (12.00-20.00) Ratio Glucose 105 H (74-99) mg/dL Calcium 8.8 (8.4-10.2) mg/dL Ferritin (10.0-291.0) ng/mL Total Bilirubin 0.8 (0.2-1.3) mg/dL AST 68 H (14-36) U/L ALT 23 (4-34) U/L Alkaline Phosphatase 94 (38-126) U/L Lactate Dehydrogenase (120-246) U/L C-Reactive Protein (0.0-0.8) mg/dL Total Protein 6.6 (6.3-8.2) g/dL Albumin 3.6 (3.5-5.0) g/dL Amylase 134 H (30-110) U/L Lipase 558 H (23-300) U/L Urine Color Yellow Urine Appearance Cloudy H (Clear) Urine pH 5.5 (5.0-8.0) Ur Specific [place] 1.017 (1.001-1.035) Urine Protein 2+ H (Negative) Urine Glucose (UA) Negative (Negative) Urine Ketones Trace H (Negative) Urine Blood Trace H (Negative) Urine Nitrite Negative (Negative) Urine Bilirubin Negative (Negative) Urine Urobilinogen <2.0 (<2.0) mg/dL Ur Leukocyte Esterase Negative (Negative) Urine RBC 1 (0-5) /hpf Urine WBC 5 (0-5) /hpf Ur Squamous Epith Cells 3 (0-4) /hpf Urine Bacteria Rare H (None) /hpf Hyaline Casts 13 H (0-2) /lpf Urine Mucus Rare H (None) /hpf Coronavirus (PCR) (Not Detectd) 05/23/20 05/24/20 05/24/20 Range/Units 16:58 12:15 12:15 WBC 6.6 (3.8-10.6) k/uL RBC 5.17 (3.80-5.40) m/uL Hgb 13.6 (11.4-16.0) gm/dL Hct 42.4 (34.0-46.0) % MCV 82.1 (80.0-100.0) fL MCH 26.3 (25.0-35.0) pg MCHC 32.0 (31.0-37.0) g/dL RDW 16.8 H (11.5-15.5) % Plt Count 203 (150-450) k/uL MPV 8.2 Neutrophils % 67 % Lymphocytes % 20 % Monocytes % 9 % Eosinophils % 1 % Basophils % 1 % Neutrophils # 4.4 (1.3-7.7) k/uL Lymphocytes # 1.3 (1.0-4.8) k/uL Monocytes # 0.6 (0-1.0) k/uL Eosinophils # 0.0 (0-0.7) k/uL Basophils # 0.0 (0-0.2) k/uL Anisocytosis Slight D-Dimer 1.47 H (<0.60) mg/L FEU Sodium (137-145) mmol/L Potassium (3.5-5.1) mmol/L Chloride (98-107) mmol/L Carbon Dioxide (22-30) mmol/L Anion Gap mmol/L BUN (7-17) mg/dL Creatinine (0.52-1.04) mg/dL Est GFR (CKD-EPI)AfAm (>60 ml/min/1.73 sqM) Est GFR (CKD-EPI)NonAf (>60 ml/min/1.73 sqM) BUN/Creatinine Ratio (12.00-20.00) Ratio Glucose (74-99) mg/dL Calcium (8.4-10.2) mg/dL Ferritin (10.0-291.0) ng/mL Total Bilirubin (0.2-1.3) mg/dL AST (14-36) U/L ALT (4-34) U/L Alkaline Phosphatase (38-126) U/L Lactate Dehydrogenase (120-246) U/L C-Reactive Protein (0.0-0.8) mg/dL Total Protein (6.3-8.2) g/dL Albumin (3.5-5.0) g/dL Amylase (30-110) U/L Lipase (23-300) U/L Urine Color Urine Appearance (Clear) Urine pH (5.0-8.0) Ur Specific [place] (1.001-1.035) Urine Protein (Negative) Urine Glucose (UA) (Negative) Urine Ketones (Negative) Urine Blood (Negative) Urine Nitrite (Negative) Urine Bilirubin (Negative) Urine Urobilinogen (<2.0) mg/dL Ur Leukocyte Esterase (Negative) Urine RBC (0-5) /hpf Urine WBC (0-5) /hpf Ur Squamous Epith Cells (0-4) /hpf Urine Bacteria (None) /hpf Hyaline Casts (0-2) /lpf Urine Mucus (None) /hpf Coronavirus (PCR) Detected A (Not Detectd) 05/24/20 05/25/20 Range/Units 12:15 04:10 WBC (3.8-10.6) k/uL RBC (3.80-5.40) m/uL Hgb (11.4-16.0) gm/dL Hct (34.0-46.0) % MCV (80.0-100.0) fL MCH (25.0-35.0) pg MCHC (31.0-37.0) g/dL RDW (11.5-15.5) % Plt Count (150-450) k/uL MPV Neutrophils % % Lymphocytes % % Monocytes % % Eosinophils % % Basophils % % Neutrophils # (1.3-7.7) k/uL Lymphocytes # (1.0-4.8) k/uL Monocytes # (0-1.0) k/uL Eosinophils # (0-0.7) k/uL Basophils # (0-0.2) k/uL Anisocytosis D-Dimer (<0.60) mg/L FEU Sodium 138 135 (137-145) mmol/L Potassium 4.2 4.7 (3.5-5.1) mmol/L Chloride 106 107 (98-107) mmol/L Carbon Dioxide 16.7 L 16.3 L (22-30) mmol/L Anion Gap 15.30 H 11.70 mmol/L BUN 45.0 H 43.0 H (7-17) mg/dL Creatinine 1.8 H 1.5 (0.52-1.04) mg/dL Est GFR (CKD-EPI)AfAm 31.6 L 39.4 L (>60 ml/min/1.73 sqM) Est GFR (CKD-EPI)NonAf 27.2 L 34.0 L (>60 ml/min/1.73 sqM) BUN/Creatinine Ratio 25.00 H 28.67 H (12.00-20.00) Ratio Glucose 95 178 H (74-99) mg/dL Calcium 8.7 8.1 L (8.4-10.2) mg/dL Ferritin 356.2 H (10.0-291.0) ng/mL Total Bilirubin (0.2-1.3) mg/dL AST (14-36) U/L ALT (4-34) U/L Alkaline Phosphatase (38-126) U/L Lactate Dehydrogenase 468 H (120-246) U/L C-Reactive Protein 4.2 H (0.0-0.8) mg/dL Total Protein (6.3-8.2) g/dL Albumin (3.5-5.0) g/dL Amylase (30-110) U/L Lipase (23-300) U/L Urine Color Urine Appearance (Clear) Urine pH (5.0-8.0) Ur Specific [place] (1.001-1.035) Urine Protein (Negative) Urine Glucose (UA) (Negative) Urine Ketones (Negative) Urine Blood (Negative) Urine Nitrite (Negative) Urine Bilirubin (Negative) Urine Urobilinogen (<2.0) mg/dL Ur Leukocyte Esterase (Negative) Urine RBC (0-5) /hpf Urine WBC (0-5) /hpf Ur Squamous Epith Cells (0-4) /hpf Urine Bacteria (None) /hpf Hyaline Casts (0-2) /lpf Urine Mucus (None) /hpf Coronavirus (PCR) (Not Detectd) Disposition Clinical Impression: Dehydration, Diarrhea, Nausea, Pancreatitis Disposition: ADMITTED IP TO THIS [facility] Condition: Stable Is patient prescribed a controlled substance at d/c from ED?: No
[2020-05-23 15:27] LABS: Appearance,Urine Cloudy (Clear); Bacteria,Urine Rare /hpf; Bilirubin,Urine Negative (Negative); Blood,Urine Trace (Negative); Color,Urine Yellow; Glucose,Urine (UA) Negative (Negative); Hyaline Casts,Urine 13 /lpf (0-2); Ketones,Urine Trace (Negative); Leukocyte Esterase,Urine Negative (Negative); Mucus,Urine Rare /hpf; Nitrite,Urine Negative (Negative); PH, Urine 5.5 (5.0-8.0); Protein,Urine 2+ (Negative); RBC,Urine 1 /hpf (0-5); Specific Gravity,Urine 1.017 (1.001-1.035); Squamous Epithelial Cell,Urine 3 /hpf (0-4); Urobilinogen,Urine <2.0 mg/dL (<2.0); WBC,Urine 5 /hpf (0-5)
[2020-05-23 15:37] LABS: Anisocytosis Slight; Basophils % (A) 1 %; Eosinophils % (A) 0 %; HCT 43.2 % (34.0-46.0); HGB 13.5 gm/dL (11.4-16.0); Lymphocytes # (A) 1.2 k/uL (1.0-4.8); Lymphocytes % (A) 25 %; MCH 25.3 pg (25.0-35.0); MCHC 31.3 g/dL (31.0-37.0); MCV 81.1 fL (80.0-100.0); Monocytes # (A) 0.5 k/uL (0-1.0); Monocytes % (A) 12 %; Neutrophils # (A) 2.7 k/uL (1.3-7.7); Neutrophils % (A) 59 %; Platelet Count 195 k/uL (150-450); RBC 5.33 m/uL (3.80-5.40); RDW 16.7 % (11.5-15.5); WBC 4.6 k/uL (3.8-10.6)
[2020-05-23 15:56] LABS: Albumin 3.6 g/dL (3.5-5.0); Calcium 8.8 mg/dL (8.4-10.2); Potassium 4.2 mmol/L (3.5-5.1); Total Bilirubin 0.8 mg/dL (0.2-1.3); Total Protein 6.6 g/dL (6.3-8.2)
[2020-05-23] MEDS ORDERED: NALOXONE 0.4 MG/ML 1 ML VIAL IV PRN (16:34)
[2020-05-23] MEDS ORDERED: ONDANSETRON 4 MG/2 ML VIAL IVP PRN (16:34)
--- NOTE | 2020-05-23 16:58 | XR ---
EXAMINATION TYPE: XR KUB DATE OF EXAM: 05/23/2020 COMPARISON: NONE HISTORY: Weakness TECHNIQUE: 2 views upright FINDINGS: There is no sign of intestinal obstruction or pneumoperitoneum. Fecal pattern is normal. Th ere are no pathologic calcifications over the kidneys. There is no evidence of a mass. IMPRESSION: Nonacute abdomen.
--- NOTE | 2020-05-23 17:00 | XR ---
EXAMINATION TYPE: XR chest 2V DATE OF EXAM: 05/23/2020 COMPARISON: 09/01/2019 HISTORY: Chest pain. Weakness. TECHNIQUE: 2 views FINDINGS: There is some interstitial-type of infiltrate in the left mid and lower lung field. There i s no obvious heart failure. There is left axillary pacemaker. There are large central pulmonary arter ies consistent with some pulmonary hypertension. There is no definite pleural effusion. IMPRESSION: There is some pulmonary interstitial fibrosis. There is increased left lung pulmonary int erstitial infiltrate compared to old exam and consistent with acute pneumonia. No obvious heart failu re.
[2020-05-23] MEDS: SODIUM CHLORIDE 0.9% 1,000 ML IV SCH (17:04)
[2020-05-23] MEDS ORDERED: guaiFENesin 600 MG TABLET.ER PO PRN (17:58)
[2020-05-23] MEDS ORDERED: IPRATROPIUM 0.5 MG/2.5 ML NEBU INHALATION SCH (20:00)
[2020-05-23] MEDS ORDERED: BUDESONIDE 0.5 MG/2 ML NEBU INHALATION SCH (20:00)
[2020-05-23] MEDS ORDERED: ALBUTEROL HFA INHALER INHALATION PRN (20:20)
[2020-05-23] MEDS: ASPIRIN 81 MG PO SCH (20:24)
[2020-05-23] MEDS: allopurinoL 100 MG TAB PO SCH (20:24)
[2020-05-23] MEDS: ATORVASTATIN 40 MG TAB PO SCH (20:24)
[2020-05-23] MEDS: SYMBICORT 160-4.5 MCG INHALER INHALATION SCH (20:33)
[2020-05-23] MEDS: ALBUTEROL HFA INHALER INHALATION SCH (20:34)
[2020-05-23] MEDS: TIOTROPIUM 2.5 MCG INHALER INHALATION SCH (20:49)
[2020-05-23] MEDS: ACETAMINOPHEN TAB 500 MG TAB PO PRN (23:39)
[2020-05-24] MEDS: LEVOTHYROXINE 75 MCG TAB PO SCH (06:10)
[2020-05-24] MEDS: SODIUM CHLORIDE 0.9% 1,000 ML IV SCH ×2 (06:11→21:33)
[2020-05-24] MEDS: ALBUTEROL HFA INHALER INHALATION SCH ×4 (07:43→20:54)
[2020-05-24] MEDS: SYMBICORT 160-4.5 MCG INHALER INHALATION SCH ×2 (07:44→20:55)
[2020-05-24] MEDS: TIOTROPIUM 2.5 MCG INHALER INHALATION SCH (07:44)
[2020-05-24] MEDS: CHOLECALCIFEROL 25 MCG (1000 IU) TABLET PO SCH (08:20)
[2020-05-24] MEDS: METOPROLOL TARTRATE 50 MG TAB PO SCH (08:20)
[2020-05-24] MEDS ORDERED: FUROSEMIDE 40 MG TAB PO SCH (09:00)
[2020-05-24] MEDS: MAGNESIUM OXIDE 400 MG TAB PO SCH (12:02)
[2020-05-24] MEDS: RIVAROXABAN 20 MG TAB PO SCH (12:41)
[2020-05-24] MEDS: HYDROcodone/APAP 5-325MG 1 EACH TAB PO PRN ×2 (12:41→18:09)
[2020-05-24 12:48] LABS: Anisocytosis Slight; Basophils % (A) 1 %; Eosinophils % (A) 1 %; HCT 42.4 % (34.0-46.0); HGB 13.6 gm/dL (11.4-16.0); Lymphocytes # (A) 1.3 k/uL (1.0-4.8); Lymphocytes % (A) 20 %; MCH 26.3 pg (25.0-35.0); MCV 82.1 fL (80.0-100.0); Mean Platelet Volume 8.2; Monocytes # (A) 0.6 k/uL (0-1.0); Monocytes % (A) 9 %; Neutrophils # (A) 4.4 k/uL (1.3-7.7); Neutrophils % (A) 67 %; Platelet Count 203 k/uL (150-450); RBC 5.17 m/uL (3.80-5.40); RDW 16.8 % (11.5-15.5); WBC 6.6 k/uL (3.8-10.6)
[2020-05-24 17:25] LABS: African American GFR (CKD) 31.6 (60.0-200.0); Anion Gap 15.3 mmol/L (4.00-12.00); C Reactive Protein 4.2 mg/dL (0.0-0.8); Calcium 8.7 mg/dL (8.7-10.3); Carbon Dioxide 16.7 mmol/L (21.6-31.8); Non-African American GFR(CKD) 27.2 (60.0-200.0); Potassium 4.2 mmol/L (3.5-5.5)
[2020-05-24] MEDS ORDERED: RIVAROXABAN 20 MG TAB PO SCH (17:30)
[2020-05-24 17:39] LABS: Ferritin 356.2 ng/mL (10.0-291.0)
[2020-05-24] MEDS: ZINC SULFATE 220 MG CAP PO SCH (18:10)
[2020-05-24] MEDS: dexAMETHasone 2 MG TAB PO SCH (18:10)
[2020-05-24] MEDS: allopurinoL 100 MG TAB PO SCH (21:33)
[2020-05-24] MEDS: ASPIRIN 81 MG PO SCH (21:33)
[2020-05-24] MEDS: ATORVASTATIN 40 MG TAB PO SCH (21:33)
[2020-05-24] MEDS: ASCORBIC ACID 500 MG TAB PO SCH (21:33)
--- NOTE | 2020-05-24 23:11 | P.HPIM ---
History of Present Illness H&P Date: 05/24/20 Patient is a 74-year-old female with a known history of paroxysmal atrial fibrillation on anticoagulation with Xarelto, COPD, hearing disorder/deafness, history of SD, history of permanent pacemaker placement, osteoarthritis and previous history of smoking presents to ER with complaints of nausea, vomiting and diarrhea. Patient states that she has been having symptoms for the past 1 week and felt very weak. She is not able to have good oral intake due to nausea persistently. Denied any complaints of fever or chills. No complaints of chest pain worsening shortness of breath. No headache or dizziness or lightheadedness. Patient felt very weak and fatigued. Chest x-ray showed there is some pulmonary interstitial fibrosis. There is increasing left lung pulmonary interstitial infiltrate compared to old exam and consistent with acute pneumonia. No overt heart failure. KUB x-ray showed nonacute abdomen. Patient was hypoxic with pulse ox 87% on room air. Afebrile. Laboratory showed BUN 37, creatinine 1.89 Elevated inflammatory markers Amylase 134 and lipase was 558 Urinalysis showed cloudy with trace ketones. Coronavirus PCR detected. WBC 4.6, hemoglobin 13.5 and platelets 195 Review of Systems Constitutional: Patient denies any fever or chills . Patient does have generalized weakness and malaise.. Abdomen: Patient does have intractable nausea vomiting and diarrhea. Denied any abdominal pain.. Cardiovascular: Patient denies any chest pain or short of breath no palpitations. Respiratory: patient denied any cough or sputum production. No shortness of breath Neurologic: Patient denied any numbness or tingling headache. Musculoskeletal: Patient denies any complaints of joint swelling or deformity. Skin: Negative Psychiatric: Negative Endocrine: No heat or cold intolerance. No recent weight gain. Genitourinary: No dysuria or hematuria. All other 14 point ROS negative except the above Past Medical History Past Medical History: Atrial Fibrillation, Asthma, Coronary Artery Disease (CAD), Cancer, COPD, Eye Disorder, Hearing Disorder / Deafness, Myocardial Infarction ([place]), Osteoarthritis (OA), Pneumonia, Thyroid Disorder Additional Past Medical History / Comment(s): See Dr Trimble's H&P, Gout, hiatal hernia, Macular Degeneration, Skin Cancer, degenerative disc disease, osteoporosis. UTI 07/01/19. Last Myocardial Infarction Date:: 2011 History of Any Multi-Drug Resistant Organisms: None Reported Past Surgical History: Cardiac Ablation, Cholecystectomy, Heart Catheterization With Stent, Hysterectomy, Orthopedic Surgery, Pacemaker, Tonsillectomy Additional Past Surgical History / Comment(s): Right shoulder surgery, left wrist surgery. Thyroid Nodule removed, sylvia Cataracts, LOOP RECORDER-11/23/17; CHRIO ABLATION 03/08/18 WITH CARDIOVERSION Past Anesthesia/Blood Transfusion Reactions: No Reported Reaction Date of Last Stent Placement:: 2011 Type of Cardiac Device: Permanent Pacemaker Device Placement Date:: 07/2019 Past Psychological History: No Psychological Hx Reported Smoking Status: Former smoker Past Alcohol Use History: None Reported Additional Past Alcohol Use History / Comment(s): started smoking at age 15(1961) and quit 2006, smoked 2ppd Past Drug Use History: None Reported - Past Family History Mother Family Medical History: Cancer, Congestive Heart Failure (CHF), Myocardial Infarction ([place]), Pneumonia, Pulmonary Embolus Additional Family Medical History / Comment(s): breast CA Father Family Medical History: CVA/TIA, Myocardial Infarction ([place]) Medications and Allergies Home Medications Medication Instructions Recorded Confirmed Type Albuterol Sulfate [Ventolin HFA] 2 puff INHALATION RT-QID PRN 08/11/13 05/23/20 History Vit C/E/Zn/Coppr/Lutein/Zeaxan 1 cap PO BID 03/02/15 05/23/20 History [Preservision Areds 2 Softgel] Atorvastatin [Lipitor] 40 mg PO HS #30 tab 03/04/15 05/23/20 Rx Magnesium Oxide [Mag-Ox] 250 mg PO DAILY 08/30/17 05/23/20 History guaiFENesin [Mucinex] 600 mg PO BID PRN 08/30/17 05/23/20 History Rivaroxaban [Xarelto] 20 mg PO DAILY 09/11/17 05/23/20 History Levothyroxine Sodium [Synthroid] 75 mcg PO DAILY@0600 10/22/18 05/23/20 History allopurinoL [Zyloprim] 100 mg PO HS 10/22/18 05/23/20 History Fluticasone/Umeclidin/Vilanter 1 puff INHALATION RT-DAILY 07/01/19 05/23/20 History [Trelegy Ellipta 100-62.5-25] Ipratropium Nebulized [Atrovent 0.5 mg INHALATION RT-TID 07/01/19 05/23/20 History Nebulized 0.2 MG/ML] Aspirin [[place] Aspirin EC] 81 mg PO HS 08/09/19 05/23/20 History Budesonide [Pulmicort] 0.5 mg INHALATION RT-BID 08/09/19 05/23/20 History Furosemide [Lasix] 40 mg PO DAILY #90 tablet 09/19/19 05/23/20 Rx Spironolactone 25 mg PO DAILY #90 tablet 09/19/19 05/23/20 Rx Cholecalciferol [Vitamin D3 (25 25 mcg PO DAILY 05/23/20 05/23/20 History Mcg = 1000 Iu)] Metoprolol Tartrate [Lopressor] 50 mg PO DAILY 05/23/20 05/23/20 History Allergies Allergy/AdvReac Type Severity Reaction Status Date / Time codeine Allergy Itching Verified 05/23/20 17:01 Physical Exam Vitals: Vital Signs Temp Pulse Pulse Resp BP BP Pulse Ox 05/24/20 08:26 64 93 L 05/24/20 08:00 20 05/24/20 07:57 20 97 05/24/20 07:50 97.9 F 90 24 128/70 86 L 05/24/20 03:05 98.6 F 69 18 95/61 96 05/23/20 19:44 97.8 F 86 18 128/74 87 L 05/23/20 17:41 97.6 F 75 14 102/63 94 L 05/23/20 17:11 97.2 F L 05/23/20 17:05 63 20 121/70 95 05/23/20 14:45 98.6 F 80 22 126/62 93 L Intake and Output 05/23/20 05/24/20 05/24/20 21:59 06:59 14:59 Intake Total 300 Balance 300 Intake: Oral 300 Other: Voiding Method Toilet # Voids Weight PHYSICAL EXAMINATION: Patient is lying in the bed comfortably, no acute distress, awake alert and oriented.. HEENT: Normocephalic. Neck is supple. Pupils reactive. Nostrils clear. Oral cavity is moist. Ears reveal no drainage. Neck reveals no JVD, carotid bruits, or thyromegaly. CHEST EXAMINATION: Trachea is central. Symmetrical expansion. Patient does have bilateral coarse breath sounds. Mild expiratory wheeze.. CARDIAC: Normal S1, S2 with no gallops. No murmurs ABDOMEN: Soft. Bowel sounds normal. No organomegaly. No abdominal bruits. Extremities: reveal no edema. No clubbing or cyanosis Neurologically awake, alert, oriented x3 with well-coordinated movements. No focal deficits noted Skin: No rash or skin lesions. Psychiatric: Coperative. Nonsuicidal Musculoskeletal: No joint swelling or deformity. Normal range of motion. Results CBC & Chem 7: 05/24/20 12:15 05/24/20 12:15 Labs: Abnormal Lab Results - Last 24 Hours (Table) 05/23/20 05/23/20 05/23/20 Range/Units 15:09 15:09 15:09 RDW 16.7 H (11.5-15.5) % Sodium 135 L (137-145) mmol/L Carbon Dioxide 15 L (22-30) mmol/L BUN 37 H (7-17) mg/dL Creatinine 1.89 H (0.52-1.04) mg/dL Glucose 105 H (74-99) mg/dL AST 68 H (14-36) U/L Amylase 134 H (30-110) U/L Lipase 558 H (23-300) U/L Urine Appearance Cloudy H (Clear) Urine Protein 2+ H (Negative) Urine Ketones Trace H (Negative) Urine Blood Trace H (Negative) Urine Bacteria Rare H (None) /hpf Hyaline Casts 13 H (0-2) /lpf Urine Mucus Rare H (None) /hpf Coronavirus (PCR) (Not Detectd) 05/23/20 Range/Units 16:58 RDW (11.5-15.5) % Sodium (137-145) mmol/L Carbon Dioxide (22-30) mmol/L BUN (7-17) mg/dL Creatinine (0.52-1.04) mg/dL Glucose (74-99) mg/dL AST (14-36) U/L Amylase (30-110) U/L Lipase (23-300) U/L Urine Appearance (Clear) Urine Protein (Negative) Urine Ketones (Negative) Urine Blood (Negative) Urine Bacteria (None) /hpf Hyaline Casts (0-2) /lpf Urine Mucus (None) /hpf Coronavirus (PCR) Detected A (Not Detectd) Thrombosis Risk Factor Assmnt - DVT/VTE Prophylaxis DVT/VTE Prophylaxis: Pharmacologic Prophylaxis ordered - Choose All That Apply Each Risk Factor Represents 2 Points: Age 61-74 years Thrombosis Risk Factor Assessment Total Risk Factor Score: 2 Thrombosis Risk Factor Assessment Level: Low Risk Assessment and Plan Assessment: Acute COVID-19 pneumonia Acute hypoxic respiratory failure Intractable nausea and vomiting and diarrhea due to viral gastroenteritis. Elevated inflammatory markers secondary to COVID-19 Mild acute pancreatitis Hypovolemic hyponatremia Acute kidney injury likely prerenal Non-anion gap metabolic acidosis secondary to acute kidney injury COPD not in exacerbation Coronary artery disease with history of stent placement History of cardiac ablation and permanent pacemaker placement Paroxysmal atrial fibrillation on anticoagulation with Xarelto Hearing disorder/deafness likely history of SD Hiatal hernia Macular degeneration Degenerative disc disease Previous history of smoking Plan: Patient will be continued on IV hydration and monitor renal function. Continue with breathing treatments and will be started on dexamethasone 6 mg daily, continue with Xarelto and multivitamins. Pulmonary service will be consulted. Continue symptomatic management and further recommendations based on the clinical course. Prognosis guarded at this time.
[2020-05-25] MEDS: HYDROcodone/APAP 5-325MG 1 EACH TAB PO PRN (02:46)
[2020-05-25] MEDS: LEVOTHYROXINE 75 MCG TAB PO SCH (05:26)
[2020-05-25] MEDS: METOPROLOL TARTRATE 50 MG TAB PO SCH (08:23)
[2020-05-25] MEDS: ALBUTEROL HFA INHALER INHALATION SCH ×4 (08:23→20:14)
[2020-05-25] MEDS: CHOLECALCIFEROL 25 MCG (1000 IU) TABLET PO SCH (08:23)
[2020-05-25] MEDS: RIVAROXABAN 20 MG TAB PO SCH (08:23)
[2020-05-25] MEDS: ZINC SULFATE 220 MG CAP PO SCH (08:23)
[2020-05-25] MEDS: dexAMETHasone 2 MG TAB PO SCH (08:23)
[2020-05-25] MEDS: TIOTROPIUM 2.5 MCG INHALER INHALATION SCH (08:23)
[2020-05-25] MEDS: SYMBICORT 160-4.5 MCG INHALER INHALATION SCH ×2 (08:23→20:14)
[2020-05-25] MEDS: ASCORBIC ACID 500 MG TAB PO SCH ×2 (08:23→21:31)
[2020-05-25] MEDS: SODIUM CHLORIDE 0.9% 1,000 ML IV SCH (08:25)
[2020-05-25 09:35] LABS: African American GFR (CKD) 39.4 (60.0-200.0); Anion Gap 11.7 mmol/L (4.00-12.00); BUN/Creat Ratio 28.67 Ratio (12.00-20.00); Calcium 8.1 mg/dL (8.7-10.3); Carbon Dioxide 16.3 mmol/L (21.6-31.8); Potassium 4.7 mmol/L (3.5-5.5)
--- NOTE | 2020-05-25 11:19 | P.CNPUL ---
History of Present Illness Consult date: 05/25/20 Reason for consult: dyspnea, cough, hypoxemia, pneumonia Chief complaint: Shortness of breath and cough for several weeks History of present illness: This is a 74-year-old morbidly obese female with history of severe COPD oxygen dependent, patient has been having increased cough congestion or shortness of breath for last 2-3 week, was found to be positive for covid, she also found to be positive few days ago came into the hospital for increased symptoms now she is out of REMdesivir window currently she is being treated with Decadron bronchodilators and direct oral anticoagulants Review of Systems All systems: negative Past Medical History Past Medical History: Atrial Fibrillation, Asthma, Coronary Artery Disease (CAD), Cancer, COPD, Eye Disorder, Hearing Disorder / Deafness, Myocardial Infarction ([place]), Osteoarthritis (OA), Pneumonia, Thyroid Disorder Additional Past Medical History / Comment(s): See Dr Trimble's H&P, Gout, hiatal hernia, Macular Degeneration, Skin Cancer, degenerative disc disease, osteoporosis. UTI 07/01/19. Last Myocardial Infarction Date:: 2011 History of Any Multi-Drug Resistant Organisms: None Reported Past Surgical History: Cardiac Ablation, Cholecystectomy, Heart Catheterization With Stent, Hysterectomy, Orthopedic Surgery, Pacemaker, Tonsillectomy Additional Past Surgical History / Comment(s): Right shoulder surgery, left wrist surgery. Thyroid Nodule removed, sylvia Cataracts, LOOP RECORDER-11/23/17; CHRIO ABLATION 03/08/18 WITH CARDIOVERSION Past Anesthesia/Blood Transfusion Reactions: No Reported Reaction Date of Last Stent Placement:: 2011 Type of Cardiac Device: Permanent Pacemaker Device Placement Date:: 07/2019 Past Psychological History: No Psychological Hx Reported Smoking Status: Former smoker Past Alcohol Use History: None Reported Additional Past Alcohol Use History / Comment(s): started smoking at age 15(1961) and quit 2006, smoked 2ppd Past Drug Use History: None Reported - Past Family History Mother Family Medical History: Cancer, Congestive Heart Failure (CHF), Myocardial Infarction ([place]), Pneumonia, Pulmonary Embolus Additional Family Medical History / Comment(s): breast CA Father Family Medical History: CVA/TIA, Myocardial Infarction ([place]) Medications and Allergies Home Medications Medication Instructions Recorded Confirmed Type Albuterol Sulfate [Ventolin HFA] 2 puff INHALATION RT-QID PRN 08/11/13 05/23/20 History Vit C/E/Zn/Coppr/Lutein/Zeaxan 1 cap PO BID 03/02/15 05/23/20 History [Preservision Areds 2 Softgel] Atorvastatin [Lipitor] 40 mg PO HS #30 tab 03/04/15 05/23/20 Rx Magnesium Oxide [Mag-Ox] 250 mg PO DAILY 08/30/17 05/23/20 History guaiFENesin [Mucinex] 600 mg PO BID PRN 08/30/17 05/23/20 History Rivaroxaban [Xarelto] 20 mg PO DAILY 09/11/17 05/23/20 History Levothyroxine Sodium [Synthroid] 75 mcg PO DAILY@0600 10/22/18 05/23/20 History allopurinoL [Zyloprim] 100 mg PO HS 10/22/18 05/23/20 History Fluticasone/Umeclidin/Vilanter 1 puff INHALATION RT-DAILY 07/01/19 05/23/20 History [Trelegy Ellipta 100-62.5-25] Ipratropium Nebulized [Atrovent 0.5 mg INHALATION RT-TID 07/01/19 05/23/20 His tory Nebulized 0.2 MG/ML] Aspirin [[place] Aspirin EC] 81 mg PO HS 08/09/19 05/23/20 History Budesonide [Pulmicort] 0.5 mg INHALATION RT-BID 08/09/19 05/23/20 History Furosemide [Lasix] 40 mg PO DAILY #90 tablet 09/19/19 05/23/20 Rx Spironolactone 25 mg PO DAILY #90 tablet 09/19/19 05/23/20 Rx Cholecalciferol [Vitamin D3 (25 25 mcg PO DAILY 05/23/20 05/23/20 History Mcg = 1000 Iu)] Metoprolol Tartrate [Lopressor] 50 mg PO DAILY 05/23/20 05/23/20 History Allergies Allergy/AdvReac Type Severity Reaction Status Date / Time codeine Allergy Itching Verified 05/23/20 17:01 Physical Exam Vitals: Vital Signs Temp Pulse Resp BP Pulse Ox 05/25/20 07:00 97.9 F 63 20 127/60 95 05/25/20 02:00 97.7 F 83 21 125/71 96 05/24/20 20:00 98.7 F 65 20 101/70 95 05/24/20 16:13 63 97 05/24/20 15:14 97.8 F 05/24/20 14:55 97.8 F 60 18 103/65 95 05/24/20 14:00 63 18 05/24/20 12:19 64 93 L Intake and Output 05/24/20 05/25/20 05/25/20 22:59 06:59 14:59 Other: Voiding Method Bedside Commode Bedside Commode Bedside Commode # Voids 1 2 1 - Constitutional General appearance: disheveled, morbidly obese - EENT Eyes: PERRLA Ears: bilateral: normal - Neck Neck: normal ROM Carotids: bilateral: upstroke normal Thyroid: bilateral: normal size - Respiratory Respiratory: bilateral: diminished - Cardiovascular Rhythm: regular Heart sounds: normal: S1, S2 - Gastrointestinal General gastrointestinal: normal bowel sounds - Integumentary Integumentary: normal turgor - Neurologic Neurologic: CNII-XII intact - Musculoskeletal Musculoskeletal: gait normal, generalized weakness, strength equal bilaterally - Psychiatric Psychiatric: A&O x's 3, appropriate affect, intact judgment & insight Results - Laboratory Findings CBC and BMP: 05/24/20 12:15 05/25/20 04:10 PT/INR, D-dimer D-Dimer 1.47 mg/L FEU (<0.60) H 05/24/20 12:15 Abnormal lab findings: Abnormal Labs 05/23/20 05/23/20 05/23/20 15:09 15:09 15:09 RDW 16.7 H D-Dimer Sodium 135 L Carbon Dioxide 15 L Anion Gap BUN 37 H Creatinine 1.89 H Est GFR (CKD-EPI)AfAm Est GFR (CKD-EPI)NonAf BUN/Creatinine Ratio Glucose 105 H Calcium Ferritin AST 68 H Lactate Dehydrogenase C-Reactive Protein Amylase 134 H Lipase 558 H Urine Appearance Cloudy H Urine Protein 2+ H Urine Ketones Trace H Urine Blood Trace H Urine Bacteria Rare H Hyaline Casts 13 H Urine Mucus Rare H Coronavirus (PCR) 05/23/20 05/24/20 05/24/20 16:58 12:15 12:15 RDW 16.8 H D-Dimer 1.47 H Sodium Carbon Dioxide Anion Gap BUN Creatinine Est GFR (CKD-EPI)AfAm Est GFR (CKD-EPI)NonAf BUN/Creatinine Ratio Glucose Calcium Ferritin AST Lactate Dehydrogenase C-Reactive Protein Amylase Lipase Urine Appearance Urine Protein Urine Ketones Urine Blood Urine Bacteria Hyaline Casts Urine Mucus Coronavirus (PCR) Detected A 05/24/20 05/25/20 12:15 04:10 RDW D-Dimer Sodium Carbon Dioxide 16.7 L 16.3 L Anion Gap 15.30 H BUN 45.0 H 43.0 H Creatinine 1.8 H Est GFR (CKD-EPI)AfAm 31.6 L 39.4 L Est GFR (CKD-EPI)NonAf 27.2 L 34.0 L BUN/Creatinine Ratio 25.00 H 28.67 H Glucose 178 H Calcium 8.1 L Ferritin 356.2 H AST Lactate Dehydrogenase 468 H C-Reactive Protein 4.2 H Amylase Lipase Urine Appearance Urine Protein Urine Ketones Urine Blood Urine Bacteria Hyaline Casts Urine Mucus Coronavirus (PCR) - Diagnostic Findings Chest x-ray: report reviewed, image reviewed (Interstitial infiltrate cannot be excluded) Assessment and Plan Assessment: Acute covid 19 pneumonia Acute on chronic hypoxic respiratory failure End-stage severe COPD Chronic congestive heart failure combination of systolic and diastolic Chronic atrial fibrillation on direct oral anticoagulants Morbid obesity and likely obstructive sleep apnea patient however refused polysomnogram Plan: Continue bronchodilator Supplemental oxygen Decadron Deep breathing exercises and incentive spirometry Patient is out of window of IV REMdesivir therapy Time with Patient: Greater than 30
[2020-05-25] MEDS: MAGNESIUM OXIDE 400 MG TAB PO SCH (12:05)
--- NOTE | 2020-05-25 13:00 | P.PN ---
Subjective Patient is a 74-year-old female with a known history of paroxysmal atrial fibrillation on anticoagulation with Xarelto, COPD, hearing disorder/deafness, history of [place], history of permanent pacemaker placement, osteoarthritis and previous history of smoking presents to ER with complaints of nausea, vomiting and diarrhea. Patient states that she has been having symptoms for the past 1 week and felt very weak. She is not able to have good oral intake due to nausea persistently. Denied any complaints of fever or chills. No complaints of chest pain worsening shortness of breath. No headache or dizziness or lightheadedness. Patient felt very weak and fatigued. Chest x-ray showed there is some pulmonary interstitial fibrosis. There is inc reasing left lung pulmonary interstitial infiltrate compared to old exam and consistent with acute pneumonia. No overt heart failure. KUB x-ray showed nonacute abdomen. Patient was hypoxic with pulse ox 87% on room air. Afebrile. Laboratory showed BUN 37, creatinine 1.89 Elevated inflammatory markers Amylase 134 and lipase was 558 Urinalysis showed cloudy with trace ketones. Coronavirus PCR detected. WBC 4.6, hemoglobin 13.5 and platelets 195 05/25/2020 This is a pleasant 74 years old female who presents with significant dyspnea on admission the patient could not walk when she came into the hospital she was not able to eat for 7 days because of her dyspnea. 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 She is on 2 L of oxygen at home, she quit smoking in 2006 but she smoked for 40 years. She was hypoxic at 87-93 upon admission and currently she is 95 CBC is unremarkable however her creatinine on admission came back to normal today at 1.5. She still have chronic kidney disease stage III Her lactic dehydrogenase is elevated at 468 and C-reactive protein 4.2. And on exam she has significant wheezing. Currently she is on dexamethasone 6 mg daily, going to change that to Solu- Medrol. Continue with Xarelto. Blood pressure was on the low side yesterday 95/61, patient was on normal saline 75 mg/h which can be stopped today because her blood pressure improved to 127/60, also she is eating and drinking and creatinine improved. Also her diarrhea stopped. Patient continue on home dose of Xarelto for her history of A. fib Review of Systems Constitutional: Patient denies any fever or chills . Patient does have generalized weakness and malaise.. Abdomen: Patient does have intractable nausea vomiting and diarrhea. Denied any abdominal pain.. Cardiovascular: Patient denies any chest pain or short of breath no palpitations. Respiratory: No chest wall tenderness. No hemoptysis muscloskeletal: Patient denies any complaints of joint swelling or deformity. Skin: Negative Psychiatric: Negative Active Medications Generic Name Dose Route Start Last Admin Trade Name Freq PRN Reason Stop Dose Admin Acetaminophen 500 mg 05/23/20 23:32 05/23/20 23:39 Acetaminophen Tab 500 Mg Tab PO 500 mg TID PRN Administration Fever and/ or Pain Hydrocodone Bitart/Acetaminophen 1 each 05/23/20 23:33 05/25/20 02:46 Hydrocodone/Apap 5-325mg 1 Each Tab PO 1 each TID PRN Administration Pain Albuterol Sulfate 2 puff 05/24/20 08:00 05/25/20 11:51 Albuterol Hfa Inhaler INHALATION 2 puff RT-QID MILAN Administration Albuterol Sulfate 2 puff 05/23/20 20:20 Albuterol Hfa Inhaler INHALATION RT-QID PRN Shortness Of Breath Or Wheezing Allopurinol 100 mg 05/23/20 21:00 05/24/20 21:33 Allopurinol 100 Mg Tab PO 100 mg HS MILAN Administration Ascorbic Acid 250 mg 05/24/20 21:00 05/25/20 08:23 Ascorbic Acid 500 Mg Tab PO 250 mg BID MILAN Administration Aspirin 81 mg 05/23/20 21:00 05/24/20 21:33 Aspirin 81 Mg PO 81 mg HS MILAN Administration Atorvastatin Calcium 40 mg 05/23/20 21:00 05/24/20 21:33 Atorvastatin 40 Mg Tab PO 40 mg HS MILAN Administration Budesonide/Formoterol Fumarate 2 puff 05/24/20 08:00 05/25/20 08:23 Symbicort 160-4.5 Mcg Inhaler INHALATION 2 puff RT-BID MILAN Administration Cholecalciferol 25 mcg 05/24/20 09:00 05/25/20 08:23 Cholecalciferol 25 Mcg (1000 Iu) Tablet PO 25 mcg DAILY MILAN Administration Dexamethasone 6 mg 05/24/20 17:00 05/25/20 08:23 Dexamethasone 2 Mg Tab PO 6 mg DAILY MILAN Administration Guaifenesin 600 mg 05/23/20 17:58 Guaifenesin 600 Mg Tablet.Er PO BID PRN Congestion Sodium Chloride 1,000 mls @ 75 mls/hr 05/23/20 16:45 05/25/20 08:25 Saline 0.9% IV 75 mls/hr .[id number] MILAN Administration Levothyroxine Sodium 75 mcg 05/24/20 06:00 05/25/20 05:26 Levothyroxine 75 Mcg Tab PO 75 mcg DAILY@0600 MILAN Administration Magnesium Oxide 400 mg 05/24/20 12:00 05/25/20 12:05 Magnesium Oxide 400 Mg Tab PO 400 mg DAILY@1200 [facility] Administration Metoprolol Tartrate 50 mg 05/24/20 09:00 05/25/20 08:23 Metoprolol Tartrate 50 Mg Tab PO 50 mg DAILY MILAN Administration Naloxone HCl 0.2 mg 05/23/20 16:34 Naloxone 0.4 Mg/Ml 1 Ml Vial IV Q2M PRN Opioid Reversal Ondansetron HCl 4 mg 05/23/20 16:34 Ondansetron 4 Mg/2 Ml Vial IVP Q8HR PRN Nausea And Vomiting Rivaroxaban 15 mg 05/26/20 07:30 Rivaroxaban 15 Mg Tab PO AC-BRKFST [facility] Tiotropium [place] 2 puff 05/23/20 21:00 05/25/20 08:23 Tiotropium 2.5 Mcg Inhaler INHALATION 2 puff DAILY [facility] Administration Zinc Sulfate 220 mg 05/24/20 17:00 05/25/20 08:23 Zinc Sulfate 220 Mg Cap PO 220 mg DAILY MILAN Administration Objective - Vital Signs Vital signs: Vital Signs Temp 97.9 F 05/25/20 07:00 Pulse 63 05/25/20 07:00 Resp 20 05/25/20 07:00 BP 127/60 05/25/20 07:00 Pulse Ox 95 05/25/20 07:00 Intake & Output 05/24/20 05/25/20 05/25/20 18:59 06:59 18:59 Intake Total 300 Balance 300 Intake: Oral 300 Other: Voiding Method Toilet Bedside Commode Bedside Commode # Voids 1 2 1 - Exam -GENERAL: The patient is alert and oriented x3, in mild acute distress. Well developed, well nourished. HEENT: Pupils are round and equally reacting to light. EOMI. No scleral icterus. No conjunctival pallor. Normocephalic, atraumatic. No pharyngeal erythema. No thyromegaly. CARDIOVASCULAR: S1 and S2 present. No murmurs, rubs, or gallops. -PULMONARY: Chest is clear to auscultation, bilateral expiratory wheezing. He is tachypneic 20-22. ABDOMEN: Soft, nontender, nondistended, normoactive bowel sounds. No palpable organomegaly. MUSCULOSKELETAL: No joint swelling or deformity. EXTREMITIES: No cyanosis, clubbing, or pedal edema. NEUROLOGICAL: Gross neurological examination did not reveal any focal deficits. SKIN: No rashes. no petechiae. - Labs CBC & Chem 7: 05/24/20 12:15 05/25/20 04:10 Labs: Abnormal Lab Results - Last 24 Hours (Table) 05/24/20 05/24/20 05/25/20 Range/Units 12:15 12:15 04:10 RDW 16.8 H (11.5-15.5) % Carbon Dioxide 16.7 L 16.3 L (21.6-31.8) mmol/L Anion Gap 15.30 H (4.00-12.00) mmol/L BUN 45.0 H 43.0 H (9.0-27.0) mg/dL Creatinine 1.8 H (0.6-1.5) mg/dL Est GFR (CKD-EPI)AfAm 31.6 L 39.4 L (60.0-200.0) Est GFR (CKD-EPI)NonAf 27.2 L 34.0 L (60.0-200.0) BUN/Creatinine Ratio 25.00 H 28.67 H (12.00-20.00) Ratio Glucose 178 H (70-110) mg/dL Calcium 8.1 L (8.7-10.3) mg/dL Ferritin 356.2 H (10.0-291.0) ng/mL Lactate Dehydrogenase 468 H (120-246) U/L C-Reactive Protein 4.2 H (0.0-0.8) mg/dL Assessment and Plan Assessment: Acute COVID-19 pneumonia Acute COPD exacerbation Acute hypoxic respiratory failure Intractable nausea and vomiting and diarrhea due to viral gastroenteritis. Elevated inflammatory markers secondary to COVID-19 Acute kidney injury likely prerenal. Improving Chronic kidney disease stage II to III Coronary artery disease with history of stent placement History of cardiac ablation and permanent pacemaker placement Paroxysmal atrial fibrillation on anticoagulation with Xarelto Hearing disorder/deafness likely history of [place] Hiatal hernia Macular degeneration Degenerative disc disease Previous history of smoking Plan: This is a pleasant 74 years old female who presents with COPD and Covid pneumonia. Continue with steroids and change it to Solu-Medrol. At doxycycline. Stop IV fluids and monitor blood pressure. Pulmonary team on the case Labs and medication were reviewed.. Continue same treatment. Continue with symptomatic treatment. Resume home medication. Monitor lytes and vitals. DVT and GI prophylaxis. Further recommendations depends on the clinical course of the patient DVT prophylaxis: Xarelto GI Prophylaxis: Ppi PT/OT: Pending Prognosis is guarded
[2020-05-25] MEDS: DOXYCYCLINE 100 MG CAP PO SCH ×2 (14:12→21:32)
[2020-05-25] MEDS: PANTOPRAZOLE 40 MG TABLET PO SCH (14:12)
[2020-05-25] MEDS: methylPREDNISolone SOD SUCCI 125 MG/2 ML VIAL IV SCH ×2 (16:16→23:46)
[2020-05-25] MEDS: ASPIRIN 81 MG PO SCH (21:31)
[2020-05-25] MEDS: allopurinoL 100 MG TAB PO SCH (21:32)
[2020-05-25] MEDS: ATORVASTATIN 40 MG TAB PO SCH (21:32)
[2020-05-26] MEDS: LEVOTHYROXINE 75 MCG TAB PO SCH ×2 (05:04→05:05)
[2020-05-26] MEDS: TIOTROPIUM 2.5 MCG INHALER INHALATION SCH (07:12)
[2020-05-26] MEDS: ALBUTEROL HFA INHALER INHALATION SCH ×4 (07:12→21:37)
[2020-05-26] MEDS: SYMBICORT 160-4.5 MCG INHALER INHALATION SCH ×2 (07:12→21:37)
[2020-05-26] MEDS: ZINC SULFATE 220 MG CAP PO SCH (08:28)
[2020-05-26] MEDS: CHOLECALCIFEROL 25 MCG (1000 IU) TABLET PO SCH (08:28)
[2020-05-26] MEDS: ASCORBIC ACID 500 MG TAB PO SCH ×2 (08:28→20:09)
[2020-05-26] MEDS: methylPREDNISolone SOD SUCCI 125 MG/2 ML VIAL IV SCH ×3 (08:28→23:49)
[2020-05-26] MEDS: DOXYCYCLINE 100 MG CAP PO SCH ×2 (08:28→20:10)
[2020-05-26] MEDS: METOPROLOL TARTRATE 50 MG TAB PO SCH (08:28)
[2020-05-26] MEDS: PANTOPRAZOLE 40 MG TABLET PO SCH (08:28)
[2020-05-26] MEDS: RIVAROXABAN 15 MG TAB PO SCH (08:29)
[2020-05-26] MEDS: MAGNESIUM OXIDE 400 MG TAB PO SCH (08:29)
[2020-05-26 10:29] LABS: African American GFR (CKD) 57.3 (60.0-200.0); Anion Gap 10.9 mmol/L (4.00-12.00); BUN/Creat Ratio 36.36 Ratio (12.00-20.00); Calcium 8.4 mg/dL (8.7-10.3); Carbon Dioxide 16.1 mmol/L (21.6-31.8); Non-African American GFR(CKD) 49.4 (60.0-200.0); Potassium 4.9 mmol/L (3.5-5.5)
--- NOTE | 2020-05-26 12:22 | P.PN ---
Subjective Progress Note Date: 05/26/20 Principal diagnosis: Acute covid 19 pneumonia Acute on chronic hypoxic respiratory failure End-stage severe COPD Chronic congestive heart failure combination of systolic and diastolic Chronic atrial fibrillation on direct oral anticoagulants Morbid obesity and likely obstructive sleep apnea patient however refused polysomnogram 05/26/2020, patient seen eval examined during the rounds labs reviewed medications reviewed care plan discussed respite status slightly better, patient would like to go home tomorrow if remains stable, This is a 74-year-old morbidly obese female with history of severe COPD oxygen dependent, patient has been having increased cough congestion or shortness of breath for last 2-3 week, was found to be positive for covid, she also found to be positive few days ago came into the hospital for increased symptoms now she is out of REMdesivir window currently she is being treated with Decadron bronchodilators and direct oral anticoagulants Objective - Vital Signs Vital signs: Vital Signs Temp 97.8 F 05/26/20 07:13 Pulse 62 05/26/20 07:13 Resp 20 05/26/20 07:13 BP 129/69 05/26/20 07:13 Pulse Ox 93 L 05/26/20 10:34 Intake & Output 05/25/20 05/26/20 05/26/20 18:59 06:59 18:59 Intake Total 238 720 Balance 238 720 Intake: Oral 238 720 Other: Voiding Method Bedside Commode Bedside Commode Bedside Commode # Voids 1 1 - Exam - Constitutional General appearance: disheveled, morbidly obese - EENT Eyes: PERRLA Ears: bilateral: normal - Neck Neck: normal ROM Carotids: bilateral: upstroke normal Thyroid: bilateral: normal size - Respiratory Respiratory: bilateral: diminished - Cardiovascular Rhythm: regular Heart sounds: normal: S1, S2 - Gastrointestinal General gastrointestinal: normal bowel sounds - Integumentary Integumentary: normal turgor - Neurologic Neurologic: CNII-XII intact - Musculoskeletal Musculoskeletal: gait normal, generalized weakness, strength equal bilaterally - Psychiatric Psychiatric: A&O x's 3, appropriate affect, intact judgment & insight - Labs CBC & Chem 7: 05/24/20 12:15 05/26/20 04:09 Labs: Abnormal Lab Results - Last 24 Hours (Table) 05/26/20 Range/Units 04:09 Chloride 110 H (96-109) mmol/L Carbon Dioxide 16.1 L (21.6-31.8) mmol/L BUN 40.0 H (9.0-27.0) mg/dL Est GFR (CKD-EPI)AfAm 57.3 L (60.0-200.0) Est GFR (CKD-EPI)NonAf 49.4 L (60.0-200.0) BUN/Creatinine Ratio 36.36 H (12.00-20.00) Ratio Glucose 152 H (70-110) mg/dL Calcium 8.4 L (8.7-10.3) mg/dL Assessment and Plan Assessment: Acute covid 19 pneumonia Acute on chronic hypoxic respiratory failure End-stage severe COPD Chronic congestive heart failure combination of systolic and diastolic Chronic atrial fibrillation on direct oral anticoagulants Morbid obesity and likely obstructive sleep apnea patient however refused polysomnogram Plan: Continue bronchodilator Supplemental oxygen Decadron Deep breathing exercises and incentive spirometry Patient is out of window of IV REMdesivir therapy Time with Patient: Greater than 30
--- NOTE | 2020-05-26 12:33 | P.PN ---
Subjective Patient is a 74-year-old female with a known history of paroxysmal atrial fibrillation on anticoagulation with Xarelto, COPD, hearing disorder/deafness, history of [place], history of permanent pacemaker placement, osteoarthritis and previous history of smoking presents to ER with complaints of nausea, vomiting and diarrhea. Patient states that she has been having symptoms for the past 1 week and felt very weak. She is not able to have good oral intake due to nausea persistently. Denied any complaints of fever or chills. No complaints of chest pain worsening shortness of breath. No headache or dizziness or lightheadedness. Patient felt very weak and fatigued. Chest x-ray showed there is some pulmonary interstitial fibrosis. There is inc reasing left lung pulmonary interstitial infiltrate compared to old exam and consistent with acute pneumonia. No overt heart failure. KUB x-ray showed nonacute abdomen. Patient was hypoxic with pulse ox 87% on room air. Afebrile. Laboratory showed BUN 37, creatinine 1.89 Elevated inflammatory markers Amylase 134 and lipase was 558 Urinalysis showed cloudy with trace ketones. Coronavirus PCR detected. WBC 4.6, hemoglobin 13.5 and platelets 195 05/25/2020 This is a pleasant 74 years old female who presents with significant dyspnea on admission the patient could not walk when she came into the hospital she was not able to eat for 7 days because of her dyspnea. She has history of COPD and f ollow-up with jewel stringer Dr. Leary. She is on 2 L of oxygen at home, she quit smoking in 2006 but she smoked for 40 years. She was hypoxic at 87-93 upon admission and currently she is 95 CBC is unremarkable however her creatinine on admission came back to normal today at 1.5. She still have chronic kidney disease stage III Her lactic dehydrogenase is elevated at 468 and C-reactive protein 4.2. And on exam she has significant wheezing. Currently she is on dexamethasone 6 mg daily, going to change that to Solu- Medrol. Continue with Xarelto. Blood pressure was on the low side yesterday 95/61, patient was on normal saline 75 mg/h which can be stopped today because her blood pressure improved to 127/60, also she is eating and drinking and creatinine improved. Also her diarrhea stopped. Patient continue on home dose of Xarelto for her history of A. fib 05/26/2020 Patient breathing is improving, her oxygen saturation is 92-95% on 2-3 to significant is a cannula however it drops to 87% on exertion, patient may qualify for home oxygen, given her COPD acute exacerbation and covid pneumo catalino, discussed the case with case folderbartender manager team also evaluated the patient and recommended possible discharge tomorrow, if she keeps improving Her creatinine improved to normal today at 1.1, however she still have chronic kidney disease stage III with GFR of 49.4. She feels better after she started on Solu-Medrol 60 mg and doxycycline. Also she remains on vitamin C and zinc and Xarelto We will check repeat chest x-ray and inflammatory markers and d-dimer tomorrow Review of Systems Constitutional: Patient denies any fever or chills . Patient does have generalized weakness and malaise.. Abdomen: Patient does have intractable nausea vomiting and diarrhea. Denied any abdominal pain.. Cardiovascular: Patient denies any chest pain or short of breath no palpitations. Respiratory: No chest wall tenderness. No hemoptysis muscloskeletal: Patient denies any complaints of joint swelling or deformity. Skin: Negative Psychiatric: Negative Active Medications Generic Name Dose Route Start Last Admin Trade Name Freq PRN Reason Stop Dose Admin Acetaminophen 500 mg 05/23/20 23:32 05/23/20 23:39 Acetaminophen Tab 500 Mg Tab PO 500 mg TID PRN Administration Fever and/ or Pain Hydrocodone Bitart/Acetaminophen 1 each 05/23/20 23:33 05/25/20 02:46 Hydrocodone/Apap 5-325mg 1 Each Tab PO 1 each TID PRN Administration Pain Albuterol Sulfate 2 puff 05/24/20 08:00 05/26/20 11:16 Albuterol Hfa Inhaler INHALATION 2 puff RT-QID MILAN Administration Albuterol Sulfate 2 puff 05/23/20 20:20 Albuterol Hfa Inhaler INHALATION RT-QID PRN Shortness Of Breath Or Wheezing Allopurinol 100 mg 05/23/20 21:00 05/25/20 21:32 Allopurinol 100 Mg Tab PO 100 mg HS MILAN Administration Ascorbic Acid 250 mg 05/24/20 21:00 05/26/20 08:28 Ascorbic Acid 500 Mg Tab PO 250 mg BID MILAN Administration Aspirin 81 mg 05/23/20 21:00 05/25/20 21:31 Aspirin 81 Mg PO 81 mg HS MILAN Administration Atorvastatin Calcium 40 mg 05/23/20 21:00 05/25/20 21:32 Atorvastatin 40 Mg Tab PO 40 mg HS MILAN Administration Budesonide/Formoterol Fumarate 2 puff 05/24/20 08:00 05/26/20 07:12 Symbicort 160-4.5 Mcg Inhaler INHALATION 2 puff RT-BID MILAN Administration Cholecalciferol 25 mcg 05/24/20 09:00 05/26/20 08:28 Cholecalciferol 25 Mcg (1000 Iu) Tablet PO 25 mcg DAILY MILAN Administration Doxycycline Monohydrate 100 mg 05/25/20 13:00 05/26/20 08:28 Doxycycline 100 Mg Cap PO 100 mg BID MILAN Administration Guaifenesin 600 mg 05/23/20 17:58 05/26/20 05:15 Guaifenesin 600 Mg Tablet.Er PO 600 mg BID PRN Administration Congestion Levothyroxine Sodium 75 mcg 05/24/20 06:00 05/26/20 05:05 Levothyroxine 75 Mcg Tab PO 75 mcg DAILY@0600 MILAN Administration Magnesium Oxide 400 mg 05/24/20 12:00 05/26/20 08:29 Magnesium Oxide 400 Mg Tab PO 400 mg DAILY@1200 [facility] Administration Methylprednisolone Sodium Succinate 60 mg 05/25/20 16:00 05/26/20 08:28 Methylprednisolone Sod Succi 125 Mg/2 Ml Vial IV 60 mg Q8HR MILAN Administration Metoprolol Tartrate 50 mg 05/24/20 09:00 05/26/20 08:28 Metoprolol Tartrate 50 Mg Tab PO 50 mg DAILY MILAN Administration Naloxone HCl 0.2 mg 05/23/20 16:34 Naloxone 0.4 Mg/Ml 1 Ml Vial IV Q2M PRN Opioid Reversal Ondansetron HCl 4 mg 05/23/20 16:34 Ondansetron 4 Mg/2 Ml Vial IVP Q8HR PRN Nausea And Vomiting Pantoprazole Sodium 40 mg 05/25/20 13:00 05/26/20 08:28 Pantoprazole 40 Mg Tablet PO 40 mg AC-BRKFST MILAN Administration Rivaroxaban 15 mg 05/26/20 07:30 05/26/20 08:29 Rivaroxaban 15 Mg Tab PO 15 mg AC-BRKFST MILAN Administration Tiotropium [place] 2 puff 05/23/20 21:00 05/26/20 07:12 Tiotropium 2.5 Mcg Inhaler INHALATION 2 puff DAILY MILAN Administration Zinc Sulfate 220 mg 05/24/20 17:00 05/26/20 08:28 Zinc Sulfate 220 Mg Cap PO 220 mg DAILY MILAN Administration Objective - Vital Signs Vital signs: Vital Signs Temp 97.8 F 05/26/20 07:13 Pulse 62 05/26/20 07:13 Resp 20 05/26/20 07:13 BP 129/69 05/26/20 07:13 Pulse Ox 93 L 05/26/20 10:34 Intake & Output 05/25/20 05/26/20 05/26/20 18:59 06:59 18:59 Intake Total 238 720 Balance 238 720 Intake: Oral 238 720 Other: Voiding Method Bedside Commode Bedside Commode Bedside Commode # Voids 1 1 - Exam -GENERAL: The patient is alert and oriented x3, in mild acute distress. Well developed, well nourished. HEENT: Pupils are round and equally reacting to light. EOMI. No scleral icterus. No conjunctival pallor. Normocephalic, atraumatic. No pharyngeal erythema. No thyromegaly. CARDIOVASCULAR: S1 and S2 present. No murmurs, rubs, or gallops. -PULMONARY: Chest is clear to auscultation, bilateral expiratory wheezing. He is tachypneic 20-22. ABDOMEN: Soft, nontender, nondistended, normoactive bowel sounds. No palpable organomegaly. MUSCULOSKELETAL: No joint swelling or deformity. EXTREMITIES: No cyanosis, clubbing, or pedal edema. NEUROLOGICAL: Gross neurological examination did not reveal any focal deficits. SKIN: No rashes. no petechiae. - Labs CBC & Chem 7: 05/24/20 12:15 05/26/20 04:09 Labs: Abnormal Lab Results - Last 24 Hours (Table) 05/26/20 Range/Units 04:09 Chloride 110 H (96-109) mmol/L Carbon Dioxide 16.1 L (21.6-31.8) mmol/L BUN 40.0 H (9.0-27.0) mg/dL Est GFR (CKD-EPI)AfAm 57.3 L (60.0-200.0) Est GFR (CKD-EPI)NonAf 49.4 L (60.0-200.0) BUN/Creatinine Ratio 36.36 H (12.00-20.00) Ratio Glucose 152 H (70-110) mg/dL Calcium 8.4 L (8.7-10.3) mg/dL Assessment and Plan Assessment: Acute COVID-19 pneumonia Acute COPD exacerbation Acute hypoxic respiratory failure Intractable nausea and vomiting and diarrhea due to viral gastroenteritis. Elevated inflammatory markers secondary to COVID-19 Acute kidney injury likely prerenal. Improving Chronic kidney disease stage II to III Coronary artery disease with history of stent placement History of cardiac ablation and permanent pacemaker placement Paroxysmal atrial fibrillation on anticoagulation with Xarelto Hearing disorder/deafness likely history of [place] Hiatal hernia Macular degeneration Degenerative disc disease Previous history of smoking Plan: This is a pleasant 74 years old female who presents with COPD and Covid pneumonia. Continue with steroids and change it to Solu-Medrol. At doxycycline . Stop IV fluids and monitor blood pressure. Pulmonary team on the case Labs and medication were reviewed.. Continue same treatment. Continue with symptomatic treatment. Resume home medication. Monitor lytes and vitals. DVT and GI prophylaxis. Further recommendations depends on the clinical course of the patient DVT prophylaxis: Xarelto GI Prophylaxis: Ppi PT/OT: Pending Prognosis is guarded
[2020-05-26] MEDS: ASPIRIN 81 MG PO SCH (20:09)
[2020-05-26] MEDS: allopurinoL 100 MG TAB PO SCH (20:09)
[2020-05-26] MEDS: ATORVASTATIN 40 MG TAB PO SCH (20:09)
[2020-05-27] MEDS: LEVOTHYROXINE 75 MCG TAB PO SCH (05:17)
[2020-05-27] MEDS: ALBUTEROL HFA INHALER INHALATION SCH ×4 (07:10→19:02)
[2020-05-27] MEDS: SYMBICORT 160-4.5 MCG INHALER INHALATION SCH ×2 (07:10→19:03)
[2020-05-27] MEDS: TIOTROPIUM 2.5 MCG INHALER INHALATION SCH (07:11)
[2020-05-27] MEDS: methylPREDNISolone SOD SUCCI 125 MG/2 ML VIAL IV SCH ×3 (08:29→22:06)
[2020-05-27] MEDS: ASCORBIC ACID 500 MG TAB PO SCH ×2 (08:30→22:04)
[2020-05-27] MEDS: PANTOPRAZOLE 40 MG TABLET PO SCH (08:30)
[2020-05-27] MEDS: RIVAROXABAN 15 MG TAB PO SCH (08:30)
[2020-05-27] MEDS: ZINC SULFATE 220 MG CAP PO SCH (08:30)
[2020-05-27] MEDS: METOPROLOL TARTRATE 50 MG TAB PO SCH (08:30)
[2020-05-27] MEDS: DOXYCYCLINE 100 MG CAP PO SCH ×2 (08:30→22:03)
[2020-05-27] MEDS: CHOLECALCIFEROL 25 MCG (1000 IU) TABLET PO SCH (08:30)
--- NOTE | 2020-05-27 11:46 | XR ---
EXAMINATION TYPE: XR chest 1V DATE OF EXAM: 05/27/2020 COMPARISON: 05/23/2020 INDICATION: History of asthma, weakness TECHNIQUE: Single frontal view of the chest is obtained. FINDINGS: The heart size is normal. Pacemaker overlies left chest. The pulmonary vasculature is prominent. Perihilar infiltrate is present on the left. Air bronchograms are present. Correlate for pneumonia. IMPRESSION: 1. Left perihilar infiltrate. Correlate for pneumonia. Atypical pulmonary edema could be considered. Follow-up is recommended.
[2020-05-27] MEDS: MAGNESIUM OXIDE 400 MG TAB PO SCH (12:00)
--- NOTE | 2020-05-27 14:46 | P.PN ---
Subjective Patient is a 74-year-old female with a known history of paroxysmal atrial fibrillation on anticoagulation with Xarelto, COPD, hearing disorder/deafness, history of [place], history of permanent pacemaker placement, osteoarthritis and previous history of smoking presents to ER with complaints of nausea, vomiting and diarrhea. Patient states that she has been having symptoms for the past 1 week and felt very weak. She is not able to have good oral intake due to nausea persistently. Denied any complaints of fever or chills. No complaints of chest pain worsening shortness of breath. No headache or dizziness or lightheadedness. Patient felt very weak and fatigued. Chest x-ray showed there is some pulmonary interstitial fibrosis. There is inc reasing left lung pulmonary interstitial infiltrate compared to old exam and consistent with acute pneumonia. No overt heart failure. KUB x-ray showed nonacute abdomen. Patient was hypoxic with pulse ox 87% on room air. Afebrile. Laboratory showed BUN 37, creatinine 1.89 Elevated inflammatory markers Amylase 134 and lipase was 558 Urinalysis showed cloudy with trace ketones. Coronavirus PCR detected. WBC 4.6, hemoglobin 13.5 and platelets 195 05/25/2020 This is a pleasant 74 years old female who presents with significant dyspnea on admission the patient could not walk when she came into the hospital she was not able to eat for 7 days because of her dyspnea. She has history of COPD and f ollow-up with photogrammetric tech Dr. Leary. She is on 2 L of oxygen at home, she quit smoking in 2006 but she smoked for 40 years. She was hypoxic at 87-93 upon admission and currently she is 95 CBC is unremarkable however her creatinine on admission came back to normal today at 1.5. She still have chronic kidney disease stage III Her lactic dehydrogenase is elevated at 468 and C-reactive protein 4.2. And on exam she has significant wheezing. Currently she is on dexamethasone 6 mg daily, going to change that to Solu- Medrol. Continue with Xarelto. Blood pressure was on the low side yesterday 95/61, patient was on normal saline 75 mg/h which can be stopped today because her blood pressure improved to 127/60, also she is eating and drinking and creatinine improved. Also her diarrhea stopped. Patient continue on home dose of Xarelto for her history of A. fib 05/26/2020 Patient breathing is improving, her oxygen saturation is 92-95% on 2-3 to significant is a cannula however it drops to 87% on exertion, patient may qualify for home oxygen, given her COPD acute exacerbation and covid pneumo catalino, discussed the case with watch caseronline marketing manager team also evaluated the patient and recommended possible discharge tomorrow, if she keeps improving Her creatinine improved to normal today at 1.1, however she still have chronic kidney disease stage III with GFR of 49.4. She feels better after she started on Solu-Medrol 60 mg and doxycycline. Also she remains on vitamin C and zinc and Xarelto We will check repeat chest x-ray and inflammatory markers and d-dimer tomorrow 05/27/2020 Patient today stating that she is more short of breath and she's making green phlegm although she has less wheezing but not completely resolved. Her oxygen saturation is improving and currently she is saturating 97% on 3 L oxygen however she is tachypneic about 20 to respiratory minute. Her d-dimer is coming down to 1.0. Her C-reactive protein is went back to normal 0.8. Chest x-ray showing left perihilar infiltrate. Zosyn was added, we'll check Pro-calcitonin and lactate dehydrogenase and sputum culture. Order incentive spirometry Review of Systems Constitutional: Patient denies any fever or chills . Patient does have generalized weakness and malaise.. Abdomen: Patient does have intractable nausea vomiting and diarrhea. Denied any abdominal pain.. Cardiovascular: Patient denies any chest pain or short of breath no palpitations. Respiratory: No chest wall tenderness. No hemoptysis muscloskeletal: Patient denies any complaints of joint swelling or deformity. Skin: Negative Psychiatric: Negative Active Medications Generic Name Dose Route Start Last Admin Trade Name Freq PRN Reason Stop Dose Admin Acetaminophen 500 mg 05/23/20 23:32 05/23/20 23:39 Acetaminophen Tab 500 Mg Tab PO 500 mg TID PRN Administration Fever and/ or Pain Hydrocodone Bitart/Acetaminophen 1 each 05/23/20 23:33 05/25/20 02:46 Hydrocodone/Apap 5-325mg 1 Each Tab PO 1 each TID PRN Administration Pain Albuterol Sulfate 2 puff 05/24/20 08:00 05/27/20 11:23 Albuterol Hfa Inhaler INHALATION 2 puff RT-QID MILAN Administration Albuterol Sulfate 2 puff 05/23/20 20:20 Albuterol Hfa Inhaler INHALATION RT-QID PRN Shortness Of Breath Or Wheezing Allopurinol 100 mg 05/23/20 21:00 05/26/20 20:09 Allopurinol 100 Mg Tab PO 100 mg HS MILAN Administration Ascorbic Acid 250 mg 05/24/20 21:00 05/27/20 08:30 Ascorbic Acid 500 Mg Tab PO 250 mg BID MILAN Administration Aspirin 81 mg 05/23/20 21:00 05/26/20 20:09 Aspirin 81 Mg PO 81 mg HS MILAN Administration Atorvastatin Calcium 40 mg 05/23/20 21:00 05/26/20 20:09 Atorvastatin 40 Mg Tab PO 40 mg HS MILAN Administration Budesonide/Formoterol Fumarate 2 puff 05/24/20 08:00 05/27/20 07:10 Symbicort 160-4.5 Mcg Inhaler INHALATION 2 puff RT-BID MILAN Administration Cholecalciferol 25 mcg 05/24/20 09:00 05/27/20 08:30 Cholecalciferol 25 Mcg (1000 Iu) Tablet PO 25 mcg DAILY [facility] Administration Doxycycline Monohydrate 100 mg 05/25/20 13:00 05/27/20 08:30 Doxycycline 100 Mg Cap PO 100 mg BID MILAN Administration Guaifenesin/Dextromethorphan 10 ml 05/27/20 14:36 Guaifenesin-Dm 100-10mg/5ml 10 Ml Cup PO Q6H PRN Cough Piperacillin Sod/Tazobactam 100 mls @ 25 mls/hr 05/27/20 16:00 Sod 3.375 gm/ Sodium Chloride IVPB Q8HR [facility] Levothyroxine Sodium 75 mcg 05/24/20 06:00 05/27/20 05:17 Levothyroxine 75 Mcg Tab PO 75 mcg DAILY@0600 [facility] Administration Magnesium Oxide 400 mg 05/24/20 12:00 05/27/20 12:00 Magnesium Oxide 400 Mg Tab PO 400 mg DAILY@1200 [facility] Administration Methylprednisolone Sodium Succinate 60 mg 05/25/20 16:00 05/27/20 08:29 Methylprednisolone Sod Succi 125 Mg/2 Ml Vial IV 60 mg Q8HR [facility] Administration Metoprolol Tartrate 50 mg 05/24/20 09:00 05/27/20 08:30 Metoprolol Tartrate 50 Mg Tab PO 50 mg DAILY [facility] Administration Naloxone HCl 0.2 mg 05/23/20 16:34 Naloxone 0.4 Mg/Ml 1 Ml Vial IV Q2M PRN Opioid Reversal Ondansetron HCl 4 mg 05/23/20 16:34 Ondansetron 4 Mg/2 Ml Vial IVP Q8HR PRN Nausea And Vomiting Pantoprazole Sodium 40 mg 05/25/20 13:00 05/27/20 08:30 Pantoprazole 40 Mg Tablet PO 40 mg AC-BRKFST MILAN Administration Rivaroxaban 15 mg 05/26/20 07:30 05/27/20 08:30 Rivaroxaban 15 Mg Tab PO 15 mg AC-BRKFST [facility] Administration Tiotropium [place] 2 puff 05/23/20 21:00 05/27/20 07:11 Tiotropium 2.5 Mcg Inhaler INHALATION 2 puff DAILY [facility] Administration Zinc Sulfate 220 mg 05/24/20 17:00 05/27/20 08:30 Zinc Sulfate 220 Mg Cap PO 220 mg DAILY [facility] Administration Objective - Vital Signs Vital signs: Vital Signs Temp 97.7 F 05/27/20 14:22 Pulse 64 05/27/20 14:22 Resp 20 05/27/20 14:22 BP 122/68 05/27/20 14:22 Pulse Ox 97 05/27/20 14:22 Intake & Output 05/26/20 05/27/20 05/27/20 18:59 06:59 18:59 Intake Total 240 480 740 Balance 240 480 740 Intake: Oral 240 480 740 Other: Voiding Method Bedside Commode Bedside Commode Bedside Commode # Voids 1 1 1 - Exam -GENERAL: The patient is alert and oriented x3, in mild acute distress. Well developed, well nourished. HEENT: Pupils are round and equally reacting to light. EOMI. No scleral icterus. No conjunctival pallor. Normocephalic, atraumatic. No pharyngeal erythema. No thyromegaly. CARDIOVASCULAR: S1 and S2 present. No murmurs, rubs, or gallops. -PULMONARY: Chest is clear to auscultation, bilateral expiratory wheezing. He is tachypneic 20-22. ABDOMEN: Soft, nontender, nondistended, normoactive bowel sounds. No palpable organomegaly. MUSCULOSKELETAL: No joint swelling or deformity. EXTREMITIES: No cyanosis, clubbing, or pedal edema. NEUROLOGICAL: Gross neurological examination did not reveal any focal deficits. SKIN: No rashes. no petechiae. - Labs CBC & Chem 7: 05/24/20 12:15 05/26/20 04:09 Labs: Abnormal Lab Results - Last 24 Hours (Table) 05/27/20 Range/Units 04:09 D-Dimer 1.01 H (<0.60) mg/L FEU Assessment and Plan Assessment: Acute COVID-19 pneumonia Acute COPD exacerbation Left perihilar pneumonia Acute hypoxic respiratory failure Intractable nausea and vomiting and diarrhea due to viral gastroenteritis. Elevated inflammatory markers secondary to COVID-19 Acute kidney injury likely prerenal. Improving Chronic kidney disease stage II to III Coronary artery disease with history of stent placement History of cardiac ablation and permanent pacemaker placement Paroxysmal atrial fibrillation on anticoagulation with Xarelto Hearing disorder/deafness likely history of [place] Hiatal hernia Macular degeneration Degenerative disc disease Previous history of smoking Plan: This is a pleasant 74 years old female who presents with COPD and Covid pneumonia. Continue with steroids and change it to Solu-Medrol. Continue with doxycycline. Add Zosyn and follow-up sputum culture and pro-calcitonin. Pulmonary team on the case Labs and medication were reviewed.. Continue same treatment. Continue with symptomatic treatment. Resume home medication. Monitor lytes and vitals. DVT and GI prophylaxis. Further recommendations depends on the clinical course of the patient DVT prophylaxis: Xarelto GI Prophylaxis: Ppi PT/OT: Pending Prognosis is guarded
[2020-05-27] MEDS: PIPERACILLIN-TAZOBACTAM 3.375 GM in SODIUM CHLORIDE 0.9% 100 ML IVPB SCH (15:50)
--- NOTE | 2020-05-27 16:04 | P.PN ---
Subjective Progress Note Date: 05/27/20 Principal diagnosis: Acute covid 19 pneumonia Acute on chronic hypoxic respiratory failure End-stage severe COPD Chronic congestive heart failure combination of systolic and diastolic Chronic atrial fibrillation on direct oral anticoagulants Morbid obesity and likely obstructive sleep apnea patient however refused polysomnogram 05/27/2020, patient seen eval examined during the rounds labs reviewed medications reviewed for the last 24 hours patient has been more short of breath coughing any sputum, patient remains on Zosyn along with the doxycycline, has been on direct anticoagulant as well, along with supplemental oxygen breathing treatment, 05/26/2020, patient seen eval examined during the rounds labs reviewed medications reviewed care plan discussed respite status slightly better, patient would like to go home tomorrow if remains stable, This is a 74-year-old morbidly obese female with history of severe COPD oxygen dependent, patient has been having increased cough congestion or shortness of breath for last 2-3 week, was found to be positive for covid, she also found to be positive few days ago came into the hospital for increased symptoms now she is out of REMdesivir window currently she is being treated with Decadron bronchodilators and direct oral anticoagulants Objective - Vital Signs Vital signs: Vital Signs Temp 97.7 F 05/27/20 14:22 Pulse 64 05/27/20 14:22 Resp 20 05/27/20 14:22 BP 122/68 05/27/20 14:22 Pulse Ox 97 05/27/20 14:22 Intake & Output 05/26/20 05/27/20 05/27/20 18:59 06:59 18:59 Intake Total 240 480 740 Balance 240 480 740 Intake: Oral 240 480 740 Other: Voiding Method Bedside Commode Bedside Commode Bedside Commode # Voids 1 1 1 - Exam - Constitutional General appearance: disheveled, morbidly obese - EENT Eyes: PERRLA Ears: bilateral: normal - Neck Neck: normal ROM Carotids: bilateral: upstroke normal Thyroid: bilateral: normal size - Respiratory Respiratory: bilateral: diminished - Cardiovascular Rhythm: regular Heart sounds: normal: S1, S2 - Gastrointestinal General gastrointestinal: normal bowel sounds - Integumentary Integumentary: normal turgor - Neurologic Neurologic: CNII-XII intact - Musculoskeletal Musculoskeletal: gait normal, generalized weakness, strength equal bilaterally - Psychiatric Psychiatric: A&O x's 3, appropriate affect, intact judgment & insight - Labs CBC & Chem 7: 05/24/20 12:15 05/26/20 04:09 Labs: Abnormal Lab Results - Last 24 Hours (Table) 05/27/20 Range/Units 04:09 D-Dimer 1.01 H (<0.60) mg/L FEU Assessment and Plan Assessment: Acute covid 19 pneumonia Acute on chronic hypoxic respiratory failure Left perihilar pneumonia Acute COPD exacerbation Tracheobronchitis End-stage severe COPD Chronic congestive heart failure combination of systolic and diastolic Chronic atrial fibrillation on direct oral anticoagulants Morbid obesity and likely obstructive sleep apnea patient however refused polysomnogram Plan: Antibiotics broad-spectrum Continue bronchodilator Supplemental oxygen Decadron Deep breathing exercises and incentive spirometry Patient is out of window of IV REMdesivir therapy Time with Patient: Greater than 30
[2020-05-27] MEDS: ACETAMINOPHEN TAB 500 MG TAB PO PRN (16:28)
[2020-05-27] MEDS: ASPIRIN 81 MG PO SCH (22:04)
[2020-05-27] MEDS: ATORVASTATIN 40 MG TAB PO SCH (22:04)
[2020-05-27] MEDS: allopurinoL 100 MG TAB PO SCH (22:04)
[2020-05-28] MEDS: PIPERACILLIN-TAZOBACTAM 3.375 GM in SODIUM CHLORIDE 0.9% 100 ML IVPB SCH ×4 (00:35→23:16)
[2020-05-28] MEDS: guaiFENesin-DM 100-10MG/5ML 10 ML CUP PO PRN ×2 (00:35→23:42)
[2020-05-28] MEDS: LEVOTHYROXINE 75 MCG TAB PO SCH (05:28)
[2020-05-28] MEDS: PANTOPRAZOLE 40 MG TABLET PO SCH (07:34)
[2020-05-28] MEDS: methylPREDNISolone SOD SUCCI 125 MG/2 ML VIAL IV SCH ×3 (07:35→23:16)
[2020-05-28] MEDS: DOXYCYCLINE 100 MG CAP PO SCH ×2 (08:13→20:20)
[2020-05-28] MEDS: METOPROLOL TARTRATE 50 MG TAB PO SCH (08:13)
[2020-05-28] MEDS: RIVAROXABAN 15 MG TAB PO SCH (08:13)
[2020-05-28] MEDS: ASCORBIC ACID 500 MG TAB PO SCH ×2 (08:13→20:21)
[2020-05-28] MEDS: ZINC SULFATE 220 MG CAP PO SCH (08:14)
[2020-05-28] MEDS: CHOLECALCIFEROL 25 MCG (1000 IU) TABLET PO SCH (08:14)
[2020-05-28] MEDS: TIOTROPIUM 2.5 MCG INHALER INHALATION SCH (08:36)
[2020-05-28] MEDS: SYMBICORT 160-4.5 MCG INHALER INHALATION SCH ×2 (08:36→20:35)
[2020-05-28] MEDS: ALBUTEROL HFA INHALER INHALATION SCH ×4 (08:36→20:35)
[2020-05-28] MEDS ORDERED: FUROSEMIDE 10 MG/ML 2 ML VIAL IV ONE (11:18)
--- NOTE | 2020-05-28 11:36 | P.PN ---
Subjective Patient is a 74-year-old female with a known history of paroxysmal atrial fibrillation on anticoagulation with Xarelto, COPD, hearing disorder/deafness, history of [place], history of permanent pacemaker placement, osteoarthritis and previous history of smoking presents to ER with complaints of nausea, vomiting and diarrhea. Patient states that she has been having symptoms for the past 1 week and felt very weak. She is not able to have good oral intake due to nausea persistently. Denied any complaints of fever or chills. No complaints of chest pain worsening shortness of breath. No headache or dizziness or lightheadedness. Patient felt very weak and fatigued. Chest x-ray showed there is some pulmonary interstitial fibrosis. There is inc reasing left lung pulmonary interstitial infiltrate compared to old exam and consistent with acute pneumonia. No overt heart failure. KUB x-ray showed nonacute abdomen. Patient was hypoxic with pulse ox 87% on room air. Afebrile. Laboratory showed BUN 37, creatinine 1.89 Elevated inflammatory markers Amylase 134 and lipase was 558 Urinalysis showed cloudy with trace ketones. Coronavirus PCR detected. WBC 4.6, hemoglobin 13.5 and platelets 195 05/25/2020 This is a pleasant 74 years old female who presents with significant dyspnea on admission the patient could not walk when she came into the hospital she was not able to eat for 7 days because of her dyspnea. 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 She is on 2 L of oxygen at home, she quit smoking in 2006 but she smoked for 40 years. She was hypoxic at 87-93 upon admission and currently she is 95 CBC is unremarkable however her creatinine on admission came back to normal today at 1.5. She still have chronic kidney disease stage III Her lactic dehydrogenase is elevated at 468 and C-reactive protein 4.2. And on exam she has significant wheezing. Currently she is on dexamethasone 6 mg daily, going to change that to Solu- Medrol. Continue with Xarelto. Blood pressure was on the low side yesterday 95/61, patient was on normal saline 75 mg/h which can be stopped today because her blood pressure improved to 127/60, also she is eating and drinking and creatinine improved. Also her diarrhea stopped. Patient continue on home dose of Xarelto for her history of A. fib 05/26/2020 Patient breathing is improving, her oxygen saturation is 92-95% on 2-3 to significant is a cannula however it drops to 87% on exertion, patient may qualify for home oxygen, given her COPD acute exacerbation and covid pneumo nitis, discussed the case with family independence case managerdisability manager team also evaluated the patient and recommended possible discharge tomorrow, if she keeps improving Her creatinine improved to normal today at 1.1, however she still have chronic kidney disease stage III with GFR of 49.4. She feels better after she started on Solu-Medrol 60 mg and doxycycline. Also she remains on vitamin C and zinc and Xarelto We will check repeat chest x-ray and inflammatory markers and d-dimer tomorrow 05/27/2020 Patient today stating that she is more short of breath and she's making green phlegm although she has less wheezing but not completely resolved. Her oxygen saturation is improving and currently she is saturating 97% on 3 L oxygen however she is tachypneic about 20 to respiratory minute. Her d-dimer is coming down to 1.0. Her C-reactive protein is went back to normal 0.8. Chest x-ray showing left perihilar infiltrate. Zosyn was added, we'll check Pro-calcitonin and lactate dehydrogenase and sputum culture. Order incentive spirometry 05/28/2020 Patient admitted originally for Covid pneumonia and hypoxia, also she had gastroenteritis. Her course is complicated by COPD exacerbation and she was placed on Solu-Medrol 60 mg every 6 hours which helped her breathing and saturation however yesterday she developed more dyspnea, repeat chest x-ray showed perihilar infiltrates on Zosyn was started. Today she feels a little better but she was asking about her Lasix to be restarted, she is on 40 mg Lasix daily, also will give her Lasix IV 20 mg 1. She is tachypneic 20-22, she saturating 95% on 3 L oxygen via nasal cannula. Creatinine is back to normal 1.1 We will order labs and to be chest x-ray tomorrow She continue on vitamin C, zinc, Xarelto for her history of A. fib, as well as doxycycline. Pulmonary team on the case Review of Systems Constitutional: Patient denies any fever or chills . Patient does have generalized weakness and malaise.. Abdomen: Patient does have intractable nausea vomiting and diarrhea. Denied any abdominal pain.. Cardiovascular: Patient denies any chest pain or short of breath no palpitations. Respiratory: No chest wall tenderness. No hemoptysis muscloskeletal: Patient denies any complaints of joint swelling or deformity. Skin: Negative Psychiatric: Negative Active Medications Generic Name Dose Route Start Last Admin Trade Name Freq PRN Reason Stop Dose Admin Acetaminophen 500 mg 05/23/20 23:32 05/27/20 16:28 Acetaminophen Tab 500 Mg Tab PO 500 mg TID PRN Administration Fever and/ or Pain Hydrocodone Bitart/Acetaminophen 1 each 05/23/20 23:33 05/25/20 02:46 Hydrocodone/Apap 5-325mg 1 Each Tab PO 1 each TID PRN Administration Pain Albuterol Sulfate 2 puff 05/24/20 08:00 05/28/20 08:36 Albuterol Hfa Inhaler INHALATION 2 puff RT-QID MILAN Administration Albuterol Sulfate 2 puff 05/23/20 20:20 Albuterol Hfa Inhaler INHALATION RT-QID PRN Shortness Of Breath Or Wheezing Allopurinol 100 mg 05/23/20 21:00 05/27/20 22:04 Allopurinol 100 Mg Tab PO 100 mg HS MILAN Administration Ascorbic Acid 250 mg 05/24/20 21:00 05/28/20 08:13 Ascorbic Acid 500 Mg Tab PO 250 mg BID MILAN Administration Aspirin 81 mg 05/23/20 21:00 05/27/20 22:04 Aspirin 81 Mg PO 81 mg HS MILAN Administration Atorvastatin Calcium 40 mg 05/23/20 21:00 05/27/20 22:04 Atorvastatin 40 Mg Tab PO 40 mg HS MILAN Administration Budesonide/Formoterol Fumarate 2 puff 05/24/20 08:00 05/28/20 08:36 Symbicort 160-4.5 Mcg Inhaler INHALATION 2 puff RT-BID MILAN Administration Cholecalciferol 25 mcg 05/24/20 09:00 05/28/20 08:14 Cholecalciferol 25 Mcg (1000 Iu) Tablet PO 25 mcg DAILY [facility] Administration Doxycycline Monohydrate 100 mg 05/25/20 13:00 05/28/20 08:13 Doxycycline 100 Mg Cap PO 100 mg BID MILAN Administration Furosemide 40 mg 05/28/20 11:30 Furosemide 40 Mg Tab PO DAILY [facility] Guaifenesin/Dextromethorphan 10 ml 05/27/20 14:36 05/28/20 00:35 Guaifenesin-Dm 100-10mg/5ml 10 Ml Cup PO 10 ml Q6H PRN Administration Cough Piperacillin Sod/Tazobactam 100 mls @ 25 mls/hr 05/27/20 16:00 05/28/20 07:37 Sod 3.375 gm/ Sodium Chloride IVPB 25 mls/hr Q8HR [facility] Administration Levothyroxine Sodium 75 mcg 05/24/20 06:00 05/28/20 05:28 Levothyroxine 75 Mcg Tab PO 75 mcg DAILY@0600 [facility] Administration Magnesium Oxide 400 mg 05/24/20 12:00 05/27/20 12:00 Magnesium Oxide 400 Mg Tab PO 400 mg DAILY@1200 [facility] Administration Methylprednisolone Sodium Succinate 60 mg 05/25/20 16:00 05/28/20 07:35 Methylprednisolone Sod Succi 125 Mg/2 Ml Vial IV 60 mg Q8HR [facility] Administration Metoprolol Tartrate 50 mg 05/24/20 09:00 05/28/20 08:13 Metoprolol Tartrate 50 Mg Tab PO 50 mg DAILY [facility] Administration Naloxone HCl 0.2 mg 05/23/20 16:34 Naloxone 0.4 Mg/Ml 1 Ml Vial IV Q2M PRN Opioid Reversal Ondansetron HCl 4 mg 05/23/20 16:34 Ondansetron 4 Mg/2 Ml Vial IVP Q8HR PRN Nausea And Vomiting Pantoprazole Sodium 40 mg 05/25/20 13:00 05/28/20 07:34 Pantoprazole 40 Mg Tablet PO 40 mg AC-BRKFST [facility] Administration Rivaroxaban 15 mg 05/26/20 07:30 05/28/20 08:13 Rivaroxaban 15 Mg Tab PO 15 mg AC-BRKFST [facility] Administration Tiotropium [place] 2 puff 05/23/20 21:00 05/28/20 08:36 Tiotropium 2.5 Mcg Inhaler INHALATION 2 puff DAILY [facility] Administration Zinc Sulfate 220 mg 05/24/20 17:00 05/28/20 08:14 Zinc Sulfate 220 Mg Cap PO 220 mg DAILY [facility] Administration Objective - Vital Signs Vital signs: Vital Signs Temp 97.8 F 05/28/20 08:00 Pulse 74 05/28/20 08:00 Resp 22 05/28/20 08:00 BP 142/78 05/28/20 08:00 Pulse Ox 92 L 05/28/20 08:00 Intake & Output 05/27/20 05/28/20 05/28/20 18:59 06:59 18:59 Intake Total 740 480 200 Output Total 1 Balance 740 480 199 Intake: Oral 740 480 200 Output: Stool 1 Other: Voiding Method Bedside Commode Bedside Commode Bedside Commode # Voids 2 1 1 - Exam -GENERAL: The patient is alert and oriented x3, in mild acute distress. Well developed, well nourished. HEENT: Pupils are round and equally reacting to light. EOMI. No scleral icterus. No conjunctival pallor. Normocephalic, atraumatic. No pharyngeal erythema. No thyromegaly. CARDIOVASCULAR: S1 and S2 present. No murmurs, rubs, or gallops. -PULMONARY: Chest is clear to auscultation, bilateral expiratory wheezing. He is tachypneic 20-22. ABDOMEN: Soft, nontender, nondistended, normoactive bowel sounds. No palpable organomegaly. MUSCULOSKELETAL: No joint swelling or deformity. EXTREMITIES: No cyanosis, clubbing, or pedal edema. NEUROLOGICAL: Gross neurological examination did not reveal any focal deficits. SKIN: No rashes. no petechiae. - Labs CBC & Chem 7: 05/24/20 12:15 05/26/20 04:09 Labs: Microbiology - Last 24 Hours (Table) 05/27/20 16:00 Gram Stain - Preliminary Sputum Sputum Culture - Preliminary Assessment and Plan Assessment: Acute COVID-19 pneumonia Acute COPD exacerbation Left perihilar pneumonia Acute hypoxic respiratory failure Intractable nausea and vomiting and diarrhea due to viral gastroenteritis. Improved Elevated inflammatory markers secondary to COVID-19 Acute kidney injury likely prerenal. Improved Chronic kidney disease stage II to III Coronary artery disease with history of stent placement History of cardiac ablation and permanent pacemaker placement Paroxysmal atrial fibrillation on anticoagulation with Xarelto Hearing disorder/deafness likely history of [place] Hiatal hernia Macular degeneration Degenerative disc disease Previous history of smoking Plan: This is a pleasant 74 years old female who presents with COPD and Covid pneumonia. Continue with steroids and change it to Solu-Medrol. Continue with doxycycline and Zosyn and follow-up sputum culture and pro-calcitonin. Pulmonary team on the case Labs and medication were reviewed.. Continue same treatment. Continue with symptomatic treatment. Resume home medication. Monitor lytes and vitals. DVT and GI prophylaxis. Further recommendations depends on the clinical course of the patient DVT prophylaxis: Xarelto GI Prophylaxis: Ppi PT/OT: Home health care Prognosis is guarded
[2020-05-28] MEDS: MAGNESIUM OXIDE 400 MG TAB PO SCH (12:40)
[2020-05-28 13:14] VITALS: BMI 41.0
--- NOTE | 2020-05-28 14:56 | P.PN ---
Subjective Progress Note Date: 05/28/20 Principal diagnosis: Acute covid 19 pneumonia Acute on chronic hypoxic respiratory failure End-stage severe COPD Chronic congestive heart failure combination of systolic and diastolic Chronic atrial fibrillation on direct oral anticoagulants Morbid obesity and likely obstructive sleep apnea patient however refused polysomnogram 05/28/2020, patient seen eval examined during the rounds labs reviewed medications reviewed, care plan discussed the still have ongoing shortness of breath wheezing cough congestion patient remains on broad-spectrum antibiotics 05/27/2020, patient seen eval examined during the rounds labs reviewed medications reviewed for the last 24 hours patient has been more short of breath coughing any sputum, patient remains on Zosyn along with the doxycycline, has been on direct anticoagulant as well, along with supplemental oxygen breathing treatment, 05/26/2020, patient seen eval examined during the rounds labs reviewed medications reviewed care plan discussed respite status slightly better, patient would like to go home tomorrow if remains stable, This is a 74-year-old morbidly obese female with history of severe COPD oxygen dependent, patient has been having increased cough congestion or shortness of breath for last 2-3 week, was found to be positive for covid, she also found to be positive few days ago came into the hospital for increased symptoms now she is out of REMdesivir window currently she is being treated with Decadron bronchodilators and direct oral anticoagulants Objective - Vital Signs Vital signs: Vital Signs Temp 97.9 F 05/28/20 14:32 Pulse 65 05/28/20 14:32 Resp 20 05/28/20 14:32 BP 119/69 05/28/20 14:32 Pulse Ox 95 05/28/20 14:32 Intake & Output 05/27/20 05/28/20 05/28/20 18:59 06:59 18:59 Intake Total 740 480 500 Output Total 1 Balance 740 480 499 Weight 95.254 kg Intake: Oral 740 480 500 Output: Stool 1 Other: Voiding Method Bedside Commode Bedside Commode Bedside Commode # Voids 2 1 1 - Exam - Constitutional General appearance: disheveled, morbidly obese - EENT Eyes: PERRLA Ears: bilateral: normal - Neck Neck: normal ROM Carotids: bilateral: upstroke normal Thyroid: bilateral: normal size - Respiratory Respiratory: bilateral: diminished - Cardiovascular Rhythm: regular Heart sounds: normal: S1, S2 - Gastrointestinal General gastrointestinal: normal bowel sounds - Integumentary Integumentary: normal turgor - Neurologic Neurologic: CNII-XII intact - Musculoskeletal Musculoskeletal: gait normal, generalized weakness, strength equal bilaterally - Psychiatric Psychiatric: A&O x's 3, appropriate affect, intact judgment & insight - Labs CBC & Chem 7: 05/24/20 12:15 05/26/20 04:09 Labs: Microbiology - Last 24 Hours (Table) 05/27/20 16:00 Gram Stain - Preliminary Sputum Sputum Culture - Preliminary Assessment and Plan Assessment: Acute covid 19 pneumonia Acute on chronic hypoxic respiratory failure Left perihilar pneumonia Acute COPD exacerbation Tracheobronchitis End-stage severe COPD Chronic congestive heart failure combination of systolic and diastolic Chronic atrial fibrillation on direct oral anticoagulants Morbid obesity and likely obstructive sleep apnea patient however refused polysomnogram Plan: Antibiotics broad-spectrum Continue bronchodilator Supplemental oxygen Decadron Deep breathing exercises and incentive spirometry Patient is out of window of IV REMdesivir therapy Time with Patient: Greater than 30
[2020-05-28] MEDS: FUROSEMIDE 40 MG TAB PO SCH (16:08)
[2020-05-28] MEDS: ATORVASTATIN 40 MG TAB PO SCH (20:20)
[2020-05-28] MEDS: ASPIRIN 81 MG PO SCH (20:20)
[2020-05-28] MEDS: allopurinoL 100 MG TAB PO SCH (20:21)
[2020-05-29] MEDS: LEVOTHYROXINE 75 MCG TAB PO SCH (05:16)
[2020-05-29] MEDS: SYMBICORT 160-4.5 MCG INHALER INHALATION SCH (07:16)
[2020-05-29] MEDS: TIOTROPIUM 2.5 MCG INHALER INHALATION SCH (07:16)
[2020-05-29] MEDS: ALBUTEROL HFA INHALER INHALATION SCH ×3 (07:16→15:10)
[2020-05-29] MEDS: RIVAROXABAN 15 MG TAB PO SCH (07:33)
[2020-05-29] MEDS: PANTOPRAZOLE 40 MG TABLET PO SCH (07:33)
[2020-05-29] MEDS: methylPREDNISolone SOD SUCCI 125 MG/2 ML VIAL IV SCH ×2 (07:34→16:09)
[2020-05-29] MEDS: PIPERACILLIN-TAZOBACTAM 3.375 GM in SODIUM CHLORIDE 0.9% 100 ML IVPB SCH ×2 (07:35→16:10)
[2020-05-29] MEDS: ASCORBIC ACID 500 MG TAB PO SCH (08:29)
[2020-05-29] MEDS: METOPROLOL TARTRATE 50 MG TAB PO SCH (08:29)
[2020-05-29] MEDS: CHOLECALCIFEROL 25 MCG (1000 IU) TABLET PO SCH (08:30)
[2020-05-29] MEDS: DOXYCYCLINE 100 MG CAP PO SCH (08:30)
[2020-05-29] MEDS: ZINC SULFATE 220 MG CAP PO SCH (08:30)
[2020-05-29] MEDS: FUROSEMIDE 40 MG TAB PO SCH (08:30)
--- NOTE | 2020-05-29 09:25 | P.PN ---
Subjective Progress Note Date: 05/29/20 Principal diagnosis: Acute covid 19 pneumonia Acute on chronic hypoxic respiratory failure End-stage severe COPD Chronic congestive heart failure combination of systolic and diastolic Chronic atrial fibrillation on direct oral anticoagulants Morbid obesity and likely obstructive sleep apnea patient however refused polysomnogram 05/29/2020, patient seen eval examined during the rounds labs reviewed medications reviewed, patient has been having shortness of breath also feels that swelling of the patient did receive Lasix with that good adequate urine output is present, sputum remains yellow to green, shortness of breath activity and exertion present, patient remains on IV steroids breathing treatments broad- spectrum antibiotics, 05/28/2020, patient seen eval examined during the rounds labs reviewed medications reviewed, care plan discussed the still have ongoing shortness of breath wheezing cough congestion patient remains on broad-spectrum antibiotics 05/27/2020, patient seen eval examined during the rounds labs reviewed medications reviewed for the last 24 hours patient has been more short of breath coughing any sputum, patient remains on Zosyn along with the doxycycline, has been on direct anticoagulant as well, along with supplemental oxygen breathing treatment, 05/26/2020, patient seen eval examined during the rounds labs reviewed medications reviewed care plan discussed respite status slightly better, patient would like to go home tomorrow if remains stable, This is a 74-year-old morbidly obese female with history of severe COPD oxygen dependent, patient has been having increased cough congestion or shortness of breath for last 2-3 week, was found to be positive for covid, she also found to be positive few days ago came into the hospital for increased symptoms now she is out of REMdesivir window currently she is being treated with Decadron bronchodilators and direct oral anticoagulants Objective - Vital Signs Vital signs: Vital Signs Temp 97.8 F 05/29/20 02:00 Pulse 94 05/29/20 02:00 Resp 20 05/29/20 02:00 BP 143/73 05/29/20 02:00 Pulse Ox 94 L 05/29/20 02:00 Intake & Output 05/28/20 05/29/20 05/29/20 18:59 06:59 18:59 Intake Total 500 Output Total 1 Balance 499 Weight 95.254 kg Intake: Oral 500 Output: Stool 1 Other: Voiding Method Bedside Commode Bedside Commode # Voids 1 3 - Exam - Constitutional General appearance: disheveled, morbidly obese - EENT Eyes: PERRLA Ears: bilateral: normal - Neck Neck: normal ROM Carotids: bilateral: upstroke normal Thyroid: bilateral: normal size - Respiratory Respiratory: bilateral: diminished - Cardiovascular Rhythm: regular Heart sounds: normal: S1, S2 - Gastrointestinal General gastrointestinal: normal bowel sounds - Integumentary Integumentary: normal turgor - Neurologic Neurologic: CNII-XII intact - Musculoskeletal Musculoskeletal: gait normal, generalized weakness, strength equal bilaterally - Psychiatric Psychiatric: A&O x's 3, appropriate affect, intact judgment & insight - Labs CBC & Chem 7: 05/24/20 12:15 05/26/20 04:09 Labs: Microbiology - Last 24 Hours (Table) 05/27/20 16:00 Gram Stain - Preliminary Sputum Sputum Culture - Preliminary Assessment and Plan Assessment: Acute covid 19 pneumonia Acute on chronic hypoxic respiratory failure Left perihilar pneumonia Acute COPD exacerbation Tracheobronchitis End-stage severe COPD Chronic congestive heart failure combination of systolic and diastolic Chronic atrial fibrillation on direct oral anticoagulants Morbid obesity and likely obstructive sleep apnea patient however refused polysomnogram Plan: Antibiotics broad-spectrum Continue bronchodilator Supplemental oxygen Decadron Deep breathing exercises and incentive spirometry Patient is out of window of IV REMdesivir therapy Time with Patient: Greater than 30
[2020-05-29 11:40] LABS: African American GFR (CKD) 45 (>60 ml/min/1.73 sqM); Anion Gap 12 mmol/L; Blood Urea Nitrogen 49 mg/dL (7-17); Calcium 8.9 mg/dL (8.4-10.2); Carbon Dioxide 18 mmol/L (22-30); Chloride 108 mmol/L (98-107); Glucose 132 mg/dL (74-99); Magnesium 1.8 mg/dL (1.6-2.3); Non-African American GFR(CKD) 39 (>60 ml/min/1.73 sqM); Sodium 138 mmol/L (137-145)
--- NOTE | 2020-05-29 11:51 | XR ---
EXAMINATION TYPE: XR chest 1V DATE OF EXAM: 05/29/2020 CLINICAL HISTORY: Difficulty breathing and covid positive progress study. TECHNIQUE: Single AP portable upright view of the chest is obtained. COMPARISON: Chest x-ray from [address] chest 09/04/2019. FINDINGS: High rising right humeral head suggests chronic rotator cuff tear. Persistent cardiomegaly with multi lead pacemaker. Chronic emphysematous changes with increased central lung markings bilate rally. No pleural effusion or pneumothorax seen. IMPRESSION: Correlate for CHF exacerbation as there is cardiomegaly with mild interstitial edema and central vascular congestion felt present. Background chronic emphysematous change noted.
[2020-05-29] MEDS: MAGNESIUM OXIDE 400 MG TAB PO SCH (12:09)
[2020-05-29 16:26] VITALS: BP 136/65; PULSE 85; RESP 16; TEMP 97.2
[2020-05-29 19:40] LABS: LD Isoenzymes 1 23 % (19-38); LD Isoenzymes 2 36 % (30-43); LD Isoenzymes 3 20 % (16-26); LD Isoenzymes 4 9 % (3-12); LD Isoenzymes 5 12 % (3-14); Lactacte Dehydrogenase(LD) ISO 349 U/L (120-250)
== END 2020-05-29 16:00 | disposition home or self-care (01) | DRG 177 ==
LOC: EC 14:42 → 6NMEDSUR 16:34 → OBSVTOIN 05-25 12:23
PROVIDERS: ADMIT Internal Medicine; ATTEND Internal Medicine
DX: U07.1 COVID-19 (principal); J96.21 Acute and chronic respiratory failure with hypoxia; J12.82 Pneumonia due to coronavirus disease 2019; K85.90 Acute pancreatitis without necrosis or infection, unspecified; J44.1 Chronic obstructive pulmonary disease with (acute) exacerbation; Z68.41 Body mass index [BMI] 40.0-44.9, adult; E87.1 Hypo-osmolality and hyponatremia; E87.2 Acidosis; I48.20 Chronic atrial fibrillation, unspecified; I50.42 Chronic combined systolic (congestive) and diastolic (congestive) heart failure; J44.0 Chronic obstructive pulmonary disease with (acute) lower respiratory infection; N17.9 Acute kidney failure, unspecified; E66.01 Morbid (severe) obesity due to excess calories; E86.0 Dehydration; E86.1 Hypovolemia; G47.33 Obstructive sleep apnea (adult) (pediatric); H35.30 Unspecified macular degeneration; H91.90 Unspecified hearing loss, unspecified ear; I25.10 Atherosclerotic heart disease of native coronary artery without angina pectoris; I25.2 Old myocardial infarction; I48.0 Paroxysmal atrial fibrillation; J84.10 Pulmonary fibrosis, unspecified; K44.9 Diaphragmatic hernia without obstruction or gangrene; M81.0 Age-related osteoporosis without current pathological fracture; N18.30 Chronic kidney disease, stage 3 unspecified; Z79.01 Long term (current) use of anticoagulants; Z79.82 Long term (current) use of aspirin; Z79.890 Hormone replacement therapy; E07.9 Disorder of thyroid, unspecified; Z79.899 Other long term (current) drug therapy; Z80.3 Family history of malignant neoplasm of breast; Z82.49 Family history of ischemic heart disease and other diseases of the circulatory system; Z85.828 Personal history of other malignant neoplasm of skin; Z87.891 Personal history of nicotine dependence; Z90.710 Acquired absence of both cervix and uterus; Z95.0 Presence of cardiac pacemaker; Z95.5 Presence of coronary angioplasty implant and graft; Z99.81 Dependence on supplemental oxygen; Z98.42 Cataract extraction status, left eye; Z98.41 Cataract extraction status, right eye; Z90.89 Acquired absence of other organs; Z87.440 Personal history of urinary (tract) infections; K52.9 Noninfective gastroenteritis and colitis, unspecified; Z90.49 Acquired absence of other specified parts of digestive tract; Z87.01 Personal history of pneumonia (recurrent); Z88.5 Allergy status to narcotic agent; Z83.6 Family history of other diseases of the respiratory system; Z82.3 Family history of stroke; Z83.2 Family history of diseases of the blood and blood-forming organs and certain disorders involving the immune mechanism; M10.9 Gout, unspecified; M19.90 Unspecified osteoarthritis, unspecified site; Z79.51 Long term (current) use of inhaled steroids
CPT/HCPCS: 36415; 71045; 71046; 74018; 80048; 80053; 81001; 82150; 82728; 83615; 83625; 83690; 83735; 84145; 85025; 85379; 86140; 87070; 87077; 87186; 87205; 87635; 94640; 96361; 96374; 99285

== ENCOUNTER → 2020-09-04 | Outpatient (CLI) | payer MEDICARE ==
--- NOTE | 2020-09-04 14:32 | CT ---
EXAMINATION TYPE: CT chest wo con DATE OF EXAM: 09/04/2020 COMPARISON: 09/04/2019 HISTORY: Pulmonary disease; Intersitial pulmonary disease CT DLP: 228 mGycm, Automated exposure control for dose reduction was used. CONTRAST: None TECHNIQUE: Axial images were obtained at 1 mm thick sections at 10 mm intervals. This will limit po rtions of the examination which may not be visualized within the [id number]. Images were obtained in the prone and supine views. FINDINGS: Portion of the thyroid visualized is normal. No suspicious lung nodules or focal infiltrat es are present. There is a 1.9 cm pretracheal lymph node. Additional workup with standard CT chest is recommended. T he ascending aorta diameter at the level of the main pulmonary artery is 3.4 cm. The main pulmonary artery diameter at the bifurcation is 3.1 cm. Moderate to marked coronary artery calcification is pre sent. Heart size may be slightly prominent. Paraseptal emphysematous type changes are present. Limited CT sections are obtained through the upper abdomen. Abdomen is essentially unremarkable. IMPRESSIONS: 1. There is septal emphysema. 2. Large 1.9 cm lymph node in the pretracheal space slightly larger than the comparison is [address] chest recommended for reevaluation of the complete chest.
== END | disposition home or self-care (01) ==
LOC: RADCTMAIN 13:10
PROVIDERS: ATTEND Internal Medicine
DX: J43.9 Emphysema, unspecified (principal); J98.4 Other disorders of lung
CPT/HCPCS: 71250

== ENCOUNTER → 2020-12-22 | Outpatient (CLI) | payer MEDICARE ==
--- NOTE | 2020-12-22 11:56 | BD ---
EXAMINATION TYPE: Axial Bone Density DATE OF EXAM: 12/22/2020 COMPARISON: 01/24/2018 DEXA bone scan. CLINICAL HISTORY: Postmenopausal female. Height: 59 IN Weight: 197 LBS FRAX RISK QUESTIONS: History of Fracture in Adulthood: LT WRIST AGE 60 Secondary Osteoporosis: 3. Menopause before 45: PARTIAL HYST AGE 39 RISK FACTORS HISTORY OF: History of Wrist Fracture: YES AGE 60 LT Surgery to Wrist (left): AGE 60 LT WRIST Active: LIMITED Postmenopausal woman: PARTIAL HYST AGE 39 MEDICATIONS: Thyroid Medications: YES Which medication: Synthroid How Lon YEARS Osteoporosis Medications: NOT NOW Which medication: Fosamax How Lon YEAR Additional Medications: VIT D,SYNTHROID, ATORVASTATIN, INHALER, HEART MEDS, EXAM MEASUREMENTS: Bone mineral densitometry was performed using the [employer] System. Bone mineral density as measured about the Lumbar spine is: ----- L1-L4(G/cm2): 1.386 T Score Values are as follows: ----- L2: 0.2 ----- L3: 3.4 ----- L4: 3.2 ----- L1-L4: 1.7 Bone mineral density has: Decreased -0.5% since study of: 01/24/2018 Bone mineral density about the R hip (g/cm2): 0.778 Bone mineral density about the L hip (g/cm2): 0.744 T Score values are as follows: -----R Neck: -1.9 -----L Neck: -2.1 -----R Total: -1.6 -----L Total: -1.4 Bone mineral density has: Decreased -4.3% since study of: 01/24/2018 IMPRESSION: Osteopenia (T Score between -2.5 and -1) remains present. There is slightly increased risk of fracture and the patient may be considered for treatment. Re-Screen 2-5 years. NOTE: T-SCORE=SD OF THE YOUNG ADULT MEAN.
--- NOTE | 2020-12-23 12:02 | MM ---
Reason for exam: screening (asymptomatic). Last mammogram was performed 1 year and 10 months ago. History: Patient is postmenopausal and has history of other cancer at age 59. Family history of premenopausal breast cancer in mother at age 40. Took hormonal contraceptives for 15 years. Physical Findings: A clinical breast exam by your physician is recommended on an annual basis and results should be correlated with mammographic findings. MG 3D Screening Mammo W/Cad Bilateral CC and MLO view(s) were taken. Prior study comparison: February 26, 2019, bilateral MG 3d screening mammo w/cad. January 24, 2018, bilateral MG 3d screening mammo w/cad. January 11, 2017, right breast US breast workup limited RT. The breast tissue is almost entirely fat. Asymmetric breast tissue possibly related to device on MLO (1/2) 18cm from nipple. This finding is changed when compared with previous exams. ASSESSMENT: Incomplete: need additional imaging evaluation, BI-RAD 0 RECOMMENDATION: Special view mammogram of the left breast. If lesion persists on supplemental views, image directed ultrasound is recommended. [facility] will attempt to contact patient to return for supplemental views and ultrasound if indicated.
== END | disposition home or self-care (01) ==
LOC: RADMAMWWP 09:12
PROVIDERS: ATTEND Internal Medicine
DX: Z12.31 Encounter for screening mammogram for malignant neoplasm of breast (principal); Z80.3 Family history of malignant neoplasm of breast; M85.89 Other specified disorders of bone density and structure, multiple sites; Z78.0 Asymptomatic menopausal state
CPT/HCPCS: 77063; 77067; 77080

== ENCOUNTER → 2020-12-29 | Outpatient (CLI) | payer MEDICARE ==
--- NOTE | 2020-12-30 07:36 | MM ---
Reason for exam: additional evaluation requested from abnormal screening. Last mammogram was performed less than 1 month ago. History: Patient is postmenopausal and has history of other cancer at age 59. Family history of premenopausal breast cancer in mother at age 40. Took hormonal contraceptives for 15 years. Physical Findings: Nurse did not find any significant physical abnormalities on exam. MG 3D Work Up W/Cad LT LM and spot compression MLO view(s) were taken of the left breast. Prior study comparison: December 22, 2020, bilateral MG 3d screening mammo w/cad. February 26, 2019, bilateral MG 3d screening mammo w/cad. January 24, 2018, bilateral MG 3d screening mammo w/cad. There are scattered fibroglandular densities. Left pacemaker generator. Unable to fully pull in the tissue for and adequate spot MLO of the far posterior asymmetric density. However, the density is seen on true lateral and seem to spread out. Scar is suspected. These results were verbally communicated with the patient and result sheet given to the patient on 12/29/20. ASSESSMENT: Probably benign, BI-RAD 3 RECOMMENDATION: Follow-up diagnostic mammogram of the left breast in 6 months.
== END | disposition home or self-care (01) ==
LOC: RADMAMWWP 13:38
PROVIDERS: ATTEND Internal Medicine
DX: R92.2 Inconclusive mammogram (principal); Z80.3 Family history of malignant neoplasm of breast
CPT/HCPCS: 77065; G0279; 77061

== ENCOUNTER → 2021-06-04 | Outpatient (CLI) | payer MEDICARE ==
--- NOTE | 2021-06-05 08:02 | CT ---
EXAMINATION TYPE: CT chest wo con CT DLP: 442 mGycm, Automated exposure control for dose reduction was used. DATE OF EXAM: 06/04/2021 3:15 PM COMPARISON: CT chest 09/04/2020. CLINICAL INDICATION:Female, 75 years old with history of R06.09 Dyspnea on exertion, SOB, COPD, h/o C OVID TECHNIQUE: Multiple axial images were obtained through the chest without IV contrast. Lack of IV or o ral contrast limits evaluation of solid and hollow organ viscera. FINDINGS: LUNGS/ PLEURA: No evidence of focal consolidation, pneumothorax or pleural effusion. Paraseptal and c entrilobular emphysema changes are noted most pronounced in the lung apices. Scattered pulmonary nodu les appear stable dating back to at least 2017 examples include: Stable right upper lobe 7 mm pulmonary nodule (image 22). Stable right middle lobe 8 mm pulmonary nodule (image 32). Stable right lower lobe 7 mm pulmonary nodule (image 36). Left lower lobe 6 mm pulmonary nodule (image 40). Left upper lobe calcified granuloma. AIRWAY: Patent and unremarkable. HEART: The heart is mildly dilated for size. Left anterior chest wall pacemaker generator with right atrial and 2 right ventricular leads. There is moderate three-vessel coronary artery atherosclerosis lung with mitral valve annular calcifications. MEDIASTINUM: Right low paratracheal lymph node measuring up to 24 mm, previously 19 mm. Tracheal lymph node measuring up to 12 mm in short axis, previously 9 mm. Partially calcified left me diastinal lymph nodes. VASCULATURE: No aortic aneurysm. Atherosclerosis of the aorta. The pulmonary trunk is dilated measur ing up to 38 mm. MUSCULOSKELETAL: No acute osseous abnormalities . Multilevel disc degeneration changes. SOFT TISSUES/LYMPH NODES: Unremarkable. LOWER NECK: No significant findings. UPPER ABDOMEN: Stable right adrenal nodule measuring up to 29 m dating back to at least 2017 and like ly representing benign adrenal adenoma. IMPRESSION: 1. Slightly increased in size of right low paratracheal lymph node now measuring up to 24 mm in short axis. Clinical correlation and tissue sampling if not already performed. 2. Scattered pulmonary nodules which appear stable dating back to at least 2017. Continued attention on follow-up imaging with low dose CT chest in 12 months. 3. Moderate emphysema superimposed on chronic interstitial lung disease. 4. Findings suggestive of pulmonary hypertension.
== END | disposition home or self-care (01) ==
LOC: RADCTMAIN 14:52
PROVIDERS: ATTEND Internal Medicine
DX: R91.8 Other nonspecific abnormal finding of lung field (principal); R59.0 Localized enlarged lymph nodes; J43.2 Centrilobular emphysema; J84.9 Interstitial pulmonary disease, unspecified; Z86.16 Personal history of COVID-19
CPT/HCPCS: 71250

== ENCOUNTER → 2021-12-10 | Outpatient (CLI) | payer MEDICARE ==
--- NOTE | 2021-12-11 11:38 | PE ---
EXAMINATION TYPE: PET CT fusion skull to thigh DATE OF EXAM: 12/10/2021 COMPARISON: Prior PET/CT November 02, [address] 2016 HISTORY: Solitary pulmonary nodule. TECHNIQUE: Following the intravenous administration of 11 mCi of F-18 FDG, whole body images are per formed from the skull base to the midthigh. Images are reviewed on the computer in the coronal, axia l, and sagittal planes. Reconstructed rotating images are created on independent workstation and rev iewed on the computer. A localization and attenuation correction CT is performed in conjunction wit h the PET scan. Blood glucose level equals 104 SCAN: Initial Scan FINDINGS: SKULL BASE AND NECK: No suspicious new hypermetabolic uptake. CHEST, MEDIASTINUM, AND HILAR REGION: Patient has a slightly larger right paratracheal lymph node axi al image 69 measuring 2.4 x 1.8 cm versus prior studies but there is currently ametabolic. Enlarged r ight hilar lymph nodes seen better on 2016 contrast-enhanced CT with infrahilar 2.0 x 1.8 cm lymph no de axial image [address] show no obvious interval growth or abnormal hypermetabolic uptake on cur rent study. No new suspicious areas of abnormal hypermetabolic uptake. ABDOMEN AND PELVIS: No areas of new abnormal hypermetabolic uptake. Normal excretion is redemonstrate d. OSSEOUS STRUCTURES: No areas of new abnormal hypermetabolic uptake. OTHER CT: There is cardiomegaly with dual-lead pacemaker/defibrillator. Enlarged pulmonary arteries c onsistent with underlying pulmonary artery hypertension are redemonstrated. Stable 5-6 mm nodule or n odular scarring anterior right upper lobe axial image 72 on current study remains ametabolic. Backgro und mild to moderate underlying emphysematous change greatest in the upper lobes is redemonstrated. Sigmoid colonic diverticulosis redemonstrated. Multilevel spurring in the spine. Multilevel disc spac e narrowing and facet arthropathy in the lumbar spine. Moderate calcified plaque of the abdominal aor ta extends into branch vessels. IMPRESSION: Slightly more prominent right paratracheal lymph node is ametabolic currently. No areas o f abnormal hypermetabolic uptake identified on current study to suggest malignancy.
== END | disposition home or self-care (01) ==
LOC: RADPETMAIN 10:39
PROVIDERS: ATTEND Internal Medicine
DX: R59.0 Localized enlarged lymph nodes (principal)
CPT/HCPCS: 78815; A9552

== ENCOUNTER → 2022-06-06 | Outpatient (CLI) | payer MEDICARE ==
--- NOTE | 2022-06-06 13:14 | US ---
EXAMINATION TYPE: US kidneys/renal and bladder DATE OF EXAM: 06/06/2022 COMPARISON: CT 2021 CLINICAL HISTORY: N18.32 ckd stage 3B. CKD stage 3B. EXAM MEASUREMENTS: Right Kidney: 10.8 x 4.9 x 4.0 cm Left Kidney: 9.6 x 4.2 x 4.3 cm Right Kidney: Hypoechoic area seen upper pole: 1.8 x 1.9 x 1.9 cm. Left Kidney: Anechoic area seen lower pole: 1.6 x 1.6 x 1.3 cm. Bladder: Appears anechoic. Bilateral Jets seen: Yes IMPRESSION: Simple appearing cysts noted within both kidneys. No solid masses detected.
== END | disposition home or self-care (01) ==
LOC: RADUSWWP 12:23
PROVIDERS: ATTEND Internal Medicine Nephrology
DX: N18.32 Chronic kidney disease, stage 3b (principal); N28.1 Cyst of kidney, acquired
CPT/HCPCS: 76770

== ENCOUNTER → 2022-07-25 | Outpatient (CLI) | payer MEDICARE ==
--- NOTE | 2022-07-25 22:41 | CT ---
EXAMINATION TYPE: CT chest wo con DATE OF EXAM: 07/25/2022 COMPARISON: PET/CT 12/11/2011 HISTORY: 76-year-old female R06.09, shortness of breath, dyspnea. History of COPD TECHNIQUE: Contiguous axial scanning of the chest without IV contrast. Coronal and sagittal reconstru ctions performed. CT DLP: 378.60 mGycm Automated exposure control for dose reduction was used. FINDINGS: Left anterior chest wall pacemaker generator with right atrial and right ventricular leads. Heart is borderline in size without pericardial effusion. Dense mitral annular calcifications are pre sent. Scattered three-vessel coronary artery calcifications are also demonstrated. Ectatic ascending aorta at 3.8 cm with mild to moderate atherosclerotic arch calcifications and bovin e configuration to the aortic arch. Right paratracheal lymph node measures 2.2 x 1.1 cm. This is in comparison to 12/10/2021 from which ti me it is unchanged. A lower right paratracheal node measures 2.7 x 2.4 cm versus 3.0 x 2.2 cm, previo usly, not significantly changed. Surveillance follow-up is recommended given large size. Large caliber to the main right and left pulmonary arteries measuring up to 3.6 cm suggesting underly ing pulmonary hypertension. Moderate centrilobular and paraseptal emphysema is present. Mild interstitial prominence and mild to moderate bronchial wall thickening. Mild biapical pleural-parenchymal scarring. The mild reticular c hanges throughout the lungs. * 8 mm anterior right basilar pulmonary nodule shows slight increasing fullness having measured 7 mm , previously. * 7 mm anterior right midlung pulmonary nodule, axial image 20 is unchanged. * A couple additional right lower lobe pulmonary nodules measuring 5 mm and 6 mm, axial image 28 and 33 were also present previously. Ongoing follow-up recommended. No consolidation or pleural effusion. Visualized upper abdomen shows an indeterminate right adrenal nodule measuring 3.3 x 2.2 cm, unchange d. Statistically representing an adrenal adenoma but this can also be reassessed on surveillance foll ow-up. Moderate atherosclerotic calcifications visualized abdominal aorta. Bones: There is a superior endplate fracture of T10 redemonstrated. Mild retropulsion into the ventra l spinal canal. No ghada canal compromise. IMPRESSION: 1. COPD WITH MODERATE EMPHYSEMA AND PULMONARY ARTERIAL HYPERTENSION. SUSPECT SOME UNDERLYING MILD INT ERSTITIAL FIBROSIS. 2. CAD WITH 3 VESSEL CORONARY ARTERY CALCIFICATIONS. DENSE MITRAL ANNULAR CALCIFICATIONS. 3. ANNUAL SURVEILLANCE FOLLOW-UP RECOMMENDED TO REASSESS THE SCATTERED PULMONARY NODULES MEASURING UP TO 8 MM IN THE COUPLE ENLARGED RIGHT PARATRACHEAL LYMPH NODES MEASURING UP TO 2.7 CM. 4. AN INDETERMINATE 3.3 CM RIGHT ADRENAL NODULE SHOULD ALSO BE REASSESSED AT THE SURVEILLANCE FOLLOW- UP. 5. T10 SUPERIOR ENDPLATE FRACTURE WITH MILD RETROPULSION INTO THE VENTRAL SPINAL CANAL REDEMONSTRATED . THIS WAS PRESENT ON 12/10/2021 WELL.
== END | disposition home or self-care (01) ==
LOC: RADCTMAIN 12:01
PROVIDERS: ATTEND Internal Medicine
DX: I25.10 Atherosclerotic heart disease of native coronary artery without angina pectoris (principal); J43.2 Centrilobular emphysema; I27.21 Secondary pulmonary arterial hypertension; R91.8 Other nonspecific abnormal finding of lung field; E27.8 Other specified disorders of adrenal gland; R59.0 Localized enlarged lymph nodes
CPT/HCPCS: 71250

== ENCOUNTER 2023-04-09 14:45 | Inpatient (IN) | payer MEDICARE ==
--- NOTE | 2023-04-09 15:20 | XR ---
EXAMINATION TYPE: XR chest 2V DATE OF EXAM: 04/09/2023 3:15 PM CLINICAL INDICATION:Female, 77 years old with history of difficulty breathing. COMPARISON: Chest radiographs from 01/20/2023 TECHNIQUE: XR chest 2V Frontal and lateral views of the chest. FINDINGS: Lungs/Pleura: Hazy bibasilar airspace opacities are identified. No evidence of pleural effusion or pn eumothorax. Pulmonary vascularity: Mild pulmonary vascular congestion. Heart/mediastinum: Minimal cardiomegaly. Atherosclerotic calcifications are seen in the aorta. Musculoskeletal: No acute osseous pathology. Other findings: Left chest wall cardiac AICD device with intact leads. IMPRESSION: Mild pulmonary edema and hazy airspace opacities, findings may relate to underlying heart failure.
[2023-04-09 15:27] LABS: Anisocytosis Slight; Basophils # (A) 0.1 k/uL (0-0.2); Basophils % (A) 1 %; Eosinophils # (A) 0.1 k/uL (0-0.7); Eosinophils % (A) 1 %; HCT 36.8 % (34.0-46.0); HGB 11.7 gm/dL (11.4-16.0); Hypochromasia Slight; Lymphocytes # (A) 0.9 k/uL (1.0-4.8); Lymphocytes % (A) 9 %; MCH 27.3 pg (25.0-35.0); MCHC 31.9 g/dL (31.0-37.0); MCV 85.5 fL (80.0-100.0); Mean Platelet Volume 8.8; Monocytes # (A) 0.6 k/uL (0-1.0); Monocytes % (A) 6 %; Neutrophils # (A) 8.3 k/uL (1.3-7.7); Neutrophils % (A) 83 %; Platelet Count 166 k/uL (150-450); RDW 17.6 % (11.5-15.5); WBC 10.1 k/uL (3.8-10.6)
[2023-04-09 15:41] LABS: INR 1.2 (<1.2); Partial Thromboplastin Time 27.8 sec (22.0-30.0); Prothrombin Time 13.2 sec (10.0-12.5)
[2023-04-09 15:48] LABS: ALT 12 U/L (4-34); AST 29 U/L (14-36); African American GFR (CKD) 60 (>60 ml/min/1.73 sqM); Albumin 3.9 g/dL (3.5-5.0); Alkaline Phosphatase 121 U/L (38-126); Anion Gap 9 mmol/L; Blood Urea Nitrogen 26 mg/dL (7-17); Calcium 9.2 mg/dL (8.4-10.2); Carbon Dioxide 21 mmol/L (22-30); Chloride 104 mmol/L (98-107); Glucose 118 mg/dL (74-99); Non-African American GFR(CKD) 52 (>60 ml/min/1.73 sqM); Potassium 3.8 mmol/L (3.5-5.1); Sodium 134 mmol/L (137-145); Total Bilirubin 1.4 mg/dL (0.2-1.3); Total Protein 7.6 g/dL (6.3-8.2)
[2023-04-09 15:56] LABS: NT-Pro-B-Type Natriuretic Pept 16000 pg/mL
[2023-04-09] MEDS ORDERED: methylPREDNISolone SOD SUCCI 125 MG/2 ML VIAL IV STA (16:35)
[2023-04-09] MEDS ORDERED: FUROSEMIDE 10 MG/ML 4 ML VIAL IV STA (16:36)
[2023-04-09] MEDS ORDERED: NALOXONE 0.4 MG/ML 1 ML VIAL IV PRN (16:37)
--- NOTE | 2023-04-09 16:37 | ED ---
SOB HPI - General Chief Complaint: Shortness of Breath Stated Complaint: RASHAD Time Seen by Provider: 04/09/23 14:50 Source: patient, EMS Mode of arrival: EMS Limitations: no limitations - History of Present Illness Initial Comments: 77-year-old female with past medical history of A-fib, pacemaker, congestive heart failure, COPD who presents to the emergency department with reported shortness of breath. States that she has had increased work of breathing over the last couple of days which acutely worsened last night. She has history of recurrent pneumonia. Patient normally wears 2 L of oxygen at home. States that she had to turn it up to 3 because her oxygen was in the 80s and she was working to breathe. She did have chills late last night but denies any fevers. She has taken 2 breathing treatments at home today and was provided 1 by EMS. Patient arrives and still requires 4 L of oxygen to maintain oxygen saturations of 92%. She denies any chest pain. Does admit to a productive cough. No lower extremity swelling. She has been taking her diuretics as directed. No other alleviating, precipitating modifying factors - Related Data Home Medications Medication Instructions Recorded Confirmed Vit C/E/Zn/Coppr/Lutein/Zeaxan 1 cap PO BID 03/02/15 04/09/23 [Preservision Areds 2 Softgel] Levothyroxine Sodium [Synthroid] 75 mcg PO DAILY 10/22/18 04/10/23 allopurinoL [Zyloprim] 100 mg PO DAILY 10/22/18 04/09/23 Fluticasone/Umeclidin/Vilanter 1 puff INHALATION RT-DAILY 07/01/19 04/09/23 [John Ellipta 100-62.5-25] Aspirin [[place] Aspirin EC] 81 mg PO DAILY 08/09/19 04/09/23 Cholecalciferol [Vitamin D3 (25 25 mcg PO DAILY 05/23/20 04/09/23 Mcg = 1000 Iu)] Ipratropium-Albuterol Nebulize 3 ml INHALATION RT-QID 10/28/21 04/09/23 [Duoneb 0.5 mg-3 mg/3 ml Soln] Apixaban [Eliquis] 5 mg PO BID 04/09/23 04/09/23 Metoprolol Succinate (ER) [Toprol 100 mg PO DAILY 04/09/23 04/09/23 XL] Sodium Bicarbonate 325 mg PO BID 04/09/23 04/09/23 calcitrioL 0.25 mcg PO WE 04/09/23 04/09/23 guaiFENesin [Mucinex] 600 mg PO BID 04/09/23 04/09/23 Previous Rx's Medication Instructions Recorded Atorvastatin [Lipitor] 40 mg PO HS #30 tab 03/04/15 Albuterol Sulfate [Ventolin HFA] 2 puff INHALATION RT-QID PRN 7 04/13/23 Days #1 each Ciprofloxacin HCl [Cipro] 500 mg PO BID 5 Days #10 tab 04/13/23 Famotidine [Pepcid] 20 mg PO DAILY #15 tab 04/13/23 Furosemide [Lasix] 40 mg PO BID@0900,1600 #60 tab 04/13/23 predniSONE 0 mg PO DIRECTED #24 tab 04/13/23 Allergies Allergy/AdvReac Type Severity Reaction Status Date / Time codeine Allergy Itching Verified 04/09/23 16:47 Review of Systems ROS Statement: Those systems with pertinent positive or pertinent negative responses have been documented in the HPI. ROS Other: All systems not noted in ROS Statement are negative. Past Medical History Past Medical History: Atrial Fibrillation, Asthma, Coronary Artery Disease (CAD), Cancer, COPD, Eye Disorder, Hearing Disorder / Deafness, Myocardial Infarction (AR), Osteoarthritis (OA), Pneumonia, Thyroid Disorder Additional Past Medical History / Comment(s): See Dr Trimble's H&P, Gout, hiatal hernia, Macular Degeneration, Skin Cancer, degenerative disc disease, osteoporosis. UTI 07/01/19. Last Myocardial Infarction Date:: 2011 History of Any Multi-Drug Resistant Organisms: None Reported Past Surgical History: Cardiac Ablation, Cholecystectomy, Heart Catheterization With Stent, Hysterectomy, Orthopedic Surgery, Pacemaker, Tonsillectomy Additional Past Surgical History / Comment(s): Right shoulder surgery, left wrist surgery. Thyroid Nodule removed, sylvia Cataracts, LOOP RECORDER-11/23/17; CHRIO ABLATION 03/08/18 WITH CARDIOVERSION Past Anesthesia/Blood Transfusion Reactions: No Reported Reaction Date of Last Stent Placement:: 2011 Type of Cardiac Device: Permanent Pacemaker Device Placement Date:: 07/2019 Past Psychological History: No Psychological Hx Reported Smoking Status: Former smoker Past Alcohol Use History: None Reported Past Drug Use History: None Reported - Past Family History Mother Family Medical History: Cancer, Congestive Heart Failure (CHF), Myocardial Infarction (AR), Pneumonia, Pulmonary Embolus Additional Family Medical History / Comment(s): breast CA Father Family Medical History: CVA/TIA, Myocardial Infarction (AR) General Exam Limitations: no limitations General appearance: alert, in no apparent distress Head exam: Present: atraumatic, normocephalic, normal inspection Eye exam: Present: normal appearance, PERRL, EOMI. Absent: scleral icterus, conjunctival injection, periorbital swelling ENT exam: Present: normal exam, mucous membranes moist Neck exam: Present: normal inspection. Absent: tenderness, meningismus, lymphadenopathy Respiratory exam: Present: rales, accessory muscle use. Absent: respiratory distress, wheezes, rhonchi, stridor Cardiovascular Exam: Present: regular rate, normal rhythm, normal heart sounds. Absent: systolic murmur, diastolic murmur, rubs, gallop, clicks GI/Abdominal exam: Present: soft, normal bowel sounds. Absent: distended, tenderness, guarding, rebound, rigid Extremities exam: Present: normal inspection, full ROM, normal capillary refill. Absent: tenderness, pedal edema, joint swelling, calf tenderness Back exam: Present: normal inspection Neurological exam: Present: alert, oriented X3, CN II-XII intact Psychiatric exam: Present: normal affect, normal mood Skin exam: Present: warm, dry, intact, normal color. Absent: rash Course Vital Signs 04/09/23 04/09/23 04/09/23 14:49 16:52 19:52 Temperature 98.0 F Pulse Rate 79 65 75 Pulse Rate [ Pulse Oximetery ] Respiratory 18 18 Rate Blood Pressure 125/56 121/71 Blood Pressure [Right Arm] O2 Sat by Pulse 92 L 93 L Oximetry 04/09/23 04/09/23 04/09/23 20:01 21:59 23:42 Temperature 97.7 F Pulse Rate 64 76 Pulse Rate [ 66 Pulse Oximetery ] Respiratory 20 Rate Blood Pressure Blood Pressure 139/91 [Right Arm] O2 Sat by Pulse 91 L Oximetry 04/09/23 04/10/23 04/10/23 23:51 02:00 03:27 Temperature 97.8 F Pulse Rate 78 65 Pulse Rate [ 64 Pulse Oximetery ] Respiratory 20 Rate Blood Pressure Blood Pressure 126/58 [Right Arm] O2 Sat by Pulse 96 Oximetry 04/10/23 04/10/23 04/10/23 03:34 08:27 08:38 Temperature Pulse Rate 68 75 66 Pulse Rate [ Pulse Oximetery ] Respiratory Rate Blood Pressure Blood Pressure [Right Arm] O2 Sat by Pulse Oximetry 04/10/23 04/10/23 04/10/23 10:00 12:29 12:41 Temperature 97.6 F Pulse Rate 64 66 Pulse Rate [ 71 Pulse Oximetery ] Respiratory 20 Rate Blood Pressure Blood Pressure 145/55 [Right Arm] O2 Sat by Pulse 92 L Oximetry 04/10/23 04/10/23 04/10/23 14:00 16:24 16:32 Temperature 97.5 F L Pulse Rate 65 66 Pulse Rate [ 87 Pulse Oximetery ] Respiratory 14 Rate Blood Pressure Blood Pressure 135/68 [Right Arm] O2 Sat by Pulse 95 Oximetry 04/10/23 04/10/23 04/10/23 19:41 19:53 20:34 Temperature Pulse Rate 66 68 67 Pulse Rate [ Pulse Oximetery ] Respiratory 18 Rate Blood Pressure 195/68 Blood Pressure [Right Arm] O2 Sat by Pulse 92 L Oximetry 04/10/23 21:37 Temperature 97.0 F L Pulse Rate 66 Pulse Rate [ Pulse Oximetery ] Respiratory 19 Rate Blood Pressure 147/64 Blood Pressure [Right Arm] O2 Sat by Pulse 92 L Oximetry Medical Decision Making - Medical Decision Making Was pt. sent in by a medical professional or institution (, PA, ACCOUNTS RECEIVABLE REPRESENTATIVE, urgent care, hospital, or senior care...) When possible be specific @ -No Did you speak to anyone other than the patient for history (EMS, parent, family, police, friend...)? What history was obtained from this source @ -EMS Did you review nursing and triage notes (agree or disagree)? Why? @ -I reviewed and agree with nursing and triage notes Were old charts reviewed (outside hosp., previous admission, EMS record, old EKG, old radiological studies, urgent care reports/EKG's, senior care records)? Report findings @ -No old charts were reviewed Differential Diagnosis (chest pain, altered mental tatus, abdominal pain women, abdominal pain men, vaginal bleeding, weakness, fever, dyspnea, syncope, headache, dizziness, GI bleed, back pain, seizure, CVA, palpatations, mental health, musculoskeletal)? @ -Differential Dyspnea: Coronary syndrome, arrhythmia, tamponade, asthma, COPD, pulmonary embolism, pneumonia, pneumothorax, pulmonary effusion, anaphylaxis, diabetic ketoacidosis, flailed chest, pulmonary contusion, diaphragmatic ruptu anemia, neuromuscular, this is not meant to be an all-inclusive list. EKG interpreted by me (3pts min.). @ -Yes and demonstrates ventricularly paced rhythm with a rate of 65. QRS 156. QTc of 441. Pacemaker captures appropriately X-rays interpreted by me (1pt min.). @ -Yes and demonstrates pulmonary edema CT interpreted by me (1pt min.). @ -None done U/S interpreted by me (1pt. min.). @ -No What testing was considered but not performed or refused? (CT, X-rays, U/S, labs)? Why? @ -None What meds were considered but not given or refused? Why? @ -None Did you discuss the management of the patient with other professionals (gomez herrmann i.eSandi Champion, PA, ACCOUNTS RECEIVABLE REPRESENTATIVE, lab, RT, psych nurse, social research assistant, township clerk, teacher, audit officer, child support case officer)? Give summary @ -Spoke with admitting physician for admission Was smoking cessation discussed for >3mins.? @ -No Was critical care preformed (if so, how long)? @ -No Were there social determinants of health that impacted care today? How? (Homelessness, low income, unemployed, alcoholism, drug addiction, transportation, low edu. Level, literacy, decrease access to med. care, [facility], rehab)? @ -No Was there de-escalation of care discussed even if they declined (Discuss DNR or withdrawal of care, Hospice)? DNR status @ -No What co-morbidities impacted this encounter? (DM, HTN, Smoking, COPD, CAD, Cancer, CVA, ARF, Chemo, Hep., AIDS, mental health diagnosis, sleep apnea, morbid obesity)? @ -COPD, CHF Was patient admitted / discharged? Hospital course, mention meds given and route , prescriptions, significant lab abnormalities, going to OR and other pertinent info. @ -Upon arrival patient was placed into the ED room and placed on continuous pulse ox and cardiac monitoring. IV was established. Laboratory studies are conducted. Patient did receive a breathing treatment en route to the hospital. Laboratory studies reviewed. Patient is positive for RSV. Chest x-ray demon strates possible pulmonary edema. Due to patient's hypoxia I did recommend admission. Patient was agreeable to this. Spoke with admitting physician and patient remained in stable condition awaiting a bed Undiagnosed new problem with uncertain prognosis? @ -No Drug Therapy requiring intensive monitoring for toxicity (Heparin, Nitro, Insulin, Cardizem)? @ -No Were any procedures done? @ -No Diagnosis/symptom? @ -Acute respiratory insufficiency on chronic respiratory failure, COPD exacerbation, CHF exacerbation, RSV Acute, or Chronic, or Acute on Chronic? @ -Acute on chronic Uncomplicated (without systemic symptoms) or Complicated (systemic symptoms)? @ -Complicated Side effects of treatment? @ -No Exacerbation, Progression, or Severe Exacerbation? @ -Yes Poses a threat to life or bodily function? How? (Chest pain, USA, AR, pneumonia, PE, COPD, DKA, ARF, appy, cholecystitis, CVA, Diverticulitis, Homicidal, Suicidal, threat to staff... and all critical care pts) @ -Yes as patient is hypoxic and requiring more oxygen - Lab Data Result diagrams: 04/11/23 06:00 04/12/23 14:02 Lab Results 04/09/23 04/09/23 04/09/23 Range/Units 15:05 15:05 15:05 WBC 10.1 (3.8-10.6) k/uL RBC 4.30 (3.80-5.40) m/uL Hgb 11.7 (11.4-16.0) gm/dL Hct 36.8 (34.0-46.0) % MCV 85.5 (80.0-100.0) fL MCH 27.3 (25.0-35.0) pg MCHC 31.9 (31.0-37.0) g/dL RDW 17.6 H (11.5-15.5) % Plt Count 166 (150-450) k/uL MPV 8.8 Neutrophils % 83 % Lymphocytes % 9 % Monocytes % 6 % Eosinophils % 1 % Basophils % 1 % Neutrophils # 8.3 H (1.3-7.7) k/uL Lymphocytes # 0.9 L (1.0-4.8) k/uL Monocytes # 0.6 (0-1.0) k/uL Eosinophils # 0.1 (0-0.7) k/uL Basophils # 0.1 (0-0.2) k/uL Hypochromasia Slight Anisocytosis Slight PT 13.2 H (10.0-12.5) sec INR 1.2 H (<1.2) APTT 27.8 (22.0-30.0) sec Sodium 134 L (137-145) mmol/L Potassium 3.8 (3.5-5.1) mmol/L Chloride 104 (98-107) mmol/L Carbon Dioxide 21 L (22-30) mmol/L Anion Gap 9 mmol/L BUN 26 H (7-17) mg/dL Creatinine 1.04 (0.52-1.04) mg/dL Est GFR (CKD-EPI)AfAm 60 (>60 ml/min/1.73 sqM) Est GFR (CKD-EPI)NonAf 52 (>60 ml/min/1.73 sqM) Glucose 118 H (74-99) mg/dL Plasma Lactic Acid Malik (0.7-2.0) mmol/L Calcium 9.2 (8.4-10.2) mg/dL Total Bilirubin 1.4 H (0.2-1.3) mg/dL AST 29 (14-36) U/L ALT 12 (4-34) U/L Alkaline Phosphatase 121 (38-126) U/L Troponin I (0.000-0.034) ng/mL NT-Pro-B Natriuret Pep 41888 pg/mL Total Protein 7.6 (6.3-8.2) g/dL Albumin 3.9 (3.5-5.0) g/dL Influenza Type A (PCR) (Not Detectd) Influenza Type B (PCR) (Not Detectd) RSV (PCR) (Not Detectd) SARS-CoV-2 (PCR) (Not Detectd) 04/09/23 04/09/23 04/09/23 Range/Units 15:05 15:05 15:05 WBC (3.8-10.6) k/uL RBC (3.80-5.40) m/uL Hgb (11.4-16.0) gm/dL Hct (34.0-46.0) % MCV (80.0-100.0) fL MCH (25.0-35.0) pg MCHC (31.0-37.0) g/dL RDW (11.5-15.5) % Plt Count (150-450) k/uL MPV Neutrophils % % Lymphocytes % % Monocytes % % Eosinophils % % Basophils % % Neutrophils # (1.3-7.7) k/uL Lymphocytes # (1.0-4.8) k/uL Monocytes # (0-1.0) k/uL Eosinophils # (0-0.7) k/uL Basophils # (0-0.2) k/uL Hypochromasia Anisocytosis PT (10.0-12.5) sec INR (<1.2) APTT (22.0-30.0) sec Sodium (137-145) mmol/L Potassium (3.5-5.1) mmol/L Chloride (98-107) mmol/L Carbon Dioxide (22-30) mmol/L Anion Gap mmol/L BUN (7-17) mg/dL Creatinine (0.52-1.04) mg/dL Est GFR (CKD-EPI)AfAm (>60 ml/min/1.73 sqM) Est GFR (CKD-EPI)NonAf (>60 ml/min/1.73 sqM) Glucose (74-99) mg/dL Plasma Lactic Acid Malik 1.3 (0.7-2.0) mmol/L Calcium (8.4-10.2) mg/dL Total Bilirubin (0.2-1.3) mg/dL AST (14-36) U/L ALT (4-34) U/L Alkaline Phosphatase (38-126) U/L Troponin I 0.029 (0.000-0.034) ng/mL NT-Pro-B Natriuret Pep pg/mL Total Protein (6.3-8.2) g/dL Albumin (3.5-5.0) g/dL Influenza Type A (PCR) Not Detected (Not Detectd) Influenza Type B (PCR) Not Detected (Not Detectd) RSV (PCR) Detected A (Not Detectd) SARS-CoV-2 (PCR) Not Detected (Not Detectd) Disposition Clinical Impression: RSV (acute bronchiolitis due to respiratory syncytial virus), COPD exacerbation, CHF exacerbation, Hypoxia Disposition: ADMITTED IP TO THIS HOSP Condition: Serious Is patient prescribed a controlled substance at d/c from ED?: No Time of Disposition: 16:37 Decision to Admit Reason: Admit from EC Decision Date: 04/09/23 Decision Time: 16:37
[2023-04-09] MEDS: IPRATROPIUM-ALBUTEROL 3 ML NEB INHALATION SCH ×2 (19:52→23:40)
[2023-04-09 21:03] LABS: Appearance,Urine Clear (Clear); Bacteria,Urine Occasional /hpf; Bilirubin,Urine Negative (Negative); Blood,Urine Trace (Negative); Color,Urine Yellow; Glucose,Urine (UA) Negative (Negative); Hyaline Casts,Urine 13 /lpf (0-2); Ketones,Urine Negative (Negative); Leukocyte Esterase,Urine Negative (Negative); Mucus,Urine Rare /hpf; Nitrite,Urine Negative (Negative); PH, Urine 5.5 (5.0-8.0); Protein,Urine Negative (Negative); RBC,Urine 1 /hpf (0-5); Squamous Epithelial Cell,Urine 1 /hpf (0-4); Urobilinogen,Urine <2.0 mg/dL (<2.0); WBC,Urine 2 /hpf (0-5)
[2023-04-09] MEDS: APIXABAN 5 MG TAB PO SCH (21:36)
[2023-04-10] MEDS ORDERED: AZITHROMYCIN 500 MG TAB PO STA (01:01)
--- NOTE | 2023-04-10 01:29 | P.CNPUL ---
History of Present Illness Consult date: 04/10/23 Requesting physician: Pricilla Garcia Reason for consult: COPD, other (RSV positive) Chief complaint: Acute on chronic dyspnea x 2 days History of present illness: I am seeing this patient in new consultation today April 10, 2023 in the emergency room after she presented yesterday afternoon complaining of worsening shortness of breath and URI-like symptoms over the last 2 days. She did test positive for RSV on arrival. Patient is a 77-year-old white female with past medical history significant for moderate COPD, ILD, chronic hypoxemic respiratory failure, mediastinal lymphadenopathy, heart failure, atrial fibrillation, hypothyroidism, coronary artery disease, among other things. Her primary care provider is Dr. Elizabeth. Patient does follow with Dr. Antoine in the pulmonary office. As stated prior, the patient has been experiencing worsening shortness of breath, especially with exertion and at night. She does chronically utilize 2 L nasal cannula oxygen at bedtime. She has required increased oxygen demands, and has been using 3 L home O2 03/10. She normally controls her COPD with a combination of Trelegy inhaler, DuoNebs, and as needed Ventolin HFA. These have not provided any relief. She quit smoking in 2006. She has been complaining of a persistent cough with green sputum production. Denies any fevers, chest pain, hemoptysis. She does have some mild nonpitting lower extremity swelling. States that her kidney doctor reduced her Lasix dose from 40 mg twice daily to 20 mg twice daily 1 to 2 months ago. She denies any chest pain, heart palpitations, lightheadedness, syncopal events. Patient is currently lying in bed, on 3 L/min nasal cannula, in no acute distress. Chest x-ray on arrival showed mild pulmonary edema and cephalization, possibly relating to underlying heart failure. No obvious focal infiltrates or evidence of pneumonia. CBC on arrival was unremarkable. No leukocytosis. CMP has sodium 134, potassium 3.8, chloride 104, serum bicarb 21, BUN 26, creatinine 1.04, glucose 118. LFTs not elevated. Troponin 0.029. NT proBNP was significantly elevated at 16,000. RSV PCR was positive. Negative for influenza and COVID. She is currently afebrile. Vital signs are stable. Review of Systems REVIEW OF SYSTEMS: CONSTITUTIONAL: Denies any recent significant weight loss or weight gain. EYES: Denies change in vision. EARS, NOSE, MOUTH, THROAT: Denies headaches, denies sore throat. CARDIOVASCULAR: See HPI RESPIRATORY: See HPI GASTROINTESTINAL: Denies change in appetite, abdominal pain, nausea and vomiting, or diarrhea GENITOURINARY: Denies hematuria, denies infections. MUSKULOSKELETAL: Denies pain, denies swelling. INTEGUMENTARY: Denies rash, denies eczema. NEUROLOGICAL: Denies recent memory loss, no recent seizure activity. PSYCHIATRIC: Denies anxiety, denies depression. HEMATOLOGIC/LYMPHATIC: Denies anemia, denies enlarged lymph node Past Medical History Past Medical History: Atrial Fibrillation, Asthma, Coronary Artery Disease (CAD), Cancer, COPD, Eye Disorder, Hearing Disorder / Deafness, Myocardial Infarction ([place]), Osteoarthritis (OA), Pneumonia, Thyroid Disorder Additional Past Medical History / Comment(s): See Dr Trimble's H&P, Gout, hiatal hernia, Macular Degeneration, Skin Cancer, degenerative disc disease, osteoporosis. UTI 07/01/19. Last Myocardial Infarction Date:: 2011 History of Any Multi-Drug Resistant Organisms: None Reported Past Surgical History: Cardiac Ablation, Cholecystectomy, Heart Catheterization With Stent, Hysterectomy, Orthopedic Surgery, Pacemaker, Tonsillectomy Additional Past Surgical History / Comment(s): Right shoulder surgery, left wrist surgery. Thyroid Nodule removed, sylvia Cataracts, LOOP RECORDER-11/23/17; CHRIO ABLATION 03/08/18 WITH CARDIOVERSION 2nd ablatiion 2019 Past Anesthesia/Blood Transfusion Reactions: No Reported Reaction Date of Last Stent Placement:: 2011 Type of Cardiac Device: Permanent Pacemaker Device Placement Date:: 07/2019 Past Psychological History: No Psychological Hx Reported Smoking Status: Former smoker Past Alcohol Use History: None Reported Additional Past Alcohol Use History / Comment(s): started smoking at age 15(1961) and quit 2006, smoked 2ppd Past Drug Use History: None Reported - Past Family History Mother Family Medical History: Cancer, Congestive Heart Failure (CHF), Myocardial Infarction ([place]), Pneumonia, Pulmonary Embolus Additional Family Medical History / Comment(s): breast CA Father Family Medical History: CVA/TIA, Myocardial Infarction ([place]) Medications and Allergies Home Medications Medication Instructions Recorded Confirmed Type Albuterol Sulfate [Ventolin HFA] 2 puff INHALATION RT-QID PRN 08/11/13 04/09/23 History Vit C/E/Zn/Coppr/Lutein/Zeaxan 1 cap PO BID 03/02/15 04/09/23 History [Preservision Areds 2 Softgel] Atorvastatin [Lipitor] 40 mg PO HS #30 tab 03/04/15 04/09/23 Rx Levothyroxine Sodium [Synthroid] 75 mcg PO DIRECTED 10/22/18 04/09/23 History allopurinoL [Zyloprim] 100 mg PO DAILY 10/22/18 04/09/23 History Fluticasone/Umeclidin/Vilanter 1 puff INHALATION RT-DAILY 07/01/19 04/09/23 History [Treleroseline Ellipta 100-62.5-25] Aspirin [Hardin Aspirin EC] 81 mg PO DAILY 08/09/19 04/09/23 History Cholecalciferol [Vitamin D3 (25 25 mcg PO DAILY 05/23/20 04/09/23 History Mcg = 1000 Iu)] Ipratropium-Albuterol Nebulize 3 ml INHALATION RT-QID 10/28/21 04/09/23 History [Duoneb 0.5 mg-3 mg/3 ml Soln] Apixaban [Eliquis] 5 mg PO BID 04/09/23 04/09/23 History Furosemide [Lasix] 20 mg PO BID@0900,1500 04/09/23 04/09/23 History Metoprolol Succinate (ER) [Toprol 100 mg PO DAILY 04/09/23 04/09/23 History Xl] Sodium Bicarbonate 325 mg PO BID 04/09/23 04/09/23 History calcitrioL 0.25 mcg PO WE 04/09/23 04/09/23 History guaiFENesin [Mucinex] 600 mg PO BID 04/09/23 04/09/23 History Allergies Allergy/AdvReac Type Severity Reaction Status Date / Time codeine Allergy Itching Verified 04/09/23 16:47 Physical Exam Vitals: Vital Signs Temp Pulse Pulse Resp BP BP Pulse Ox 04/09/23 23:51 78 04/09/23 23:42 76 04/09/23 21:59 97.7 F 66 20 139/91 91 L 04/09/23 20:01 64 04/09/23 19:52 75 04/09/23 16:52 65 18 121/71 93 L 04/09/23 14:49 98.0 F 79 18 125/56 92 L Intake and Output 04/09/23 04/09/23 04/10/23 14:59 22:59 06:59 Other: Weight 73.028 kg 73.028 kg GENERAL EXAM: Alert, 77-year-old white female, comfortable in no apparent distress. HEAD: Normocephalic and atraumatic EYES: Normal reaction of pupils, equal size. NOSE: Clear with pink turbinates. THROAT: No erythema or exudates. NECK: No masses, no JVD. CHEST: No chest wall deformity. LUNGS: Equal air entry with expiratory wheezes heard throughout.. On 3 L/min nasal cannula. No conversational dyspnea or accessory muscle use.. CVS: S1 and S2 normal with no audible murmur, regular rhythm. No extra heart sounds ABDOMEN: No hepatosplenomegaly, active bowel sounds, no guarding or rigidity. SPINE: No scoliosis or deformity SKIN: No rashes CENTRAL NERVOUS SYSTEM: No focal deficits, tone is normal in all 4 extremities. EXTREMITIES: There is bilateral lower extremity mild nonpitting edema. No clubbing, or cyanosis. Peripheral pulses are intact. Results - Laboratory Findings CBC and BMP: 04/09/23 15:05 04/09/23 15:05 PT/INR, D-dimer PT 13.2 sec (10.0-12.5) H 04/09/23 15:05 INR 1.2 (<1.2) H 04/09/23 15:05 Abnormal lab findings: Abnormal Labs 04/09/23 04/09/23 04/09/23 15:05 15:05 15:05 RDW 17.6 H Neutrophils # 8.3 H Lymphocytes # 0.9 L PT 13.2 H INR 1.2 H Sodium 134 L Carbon Dioxide 21 L BUN 26 H Glucose 118 H Total Bilirubin 1.4 H Urine Blood Urine Bacteria Hyaline Casts Urine Mucus RSV (PCR) 04/09/23 04/09/23 15:05 20:45 RDW Neutrophils # Lymphocytes # PT INR Sodium Carbon Dioxide BUN Glucose Total Bilirubin Urine Blood Trace H Urine Bacteria Occasional H Hyaline Casts 13 H Urine Mucus Rare H RSV (PCR) Detected A - Diagnostic Findings Chest x-ray: image reviewed Assessment and Plan Assessment: Acute on chronic hypoxemic respiratory failure, currently on 3 L/min nasal cannula, multifactorial secondary to a combination of acute exacerbation of COPD, acute RSV tracheobronchitis, and acute exacerbation of chronic diastolic congestive heart failure. Chest x-ray on arrival showed mild pulmonary edema and cephalization, possibly relating to underlying heart failure. No obvious focal infiltrates or evidence of pneumonia. Acute RSV infection Moderate chronic obstructive pulmonary disease Chronic hypoxemic respiratory failure, normally maintained on 2 L at bedtime, secondary to above History of right paratracheal lymphadenopathy, ametabolic on most recent PET scan, being followed up on outpatient basis Coronary artery disease, with history of previous PCI/stent History of sick sinus syndrome and chronic atrial fibrillation, status post permanent biventricular pacemaker implantation, and chronically anticoagulated on Eliquis Hypothyroidism Obesity, with a BMI 33.6 kg/m Remote ex smoker Plan: Patient's medications, labs, chest x-ray were reviewed Continue supplemental oxygen Continue supportive treatment for acute RSV infection. Continue combination of bronchodilators, Symbicort inhaler, and IV Solu-Medrol. I did place the patient on empiric antibiotics. Check procalcitonin level and manage antibiotics accordingly. Agree with diuresis. Patient did receive an extra dose of Lasix 40 mg once, and her home dose of Lasix was restarted. Would recommend follow-up echocardiogram, if not already done outpatient. Pepcid was added for GI prophylaxis and Eliquis has been restarted. We will continue to follow I have personally seen and examined the patient, performed the documentation and the assessment and plan as written. Number of minutes spent on the visit: 20 Time with Patient: Greater than 30
[2023-04-10] MEDS: IPRATROPIUM-ALBUTEROL 3 ML NEB INHALATION SCH ×6 (03:26→23:47)
--- NOTE | 2023-04-10 08:22 | P.HPIM ---
History of Present Illness This is a pleasant 77 years old female with past medical history of multiple medical problems. 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 Flynn, she has history of A. fib 7 years status post 2 ablations which looks help and she has stents in her heart arteries before Patient presents because of worsening dyspnea over the last 2-3 days associated with a lot of coffee and green phlegm She is alert awake and oriented but looks lethargic in mild respiratory distress requiring more oxygen, at home she uses 2 L at night but currently she views a day and night She is still mild to moderately tachypneic but no chest pain. Patient says her throat hurts and the size of her chest when she coughs She denies GI urinary or neurological symptoms Alcohol or illicit drugs. She states that she has low appetite and her stool is soft but not ghada diarrhea She has some stress incontinence with coughing but now is much controlled Vitals are stable, oxygen requirements is for later permanent was saturating 91% Labs including CBC, INR, BMP and liver enzymes were unremarkable. Bilirubin is slightly up 1.4 Urine analysis is also suspicious of infection RSV test is positive Influenza and covid are negative Chest x-ray showed mild pulmonary congestion [place] radi[place] [id number]. Echocardiogram in 2021 showed ejection fraction of 55-60% However patient clinically looks euvolemic Review of Systems Review of systems CONSTITUTIONAL: No fever, no malaise, no fatigue. HEENT: No recent visual problems or hearing problems. Denied any sore throat. CARDIOVASCULAR: No orthopnea, PND, no palpitations, no syncope. PULMONARY: No chest wall tenderness, no hemoptysis. GASTROINTESTINAL: No diarrhea, no nausea, no vomiting, no abdominal pain. Normoactive bowel sounds. NEUROLOGICAL: No headaches, no weakness, no numbness. HEMATOLOGICAL: Denies any bleeding or petechiae. GENITOURINARY: Denies any burning micturition, frequency, or urgency. MUSCULOSKELETAL/RHEUMATOLOGICAL: Denies any joint pain, swelling, or any muscle pain. ENDOCRINE: Denies any polyuria or polydipsia. Past Medical History Past Medical History: Atrial Fibrillation, Asthma, Coronary Artery Disease (CAD), Cancer, COPD, Eye Disorder, Hearing Disorder / Deafness, Myocardial Infarction ([place]), Osteoarthritis ([place]), Pneumonia, Thyroid Disorder Additional Past Medical History / Comment(s): See Dr Trimble's H&P, Gout, hiatal hernia, Macular Degeneration, Skin Cancer, degenerative disc disease, osteoporosis. UTI 07/01/19. Last Myocardial Infarction Date:: 2011 History of Any Multi-Drug Resistant Organisms: None Reported Past Surgical History: Cardiac Ablation, Cholecystectomy, Heart Catheterization With Stent, Hysterectomy, Orthopedic Surgery, Pacemaker, Tonsillectomy Additional Past Surgical History / Comment(s): Right shoulder surgery, left wrist surgery. Thyroid Nodule removed, sylvia Cataracts, LOOP RECORDER-11/23/17; CHRIO ABLATION 03/08/18 WITH CARDIOVERSION 2nd ablatiion 2019 Past Anesthesia/Blood Transfusion Reactions: No Reported Reaction Date of Last Stent Placement:: 2011 Type of Cardiac Device: Permanent Pacemaker Device Placement Date:: 07/2019 Past Psychological History: No Psychological Hx Reported Smoking Status: Former smoker Past Alcohol Use History: None Reported Additional Past Alcohol Use History / Comment(s): started smoking at age 15(1961) and quit 2006, smoked 2ppd Past Drug Use History: None Reported - Past Family History Mother Family Medical History: Cancer, Congestive Heart Failure (CHF), Myocardial Infarction ([place]), Pneumonia, Pulmonary Embolus Additional Family Medical History / Comment(s): breast CA Father Family Medical History: CVA/TIA, Myocardial Infarction ([place]) Medications and Allergies Home Medications Medication Instructions Recorded Confirmed Type Albuterol Sulfate [Ventolin HFA] 2 puff INHALATION RT-QID PRN 08/11/13 04/09/23 History Vit C/E/Zn/Coppr/Lutein/Zeaxan 1 cap PO BID 03/02/15 04/09/23 History [Preservision Areds 2 Softgel] Atorvastatin [Lipitor] 40 mg PO HS #30 tab 03/04/15 04/09/23 Rx Levothyroxine Sodium [Synthroid] 75 mcg PO DIRECTED 10/22/18 04/09/23 History allopurinoL [Zyloprim] 100 mg PO DAILY 10/22/18 04/09/23 History Fluticasone/Umeclidin/Vilanter 1 puff INHALATION RT-DAILY 07/01/19 04/09/23 History [Trelegy Ellipta 100-62.5-25] Aspirin [Malcom Aspirin EC] 81 mg PO DAILY 08/09/19 04/09/23 History Cholecalciferol [Vitamin D3 (25 25 mcg PO DAILY 05/23/20 04/09/23 History Mcg = 1000 Iu)] Ipratropium-Albuterol Nebulize 3 ml INHALATION RT-QID 10/28/21 04/09/23 History [Duoneb 0.5 mg-3 mg/3 ml Soln] Apixaban [Eliquis] 5 mg PO BID 04/09/23 04/09/23 History Furosemide [Lasix] 20 mg PO BID@0900,1500 04/09/23 04/09/23 History Metoprolol Succinate (ER) [Toprol 100 mg PO DAILY 04/09/23 04/09/23 History Xl] Sodium Bicarbonate 325 mg PO BID 04/09/23 04/09/23 History calcitrioL 0.25 mcg PO WE 04/09/23 04/09/23 History guaiFENesin [Mucinex] 600 mg PO BID 04/09/23 04/09/23 History Allergies Allergy/AdvReac Type Severity Reaction Status Date / Time codeine Allergy Itching Verified 04/09/23 16:47 Physical Exam Vitals: Vital Signs Temp Pulse Pulse Resp BP BP Pulse Ox 04/10/23 03:34 68 04/10/23 03:27 65 04/10/23 02:00 97.8 F 64 20 126/58 96 04/09/23 23:51 78 04/09/23 23:42 76 04/09/23 21:59 97.7 F 66 20 139/91 91 L 04/09/23 20:01 64 04/09/23 19:52 75 04/09/23 16:52 65 18 121/71 93 L 04/09/23 14:49 98.0 F 79 18 125/56 92 L Intake and Output 04/09/23 04/10/23 04/10/23 22:59 06:59 14:59 Intake Total 200 Balance 200 Intake: Oral 200 Other: # Voids 3 Weight 73.028 kg GENERAL: The patient is alert and oriented x3, not in any acute distress. Well developed, well nourished. HEENT: Pupils are round and equally reacting to light. EOMI. No scleral icterus. No conjunctival pallor. Normocephalic, atraumatic. No pharyngeal erythema. No thyromegaly. CARDIOVASCULAR: S1 and S2 present. No murmurs, rubs, or gallops. -PULMONARY: Chest is clear to auscultation , bilateral expiratory wheezing , no crackles. ABDOMEN: Soft, nontender, nondistended, normoactive bowel sounds. No palpable organomegaly. MUSCULOSKELETAL: No joint swelling or deformity. EXTREMITIES: No cyanosis, clubbing, or pedal edema. NEUROLOGICAL: Gross neurological examination did not reveal any focal deficits. SKIN: No rashes. no petechiae. Results CBC & Chem 7: 04/09/23 15:05 04/09/23 15:05 Labs: Abnormal Lab Results - Last 24 Hours (Table) 04/09/23 04/09/23 04/09/23 Range/Units 15:05 15:05 15:05 RDW 17.6 H (11.5-15.5) % Neutrophils # 8.3 H (1.3-7.7) k/uL Lymphocytes # 0.9 L (1.0-4.8) k/uL PT 13.2 H (10.0-12.5) sec INR 1.2 H (<1.2) Sodium 134 L (137-145) mmol/L Carbon Dioxide 21 L (22-30) mmol/L BUN 26 H (7-17) mg/dL Glucose 118 H (74-99) mg/dL Total Bilirubin 1.4 H (0.2-1.3) mg/dL Urine Blood (Negative) Urine Bacteria (None) /hpf Hyaline Casts (0-2) /lpf Urine Mucus (None) /hpf RSV (PCR) (Not Detectd) 04/09/23 04/09/23 Range/Units 15:05 20:45 RDW (11.5-15.5) % Neutrophils # (1.3-7.7) k/uL Lymphocytes # (1.0-4.8) k/uL PT (10.0-12.5) sec INR (<1.2) Sodium (137-145) mmol/L Carbon Dioxide (22-30) mmol/L BUN (7-17) mg/dL Glucose (74-99) mg/dL Total Bilirubin (0.2-1.3) mg/dL Urine Blood Trace H (Negative) Urine Bacteria Occasional H (None) /hpf Hyaline Casts 13 H (0-2) /lpf Urine Mucus Rare H (None) /hpf RSV (PCR) Detected A (Not Detectd) Assessment and Plan Assessment: Acute asthma, COPD exacerbation Acute on chronic hypoxic respiratory failure Hearing disorder Chronic atrial fibrillation with RVR, on a was at home Coronary artery disease status post stent Hypothyroidism Plan: Continue with IV Solu-Medrol 40 mg, increase it to 60 mg Continue with Zithromax Sent sputum culture Continue with Eliquis home dose Continue with oral Lasix 20 mg twice daily and metoprolol 100 mg Continue with aspirin Pulmonary consult Labs and medication were reviewed.. Continue same treatment. Continue with symptomatic treatment. Resume home medication. Monitor labs and vitals. DVT and GI prophylaxis. Further recommendations as per clinical course of the patient DVT prophylaxis: Eliquis GI Prophylaxis: Pepcid PT/OT: Pending Prognosis is guarded
[2023-04-10] MEDS: SYMBICORT 160-4.5 MCG INHALER INHALATION SCH ×2 (08:27→19:40)
[2023-04-10 08:30] LABS: Basophils # (A) 0.01 X 10*3/uL (0.00-0.10); Basophils % (A) 0.2 %; Eosinophils # (A) 0 X 10*3/uL (0.04-0.35); Eosinophils % (A) 0 %; HCT 35.4 % (37.2-46.3); HGB 10.7 g/dL (12.0-15.0); Lymphocytes # (A) 0.36 X 10*3/uL (0.90-5.00); Lymphocytes % (A) 5.9 %; MCHC 30.2 g/dL (32.0-37.0); MCV 85.9 FL (80.0-97.0); Mean Platelet Volume 10.6 FL (9.5-12.2); Monocytes # (A) 0.12 X 10*3/uL (0.20-1.00); NRBC Per 100 WBC 0 X 10*3/uL (0.00-0.01); Neutrophils # (A) 5.59 X 10*3/uL (1.80-7.70); Neutrophils % (A) 91.6 %; Platelet Count 165 X 10*3/uL (140-440); RBC 4.12 X 10*6/uL (4.10-5.20); RDW 17.4 % (11.5-14.5)
[2023-04-10 08:47] LABS: BUN/Creat Ratio 29.42 Ratio (12.00-20.00); Blood Urea Nitrogen 35.3 mg/dL (9.0-27.0); Carbon Dioxide 23.1 mmol/L (21.6-31.8); Chloride 98 mmol/L (96-109); Glucose 177 mg/dL (70-110); Potassium 4.2 mmol/L (3.5-5.5); Sodium 134 mmol/L (135-145)
[2023-04-10 08:48] LABS: Calcium 9.4 mg/dL (8.7-10.3)
[2023-04-10] MEDS ORDERED: FUROSEMIDE 20 MG TAB PO SCH (09:00)
[2023-04-10] MEDS ORDERED: FAMOTIDINE 20 MG/2 ML VIAL IV SCH (09:00)
[2023-04-10] MEDS: methylPREDNISolone SOD SUCCI 40 MG/ML 1 ML VIAL IV SCH ×2 (10:03→17:27)
[2023-04-10] MEDS: METOPROLOL SUCCINATE (ER) 100 MG TAB.ER.24H PO SCH (10:04)
[2023-04-10] MEDS: APIXABAN 5 MG TAB PO SCH ×2 (10:04→20:37)
[2023-04-10] MEDS: CHOLECALCIFEROL 25 MCG (1000 IU) TABLET PO SCH (10:04)
[2023-04-10] MEDS: ASPIRIN 81 MG PO SCH (10:04)
[2023-04-10] MEDS: allopurinoL 100 MG TAB PO SCH (10:04)
[2023-04-10] MEDS: guaiFENesin 600 MG TABLET.ER PO SCH ×2 (10:04→20:38)
[2023-04-10] MEDS: FUROSEMIDE 10 MG/ML 4 ML VIAL IV SCH ×2 (10:11→20:38)
--- NOTE | 2023-04-10 10:15 | P.CRDCN ---
History of Present Illness History of present illness: HISTORY OF PRESENT ILLNESS: This is a 77-year-old female with a past medical history significant for biventricular pacemaker implantation, permanent atrial fibrillation, coronary artery disease with previous PCI, hypertension, hyperlipidemia, mitral regurgitation, and COPD. Patient follows in the office with Dr. Flynn. We have been asked to see the patient in consultation for congestive heart failure. Patient examined at the bedside in the emergency room. Patient states she presented to the hospital with a chief complaint of shortness of breath. She denied any chest pain or pressure. She states her shortness of breath started a couple days ago and has continued to worsen. She denied any lower extremity swelling. The patient was found to be positive for RSV. Blood pressure 126/58. DIAGNOSTICS: - EKG reveals paced rhythm - Chest xray mild pulmonary edema and hazy airspace opacities, findings may relate to underlying heart failure - Laboratory data: WBC 6.10. Hemoglobin 10.7. Platelet count 165. Sodium 134. Potassium 4.2. BUN 35. Creatinine 1.2. Procalcitonin 0.13. Troponin 0.029. proBNP 16,000 - Current home cardiac medications include Eliquis 5 mg twice a day, aspirin 81 mg daily, atorvastatin 40 mg at night, Lasix 20 mg twice a day, metoprolol succinate 100 mg daily - Most recent echocardiogram obtained in October 2021 revealing ejection fraction 55 to 60%, moderate LVH, severe pulmonary hypertension, trace aortic regurgitation, moderate mitral regurgitation, and moderate to severe tricuspid regurgitation - Cardiac catheterization history: August 2017 with patent stent to the right coronary artery. Mild nonobstructive disease involving the circumflex and LAD -Patient underwent stress testing in September 2020 revealing abnormal nuclear scan showing fixed mid anterior wall defect secondary to soft tissue attenuation REVIEW OF SYSTEMS: At the time of my exam: CONSTITUTIONAL: Denies fever or chills. HEENT: Denies blurred vision, vision changes, or eye pain. Denies hemoptysis CARDIOVASCULAR: Denies chest pain. Denies orthopnea. Denies PND. Denies palpitations RESPIRATORY: Reports shortness of breath. GASTROINTESTINAL: Denies abdominal pain. Denies nausea or vomiting. HEMATOLOGIC: Denies bleeding disorders. GENITOURINARY: Denies any blood in urine. SKIN: Denies pruitis. Denies rash. PHYSICAL EXAM: VITAL SIGNS: Reviewed. GENERAL: Well-developed in no acute distress. HEENT: Head is normocephalic. Pupils are equal, round. Sclerae anicteric. Mucous membranes of the mouth are moist. Neck supple. No JVD or thyromegaly LUNGS: Respirations even and unlabored. Lungs with bibasilar crackles HEART: Regular rate and rhythm. S1 and S2 heard. ABDOMEN: Soft. Nondistended. Nontender. EXTREMITIES: Normal range of motion. No clubbing or cyanosis. Peripheral pulses intact. No lower extremity edema NEUROLOGIC: Awake and alert. Oriented x 3. ASSESSMENT: Shortness of breath Acute RSV Acute COPD exacerbation Acute on chronic hypoxic respiratory failure, patient on oxygen outpatient Acute on chronic heart failure with preserved EF, 55 to 60% Coronary artery disease with previous stenting to the RCA Permanent atrial fibrillation History of biventricular pacemaker implantation, [employer], 2019 Hypertension Hyperlipidemia Valvular heart disease including trace AR, moderate MR, and moderate to severe TR PLAN: Obtain limited echo to assess LV function Begin IV Lasix 40 mg every 12 hours. Anticipate transition to oral dosing tomor row. Daily weights, accurate intake and output, and monitoring of kidney function Resume additional home cardiac medications Further recommendations pending patient course Nurse practitioner note has been reviewed by physician. Signing provider agrees with the documented findings, assessment, and plan of care documented by LIGHTING ADVISER as a scribe. Past Medical History Past Medical History: Atrial Fibrillation, Asthma, Coronary Artery Disease (CAD), Cancer, COPD, Eye Disorder, Hearing Disorder / Deafness, Myocardial Infarction (ND), Osteoarthritis (OA), Pneumonia, Thyroid Disorder Additional Past Medical History / Comment(s): See Dr Trimble's H&P, Gout, hiatal hernia, Macular Degeneration, Skin Cancer, degenerative disc disease, ost eoporosis. UTI 07/01/19. Last Myocardial Infarction Date:: 2011 History of Any Multi-Drug Resistant Organisms: None Reported Past Surgical History: Cardiac Ablation, Cholecystectomy, Heart Catheterization With Stent, Hysterectomy, Orthopedic Surgery, Pacemaker, Tonsillectomy Additional Past Surgical History / Comment(s): Right shoulder surgery, left wrist surgery. Thyroid Nodule removed, sylvia Cataracts, LOOP RECORDER-11/23/17; CHRIO ABLATION 03/08/18 WITH CARDIOVERSION 2nd ablatiion 2019 Past Anesthesia/Blood Transfusion Reactions: No Reported Reaction Date of Last Stent Placement:: 2011 Type of Cardiac Device: Permanent Pacemaker Device Placement Date:: 07/2019 Past Psychological History: No Psychological Hx Reported Smoking Status: Former smoker Past Alcohol Use History: None Reported Additional Past Alcohol Use History / Comment(s): started smoking at age 15(1961) and quit 2006, smoked 2ppd Past Drug Use History: None Reported - Past Family History Mother Family Medical History: Cancer, Congestive Heart Failure (CHF), Myocardial Infarction (ND), Pneumonia, Pulmonary Embolus Additional Family Medical History / Comment(s): breast CA Father Family Medical History: CVA/TIA, Myocardial Infarction (ND) Medications and Allergies Home Medications Medication Instructions Recorded Confirmed Type Albuterol Sulfate [Ventolin HFA] 2 puff INHALATION RT-QID PRN 08/11/13 04/09/23 History Vit C/E/Zn/Coppr/Lutein/Zeaxan 1 cap PO BID 03/02/15 04/09/23 History [Preservision Areds 2 Softgel] Atorvastatin [Lipitor] 40 mg PO HS #30 tab 03/04/15 04/09/23 Rx Levothyroxine Sodium [Synthroid] 75 mcg PO DIRECTED 10/22/18 04/09/23 History allopurinoL [Zyloprim] 100 mg PO DAILY 10/22/18 04/09/23 History Fluticasone/Umeclidin/Vilanter 1 puff INHALATION RT-DAILY 07/01/19 04/09/23 History [Treleroseline Ellipta 100-62.5-25] Aspirin [[place] Aspirin EC] 81 mg PO DAILY 08/09/19 04/09/23 History Cholecalciferol [Vitamin D3 (25 25 mcg PO DAILY 05/23/20 04/09/23 History Mcg = 1000 Iu)] Ipratropium-Albuterol Nebulize 3 ml INHALATION RT-QID 10/28/21 04/09/23 History [Duoneb 0.5 mg-3 mg/3 ml Soln] Apixaban [Eliquis] 5 mg PO BID 04/09/23 04/09/23 History Furosemide [Lasix] 20 mg PO BID@0900,1500 04/09/23 04/09/23 History Metoprolol Succinate (ER) [Toprol 100 mg PO DAILY 04/09/23 04/09/23 History Xl] Sodium Bicarbonate 325 mg PO BID 04/09/23 04/09/23 History calcitrioL 0.25 mcg PO WE 04/09/23 04/09/23 History guaiFENesin [Mucinex] 600 mg PO BID 04/09/23 04/09/23 History Allergies Allergy/AdvReac Type Severity Reaction Status Date / Time codeine Allergy Itching Verified 04/09/23 16:47 Physical Exam Vitals: Vital Signs Temp Pulse Pulse Resp BP BP Pulse Ox 04/10/23 03:34 68 04/10/23 03:27 65 04/10/23 02:00 97.8 F 64 20 126/58 96 04/09/23 23:51 78 04/09/23 23:42 76 04/09/23 21:59 97.7 F 66 20 139/91 91 L 04/09/23 20:01 64 04/09/23 19:52 75 04/09/23 16:52 65 18 121/71 93 L 04/09/23 14:49 98.0 F 79 18 125/56 92 L Intake and Output 04/09/23 04/10/23 04/10/23 22:59 06:59 14:59 Intake Total 200 Balance 200 Intake: Oral 200 Other: # Voids 3 Weight 73.028 kg Results 04/10/23 05:45 04/10/23 05:45 Cardiac Enzymes 04/09/23 04/09/23 Range/Units 15:05 15:05 AST 29 (14-36) U/L Troponin I 0.029 (0.000-0.034) ng/mL Coagulation 04/09/23 Range/Units 15:05 PT 13.2 H (10.0-12.5) sec APTT 27.8 (22.0-30.0) sec CBC 04/09/23 Range/Units 15:05 WBC 10.1 (3.8-10.6) k/uL RBC 4.30 (3.80-5.40) m/uL Hgb 11.7 (11.4-16.0) gm/dL Hct 36.8 (34.0-46.0) % Plt Count 166 (150-450) k/uL Comprehensive Metabolic Panel 04/09/23 Range/Units 15:05 Sodium 134 L (137-145) mmol/L Potassium 3.8 (3.5-5.1) mmol/L Chloride 104 (98-107) mmol/L Carbon Dioxide 21 L (22-30) mmol/L BUN 26 H (7-17) mg/dL Creatinine 1.04 (0.52-1.04) mg/dL Glucose 118 H (74-99) mg/dL Calcium 9.2 (8.4-10.2) mg/dL AST 29 (14-36) U/L ALT 12 (4-34) U/L Alkaline Phosphatase 121 (38-126) U/L Total Protein 7.6 (6.3-8.2) g/dL Albumin 3.9 (3.5-5.0) g/dL Current Medications Generic Name Dose Route Start Last Admin Trade Name Freq PRN Reason Stop Dose Admin Albuterol/Ipratropium 3 ml 04/09/23 20:00 04/10/23 03:26 Ipratropium-Albuterol 3 Ml Neb INHALATION 3 ml RT-Q4H MILAN Administration Allopurinol 100 mg 04/10/23 09:00 Allopurinol 100 Mg Tab PO DAILY MILAN Apixaban 5 mg 04/09/23 21:30 04/09/23 21:36 Apixaban 5 Mg Tab PO 5 mg BID MILAN Administration Protocol Aspirin 81 mg 04/10/23 09:00 Aspirin 81 Mg PO DAILY [facility] Atorvastatin Calcium 40 mg 04/10/23 21:00 Atorvastatin 40 Mg Tab PO HS [facility] Azithromycin 250 mg 04/11/23 09:00 Azithromycin 250 Mg Tab PO 04/14/23 09:01 DAILY [facility] Protocol Budesonide/Formoterol Fumarate 2 puff 04/10/23 08:00 Symbicort 160-4.5 Mcg Inhaler INHALATION RT-BID [facility] Calcitriol 0.25 mcg 04/12/23 09:00 Calcitriol 0.25 Mcg Cap PO WE [facility] Cholecalciferol 25 mcg 04/10/23 09:00 Cholecalciferol 25 Mcg (1000 Iu) Tablet PO DAILY [facility] Famotidine 20 mg 04/10/23 09:00 Famotidine 20 Mg/2 Ml Vial IV Q12HR [facility] Furosemide 20 mg 04/10/23 09:00 Furosemide 20 Mg Tab PO BID@0900,1600 [facility] Guaifenesin 600 mg 04/10/23 09:00 Guaifenesin 600 Mg Tablet.Er PO BID [facility] Levothyroxine Sodium 75 mcg 04/10/23 09:00 Levothyroxine 75 Mcg Tab PO DIRECTED [facility] Methylprednisolone Sodium Succinate 40 mg 04/10/23 08:00 Methylprednisolone Sod Succi 40 Mg/Ml 1 Ml Vial IV Q8HR [facility] Metoprolol Succinate 100 mg 04/10/23 09:00 Metoprolol Succinate (Er) 100 Mg Tab.Er.24h PO DAILY [facility] Naloxone HCl 0.2 mg 04/09/23 16:37 Naloxone 0.4 Mg/Ml 1 Ml Vial IV Q2M PRN Opioid Reversal Intake and Output 04/09/23 04/10/23 04/10/23 22:59 06:59 14:59 Intake Total 200 Balance 200 Intake: Oral 200 Other: # Voids 3 Weight 73.028 kg 04/09/23 15:05 04/09/23 15:05
[2023-04-10] MEDS: LEVOTHYROXINE 75 MCG TAB PO SCH (12:39)
[2023-04-10] MEDS: ACETAMINOPHEN TAB 325 MG TAB PO PRN ×2 (12:40→18:33)
[2023-04-10] MEDS: BENZOCAINE/MENTHOL LOZENG 1 EACH LOZENGE MUCOUS MEM PRN ×3 (12:41→23:50)
--- NOTE | 2023-04-10 13:43 | CA ---
Transthoracic Echo Report Name: Harmony Arias Age: 77 Gender: F : 1945 Exam Date: 04/10/2023 09:36 Exam Location: [facility] Ht (in): 58 Wt (lb): 161 Ordering Physician: Abbi Ramirez Attending/Referring Phys: [id number], James Tool Dresser Procedure CPT: Indications: EF, + RSV Cardiac Hx: Pacemaker Technical Quality: Good Contrast 1: Total Dose (mL): Contrast 2: Total Dose (mL): MEASUREMENTS (Male / Female) Normal Values 2D ECHO LV Diastolic Diameter PLAX 4.9 cm 4.2 - 5.9 / 3.9 - 5.3 cm LV Systolic Diameter PLAX 2.6 cm IVS Diastolic Thickness 1.0 cm 0.6 - 1.0 / 0.6 - 0.9 cm LVPW Diastolic Thickness 1.0 cm 0.6 - 1.0 / 0.6 - 0.9 cm LV Relative Wall Thickness 0.4 RV Internal Dim ED PLAX 3.8 cm LA Systolic Diameter LX 4.3 cm 3.0 - 4.0 / 2.7 - 3.8 cm LA Volume 99.2 cm??? 18 - 58 / 22 - 52 cm??? LA Volume Index 56.2 cm???/m??? 16 - 28 cm???/m??? DOPPLER AV Peak Velocity 189.2 cm/s AV Peak Gradient 14.3 mmHg AV Mean Velocity 136.2 cm/s AV Mean Gradient 8.1 mmHg AV Velocity Time Integral 37.8 cm MV Peak Velocity 214.4 cm/s MV Peak Gradient 18.4 mmHg MV Mean Velocity 76.3 cm/s MV Mean Gradient 3.4 mmHg MV Velocity Time Integral 49.4 cm MV Area PHT 3.0 cm??? MR Peak Velocity 435.0 cm/s MR Peak Gradient 75.7 mmHg Mitral E Point Velocity 107.7 cm/s Mitral A Point Velocity 44.1 cm/s Mitral E to A Ratio 2.4 MV Deceleration Time 253.9 ms TR Peak Velocity 415.8 cm/s TR Peak Gradient 69.1 mmHg Right Ventricular Systolic Press 74.1 mmHg FINDINGS Left Ventricle Left ventricular ejection fraction is estimated at 60-65 %. Left ventricular cavity size normal. Left ventricular wall thickness normal. Right Ventricle Mild right ventricular dilatation. Severe pulmonary hypertension. Right ventricular systolic pressure estimated at 74 mm hg. Right Atrium Normal right atrial size. Left Atrium Severe LA dilatation. Mitral Valve Mitral valve thickened. Moderate mitral annular calcification. Moderate mitral regurgitation. Mild MV stenosis with mean gradient of 3 mmhg Aortic Valve Trileaflet aortic valve. Aortic valve sclerosis. Small gradient accross AOV Tricuspid Valve Structurally normal tricuspid valve. Severe tricuspid regurgitation. Pulmonic Valve Structurally normal pulmonic valve. Trace to mild pulmonic regurgitation. Pericardium No pericardial effusion. Aorta Normal size aortic root and proximal ascending aorta. CONCLUSIONS Left ventricular ejection fraction is estimated at 60-65 %. Severe pulmonary hypertension. Right ventricular systolic pressure estimated at 74 mm hg. Severe LA dilatation. Moderate mitral regurgitation. Calcific mitral valve PPM wire in RV Previewed by: Dr Dann Whittaker (Electronically Signed) Final Date: 10 April 2023 13:42
[2023-04-10] MEDS: ATORVASTATIN 40 MG TAB PO SCH (20:38)
[2023-04-11] MEDS: methylPREDNISolone SOD SUCCI 40 MG/ML 1 ML VIAL IV SCH ×2 (00:26→08:12)
[2023-04-11] MEDS: IPRATROPIUM-ALBUTEROL 3 ML NEB INHALATION SCH ×5 (03:39→21:49)
[2023-04-11] MEDS: LEVOTHYROXINE 75 MCG TAB PO SCH (05:35)
[2023-04-11] MEDS: BENZOCAINE/MENTHOL LOZENG 1 EACH LOZENGE MUCOUS MEM PRN ×3 (05:57→21:10)
[2023-04-11] MEDS: SYMBICORT 160-4.5 MCG INHALER INHALATION SCH ×2 (08:30→21:49)
[2023-04-11 08:57] LABS: Basophils # (A) 0.01 X 10*3/uL (0.00-0.10); Basophils % (A) 0.1 %; Eosinophils # (A) 0 X 10*3/uL (0.04-0.35); Eosinophils % (A) 0 %; HCT 39.3 % (37.2-46.3); HGB 11.8 g/dL (12.0-15.0); Lymphocytes # (A) 0.77 X 10*3/uL (0.90-5.00); Lymphocytes % (A) 4.1 %; MCH 25.9 pg (27.0-32.0); MCV 86.2 FL (80.0-97.0); Mean Platelet Volume 10.6 FL (9.5-12.2); Monocytes # (A) 0.82 X 10*3/uL (0.20-1.00); Monocytes % (A) 4.4 %; NRBC Per 100 WBC 0 X 10*3/uL (0.00-0.01); Neutrophils % (A) 90.6 %; Platelet Count 214 X 10*3/uL (140-440); RBC 4.56 X 10*6/uL (4.10-5.20); RDW 17.3 % (11.5-14.5); WBC 18.64 X 10*3/uL (4.50-10.00)
[2023-04-11] MEDS ORDERED: FAMOTIDINE 20 MG/2 ML VIAL IV SCH (09:00)
[2023-04-11] MEDS: guaiFENesin 600 MG TABLET.ER PO SCH ×2 (09:03→20:37)
[2023-04-11] MEDS: APIXABAN 5 MG TAB PO SCH ×2 (09:03→20:37)
[2023-04-11] MEDS: ASPIRIN 81 MG PO SCH (09:04)
[2023-04-11] MEDS: CHOLECALCIFEROL 25 MCG (1000 IU) TABLET PO SCH (09:04)
[2023-04-11] MEDS: AZITHROMYCIN 250 MG TAB PO SCH (09:04)
[2023-04-11] MEDS: allopurinoL 100 MG TAB PO SCH (09:04)
[2023-04-11] MEDS ORDERED: FUROSEMIDE 40 MG TAB PO SCH (09:13)
[2023-04-11] MEDS: FUROSEMIDE 10 MG/ML 4 ML VIAL IV SCH (09:23)
[2023-04-11 09:34] LABS: Blood Urea Nitrogen 48.9 mg/dL (9.0-27.0); Calcium 9.8 mg/dL (8.7-10.3); Carbon Dioxide 20.3 mmol/L (21.6-31.8); Chloride 94 mmol/L (96-109); Glucose 142 mg/dL (70-110); Potassium 4.1 mmol/L (3.5-5.5); Sodium 130 mmol/L (135-145)
[2023-04-11] MEDS: METOPROLOL SUCCINATE (ER) 100 MG TAB.ER.24H PO SCH (10:07)
--- NOTE | 2023-04-11 10:24 | P.PN ---
Subjective This is a pleasant 86 years old male with past medical history of coronary artery disease status post CABG He admitted to the hospital for acute systolic CHF about one month ago with ejection fraction 40-45% Since that discharge patient continued to have cough however over the last 3-4 days he started having dyspnea and chest pain, he says he cannot breathe especially if he lies down And his chest pain central nonradiating about 8/10 in severity, gradually getting worse He denies GI or urinary or neurological symptoms No nausea vomiting or diarrhea. Patient denies smoking alcohol or illicit drugs Patient is hemodynamically stable Labs reviewed showing mild anemia with hemoglobin 9.2, platelet count 132, rest of BMP, liver enzymes and are R were unremarkable Is elevated 2.3, 1.7 and 1.8 ProBNP is elevated 5440. Influenza A and type B, RSV, SARS (coronavirus) are and detected Chest x-ray: No acute process EKG showing sinus rhythm at [address]-T changes and QTC 424. 04/11/2023 Patient breathing is improving although she remains mildly tachypneic Her oxygen requirement brought down to 3 L from 4 and saturation 95% She feels jittery from IV steroids and was switched to prednisone 30 mg daily by pulmonary team Creatinine went up 1.2 up to 1.5 today and IV Lasix 40 g twice daily switched to oral dose today per recommendation of braille and talking books clerk Patient menstrual Zithromax. Throatconsult on mildly elevated at 0.13. She is also on home dose of Eliquis 5 mg Possible discharge in 24-48 hours if she keeps improving Objective - Vital Signs Vital signs: Vital Signs Temp 97.4 F L 04/11/23 08:07 Pulse 80 04/11/23 08:46 Resp 18 04/11/23 08:07 BP 151/72 04/11/23 08:07 Pulse Ox 95 04/11/23 08:30 FiO2 Intake & Output 04/10/23 04/11/23 04/11/23 18:59 06:59 18:59 Intake Total 200 Output Total 400 Balance -200 Intake: Oral 200 Output: Urine 400 Other: Voiding Method Bedside Commode # Voids 3 - Exam GENERAL: The patient is alert and oriented x3, not in any acute distress. Well developed, well nourished. HEENT: Pupils are round and equally reacting to light. EOMI. No scleral icterus. No conjunctival pallor. Normocephalic, atraumatic. No pharyngeal erythema. No thyromegaly. CARDIOVASCULAR: S1 and S2 present. No murmurs, rubs, or gallops. -PULMONARY: Chest is clear to auscultation , bilateral expiratory wheezing , no crackles. ABDOMEN: Soft, nontender, nondistended, normoactive bowel sounds. No palpable organomegaly. MUSCULOSKELETAL: No joint swelling or deformity. EXTREMITIES: No cyanosis, clubbing, or pedal edema. NEUROLOGICAL: Gross neurological examination did not reveal any focal deficits. SKIN: No rashes. no petechiae. - Labs CBC & Chem 7: 04/11/23 06:00 04/11/23 06:04 Labs: Abnormal Lab Results - Last 24 Hours (Table) 04/11/23 04/11/23 Range/Units 06:00 06:04 WBC 18.64 H (4.50-10.00) X 10*3/uL Hgb 11.8 L (12.0-15.0) g/dL MCH 25.9 L (27.0-32.0) pg MCHC 30.0 L (32.0-37.0) g/dL RDW 17.3 H (11.5-14.5) % Immature Gran # 0.14 H (0.00-0.04) X 10*3/uL Neutrophils # 16.90 H (1.80-7.70) X 10*3/uL Lymphocytes # 0.77 L (0.90-5.00) X 10*3/uL Eosinophils # 0 L (0.04-0.35) X 10*3/uL Sodium 130 L (135-145) mmol/L Chloride 94 L (96-109) mmol/L Carbon Dioxide 20.3 L (21.6-31.8) mmol/L Anion Gap 15.70 H (4.00-12.00) mmol/L BUN 48.9 H (9.0-27.0) mg/dL Est GFR (CKD-EPI) 36 L (>=60) BUN/Creatinine Ratio 32.60 H (12.00-20.00) Ratio Glucose 142 H (70-110) mg/dL Assessment and Plan Assessment: Acute asthma, COPD exacerbation Acute on chronic hypoxic respiratory failure Hearing disorder Chronic atrial fibrillation with RVR, on a was at home Coronary artery disease status post stent Hypothyroidism Plan: Continue with IV Solu-Medrol 40 mg, increase it to 60 mg Continue with Zithromax Sent sputum culture Continue with Eliquis home dose Continue with oral Lasix 20 mg twice daily and metoprolol 100 mg Continue with aspirin Pulmonary consult Labs and medication were reviewed.. Continue same treatment. Continue with symptomatic treatment. Resume home medication. Monitor labs and vitals. DVT and GI prophylaxis. Further recommendations as per clinical course of the patient DVT prophylaxis: Eliquis GI Prophylaxis: Pepcid PT/OT: Pending Prognosis is guarded
--- NOTE | 2023-04-11 10:41 | P.PN ---
Subjective HISTORY OF PRESENT ILLNESS: This is a 77-year-old female with a past medical history significant for biventricular pacemaker implantation, permanent atrial fibrillation, coronary artery disease with previous PCI, hypertension, hyperlipidemia, mitral regurgitation, and COPD. Patient follows in the office with Dr. Flynn. We have been asked to see the patient in consultation for congestive heart failure. Patient examined at the bedside in the emergency room. Patient states she presented to the hospital with a chief complaint of shortness of breath. She denied any chest pain or pressure. She states her shortness of breath started a couple days ago and has continued to worsen. She denied any lower extremity swelling. The patient was found to be positive for RSV. Blood pressure 126/58. DIAGNOSTICS: - EKG reveals paced rhythm - Chest xray mild pulmonary edema and hazy airspace opacities, findings may relate to underlying heart failure - Laboratory data: WBC 6.10. Hemoglobin 10.7. Platelet count 165. Sodium 134. Potassium 4.2. BUN 35. Creatinine 1.2. Procalcitonin 0.13. Troponin 0.029. proBNP 16,000 - Current home cardiac medications include Eliquis 5 mg twice a day, aspirin 81 mg daily, atorvastatin 40 mg at night, Lasix 20 mg twice a day, metoprolol succinate 100 mg daily - Most recent echocardiogram obtained in October 2021 revealing ejection fraction 55 to 60%, moderate LVH, severe pulmonary hypertension, trace aortic regurgitation, moderate mitral regurgitation, and moderate to severe tricuspid regurgitation - Cardiac catheterization history: August 2017 with patent stent to the right coronary artery. Mild nonobstructive disease involving the circumflex and LAD -Patient underwent stress testing in September 2020 revealing abnormal nuclear scan showing fixed mid anterior wall defect secondary to soft tissue attenuation April 11, 2023 Patient examined this morning. She is sitting on the side of the bed. She currently denies chest pain or pressure. She currently denies shortness of breath. She remains on IV Lasix. Echocardiogram completed revealing ejection fraction 60 to 65%, severe pulmonary hypertension, moderate mitral regurgitation. PHYSICAL EXAM: VITAL SIGNS: Reviewed. GENERAL: Well-developed in no acute distress. HEENT: Head is normocephalic. Pupils are equal, round. Sclerae anicteric. Mucous membranes of the mouth are moist. Neck supple. No JVD or thyromegaly LUNGS: Respirations even and unlabored. Lungs with decreased air exchange HEART: Regular rate and rhythm. S1 and S2 heard. ABDOMEN: Soft. Nondistended. Nontender. EXTREMITIES: Normal range of motion. No clubbing or cyanosis. Peripheral pulses intact. 1+ pitting lower extremity edema NEUROLOGIC: Awake and alert. Oriented x 3. ASSESSMENT: Shortness of breath Acute RSV Acute COPD exacerbation Acute on chronic hypoxic respiratory failure, patient on oxygen outpatient Acute on chronic heart failure with preserved EF, 55 to 60% Coronary artery disease with previous stenting to the RCA Permanent atrial fibrillation History of biventricular pacemaker implantation, [employer], 2019 Hypertension Hyperlipidemia Valvular heart disease including trace AR, moderate MR, and moderate to severe TR PLAN: Discontinue IV Lasix. Begin oral Lasix 40 mg twice a day Resume additional cardiac medications Patient is currently stable from a cardiac standpoint She is to follow-up in the office with Dr. Flynn postdischarge Nurse practitioner note has been reviewed by physician. Signing provider agrees with the documented findings, assessment, and plan of care documented by LEATHER STRETCHER as a scribe. Objective - Vital Signs Vital signs: Vital Signs Temp 97.4 F L 04/11/23 08:07 Pulse 80 04/11/23 08:46 Resp 18 04/11/23 08:07 BP 151/72 04/11/23 08:07 Pulse Ox 95 04/11/23 08:30 FiO2 Intake & Output 04/10/23 04/11/23 04/11/23 18:59 06:59 18:59 Intake Total 200 Output Total 400 Balance -200 Intake: Oral 200 Output: Urine 400 Other: Voiding Method Bedside Commode # Voids 3 - Labs CBC & Chem 7: 04/11/23 06:00 04/11/23 06:04 Labs: Abnormal Lab Results - Last 24 Hours (Table) 04/11/23 04/11/23 Range/Units 06:00 06:04 WBC 18.64 H (4.50-10.00) X 10*3/uL Hgb 11.8 L (12.0-15.0) g/dL MCH 25.9 L (27.0-32.0) pg MCHC 30.0 L (32.0-37.0) g/dL RDW 17.3 H (11.5-14.5) % Immature Gran # 0.14 H (0.00-0.04) X 10*3/uL Neutrophils # 16.90 H (1.80-7.70) X 10*3/uL Lymphocytes # 0.77 L (0.90-5.00) X 10*3/uL Eosinophils # 0 L (0.04-0.35) X 10*3/uL Sodium 130 L (135-145) mmol/L Chloride 94 L (96-109) mmol/L Carbon Dioxide 20.3 L (21.6-31.8) mmol/L Anion Gap 15.70 H (4.00-12.00) mmol/L BUN 48.9 H (9.0-27.0) mg/dL Est GFR (CKD-EPI) 36 L (>=60) BUN/Creatinine Ratio 32.60 H (12.00-20.00) Ratio Glucose 142 H (70-110) mg/dL
[2023-04-11] MEDS: ACETAMINOPHEN TAB 325 MG TAB PO PRN ×2 (13:05→21:09)
--- NOTE | 2023-04-11 14:03 | P.PN ---
Subjective Progress Note Date: 04/11/23 I am seeing this patient in new consultation today April 10, 2023 in the emergency room after she presented yesterday afternoon complaining of worsening shortness of breath and URI-like symptoms over the last 2 days. She did test positive for RSV on arrival. Patient is a 77-year-old white female with past medical history significant for moderate COPD, ILD, chronic hypoxemic respiratory failure, mediastinal lymphadenopathy, heart failure, atrial fibrillation, hypothyroidism, coronary artery disease, among other things. Her primary care provider is Dr. Elizabeth. Patient does follow with Dr. Antoine in the pulmonary office. As stated prior, the patient has been experiencing worsening shortness of breath, especially with exertion and at night. She does chronically utilize 2 L nasal cannula oxygen at bedtime. She has required increased oxygen demands, and has been using 3 L home O2 03/10. She normally controls her COPD with a combination of Trelegy inhaler, DuoNebs, and as needed Ventolin HFA. These have not provided any relief. She quit smoking in 2006. She has been complaining of a persistent cough with green sputum production. Denies any fevers, chest pain, hemoptysis. She does have some mild nonpitting lower extremity swelling. States that her kidney doctor reduced her Lasix dose from 40 mg twice daily to 20 mg twice daily 1 to 2 months ago. She denies any chest pain, heart palpitations, lightheadedness, syncopal events. Patient is currently lying in bed, on 3 L/min nasal cannula, in no acute distress. Chest x-ray on arrival showed mild pulmonary edema and cephalization, possibly relating to underlying heart failure. No obvious focal infiltrates or evidence of pneumonia. CBC on arrival was unremarkable. No leukocytosis. CMP has sodium 134, potassium 3.8, chloride 104, serum bicarb 21, BUN 26, creatinine 1.04, glucose 118. LFTs not elevated. Troponin 0.029. NT proBNP was significantly elevated at 16,000. RSV PCR was positive. Negative for influenza and COVID. She is currently afebrile. Vital signs are stable. The patient is seen today April 11, 2023 in follow-up on the regular medical floor. She is currently sitting up at the bedside. Awake and alert and no acute distress. She continues with a dry nonproductive cough. Maintaining good O2 saturations in the mid 90s on 3 L/min per nasal cannula. Echocardiogram reveals preserved left ventricular systolic function with ejection fraction of 60 to 65%. There is severe pulmonary hypertension with an RVSP of 74 mmHg. White count 18.6. Hemoglobin 11.8. Platelets 214. Sodium 130. Potassium 4.1. Bicarb 20. BUN 49. Creatinine 1.5. Glucose 142. Procalcitonin was 0.13. DuoNeb inhalations, Symbicort, prednisone. Anticoagulated with Eliquis. Empiric antibiotics in the form of azithromycin. Objective - Vital Signs Vital signs: Vital Signs Temp 97.4 F L 04/11/23 08:07 Pulse 76 04/11/23 12:08 Resp 18 04/11/23 08:07 BP 151/72 04/11/23 08:07 Pulse Ox 95 04/11/23 08:30 FiO2 Intake & Output 04/10/23 04/11/23 04/11/23 18:59 06:59 18:59 Intake Total 200 Output Total 400 Balance -200 Intake: Oral 200 Output: Urine 400 Other: Voiding Method Bedside Commode # Voids 3 - Exam GENERAL EXAM: Alert, pleasant 77-year-old female, comfortable in no apparent distress. HEAD: Normocephalic and atraumatic EYES: Normal reaction of pupils, equal size. NOSE: Clear with pink turbinates. THROAT: No erythema or exudates. NECK: No masses, no JVD. CHEST: No chest wall deformity. LUNGS: Equal air entry with expiratory wheezes heard throughout. On 3 L/min nasal cannula. No conversational dyspnea. CVS: S1 and S2 normal with no audible murmur, regular rhythm. No extra heart sounds ABDOMEN: No hepatosplenomegaly, active bowel sounds, no guarding or rigidity. SPINE: No scoliosis or deformity SKIN: No rashes CENTRAL NERVOUS SYSTEM: No focal deficits, tone is normal in all 4 extremities. EXTREMITIES: There is bilateral lower extremity mild nonpitting edema. No clubbing, or cyanosis. Peripheral pulses are intact. - Labs CBC & Chem 7: 04/11/23 06:00 04/11/23 06:04 Labs: Abnormal Lab Results - Last 24 Hours (Table) 04/11/23 04/11/23 Range/Units 06:00 06:04 WBC 18.64 H (4.50-10.00) X 10*3/uL Hgb 11.8 L (12.0-15.0) g/dL MCH 25.9 L (27.0-32.0) pg MCHC 30.0 L (32.0-37.0) g/dL RDW 17.3 H (11.5-14.5) % Immature Gran # 0.14 H (0.00-0.04) X 10*3/uL Neutrophils # 16.90 H (1.80-7.70) X 10*3/uL Lymphocytes # 0.77 L (0.90-5.00) X 10*3/uL Eosinophils # 0 L (0.04-0.35) X 10*3/uL Sodium 130 L (135-145) mmol/L Chloride 94 L (96-109) mmol/L Carbon Dioxide 20.3 L (21.6-31.8) mmol/L Anion Gap 15.70 H (4.00-12.00) mmol/L BUN 48.9 H (9.0-27.0) mg/dL Est GFR (CKD-EPI) 36 L (>=60) BUN/Creatinine Ratio 32.60 H (12.00-20.00) Ratio Glucose 142 H (70-110) mg/dL Assessment and Plan Assessment: Acute on chronic hypoxemic respiratory failure, currently on 3 L/min nasal cannula, multifactorial secondary to a combination of acute exacerbation of COPD, acute RSV tracheobronchitis, and acute exacerbation of chronic diastolic congestive heart failure. Chest x-ray on arrival showed mild pulmonary edema and cephalization, possibly relating to underlying heart failure. No obvious focal infiltrates or evidence of pneumonia Acute RSV infection Moderate chronic obstructive pulmonary disease Chronic hypoxemic respiratory failure, normally maintained on 2 L at bedtime, secondary to above Moderate pulmonary hypertension secondary to above History of right paratracheal lymphadenopathy, ametabolic on most recent PET scan, being followed up on outpatient basis Coronary artery disease, with history of previous PCI/stent History of sick sinus syndrome and chronic atrial fibrillation, status post permanent biventricular pacemaker implantation, and chronically anticoagulated on Eliquis Hypothyroidism Obesity, with a BMI 33.6 kg/m Remote ex smoker Plan: The patient was seen and evaluated Echocardiogram, labs and medications reviewed Continue the current treatment plan Decrease steroids due to insomnia Increase her activity as tolerated We will continue to follow I have personally seen and examined the patient, performed the documentation and the assessment and plan as written. Number of minutes spent on the visit: 10.
[2023-04-11] MEDS: FUROSEMIDE 40 MG TAB PO SCH (16:03)
[2023-04-11] MEDS ORDERED: ALBUTEROL NEBULIZED 2.5 MG/3 ML INHALATION PRN (16:18)
[2023-04-11] MEDS: ATORVASTATIN 40 MG TAB PO SCH (20:37)
[2023-04-12] MEDS: IPRATROPIUM-ALBUTEROL 3 ML NEB INHALATION SCH ×6 (00:10→21:40)
[2023-04-12] MEDS: LEVOTHYROXINE 75 MCG TAB PO SCH (05:55)
[2023-04-12] MEDS: SYMBICORT 160-4.5 MCG INHALER INHALATION SCH ×2 (09:14→21:40)
[2023-04-12] MEDS: APIXABAN 5 MG TAB PO SCH ×2 (09:25→22:29)
[2023-04-12] MEDS: allopurinoL 100 MG TAB PO SCH (09:25)
[2023-04-12] MEDS: predniSONE 10 MG TAB PO SCH (09:25)
[2023-04-12] MEDS: FUROSEMIDE 40 MG TAB PO SCH ×2 (09:25→16:59)
[2023-04-12] MEDS: guaiFENesin 600 MG TABLET.ER PO SCH ×2 (09:26→22:30)
[2023-04-12] MEDS: AZITHROMYCIN 250 MG TAB PO SCH (09:26)
[2023-04-12] MEDS: FAMOTIDINE 20 MG TAB PO SCH (09:26)
[2023-04-12] MEDS: METOPROLOL SUCCINATE (ER) 100 MG TAB.ER.24H PO SCH (09:26)
[2023-04-12] MEDS: ASPIRIN 81 MG PO SCH (09:26)
[2023-04-12] MEDS: CHOLECALCIFEROL 25 MCG (1000 IU) TABLET PO SCH (09:26)
[2023-04-12] MEDS: ACETAMINOPHEN TAB 325 MG TAB PO PRN (09:28)
[2023-04-12] MEDS: BENZOCAINE/MENTHOL LOZENG 1 EACH LOZENGE MUCOUS MEM PRN (09:30)
--- NOTE | 2023-04-12 13:51 | P.PN ---
Subjective Progress Note Date: 04/12/23 I am seeing this patient in new consultation today April 10, 2023 in the emergency room after she presented yesterday afternoon complaining of worsening shortness of breath and URI-like symptoms over the last 2 days. She did test positive for RSV on arrival. Patient is a 77-year-old white female with past medical history significant for moderate COPD, ILD, chronic hypoxemic respiratory failure, mediastinal lymphadenopathy, heart failure, atrial fibrillation, hypothyroidism, coronary artery disease, among other things. Her primary care provider is Dr. Elizabeth. Patient does follow with Dr. Antoine in the pulmonary office. As stated prior, the patient has been experiencing worsening shortness of breath, especially with exertion and at night. She does chronically utilize 2 L nasal cannula oxygen at bedtime. She has required increased oxygen demands, and has been using 3 L home O2 03/10. She normally controls her COPD with a combination of Trelegy inhaler, DuoNebs, and as needed Ventolin HFA. These have not provided any relief. She quit smoking in 2006. She has been complaining of a persistent cough with green sputum production. Denies any fevers, chest pain, hemoptysis. She does have some mild nonpitting lower extremity swelling. States that her kidney doctor reduced her Lasix dose from 40 mg twice daily to 20 mg twice daily 1 to 2 months ago. She denies any chest pain, heart palpitations, lightheadedness, syncopal events. Patient is currently lying in bed, on 3 L/min nasal cannula, in no acute distress. Chest x-ray on arrival showed mild pulmonary edema and cephalization, possibly relating to underlying heart failure. No obvious focal infiltrates or evidence of pneumonia. CBC on arrival was unremarkable. No leukocytosis. CMP has sodium 134, potassium 3.8, chloride 104, serum bicarb 21, BUN 26, creatinine 1.04, glucose 118. LFTs not elevated. Troponin 0.029. NT proBNP was significantly elevated at 16,000. RSV PCR was positive. Negative for influenza and COVID. She is currently afebrile. Vital signs are stable. The patient is seen today April 11, 2023 in follow-up on the regular medical floor. She is currently sitting up at the bedside. Awake and alert and no acute distress. She continues with a dry nonproductive cough. Maintaining good O2 saturations in the mid 90s on 3 L/min per nasal cannula. Echocardiogram reveals preserved left ventricular systolic function with ejection fraction of 60 to 65%. There is severe pulmonary hypertension with an RVSP of 74 mmHg. White count 18.6. Hemoglobin 11.8. Platelets 214. Sodium 130. Potassium 4.1. Bicarb 20. BUN 49. Creatinine 1.5. Glucose 142. Procalcitonin was 0.13. DuoNeb inhalations, Symbicort, prednisone. Anticoagulated with Eliquis. Empiric antibiotics in the form of azithromycin. The patient is seen today April 12, 2023 and follow-up on the regular medical floor. She is sitting up. Awake and alert in no acute distress. Maintaining O2 saturations in the 90s on room air. She is afebrile. Hemodynamically stable. No new labs today. Martita on DuoNeb ventilations, Symbicort, Solu- Medrol. Anticoagulated with Eliquis. Antibiotics in the form of azithromycin. Procalcitonin was 0.13. Remains on Mucinex and Cepacol lozenges. Objective - Vital Signs Vital signs: Vital Signs Temp 97.5 F L 04/12/23 07:43 Pulse 68 04/12/23 12:49 Resp 18 04/12/23 12:49 BP 109/66 04/12/23 07:43 Pulse Ox 97 04/12/23 09:14 FiO2 Intake & Output 04/11/23 04/12/23 04/12/23 18:59 06:59 18:59 Weight 74.3 kg Other: Voiding Method Bedside Commode - Exam GENERAL EXAM: Alert, pleasant 77-year-old female, seen up at the bedside, on room air, comfortable in no apparent distress. HEAD: Normocephalic and atraumatic EYES: Normal reaction of pupils, equal size. NOSE: Clear with pink turbinates. THROAT: No erythema or exudates. NECK: No masses, no JVD. CHEST: No chest wall deformity. LUNGS: Equal air entry with expiratory wheezes heard throughout. No conversational dyspnea. CVS: S1 and S2 normal with no audible murmur, regular rhythm. No extra heart sounds ABDOMEN: No hepatosplenomegaly, active bowel sounds, no guarding or rigidity. SPINE: No scoliosis or deformity SKIN: No rashes CENTRAL NERVOUS SYSTEM: No focal deficits, tone is normal in all 4 extremities. EXTREMITIES: There is bilateral lower extremity mild nonpitting edema. No clubbing, or cyanosis. Peripheral pulses are intact. - Labs CBC & Chem 7: 04/11/23 06:00 04/11/23 06:04 Assessment and Plan Assessment: Acute on chronic hypoxemic respiratory failure, currently on 3 L/min nasal cannula, multifactorial secondary to a combination of acute exacerbation of COPD, acute RSV tracheobronchitis, and acute exacerbation of chronic diastolic congestive heart failure. Chest x-ray on arrival showed mild pulmonary edema and cephalization, possibly relating to underlying heart failure. No obvious focal infiltrates or evidence of pneumonia Acute RSV infection Moderate chronic obstructive pulmonary disease Chronic hypoxemic respiratory failure, normally maintained on 2 L at bedtime, secondary to above Moderate pulmonary hypertension secondary to above History of right paratracheal lymphadenopathy, ametabolic on most recent PET scan, being followed up on outpatient basis Coronary artery disease, with history of previous PCI/stent History of sick sinus syndrome and chronic atrial fibrillation, status post permanent biventricular pacemaker implantation, and chronically anticoagulated on Eliquis Hypothyroidism Obesity, with a BMI 33.6 kg/m Remote ex smoker Plan: The patient was seen and evaluated Medications reviewed Discontinue Solu-Medrol Continue a prednisone taper Cleared for discharge from the pulmonary standpoint Follow-up in the office in 1 week I have personally seen and examined the patient, performed the documentation and the assessment and plan as written. Number of minutes spent on the visit: 10.
--- NOTE | 2023-04-12 13:58 | P.PN ---
Subjective This is a pleasant 86 years old male with past medical history of coronary artery disease status post CABG He admitted to the hospital for acute systolic CHF about one month ago with ejection fraction 40-45% Since that discharge patient continued to have cough however over the last 3-4 days he started having dyspnea and chest pain, he says he cannot breathe especially if he lies down And his chest pain central nonradiating about 8/10 in severity, gradually getting worse He denies GI or urinary or neurological symptoms No nausea vomiting or diarrhea. Patient denies smoking alcohol or illicit drugs Patient is hemodynamically stable Labs reviewed showing mild anemia with hemoglobin 9.2, platelet count 132, rest of BMP, liver enzymes and are R were unremarkable Is elevated 2.3, 1.7 and 1.8 ProBNP is elevated 5440. Influenza A and type B, RSV, SARS (coronavirus) are and detected Chest x-ray: No acute process EKG showing sinus rhythm at [address]-T changes and QTC 424. 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 Throatconsult on mildly elevated at 0.13. She is also on home dose of Eliquis 5 mg Possible discharge in 24-48 hours if she keeps improving 04/12/2023 Patient breathing is improving however she still mildly tachypneic and she complained from sore throat. Patient thinks she still needs to stay in the hospital I told the patient that she was fit for discharge by cardiology and pulmonary team and she does not want to go today and wait till tomorrow Her breathing is improving no chest pain. She requests lozenges for her sore throat which is provided She remains on Eliquis, Zithromax, prednisone 30 mg daily Patient will be discharged tomorrow morning if she remains clinically stable , improving Objective - Vital Signs Vital signs: Vital Signs Temp 97.5 F L 04/12/23 07:43 Pulse 68 04/12/23 12:49 Resp 18 04/12/23 12:49 BP 109/66 04/12/23 07:43 Pulse Ox 97 04/12/23 09:14 FiO2 Intake & Output 04/11/23 04/12/23 04/12/23 18:59 06:59 18:59 Weight 74.3 kg Other: Voiding Method Bedside Commode - Exam GENERAL: The patient is alert and oriented x3, not in any acute distress. Well developed, well nourished. HEENT: Pupils are round and equally reacting to light. EOMI. No scleral icterus. No conjunctival pallor. Normocephalic, atraumatic. No pharyngeal erythema. No thyromegaly. CARDIOVASCULAR: S1 and S2 present. No murmurs, rubs, or gallops. -PULMONARY: Chest is clear to auscultation , bilateral expiratory wheezing , no crackles. ABDOMEN: Soft, nontender, nondistended, normoactive bowel sounds. No palpable organomegaly. MUSCULOSKELETAL: No joint swelling or deformity. EXTREMITIES: No cyanosis, clubbing, or pedal edema. NEUROLOGICAL: Gross neurological examination did not reveal any focal deficits. SKIN: No rashes. no petechiae. - Labs CBC & Chem 7: 04/11/23 06:00 04/11/23 06:04 Assessment and Plan Assessment: Acute asthma, COPD exacerbation Acute on chronic hypoxic respiratory failure Hearing disorder Chronic atrial fibrillation with RVR, on a was at home Coronary artery disease status post stent Hypothyroidism Plan: Continue with IV Solu-Medrol 40 mg, increase it to 60 mg Continue with Zithromax Sent sputum culture Continue with Eliquis home dose Continue with oral Lasix 20 mg twice daily and metoprolol 100 mg Continue with aspirin Pulmonary consult Labs and medication were reviewed.. Continue same treatment. Continue with symptomatic treatment. Resume home medication. Monitor labs and vitals. DVT and GI prophylaxis. Further recommendations as per clinical course of the patient DVT prophylaxis: Eliquis GI Prophylaxis: Pepcid PT/OT: Pending Prognosis is guarded Discharge in 24-48 hours
[2023-04-12 14:53] LABS: African American GFR (CKD) 39 (>60 ml/min/1.73 sqM); Anion Gap 14 mmol/L; Blood Urea Nitrogen 63 mg/dL (7-17); Calcium 9.1 mg/dL (8.4-10.2); Carbon Dioxide 17 mmol/L (22-30); Chloride 97 mmol/L (98-107); Glucose 117 mg/dL (74-99); Non-African American GFR(CKD) 34 (>60 ml/min/1.73 sqM); Potassium 4.6 mmol/L (3.5-5.1); Sodium 128 mmol/L (137-145)
[2023-04-12] MEDS: ATORVASTATIN 40 MG TAB PO SCH (22:29)
[2023-04-13] MEDS: IPRATROPIUM-ALBUTEROL 3 ML NEB INHALATION SCH ×4 (00:48→12:40)
[2023-04-13] MEDS: LEVOTHYROXINE 75 MCG TAB PO SCH (05:34)
[2023-04-13] MEDS: BENZOCAINE/MENTHOL LOZENG 1 EACH LOZENGE MUCOUS MEM PRN (05:36)
[2023-04-13 08:56] VITALS: RESP 20
[2023-04-13] MEDS: FAMOTIDINE 20 MG TAB PO SCH (08:58)
[2023-04-13] MEDS: APIXABAN 5 MG TAB PO SCH (08:58)
[2023-04-13] MEDS: predniSONE 10 MG TAB PO SCH (08:58)
[2023-04-13] MEDS: METOPROLOL SUCCINATE (ER) 100 MG TAB.ER.24H PO SCH (08:58)
[2023-04-13] MEDS: guaiFENesin 600 MG TABLET.ER PO SCH (08:58)
[2023-04-13] MEDS: ASPIRIN 81 MG PO SCH (08:58)
[2023-04-13] MEDS: CHOLECALCIFEROL 25 MCG (1000 IU) TABLET PO SCH (08:58)
[2023-04-13] MEDS: AZITHROMYCIN 250 MG TAB PO SCH (08:58)
[2023-04-13] MEDS: allopurinoL 100 MG TAB PO SCH (08:59)
[2023-04-13] MEDS: FUROSEMIDE 40 MG TAB PO SCH (08:59)
[2023-04-13] MEDS: SYMBICORT 160-4.5 MCG INHALER INHALATION SCH (09:02)
--- NOTE | 2023-04-13 13:53 | P.PN ---
Subjective Progress Note Date: 04/13/23 Principal diagnosis: Shortness of breath. I am seeing this patient in new consultation today April 10, 2023 in the emergency room after she presented yesterday afternoon complaining of worsening shortness of breath and URI-like symptoms over the last 2 days. She did test positive for RSV on arrival. Patient is a 77-year-old white female with past medical history significant for moderate COPD, ILD, chronic hypoxemic respiratory failure, mediastinal lymphadenopathy, heart failure, atrial fibrillation, hypothyroidism, coronary artery disease, among other things. Her primary care provider is Dr. lEizabeth. Patient does follow with Dr. Antoine in the pulmonary office. As stated prior, the patient has been experiencing worsening shortness of breath, especially with exertion and at night. She does chronically utilize 2 L nasal cannula oxygen at bedtime. She has required increased oxygen demands, and has been using 3 L home O2 03/10. She normally controls her COPD with a combination of Trelegy inhaler, DuoNebs, and as needed Ventolin HFA. These have not provided any relief. She quit smoking in 2006. She has been complaining of a persistent cough with green sputum production. Denies any fevers, chest pain, hemoptysis. She does have some mild nonpitting lower extremity swelling. States that her kidney doctor reduced her Lasix dose from 40 mg twice daily to 20 mg twice daily 1 to 2 months ago. She denies any chest pain, heart palpitations, lightheadedness, syncopal events. Patient is currently lying in bed, on 3 L/min nasal cannula, in no acute distress. Chest x-ray on arrival showed mild pulmonary edema and cephalization, possibly relating to underlying heart failure. No obvious focal infiltrates or evidence of pneumonia. CBC on arrival was unremarkable. No leukocytosis. CMP has sodium 134, potassium 3.8, chloride 104, serum bicarb 21, BUN 26, creatinine 1.04, glucose 118. LFTs not elevated. Troponin 0.029. NT proBNP was significantly elevated at 16,000. RSV PCR was positive. Negative for influenza and COVID. She is currently afebrile. Vital signs are stable. The patient is seen today April 11, 2023 in follow-up on the regular medical floor. She is currently sitting up at the bedside. Awake and alert and no acute distress. She continues with a dry nonproductive cough. Maintaining good O2 saturations in the mid 90s on 3 L/min per nasal cannula. Echocardiogram reveals preserved left ventricular systolic function with ejection fraction of 60 to 65%. There is severe pulmonary hypertension with an RVSP of 74 mmHg. Wh ite count 18.6. Hemoglobin 11.8. Platelets 214. Sodium 130. Potassium 4.1. Bicarb 20. BUN 49. Creatinine 1.5. Glucose 142. Procalcitonin was 0.13. DuoNeb inhalations, Symbicort, prednisone. Anticoagulated with Eliquis. Empiric antibiotics in the form of azithromycin. The patient is seen today April 12, 2023 and follow-up on the regular medical floor. She is sitting up. Awake and alert in no acute distress. Maintaining O2 saturations in the 90s on room air. She is afebrile. Hemodynamically stable. No new labs today. Martita on DuoNeb ventilations, Symbicort, Solu- Medrol. Anticoagulated with Eliquis. Antibiotics in the form of azithromycin. Procalcitonin was 0.13. Remains on Mucinex and Cepacol lozenges. Progress note dated April 13, 2023. This is a 77-year-old female seen today in room 461. The patient is on 3 L of oxygen. No IV fluids. She is feeling better, but very slowly. She is currently on azithromycin, but she states that the only antibiotic that works for her, is ciprofloxacin, 500 mg. I switched her to ciprofloxacin, 500 mg twice a day. She denies any chest pain or chest discomfort. Her breathing is a bit improved. She denies any fever or chills. She is not coughing up any phlegm. She does have some chest congestion. Procalcitonin level was 0.13. No new labs today. The labs from April 12 have been reviewed. Objective - Vital Signs Vital signs: Vital Signs Temp 97.8 F 04/13/23 08:00 Pulse 72 04/13/23 12:53 Resp 20 04/13/23 08:00 BP 143/80 04/13/23 08:00 Pulse Ox 93 L 04/13/23 08:00 FiO2 Intake & Output 04/12/23 04/13/23 04/13/23 18:59 06:59 18:59 Weight 74.3 kg 71.5 kg Other: Voiding Method Bedside Commode Bedside Commode Bedside Commode - Exam No acute distress, oriented 3. No conversational dyspnea, use of accessory muscles, or audible wheezing. The patient is currently on 3 L of oxygen. Saturations are in the mid to high 90s. HEENT examination is grossly unremarkable. Mucous membranes are moist. No oral lesions. Neck supple. Full range of motion. No adenopathy thyromegaly or neck vein distention. Cardiovascular examination reveals regular rhythm rate. S1-S2 normal. No S3 or S4. No discernible murmur noted. Heart rate 72 bpm. Lungs reveal mild scattered rhonchi and wheezes. Breath sounds are equal. No crackles. Saturations are excellent on 3 L. Abdomen soft bowel sounds are heard. No masses or tenderness. Extremities are intact. No cyanosis clubbing or edema. Skin is without rash or lesion. Neurologic examination is brief but nonfocal. - Labs CBC & Chem 7: 04/11/23 06:00 04/12/23 14:02 Labs: Abnormal Lab Results - Last 24 Hours (Table) 04/12/23 Range/Units 14:02 Sodium 128 L (137-145) mmol/L Chloride 97 L (98-107) mmol/L Carbon Dioxide 17 L (22-30) mmol/L BUN 63 H (7-17) mg/dL Creatinine 1.47 H (0.52-1.04) mg/dL Glucose 117 H (74-99) mg/dL Microbiology - Last 24 Hours (Table) 04/11/23 15:25 Gram Stain - Preliminary Sputum Assessment and Plan Assessment: Acute on chronic hypoxemic respiratory failure, currently on 3 L/min nasal cannula, multifactorial secondary to a combination of acute exacerbation of COPD, acute RSV tracheobronchitis, and acute exacerbation of chronic diastolic congestive heart failure. Acute RSV infection. Moderate chronic obstructive pulmonary disease. Chronic hypoxemic respiratory failure, normally maintained on 2 L at bedtime. Moderate pulmonary hypertension. History of right paratracheal lymphadenopathy, ametabolic on most recent PET scan. Coronary artery disease, with history of previous PCI/stent. History of sick sinus syndrome and chronic atrial fibrillation, status post permanent biventricular pacemaker implantation. Hypothyroidism. Obesity, with a BMI 33.6 kg/m. Remote ex smoker. Plan: Plan dated April 13, 2023. The patient's azithromycin, is changed to ciprofloxacin, 500 mg twice a day. The patient states that that is the only antibiotic that works for her. Currently, she is on 3 L. Saturations are in the mid to high 90s. She is not receiving any IV fluids. Labs, x-rays, and medications are reviewed. The uche eli's prognosis remains guarded. We will continue to follow make recommendations along the way. Earlier on this admission, she was complaining about the Solu-Medrol, so we changed to a smaller dose of prednisone. We will continue to follow and make recommendations. Prognosis is guarded. Time with Patient: Less than 30
[2023-04-13 14:09] VITALS: BP 127/76; PULSE 73; TEMP 97.9
[2023-04-13] MEDS ORDERED: CIPROFLOXACIN HCL 500 MG TAB PO SCH (21:00)
--- NOTE | 2023-04-16 04:11 | P.DS ---
Providers Date of admission: 04/09/23 16:49 Attending physician: May Tanner Consults: 04/09/23 16:48 Consult Physician Urgent Consulting Provider: Gibran Rain Consult Reason/Comments: hypoxic resp failure, aechf, rsv bronchitis Do you want consulting provider notified?: Yes Primary care physician: Nirali Elizabeth Hospital Course: Diagnoses: Acute asthma, COPD exacerbation acute tracheobronchitis, RSV infection complicated by bacterial infection Acute on chronic hypoxic respiratory failure Acute on chronic diastolic CHF with ejection fraction 55-60% Moderate mitral regurgitation and moderate to severe tricuspid regurgitation Hearing disorder Chronic atrial fibrillation with RVR, on a was at home Coronary artery disease status post stent Hypothyroidism Hospital course: This is a pleasant 86 years old male with past medical history of coronary artery disease status post CABG He admitted to the hospital for acute systolic CHF about one month ago with ejection fraction 40-45% Since that discharge patient continued to have cough however over the last 3-4 days he started having dyspnea and chest pain, Was diagnosed with acute COPD/asthma exacerbation. Her mental prodromal dyspnea, no chest pain over the last few days. Wheezing was improving slowly and gradually. This has been complicated by acute tracheobronchitis and she was placed on Zithromax. Patient states that only Cipro works for her and Cipro was added by pulmonary team on the day of discharge. Patient tolerates that's well. Inserts were switched to prednisone taper. The chest also evaluated the patient, as she was diagnosed with acute diastolic CHF. Ejection fraction 55-60%. She was treated with IV Lasix which later on to oral Lasix On the day of discharge patient dyspnea improved. Patient denies chest pain. Still have some occasional coughing. No change in urine or bowel habits. No fever. No other new complaints. Patient is agreeable to go home. Patient was cleared for discharge by pulmonary service. Patient says that she has oxygen at home Problems and management plan were discussed with the patient and he verbalized understanding and acceptance Patient was found stable and can be discharged home in guarded prognosis however he needs follow-up as an outpatient. Patient was instructed to follow up with PCP Dr. Elizabeth within one week and patient agrees Patient was instructed to follow up with her assortment planner Dr. Antoine in 1-2 weeks and reactor fueling supervisor Dr. Brewer in 2 weeks Physical exam Gen: patient is a AAOx3, no distress CVS: S1-S2, RRR, no murmur Lungs: B/L CTA, no wheezing Abdomen: soft, no distention, no tenderness, positive bowel sounds Extremity: no leg edema or induration Time spent more than 35 minutes Patient Condition at Discharge: Serious Plan - Discharge Summary Discharge Rx Participant: No New Discharge Prescriptions: New Furosemide [Lasix] 40 mg PO BID@0900,1600 #60 tab Famotidine [Pepcid] 20 mg PO DAILY #15 tab predniSONE 0 mg PO DIRECTED #24 tab Ciprofloxacin HCl [Cipro] 500 mg PO BID 5 Days #10 tab Continue Vit C/E/Zn/Coppr/Lutein/Zeaxan [Preservision Areds 2 Softgel] 1 cap PO BID Atorvastatin [Lipitor] 40 mg PO HS #30 tab allopurinoL [Zyloprim] 100 mg PO DAILY Levothyroxine Sodium [Synthroid] 75 mcg PO DAILY Fluticasone/Umeclidin/Vilanter [Trelegy Ellipta 100-62.5-25] 1 puff INHALATION RT-DAILY Aspirin [Christiana Aspirin EC] 81 mg PO DAILY Cholecalciferol [Vitamin D3 (25 Mcg = 1000 Iu)] 25 mcg PO DAILY Ipratropium-Albuterol Nebulize [Duoneb 0.5 mg-3 mg/3 ml Soln] 3 ml INHALATION RT-QID Apixaban [Eliquis] 5 mg PO BID Sodium Bicarbonate 325 mg PO BID guaiFENesin [Mucinex] 600 mg PO BID Metoprolol Succinate (ER) [Toprol XL] 100 mg PO DAILY calcitrioL 0.25 mcg PO WE Albuterol Sulfate [Ventolin HFA] 2 puff INHALATION RT-QID PRN 7 Days #1 each PRN Reason: Shortness Of Breath Discontinued Furosemide [Lasix] 20 mg PO BID@0900,1500 Discharge Medication List Vit C/E/Zn/Coppr/Lutein/Zeaxan [Preservision Areds 2 Softgel] 1 cap PO BID 03/02/15 [History] Atorvastatin [Lipitor] 40 mg PO HS #30 tab 03/04/15 [Rx] Levothyroxine Sodium [Synthroid] 75 mcg PO DAILY 10/22/18 [History] allopurinoL [Zyloprim] 100 mg PO DAILY 10/22/18 [History] Fluticasone/Umeclidin/Vilanter [Trelegy Ellipta 100-62.5-25] 1 puff INHALATION RT-DAILY 07/01/19 [History] Aspirin [Christiana Aspirin EC] 81 mg PO DAILY 08/09/19 [History] Cholecalciferol [Vitamin D3 (25 Mcg = 1000 Iu)] 25 mcg PO DAILY 05/23/20 [History] Ipratropium-Albuterol Nebulize [Duoneb 0.5 mg-3 mg/3 ml Soln] 3 ml INHALATION RT-QID 10/28/21 [History] Apixaban [Eliquis] 5 mg PO BID 04/09/23 [History] Metoprolol Succinate (ER) [Toprol XL] 100 mg PO DAILY 04/09/23 [History] Sodium Bicarbonate 325 mg PO BID 04/09/23 [History] calcitrioL 0.25 mcg PO WE 04/09/23 [History] guaiFENesin [Mucinex] 600 mg PO BID 04/09/23 [History] Albuterol Sulfate [Ventolin HFA] 2 puff INHALATION RT-QID PRN 7 Days #1 each 04/13/23 [Rx] Ciprofloxacin HCl [Cipro] 500 mg PO BID 5 Days #10 tab 04/13/23 [Rx] Famotidine [Pepcid] 20 mg PO DAILY #15 tab 04/13/23 [Rx] Furosemide [Lasix] 40 mg PO BID@0900,1600 #60 tab 04/13/23 [Rx] predniSONE 0 mg PO DIRECTED #24 tab 04/13/23 [Rx] Follow up Appointment(s)/Referral(s): Gibran Rain MD [STAFF PHYSICIAN] - 04/18/23 11:00 am Nirali Elizabeth MD [Primary Care Provider] - 04/18/23 3:00 pm Rajesh Flynn MD [STAFF PHYSICIAN] - 04/20/23 11:30 am Patient Instructions/Handouts: Respiratory Syncytial Virus (DC), COPD (Chronic Obstructive Pulmonary Disease) (DC) Activity/Diet/Wound Care/Special Instructions: heart healthy diet activity is restricted till you see your doctor Discharge Disposition: HOME WITH HOME HEALTH SERVICES
== END 2023-04-13 15:44 | disposition home health service (06) | DRG 291 ==
LOC: EC 14:45 → 4SSUR 16:49
PROVIDERS: ADMIT Hospitalist; ATTEND Hospitalist
DX: I11.0 Hypertensive heart disease with heart failure (principal); I50.43 Acute on chronic combined systolic (congestive) and diastolic (congestive) heart failure; J96.21 Acute and chronic respiratory failure with hypoxia; I48.21 Permanent atrial fibrillation; J21.0 Acute bronchiolitis due to respiratory syncytial virus; J44.0 Chronic obstructive pulmonary disease with (acute) lower respiratory infection; J44.1 Chronic obstructive pulmonary disease with (acute) exacerbation; J45.901 Unspecified asthma with (acute) exacerbation; I25.10 Atherosclerotic heart disease of native coronary artery without angina pectoris; I25.2 Old myocardial infarction; I08.3 Combined rheumatic disorders of mitral, aortic and tricuspid valves; I27.20 Pulmonary hypertension, unspecified; Z95.1 Presence of aortocoronary bypass graft; M10.9 Gout, unspecified; I49.5 Sick sinus syndrome; K44.9 Diaphragmatic hernia without obstruction or gangrene; M81.0 Age-related osteoporosis without current pathological fracture; H35.30 Unspecified macular degeneration; N39.3 Stress incontinence (female) (male); Z99.81 Dependence on supplemental oxygen; Z68.33 Body mass index [BMI] 33.0-33.9, adult; E66.9 Obesity, unspecified; Z79.01 Long term (current) use of anticoagulants; Z79.82 Long term (current) use of aspirin; Z79.890 Hormone replacement therapy; Z79.899 Other long term (current) drug therapy; Z82.49 Family history of ischemic heart disease and other diseases of the circulatory system; Z85.828 Personal history of other malignant neoplasm of skin; Z87.01 Personal history of pneumonia (recurrent); Z95.0 Presence of cardiac pacemaker; Z95.5 Presence of coronary angioplasty implant and graft; Z28.21 Immunization not carried out because of patient refusal; Z87.440 Personal history of urinary (tract) infections; Z87.891 Personal history of nicotine dependence
CPT/HCPCS: 36415; 71046; 80048; 80053; 81001; 83605; 83880; 84145; 84484; 85025; 85610; 85730; 87070; 87205; 87636; 93005; 93306; 94640; 94760; 96374; 96375; 96376; 99285

== ENCOUNTER 2023-07-13 13:54 | Inpatient (IN) | payer MEDICARE ==
[2023-07-13] MEDS: IPRATROPIUM-ALBUTEROL 3 ML NEB INHALATION STA ×2 (14:09→16:49)
[2023-07-13] MEDS: SODIUM CHLORIDE 0.9% 1,000 ML IV STA (14:15)
[2023-07-13] MEDS: SODIUM CHLORIDE 0.9% 500 ML 500 ML IV STA (14:16)
[2023-07-13] MEDS: methylPREDNISolone SOD SUCCI 125 MG/2 ML VIAL IV STA (14:18)
--- NOTE | 2023-07-13 14:20 | ED ---
SOB HPI - General Chief Complaint: Shortness of Breath Stated Complaint: RASHAD Time Seen by Provider: 07/13/23 13:57 Source: patient, EMS, RN notes reviewed, old records reviewed Mode of arrival: EMS Limitations: no limitations - History of Present Illness Initial Comments: This is a 77-year-old female to the ER today. This patient [place] for evaluation of severe shortness of breath. Patient has severe persistent shortness of breath on arrival to the ER with complaints of lightheadedness and dizziness. Has had increasing shortness of breath on her normal 2 L and can continue to increase oxygen levels at home with still persistent shortness of b reath and persistent hypoxia. Patient presents EMS with severe dyspnea MD Complaint: shortness of breath, cough, "asthma attack", anxiety -: days(s) Severity: severe Severity scale (1-10): 8 Consistency: constant Improves With: nothing Worsens With: nothing Known History Of: COPD, asthma Context: recent URI, anxiety, recent illness Associated Symptoms: chest pain, pain with inspiration, cough Treatments Prior to Arrival: oxygen, bronchodilator - Related Data Home Medications Medication Instructions Recorded Confirmed Vit C/E/Zn/Coppr/Lutein/Zeaxan 1 cap PO BID 03/02/15 07/13/23 [Preservision Areds 2 Softgel] allopurinoL [Zyloprim] 100 mg PO DAILY 10/22/18 07/13/23 Fluticasone/Umeclidin/Vilanter 1 puff INHALATION RT-DAILY 07/01/19 07/13/23 [Trelegy Ellipta 100-62.5-25] Aspirin [Yettem Aspirin EC] 81 mg PO DAILY 08/09/19 07/13/23 Cholecalciferol [Vitamin D3 (25 25 mcg PO MOWEFR 05/23/20 07/13/23 Mcg = 1000 Iu)] Ipratropium-Albuterol Nebulize 3 ml INHALATION RT-QID 10/28/21 07/13/23 [Duoneb 0.5 mg-3 mg/3 ml Soln] Apixaban [Eliquis] 5 mg PO BID 04/09/23 07/13/23 Sodium Bicarbonate 325 mg PO BID 04/09/23 07/13/23 calcitrioL 0.25 mcg PO MOWEFR 04/09/23 07/13/23 guaiFENesin [Mucinex] 600 mg PO BID 04/09/23 07/13/23 Levothyroxine Sodium [Synthroid] 50 mcg PO DAILY 07/13/23 07/13/23 Magnesium Oxide [Magox 400] 400 mg PO DAILY 07/13/23 07/13/23 Previous Rx's Medication Instructions Recorded Atorvastatin [Lipitor] 40 mg PO HS #30 tab 03/04/15 Albuterol Sulfate [Ventolin HFA] 2 puff INHALATION RT-QID PRN 7 04/13/23 Days #1 each Furosemide [Lasix] 40 mg PO BID@0900,1600 #60 tab 04/13/23 Dapagliflozin Propanediol [Farxiga] 10 mg PO DAILY #30 tab 07/18/23 Lidocaine 4% Patch 1 patch TOPICAL DAILY #7 patch 07/18/23 Metoprolol Succinate (ER) [Toprol 50 mg PO DAILY #30 tab 07/18/23 XL] Allergies Allergy/AdvReac Type Severity Reaction Status Date / Time codeine Allergy Itching Verified 07/13/23 16:16 Review of Systems ROS Statement: Those systems with pertinent positive or pertinent negative responses have been documented in the HPI. ROS Other: All systems not noted in ROS Statement are negative. Past Medical History Past Medical History: Atrial Fibrillation, Asthma, Coronary Artery Disease (CAD), Cancer, COPD, Eye Disorder, Hearing Disorder / Deafness, Myocardial Infarction ([place]), Osteoarthritis (OA), Pneumonia, Thyroid Disorder Additional Past Medical History / Comment(s): See Dr Trimble's H&P, Gout, hiatal hernia, Macular Degeneration, Skin Cancer, degenerative disc disease, osteoporosis. UTI 07/01/19. Last Myocardial Infarction Date:: 2011 History of Any Multi-Drug Resistant Organisms: None Reported Past Surgical History: Cardiac Ablation, Cholecystectomy, Heart Catheterization With Stent, Hysterectomy, Orthopedic Surgery, Pacemaker, Tonsillectomy Additional Past Surgical History / Comment(s): Right shoulder surgery, left wrist surgery. Thyroid Nodule removed, sylvia Cataracts, LOOP RECORDER-11/23/17; CHRIO ABLATION 03/08/18 WITH CARDIOVERSION Past Anesthesia/Blood Transfusion Reactions: No Reported Reaction Date of Last Stent Placement:: 2011 Type of Cardiac Device: Permanent Pacemaker Device Placement Date:: 07/2019 Past Psychological History: No Psychological Hx Reported Smoking Status: Former smoker Past Alcohol Use History: None Reported Past Drug Use History: None Reported - Past Family History Mother Family Medical History: Cancer, Congestive Heart Failure (CHF), Myocardial Infarction ([place]), Pneumonia, Pulmonary Embolus Additional Family Medical History / Comment(s): breast CA Father Family Medical History: CVA/TIA, Myocardial Infarction ([place]) General Exam Limitations: altered mental status General appearance: alert, anxious, in distress Head exam: Present: atraumatic, normocephalic, normal inspection Eye exam: Present: normal appearance, PERRL, EOMI. Absent: scleral icterus, conjunctival injection, periorbital swelling ENT exam: Present: normal exam, mucous membranes moist Neck exam: Present: normal inspection. Absent: tenderness, meningismus, lymphadenopathy Respiratory exam: Present: respiratory distress, wheezes, accessory muscle use, decreased breath sounds, prolonged expiratory. Absent: rales, rhonchi, stridor Cardiovascular Exam: Present: regular rate, normal rhythm, normal heart sounds. Absent: systolic murmur, diastolic murmur, rubs, gallop, clicks GI/Abdominal exam: Present: soft, normal bowel sounds. Absent: distended, tenderness, guarding, rebound, rigid Extremities exam: Present: normal inspection, full ROM, normal capillary refill. Absent: tenderness, pedal edema, joint swelling, calf tenderness Back exam: Present: normal inspection Neurological exam: Present: alert, oriented X3, CN II-XII intact Psychiatric exam: Present: normal affect, normal mood Skin exam: Present: warm, dry, intact, normal color. Absent: rash Course Vital Signs 07/13/23 07/13/23 07/13/23 14:00 14:10 14:18 Temperature 99.2 F Pulse Rate 80 69 64 Respiratory 26 H 16 16 Rate Blood Pressure 165/75 O2 Sat by Pulse 95 Oximetry 07/13/23 07/13/23 07/13/23 14:20 15:18 16:20 Temperature 97.8 F Pulse Rate 64 62 41 L Respiratory 24 21 24 Rate Blood Pressure 129/69 126/67 O2 Sat by Pulse 96 95 94 L Oximetry 07/13/23 07/13/23 07/13/23 16:45 16:49 16:59 Temperature Pulse Rate 52 L 76 60 Respiratory 24 Rate Blood Pressure 142/62 O2 Sat by Pulse 93 L Oximetry 07/13/23 07/13/23 17:03 17:17 Temperature 97.8 F Pulse Rate 62 46 L Respiratory 22 24 Rate Blood Pressure 138/65 O2 Sat by Pulse 97 96 Oximetry - Reevaluation(s) Reevaluation #1: 07/13/23 16:39 Record is reviewed Reevaluation #2: 07/13/23 16:39 Patient symptoms are unchanged Reevaluation #3: 07/13/23 16:39 Patient informed of results questions answered Reevaluation #4: Was pt. sent in by a medical professional or institution ([facility], MEDICAL DIRECTOR OF HOSPICE, urgent care, hospital, or residential...) When possible be specific @ -no Did you speak to anyone other than the patient for history (EMS, parent, family, police, friend...)? What history was obtained from this source @ -no Did you review nursing and triage notes (agree or disagree)? Why? @ -agree Are old charts reviewed (outside hosp., previous admission, EMS record, old EKG, old radiological studies, urgent care reports/EKG's, residential records)? Report findings @ -yes Differential Diagnosis (chest pain, altered mental status, abdominal pain women, abdominal pain men, vaginal bleeding, weakness, fever, dyspnea, syncope, headache, dizziness, GI bleed, back pain, seizure, CVA, palpatations, mental health, musculoskeletal)? @ -prior EKG interpreted by me (3pts min.). @ -yes X-rays interpreted by me (1pt min.). @ -yes n significant for CHF CT interpreted by me (1pt min.). @ -no U/S interpreted by me (1pt. min.). @ -no What testing was considered but not performed or refused? (CT, X-rays, U/S, labs)? Why? @ -none What meds were considered but not given or refused? Why? @ -none Did you discuss the management of the patient with other professionals (professionals i.e. [facility], MEDICAL DIRECTOR OF HOSPICE, lab, RT, psych nurse, social science analyst, assembler watch train, teacher, search and rescue officer, immigration case manager)? Give summary @ -no Was smoking cessation discussed for >3mins.? @ -no Was critical care preformed (if so, how long)? @ -yes31 Were there social determinants of health that impacted care today? How? (Homelessness, low income, unemployed, alcoholism, drug addiction, transportation, low edu. Level, literacy, decrease access to med. care, [facility], rehab)? @ -none Was there de-escalation of care discussed even if they declined (Discuss DNR or withdrawal of care, Hospice)? DNR status @ -no What co-morbidities impacted this encounter? (DM, HTN, Smoking, COPD, CAD, Cancer, CVA, ARF, Chemo, Hep., AIDS, mental health diagnosis, sleep apnea, morbid obesity)? @ -none Was patient admitted / discharged? Hospital course, mention meds given and route, prescriptions, significant lab abnormalities, going to OR and other pertinent info. @ - 77 female to the ER for evaluation of significant shortness of breath multifactorial respiratory failure and hypoxia with COPD and CHF Admitted Undiagnosed new problem with uncertain prognosis? @ -no Drug Therapy requiring intensive monitoring for toxicity (Heparin, Nitro, Insulin, Cardizem)? @ -no Were any procedures done? @ -no Diagnosis/symptom? @ -Hypoxia COPD CHF and respiratory failure Acute, or Chronic, or Acute on Chronic? @ -Acute Uncomplicated (without systemic symptoms) or Complicated (systemic symptoms)? @ -Complicated Side effects of treatment? @ -no Exacerbation, Progression, or Severe Exacerbation? @ -exacerbation Poses a threat to life or bodily function? How? (Chest pain, [place], [place], pneumonia, PE, COPD, DKA, ARF, appy, cholecystitis, CVA, Diverticulitis, Homicidal, Suicidal, threat to staff... and all critical care pts) @ -yes with significant respiratory failure Reevaluation #5: Differential Dyspnea: Coronary syndrome, arrhythmia, tamponade, asthma, COPD, pulmonary embolism, pneumonia, pneumothorax, pulmonary effusion, anaphylaxis, diabetic ketoacidosis, flailed chest, pulmonary contusion, diaphragmatic rupture, anemia, neuromuscular, this is not meant to be an all-inclusive list. - Consultations Consultation #1: Spoke with admitting physicians who agreed to admit this patient Medical Decision Making - Medical Decision Making 77 female to the ER for evaluation of significant shortness of breath multifactorial respiratory failure and hypoxia with COPD and CHF - Lab Data Result diagrams: 07/17/23 10:48 07/18/23 07:55 Lab Results 07/13/23 07/13/23 07/13/23 Range/Units 14:12 14:12 14:12 WBC 8.5 (3.8-10.6) k/uL RBC 4.05 (3.80-5.40) m/uL Hgb 11.4 (11.4-16.0) gm/dL Hct 34.9 (34.0-46.0) % MCV 86.0 (80.0-100.0) fL MCH 28.1 (25.0-35.0) pg MCHC 32.7 (31.0-37.0) g/dL RDW 17.6 H (11.5-15.5) % Plt Count 105 L (150-450) k/uL MPV 9.3 Neutrophils % 76 % Lymphocytes % 13 % Monocytes % 7 % Eosinophils % 2 % Basophils % 0 % Neutrophils # 6.5 (1.3-7.7) k/uL Lymphocytes # 1.1 (1.0-4.8) k/uL Monocytes # 0.6 (0-1.0) k/uL Eosinophils # 0.1 (0-0.7) k/uL Basophils # 0.0 (0-0.2) k/uL Hypochromasia Slight Anisocytosis Slight PT 11.0 (10.0-12.5) sec INR 1.0 (<1.2) APTT 27.7 (22.0-30.0) sec Sodium 134 L (137-145) mmol/L Potassium 4.2 (3.5-5.1) mmol/L Chloride 106 (98-107) mmol/L Carbon Dioxide 22 (22-30) mmol/L Anion Gap 6 mmol/L BUN 32 H (7-17) mg/dL Creatinine 1.02 (0.52-1.04) mg/dL Est GFR (CKD-EPI)AfAm 62 (>60 ml/min/1.73 sqM) Est GFR (CKD-EPI)NonAf 54 (>60 ml/min/1.73 sqM) Glucose 101 H (74-99) mg/dL Calcium 8.8 (8.4-10.2) mg/dL Magnesium 2.1 (1.6-2.3) mg/dL Total Bilirubin 1.7 H (0.2-1.3) mg/dL AST 47 H (14-36) U/L ALT 24 (4-34) U/L Alkaline Phosphatase 111 (38-126) U/L Troponin I (0.000-0.034) ng/mL NT-Pro-B Natriuret Pep 14413 pg/mL Total Protein 6.3 (6.3-8.2) g/dL Albumin 3.5 (3.5-5.0) g/dL 07/13/23 Range/Units 14:12 WBC (3.8-10.6) k/uL RBC (3.80-5.40) m/uL Hgb (11.4-16.0) gm/dL Hct (34.0-46.0) % MCV (80.0-100.0) fL MCH (25.0-35.0) pg MCHC (31.0-37.0) g/dL RDW (11.5-15.5) % Plt Count (150-450) k/uL MPV Neutrophils % % Lymphocytes % % Monocytes % % Eosinophils % % Basophils % % Neutrophils # (1.3-7.7) k/uL Lymphocytes # (1.0-4.8) k/uL Monocytes # (0-1.0) k/uL Eosinophils # (0-0.7) k/uL Basophils # (0-0.2) k/uL Hypochromasia Anisocytosis PT (10.0-12.5) sec INR (<1.2) APTT (22.0-30.0) sec Sodium (137-145) mmol/L Potassium (3.5-5.1) mmol/L Chloride (98-107) mmol/L Carbon Dioxide (22-30) mmol/L Anion Gap mmol/L BUN (7-17) mg/dL Creatinine (0.52-1.04) mg/dL Est GFR (CKD-EPI)AfAm (>60 ml/min/1.73 sqM) Est GFR (CKD-EPI)NonAf (>60 ml/min/1.73 sqM) Glucose (74-99) mg/dL Calcium (8.4-10.2) mg/dL Magnesium (1.6-2.3) mg/dL Total Bilirubin (0.2-1.3) mg/dL AST (14-36) U/L ALT (4-34) U/L Alkaline Phosphatase (38-126) U/L Troponin I 0.037 H* (0.000-0.034) ng/mL NT-Pro-B Natriuret Pep pg/mL Total Protein (6.3-8.2) g/dL Albumin (3.5-5.0) g/dL - EKG Data -: EKG Interpreted by Me (EKG is paced 79 QRS 124 QTc 410) - Radiology Data Radiology results: report reviewed (X-ray with effusion and pulmonary edema), image reviewed Critical Care Time Critical Care Time: Yes Total Critical Care Time: 31 Disposition Clinical Impression: Dyspnea, COPD exacerbation, Unstable angina, NSTEMI (non-ST elevated myocardial infarction), Congestive heart failure (CHF), Hypoxia, Chronic obstructive pulmonary disease (COPD), Systolic congestive heart failure, Acute pulmonary edema Disposition: ADMITTED IP TO THIS HOSP Condition: Fair Is patient prescribed a controlled substance at d/c from ED?: No Time of Disposition: 16:30
[2023-07-13 14:27] LABS: Partial Thromboplastin Time 27.7 sec (22.0-30.0)
--- NOTE | 2023-07-13 14:33 | XR ---
EXAMINATION TYPE: XR chest 1V portable DATE OF EXAM: 07/13/2023 2:28 PM CLINICAL INDICATION:Female, 77 years old with history of sob; COMPARISON: Chest radiographs from 04/09/2023 TECHNIQUE: XR chest 1V portable Frontal view of the chest. FINDINGS: Lungs/Pleura: There is no evidence of pleural effusion, focal consolidation, or pneumothorax. Pulmonary vascularity: Pulmonary vascular congestion. Heart/mediastinum: Cardiomediastinal silhouette is enlarged and stable. Three lead cardiac conduction device overlying the left hemithorax with lead tips projecting over the right ventricle, right atriu m and coronary sinus. Musculoskeletal: No acute osseous pathology. Other findings: None Lines/Tubes: IMPRESSION: Cardiomegaly and mild pulmonary vascular congestion. Correlate with BNP for congestive heart failure.
[2023-07-13 14:35] LABS: ALT 24 U/L (4-34); AST 47 U/L (14-36); African American GFR (CKD) 62 (>60 ml/min/1.73 sqM); Albumin 3.5 g/dL (3.5-5.0); Alkaline Phosphatase 111 U/L (38-126); Anion Gap 6 mmol/L; Blood Urea Nitrogen 32 mg/dL (7-17); Calcium 8.8 mg/dL (8.4-10.2); Carbon Dioxide 22 mmol/L (22-30); Chloride 106 mmol/L (98-107); Glucose 101 mg/dL (74-99); Magnesium 2.1 mg/dL (1.6-2.3); Non-African American GFR(CKD) 54 (>60 ml/min/1.73 sqM); Sodium 134 mmol/L (137-145); Total Bilirubin 1.7 mg/dL (0.2-1.3); Total Protein 6.3 g/dL (6.3-8.2)
[2023-07-13 14:40] LABS: Potassium 4.2 mmol/L (3.5-5.1)
[2023-07-13 14:41] LABS: NT-Pro-B-Type Natriuretic Pept 15900 pg/mL
[2023-07-13 15:05] LABS: Anisocytosis Slight; Basophils % (A) 0 %; Eosinophils # (A) 0.1 k/uL (0-0.7); Eosinophils % (A) 2 %; HCT 34.9 % (34.0-46.0); HGB 11.4 gm/dL (11.4-16.0); Hypochromasia Slight; Lymphocytes # (A) 1.1 k/uL (1.0-4.8); Lymphocytes % (A) 13 %; MCH 28.1 pg (25.0-35.0); MCHC 32.7 g/dL (31.0-37.0); Mean Platelet Volume 9.3; Monocytes # (A) 0.6 k/uL (0-1.0); Monocytes % (A) 7 %; Neutrophils # (A) 6.5 k/uL (1.3-7.7); Neutrophils % (A) 76 %; Platelet Count 105 k/uL (150-450); RBC 4.05 m/uL (3.80-5.40); RDW 17.6 % (11.5-15.5); WBC 8.5 k/uL (3.8-10.6)
[2023-07-13] MEDS ORDERED: ONDANSETRON 4 MG/2 ML VIAL IVP PRN (16:33)
[2023-07-13] MEDS ORDERED: NALOXONE 0.4 MG/ML 1 ML VIAL IV PRN (16:33)
[2023-07-13] MEDS: SODIUM CHLORIDE 0.9% 1,000 ML IV SCH (16:41)
[2023-07-13] MEDS: FUROSEMIDE 10 MG/ML 10 ML VIAL IV STA (16:41)
[2023-07-13] MEDS: IPRATROPIUM-ALBUTEROL 3 ML NEB INHALATION SCH (19:21)
--- NOTE | 2023-07-13 19:58 | P.CNPUL ---
History of Present Illness Consult date: 07/13/23 Reason for consult: dyspnea History of present illness: This is a 77-year-old female patient was hospitalized for worsening shortness of breath. This is recurrent hospitalization for decompensated heart failure. The patient came into the hospital because of worsening shortness of breath. She is on O2 at 2 L/min nasal cannula and her oxygen requirements were gradually going up and the symptoms the patient noted increased lower extremity edema. Denied having any chest pain. Based on that she came into the hospital. Chest x-ray was consistent with CHF. The patient also has a pacemaker pocket over the left anterior chest area. The hilum is prominent and full bilaterally. As far as his blood work, the patient demonstrated an elevated proBNP level of 15,900. Troponin 0.03 and 0.05 respectively x 2. Electrolytes are essentially within normal limits with a BUN of 32 and a creatinine of 1.02. Hemoglobin is at 11.4. EKG showed a paced rhythm. At this point in time, the patient has already received a dose of Lasix in the emergency department. Denies having any chest pain. Past medical history is positive for a recent stroke exacerbation that occurred in March 2023 for an acute RSV infection. She is known to have sever e COPD, chronic hypoxic nadege failure maintain O2 at 2 L, chronic A-fib, hypothyroidism, coronary artery disease and previous history of coronary stenting. She does have degenerative arthritis and previous history of skin cancer and osteoporosis. Review of Systems REVIEW OF SYSTEMS: CONSTITUTIONAL: Denies any recent significant weight loss or weight gain. EYES: Denies change in vision. EARS, NOSE, MOUTH, THROAT: Denies headaches, denies sore throat. CARDIOVASCULAR: See HPI RESPIRATORY: See HPI GASTROINTESTINAL: Denies change in appetite, abdominal pain, nausea and vomiting, or diarrhea GENITOURINARY: Denies hematuria, denies infections. MUSKULOSKELETAL: Denies pain, denies swelling. INTEGUMENTARY: Denies rash, denies eczema. NEUROLOGICAL: Denies recent memory loss, no recent seizure activity. PSYCHIATRIC: Denies anxiety, denies depression. HEMATOLOGIC/LYMPHATIC: Denies anemia, denies enlarged lymph node Past Medical History Past Medical History: Atrial Fibrillation, Asthma, Coronary Artery Disease (CAD), Cancer, Heart Failure, COPD, Eye Disorder, Hearing Disorder / Deafness, Myocardial Infarction ([place]), Osteoarthritis (OA), Pneumonia, Thyroid Disorder Additional Past Medical History / Comment(s): See Dr Trimble's H&P, Gout, hiatal hernia, Macular Degeneration, Skin Cancer, degenerative disc disease, osteoporosis. UTI 07/01/19. Last Myocardial Infarction Date:: 2011 History of Any Multi-Drug Resistant Organisms: None Reported Past Surgical History: Cardiac Ablation, Cholecystectomy, Heart Catheterization With Stent, Hysterectomy, Orthopedic Surgery, Pacemaker, Tonsillectomy Additional Past Surgical History / Comment(s): Right shoulder surgery, left wrist surgery. Thyroid Nodule removed, sylvia Cataracts, LOOP RECORDER-11/23/17; CHRIO ABLATION 03/08/18 WITH CARDIOVERSION Past Anesthesia/Blood Transfusion Reactions: No Reported Reaction Date of Last Stent Placement:: 2011 Type of Cardiac Device: Permanent Pacemaker Device Placement Date:: 07/2019 Past Psychological History: No Psychological Hx Reported Smoking Status: Former smoker Past Alcohol Use History: None Reported Additional Past Alcohol Use History / Comment(s): started smoking at age 15(1961) and quit 2006, smoked 2ppd Past Drug Use History: None Reported - Past Family History Mother Family Medical History: Cancer, Congestive Heart Failure (CHF), Myocardial Infarction ([place]), Pneumonia, Pulmonary Embolus Additional Family Medical History / Comment(s): breast CA Father Family Medical History: CVA/TIA, Myocardial Infarction ([place]) Medications and Allergies Home Medications Medication Instructions Recorded Confirmed Type Vit C/E/Zn/Coppr/Lutein/Zeaxan 1 cap PO BID 03/02/15 07/13/23 History [Preservision Areds 2 Softgel] Atorvastatin [Lipitor] 40 mg PO HS #30 tab 03/04/15 07/13/23 Rx allopurinoL [Zyloprim] 100 mg PO DAILY 10/22/18 07/13/23 History Fluticasone/Umeclidin/Vilanter 1 puff INHALATION RT-DAILY 07/01/19 07/13/23 History [Treleroseline Ellipta 100-62.5-25] Aspirin [[place] Aspirin EC] 81 mg PO DAILY 08/09/19 07/13/23 History Cholecalciferol [Vitamin D3 (25 25 mcg PO MOWEFR 05/23/20 07/13/23 History Mcg = 1000 Iu)] Ipratropium-Albuterol Nebulize 3 ml INHALATION RT-QID 10/28/21 07/13/23 History [Duoneb 0.5 mg-3 mg/3 ml Soln] Apixaban [Eliquis] 5 mg PO BID 04/09/23 07/13/23 History Metoprolol Succinate (ER) [Toprol 100 mg PO DAILY 04/09/23 07/13/23 History XL] Sodium Bicarbonate 325 mg PO BID 04/09/23 07/13/23 History calcitrioL 0.25 mcg PO MOWEFR 04/09/23 07/13/23 History guaiFENesin [Mucinex] 600 mg PO BID 04/09/23 07/13/23 History Albuterol Sulfate [Ventolin HFA] 2 puff INHALATION RT-QID PRN 7 04/13/23 07/13/23 Rx Days #1 each Furosemide [Lasix] 40 mg PO BID@0900,1600 #60 tab 04/13/23 07/13/23 Rx Levothyroxine Sodium [Synthroid] 50 mcg PO DAILY 07/13/23 07/13/23 History Magnesium Oxide [Magox 400] 400 mg PO DAILY 07/13/23 07/13/23 History Allergies Allergy/AdvReac Type Severity Reaction Status Date / Time codeine Allergy Itching Verified 07/13/23 16:16 Physical Exam Vitals: Vital Signs Temp Pulse Pulse Resp BP BP Pulse Ox 07/13/23 18:12 98.2 F 68 21 136/70 90 L 07/13/23 17:51 98.2 F 68 17 136/70 90 L 07/13/23 17:17 97.8 F 46 L 24 138/65 96 07/13/23 17:03 62 22 97 07/13/23 16:59 60 07/13/23 16:49 76 07/13/23 16:45 52 L 24 142/62 93 L 07/13/23 16:20 97.8 F 41 L 24 126/67 94 L 07/13/23 15:18 62 21 129/69 95 07/13/23 14:20 64 24 96 07/13/23 14:18 64 16 07/13/23 14:10 69 16 07/13/23 14:00 99.2 F 80 26 H 165/75 95 Intake and Output 07/13/23 07/13/23 07/13/23 06:59 14:59 22:59 Other: Weight 70.307 kg 70.307 kg GENERAL EXAM: Alert, pleasant 77-year-old female, seen up at the bedside, currently on 2 L of oxygen by nasal cannula,, comfortable HEAD: Normocephalic and atraumatic EYES: Normal reaction of pupils, equal size. NOSE: Clear with pink turbinates. THROAT: No erythema or exudates. NECK: No masses, no JVD. CHEST: No chest wall deformity. LUNGS: Equal air entry with expiratory wheezes heard throughout. No conversational dyspnea. CVS: S1 and S2 normal with no audible murmur, regular rhythm. No extra heart sounds pacemaker pocket over the left anterior chest area. ABDOMEN: No hepatosplenomegaly, active bowel sounds, no guarding or rigidity. SPINE: No scoliosis or deformity SKIN: No rashes CENTRAL NERVOUS SYSTEM: No focal deficits, tone is normal in all 4 extremities. EXTREMITIES: There is bilateral lower extremity mild nonpitting edema with, and the patient has a. No clubbing, or cyanosis. Peripheral pulses are intact. Results - Laboratory Findings CBC and BMP: 07/13/23 14:12 07/13/23 14:12 ABG WBC 8.5 k/uL (3.8-10.6) 07/13/23 14:12 RBC 4.05 m/uL (3.80-5.40) 07/13/23 14:12 Hgb 11.4 gm/dL (11.4-16.0) 07/13/23 14:12 Hct 34.9 % (34.0-46.0) 07/13/23 14:12 MCV 86.0 fL (80.0-100.0) 07/13/23 14:12 MCH 28.1 pg (25.0-35.0) 07/13/23 14:12 MCHC 32.7 g/dL (31.0-37.0) 07/13/23 14:12 RDW 17.6 % (11.5-15.5) H 07/13/23 14:12 Plt Count 105 k/uL (150-450) L 07/13/23 14:12 MPV 9.3 07/13/23 14:12 Neutrophils % 76 % 07/13/23 14:12 Lymphocytes % 13 % 07/13/23 14:12 Monocytes % 7 % 07/13/23 14:12 Eosinophils % 2 % 07/13/23 14:12 Basophils % 0 % 07/13/23 14:12 Neutrophils # 6.5 k/uL (1.3-7.7) 07/13/23 14:12 Lymphocytes # 1.1 k/uL (1.0-4.8) 07/13/23 14:12 Monocytes # 0.6 k/uL (0-1.0) 07/13/23 14:12 Eosinophils # 0.1 k/uL (0-0.7) 07/13/23 14:12 Basophils # 0.0 k/uL (0-0.2) 07/13/23 14:12 Hypochromasia Slight 07/13/23 14:12 Anisocytosis Slight 07/13/23 14:12 PT 11.0 sec (10.0-12.5) 07/13/23 14:12 INR 1.0 (<1.2) 07/13/23 14:12 APTT 27.7 sec (22.0-30.0) 07/13/23 14:12 Sodium 134 mmol/L (137-145) L 07/13/23 14:12 Potassium 4.2 mmol/L (3.5-5.1) 07/13/23 14:12 Chloride 106 mmol/L (98-107) 07/13/23 14:12 Carbon Dioxide 22 mmol/L (22-30) 07/13/23 14:12 Anion Gap 6 mmol/L 07/13/23 14:12 BUN 32 mg/dL (7-17) H 07/13/23 14:12 Creatinine 1.02 mg/dL (0.52-1.04) 07/13/23 14:12 Est GFR (CKD-EPI)AfAm 62 (>60 ml/min/1.73 sqM) 07/13/23 14:12 Est GFR (CKD-EPI)NonAf 54 (>60 ml/min/1.73 sqM) 07/13/23 14:12 Glucose 101 mg/dL (74-99) H 07/13/23 14:12 Calcium 8.8 mg/dL (8.4-10.2) 07/13/23 14:12 Magnesium 2.1 mg/dL (1.6-2.3) 07/13/23 14:12 Total Bilirubin 1.7 mg/dL (0.2-1.3) H 07/13/23 14:12 AST 47 U/L (14-36) H 07/13/23 14:12 ALT 24 U/L (4-34) 07/13/23 14:12 Alkaline Phosphatase 111 U/L (38-126) 07/13/23 14:12 Troponin I 0.037 ng/mL (0.000-0.034) H* 07/13/23 14:12 NT-Pro-B Natriuret Pep 48650 pg/mL 07/13/23 14:12 Total Protein 6.3 g/dL (6.3-8.2) 07/13/23 14:12 Albumin 3.5 g/dL (3.5-5.0) 07/13/23 14:12 PT/INR, D-dimer PT 11.0 sec (10.0-12.5) 07/13/23 14:12 INR 1.0 (<1.2) 07/13/23 14:12 Abnormal lab findings: Abnormal Labs 07/13/23 07/13/23 07/13/23 14:12 14:12 14:12 RDW 17.6 H Plt Count 105 L Sodium 134 L BUN 32 H Glucose 101 H Total Bilirubin 1.7 H AST 47 H Troponin I 0.037 H* - Diagnostic Findings Chest x-ray: image reviewed Assessment and Plan Plan: Acute on chronic hypoxemic respiratory failure, currently on 4 L/min nasal cannula, and the decompensated respiratory status is related to CHF as the patient has signs of fluid overload, pulmonary edema and she has an elevated pro BNP level. Limited troponin leak, nonspecific, without any acute EKG changes. EKG is showing a paced rhythm Your COPD, currently inactive and stable Acute RSV infection with secondary COPD exacerbation has occurred back in March 2023 Nonspecific mediastinal lymphadenopathy without any significant metabolic activity based on the PET scan that was done in November 2021 Chronic hypoxemic respiratory failure, normally maintained on 2 L at bedtime, secondary to above Moderate pulmonary hypertension secondary to above Coronary artery disease, with history of previous PCI/stent History of sick sinus syndrome and chronic atrial fibrillation, status post permanent biventricular pacemaker implantation, and chronically anticoagulated on Eliquis Hypothyroidism Obesity, with a BMI 33.6 kg/m Remote ex smoker Plan: Titrate oxygen flow to maintain saturation above 90% Wean down FiO2 as tolerated currently on 4 L will perform adequate medication reconciliation Start the patient on Lasix 40 mg IV every 12 hours Continue anticoagulation with Eliquis Resume metoprolol Repeat echocardiogram, most recent echocardiogram was done and March 2023 showed a preserved LV function with an ejection fraction of 60 to 65%, severe pulm hypertension with a PA pressure of 74 and moderate degree of mitral regurgitation. Continue bronchodilators, no need for antibiotics. No need for steroids Will continue to follow
[2023-07-13] MEDS ORDERED: APIXABAN 5 MG TAB PO SCH (21:00)
[2023-07-13] MEDS: ATORVASTATIN 40 MG TAB PO SCH (21:01)
[2023-07-13] MEDS: METOPROLOL SUCCINATE (ER) 50 MG TAB.ER.24H PO SCH (21:02)
[2023-07-13] MEDS: HEPARIN SOD,PORK IN 0.45% NACL 25,000 UNIT in 0.45% NACL 1 250ML.BAG IV SCH (21:03)
[2023-07-13] MEDS: FUROSEMIDE 10 MG/ML 4 ML VIAL IV SCH (21:03)
[2023-07-14 04:24] LABS: Anisocytosis Slight; Basophils % (A) 0 %; Eosinophils % (A) 0 %; HCT 34.2 % (34.0-46.0); HGB 10.4 gm/dL (11.4-16.0); Hypochromasia Slight; Lymphocytes # (A) 0.5 k/uL (1.0-4.8); Lymphocytes % (A) 11 %; MCH 26.3 pg (25.0-35.0); MCHC 30.4 g/dL (31.0-37.0); MCV 86.5 fL (80.0-100.0); Mean Platelet Volume 8.9; Monocytes # (A) 0.2 k/uL (0-1.0); Monocytes % (A) 4 %; Neutrophils # (A) 4.2 k/uL (1.3-7.7); Neutrophils % (A) 84 %; Platelet Count 114 k/uL (150-450); RBC 3.95 m/uL (3.80-5.40); RDW 17.6 % (11.5-15.5)
[2023-07-14 04:36] LABS: ALT 21 U/L (4-34); AST 29 U/L (14-36); African American GFR (CKD) 49 (>60 ml/min/1.73 sqM); Alkaline Phosphatase 91 U/L (38-126); Anion Gap 7 mmol/L; Blood Urea Nitrogen 39 mg/dL (7-17); Calcium 8.6 mg/dL (8.4-10.2); Carbon Dioxide 20 mmol/L (22-30); Chloride 107 mmol/L (98-107); Glucose 138 mg/dL (74-99); Magnesium 2.1 mg/dL (1.6-2.3); Non-African American GFR(CKD) 43 (>60 ml/min/1.73 sqM); Phosphorus 3.8 mg/dL (2.5-4.5); Potassium 4.1 mmol/L (3.5-5.1); Sodium 134 mmol/L (137-145); Total Protein 5.5 g/dL (6.3-8.2)
[2023-07-14] MEDS: LEVOTHYROXINE 50 MCG TAB PO SCH (06:22)
[2023-07-14] MEDS: METOPROLOL SUCCINATE (ER) 100 MG TAB.ER.24H PO SCH (07:33)
--- NOTE | 2023-07-14 08:10 | P.HPIM ---
History of Present Illness This is a pleasant 77 years old female with past medical history of COPD and heart disease and she follow-up with Dr. Currie and chronic kidney disease and bicytopenia. Presents because of worsening shortness of breath for the last 3 to 4 days associated with cough and yellow phlegm Patient denies chest pain She denies dizziness headache weakness or numbness No change in urine or bowel habits. No fever or chills She denies smoking alcohol or illicit drugs She is afebrile and vitals are stable However her oxygen dropped at home and usually she wears 2 L of oxygen bumped up to 3 L at home Condition patient saturation is acceptable CBC showed mild anemia 10.4, liver enzymes not elevated Platelet count 114 which is low Creatinine slightly up 1.23. Sodium is 134 stable D-dimer is -0.43 Troponin is elevated 0.0357 and 0.050[place] [address] Chest x-ray showing cardiomegaly with mild pulmonary vascular congestion EKG showing ventricular paced rhythm Patient started on heparin drip and IV Lasix 40 mg twice daily Review of Systems Review of systems CONSTITUTIONAL: No fever, no malaise, no fatigue. HEENT: No recent visual problems or hearing problems. Denied any sore throat. CARDIOVASCULAR: No orthopnea, PND, no palpitations, no syncope. -PULMONARY: No s chest wall tenderness, no hemoptysis. GASTROINTESTINAL: No diarrhea, no nausea, no vomiting, no abdominal pain. Normoactive bowel sounds. NEUROLOGICAL: No headaches, no weakness, no numbness. HEMATOLOGICAL: Denies any bleeding or petechiae. GENITOURINARY: Denies any burning micturition, frequency, or urgency. MUSCULOSKELETAL/RHEUMATOLOGICAL: Denies any joint pain, swelling, or any muscle pain. ENDOCRINE: Denies any polyuria or polydipsia. Past Medical History Past Medical History: Atrial Fibrillation, Asthma, Coronary Artery Disease (CAD), Cancer, Heart Failure, COPD, Eye Disorder, Hearing Disorder / Deafness, Myocardial Infarction ([place]), Osteoarthritis (OA), Pneumonia, Thyroid Disorder Additional Past Medical History / Comment(s): See Dr Trimble's H&P, Gout, hiatal hernia, Macular Degeneration, Skin Cancer, degenerative disc disease, os teoporosis. UTI 07/01/19. Last Myocardial Infarction Date:: 2011 History of Any Multi-Drug Resistant Organisms: None Reported Past Surgical History: Cardiac Ablation, Cholecystectomy, Heart Catheterization With Stent, Hysterectomy, Orthopedic Surgery, Pacemaker, Tonsillectomy Additional Past Surgical History / Comment(s): Right shoulder surgery, left wrist surgery. Thyroid Nodule removed, sylvia Cataracts, LOOP RECORDER-11/23/17; CHRIO ABLATION 03/08/18 WITH CARDIOVERSION Past Anesthesia/Blood Transfusion Reactions: No Reported Reaction Date of Last Stent Placement:: 2011 Type of Cardiac Device: Permanent Pacemaker Device Placement Date:: 07/2019 Past Psychological History: No Psychological Hx Reported Smoking Status: Former smoker Past Alcohol Use History: None Reported Additional Past Alcohol Use History / Comment(s): started smoking at age 15(1961) and quit 2006, smoked 2ppd Past Drug Use History: None Reported - Past Family History Mother Family Medical History: Cancer, Congestive Heart Failure (CHF), Myocardial Infarction ([place]), Pneumonia, Pulmonary Embolus Additional Family Medical History / Comment(s): breast [place] Father Family Medical History: CVA/TIA, Myocardial Infarction ([place]) Medications and Allergies Home Medications Medication Instructions Recorded Confirmed Type Vit C/E/Zn/Coppr/Lutein/Zeaxan 1 cap PO BID 03/02/15 07/13/23 History [Preservision Areds 2 Softgel] Atorvastatin [Lipitor] 40 mg PO HS #30 tab 03/04/15 07/13/23 Rx allopurinoL [Zyloprim] 100 mg PO DAILY 10/22/18 07/13/23 History Fluticasone/Umeclidin/Vilanter 1 puff INHALATION RT-DAILY 07/01/19 07/13/23 His tory [[place] Ellipta 100-62.5-25] Aspirin [[place] Aspirin EC] 81 mg PO DAILY 08/09/19 07/13/23 History Cholecalciferol [Vitamin D3 (25 25 mcg PO MOWEFR 05/23/20 07/13/23 History Mcg = 1000 Iu)] Ipratropium-Albuterol Nebulize 3 ml INHALATION RT-QID 10/28/21 07/13/23 History [Duoneb 0.5 mg-3 mg/3 ml Soln] Apixaban [Eliquis] 5 mg PO BID 04/09/23 07/13/23 History Metoprolol Succinate (ER) [Toprol 100 mg PO DAILY 04/09/23 07/13/23 History XL] Sodium Bicarbonate 325 mg PO BID 04/09/23 07/13/23 History calcitrioL 0.25 mcg PO MOWEFR 04/09/23 07/13/23 History guaiFENesin [Mucinex] 600 mg PO BID 04/09/23 07/13/23 History Albuterol Sulfate [Ventolin HFA] 2 puff INHALATION RT-QID PRN 7 04/13/23 07/13/23 Rx Days #1 each Furosemide [Lasix] 40 mg PO BID@0900,1600 #60 tab 04/13/23 07/13/23 Rx Levothyroxine Sodium [Synthroid] 50 mcg PO DAILY 07/13/23 07/13/23 History Magnesium Oxide [Magox 400] 400 mg PO DAILY 07/13/23 07/13/23 History Allergies Allergy/AdvReac Type Severity Reaction Status Date / Time codeine Allergy Itching Verified 07/13/23 16:16 Physical Exam Vitals: Vital Signs Temp Pulse Pulse Resp BP BP Pulse Ox 07/14/23 07:53 69 07/14/23 07:46 96 07/14/23 07:44 72 07/14/23 04:25 83 20 137/73 93 L 07/14/23 02:04 71 20 07/13/23 22:55 97.7 F 81 20 102/64 97 07/13/23 21:00 61 22 07/13/23 20:24 61 20 123/69 97 07/13/23 19:31 69 07/13/23 19:24 70 07/13/23 18:12 98.2 F 68 21 136/70 90 L 07/13/23 17:51 98.2 F 68 17 136/70 90 L 07/13/23 17:17 97.8 F 46 L 24 138/65 96 07/13/23 17:03 62 22 97 07/13/23 16:59 60 07/13/23 16:49 76 07/13/23 16:45 52 L 24 142/62 93 L 07/13/23 16:20 97.8 F 41 L 24 126/67 94 L 07/13/23 15:18 62 21 129/69 95 07/13/23 14:20 64 24 96 07/13/23 14:18 64 16 05/02/24 14:10 69 16 07/13/23 14:00 99.2 F 80 26 H 165/75 95 Intake and Output 07/13/23 07/14/23 07/14/23 22:59 06:59 14:59 Intake Total 10 560.011 Output Total 1000 Balance 10 -439.989 Intake: IV 10 Invasive Line 1 10 Intake, IV Titration 80.011 Amount Heparin Sod,Pork in 0.45% 80.011 NaCl 25,000 unit In 0.45 % NaCl 1 250ml.bag @ 12 UNITS/KG/HR 8.437 mls/hr IV .Q24H [facility] Rx#: [id number] Oral 480 Output: Urine 1000 Other: Voiding Method Toilet Toilet # Voids 1 Weight 70.307 kg 74.1 kg -GENERAL: The patient is alert and oriented x3, in mild acute distress due to breathing difficulty. Well developed, well nourished. HEENT: Pupils are round and equally reacting to light. EOMI. No scleral icterus. No conjunctival pallor. Normocephalic, atraumatic. No pharyngeal erythema. No thyromegaly. CARDIOVASCULAR: S1 and S2 present. No murmurs, rubs, or gallops. PULMONARY: Chest is clear to auscultation, no wheezing , no crackles. Patient is tachypneic ABDOMEN: Soft, nontender, nondistended, normoactive bowel sounds. No palpable organomegaly. MUSCULOSKELETAL: No joint swelling or deformity. EXTREMITIES: No cyanosis, clubbing, or pedal edema. NEUROLOGICAL: Gross neurological examination did not reveal any focal deficits. SKIN: No rashes. no petechiae. Results CBC & Chem 7: 07/14/23 03:49 07/14/23 03:49 Labs: Abnormal Lab Results - Last 24 Hours (Table) 07/13/23 07/13/23 07/13/23 Range/Units 14:12 14:12 14:12 Hgb (11.4-16.0) gm/dL MCHC (31.0-37.0) g/dL RDW 17.6 H (11.5-15.5) % Plt Count 105 L (150-450) k/uL Lymphocytes # (1.0-4.8) k/uL APTT (22.0-30.0) sec Sodium 134 L (137-145) mmol/L Carbon Dioxide (22-30) mmol/L BUN 32 H (7-17) mg/dL Creatinine (0.52-1.04) mg/dL Glucose 101 H (74-99) mg/dL Total Bilirubin 1.7 H (0.2-1.3) mg/dL AST 47 H (14-36) U/L Troponin I 0.037 H* (0.000-0.034) ng/mL Total Protein (6.3-8.2) g/dL Albumin (3.5-5.0) g/dL 07/13/23 07/14/23 07/14/23 Range/Units 18:03 03:49 03:49 Hgb 10.4 L (11.4-16.0) gm/dL MCHC 30.4 L (31.0-37.0) g/dL RDW 17.6 H (11.5-15.5) % Plt Count 114 L (150-450) k/uL Lymphocytes # 0.5 L (1.0-4.8) k/uL APTT (22.0-30.0) sec Sodium 134 L (137-145) mmol/L Carbon Dioxide 20 L (22-30) mmol/L BUN 39 H (7-17) mg/dL Creatinine 1.23 H (0.52-1.04) mg/dL Glucose 138 H (74-99) mg/dL Total Bilirubin (0.2-1.3) mg/dL AST (14-36) U/L Troponin I 0.050 H* (0.000-0.034) ng/mL Total Protein 5.5 L (6.3-8.2) g/dL Albumin 3.0 L (3.5-5.0) g/dL 07/14/23 Range/Units 03:49 Hgb (11.4-16.0) gm/dL MCHC (31.0-37.0) g/dL RDW (11.5-15.5) % Plt Count (150-450) k/uL Lymphocytes # (1.0-4.8) k/uL APTT 40.8 H (22.0-30.0) sec Sodium (137-145) mmol/L Carbon Dioxide (22-30) mmol/L BUN (7-17) mg/dL Creatinine (0.52-1.04) mg/dL Glucose (74-99) mg/dL Total Bilirubin (0.2-1.3) mg/dL AST (14-36) U/L Troponin I (0.000-0.034) ng/mL Total Protein (6.3-8.2) g/dL Albumin (3.5-5.0) g/dL Thrombosis Risk Factor Assmnt - Choose All That Apply Each Factor Represents 1 point: Abnormal pulmonary function (COPD), Obesity (BMI >25), Swollen legs (current) Each Risk Factor Represents 2 Points: Age 61-74 years Thrombosis Risk Factor Assessment Total Risk Factor Score: 5 Thrombosis Risk Factor Assessment Level: High Risk Assessment and Plan Assessment: Acute on chronic diastolic CHF, ejection fraction on 03/2023 showing EF 60 to 65% Elevated troponin suspicious for non-STEMI Mild acute kidney injury Bicytopenia with mild chronic anemia and thrombocytopenia Hyperlipidemia Hypertension
[2023-07-14] MEDS: CHOLECALCIFEROL 25 MCG (1000 IU) TABLET PO SCH (08:54)
[2023-07-14] MEDS: ASPIRIN 81 MG PO SCH (08:54)
--- NOTE | 2023-07-14 09:31 | XR ---
EXAMINATION TYPE: XR chest 1V DATE OF EXAM: 07/14/2023 7:11 AM CLINICAL INDICATION:Female, 77 years old with history of sob; [facility] COMPARISON: Chest radiographs from 07/13/2023 TECHNIQUE: XR chest 1V Frontal view of the chest. FINDINGS: Lungs/Pleura: There is no evidence of pleural effusion, focal consolidation, or pneumothorax. Pulmonary vascularity: Pulmonary vascular congestion. Heart/mediastinum: Cardiomediastinal silhouette is enlarged and stable. Atherosclerotic calcificatio ns are seen in the aorta. Three lead cardiac conduction device overlying the left hemithorax with rola d tips projecting over the right ventricle, right atrium and coronary sinus. Musculoskeletal: No acute osseous pathology. Other findings: None IMPRESSION: Cardiomegaly and mild pulmonary vascular congestion. Correlate with BNP for congestive heart failure.
[2023-07-14] MEDS: DAPAGLIFLOZIN PROPANEDIOL 10 MG TABLET PO SCH (11:45)
[2023-07-14] MEDS: APIXABAN 5 MG TAB PO SCH (11:45)
--- NOTE | 2023-07-14 13:03 | P.CRDCN ---
History of Present Illness History of present illness: HISTORY OF PRESENT ILLNESS: This is a 77-year-old female with a past medical history significant for COPD, permanent atrial fibrillation, A-fib ablation, x 2, sick sinus syndrome with biv entricular pacemaker implantation, hypertension, hyperlipidemia, and coronary artery disease. Patient follows in the office with Dr. Flynn. We have been asked to see the patient in consultation for congestive heart failure. Patient examined at the bedside. Patient presented to the hospital with a chief complaint of shortness of breath. The patient states her oxygen saturations at home are running in the 70s and 80s. She states that she uses oxygen at home at 2 L as needed but recently has been wearing it 03/10. She also reports that she had to turn up her oxygen to 3 L at home. She states that she was wheezing at home but that has since resolved. She continues to report shortness of breath although improved at the time of examination. She denies any chest pain or pressure. Vital signs are stable. The patient was found to be in acute CHF and was started on IV diuretics. DIAGNOSTICS: - EKG reveals ventricular paced rhythm with underlying atrial fibrillation. - Chest xray cardiomegaly and mild pulmonary vascular congestion. - Laboratory data: WBC 5.0. Hemoglobin 10.4. Platelet count 114. D-dimer 0.43. Sodium 134. Potassium 4.1. BUN 39. Creatinine 1.23. proBNP 15,900. Troponin 0.037. 0.050. - Current home cardiac medications include Eliquis 5 mg twice a day, Lipitor 40 mg at night, Lasix 40 mg twice a day, metoprolol succinate 100 mg daily. - Most recent echocardiogram obtained in March 2023 revealed ejection fraction 60 to 65%, severe pulmonary hypertension, RVSP 74 mmHg, moderate mitral regurgitation, severe tricuspid regurgitation - Patient underwent Lexiscan stress test in September 2020 which revealed fixed mid anterior wall defect secondary to soft tissue attenuation - Cardiac catheterization history: August 2017 revealing patent stent in the RCA. Mild nonobstructive disease involving the circumflex coronary artery and left anterior descending artery. REVIEW OF SYSTEMS: At the time of my exam: CONSTITUTIONAL: Denies fever or chills. HEENT: Denies blurred vision, vision changes, or eye pain. Denies hemoptysis CARDIOVASCULAR: Denies chest pain. Denies orthopnea. Denies PND. Denies palpitations RESPIRATORY: Reports shortness of breath. GASTROINTESTINAL: Denies abdominal pain. Denies nausea or vomiting. HEMATOLOGIC: Denies bleeding disorders. GENITOURINARY: Denies any blood in urine. SKIN: Denies pruitis. Denies rash. PHYSICAL EXAM: VITAL SIGNS: Reviewed. GENERAL: Well-developed in no acute distress. HEENT: Head is normocephalic. Pupils are equal, round. Sclerae anicteric. Mucous membranes of the mouth are moist. Neck supple. LUNGS: Respirations even and unlabored. Lungs are clear to auscultation bilaterally HEART: Irregular rate and rhythm. S1 and S2 heard. Systolic murmur noted. ABDOMEN: Soft. Nondistended. Nontender. EXTREMITIES: Normal range of motion. No clubbing or cyanosis. Peripheral pulses intact. 2+ bilateral lower extremity edema NEUROLOGIC: Awake and alert. Oriented x 3. ASSESSMENT: Shortness of breath Acute on chronic heart failure with preserved EF Elevated troponin, type II MS secondary to oxygen supply and demand mismatch, no evidence of acute coronary syndrome Severe pulmonary hypertension COPD Chronic hypoxic respiratory failure, on home O2 Permanent atrial fibrillation Sick sinus syndrome with biventricular pacemaker implantation, [employer] Coronary artery disease with previous stenting of the RCA Hypertension Hyperlipidemia History of A-fib ablation, x 2 PLAN: No need to repeat echocardiogram as this was performed in March of this year Continue IV Lasix 40 mg every 12 hours Daily weights, accurate intake and output, and monitoring of kidney function Resume home cardiac medications Add Farxiga 10 mg daily Discontinue IV heparin Resume Eliquis 5 mg twice a day Further recommendations pending patient course Nurse practitioner note has been reviewed by physician. Signing provider agrees with the documented findings, assessment, and plan of care documented by DIRECTOR EDUCATION as a scribe. Past Medical History Past Medical History: Atrial Fibrillation, Asthma, Coronary Artery Disease (CAD), Cancer, Heart Failure, COPD, Eye Disorder, Hearing Disorder / Deafness, Myocardial Infarction (MS), Osteoarthritis (OA), Pneumonia, Thyroid Disorder Additional Past Medical History / Comment(s): See Dr Trimble's H&P, Gout, hiatal hernia, Macular Degeneration, Skin Cancer, degenerative disc disease, osteoporosis. UTI 07/01/19. Last Myocardial Infarction Date:: 2011 History of Any Multi-Drug Resistant Organisms: None Reported Past Surgical History: Cardiac Ablation, Cholecystectomy, Heart Catheterization With Stent, Hysterectomy, Orthopedic Surgery, Pacemaker, Tonsillectomy Additional Past Surgical History / Comment(s): Right shoulder surgery, left wrist surgery. Thyroid Nodule removed, sylvia Cataracts, LOOP RECORDER-11/23/17; CHRIO ABLATION 03/08/18 WITH CARDIOVERSION Past Anesthesia/Blood Transfusion Reactions: No Reported Reaction Date of Last Stent Placement:: 2011 Type of Cardiac Device: Permanent Pacemaker Device Placement Date:: 07/2019 Past Psychological History: No Psychological Hx Reported Smoking Status: Former smoker Past Alcohol Use History: None Reported Additional Past Alcohol Use History / Comment(s): started smoking at age 15(1961) and quit 2006, smoked 2ppd Past Drug Use History: None Reported - Past Family History Mother Family Medical History: Cancer, Congestive Heart Failure (CHF), Myocardial Infarction (MS), Pneumonia, Pulmonary Embolus Additional Family Medical History / Comment(s): breast CA Father Family Medical History: CVA/TIA, Myocardial Infarction (MS) Medications and Allergies Home Medications Medication Instructions Recorded Confirmed Type Vit C/E/Zn/Coppr/Lutein/Zeaxan 1 cap PO BID 03/02/15 07/13/23 History [Preservision Areds 2 Softgel] Atorvastatin [Lipitor] 40 mg PO HS #30 tab 03/04/15 07/13/23 Rx allopurinoL [Zyloprim] 100 mg PO DAILY 10/22/18 07/13/23 History Fluticasone/Umeclidin/Vilanter 1 puff INHALATION RT-DAILY 07/01/19 07/13/23 History [John Ellipta 100-62.5-25] Aspirin [[place] Aspirin EC] 81 mg PO DAILY 08/09/19 07/13/23 History Cholecalciferol [Vitamin D3 (25 25 mcg PO MOWEFR 05/23/20 07/13/23 History Mcg = 1000 Iu)] Ipratropium-Albuterol Nebulize 3 ml INHALATION RT-QID 10/28/21 07/13/23 History [Duoneb 0.5 mg-3 mg/3 ml Soln] Apixaban [Eliquis] 5 mg PO BID 04/09/23 07/13/23 History Metoprolol Succinate (ER) [Toprol 100 mg PO DAILY 04/09/23 07/13/23 History XL] Sodium Bicarbonate 325 mg PO BID 04/09/23 07/13/23 History calcitrioL 0.25 mcg PO MOWEFR 04/09/23 07/13/23 History guaiFENesin [Mucinex] 600 mg PO BID 04/09/23 07/13/23 History Albuterol Sulfate [Ventolin HFA] 2 puff INHALATION RT-QID PRN 7 04/13/23 07/13/23 Rx Days #1 each Furosemide [Lasix] 40 mg PO BID@0900,1600 #60 tab 04/13/23 07/13/23 Rx Levothyroxine Sodium [Synthroid] 50 mcg PO DAILY 07/13/23 07/13/23 History Magnesium Oxide [Magox 400] 400 mg PO DAILY 07/13/23 07/13/23 History Allergies Allergy/AdvReac Type Severity Reaction Status Date / Time codeine Allergy Itching Verified 07/13/23 16:16 Physical Exam Vitals: Vital Signs Temp Pulse Pulse Resp BP BP Pulse Ox 07/14/23 08:48 97.5 F L 64 18 123/71 96 07/14/23 07:53 69 07/14/23 07:46 96 07/14/23 07:44 72 07/14/23 04:25 83 20 137/73 93 L 07/14/23 02:04 71 20 07/13/23 22:55 97.7 F 81 20 102/64 97 07/13/23 21:00 61 22 07/13/23 20:24 61 20 123/69 97 07/13/23 19:31 69 07/13/23 19:24 70 07/13/23 18:12 98.2 F 68 21 136/70 90 L 07/13/23 17:51 98.2 F 68 17 136/70 90 L 07/13/23 17:17 97.8 F 46 L 24 138/65 96 07/13/23 17:03 62 22 97 07/13/23 16:59 60 07/13/23 16:49 76 07/13/23 16:45 52 L 24 142/62 93 L 07/13/23 16:20 97.8 F 41 L 24 126/67 94 L 07/13/23 15:18 62 21 129/69 95 07/13/23 14:20 64 24 96 07/13/23 14:18 64 16 07/13/23 14:10 69 16 07/13/23 14:00 99.2 F 80 26 H 165/75 95 Intake and Output 07/13/23 07/14/23 07/14/23 22:59 06:59 14:59 Intake Total 10 560.011 Output Total 1000 Balance 10 -439.989 Intake: IV 10 Invasive Line 1 10 Intake, IV Titration 80.011 Amount Heparin Sod,Pork in 0.45% 80.011 NaCl 25,000 unit In 0.45 % NaCl 1 250ml.bag @ 12 UNITS/KG/HR 8.437 mls/hr IV .Q24H [facility] Rx#: [id number] Oral 480 Output: Urine 1000 Other: Voiding Method Toilet Toilet # Voids 1 Weight 70.307 kg 74.1 kg Results 07/14/23 03:49 07/14/23 03:49 Cardiac Enzymes 07/13/23 07/13/23 07/13/23 Range/Units 14:12 14:12 18:03 AST 47 H (14-36) U/L Troponin I 0.037 H* 0.050 H* (0.000-0.034) ng/mL 07/14/23 Range/Units 03:49 AST 29 (14-36) U/L Troponin I (0.000-0.034) ng/mL Coagulation 07/13/23 07/14/23 Range/Units 14:12 03:49 PT 11.0 (10.0-12.5) sec APTT 27.7 40.8 H (22.0-30.0) sec CBC 07/13/23 07/14/23 Range/Units 14:12 03:49 WBC 8.5 5.0 (3.8-10.6) k/uL RBC 4.05 3.95 (3.80-5.40) m/uL Hgb 11.4 10.4 L (11.4-16.0) gm/dL Hct 34.9 34.2 (34.0-46.0) % Plt Count 105 L 114 L (150-450) k/uL Comprehensive Metabolic Panel 07/13/23 07/14/23 Range/Units 14:12 03:49 Sodium 134 L 134 L (137-145) mmol/L Potassium 4.2 4.1 (3.5-5.1) mmol/L Chloride 106 107 (98-107) mmol/L Carbon Dioxide 22 20 L (22-30) mmol/L BUN 32 H 39 H (7-17) mg/dL Creatinine 1.02 1.23 H (0.52-1.04) mg/dL Glucose 101 H 138 H (74-99) mg/dL Calcium 8.8 8.6 (8.4-10.2) mg/dL AST 47 H 29 (14-36) U/L ALT 24 21 (4-34) U/L Alkaline Phosphatase 111 91 (38-126) U/L Total Protein 6.3 5.5 L (6.3-8.2) g/dL Albumin 3.5 3.0 L (3.5-5.0) g/dL Current Medications Generic Name Dose Route Start Last Admin Trade Name Freq PRN Reason Stop Dose Admin Albuterol/Ipratropium 3 ml 07/13/23 20:00 07/14/23 07:44 Ipratropium-Albuterol 3 Ml Neb INHALATION 3 ml RT-QID [facility]AN Administration Aspirin 81 mg 07/14/23 09:00 07/14/23 08:54 Aspirin 81 Mg PO 81 mg DAILY MILAN Administration Atorvastatin Calcium 40 mg 07/13/23 21:00 07/13/23 21:01 Atorvastatin 40 Mg Tab PO 40 mg HS MILAN Administration Calcitriol 0.25 mcg 07/14/23 09:00 07/14/23 08:54 Calcitriol 0.25 Mcg Cap PO 0.25 mcg MoWeFr@0900 MILAN Administration Cholecalciferol 25 mcg 07/14/23 09:00 07/14/23 08:54 Cholecalciferol 25 Mcg (1000 Iu) Tablet PO 25 mcg MoWeFr@0900 MILAN Administration Furosemide 40 mg 07/13/23 21:00 07/14/23 08:54 Furosemide 10 Mg/Ml 4 Ml Vial IV 40 mg Q12HR MILAN Administration Sodium Chloride 1,000 mls @ 10 mls/hr 07/13/23 16:45 07/13/23 16:41 Saline 0.9% IV 75 mls/hr .Q24H [facility] Administration Heparin Sodium/Sodium Chloride 250 mls @ 8.437 mls/hr 07/13/23 20:45 07/14/23 06:32 25,000 unit/ Sodium Chloride IV 14 units/kg/hr .Q24H [facility] 9.843 mls/hr Titration Protocol 12 UNITS/KG/HR Levothyroxine Sodium 50 mcg 07/14/23 06:30 07/14/23 06:22 Levothyroxine 50 Mcg Tab PO 50 mcg DAILY@0630 MILAN Administration Metoprolol Succinate 50 mg 07/13/23 20:15 07/14/23 08:54 Metoprolol Succinate (Er) 50 Mg Tab.Er.24h PO 50 mg DAILY MILAN Administration Morphine Sulfate 4 mg 07/13/23 16:33 Morphine Sulfate 4 Mg/Ml Syringe IV Q4HR PRN Severe Pain (Scale 7 to 10) Naloxone HCl 0.2 mg 07/13/23 16:33 Naloxone 0.4 Mg/Ml 1 Ml Vial IV Q2M PRN Opioid Reversal Ondansetron HCl 4 mg 07/13/23 16:33 Ondansetron 4 Mg/2 Ml Vial IVP Q8HR PRN Nausea And Vomiting Intake and Output 07/13/23 07/14/23 07/14/23 22:59 06:59 14:59 Intake Total 10 560.011 Output Total 1000 Balance 10 -439.989 Intake: IV 10 Invasive Line 1 10 Intake, IV Titration 80.011 Amount Heparin Sod,Pork in 0.45% 80.011 NaCl 25,000 unit In 0.45 % NaCl 1 250ml.bag @ 12 UNITS/KG/HR 8.437 mls/hr IV .Q24H [facility] Rx#: [id number] Oral 480 Output: Urine 1000 Other: Voiding Method Toilet Toilet # Voids 1 Weight 70.307 kg 74.1 kg 07/14/23 03:49 07/14/23 03:49
[2023-07-14] MEDS: ACETAMINOPHEN TAB 325 MG TAB PO PRN (14:07)
--- NOTE | 2023-07-14 14:37 | P.PN ---
Subjective Progress Note Date: 07/14/23 This is a 77-year-old female patient was hospitalized for worsening shortness of breath. This is recurrent hospitalization for decompensated heart failure. The patient came into the hospital because of worsening shortness of breath. She is on O2 at 2 L/min nasal cannula and her oxygen requirements were gradually going up and the symptoms the patient noted increased lower extremity edema. Denied having any chest pain. Based on that she came into the hospital. Chest x-ray was consistent with CHF. The patient also has a pacemaker pocket over the left anterior chest area. The hilum is prominent and full bilaterally. As far as his blood work, the patient demonstrated an elevated proBNP level of 15,900. Troponin 0.03 and 0.05 respectively x 2. Electrolytes are essentially within normal limits with a BUN of 32 and a creatinine of 1.02. Hemoglobin is at 11.4. EKG showed a paced rhythm. At this point in time, the patient has already received a dose of Lasix in the emergency department. Denies having any chest pain. Past medical history is positive for a recent stroke exacerbation that occurred in March 2023 for an acute RSV infection. She is known to have severe COPD, chronic hypoxic nadege failure maintain O2 at 2 L, chronic A-fib, hypothyroidism, coronary artery disease and previous history of coronary stenting. She does have degenerative arthritis and previous history of skin cancer and osteoporosis. On today's evaluation of 07/14/2023, the patient is being seen for a follow-up. The patient was seen in consultation yesterday for acute on top of chronic hypoxic respiratory failure and decompensated heart failure. The patient is feeling much better on today's evaluation. The proBNP level was elevated and the patient is currently on Lasix 40 mg IV every 12 hours. Fluid balance has been negative at least half a liter over the past 24 hours. BUN is at 39 with a creatinine of 1.2 and a sodium level is 134 with a potassium level of 4.1. WBC count is 5 and the patient's hemoglobin is at 10.4. Repeat chest x-ray was done today and the chest x-ray is essentially unchanged with cardiomegaly and pulm vessel congestion and the patient would benefit from additional diuretics. Her condition is stable and clinically patient is feeling improved compared to yeste rday. Objective - Vital Signs Vital signs: Vital Signs Temp 97.5 F L 07/14/23 08:48 Pulse 64 07/14/23 08:48 Resp 18 07/14/23 08:48 BP 123/71 07/14/23 08:48 Pulse Ox 96 07/14/23 08:48 FiO2 Intake & Output 07/13/23 07/14/23 07/14/23 18:59 06:59 18:59 Intake Total 570.011 240 Output Total 1000 200 Balance -429.989 40 Weight 70.307 kg 74.1 kg Intake: IV 10 Invasive Line 1 10 Intake, IV Titration 80.011 Amount Heparin Sod,Pork in 0.45% 80.011 NaCl 25,000 unit In 0.45 % NaCl 1 250ml.bag @ 12 UNITS/KG/HR 8.437 mls/hr IV .Q24H [facility] Rx#: [id number] Oral 480 240 Output: Urine 1000 200 Other: Voiding Method Toilet Toilet # Voids 1 - Exam GENERAL EXAM: Alert, pleasant 77-year-old female, seen up at the bedside, currently on 2 L of oxygen by nasal cannula,, comfortable HEAD: Normocephalic and atraumatic EYES: Normal reaction of pupils, equal size. NOSE: Clear with pink turbinates. THROAT: No erythema or exudates. NECK: No masses, no JVD. CHEST: No chest wall deformity. LUNGS: Equal air entry with expiratory wheezes heard throughout. No conversational dyspnea. CVS: S1 and S2 normal with no audible murmur, regular rhythm. No extra heart sounds pacemaker pocket over the left anterior chest area. ABDOMEN: No hepatosplenomegaly, active bowel sounds, no guarding or rigidity. SPINE: No scoliosis or deformity SKIN: No rashes CENTRAL NERVOUS SYSTEM: No focal deficits, tone is normal in all 4 extremities. EXTREMITIES: There is bilateral lower extremity mild nonpitting edema with, and the patient has a. No clubbing, or cyanosis. Peripheral pulses are intact. - Labs CBC & Chem 7: 07/14/23 03:49 07/14/23 03:49 Labs: Abnormal Lab Results - Last 24 Hours (Table) 07/13/23 07/13/23 07/13/23 Range/Units 14:12 14:12 14:12 Hgb (11.4-16.0) gm/dL MCHC (31.0-37.0) g/dL RDW 17.6 H (11.5-15.5) % Plt Count 105 L (150-450) k/uL Lymphocytes # (1.0-4.8) k/uL APTT (22.0-30.0) sec Sodium 134 L (137-145) mmol/L Carbon Dioxide (22-30) mmol/L BUN 32 H (7-17) mg/dL Creatinine (0.52-1.04) mg/dL Glucose 101 H (74-99) mg/dL Total Bilirubin 1.7 H (0.2-1.3) mg/dL AST 47 H (14-36) U/L Troponin I 0.037 H* (0.000-0.034) ng/mL Total Protein (6.3-8.2) g/dL Albumin (3.5-5.0) g/dL 07/13/23 07/14/23 07/14/23 Range/Units 18:03 03:49 03:49 Hgb 10.4 L (11.4-16.0) gm/dL MCHC 30.4 L (31.0-37.0) g/dL RDW 17.6 H (11.5-15.5) % Plt Count 114 L (150-450) k/uL Lymphocytes # 0.5 L (1.0-4.8) k/uL APTT (22.0-30.0) sec Sodium 134 L (137-145) mmol/L Carbon Dioxide 20 L (22-30) mmol/L BUN 39 H (7-17) mg/dL Creatinine 1.23 H (0.52-1.04) mg/dL Glucose 138 H (74-99) mg/dL Total Bilirubin (0.2-1.3) mg/dL AST (14-36) U/L Troponin I 0.050 H* (0.000-0.034) ng/mL Total Protein 5.5 L (6.3-8.2) g/dL Albumin 3.0 L (3.5-5.0) g/dL 07/14/23 Range/Units 03:49 Hgb (11.4-16.0) gm/dL MCHC (31.0-37.0) g/dL RDW (11.5-15.5) % Plt Count (150-450) k/uL Lymphocytes # (1.0-4.8) k/uL APTT 40.8 H (22.0-30.0) sec Sodium (137-145) mmol/L Carbon Dioxide (22-30) mmol/L BUN (7-17) mg/dL Creatinine (0.52-1.04) mg/dL Glucose (74-99) mg/dL Total Bilirubin (0.2-1.3) mg/dL AST (14-36) U/L Troponin I (0.000-0.034) ng/mL Total Protein (6.3-8.2) g/dL Albumin (3.5-5.0) g/dL Assessment and Plan Plan: Acute on chronic hypoxemic respiratory failure, currently on 4 L/min nasal cannula, and the decompensated respiratory status is related to CHF as the patient has signs of fluid overload, pulmonary edema and she has an elevated pro BNP level. Limited troponin leak, nonspecific, without any acute EKG changes. EKG is showing a paced rhythm Your COPD, currently inactive and stable Acute RSV infection with secondary COPD exacerbation has occurred back in March 2023 Nonspecific mediastinal lymphadenopathy without any significant metabolic activity based on the PET scan that was done in November 2021 Chronic hypoxemic respiratory failure, normally maintained on 2 L at bedtime, secondary to above Moderate pulmonary hypertension secondary to above Coronary artery disease, with history of previous PCI/stent History of sick sinus syndrome and chronic atrial fibrillation, status post permanent biventricular pacemaker implantation, and chronically anticoagulated on Eliquis Hypothyroidism Obesity, with a BMI 33.6 kg/m Remote ex smoker Plan: Repeat chest x-ray still showing CHF with pulm vessel congestion and cardiomegaly. The patient was kept on IV fluids. Clinically improved compared to yesterday Titrate oxygen flow to maintain saturation above 90% Wean down FiO2 as tolerated currently on 2 L of oxygen by nasal cannula Continue the patient on Lasix 40 mg IV every 12 hours Continue anticoagulation with Eliquis Resume metoprolol Repeat echocardiogram, most recent echocardiogram was done and March 2023 showed a preserved LV function with an ejection fraction of 60 to 65%, severe pulm hypertension with a PA pressure of 74 and moderate degree of mitral regurgitation. Continue bronchodilators, no need for antibiotics. No need for steroids Will continue to follow
[2023-07-14] MEDS ORDERED: HEPARIN SODIUM,PORCINE 5,000 UNIT/ML 1 ML VIAL SQ SCH (16:00)
[2023-07-15 07:50] LABS: Anisocytosis Slight; Basophils % (A) 0 %; Eosinophils # (A) 0.2 k/uL (0-0.7); Eosinophils % (A) 2 %; HGB 10.7 gm/dL (11.4-16.0); Hypochromasia Slight; Lymphocytes # (A) 1.7 k/uL (1.0-4.8); Lymphocytes % (A) 17 %; MCH 26.4 pg (25.0-35.0); MCHC 30.5 g/dL (31.0-37.0); MCV 86.6 fL (80.0-100.0); Mean Platelet Volume 8.9; Monocytes # (A) 0.5 k/uL (0-1.0); Monocytes % (A) 5 %; Neutrophils # (A) 7.5 k/uL (1.3-7.7); Neutrophils % (A) 73 %; Platelet Count 133 k/uL (150-450); RBC 4.04 m/uL (3.80-5.40); RDW 17.9 % (11.5-15.5); WBC 10.2 k/uL (3.8-10.6)
[2023-07-15 08:02] LABS: African American GFR (CKD) 47 (>60 ml/min/1.73 sqM); Anion Gap 9 mmol/L; Blood Urea Nitrogen 53 mg/dL (7-17); Calcium 9.2 mg/dL (8.4-10.2); Carbon Dioxide 19 mmol/L (22-30); Chloride 105 mmol/L (98-107); Glucose 86 mg/dL (74-99); Non-African American GFR(CKD) 41 (>60 ml/min/1.73 sqM); Potassium 4.1 mmol/L (3.5-5.1); Sodium 133 mmol/L (137-145)
[2023-07-15 08:09] LABS: NT-Pro-B-Type Natriuretic Pept 14300 pg/mL
[2023-07-15] MEDS: guaiFENesin-DM 600/30MG 1 EACH TAB.ER.12H PO SCH (11:27)
--- NOTE | 2023-07-15 11:43 | P.PN ---
Subjective HISTORY OF PRESENT ILLNESS: This is a 77-year-old female with a past medical history significant for COPD, permanent atrial fibrillation, A-fib ablation, x 2, sick sinus syndrome with biventricular pacemaker implantation, hypertension, hyperlipidemia, and coronary artery disease. Patient follows in the office with Dr. Flynn. We have been asked to see the patient in consultation for congestive heart failure. Patient examined at the bedside. Patient presented to the hospital with a chief complaint of shortness of breath. The patient states her oxygen saturations at home are running in the 70s and 80s. She states that she uses oxygen at home at 2 L as needed but recently has been wearing it 03/10. She also reports that she had to turn up her oxygen to 3 L at home. She states that she was wheezing at home but that has since resolved. She continues to report shortness of breath although improved at the time of examination. She denies any chest pain or pressure. Vital signs are stable. The patient was found to be in acute CHF and was started on IV diuretics. DIAGNOSTICS: - EKG reveals ventricular paced rhythm with underlying atrial fibrillation. - Chest xray cardiomegaly and mild pulmonary vascular congestion. - Laboratory data: WBC 5.0. Hemoglobin 10.4. Platelet count 114. D-dimer 0.43. Sodium 134. Potassium 4.1. BUN 39. Creatinine 1.23. proBNP 15,900. Troponin 0.037. 0.050. - Current home cardiac medications include Eliquis 5 mg twice a day, Lipitor 40 mg at night, Lasix 40 mg twice a day, metoprolol succinate 100 mg daily. - Most recent echocardiogram obtained in March 2023 revealed ejection fraction 60 to 65%, severe pulmonary hypertension, RVSP 74 mmHg, moderate mitral regurgitation, severe tricuspid regurgitation - Patient underwent Lexiscan stress test in September 2020 which revealed fixed mid a nterior wall defect secondary to soft tissue attenuation - Cardiac catheterization history: August 2017 revealing patent stent in the RCA. Mild nonobstructive disease involving the circumflex coronary artery and left anterior descending artery. 07/15/2023 Patient examined this morning. Patient is sitting up in the chair. She reports improvement in her shortness of breath. She reports that her hands feel less swollen today. She continues to have lower extremity edema. She remains on IV Lasix. Kidney function this morning remains stable at 1.26. PHYSICAL EXAM: VITAL SIGNS: Reviewed. GENERAL: Well-developed in no acute distress. HEENT: Head is normocephalic. Pupils are equal, round. Sclerae anicteric. Mucous membranes of the mouth are moist. Neck supple. LUNGS: Respirations even and unlabored. Lungs with a few bibasilar crackles and mild expiratory wheezing. HEART: Irregular rate and rhythm. S1 and S2 heard. Systolic murmur noted. ABDOMEN: Soft. Nondistended. Nontender. EXTREMITIES: Normal range of motion. No clubbing or cyanosis. Peripheral pulses intact. 2+ bilateral lower extremity edema NEUROLOGIC: Awake and alert. Oriented x 3. ASSESSMENT: Shortness of breath Acute on chronic heart failure with preserved EF Elevated troponin, type II AL secondary to oxygen supply and demand mismatch, no evidence of acute coronary syndrome Severe pulmonary hypertension COPD Chronic hypoxic respiratory failure, on home O2 Permanent atrial fibrillation Sick sinus syndrome with biventricular pacemaker implantation, [employer] Coronary artery disease with previous stenting of the RCA Hypertension Hyperlipidemia History of A-fib ablation, x 2 PLAN: Continue IV Lasix 40 mg every 12 hours Daily weights, accurate intake and output, and monitoring of kidney function Continue additional cardiac medications Further recommendations pending patient course Nurse practitioner note has been reviewed by physician. Signing provider agrees with the documented findings, assessment, and plan of care documented by RENEWALS SPECIALIST as a scribe. Objective - Vital Signs Vital signs: Vital Signs Temp 97.7 F 07/15/23 08:18 Pulse 64 07/15/23 11:26 Resp 20 07/15/23 11:26 BP 118/73 07/15/23 11:26 Pulse Ox 96 07/15/23 11:26 FiO2 Intake & Output 07/14/23 07/15/23 07/15/23 18:59 06:59 18:59 Intake Total 960 10 240 Output Total 400 1200 300 Balance 560 -1190 -60 Weight 75.2 kg Intake: IV 10 Invasive Line 1 10 Oral 960 240 Output: Urine 400 1200 300 Other: Voiding Method Toilet Toilet Toilet # Voids 1 - Labs CBC & Chem 7: 07/15/23 06:53 07/15/23 06:53 Labs: Abnormal Lab Results - Last 24 Hours (Table) 07/15/23 07/15/23 Range/Units 06:53 06:53 Hgb 10.7 L (11.4-16.0) gm/dL MCHC 30.5 L (31.0-37.0) g/dL RDW 17.9 H (11.5-15.5) % Plt Count 133 L (150-450) k/uL Sodium 133 L (137-145) mmol/L Carbon Dioxide 19 L (22-30) mmol/L BUN 53 H (7-17) mg/dL Creatinine 1.26 H (0.52-1.04) mg/dL
--- NOTE | 2023-07-15 13:35 | P.PN ---
Subjective Progress Note Date: 07/15/23 * 77 years old female with past medical history of COPD and heart disease and she follow-up with Dr. Currie and chronic kidney disease and bicytopenia. * Presents because of worsening shortness of breath for the last 3 to 4 days associated with cough and yellow phlegmHowever her oxygen dropped at home and usually she wears 2 L of oxygen bumped up to 3 L at home * CBC showed mild anemia 10.4, liver enzymes not elevated * Platelet count 114 which is low * Creatinine slightly up 1.23. Sodium is 134 stable * D-dimer is -0.43 * Troponin is elevated 0.0357 and 0.050. * [place] 29232 * Chest x-ray showing cardiomegaly with mild pulmonary vascular congestion * EKG showing ventricular paced rhythm Patient started on heparin drip and IV Lasix 40 mg twice daily * 07/15/23: Patient seen and evaluated at bedside, appreciate input from cardiology, reviewed, WBC 10.2, hemoglobin 10.7, platelet count 133. Serum chemistry shows sodium 133, creatinine 1.26 initial troponin 0.050, N-terminal proBNP 91380 EXAM GENERAL: The patient is alert and oriented x3, ill appearance, pale appearance HEENT: Pupils are round and equally reacting to light. EOMI. CARDIOVASCULAR: S1 and S2 present. No murmurs, rubs, or gallops. PULMONARY: Chest is clear to auscultation, no wheezing , no crackles. Patient is tachypneic ABDOMEN: Soft, nontender, nondistended, normoactive bowel sounds. No palpable organomegaly. MUSCULOSKELETAL: No joint swelling or deformity. EXTREMITIES: No cyanosis, clubbing, or pedal edema. NEUROLOGICAL: Gross neurological examination did not reveal any focal deficits. SKIN: No rashes. no petechiae. Assesement * Acute on chronic hypoxemic respiratory failure secondary to CHF exacerbation * History of COPD not in exacerbation * History of atrial fibrillation s/p pacemaker in place * Chronic hypoxemic respiratory failure on baseline 2 L of oxygen, history of pulmonary hypertension moderate * Coronary artery disease with history of PCI and elevated troponin * Acute on chronic congestive heart failure diastolic dysfunction preserved ejection fraction * Acute kidney injury * Hypertension Plan * In regards to hypoxemic respiratory failure, patient remains on 3 L of oxygen continue patient on IV Lasix, monitor intake and output cardiology following * CHF exacerbation seen by pulmonary medicine as well, plan to wean off oxygen as tolerated, continue diuresis secondary to history of pulmonary hypertension. * In regards to history of atrial fibrillation continue patient on metoprolol continue aspirin, Eliquis * Acute kidney injury creatinine 1.26 continue to monitor renal function while on diuresis Objective - Vital Signs Vital signs: Vital Signs Temp 97.7 F 07/15/23 08:18 Pulse 82 07/15/23 09:37 Resp 18 07/15/23 09:37 BP 125/82 07/15/23 08:18 Pulse Ox 96 07/15/23 09:27 FiO2 Intake & Output 07/14/23 07/15/23 07/15/23 18:59 06:59 18:59 Intake Total 960 10 240 Output Total 400 1200 Balance 560 -1190 240 Weight 75.2 kg Intake: IV 10 Invasive Line 1 10 Oral 960 240 Output: Urine 400 1200 Other: Voiding Method Toilet Toilet Toilet # Voids 1 - Labs CBC & Chem 7: 07/15/23 06:53 07/15/23 06:53 Labs: Abnormal Lab Results - Last 24 Hours (Table) 07/15/23 07/15/23 Range/Units 06:53 06:53 Hgb 10.7 L (11.4-16.0) gm/dL MCHC 30.5 L (31.0-37.0) g/dL RDW 17.9 H (11.5-15.5) % Plt Count 133 L (150-450) k/uL Sodium 133 L (137-145) mmol/L Carbon Dioxide 19 L (22-30) mmol/L BUN 53 H (7-17) mg/dL Creatinine 1.26 H (0.52-1.04) mg/dL
--- NOTE | 2023-07-15 13:57 | P.PN ---
Subjective Progress Note Date: 07/15/23 This is a 77-year-old female patient was hospitalized for worsening shortness of breath. This is recurrent hospitalization for decompensated heart failure. The patient came into the hospital because of worsening shortness of breath. She is on O2 at 2 L/min nasal cannula and her oxygen requirements were gradually going up and the symptoms the patient noted increased lower extremity edema. Denied having any chest pain. Based on that she came into the hospital. Chest x-ray was consistent with CHF. The patient also has a pacemaker pocket over the left anterior chest area. The hilum is prominent and full bilaterally. As far as his blood work, the patient demonstrated an elevated proBNP level of 15,900. Troponin 0.03 and 0.05 respectively x 2. Electrolytes are essentially within normal limits with a BUN of 32 and a creatinine of 1.02. Hemoglobin is at 11.4. EKG showed a paced rhythm. At this point in time, the patient has already received a dose of Lasix in the emergency department. Denies having any chest pain. Past medical history is positive for a recent stroke exacerbation that occurred in March 2023 for an acute RSV infection. She is known to have severe COPD, chronic hypoxic nadege failure maintain O2 at 2 L, chronic A-fib, hypothyroidism, coronary artery disease and previous history of coronary stenting. She does have degenerative arthritis and previous history of skin cancer and osteoporosis. On today's evaluation of 07/14/2023, the patient is being seen for a follow-up. The patient was seen in consultation yesterday for acute on top of chronic hypoxic respiratory failure and decompensated heart failure. The patient is feeling much better on today's evaluation. The proBNP level was elevated and the patient is currently on Lasix 40 mg IV every 12 hours. Fluid balance has been negative at least half a liter over the past 24 hours. BUN is at 39 with a creatinine of 1.2 and a sodium level is 134 with a potassium level of 4.1. WBC count is 5 and the patient's hemoglobin is at 10.4. Repeat chest x-ray was done today and the chest x-ray is essentially unchanged with cardiomegaly and pulm vessel congestion and the patient would benefit from additional diuretics. Her condition is stable and clinically patient is feeling improved compared to yeste rday. On 07/15/2023, the patient is being seen for a follow-up. The patient is doing well. Denies having any major improvement since yesterday. The patient is responding well to diuretics. The patient is negative fluid balance of at least 630 cc over the past 24 hours. BUN is 53 with a creatinine of 1.2 and a sodium levels of 133, WBC count of 10.0 with a hemoglobin of 10.7. No major edema lo wer extremities. No other new complaints otherwise for now. Medication remains unchanged. Objective - Vital Signs Vital signs: Vital Signs Temp 97.7 F 07/15/23 08:18 Pulse 82 07/15/23 09:37 Resp 18 07/15/23 09:37 BP 125/82 07/15/23 08:18 Pulse Ox 96 07/15/23 09:27 FiO2 Intake & Output 07/14/23 07/15/23 07/15/23 18:59 06:59 18:59 Intake Total 960 10 240 Output Total 400 1200 300 Balance 560 -1190 -60 Weight 75.2 kg Intake: IV 10 Invasive Line 1 10 Oral 960 240 Output: Urine 400 1200 300 Other: Voiding Method Toilet Toilet Toilet # Voids 1 - Exam GENERAL EXAM: Alert, pleasant 77-year-old female, seen up at the bedside, currently on 2 L of oxygen by nasal cannula,, comfortable HEAD: Normocephalic and atraumatic EYES: Normal reaction of pupils, equal size. NOSE: Clear with pink turbinates. THROAT: No erythema or exudates. NECK: No masses, no JVD. CHEST: No chest wall deformity. LUNGS: Equal air entry with expiratory wheezes heard throughout. No conversational dyspnea. CVS: S1 and S2 normal with no audible murmur, regular rhythm. No extra heart sounds pacemaker pocket over the left anterior chest area. ABDOMEN: No hepatosplenomegaly, active bowel sounds, no guarding or rigidity. SPINE: No scoliosis or deformity SKIN: No rashes CENTRAL NERVOUS SYSTEM: No focal deficits, tone is normal in all 4 extremities. EXTREMITIES: There is bilateral lower extremity mild nonpitting edema with, and the patient has a. No clubbing, or cyanosis. Peripheral pulses are intact. - Labs CBC & Chem 7: 07/15/23 06:53 07/15/23 06:53 Labs: Abnormal Lab Results - Last 24 Hours (Table) 05/04/24 05/04/24 Range/Units 06:53 06:53 Hgb 10.7 L (11.4-16.0) gm/dL MCHC 30.5 L (31.0-37.0) g/dL RDW 17.9 H (11.5-15.5) % Plt Count 133 L (150-450) k/uL Sodium 133 L (137-145) mmol/L Carbon Dioxide 19 L (22-30) mmol/L BUN 53 H (7-17) mg/dL Creatinine 1.26 H (0.52-1.04) mg/dL Assessment and Plan Plan: Acute on chronic hypoxemic respiratory failure, currently on 4 L/min nasal cannula, and the decompensated respiratory status is related to CHF as the patient has signs of fluid overload, pulmonary edema and she has an elevated pro BNP level. Limited troponin leak, nonspecific, without any acute EKG changes. EKG is showing a paced rhythm Your COPD, currently inactive and stable Acute RSV infection with secondary COPD exacerbation has occurred back in March 2023 Nonspecific mediastinal lymphadenopathy without any significant metabolic activity based on the PET scan that was done in November 2021 Chronic hypoxemic respiratory failure, normally maintained on 2 L at bedtime, secondary to above Moderate pulmonary hypertension secondary to above Coronary artery disease, with history of previous PCI/stent History of sick sinus syndrome and chronic atrial fibrillation, status post permanent biventricular pacemaker implantation, and chronically anticoagulated on Eliquis Hypothyroidism Obesity, with a BMI 33.6 kg/m Remote ex smoker Plan: Continue same treatment Add Mucinex Repeat chest x-ray in a.m. Clinically improved slowly Titrate oxygen flow to maintain saturation above 90% Wean down FiO2 as tolerated currently on 2 L of oxygen by nasal cannula Continue the patient on Lasix 40 mg IV every 12 hours Continue anticoagulation with Eliquis Resume metoprolol Repeat echocardiogram, most recent echocardiogram was done and March 2023 showed a preserved LV function with an ejection fraction of 60 to 65%, severe pulm hypertension with a PA pressure of 74 and moderate degree of mitral regurgitation. Continue bronchodilators, no need for antibiotics. No need for steroids Will continue to follow
--- NOTE | 2023-07-16 06:40 | XR ---
EXAMINATION TYPE: XR chest 1V DATE OF EXAM: 07/16/2023 COMPARISON: 07/14/2023 HISTORY: CHF TECHNIQUE: Single frontal view of the chest is obtained. FINDINGS: There is been no change in the pulmonary vascular congestion and interstitial edema. There is no pneu mothorax or large pleural effusion. There is a 2-lead cardiac pacemaker. The osseous structures are intact IMPRESSION: No change in the acute cardiopulmonary disease most consistent with CHF.
[2023-07-16 07:35] LABS: Anisocytosis Slight; HCT 34.8 % (34.0-46.0); HGB 10.8 gm/dL (11.4-16.0); Hypochromasia Slight; MCH 26.8 pg (25.0-35.0); MCV 86.6 fL (80.0-100.0); Mean Platelet Volume 8.4; Platelet Count 138 k/uL (150-450); RBC 4.02 m/uL (3.80-5.40); RDW 17.8 % (11.5-15.5)
[2023-07-16 07:52] LABS: African American GFR (CKD) 44 (>60 ml/min/1.73 sqM); Anion Gap 10 mmol/L; Blood Urea Nitrogen 55 mg/dL (7-17); Calcium 8.9 mg/dL (8.4-10.2); Carbon Dioxide 22 mmol/L (22-30); Chloride 104 mmol/L (98-107); Glucose 78 mg/dL (74-99); Non-African American GFR(CKD) 38 (>60 ml/min/1.73 sqM); Potassium 3.9 mmol/L (3.5-5.1); Sodium 136 mmol/L (137-145)
--- NOTE | 2023-07-16 10:33 | P.PN ---
Subjective HISTORY OF PRESENT ILLNESS: This is a 77-year-old female with a past medical history significant for COPD, permanent atrial fibrillation, A-fib ablation, x 2, sick sinus syndrome with biventricular pacemaker implantation, hypertension, hyperlipidemia, and coronary artery disease. Patient follows in the office with Dr. Flynn. We have been asked to see the patient in consultation for congestive heart failure. Patient examined at the bedside. Patient presented to the hospital with a chief complaint of shortness of breath. The patient states her oxygen saturations at home are running in the 70s and 80s. She states that she uses oxygen at home at 2 L as needed but recently has been wearing it 03/10. She also reports that she had to turn up her oxygen to 3 L at home. She states that she was wheezing at home but that has since resolved. She continues to report shortness of breath although improved at the time of examination. She denies any chest pain or pressure. Vital signs are stable. The patient was found to be in acute CHF and was started on IV diuretics. DIAGNOSTICS: - EKG reveals ventricular paced rhythm with underlying atrial fibrillation. - Chest xray cardiomegaly and mild pulmonary vascular congestion. - Laboratory data: WBC 5.0. Hemoglobin 10.4. Platelet count 114. D-dimer 0.43. Sodium 134. Potassium 4.1. BUN 39. Creatinine 1.23. proBNP 15,900. Troponin 0.037. 0.050. - Current home cardiac medications include Eliquis 5 mg twice a day, Lipitor 40 mg at night, Lasix 40 mg twice a day, metoprolol succinate 100 mg daily. - Most recent echocardiogram obtained in March 2023 revealed ejection fraction 60 to 65%, severe pulmonary hypertension, RVSP 74 mmHg, moderate mitral regurgitation, severe tricuspid regurgitation - Patient underwent Lexiscan stress test in September 2020 which revealed fixed mid a nterior wall defect secondary to soft tissue attenuation - Cardiac catheterization history: August 2017 revealing patent stent in the RCA. Mild nonobstructive disease involving the circumflex coronary artery and left anterior descending artery. 07/15/2023 Patient examined this morning. Patient is sitting up in the chair. She reports improvement in her shortness of breath. She reports that her hands feel less swollen today. She continues to have lower extremity edema. She remains on IV Lasix. Kidney function this morning remains stable at 1.26. 07/16/2023 Patient examined this morning. She is sitting up in the chair. Patient states she had an episode of shortness of breath overnight. This morning she is currently receiving a breathing treatment. She states her breathing is overall improved. She currently remains on IV Lasix. Patient's blood pressures are mildly elevated this morning however they have been well-controlled overall during hospitalization so we will continue to monitor at this time with no changes to her medication regimen. If blood pressure remains elevated tomorrow, will consider adding a antihypertensive medication PHYSICAL EXAM: VITAL SIGNS: Reviewed. GENERAL: Well-developed in no acute distress. HEENT: Head is normocephalic. Pupils are equal, round. Sclerae anicteric. Mucous membranes of the mouth are moist. Neck supple. LUNGS: Respirations even and unlabored. Lungs with mild expiratory wheezing. HEART: Irregular rate and rhythm. S1 and S2 heard. Systolic murmur noted. ABDOMEN: Soft. Nondistended. Nontender. EXTREMITIES: Normal range of motion. No clubbing or cyanosis. Peripheral pulses intact. 1+ bilateral lower extremity edema NEUROLOGIC: Awake and alert. Oriented x 3. ASSESSMENT: Shortness of breath Acute on chronic heart failure with preserved EF Elevated troponin, type II ME secondary to oxygen supply and demand mismatch, no evidence of acute coronary syndrome Severe pulmonary hypertension COPD Chronic hypoxic respiratory failure, on home O2 Permanent atrial fibrillation Sick sinus syndrome with biventricular pacemaker implantation, [employer] Coronary artery disease with previous stenting of the RCA Hypertension Hyperlipidemia History of A-fib ablation, x 2 PLAN: Discontinue IV Lasix. Begin oral Lasix 40 mg twice a day Daily weights, accurate intake and output, and monitoring of kidney function Continue additional cardiac medications Patient's blood pressures are mildly elevated this morning however they have been well-controlled overall during hospitalization so we will continue to monitor at this time with no changes to her medication regimen. If blood pressure remains elevated tomorrow, will consider adding a antihypertensive medication Further recommendations pending patient course Nurse practitioner note has been reviewed by physician. Signing provider agrees with the documented findings, assessment, and plan of care documented by FR[employer] MACHINE OPERATOR as a scribe. Objective - Vital Signs Vital signs: Vital Signs Temp 98.2 F 07/16/23 08:26 Pulse 60 07/16/23 09:37 Resp 18 07/16/23 09:37 BP 148/72 07/16/23 08:26 Pulse Ox 99 07/16/23 09:25 FiO2 Intake & Output 07/15/23 07/16/23 07/16/23 18:59 06:59 18:59 Intake Total 720 10 Output Total 550 2150 100 Balance 170 -2140 -100 Weight 74.6 kg Intake: IV 10 Invasive Line 1 10 Oral 720 Output: Urine 550 2150 100 Other: Voiding Method Toilet Toilet Toilet # Voids 1 # Bowel Movements 1 - Labs CBC & Chem 7: 07/16/23 06:29 07/16/23 06:29 Labs: Abnormal Lab Results - Last 24 Hours (Table) 07/16/23 07/16/23 Range/Units 06:29 06:29 Hgb 10.8 L (11.4-16.0) gm/dL RDW 17.8 H (11.5-15.5) % Plt Count 138 L (150-450) k/uL Sodium 136 L (137-145) mmol/L BUN 55 H (7-17) mg/dL Creatinine 1.35 H (0.52-1.04) mg/dL
--- NOTE | 2023-07-16 12:09 | P.PN ---
Subjective Progress Note Date: 07/16/23 This is a 77-year-old female patient was hospitalized for worsening shortness of breath. This is recurrent hospitalization for decompensated heart failure. The patient came into the hospital because of worsening shortness of breath. She is on O2 at 2 L/min nasal cannula and her oxygen requirements were gradually going up and the symptoms the patient noted increased lower extremity edema. Denied having any chest pain. Based on that she came into the hospital. Chest x-ray was consistent with CHF. The patient also has a pacemaker pocket over the left anterior chest area. The hilum is prominent and full bilaterally. As far as his blood work, the patient demonstrated an elevated proBNP level of 15,900. Troponin 0.03 and 0.05 respectively x 2. Electrolytes are essentially within normal limits with a BUN of 32 and a creatinine of 1.02. Hemoglobin is at 11.4. EKG showed a paced rhythm. At this point in time, the patient has already received a dose of Lasix in the emergency department. Denies having any chest pain. Past medical history is positive for a recent stroke exacerbation that occurred in March 2023 for an acute RSV infection. She is known to have severe COPD, chronic hypoxic nadege failure maintain O2 at 2 L, chronic A-fib, hypothyroidism, coronary artery disease and previous history of coronary stenting. She does have degenerative arthritis and previous history of skin cancer and osteoporosis. On today's evaluation of 07/14/2023, the patient is being seen for a follow-up. The patient was seen in consultation yesterday for acute on top of chronic hypoxic respiratory failure and decompensated heart failure. The patient is feeling much better on today's evaluation. The proBNP level was elevated and the patient is currently on Lasix 40 mg IV every 12 hours. Fluid balance has been negative at least half a liter over the past 24 hours. BUN is at 39 with a creatinine of 1.2 and a sodium level is 134 with a potassium level of 4.1. WBC count is 5 and the patient's hemoglobin is at 10.4. Repeat chest x-ray was done today and the chest x-ray is essentially unchanged with cardiomegaly and pulm vessel congestion and the patient would benefit from additional diuretics. Her condition is stable and clinically patient is feeling improved compared to yeste rday. On 07/15/2023, the patient is being seen for a follow-up. The patient is doing well. Denies having any major improvement since yesterday. The patient is responding well to diuretics. The patient is negative fluid balance of at least 630 cc over the past 24 hours. BUN is 53 with a creatinine of 1.2 and a sodium levels of 133, WBC count of 10.0 with a hemoglobin of 10.7. No major edema lo wer extremities. No other new complaints otherwise for now. Medication remains unchanged. 07/16/2023, the patient is being seen for a follow-up. Patient is improving. The patient has diuresed effectively over the past 24 hours and the patient has been negative balance of around 1.9 L over the past 24 hours. BUN is 55 with a creatinine 1.3 and a sodium levels at 136. White cell count is at 8 with a hemoglobin of 10.8. The patient is still on 2 L of oxygen by nasal cannula with a pulse ox of 99%. No chest pain. He is ambulating. Denies having any new complaints. She remains on anticoagulation with Eliquis. She is also on aspirin and metoprolol. Lasix 40 mg p.o. twice a day. Chest x-ray shows improvement of volume status. Objective - Vital Signs Vital signs: Vital Signs Temp 98.2 F 07/16/23 08:26 Pulse 60 07/16/23 09:37 Resp 18 07/16/23 09:37 BP 148/72 07/16/23 08:26 Pulse Ox 99 07/16/23 09:25 FiO2 Intake & Output 07/15/23 07/16/23 07/16/23 18:59 06:59 18:59 Intake Total 720 10 Output Total 550 2150 100 Balance 170 -2140 -100 Weight 74.6 kg Intake: IV 10 Invasive Line 1 10 Oral 720 Output: Urine 550 2150 100 Other: Voiding Method Toilet Toilet Toilet # Voids 1 # Bowel Movements 1 - Exam GENERAL EXAM: Alert, pleasant 77-year-old female, seen up at the bedside, cu rrently on 2 L of oxygen by nasal cannula,, comfortable HEAD: Normocephalic and atraumatic EYES: Normal reaction of pupils, equal size. NOSE: Clear with pink turbinates. THROAT: No erythema or exudates. NECK: No masses, no JVD. CHEST: No chest wall deformity. LUNGS: Equal air entry with expiratory wheezes heard throughout. No conversational dyspnea. CVS: S1 and S2 normal with no audible murmur, regular rhythm. No extra heart sounds pacemaker pocket over the left anterior chest area. ABDOMEN: No hepatosplenomegaly, active bowel sounds, no guarding or rigidity. SPINE: No scoliosis or deformity SKIN: No rashes CENTRAL NERVOUS SYSTEM: No focal deficits, tone is normal in all 4 extremities. EXTREMITIES: There is bilateral lower extremity mild nonpitting edema with, and the patient has a. No clubbing, or cyanosis. Peripheral pulses are intact. - Labs CBC & Chem 7: 07/16/23 06:07/16/23 06:29 Labs: Abnormal Lab Results - Last 24 Hours (Table) 07/16/23 07/16/23 Range/Units : 06:29 Hgb 10.8 L (11.4-16.0) gm/dL RDW 17.8 H (11.5-15.5) % Plt Count 138 L (150-450) k/uL Sodium 136 L (137-145) mmol/L BUN 55 H (7-17) mg/dL Creatinine 1.35 H (0.52-1.04) mg/dL Assessment and Plan Plan: Acute on chronic hypoxemic respiratory failure, currently on 2-3 L/min nasal cannula, and the decompensated respiratory status is related to CHF as the patient has signs of fluid overload, pulmonary edema and she has an elevated pro BNP level. Repeat chest x-ray shows improvement in volume status and the patient has been effectively over the past 24 to 48 hours. Limited troponin leak, nonspecific, without any acute EKG changes. EKG is showing a paced rhythm Chronic COPD, currently inactive and stable Acute RSV infection with secondary COPD exacerbation has occurred back in March 2023 Nonspecific mediastinal lymphadenopathy without any significant metabolic activity based on the PET scan that was done in November 2021 Chronic hypoxemic respiratory failure, normally maintained on 2 L at bedtime, secondary to above Moderate pulmonary hypertension secondary to above Coronary artery disease, with history of previous PCI/stent History of sick sinus syndrome and chronic atrial fibrillation, status post permanent biventricular pacemaker implantation, and chronically anticoagulated on Eliquis Hypothyroidism Obesity, with a BMI 33.6 kg/m Remote ex smoker Plan: Continue same treatment Continue bronchodilators Mucinex Repeat chest x-ray in a.m. shows improvement of volume status Clinically improved slowly Titrate oxygen flow to maintain saturation above 90% Wean down FiO2 as tolerated currently on 2 L of oxygen by nasal cannula Continue the patient on Lasix 40 mg p.o. twice a day Continue anticoagulation with Eliquis Resume metoprolol Repeat echocardiogram, most recent echocardiogram was done and March 2023 showed a preserved LV function with an ejection fraction of 60 to 65%, severe pulm hypertension with a PA pressure of 74 and moderate degree of mitral regurgitation. Continue bronchodilators, no need for antibiotics. No need for steroids Will continue to follow
--- NOTE | 2023-07-16 12:52 | P.PN ---
Subjective Progress Note Date: 07/16/23 * 77 years old female with past medical history of COPD and heart disease and she follow-up with Dr. Currie and chronic kidney disease and bicytopenia. * Presents because of worsening shortness of breath for the last 3 to 4 days associated with cough and yellow phlegmHowever her oxygen dropped at home and usually she wears 2 L of oxygen bumped up to 3 L at home * CBC showed mild anemia 10.4, liver enzymes not elevated * Platelet count 114 which is low * Creatinine slightly up 1.23. Sodium is 134 stable * D-dimer is -0.43 * Troponin is elevated 0.0357 and 0.050. * Pro-BNP is elevated 78846 * Chest x-ray showing cardiomegaly with mild pulmonary vascular congestion * EKG showing ventricular paced rhythm Patient started on heparin drip and IV Lasix 40 mg twice daily * 07/15/23: Patient seen and evaluated at bedside, appreciate input from cardiology, reviewed, WBC 10.2, hemoglobin 10.7, platelet count 133. Serum chemistry shows sodium 133, creatinine 1.26 initial troponin 0.050, N-terminal proBNP 39894 * 07/16/23: Patient is seen and evaluated bedside, continue patient on diuresis, receiving Lasix, cardiology following, blood work reviewed, hemoglobin 10.8 platelet 138, serum chemistry sodium 136 potassium 3.8 BUN 55 creatinine 1.35 continue to monitor intake and output EXAM GENERAL: The patient is alert and oriented x3, ill appearance, pale appearance, nasal cannula in place HEENT: Pupils are round and equally reacting to light. EOMI. CARDIOVASCULAR: S1 and S2 present. No murmurs, rubs, or gallops. PULMONARY: Chest is clear to auscultation, no wheezing , no crackles. Patient is tachypneic ABDOMEN: Soft, nontender, nondistended, normoactive bowel sounds. No palpable o rganomegaly. MUSCULOSKELETAL: No joint swelling or deformity. EXTREMITIES: No cyanosis, clubbing, or pedal edema. NEUROLOGICAL: Gross neurological examination did not reveal any focal deficits. SKIN: No rashes. no petechiae. Assesement * Acute on chronic hypoxemic respiratory failure secondary to CHF exacerbation * History of COPD not in exacerbation * History of atrial fibrillation s/p pacemaker in place * Chronic hypoxemic respiratory failure on baseline 2 L of oxygen, history of pulmonary hypertension moderate * Coronary artery disease with history of PCI and elevated troponin * Acute on chronic congestive heart failure diastolic dysfunction preserved ejection fraction * Acute kidney injury * Hypertension Plan * In regards to hypoxemic respiratory failure, patient remains on 3 L of oxygen continue patient on Lasix, monitor intake and output cardiology following * CHF exacerbation seen by pulmonary medicine as well, plan to wean off oxygen as tolerated, continue diuresis secondary to history of pulmonary hypertension. * In regards to history of atrial fibrillation continue patient on metoprolol continue aspirin, Eliquis * Acute kidney injury creatinine elevated continue to monitor renal function while on diuresis * In regards to congestive heart failure, continue patient on Lasix, continue metoprolol monitor urine output Objective - Vital Signs Vital signs: Vital Signs Temp 98.2 F 07/16/23 08:26 Pulse 60 07/16/23 09:37 Resp 18 07/16/23 09:37 BP 148/72 07/16/23 08:26 Pulse Ox 99 07/16/23 09:25 FiO2 Intake & Output 07/15/23 07/16/23 07/16/23 18:59 06:59 18:59 Intake Total 720 10 Output Total 550 2150 100 Balance 170 -2140 -100 Weight 74.6 kg Intake: IV 10 Invasive Line 1 10 Oral 720 Output: Urine 550 2150 100 Other: Voiding Method Toilet Toilet Toilet # Voids 1 # Bowel Movements 1 - Labs CBC & Chem 7: 07/16/23 06:29 07/16/23 06:29 Labs: Abnormal Lab Results - Last 24 Hours (Table) 07/16/23 07/16/23 Range/Units 06:29 06:29 Hgb 10.8 L (11.4-16.0) gm/dL RDW 17.8 H (11.5-15.5) % Plt Count 138 L (150-450) k/uL Sodium 136 L (137-145) mmol/L BUN 55 H (7-17) mg/dL Creatinine 1.35 H (0.52-1.04) mg/dL
[2023-07-16] MEDS: FUROSEMIDE 40 MG TAB PO SCH (14:59)
[2023-07-17 11:59] LABS: Anisocytosis Slight; HCT 35.6 % (34.0-46.0); HGB 10.5 gm/dL (11.4-16.0); Hypochromasia Marked; MCH 26.3 pg (25.0-35.0); MCHC 29.6 g/dL (31.0-37.0); MCV 88.9 fL (80.0-100.0); Mean Platelet Volume 8.8; Platelet Count 136 k/uL (150-450); RDW 17.6 % (11.5-15.5); WBC 6.8 k/uL (3.8-10.6)
[2023-07-17 12:02] LABS: African American GFR (CKD) 54 (>60 ml/min/1.73 sqM); Anion Gap 9 mmol/L; Blood Urea Nitrogen 45 mg/dL (7-17); Calcium 8.9 mg/dL (8.4-10.2); Carbon Dioxide 20 mmol/L (22-30); Chloride 105 mmol/L (98-107); Glucose 97 mg/dL (74-99); Non-African American GFR(CKD) 47 (>60 ml/min/1.73 sqM); Sodium 134 mmol/L (137-145)
[2023-07-17 12:08] LABS: NT-Pro-B-Type Natriuretic Pept 14800 pg/mL
--- NOTE | 2023-07-17 13:15 | P.PN ---
Subjective Progress Note Date: 07/17/23 * 77 years old female with past medical history of COPD and heart disease and she follow-up with Dr. Currie and chronic kidney disease and bicytopenia. * Presents because of worsening shortness of breath for the last 3 to 4 days associated with cough and yellow phlegmHowever her oxygen dropped at home and usually she wears 2 L of oxygen bumped up to 3 L at home * CBC showed mild anemia 10.4, liver enzymes not elevated * Platelet count 114 which is low * Creatinine slightly up 1.23. Sodium is 134 stable * D-dimer is -0.43 * Troponin is elevated 0.0357 and 0.050. * Pro-BNP [place] elevated 34895 * Chest x-ray showing cardiomegaly with mild pulmonary vascular congestion * EKG showing ventricular paced rhythm Patient started on heparin drip and IV Lasix 40 mg twice daily * 07/15/23: Patient seen and evaluated at bedside, appreciate input from cardiology, reviewed, WBC 10.2, hemoglobin 10.7, platelet count 133. Serum chemistry shows sodium 133, creatinine 1.26 initial troponin 0.050, N-terminal proBNP 77370 * 07/16/23: Patient is seen and evaluated bedside, continue patient on diuresis, receiving Lasix, cardiology following, blood work reviewed, hemoglobin 10.8 platelet 138, serum chemistry sodium 136 potassium 3.8 BUN 55 creatinine 1.35 continue to monitor intake and output * 07/17/23: Patient seen and evaluated at bedside, patient does complain of exertional shortness of breath, remains on 3 L of oxygen which is close to baseline, patient transition from IV to oral Lasix. Patient to be monitored for another 24 hours continue to remain short of breath diarrhea has improved. 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 Patient counseled EXAM GENERAL: The patient is alert and oriented x3, ill appearance, pale appearance, nasal cannula in place HEENT: Pupils are round and equally reacting to light. EOMI. CARDIOVASCULAR: S1 and S2 present. No murmurs, rubs, or gallops. PULMONARY: Chest is clear to auscultation, no wheezing , no crackles. Patient is tachypneic ABDOMEN: Soft, nontender, nondistended, normoactive bowel sounds. No palpable organomegaly. MUSCULOSKELETAL: No joint swelling or deformity. EXTREMITIES: No cyanosis, clubbing, or pedal edema. NEUROLOGICAL: Gross neurological examination did not reveal any focal deficits. SKIN: No rashes. no petechiae. Assesement * Acute on chronic hypoxemic respiratory failure secondary to CHF exacerbation * History of COPD not in exacerbation * History of atrial fibrillation s/p pacemaker in place * Chronic hypoxemic respiratory failure on baseline 2 L of oxygen, history of pulmonary hypertension moderate * Coronary artery disease with history of PCI and elevated troponin * Acute on chronic congestive heart failure diastolic dysfunction preserved ejection fraction * Acute kidney injury * Hypertension Plan * In regards to hypoxemic respiratory failure, patient remains on 3 L of oxygen continue patient on Lasix, monitor intake and output cardiology following * CHF exacerbation seen by pulmonary medicine as well, plan to wean off oxygen as tolerated, continue diuresis secondary to history of pulmonary hypertension. * In regards to history of atrial fibrillation continue patient on metoprolol continue aspirin, Eliquis * Acute kidney injury creatinine elevated continue to monitor renal function while on diuresis * In regards to congestive heart failure, continue patient on Lasix, continue metoprolol monitor urine output Objective - Vital Signs Vital signs: Vital Signs Temp 98.1 F 07/17/23 04:00 Pulse 64 07/17/23 09:27 Resp 19 07/17/23 04:00 BP 134/75 07/17/23 04:00 Pulse Ox 98 07/17/23 09:08 FiO2 Intake & Output 07/16/23 07/17/23 07/17/23 18:59 06:59 18:59 Intake Total 958 360 Output Total 400 Balance 558 360 Weight 73.9 kg Intake: Oral 958 360 Output: Urine 400 Other: Voiding Method Toilet Toilet # Bowel Movements 4 - Labs CBC & Chem 7: 07/17/23 10:48 07/17/23 10:48
--- NOTE | 2023-07-17 15:12 | P.PN ---
Subjective Progress Note Date: 07/17/23 HISTORY OF PRESENT ILLNESS: This is a 77-year-old female with a past medical history significant for COPD, permanent atrial fibrillation, A-fib ablation, x 2, sick sinus syndrome with biventricular pacemaker implantation, hypertension, hyperlipidemia, and coronary artery disease. Patient follows in the office with Dr. Flynn. We have been asked to see the patient in consultation for congestive heart failure. Patient examined at the bedside. Patient presented to the hospital with a chief complaint of shortness of breath. The patient states her oxygen saturations at home are running in the 70s and 80s. She states that she uses oxygen at home at 2 L as needed but recently has been wearing it 03/10. She also reports that she had to turn up her oxygen to 3 L at home. She states that she was wheezing at home but that has since resolved. She continues to report shortness of breath although improved at the time of examination. She denies any chest pain or pressure. Vital signs are stable. The patient was found to be in acute CHF and was started on IV diuretics. DIAGNOSTICS: - EKG reveals ventricular paced rhythm with underlying atrial fibrillation. - Chest xray cardiomegaly and mild pulmonary vascular congestion. - Laboratory data: WBC 5.0. Hemoglobin 10.4. Platelet count 114. D-dimer 0.43. Sodium 134. Potassium 4.1. BUN 39. Creatinine 1.23. proBNP 15,900. Troponin 0.037. 0.050. - Current home cardiac medications include Eliquis 5 mg twice a day, Lipitor 40 mg at night, Lasix 40 mg twice a day, metoprolol succinate 100 mg daily. - Most recent echocardiogram obtained in March 2023 revealed ejection fraction 60 to 65%, severe pulmonary hypertension, RVSP 74 mmHg, moderate mitral regurgitation, severe tricuspid regurgitation - Patient underwent Lexiscan stress test in September 2020 which revealed fixed mid anterior wall defect secondary to soft tissue attenuation - Cardiac catheterization history: August 2017 revealing patent stent in the RCA. Mild nonobstructive disease involving the circumflex coronary artery and left anterior descending artery. 07/15/2023 Patient examined this morning. Patient is sitting up in the chair. She reports improvement in her shortness of breath. She reports that her hands feel less swollen today. She continues to have lower extremity edema. She remains on IV Lasix. Kidney function this morning remains stable at 1.26. 07/16/2023 Patient examined this morning. She is sitting up in the chair. Patient states she had an episode of shortness of breath overnight. This morning she is currently receiving a breathing treatment. She states her breathing is overall improved. She currently remains on IV Lasix. Patient's blood pressures are mildly elevated this morning however they have been well-controlled overall during hospitalization so we will continue to monitor at this time with no changes to her medication regimen. If blood pressure remains elevated tomorrow, will consider adding a antihypertensive medication 07/16: Patient states that she is not feeling good today. But her breathing is getting better. She has less lower extremity edema. Blood pressure 119/70, heart rate in the 60s, pulse ox 92% on 3 L nasal cannula. Repeat blood work reveals hemoglobin 10.5. Sodium 134, potassium 4, BUN 45 creatinine 1.14. proBNP 14,800. PHYSICAL EXAM: VITAL SIGNS: Reviewed. GENERAL: Well-developed in no acute distress. HEENT: Head is normocephalic. Pupils are equal, round. Sclerae anicteric. Mucous membranes of the mouth are moist. Neck supple. LUNGS: Respirations even and unlabored. Lungs with mild expiratory wheezing. HEART: Irregular rate and rhythm. S1 and S2 heard. Systolic murmur noted. ABDOMEN: Soft. Nondistended. Nontender. EXTREMITIES: Normal range of motion. No clubbing or cyanosis. Peripheral pulses intact. 1+ bilateral lower extremity edema NEUROLOGIC: Awake and alert. Oriented x 3. ASSESSMENT: Shortness of breath Acute on chronic heart failure with preserved EF Elevated troponin, type II AR secondary to oxygen supply and demand mismatch, no evidence of acute coronary syndrome Severe pulmonary hypertension COPD Chronic hypoxic respiratory failure, on home O2 Permanent atrial fibrillation Sick sinus syndrome with biventricular pacemaker implantation, [employer] Coronary artery disease with previous stenting of the RCA Hypertension Hyperlipidemia History of A-fib ablation, x 2 PLAN: Continue oral Lasix 40 mg twice a day Daily weights, accurate intake and output, and monitoring of kidney function Continue additional cardiac medications Further recommendations pending patient course Nurse practitioner note has been reviewed by physician. Signing provider agrees with the documented findings, assessment, and plan of care documented by IN STORE REPRESENTATIVE as a scribe. Objective - Vital Signs Vital signs: Vital Signs Temp 97.6 F 07/17/23 12:00 Pulse 68 07/17/23 12:37 Resp 18 07/17/23 12:00 BP 119/70 07/17/23 12:00 Pulse Ox 92 L 07/17/23 12:00 FiO2 Intake & Output 07/16/23 07/17/23 07/17/23 18:59 06:59 18:59 Intake Total 958 360 Output Total 400 Balance 558 360 Weight 73.9 kg Intake: Oral 958 360 Output: Urine 400 Other: Voiding Method Toilet Toilet Toilet # Bowel Movements 4 - Labs CBC & Chem 7: 07/17/23 10:48 07/17/23 10:48 Labs: Abnormal Lab Results - Last 24 Hours (Table) 07/17/23 07/17/23 Range/Units 10:48 10:48 Hgb 10.5 L (11.4-16.0) gm/dL MCHC 29.6 L (31.0-37.0) g/dL RDW 17.6 H (11.5-15.5) % Plt Count 136 L (150-450) k/uL Sodium 134 L (137-145) mmol/L Carbon Dioxide 20 L (22-30) mmol/L BUN 45 H (7-17) mg/dL Creatinine 1.14 H (0.52-1.04) mg/dL
[2023-07-17] MEDS: LIDOCAINE 4% PATCH TOPICAL ONE (15:51)
--- NOTE | 2023-07-17 16:47 | P.PN ---
Subjective Progress Note Date: 07/17/23 Principal diagnosis: Acute on chronic hypoxic respiratory failure secondary to congestive heart failure and underlying COPD which is presently inactive This is a 77-year-old female patient was hospitalized for worsening shortness of breath. This is recurrent hospitalization for decompensated heart failure. The patient came into the hospital because of worsening shortness of breath. She is on O2 at 2 L/min nasal cannula and her oxygen requirements were gradually going up and the symptoms the patient noted increased lower extremity edema. Denied having any chest pain. Based on that she came into the hospital. Chest x-ray was consistent with CHF. The patient also has a pacemaker pocket over the left anterior chest area. The hilum is prominent and full bilaterally. As far as his blood work, the patient demonstrated an elevated proBNP level of 15,900. Troponin 0.03 and 0.05 respectively x 2. Electrolytes are essentially within normal limits with a BUN of 32 and a creatinine of 1.02. Hemoglobin is at 11.4. EKG showed a paced rhythm. At this point in time, the patient has already received a dose of Lasix in the emergency department. Denies having any chest pain. Past medical history is positive for a recent stroke exacerbation that occurred in March 2023 for an acute RSV infection. She is known to have severe COPD, chronic hypoxic nadege failure maintain O2 at 2 L, chronic A-fib, hypothyroidism, coronary artery disease and previous history of coronary stenting. She does have degenerative arthritis and previous history of skin cancer and osteoporosis. On today's evaluation of 07/14/2023, the patient is being seen for a follow-up. The patient was seen in consultation yesterday for acute on top of chronic hypoxic respiratory failure and decompensated heart failure. The patient is feeling much better on today's evaluation. The proBNP level was elevated and the patient is currently on Lasix 40 mg IV every 12 hours. Fluid balance has b een negative at least half a liter over the past 24 hours. BUN is at 39 with a creatinine of 1.2 and a sodium level is 134 with a potassium level of 4.1. WBC count is 5 and the patient's hemoglobin is at 10.4. Repeat chest x-ray was done today and the chest x-ray is essentially unchanged with cardiomegaly and pulm vessel congestion and the patient would benefit from additional diuretics. Her condition is stable and clinically patient is feeling improved compared to yesterday. On 07/15/2023, the patient is being seen for a follow-up. The patient is doing well. Denies having any major improvement since yesterday. The patient is responding well to diuretics. The patient is negative fluid balance of at least 630 cc over the past 24 hours. BUN is 53 with a creatinine of 1.2 and a sodium levels of 133, WBC count of 10.0 with a hemoglobin of 10.7. No major edema lower extremities. No other new complaints otherwise for now. Medication remains unchanged. 07/16/2023, the patient is being seen for a follow-up. Patient is improving. The patient has diuresed effectively over the past 24 hours and the patient has been negative balance of around 1.9 L over the past 24 hours. BUN is 55 with a creatinine 1.3 and a sodium levels at 136. White cell count is at 8 with a hemoglobin of 10.8. The patient is still on 2 L of oxygen by nasal cannula with a pulse ox of 99%. No chest pain. He is ambulating. Denies having any new complaints. She remains on anticoagulation with Eliquis. She is also on aspirin and metoprolol. Lasix 40 mg p.o. twice a day. Chest x-ray shows improvement of volume status. Patient was today on 07/17/2023, we are seeing this patient again for her acute on chronic hypoxic respiratory failure, she has underlying COPD, and she was admitted with acute congestive heart failure. Patient is responding well to diuretics, chest x-ray is showing improvement, patient is breathing easier, hardly any pulmonary symptoms today, no cough no wheezing no fever no chills no hemoptysis. Patient remains on Lasix 40 mg twice daily, and she remains on Eliquis and on aspirin as well as metoprolol. Electrolytes are normal BUN is 45 creatinine 1.14, steadily improving last BNP level was almost 15,000 Objective - Vital Signs Vital signs: Vital Signs Temp 97.6 F 07/17/23 12:00 Pulse 66 07/17/23 16:22 Resp 18 07/17/23 12:00 BP 119/70 07/17/23 12:00 Pulse Ox 92 L 07/17/23 12:00 FiO2 Intake & Output 07/16/23 07/17/23 07/17/23 18:59 06:59 18:59 Intake Total 958 600 Output Total 400 900 Balance 558 -300 Weight 73.9 kg Intake: Oral 958 600 Output: Urine 400 900 Other: Voiding Method Toilet Toilet Toilet # Voids 2 # Bowel Movements 4 - Exam GENERAL EXAM: Reveals 77-year-old female in no distress, on 2 L nasal cannula HEAD: Normocephalic and atraumatic EYES: Normal reaction of pupils, equal size. NOSE: Clear with pink turbinates. THROAT: No erythema or exudates. NECK: No masses, no JVD. CHEST: No chest wall deformity. LUNGS: Diminished breath bilaterally, some wheezing on forced expiratory maneuver. CVS: S1 and S2 normal with no audible murmur, regular rhythm. No extra heart sounds pacemaker pocket over the left anterior chest area. ABDOMEN: No hepatosplenomegaly, active bowel sounds, no guarding or rigidity. SKIN: No rashes CENTRAL NERVOUS SYSTEM: Alert oriented x 3 no gross focal deficit EXTREMITIES: There is bilateral lower extremity mild nonpitting edema with, and the patient has a. No clubbing, or cyanosis. Peripheral pulses are intact. - Labs CBC & Chem 7: 07/17/23 10:48 07/17/23 10:48 Labs: Abnormal Lab Results - Last 24 Hours (Table) 07/17/23 07/17/23 Range/Units 10:48 10:48 Hgb 10.5 L (11.4-16.0) gm/dL MCHC 29.6 L (31.0-37.0) g/dL RDW 17.6 H (11.5-15.5) % Plt Count 136 L (150-450) k/uL Sodium 134 L (137-145) mmol/L Carbon Dioxide 20 L (22-30) mmol/L BUN 45 H (7-17) mg/dL Creatinine 1.14 H (0.52-1.04) mg/dL Assessment and Plan Assessment: Impression: Acute on chronic hypoxic respiratory failure Acute on chronic congestive heart failure with preserved ejection fraction History of underlying COPD presently inactive Severe pulmonary hypertension Acute coronary syndrome Permanent atrial fibrillation History of sick sinus syndrome and previous pacemaker implantation Coronary artery disease with previous stenting of RCA History of ablation for atrial fibrillation Benign essential hypertension Dyslipidemia Recommendation: Continue Lasix 40 mg twice daily continue close monitoring of I's and O's Continue bronchodilators for underlying COPD Continue oxygen and titrate accordingly Continue Mucinex and bronchodilators Continue metoprolol and Eliquis No need for antibiotics No need for steroids Will continue to follow Time with Patient: Less than 30
[2023-07-17] MEDS: MORPHINE SULFATE 4 MG/ML SYRINGE IV PRN (21:59)
[2023-07-18] MEDS: LIDOCAINE 4% PATCH TOPICAL SCH (08:23)
[2023-07-18 09:01] VITALS: TEMP 97.8
[2023-07-18 09:30] LABS: African American GFR (CKD) 52 (>60 ml/min/1.73 sqM); Anion Gap 8 mmol/L; Blood Urea Nitrogen 40 mg/dL (7-17); Calcium 8.9 mg/dL (8.4-10.2); Carbon Dioxide 24 mmol/L (22-30); Chloride 102 mmol/L (98-107); Glucose 128 mg/dL (74-99); Non-African American GFR(CKD) 45 (>60 ml/min/1.73 sqM); Sodium 134 mmol/L (137-145)
[2023-07-18 11:25] VITALS: BP 146/67; RESP 25
[2023-07-18 12:10] VITALS: PULSE 68
--- NOTE | 2023-07-18 15:37 | P.PN ---
Subjective Progress Note Date: 07/18/23 This is a 77-year-old female patient was hospitalized for worsening shortness of breath. This is recurrent hospitalization for decompensated heart failure. The patient came into the hospital because of worsening shortness of breath. She is on O2 at 2 L/min nasal cannula and her oxygen requirements were gradually going up and the symptoms the patient noted increased lower extremity edema. Denied having any chest pain. Based on that she came into the hospital. Chest x-ray was consistent with CHF. The patient also has a pacemaker pocket over the left anterior chest area. The hilum is prominent and full bilaterally. As far as his blood work, the patient demonstrated an elevated proBNP level of 15,900. Troponin 0.03 and 0.05 respectively x 2. Electrolytes are essentially within normal limits with a BUN of 32 and a creatinine of 1.02. Hemoglobin is at 11.4. EKG showed a paced rhythm. At this point in time, the patient has already received a dose of Lasix in the emergency department. Denies having any chest pain. Past medical history is positive for a recent stroke exacerbation that occurred in March 2023 for an acute RSV infection. She is known to have severe COPD, chronic hypoxic nadege failure maintain O2 at 2 L, chronic A-fib, hypothyroidism, coronary artery disease and previous history of coronary stenting. She does have degenerative arthritis and previous history of skin cancer and osteoporosis. On today's evaluation of 07/14/2023, the patient is being seen for a follow-up. The patient was seen in consultation yesterday for acute on top of chronic hypoxic respiratory failure and decompensated heart failure. The patient is feeling much better on today's evaluation. The proBNP level was elevated and the patient is currently on Lasix 40 mg IV every 12 hours. Fluid balance has been negative at least half a liter over the past 24 hours. BUN is at 39 with a creatinine of 1.2 and a sodium level is 134 with a potassium level of 4.1. WBC count is 5 and the patient's hemoglobin is at 10.4. Repeat chest x-ray was done today and the chest x-ray is essentially unchanged with cardiomegaly and pulm vessel congestion and the patient would benefit from additional diuretics. Her condition is stable and clinically patient is feeling improved compared to yesterday. On 07/15/2023, the patient is being seen for a follow-up. The patient is doing well. Denies having any major improvement since yesterday. The patient is responding well to diuretics. The patient is negative fluid balance of at least 630 cc over the past 24 hours. BUN is 53 with a creatinine of 1.2 and a sodium levels of 133, WBC count of 10.0 with a hemoglobin of 10.7. No major edema low er extremities. No other new complaints otherwise for now. Medication remains unchanged. 07/16/2023, the patient is being seen for a follow-up. Patient is improving. The patient has diuresed effectively over the past 24 hours and the patient has been negative balance of around 1.9 L over the past 24 hours. BUN is 55 with a creatinine 1.3 and a sodium levels at 136. White cell count is at 8 with a hemoglobin of 10.8. The patient is still on 2 L of oxygen by nasal cannula with a pulse ox of 99%. No chest pain. He is ambulating. Denies having any new complaints. She remains on anticoagulation with Eliquis. She is also on aspirin and metoprolol. Lasix 40 mg p.o. twice a day. Chest x-ray shows improvement of volume status. Patient was today on 07/17/2023, we are seeing this patient again for her acute on chronic hypoxic respiratory failure, she has underlying COPD, and she was adm itted with acute congestive heart failure. Patient is responding well to diuretics, chest x-ray is showing improvement, patient is breathing easier, hardly any pulmonary symptoms today, no cough no wheezing no fever no chills no hemoptysis. Patient remains on Lasix 40 mg twice daily, and she remains on Eliquis and on aspirin as well as metoprolol. Electrolytes are normal BUN is 45 creatinine 1.14, steadily improving last BNP level was almost 15,000 The patient is seen today July 18, 2023 in follow-up on the selective care unit. She is currently sitting up in a chair. She is maintaining good O2 saturations in the 90s on 3 L/min per nasal cannula. She is afebrile. Hemodynamically stable. Sodium 134. Potassium 4.0. Bicarb 24. BUN 40. Creatinine 1.18. Glucose 128. She remains on DuoNeb ventilations, oral diuretics, anticoagulated with Eliquis. Objective - Vital Signs Vital signs: Vital Signs Temp 97.8 F 07/18/23 08:20 Pulse 68 07/18/23 11:50 Resp 25 H 07/18/23 11:15 BP 146/67 07/18/23 11:15 Pulse Ox 90 L 07/18/23 11:15 FiO2 Intake & Output 07/17/23 07/18/23 07/18/23 18:59 06:59 18:59 Intake Total 960 180 Output Total 900 800 Balance 60 -800 180 Weight 78.5 kg Intake: Oral 960 180 Output: Urine 900 800 Other: Voiding Method Toilet Toilet Toilet # Voids 2 - Exam GENERAL EXAM: Alert, pleasant 77-year-old female, up in a chair, on 3 L nasal cannula, comfortable in no apparent distress. HEAD: Normocephalic. EYES: Normal reaction of pupils, equal size. NOSE: Clear with pink turbinates. THROAT: No erythema or exudates. NECK: No masses, no JVD. CHEST: No chest wall deformity. LUNGS: Equal air entry with few scattered rhonchi, diminished. CVS: S1 and S2 normal with no audible murmur, regular rhythm. ABDOMEN: No hepatosplenomegaly, normal bowel sounds, no guarding or rigidity. SPINE: No scoliosis or deformity SKIN: No rashes CENTRAL NERVOUS SYSTEM: No focal deficits, tone is normal in all 4 extremities. EXTREMITIES: There is 1+ peripheral edema. No clubbing, no cyanosis. Periphe ral pulses are intact. - Labs CBC & Chem 7: 07/17/23 10:48 07/18/23 07:55 Labs: Abnormal Lab Results - Last 24 Hours (Table) 07/18/23 Range/Units 07:55 Sodium 134 L (137-145) mmol/L BUN 40 H (7-17) mg/dL Creatinine 1.18 H (0.52-1.04) mg/dL Glucose 128 H (74-99) mg/dL Assessment and Plan Assessment: Acute on chronic hypoxic respiratory failure secondary to an acute exacerbation of diastolic congestive heart failure Acute on chronic congestive heart failure with preserved ejection fraction History of underlying COPD presently inactive Severe pulmonary hypertension Acute coronary syndrome Permanent atrial fibrillation History of sick sinus syndrome and previous pacemaker implantation Coronary artery disease with previous stenting of RCA History of ablation for atrial fibrillation Benign essential hypertension Dyslipidemia Plan: The patient was seen and evaluated Labs and medications reviewed Currently stable on 3 L nasal cannula Could be discharged home Follow-up in our office in 1 week Continue her home pulmonary medications/oxygen I have personally seen and examined the patient, performed the documentation and the assessment and plan as written. Number of minutes spent on the visit: 10.
--- NOTE | 2023-07-20 07:57 | P.DS ---
Providers Date of admission: 07/13/23 16:37 Attending physician: May Tanner Consults: 07/13/23 16:33 Consult Physician Routine Consulting Provider: Jak Goel Consult Reason/Comments: copd Do you want consulting provider notified?: Yes Consult Physician Routine Consulting Provider: Zohreh Steward Consult Reason/Comments: chf Do you want consulting provider notified?: Yes Primary care physician: Nirali Elizabeth Hospital Course: Final Diagnosis Acute on chronic congestive heart failure diastolic dysfunction preserved ejection fraction Acute on chronic hypoxemic respiratory failure secondary to CHF exacerbation History of COPD not in exacerbation History of atrial fibrillation s/p pacemaker in place Chronic hypoxemic respiratory failure on baseline 2 L of oxygen Severe pulmonary hypertension Coronary artery disease with history of PCI and elevated troponin Acute kidney injury secondary to volume overload Chronic kidney disease Hypertension Discharge Disposition Patient is stable for discharge home patient will continue on her 2 to 3 L of oxygen via nasal cannula. Patient has been transition back to oral Lasix 40 mg twice a day. Patient instructed to monitor her sodium intake and recommend to monitor daily weights. Patient has been discharged on farxiga daily. Toprol has been decreased. Patient is also given lidocaine patch for her right shoulder. Recommending to repeat labs in 2 to 3 days. Follow up with PCP Dr. Nirali Elizabeth in 1 to 2 days. Follow up with cardiology and pulmonary 2 weeks post discharge. Hospital Course This is a 77-year-old female with medical history of COPD, chronic kidney disease and heart disease follows with Dr. Flynn in the office. Patient comes into the hospital due to worsening shortness of breath over the last 3 to 4 days and is also complaining of cough with yellow phlegm. Patient does wear 2L oxygen chronically however she did require going up to 3 L at home. Patient had low platelet count of 114 on admission, mild anemia 10.4, creatinine 1.23, D- dimer 0.43. Patient did have troponin elevation of 0.357 and 0.050 and an elevation of her proBNP at 15,900. Chest x-ray shows cardiomegaly with mild pulmonary vascular congestion. Patient has a ventricular paced rhythm. Admitted to the hospital under medicine with a consult placed to cardiology services as well as pulmonary. Patient was started on IV heparin drip for the troponin elevation as well as IV Lasix 40 mg twice a day. Patient was monitored and diuresed well and has been continued on 3 L of oxygen. Patient also had peripheral edema however this is significantly improved with diuresis. Patient feels like she is back to baseline has been up ambulating. She is continued on 3 L of oxygen via nasal cannula. Most recent echocardiogram of March 2023 reveals an normal LV systolic function of 60 to 65% ejection fraction, severe pulmonary hypertension, severe LA dilation right ventricular systolic pressure estimated at 74 mmHg, moderate mitral regurgitation. Patients lungs are clear. Her most recent creatinine is 1.18. She will be discharged home. Please see medication reconciliation for a list of current medications. Thank you for allowing us to participate in the care of this patient. The impression and plan of care has been dictated by Praveena Barry, Nurse Practitioner as directed. Dr. Karrie MD I have performed a history and physical examination and medical decision making of this patient, discussed the same with the dictator, and agree with the dictators assessment and plan as written, documented as a scribe. Based on total visit time, I have performed more than 50% of this visit. Patient Condition at Discharge: Fair Plan - Discharge Summary New Discharge Prescriptions: New Dapagliflozin Propanediol [Farxiga] 10 mg PO DAILY #30 tab Metoprolol Succinate (ER) [Toprol XL] 50 mg PO DAILY #30 tab Lidocaine 4% Patch 1 patch TOPICAL DAILY #7 patch Continue Vit C/E/Zn/Coppr/Lutein/Zeaxan [Preservision Areds 2 Softgel] 1 cap PO BID Atorvastatin [Lipitor] 40 mg PO HS #30 tab allopurinoL [Zyloprim] 100 mg PO DAILY Fluticasone/Umeclidin/Vilanter [Trelegy Ellipta 100-62.5-25] 1 puff INHALATION RT-DAILY Aspirin [[place] Aspirin EC] 81 mg PO DAILY Cholecalciferol [Vitamin D3 (25 Mcg = 1000 Iu)] 25 mcg PO MOWEFR Ipratropium-Albuterol Nebulize [Duoneb 0.5 mg-3 mg/3 ml Soln] 3 ml INHALATION RT-QID Apixaban [Eliquis] 5 mg PO BID Furosemide [Lasix] 40 mg PO BID@0900,1600 #60 tab Magnesium Oxide [Magox 400] 400 mg PO DAILY Sodium Bicarbonate 325 mg PO BID guaiFENesin [Mucinex] 600 mg PO BID calcitrioL 0.25 mcg PO MOWEFR Albuterol Sulfate [Ventolin HFA] 2 puff INHALATION RT-QID PRN 7 Days #1 each PRN Reason: Shortness Of Breath Levothyroxine Sodium [Synthroid] 50 mcg PO DAILY Discontinued Metoprolol Succinate (ER) [Toprol XL] 100 mg PO DAILY Discharge Medication List Vit C/E/Zn/Coppr/Lutein/Zeaxan [Preservision Areds 2 Softgel] 1 cap PO BID 03/02/15 [History] Atorvastatin [Lipitor] 40 mg PO HS #30 tab 03/04/15 [Rx] allopurinoL [Zyloprim] 100 mg PO DAILY 10/22/18 [History] Fluticasone/Umeclidin/Vilanter [Trelegy Ellipta 100-62.5-25] 1 puff INHALATION RT-DAILY 07/01/19 [History] Aspirin [[place] Aspirin EC] 81 mg PO DAILY 08/09/19 [History] Cholecalciferol [Vitamin D3 (25 Mcg = 1000 Iu)] 25 mcg PO MOWEFR 05/23/20 [History] Ipratropium-Albuterol Nebulize [Duoneb 0.5 mg-3 mg/3 ml Soln] 3 ml INHALATION RT-QID 10/28/21 [History] Apixaban [Eliquis] 5 mg PO BID 04/09/23 [History] Sodium Bicarbonate 325 mg PO BID 04/09/23 [History] calcitrioL 0.25 mcg PO MOWEFR 04/09/23 [History] guaiFENesin [Mucinex] 600 mg PO BID 04/09/23 [History] Albuterol Sulfate [Ventolin HFA] 2 puff INHALATION RT-QID PRN 7 Days #1 each 04/13/23 [Rx] Furosemide [Lasix] 40 mg PO BID@0900,1600 #60 tab 04/13/23 [Rx] Levothyroxine Sodium [Synthroid] 50 mcg PO DAILY 07/13/23 [History] Magnesium Oxide [Magox 400] 400 mg PO DAILY 07/13/23 [History] Dapagliflozin Propanediol [Farxiga] 10 mg PO DAILY #30 tab 07/18/23 [Rx] Lidocaine 4% Patch 1 patch TOPICAL DAILY #7 patch 07/18/23 [Rx] Metoprolol Succinate (ER) [Toprol XL] 50 mg PO DAILY #30 tab 07/18/23 [Rx] Follow up Appointment(s)/Referral(s): Gibran Rain MD [STAFF PHYSICIAN] - 08/01/23 9:15 am Nirali Elizabeth MD [Primary Care Provider] - 1-2 days Rajesh Flynn MD [STAFF PHYSICIAN] - 1 Week Ambulatory/Diagnostic Orders: Basic Metabolic Panel [LAB.AMB] Time Frame: 3 Days, Location: None Selected Complete Blood Count w/diff [LAB.AMB] Location: None Selected Discharge Disposition: HOME SELF-CARE
== END 2023-07-18 14:13 | disposition home or self-care (01) | DRG 280 ==
LOC: EC 13:54 → 3SCARD 16:37
PROVIDERS: ADMIT Hospitalist; ATTEND Hospitalist
DX: I13.0 Hypertensive heart and chronic kidney disease with heart failure and stage 1 through stage 4 chronic kidney disease, or unspecified chronic kidney disease (principal); I50.43 Acute on chronic combined systolic (congestive) and diastolic (congestive) heart failure; I21.A1 Myocardial infarction type 2; J96.21 Acute and chronic respiratory failure with hypoxia; N17.9 Acute kidney failure, unspecified; I48.21 Permanent atrial fibrillation; Z95.5 Presence of coronary angioplasty implant and graft; Z99.81 Dependence on supplemental oxygen; E78.5 Hyperlipidemia, unspecified; I49.5 Sick sinus syndrome; Z68.36 Body mass index [BMI] 36.0-36.9, adult; J44.9 Chronic obstructive pulmonary disease, unspecified; D64.9 Anemia, unspecified; D69.6 Thrombocytopenia, unspecified; E03.9 Hypothyroidism, unspecified; Z79.890 Hormone replacement therapy; F41.9 Anxiety disorder, unspecified; H91.90 Unspecified hearing loss, unspecified ear; Z87.01 Personal history of pneumonia (recurrent); M10.9 Gout, unspecified; Z87.440 Personal history of urinary (tract) infections; Z87.19 Personal history of other diseases of the digestive system; I27.20 Pulmonary hypertension, unspecified; I25.110 Atherosclerotic heart disease of native coronary artery with unstable angina pectoris; M81.0 Age-related osteoporosis without current pathological fracture; M19.90 Unspecified osteoarthritis, unspecified site; N18.9 Chronic kidney disease, unspecified; Z79.01 Long term (current) use of anticoagulants; Z79.82 Long term (current) use of aspirin; Z79.84 Long term (current) use of oral hypoglycemic drugs; Z79.899 Other long term (current) drug therapy; Z82.49 Family history of ischemic heart disease and other diseases of the circulatory system; Z86.73 Personal history of transient ischemic attack (TIA), and cerebral infarction without residual deficits; Z85.828 Personal history of other malignant neoplasm of skin; Z87.891 Personal history of nicotine dependence; Z90.710 Acquired absence of both cervix and uterus; Z80.3 Family history of malignant neoplasm of breast; Z95.0 Presence of cardiac pacemaker; E66.9 Obesity, unspecified; I25.2 Old myocardial infarction; Z98.42 Cataract extraction status, left eye; Z98.41 Cataract extraction status, right eye; Z95.818 Presence of other cardiac implants and grafts; Z90.49 Acquired absence of other specified parts of digestive tract
CPT/HCPCS: 36415; 71045; 80048; 80053; 83735; 83880; 84100; 84484; 85025; 85027; 85379; 85610; 85730; 87636; 93005; 94640; 94760; 96361; 96374; 96375; 99291

== ENCOUNTER → 2023-10-02 | Outpatient (CLI) | payer MEDICARE ==
--- NOTE | 2023-10-02 16:19 | NM ---
EXAMINATION TYPE: NM parathyroid DATE OF EXAM: 10/02/2023 COMPARISON: NONE CLINICAL INDICATION: Female, 78 years old with history of N25.81 secondary hyperparathyroidism; TECHNIQUE: Following administration of 23.8 mCi Tc99m Sestamibi. Anterior projection images of the neck and ches t were obtained 10 minutes and 3 hours post injection FINDINGS: Thyroid tracer washout: Delayed images demonstrate near-complete tracer washout from the thyroid. Parathyroid uptake: None. The two-hour delayed images do not demonstrate any focal abnormal persisten t uptake in the region of the parathyroid glands to suggest parathyroid adenoma. Normal uptake: There is physiological tracer uptake in the myocardium, liver, salivary glands, and th yroid gland. IMPRESSION: Normal parathyroid imaging study. No evidence for mediastinal uptake to suggest mediastinal parathyro id adenoma
== END | disposition home or self-care (01) ==
LOC: RADNMMAIN 10:59
PROVIDERS: ATTEND Internal Medicine
DX: N25.81 Secondary hyperparathyroidism of renal origin (principal)
CPT/HCPCS: 78070; A9500

== ENCOUNTER → 2023-10-02 | Outpatient (CLI) | payer MEDICARE ==
[2023-10-02 15:30] LABS: Appearance,Urine Clear (Clear); Bilirubin,Urine Negative (Negative); Blood,Urine Negative (Negative); Color,Urine Yellow (Yellow); Ketones,Urine Negative (Negative); Nitrite,Urine Negative (Negative); Specific Gravity,Urine 1.012 (1.001-1.030); Urobilinogen,Urine 0.2 E.U./DL
[2023-10-02 17:02] LABS: HCT 37.1 % (37.2-46.3); HGB 10.4 g/dL (12.0-15.0); MCH 23.3 pg (27.0-32.0); MCV 83.2 FL (80.0-97.0); Mean Platelet Volume 10.8 FL (9.5-12.2); NRBC Per 100 WBC 0 X 10*3/uL (0.00-0.01); Platelet Count 216 X 10*3/uL (140-440); RBC 4.46 X 10*6/uL (4.10-5.20); RDW 19.8 % (11.5-14.5); WBC 7.78 X 10*3/uL (4.50-10.00)
[2023-10-02 17:50] LABS: % Iron Saturation 6.47 (12.00-45.00); ALT 14 U/L (8-44); AST 29 U/L (13-35); Albumin 4.1 g/dL (3.8-4.9); Albumin/Globulin Ratio 1.46 Ratio (1.60-3.17); Alkaline Phosphatase 143 U/L (41-126); Blood Urea Nitrogen 46.8 mg/dL (9.0-27.0); Calcium 9.5 mg/dL (8.7-10.3); Carbon Dioxide 21.1 mmol/L (21.6-31.8); Chloride 104 mmol/L (96-109); Ferritin 57.5 ng/mL (10.0-291.0); Globulin 2.8 g/dL (1.6-3.3); Glucose 100 mg/dL (70-110); Iron 27 UG/DL (50-170); Magnesium 2.2 mg/dL (1.5-2.4); Phosphorus 4.3 mg/dL (2.4-5.1); Potassium 3.7 mmol/L (3.5-5.5); Sodium 142 mmol/L (135-145); Total Bilirubin 0.7 mg/dL (0.3-1.2); Total Iron Binding Capacity 417 UG/DL (228-460); Total Protein 6.9 g/dL (6.2-8.2); Uric Acid 7.3 mg/dL (2.9-7.7)
[2023-10-03 11:10] LABS: Free Kappa Lt Chain Qnt, Serum 5.27 mg/dL (0.33-1.94); Free Lambda Lt Chain Qnt, Seru 3.64 mg/dL (0.57-2.63)
== END | disposition home or self-care (01) ==
LOC: LABWHC1 12:02
PROVIDERS: ATTEND Internal Medicine
DX: N18.32 Chronic kidney disease, stage 3b (principal); D63.1 Anemia in chronic kidney disease; N39.0 Urinary tract infection, site not specified; E55.9 Vitamin D deficiency, unspecified; N25.81 Secondary hyperparathyroidism of renal origin; M10.9 Gout, unspecified; R80.9 Proteinuria, unspecified
CPT/HCPCS: 36415; 80053; 81003; 82043; 82306; 82570; 82728; 83540; 83550; 83735; 83883; 83970; 84100; 84166; 84550; 85027; 86334

== ENCOUNTER 2023-12-31 15:34 | Inpatient (IN) | payer MEDICARE ==
[2023-12-31] MEDS: MAGNESIUM SULFATE-D5W PMX 1 GM in DEXTROSE/WATER 1 100ML.BAG IVPB STA (16:25)
[2023-12-31] MEDS: methylPREDNISolone SOD SUCCI 125 MG/2 ML VIAL IV STA (16:26)
--- NOTE | 2023-12-31 16:27 | ED ---
General Adult HPI - General Chief complaint: Shortness of Breath Stated complaint: SOB Time Seen by Provider: 12/31/23 15:45 Source: patient, EMS, RN notes reviewed, old records reviewed Mode of arrival: EMS Limitations: no limitations - History of Present Illness Initial comments: Patient is a 78-year-old female with past medical history markable for chronic hypoxic respiratory failure secondary to COPD on 3 L nasal cannula oxygen at home. Presents emergency department for worsening shortness of breath and productive cough. Has been ongoing for a few weeks but worse over the last 1 day. States she had worsening shortness of breath at home prior to arrival. Was recently on pneumonia and treated outpatient with oral antibiotics. Cu rrently not on any antibiotics. Thinks her COPD is flaring up. Denies any fevers or chills. Denies nausea or vomiting. Endorses worsening productive cough with thick yellow mucus. Denies any diarrhea. Has no abdominal pain or chest pain. No other acute complaints at this time. Past medical history includes COPD, CAD, atrial fibrillation on blood thinners. Presents for further evaluation. - Related Data Home Medications Medication Instructions Recorded Confirmed Vit C/E/Zn/Coppr/Lutein/Zeaxan 1 cap PO BID 03/02/15 12/31/23 [Preservision Areds 2 Softgel] allopurinoL [Zyloprim] 100 mg PO DAILY 10/22/18 12/31/23 Fluticasone/Umeclidin/Vilanter 1 puff INHALATION RT-DAILY 07/01/19 12/31/23 [Trelegy Ellipta 100-62.5-25] Aspirin [[place] Aspirin EC] 81 mg PO DAILY 08/09/19 12/31/23 Cholecalciferol [Vitamin D3 (25 25 mcg PO DAILY 05/23/20 12/31/23 Mcg = 1000 Iu)] Ipratropium-Albuterol Nebulize 3 ml INHALATION RT-QID 10/28/21 12/31/23 [Duoneb 0.5 mg-3 mg/3 ml Soln] Apixaban [Eliquis] 5 mg PO BID 04/09/23 12/31/23 Sodium Bicarbonate 325 mg PO BID 04/09/23 12/31/23 calcitrioL 0.25 mcg PO MOWEFR 04/09/23 12/31/23 Levothyroxine Sodium [Synthroid] 50 mcg PO DAILY 07/13/23 12/31/23 Cranberry Fruit Extract [Cranberry] 500 mg PO BID 12/31/23 12/31/23 Empagliflozin [Jardiance] 10 mg PO DAILY 12/31/23 12/31/23 Gabapentin [Neurontin] 100 mg PO BID 12/31/23 12/31/23 Omeprazole 20 mg PO DAILY 12/31/23 12/31/23 Potassium Chloride ER [K-Dur 10] 10 meq PO DAILY 12/31/23 12/31/23 Previous Rx's Medication Instructions Recorded Atorvastatin [Lipitor] 40 mg PO HS #30 tab 03/04/15 Albuterol Sulfate [Ventolin HFA] 2 puff INHALATION RT-QID PRN 7 04/13/23 Days #1 each Furosemide [Lasix] 40 mg PO BID@0900,1600 #60 tab 04/13/23 Metoprolol Succinate (ER) [Toprol 50 mg PO DAILY #30 tab 07/18/23 XL] Allergies Allergy/AdvReac Type Severity Reaction Status Date / Time codeine Allergy Itching Verified 12/31/23 18:16 Review of Systems ROS Statement: Those systems with pertinent positive or pertinent negative responses have been documented in the HPI. Review of Systems: CONST: Denies fever EYES: Denies blurry vision ENT: Denies nasal congestion C/V: Denies Chest pain RESP: Endorses shortness of breath, productive cough GI: Denies abdominal pain : Denies dysuria SKIN: Denies rash. MSK: Denies joint pain. NEURO: Denies headache ROS Other: All systems not noted in ROS Statement are negative. Past Medical History Past Medical History: Atrial Fibrillation, Asthma, Coronary Artery Disease (CAD), Cancer, COPD, Eye Disorder, Hearing Disorder / Deafness, Myocardial Infarction ([place]), Osteoarthritis (OA), Pneumonia, Thyroid Disorder Additional Past Medical History / Comment(s): See Dr Trimble's H&P, Gout, hiatal hernia, Macular Degeneration, Skin Cancer, degenerative disc disease, osteoporosis. UTI 07/01/19. Last Myocardial Infarction Date:: 2011 History of Any Multi-Drug Resistant Organisms: None Reported Past Surgical History: Cardiac Ablation, Cholecystectomy, Heart Catheterization With Stent, Hysterectomy, Orthopedic Surgery, Pacemaker, Tonsillectomy Additional Past Surgical History / Comment(s): Right shoulder surgery, left wrist surgery. Thyroid Nodule removed, sylvia Cataracts, LOOP RECORDER-11/23/17; CHRIO ABLATION 03/08/18 WITH CARDIOVERSION Past Anesthesia/Blood Transfusion Reactions: No Reported Reaction Date of Last Stent Placement:: 2011 Type of Cardiac Device: Permanent Pacemaker Device Placement Date:: 07/2019 Past Psychological History: No Psychological Hx Reported Smoking Status: Former smoker Past Alcohol Use History: None Reported Past Drug Use History: None Reported - Past Family History Mother Family Medical History: Cancer, Congestive Heart Failure (CHF), Myocardial Infarction ([place]), Pneumonia, Pulmonary Embolus Additional Family Medical History / Comment(s): breast CA Father Family Medical History: CVA/TIA, Myocardial Infarction ([place]) General Exam - General Exam Comments Initial Comments: General: Appears in no acute distress. HEAD: Normal with no signs of head trauma. EYES: PERRLA, EOMI, conjunctiva normal, no discharge. ENT: Hearing grossly intact, normal oropharynx. RESPIRATORY: Bilateral end expiratory wheezing. No significant increased work of breathing. Patient is 96% on 4 L. Patient is 92% on 3 L nasal cannula. C/V: Regular rate and rhythm. S1 and S2 auscultated, mild symmetrical lower extremity pitting edema, peripheral pulses 2+ and intact throughout ABD: Abd is soft, nontender, nondistended EXT: Normal range of motion, no obvious deformity SKIN: No rashes or lesions observed on exposed skin. NEURO: Alert and oriented x 4. Limitations: no limitations Course Vital Signs 12/31/23 12/31/23 12/31/23 15:36 16:46 17:06 Temperature 98.0 F Pulse Rate 77 74 78 Respiratory 18 Rate Blood Pressure 152/81 O2 Sat by Pulse 92 L Oximetry Medical Decision Making - Medical Decision Making Was pt. sent in by a medical professional or institution (, PA, SENIOR CONSTRUCTION PROJECT MANAGER, urgent care, hospital, or fci...) When possible be specific @ -No Did you speak to anyone other than the patient for history (EMS, parent, family, police, friend...)? What history was obtained from this source @ -No Did you review nursing and triage notes (agree or disagree)? Why? @ -I reviewed and agree with nursing and triage notes Were old charts reviewed (outside hosp., previous admission, EMS record, old EKG, old radiological studies, urgent care reports/EKG's, fci records)? Report findings @ -Compare today's EKG with old EKG from July 2023. No significant acute change in comparison. Differential Diagnosis (chest pain, altered mental status, abdominal pain women, abdominal pain men, vaginal bleeding, weakness, fever, dyspnea, syncope, h eadache, dizziness, GI bleed, back pain, seizure, CVA, palpatations, mental health, musculoskeletal)? @ -Differential Dyspnea: Coronary syndrome, arrhythmia, tamponade, asthma, COPD, pulmonary embolism, pneumonia, pneumothorax, pulmonary effusion, anaphylaxis, diabetic ketoacidosis, flailed chest, pulmonary contusion, diaphragmatic rupture, anemia, neuromuscular, this is not meant to be an all-inclusive list. EKG interpreted by me (3pts min.). @ -As above X-rays interpreted by me (1pt min.). @ -Chest x-ray shows pulmonary vascular congestion. CT interpreted by me (1pt min.). @ -None done U/S interpreted by me (1pt. min.). @ -None done What testing was considered but not performed or refused? (CT, X-rays, U/S, labs)? Why? @ -None What meds were considered but not given or refused? Why? @ -None Did you discuss the management of the patient with other professionals (professionals i.e. , PA, SENIOR CONSTRUCTION PROJECT MANAGER, lab, RT, psych nurse, medical social consultant, gyroscopic instrument tester, teacher, staff electronic warfare officer, caser in)? Give summary @ - I spoke with the admitting provider, JAVAN Gonzalez who accepted the admission for [facility] Was smoking cessation discussed for >3mins.? @ -No Was critical care preformed (if so, how long)? @ -No Were there social determinants of health that impacted care today? How? (Homelessness, low income, unemployed, alcoholism, drug addiction, transportation, low edu. Level, literacy, decrease access to med. care, usp, rehab)? @ -No Was there de-escalation of care discussed even if they declined (Discuss DNR or withdrawal of care, Hospice)? DNR status @ -No What co-morbidities impacted this encounter? (DM, HTN, Smoking, COPD, CAD, Cancer, CVA, ARF, Chemo, Hep., AIDS, mental health diagnosis, sleep apnea, morbid obesity)? @ -Chronic hypoxic respiratory failure, COPD Was patient admitted / discharged? Hospital course, mention meds given and route, prescriptions, significant lab abnormalities, going to OR and other pertinent info. @ -Based on the patient's presentation and physical exam, presents with what appears to be COPD exacerbation with possible upper respiratory infection. We will obtain EKG, chest x-ray, basic labs, viral swabs. She will be symptomatically treat with IV steroids, magnesium, DuoNebs. Patient was in agreement this plan. Will continue on her baseline oxygen. Vital signs otherwise within acceptable limits. EKG shows ventricular paced rhythm with no signs of acute ischemia.Chest x-ray shows pulmonary vascular congestion. Laboratory studies remarkable for BNP of 11,000. Mild hyponatremia at 128. Viral swabs negative. On reevaluation, patient is feeling improved. Dyspnea is likely multifactorial including CHF, as well as COPD exacerbation with possible bronchitis. She will be treated for all 3. She was started on IV Lasix. Will continue with IV steroids as well as give the patient dose of IV azithromycin. We will continue with breathing treatments as well. Patient was in agreement this plan. Cardiology and pulmonology will be consulted. Patient will be admitted at this time. I spoke with the admitting provider, JAVAN Gonzalez who accepted the admission for [facility] Undiagnosed new problem with uncertain prognosis? @ -No Drug Therapy requiring intensive monitoring for toxicity (Heparin, Nitro, Insulin, Cardizem)? @ -No Were any procedures done? @ -No Diagnosis/symptom? @ -COPD, CHF, tracheobronchitis in the setting of chronic hypoxic respiratory failure Acute, or Chronic, or Acute on Chronic? @ -Acute Uncomplicated (without systemic symptoms) or Complicated (systemic symptoms)? @ -Acute Side effects of treatment? @ -None Exacerbation, Progression, or Severe Exacerbation] @ -No Poses a threat to life or bodily function? @ -Yes - Lab Data Result diagrams: 12/31/23 16:19 12/31/23 16:19 Lab Results 12/31/23 12/31/23 12/31/23 Range/Units 15:54 16:19 16:19 WBC 7.9 (3.8-10.6) k/uL RBC 4.95 (3.80-5.40) m/uL Hgb 10.8 L (11.4-16.0) gm/dL Hct 36.6 (34.0-46.0) % MCV 73.9 L (80.0-100.0) fL MCH 21.9 L (25.0-35.0) pg MCHC 29.6 L (31.0-37.0) g/dL RDW 19.2 H (11.5-15.5) % Plt Count 205 (150-450) k/uL MPV 7.8 Neutrophils % 69 % Lymphocytes % 17 % Monocytes % 8 % Eosinophils % 1 % Basophils % 1 % Neutrophils # 5.5 (1.3-7.7) k/uL Lymphocytes # 1.4 (1.0-4.8) k/uL Monocytes # 0.6 (0-1.0) k/uL Eosinophils # 0.1 (0-0.7) k/uL Basophils # 0.0 (0-0.2) k/uL Manual Slide Review Performed Hypochromasia Marked Anisocytosis Slight Microcytosis Moderate PT 12.3 (10.0-12.5) sec INR 1.1 (<1.2) APTT 23.3 (22.0-30.0) sec Sodium (137-145) mmol/L Potassium (3.5-5.1) mmol/L Chloride (98-107) mmol/L Carbon Dioxide (22-30) mmol/L Anion Gap mmol/L BUN (7-17) mg/dL Creatinine (0.52-1.04) mg/dL Est GFR (CKD-EPI)AfAm (>60 ml/min/1.73 sqM) Est GFR (CKD-EPI)NonAf (>60 ml/min/1.73 sqM) Glucose (74-99) mg/dL Calcium (8.4-10.2) mg/dL Magnesium (1.6-2.3) mg/dL Total Bilirubin (0.2-1.3) mg/dL AST (14-36) U/L ALT (4-34) U/L Alkaline Phosphatase (38-126) U/L NT-Pro-B Natriuret Pep pg/mL Total Protein (6.3-8.2) g/dL Albumin (3.5-5.0) g/dL Influenza Type A (PCR) Not Detected (Not Detectd) Influenza Type B (PCR) Not Detected (Not Detectd) RSV (PCR) Not Detected (Not Detectd) SARS-CoV-2 (PCR) Not Detected (Not Detectd) 12/31/23 Range/Units 16:19 WBC (3.8-10.6) k/uL RBC (3.80-5.40) m/uL Hgb (11.4-16.0) gm/dL Hct (34.0-46.0) % MCV (80.0-100.0) fL MCH (25.0-35.0) pg MCHC (31.0-37.0) g/dL RDW (11.5-15.5) % Plt Count (150-450) k/uL MPV Neutrophils % % Lymphocytes % % Monocytes % % Eosinophils % % Basophils % % Neutrophils # (1.3-7.7) k/uL Lymphocytes # (1.0-4.8) k/uL Monocytes # (0-1.0) k/uL Eosinophils # (0-0.7) k/uL Basophils # (0-0.2) k/uL Manual Slide Review Hypochromasia Anisocytosis Microcytosis PT (10.0-12.5) sec INR (<1.2) APTT (22.0-30.0) sec Sodium 128 L (137-145) mmol/L Potassium 3.5 (3.5-5.1) mmol/L Chloride 96 L (98-107) mmol/L Carbon Dioxide 23 (22-30) mmol/L Anion Gap 9 mmol/L BUN 31 H (7-17) mg/dL Creatinine 1.04 (0.52-1.04) mg/dL Est GFR (CKD-EPI)AfAm 60 (>60 ml/min/1.73 sqM) Est GFR (CKD-EPI)NonAf 52 (>60 ml/min/1.73 sqM) Glucose 80 (74-99) mg/dL Calcium 8.9 (8.4-10.2) mg/dL Magnesium 1.8 (1.6-2.3) mg/dL Total Bilirubin 1.3 (0.2-1.3) mg/dL AST 50 H (14-36) U/L ALT 26 (4-34) U/L Alkaline Phosphatase 128 H (38-126) U/L NT-Pro-B Natriuret Pep 66958 pg/mL Total Protein 6.4 (6.3-8.2) g/dL Albumin 3.7 (3.5-5.0) g/dL Influenza Type A (PCR) (Not Detectd) Influenza Type B (PCR) (Not Detectd) RSV (PCR) (Not Detectd) SARS-CoV-2 (PCR) (Not Detectd) - EKG Data -: EKG Interpreted by Me EKG Comments: 12-lead Electrocardiogram Interpretation Note EKG was reviewed and interpreted by myself. 12-lead ECG performed at 1607 is interpreted by me as revealing ventricularly paced rhythm at a rate of 62 beats per minute. Right axis deviation. QRS durations 152 ms, QTc is 469 ms.. There were no ST or T wave abnormalities to suggest myocardial ischemia or injury. R wave progression across the precordium was delayed. By my interpretation this EKG is non-diagnostic for acute ischemia. Disposition Clinical Impression: COPD (chronic obstructive pulmonary disease), CHF (congestive heart failure), Tracheobronchitis, Chronic hypoxic respiratory failure Disposition: ADMITTED IP TO THIS HOSP Condition: Stable Referrals: Nirali Elizabeth MD [Primary Care Provider] - 1-2 days Time of Disposition: 18:45
[2023-12-31] MEDS: IPRATROPIUM-ALBUTEROL 3 ML NEB INHALATION STA (16:45)
[2023-12-31 16:49] LABS: INR 1.1 (<1.2); Partial Thromboplastin Time 23.3 sec (22.0-30.0); Prothrombin Time 12.3 sec (10.0-12.5)
[2023-12-31 16:52] LABS: ALT 26 U/L (4-34); AST 50 U/L (14-36); African American GFR (CKD) 60 (>60 ml/min/1.73 sqM); Albumin 3.7 g/dL (3.5-5.0); Alkaline Phosphatase 128 U/L (38-126); Anion Gap 9 mmol/L; Blood Urea Nitrogen 31 mg/dL (7-17); Calcium 8.9 mg/dL (8.4-10.2); Carbon Dioxide 23 mmol/L (22-30); Chloride 96 mmol/L (98-107); Glucose 80 mg/dL (74-99); Magnesium 1.8 mg/dL (1.6-2.3); Non-African American GFR(CKD) 52 (>60 ml/min/1.73 sqM); Potassium 3.5 mmol/L (3.5-5.1); Sodium 128 mmol/L (137-145); Total Bilirubin 1.3 mg/dL (0.2-1.3); Total Protein 6.4 g/dL (6.3-8.2)
[2023-12-31 16:53] LABS: Anisocytosis Slight; Basophils % (A) 1 %; Eosinophils # (A) 0.1 k/uL (0-0.7); Eosinophils % (A) 1 %; HCT 36.6 % (34.0-46.0); HGB 10.8 gm/dL (11.4-16.0); Hypochromasia Marked; Lymphocytes # (A) 1.4 k/uL (1.0-4.8); Lymphocytes % (A) 17 %; MCH 21.9 pg (25.0-35.0); MCHC 29.6 g/dL (31.0-37.0); MCV 73.9 fL (80.0-100.0); Mean Platelet Volume 7.8; Microcytosis Moderate; Monocytes # (A) 0.6 k/uL (0-1.0); Monocytes % (A) 8 %; Neutrophils # (A) 5.5 k/uL (1.3-7.7); Neutrophils % (A) 69 %; Platelet Count 205 k/uL (150-450); RBC 4.95 m/uL (3.80-5.40); RDW 19.2 % (11.5-15.5); WBC 7.9 k/uL (3.8-10.6)
[2023-12-31 17:00] LABS: NT-Pro-B-Type Natriuretic Pept 11200 pg/mL
--- NOTE | 2023-12-31 18:18 | XR ---
EXAMINATION TYPE: XR chest 2V DATE OF EXAM: 12/31/2023 5:35 PM CLINICAL INDICATION: Female, 78 years old with history of difficulty breathing; COMPARISON: Chest radiographs from 07/16/2023 TECHNIQUE: XR chest 2V Frontal view of the chest. FINDINGS: Lungs/Pleura: There is no evidence of pleural effusion, focal consolidation, or pneumothorax. Pulmonary vascularity: Pulmonary vascular congestion. Heart/mediastinum: Cardiomediastinal silhouette is enlarged. Atherosclerotic calcifications are seen in the aorta. Three lead cardiac conduction device overlying the left hemithorax with lead tips proj ecting over the right ventricle, right atrium and coronary sinus. Musculoskeletal: No acute osseous pathology. IMPRESSION: Cardiomegaly and mild pulmonary vascular congestion. Correlate with BNP for congestive heart failure. [facility], , 12/31/2023 6:15 PM
[2023-12-31] MEDS ORDERED: NALOXONE 0.4 MG/ML 1 ML VIAL IV PRN (18:49)
[2023-12-31] MEDS ORDERED: ALBUTEROL HFA INHALER INHALATION PRN (19:48)
[2023-12-31] MEDS: ASPIRIN 81 MG PO STA (20:05)
[2023-12-31] MEDS: IPRATROPIUM-ALBUTEROL 3 ML NEB INHALATION SCH (20:47)
[2023-12-31] MEDS: SODIUM BICARBONATE TAB 650 MG TAB PO SCH (21:07)
[2023-12-31] MEDS: ATORVASTATIN 40 MG TAB PO SCH (21:07)
[2023-12-31] MEDS: methylPREDNISolone SOD SUCCI 40 MG/ML 1 ML VIAL IV SCH (21:08)
[2023-12-31] MEDS: APIXABAN 5 MG TAB PO SCH (21:08)
[2023-12-31] MEDS: GABAPENTIN 100 MG CAP PO SCH (21:08)
[2023-12-31] MEDS: FUROSEMIDE 10 MG/ML 4 ML VIAL IV SCH (21:10)
[2023-12-31] MEDS: AZITHROMYCIN 500 MG in SODIUM CHLORIDE 0.9% 250 ML IVPB STA (22:48)
[2024-01-01] MEDS: LEVOTHYROXINE 50 MCG TAB PO SCH (07:45)
[2024-01-01] MEDS ORDERED: CRANBERRY FRUIT EXTRACT 500 MG PO SCH (09:00)
[2024-01-01 09:15] LABS: ALT 26 U/L (8-44); AST 40 U/L (13-35); Albumin 3.9 g/dL (3.8-4.9); Albumin/Globulin Ratio 1.62 Ratio (1.60-3.17); Alkaline Phosphatase 151 U/L (41-126); BUN/Creat Ratio 26.83 Ratio (12.00-20.00); Blood Urea Nitrogen 32.2 mg/dL (9.0-27.0); Calcium 8.7 mg/dL (8.7-10.3); Carbon Dioxide 11.6 mmol/L (21.6-31.8); Chloride 90 mmol/L (96-109); Globulin 2.4 g/dL (1.6-3.3); Glucose 149 mg/dL (70-110); Potassium 3.9 mmol/L (3.5-5.5); Sodium 125 mmol/L (135-145); Total Bilirubin 0.8 mg/dL (0.3-1.2); Total Protein 6.3 g/dL (6.2-8.2)
[2024-01-01 10:09] LABS: Acanthocytes 2+; Basophils # (A) 0.01 X 10*3/uL (0.00-0.10); Basophils % (A) 0.1 %; Elliptocytes 2+; Eosinophils # (A) 0 X 10*3/uL (0.04-0.35); Eosinophils % (A) 0 %; HCT 34.7 % (37.2-46.3); HGB 10.5 g/dL (12.0-15.0); Lymphocytes # (A) 0.42 X 10*3/uL (0.90-5.00); Lymphocytes % (A) 5.9 %; MCH 21.4 pg (27.0-32.0); MCHC 30.3 g/dL (32.0-37.0); MCV 70.7 FL (80.0-97.0); Mean Platelet Volume 10.1 FL (9.5-12.2); Microcytosis (M) 3+; Monocytes # (A) 0.12 X 10*3/uL (0.20-1.00); Monocytes % (A) 1.7 %; NRBC Per 100 WBC 0.02 X 10*3/uL (0.00-0.01); Neutrophils # (A) 6.42 X 10*3/uL (1.80-7.70); Platelet Count 210 X 10*3/uL (140-440); RBC 4.91 X 10*6/uL (4.10-5.20); RDW 20.9 % (11.5-14.5); Schistocytes 1+; WBC 7.06 X 10*3/uL (4.50-10.00)
[2024-01-01] MEDS: FUROSEMIDE 10 MG/ML 4 ML VIAL IV SCH (10:22)
[2024-01-01] MEDS: DAPAGLIFLOZIN PROPANEDIOL 5 MG TABLET PO SCH (10:24)
[2024-01-01] MEDS: ASPIRIN 81 MG PO SCH (10:24)
[2024-01-01] MEDS: CHOLECALCIFEROL 25 MCG (1000 IU) TABLET PO SCH (10:24)
[2024-01-01] MEDS: PANTOPRAZOLE 40 MG TABLET PO SCH (10:25)
[2024-01-01] MEDS: METOPROLOL SUCCINATE (ER) 50 MG TAB.ER.24H PO SCH (10:25)
[2024-01-01] MEDS: allopurinoL 100 MG TAB PO SCH (10:25)
[2024-01-01] MEDS: POTASSIUM CHLORIDE ER 10 MEQ TAB.ER.PRT PO SCH (10:25)
[2024-01-01] MEDS: VIT A,C & E-LUTEIN-MINERALS 1 EACH TAB PO SCH (10:26)
[2024-01-01] MEDS: SPIRONOLACTONE 25 MG TAB PO SCH (10:31)
[2024-01-01] MEDS: APIXABAN 2.5 MG TABLET PO SCH (10:31)
--- NOTE | 2024-01-01 10:57 | P.CNPUL ---
History of Present Illness Consult date: 01/01/24 Requesting physician: Presley E Cam Reason for consult: dyspnea, cough, COPD, abnormal CXR/CT Chief complaint: Shortness of breath, cough, congestion History of present illness: This is a pleasant 78-year-old female patient with a known history of congestive heart failure, chronic obstructive pulmonary disease, gastroesophageal reflux disease, hypertension, hyperlipidemia, gout, hypothyroidism, atrial fibrillation anticoagulated with Eliquis, coronary artery disease with previous stent plac ement, severe pulmonary hypertension. She is a former heavy smoker. She is maintained on oxygen at home at 2 L/min per nasal cannula. She presented here to the emergency room yesterday with increasing shortness of breath, cough and congestion. Chest x-ray revealed cardiomegaly with mild pulmonary vascular congestion. White count 7.0. Hemoglobin 10.5. Platelets 210. Sodium 125. Potassium 3.9. Bicarb 12. BUN 32. Creatinine 1.2. Glucose 149. proBNP 11,200. Viral screen negative. She has been initiated on DuoNeb inhalations, Symbicort, Solu-Medrol. Receiving Lasix 40 mg IV every 8 hours. She is seen today in consultation in the emergency department. Currently sitting up on a s tretcher. Awake and alert in no acute distress. Breathing a bit easier today compared to yesterday. Not back to her baseline. Maintaining good O2 saturations in the mid 90s on 3 L/min per nasal cannula. She is afebrile. Hemodynamically stable. Review of Systems REVIEW OF SYSTEMS: CONSTITUTIONAL: Denies any recent significant weight loss or weight gain. EYES: Denies change in vision. EARS, NOSE, MOUTH, THROAT: Denies headaches, denies sore throat. CARDIOVASCULAR: Denies chest pain, palpitations or syncopal episodes. RESPIRATORY: Positive for shortness of breath, cough, congestion no hemoptysis. GASTROINTESTINAL: Denies change in appetite, denies abdominal pain GENITOURINARY: Denies hematuria, denies infections. MUSKULOSKELETAL: Denies pain, denies swelling. INTEGUMENTARY: Denies rash, denies eczema. NEUROLOGICAL: Denies recent memory loss, no recent seizure activity. PSYCHIATRIC: Denies anxiety, denies depression. HEMATOLOGIC/LYMPHATIC: Denies anemia, denies enlarged lymph nodes. Past Medical History Past Medical History: Atrial Fibrillation, Asthma, Coronary Artery Disease (CAD), Cancer, COPD, Eye Disorder, Hearing Disorder / Deafness, Myocardial Infarction ([place]), Osteoarthritis (OA), Pneumonia, Thyroid Disorder Additional Past Medical History / Comment(s): See Dr Trmible's H&P, Gout, hiatal hernia, Macular Degeneration, Skin Cancer, degenerative disc disease, osteoporosis. UTI 07/01/19. Last Myocardial Infarction Date:: 2011 History of Any Multi-Drug Resistant Organisms: None Reported Past Surgical History: Cardiac Ablation, Cholecystectomy, Heart Catheterization With Stent, Hysterectomy, Orthopedic Surgery, Pacemaker, Tonsillectomy Additional Past Surgical History / Comment(s): Right shoulder surgery, left wrist surgery. Thyroid Nodule removed, sylvia Cataracts, LOOP RECORDER-11/23/17; CHRIO ABLATION 03/08/18 WITH CARDIOVERSION Past Anesthesia/Blood Transfusion Reactions: No Reported Reaction Date of Last Stent Placement:: 2011 Type of Cardiac Device: Permanent Pacemaker Device Placement Date:: 07/2019 Past Psychological History: No Psychological Hx Reported Smoking Status: Former smoker Past Alcohol Use History: None Reported Past Drug Use History: None Reported - Past Family History Mother Family Medical History: Cancer, Congestive Heart Failure (CHF), Myocardial Infarction ([place]), Pneumonia, Pulmonary Embolus Additional Family Medical History / Comment(s): breast CA Father Family Medical History: CVA/TIA, Myocardial Infarction ([place]) Medications and Allergies Home Medications Medication Instructions Recorded Confirmed Type Vit C/E/Zn/Coppr/Lutein/Zeaxan 1 cap PO BID 03/02/15 12/31/23 History [Preservision Areds 2 Softgel] Atorvastatin [Lipitor] 40 mg PO HS #30 tab 03/04/15 12/31/23 Rx allopurinoL [Zyloprim] 100 mg PO DAILY 10/22/18 12/31/23 History Fluticasone/Umeclidin/Vilanter 1 puff INHALATION RT-DAILY 07/01/19 12/31/23 History [John Ellipta 100-62.5-25] Aspirin [[place] Aspirin EC] 81 mg PO DAILY 08/09/19 12/31/23 History Cholecalciferol [Vitamin D3 (25 25 mcg PO DAILY 05/23/20 12/31/23 History Mcg = 1000 Iu)] Ipratropium-Albuterol Nebulize 3 ml INHALATION RT-QID 10/28/21 12/31/23 History [Duoneb 0.5 mg-3 mg/3 ml Soln] Apixaban [Eliquis] 5 mg PO BID 04/09/23 12/31/23 History Sodium Bicarbonate 325 mg PO BID 04/09/23 12/31/23 History calcitrioL 0.25 mcg PO MOWEFR 04/09/23 12/31/23 History Albuterol Sulfate [Ventolin HFA] 2 puff INHALATION RT-QID PRN 7 04/13/23 12/31/23 Rx Days #1 each Furosemide [Lasix] 40 mg PO BID@0900,1600 #60 tab 04/13/23 12/31/23 Rx Levothyroxine Sodium [Synthroid] 50 mcg PO DAILY 07/13/23 12/31/23 History Metoprolol Succinate (ER) [Toprol 50 mg PO DAILY #30 tab 07/18/23 12/31/23 Rx XL] Cranberry Fruit Extract [Cranberry] 500 mg PO BID 12/31/23 12/31/23 History Empagliflozin [Jardiance] 10 mg PO DAILY 12/31/23 12/31/23 History Gabapentin [Neurontin] 100 mg PO BID 12/31/23 12/31/23 History Omeprazole 20 mg PO DAILY 12/31/23 12/31/23 History Potassium Chloride ER [K-Dur 10] 10 meq PO DAILY 12/31/23 12/31/23 History Allergies Allergy/AdvReac Type Severity Reaction Status Date / Time codeine Allergy Itching Verified 12/31/23 18:16 Physical Exam Vitals: Vital Signs Temp Pulse Resp BP Pulse Ox 01/01/24 10:34 70 01/01/24 10:20 67 01/01/24 07:37 97.8 F 70 19 143/62 95 01/01/24 05:45 82 16 118/66 95 01/01/24 04:39 66 01/01/24 04:25 71 01/01/24 02:13 66 16 117/49 01/01/24 00:45 72 01/01/24 00:27 69 12/31/23 21:58 68 16 120/50 92 L 12/31/23 21:01 59 L 12/31/23 20:48 64 12/31/23 17:06 78 12/31/23 16:46 74 12/31/23 15:36 98.0 F 77 18 152/81 92 L Intake and Output 12/31/23 01/01/24 01/01/24 22:59 06:59 14:59 Other: Weight 67.585 kg GENERAL EXAM: Alert, 78-year-old female, on 3 L nasal cannula, fairly comfortable in no apparent distress. HEAD: Normocephalic. EYES: Normal reaction of pupils, equal size. NOSE: Clear with pink turbinates. THROAT: No erythema or exudates. NECK: No masses, no JVD. CHEST: No chest wall deformity. LUNGS: Equal air entry with crackles in the bilateral bases, end expiratory wheeze, diminished. CVS: S1 and S2 normal with no audible murmur, regular rhythm. ABDOMEN: No hepatosplenomegaly, normal bowel sounds, no guarding or rigidity. SPINE: No scoliosis or deformity SKIN: No rashes CENTRAL NERVOUS SYSTEM: No focal deficits, tone is normal in all 4 extremities. EXTREMITIES: There is 1+ peripheral edema. No clubbing, no cyanosis. Peripheral pulses are intact. Results - Laboratory Findings CBC and BMP: 01/01/24 06:08 01/01/24 06:08 PT/INR, D-dimer PT 12.3 sec (10.0-12.5) 12/31/23 16:19 INR 1.1 (<1.2) 12/31/23 16:19 Abnormal lab findings: Abnormal Labs 12/31/23 12/31/23 01/01/24 16:19 16:19 06:08 Hgb 10.8 L 10.5 L Hct 34.7 L MCV 73.9 L 70.7 L MCH 21.9 L 21.4 L MCHC 29.6 L 30.3 L RDW 19.2 H 20.9 H Immature Gran # 0.09 H Lymphocytes # 0.42 L Monocytes # 0.12 L Eosinophils # 0 L NRBC/100 WBC Diff 0.02 H Microcytosis (manual) 3+ A Elliptocytes 2+ A Acanthocytes (Spur) 2+ A Schistocytes 1+ A Sodium 128 L Chloride 96 L Carbon Dioxide Anion Gap BUN 31 H Est GFR (CKD-EPI) BUN/Creatinine Ratio Glucose AST 50 H Alkaline Phosphatase 128 H 01/01/24 06:08 Hgb Hct MCV MCH MCHC RDW Immature Gran # Lymphocytes # Monocytes # Eosinophils # NRBC/100 WBC Diff Microcytosis (manual) Elliptocytes Acanthocytes (Spur) Schistocytes Sodium 125 L Chloride 90 L Carbon Dioxide 11.6 L Anion Gap 23.40 H BUN 32.2 H Est GFR (CKD-EPI) 46 L BUN/Creatinine Ratio 26.83 H Glucose 149 H AST 40 H Alkaline Phosphatase 151 H - Diagnostic Findings Chest x-ray: image reviewed Assessment and Plan Assessment: Acute on chronic hypoxemic respiratory failure secondary to an acute exacerbation of diastolic congestive heart failure Acute on chronic hypoxemic respiratory failure secondary to an acute exacerbation of chronic obstructive pulmonary disease Chronic hypoxemic respiratory failure secondary to COPD, normally on oxygen at 2 L. Maintained on Trelegy and DuoNebs Former heavy smoker Severe pulmonary hypertension Atrial fibrillation, anticoagulated with Eliquis, status post permanent pacemaker implantation Coronary artery disease with previous stent placement Hypertension Hyperlipidemia History of gout Hypothyroidism Hearing disorder Macular degeneration Plan: The patient was seen and evaluated Chest x-ray, labs and medications reviewed Continue bronchodilators, steroids Continue IV diuretics Accurate I&O monitoring Check a procalcitonin Titrate the FiO2 as tolerated Follow-up chest x-ray in a.m. We will continue to follow and make further recommendations based on her clinical status I have personally seen and examined the patient, performed the documentation and the assessment and plan as written. Number of minutes spent on the visit: 20.
[2024-01-01] MEDS: SYMBICORT 80-4.5 MCG INHALER INHALATION SCH (11:22)
[2024-01-01] MEDS: methylPREDNISolone SOD SUCCI 40 MG/ML 1 ML VIAL IV SCH (11:47)
[2024-01-01] MEDS ORDERED: IPRATROPIUM-ALBUTEROL 3 ML NEB INHALATION SCH (12:00)
--- NOTE | 2024-01-01 12:03 | P.CRDCN ---
History of Present Illness Consult date: 01/01/24 History of present illness: - . HPI: This is a 78-year-old lady with a past medical history that includes atrial fibrillation s/p AV node ablation and permanent pacemaker performed years ago. She actually has a biventricular pacemaker. She has history of CAD with prior PCI of right coronary artery in the past. She has oxygen requiring COPD. She came into the hospital complaining of shortness of breath that was worsening had a recent pneumonia for which she took antibiotics. She has been complaining of some productive cough shortness of breath that was progressively worsening but no chest pain. Clinically patient is in a combination of exacerbation of COPD a nd also probably some diastolic heart failure. Her JVD is elevated she has what seems to be pulmonary hypertension as well. Since arrival after Lasix her breathing has improved somewhat. She has no pain in the chest at this time.. RELEVANT PAST MEDICAL HISTORY: Remarkable for atrial fibrillation status post AV node ablation and a permanent pacemaker which is a biventricular pacemaker, oxygen requiring COPD, with prior stenting of RCA, hypertension and hyperlipidemia.. MEDICATIONS: Continues include vitamin supplements allopurinol fluticasone inhaler Eliquis 5 mg twice daily Calcitrol, Synthroid 50 mcg daily atorvastatin 40 mg daily Lasix 40 mg p.o. twice daily omeprazole and potassium supplement ALLERGIES: Codeine. REVIEW OF SYSTEMS: Remarkable for shortness of breath cough with productive sputum no chest pain occasional palpitations no syncope. PHYSICIAL EXAM: Vitals are stable JVD is elevated 1 to 2 cm no carotid bruit S1- S2 heard normally short systolic murmur at the base second heart sound is preserved lungs reveal diminished air entry abdomen is soft lower extremities r eveal bilateral mild edema diminished pulses Central nervous system grossly no focal deficits. IMPRESSION: 1. Exacerbation of congestive heart failure probably diastolic. 2. Exacerbation of COPD. 3. Pulmonary hypertension moderate to severe. 4. Atrial fibrillation s/p AV node ablation and dual-chamber/biventricular pacemaker. 5.. RECOMMENDATIONS: Aggressive diuresis, dose of Aldactone decrease Eliquis to 2.5 mg twice daily because of bruising and usage of steroids check BMP in the morning prognosis remains guarded. Past Medical History Past Medical History: Atrial Fibrillation, Asthma, Coronary Artery Disease (CAD), Cancer, COPD, Eye Disorder, Hearing Disorder / Deafness, Myocardial Infarction ([place]), Osteoarthritis (OA), Pneumonia, Thyroid Disorder Additional Past Medical History / Comment(s): See Dr Trimble's H&P, Gout, hiatal hernia, Macular Degeneration, Skin Cancer, degenerative disc disease, osteoporosis. UTI 07/01/19. Last Myocardial Infarction Date:: 2011 History of Any Multi-Drug Resistant Organisms: None Reported Past Surgical History: Cardiac Ablation, Cholecystectomy, Heart Catheterization With Stent, Hysterectomy, Orthopedic Surgery, Pacemaker, Tonsillectomy Additional Past Surgical History / Comment(s): Right shoulder surgery, left wrist surgery. Thyroid Nodule removed, sylvia Cataracts, LOOP RECORDER-11/23/17; CHRIO ABLATION 03/08/18 WITH CARDIOVERSION Past Anesthesia/Blood Transfusion Reactions: No Reported Reaction Date of Last Stent Placement:: 2011 Type of Cardiac Device: Permanent Pacemaker Device Placement Date:: 07/2019 Past Psychological History: No Psychological Hx Reported Smoking Status: Former smoker Past Alcohol Use History: None Reported Past Drug Use History: None Reported - Past Family History Mother Family Medical History: Cancer, Congestive Heart Failure (CHF), Myocardial Infarction ([place]), Pneumonia, Pulmonary Embolus Additional Family Medical History / Comment(s): breast CA Father Family Medical History: CVA/TIA, Myocardial Infarction ([place]) Medications and Allergies Home Medications Medication Instructions Recorded Confirmed Type Vit C/E/Zn/Coppr/Lutein/Zeaxan 1 cap PO BID 03/02/15 12/31/23 History [Preservision Areds 2 Softgel] Atorvastatin [Lipitor] 40 mg PO HS #30 tab 03/04/15 12/31/23 Rx allopurinoL [Zyloprim] 100 mg PO DAILY 10/22/18 12/31/23 History Fluticasone/Umeclidin/Vilanter 1 puff INHALATION RT-DAILY 07/01/19 12/31/23 History [Trelegy Ellipta 100-62.5-25] Aspirin [[place] Aspirin EC] 81 mg PO DAILY 08/09/19 12/31/23 History Cholecalciferol [Vitamin D3 (25 25 mcg PO DAILY 05/23/20 12/31/23 History Mcg = 1000 Iu)] Ipratropium-Albuterol Nebulize 3 ml INHALATION RT-QID 10/28/21 12/31/23 History [Duoneb 0.5 mg-3 mg/3 ml Soln] Apixaban [Eliquis] 5 mg PO BID 04/09/23 12/31/23 History Sodium Bicarbonate 325 mg PO BID 04/09/23 12/31/23 History calcitrioL 0.25 mcg PO MOWEFR 04/09/23 12/31/23 History Albuterol Sulfate [Ventolin HFA] 2 puff INHALATION RT-QID PRN 7 04/13/23 12/31/23 Rx Days #1 each Furosemide [Lasix] 40 mg PO BID@0900,1600 #60 tab 04/13/23 12/31/23 Rx Levothyroxine Sodium [Synthroid] 50 mcg PO DAILY 07/13/23 12/31/23 History Metoprolol Succinate (ER) [Toprol 50 mg PO DAILY #30 tab 07/18/23 12/31/23 Rx XL] Cranberry Fruit Extract [Cranberry] 500 mg PO BID 12/31/23 12/31/23 History Empagliflozin [Jardiance] 10 mg PO DAILY 12/31/23 12/31/23 History Gabapentin [Neurontin] 100 mg PO BID 12/31/23 12/31/23 History Omeprazole 20 mg PO DAILY 12/31/23 12/31/23 History Potassium Chloride ER [K-Dur 10] 10 meq PO DAILY 12/31/23 12/31/23 History Allergies Allergy/AdvReac Type Severity Reaction Status Date / Time codeine Allergy Itching Verified 12/31/23 18:16 Physical Exam Vitals: Vital Signs Temp Pulse Resp BP Pulse Ox 01/01/24 10:34 70 01/01/24 10:20 67 01/01/24 07:37 97.8 F 70 19 143/62 95 01/01/24 05:45 82 16 118/66 95 01/01/24 04:39 66 01/01/24 04:25 71 01/01/24 02:13 66 16 117/49 01/01/24 00:45 72 01/01/24 00:27 69 12/31/23 21:58 68 16 120/50 92 L 12/31/23 21:01 59 L 12/31/23 20:48 64 12/31/23 17:06 78 12/31/23 16:46 74 12/31/23 15:36 98.0 F 77 18 152/81 92 L Intake and Output 12/31/23 01/01/24 01/01/24 22:59 06:59 14:59 Other: Weight 67.585 kg Results 01/01/24 06:08 01/01/24 06:08 Cardiac Enzymes 12/31/23 01/01/24 Range/Units 16:19 06:08 AST 50 H 40 H (14-36) U/L Coagulation 12/31/23 Range/Units 16:19 PT 12.3 (10.0-12.5) sec APTT 23.3 (22.0-30.0) sec CBC 12/31/23 01/01/24 Range/Units 16:19 06:08 WBC 7.9 7.06 (3.8-10.6) k/uL RBC 4.95 4.91 (3.80-5.40) m/uL Hgb 10.8 L 10.5 L (11.4-16.0) gm/dL Hct 36.6 34.7 L (34.0-46.0) % Plt Count 205 210 (150-450) k/uL Comprehensive Metabolic Panel 12/31/23 01/01/24 Range/Units 16:19 06:08 Sodium 128 L 125 L (137-145) mmol/L Potassium 3.5 3.9 (3.5-5.1) mmol/L Chloride 96 L 90 L (98-107) mmol/L Carbon Dioxide 23 11.6 L (22-30) mmol/L BUN 31 H 32.2 H (7-17) mg/dL Creatinine 1.04 1.2 (0.52-1.04) mg/dL Glucose 80 149 H (74-99) mg/dL Calcium 8.9 8.7 (8.4-10.2) mg/dL AST 50 H 40 H (14-36) U/L ALT 26 26 (4-34) U/L Alkaline Phosphatase 128 H 151 H (38-126) U/L Total Protein 6.4 6.3 (6.3-8.2) g/dL Albumin 3.7 3.9 (3.5-5.0) g/dL Current Medications Generic Name Dose Route Start Last Admin Trade Name Freq PRN Reason Stop Dose Admin Albuterol Sulfate 2 puff 12/31/23 19:48 Albuterol Hfa Inhaler INHALATION RT-QID PRN Shortness Of Breath Albuterol/Ipratropium 3 ml 12/31/23 20:00 01/01/24 10:20 Ipratropium-Albuterol 3 Ml Neb INHALATION 3 ml RT-Q4H MILAN Administration Allopurinol 100 mg 01/01/24 09:00 01/01/24 10:25 Allopurinol 100 Mg Tab PO 100 mg DAILY MILAN Administration Apixaban 2.5 mg 01/01/24 10:15 01/01/24 10:31 Apixaban 2.5 Mg Tablet PO 2.5 mg BID MILAN Administration Protocol Aspirin 81 mg 01/01/24 09:00 01/01/24 10:24 Aspirin 81 Mg PO 81 mg DAILY MILAN Administration Atorvastatin Calcium 40 mg 12/31/23 21:00 12/31/23 21:07 Atorvastatin 40 Mg Tab PO 40 mg HS MILAN Administration Budesonide/Formoterol Fumarate 2 puff 01/01/24 20:00 Symbicort 160-4.5 Mcg Inhaler INHALATION RT-BID MILAN Calcitriol 0.25 mcg 01/01/24 09:00 01/01/24 10:24 Calcitriol 0.25 Mcg Cap PO 0.25 mcg MOWEFR MILAN Administration Cholecalciferol 25 mcg 01/01/24 09:00 01/01/24 10:24 Cholecalciferol 25 Mcg (1000 Iu) Tablet PO 25 mcg DAILY MILAN Administration Dapagliflozin 5 mg 01/01/24 09:00 01/01/24 10:24 Dapagliflozin Propanediol 5 Mg Tablet PO 5 mg DAILY MILAN Administration Furosemide 40 mg 01/01/24 10:15 01/01/24 10:22 Furosemide 10 Mg/Ml 4 Ml Vial IV 40 mg Q8HR MILAN Administration Gabapentin 100 mg 12/31/23 21:00 01/01/24 10:24 Gabapentin 100 Mg Cap PO 100 mg BID MILAN Administration Levothyroxine Sodium 50 mcg 01/01/24 09:00 01/01/24 07:45 Levothyroxine 50 Mcg Tab PO 50 mcg DAILY MILAN Administration Methylprednisolone Sodium Succinate 40 mg 01/01/24 12:00 01/01/24 11:47 Methylprednisolone Sod Succi 40 Mg/Ml 1 Ml Vial IV 40 mg Q6HR MILAN Administration Metoprolol Succinate 50 mg 01/01/24 09:00 01/01/24 10:25 Metoprolol Succinate (Er) 50 Mg Tab.Er.24h PO 50 mg DAILY MILAN Administration Multivitamins/Minerals 1 each 01/01/24 09:00 01/01/24 10:26 Vit A,C & N-Rmokvq-Lhfiuhlp 1 Each Tab PO 1 each BID MILAN Administration Naloxone HCl 0.2 mg 12/31/23 18:49 Naloxone 0.4 Mg/Ml 1 Ml Vial IV Q2M PRN Opioid Reversal Pantoprazole Sodium 40 mg 01/01/24 09:00 01/01/24 10:25 Pantoprazole 40 Mg Tablet PO 40 mg DAILY MILAN Administration Potassium Chloride 10 meq 01/01/24 09:00 01/01/24 10:25 Potassium Chloride Er 10 Meq Tab.Er.Prt PO 10 meq DAILY MILAN Administration Sodium Bicarbonate 325 mg 12/31/23 21:00 01/01/24 10:25 Sodium Bicarbonate Tab 650 Mg Tab PO 325 mg BID MILAN Administration Spironolactone 12.5 mg 01/01/24 10:15 01/01/24 10:31 Spironolactone 25 Mg Tab PO 12.5 mg DAILY MILAN Administration Intake and Output 12/31/23 01/01/24 01/01/24 22:59 06:59 14:59 Other: Weight 67.585 kg 01/01/24 06:08 01/01/24 06:08
--- NOTE | 2024-01-01 12:08 | P.PN ---
Subjective Progress Note Date: 01/01/24 HPI: Gentleman is 73 years of age. He came into the hospital with somewhat disoriented not sleeping well for a while. But he is doing great now feels well no chest pain or shortness of breath he has atrial fibrillation with a controlled ventricular rate and unremarkable cardiac cath in November 2018. Brian serrano vitals are stable S1-S2 heard normally irregularity and rhythm noted lungs reveal decent air entry abdomen and lower EXTR exam is unchanged. I am recommending that he can be discharged today and follow-up with his PCP and come back and see Dr. Steward who he sees on a regular basis in about 2 to 3 weeks. Same medical regimen advised to be compliant with medications including anticoagulation. PHYSICIAL EXAM:. IMPRESSION: 1.. 2.. 3.. 4.. 5.. RECOMMENDATIONS:. Objective - Vital Signs Vital signs: Vital Signs Temp 97.8 F 01/01/24 07:37 Pulse 70 01/01/24 10:34 Resp 19 01/01/24 07:37 BP 143/62 01/01/24 07:37 Pulse Ox 95 01/01/24 07:37 FiO2 Intake & Output 12/31/23 01/01/24 01/01/24 18:59 06:59 18:59 Weight 67.585 kg - Labs CBC & Chem 7: 01/01/24 06:08 01/01/24 06:08 Labs: Abnormal Lab Results - Last 24 Hours (Table) 12/31/23 12/31/23 01/01/24 Range/Units 16:19 16:19 06:08 Hgb 10.8 L 10.5 L (11.4-16.0) gm/dL Hct 34.7 L (37.2-46.3) % MCV 73.9 L 70.7 L (80.0-100.0) fL MCH 21.9 L 21.4 L (25.0-35.0) pg MCHC 29.6 L 30.3 L (31.0-37.0) g/dL RDW 19.2 H 20.9 H (11.5-15.5) % Immature Gran # 0.09 H (0.00-0.04) X 10*3/uL Lymphocytes # 0.42 L (0.90-5.00) X 10*3/uL Monocytes # 0.12 L (0.20-1.00) X 10*3/uL Eosinophils # 0 L (0.04-0.35) X 10*3/uL NRBC/100 WBC Diff 0.02 H (0.00-0.01) X 10*3/uL Microcytosis (manual) 3+ A Elliptocytes 2+ A Acanthocytes (Spur) 2+ A Schistocytes 1+ A Sodium 128 L (137-145) mmol/L Chloride 96 L (98-107) mmol/L Carbon Dioxide (21.6-31.8) mmol/L Anion Gap (4.00-12.00) mmol/L BUN 31 H (7-17) mg/dL Est GFR (CKD-EPI) (>=60) BUN/Creatinine Ratio (12.00-20.00) Ratio Glucose (70-110) mg/dL AST 50 H (14-36) U/L Alkaline Phosphatase 128 H (38-126) U/L 01/01/24 Range/Units 06:08 Hgb (11.4-16.0) gm/dL Hct (37.2-46.3) % MCV (80.0-100.0) fL MCH (25.0-35.0) pg MCHC (31.0-37.0) g/dL RDW (11.5-15.5) % Immature Gran # (0.00-0.04) X 10*3/uL Lymphocytes # (0.90-5.00) X 10*3/uL Monocytes # (0.20-1.00) X 10*3/uL Eosinophils # (0.04-0.35) X 10*3/uL NRBC/100 WBC Diff (0.00-0.01) X 10*3/uL Microcytosis (manual) Elliptocytes Acanthocytes (Spur) Schistocytes Sodium 125 L (137-145) mmol/L Chloride 90 L (98-107) mmol/L Carbon Dioxide 11.6 L (21.6-31.8) mmol/L Anion Gap 23.40 H (4.00-12.00) mmol/L BUN 32.2 H (7-17) mg/dL Est GFR (CKD-EPI) 46 L (>=60) BUN/Creatinine Ratio 26.83 H (12.00-20.00) Ratio Glucose 149 H (70-110) mg/dL AST 40 H (14-36) U/L Alkaline Phosphatase 151 H (38-126) U/L
[2024-01-01] MEDS ORDERED: ALPRAZolam 0.25 MG TAB PO PRN (13:02)
--- NOTE | 2024-01-01 13:40 | P.HPIM ---
History of Present Illness History of present illness;78-year-old female with a past medical history of COPD (on 3 L at home), CAD, atrial fibrillation (on Eliquis), hypothyroidism, and dyslipidemia presents with complaints of worsening shortness of breath and productive cough. Patient reports her symptoms have been going on for few weeks but have worsened over the last day. States she was recently treated outpatient for pneumonia with oral antibiotics, and reports she has completed the course of antibiotics. Patient reports she thinks this is her COPD flaring up. Patient denies fever, chills, nausea, vomiting, diarrhea, abdominal pain, and chest pain but admits to worsening productive cough with thick yellow mucus. Reports a productive cough is not unusual for her but seeing yellow and green mucus is new over the last couple of days. Initial lab work from the ER was significant for WBC 7.9, hemoglobin 10.8, MCV 73.9, sodium 128, creatinine 1.04, AST 50, ALT 26, alkaline phosphatase 128, BNP 11,200, and influenza type A and B, RSV, and SARS COVID negative. EKG done in the ER showed heart rate of 62 bpm, no ST segment elevation or depression seen, no T-wave inversions seen. Electronic ventricular pacemaker ER CXR: Cardiomegaly and mild pulmonary vascular congestion. Patient admitted to internal medicine service REVIEW OF SYSTEMS: CONSTITUTIONAL: No fever, no malaise, no fatigue. HEENT: No recent visual problems or hearing problems. Denied any sore throat. CARDIOVASCULAR: No chest pain, orthopnea, PND, no palpitations, no syncope. PULMONARY: No shortness of breath, no cough, no hemoptysis. GASTROINTESTINAL: No diarrhea, no nausea, no vomiting, no abdominal pain. NEUROLOGICAL: No headaches, no weakness, no numbness. HEMATOLOGICAL: Denies any bleeding or petechiae. GENITOURINARY: Denies any burning micturition, frequency, or urgency. MUSCULOSKELETAL/RHEUMATOLOGICAL: Denies any joint pain, swelling, or any muscle pain. ENDOCRINE: Denies any polyuria or polydipsia. The rest of the 14-point review of systems is negative. PHYSICAL EXAMINATION: GENERAL: The patient is alert and oriented x3, not in any acute distress. Well developed, well nourished. HEENT: Pupils are round and equally reacting to light. EOMI. No scleral icterus. No conjunctival pallor. Normocephalic, atraumatic. No pharyngeal erythema. No thyromegaly. CARDIOVASCULAR: S1 and S2 present. No murmurs, rubs, or gallops. PULMONARY: Chest is clear to auscultation b/l, no wheezing or crackles. ABDOMEN: Soft, nontender, nondistended, normoactive bowel sounds. No palpable organomegaly. MUSCULOSKELETAL: No joint swelling or deformity. EXTREMITIES: No cyanosis, 3+ pitting edema bilaterally up to the mid to upper calf and down to the feet NEUROLOGICAL: Gross neurological examination did not reveal any focal deficits. SKIN: No rashes. Assessment & Plan: Acute: #Acute on chronic hypoxic respiratory failure: Potentially secondary to COPD exacerbation versus congestive heart failure exacerbation Currently saturating well on 3 L O2 Continue Symbicort 160-4.5 mcg, Solu-Medrol 40 mg IV every 6 Pulmonology on consult, in agreement with plan for continue breathing treatments, titrated FiO2, and ordering procalcitonin #Diastolic CHF: Echo from March 2023 shows EF of 60 to 65% Continue 40 mg IV Lasix 3 times daily Strict I's and O's 1500 cc fluid restriction Daily weights Cardiology on consult, appreciate further recommendations. #Pulmonary hypertension moderate to severe: Recent echo indicates right heart strain secondary to pulmonary hypertension, COPD also can be contributing to this pulmonary hypertension Continue breathing treatments Continue Lasix 40 3 times daily Continue monitor #Atrial fibrillation status post AV node ablation and dual-chamber/biventricular pacemaker: Continue home Eliquis 2.5 mg p.o. twice daily Chronic: #Dyslipidemia: Continue home medication #Hypothyroidism: #Atrial fibrillation: Continue home Eliquis F: None E: Sodium bicarbonate and magnesium N: Heart healthy diet DVT ppx: Eliquis 2.5 mg p.o. twice daily GI ppx: Protonix 40 mg p.o. daily Dispo: Pending clinical course Nette Ortega MD PGY-1 FM Dictation was produced using [employer] dictation software. please excuse any grammatical, word or spelling errors. Past Medical History Past Medical History: Atrial Fibrillation, Asthma, Coronary Artery Disease (CAD), Cancer, COPD, Eye Disorder, Hearing Disorder / Deafness, Myocardial Infarction ([place]), Osteoarthritis (OA), Pneumonia, Thyroid Disorder Additional Past Medical History / Comment(s): See Dr Trimble's H&P, Gout, hiatal hernia, Macular Degeneration, Skin Cancer, degenerative disc disease, osteoporosis. UTI 07/01/19. Last Myocardial Infarction Date:: 2011 History of Any Multi-Drug Resistant Organisms: None Reported Past Surgical History: Cardiac Ablation, Cholecystectomy, Heart Catheterization With Stent, Hysterectomy, Orthopedic Surgery, Pacemaker, Tonsillectomy Additional Past Surgical History / Comment(s): Right shoulder surgery, left wrist surgery. Thyroid Nodule removed, sylvia Cataracts, LOOP RECORDER-11/23/17; CHRIO ABLATION 03/08/18 WITH CARDIOVERSION Past Anesthesia/Blood Transfusion Reactions: No Reported Reaction Date of Last Stent Placement:: 2011 Type of Cardiac Device: Permanent Pacemaker Device Placement Date:: 07/2019 Past Psychological History: No Psychological Hx Reported Smoking Status: Former smoker Past Alcohol Use History: None Reported Past Drug Use History: None Reported - Past Family History Mother Family Medical History: Cancer, Congestive Heart Failure (CHF), Myocardial Infarction ([place]), Pneumonia, Pulmonary Embolus Additional Family Medical History / Comment(s): breast CA Father Family Medical History: CVA/TIA, Myocardial Infarction ([place]) Medications and Allergies Home Medications Medication Instructions Recorded Confirmed Type Vit C/E/Zn/Coppr/Lutein/Zeaxan 1 cap PO BID 03/02/15 12/31/23 History [Preservision Areds 2 Softgel] Atorvastatin [Lipitor] 40 mg PO HS #30 tab 03/04/15 12/31/23 Rx allopurinoL [Zyloprim] 100 mg PO DAILY 10/22/18 12/31/23 History Fluticasone/Umeclidin/Vilanter 1 puff INHALATION RT-DAILY 07/01/19 12/31/23 History [John Ellipta 100-62.5-25] Aspirin [[place] Aspirin EC] 81 mg PO DAILY 08/09/19 12/31/23 History Cholecalciferol [Vitamin D3 (25 25 mcg PO DAILY 05/23/20 12/31/23 History Mcg = 1000 Iu)] Ipratropium-Albuterol Nebulize 3 ml INHALATION RT-QID 10/28/21 12/31/23 History [Duoneb 0.5 mg-3 mg/3 ml Soln] Apixaban [Eliquis] 5 mg PO BID 04/09/23 12/31/23 History Sodium Bicarbonate 325 mg PO BID 04/09/23 12/31/23 History calcitrioL 0.25 mcg PO MOWEFR 04/09/23 12/31/23 History Albuterol Sulfate [Ventolin HFA] 2 puff INHALATION RT-QID PRN 7 04/13/23 12/31/23 Rx Days #1 each Furosemide [Lasix] 40 mg PO BID@0900,1600 #60 tab 04/13/23 12/31/23 Rx Levothyroxine Sodium [Synthroid] 50 mcg PO DAILY 07/13/23 12/31/23 History Metoprolol Succinate (ER) [Toprol 50 mg PO DAILY #30 tab 07/18/23 12/31/23 Rx XL] Cranberry Fruit Extract [Cranberry] 500 mg PO BID 12/31/23 12/31/23 History Empagliflozin [Jardiance] 10 mg PO DAILY 12/31/23 12/31/23 History Gabapentin [Neurontin] 100 mg PO BID 12/31/23 12/31/23 History Omeprazole 20 mg PO DAILY 12/31/23 12/31/23 History Potassium Chloride ER [K-Dur 10] 10 meq PO DAILY 12/31/23 12/31/23 History Allergies Allergy/AdvReac Type Severity Reaction Status Date / Time codeine Allergy Itching Verified 12/31/23 18:16 Physical Exam Vitals: Vital Signs Temp Pulse Resp BP Pulse Ox 01/01/24 05:45 82 16 118/66 95 01/01/24 04:39 66 01/01/24 04:25 71 01/01/24 02:13 66 16 117/49 01/01/24 00:45 72 01/01/24 00:27 69 12/31/23 21:58 68 16 120/50 92 L 12/31/23 21:01 59 L 12/31/23 20:48 64 12/31/23 17:06 78 12/31/23 16:46 74 12/31/23 15:36 98.0 F 77 18 152/81 92 L Intake and Output 12/31/23 01/01/24 01/01/24 22:59 06:59 14:59 Other: Weight 67.585 kg Results CBC & Chem 7: 01/01/24 06:08 01/01/24 06:08 Labs: Abnormal Lab Results - Last 24 Hours (Table) 12/31/23 12/31/23 Range/Units 16:19 16:19 Hgb 10.8 L (11.4-16.0) gm/dL MCV 73.9 L (80.0-100.0) fL MCH 21.9 L (25.0-35.0) pg MCHC 29.6 L (31.0-37.0) g/dL RDW 19.2 H (11.5-15.5) % Sodium 128 L (137-145) mmol/L Chloride 96 L (98-107) mmol/L BUN 31 H (7-17) mg/dL AST 50 H (14-36) U/L Alkaline Phosphatase 128 H (38-126) U/L
[2024-01-01] MEDS: HYDROcodone/APAP 5-325MG 1 EACH TAB PO STA (18:45)
[2024-01-01] MEDS: SYMBICORT 160-4.5 MCG INHALER INHALATION SCH (21:40)
[2024-01-02] MEDS: HYDROcodone/APAP 5-325MG 1 EACH TAB PO PRN (00:47)
[2024-01-02 06:08] LABS: Anisocytosis Slight; HCT 33.9 % (34.0-46.0); HGB 10.1 gm/dL (11.4-16.0); Hypochromasia Marked; MCH 21.9 pg (25.0-35.0); MCHC 29.8 g/dL (31.0-37.0); MCV 73.5 fL (80.0-100.0); Mean Platelet Volume 6.8; Microcytosis Moderate; Platelet Count 199 k/uL (150-450); RBC 4.61 m/uL (3.80-5.40); RDW 19.3 % (11.5-15.5); WBC 10.5 k/uL (3.8-10.6)
[2024-01-02 06:21] LABS: African American GFR (CKD) 52 (>60 ml/min/1.73 sqM); Anion Gap 8 mmol/L; Blood Urea Nitrogen 39 mg/dL (7-17); Calcium 8.7 mg/dL (8.4-10.2); Carbon Dioxide 20 mmol/L (22-30); Chloride 94 mmol/L (98-107); Glucose 118 mg/dL (74-99); Non-African American GFR(CKD) 45 (>60 ml/min/1.73 sqM); Sodium 122 mmol/L (137-145)
[2024-01-02] MEDS: FUROSEMIDE 40 MG TAB PO SCH (08:32)
--- NOTE | 2024-01-02 11:38 | P.PN ---
Subjective HISTORY OF PRESENT ILLNESS: HPI: This is a 78-year-old lady with a past medical history that includes atrial fibrillation s/p AV node ablation and permanent pacemaker performed years ago. She actually has a biventricular pacemaker. She has history of CAD with prior PCI of right coronary artery in the past. She has oxygen requiring COPD. She came into the hospital complaining of shortness of breath that was worsening had a recent pneumonia for which she took antibiotics. She has been complaining of some productive cough shortness of breath that was progressively worsening but no chest pain. Clinically patient is in a combination of exacerbation of COPD and also probably some diastolic heart failure. Her JVD is elevated she has wh at seems to be pulmonary hypertension as well. Since arrival after Lasix her breathing has improved somewhat. She has no pain in the chest at this time.. 01/02/2024 Patient examined this morning at the bedside. She currently denies any chest pain or pressure. She reports improvement in her shortness of breath. She remains on IV Lasix. Sodium this morning decreased to 122. PHYSICAL EXAM: VITAL SIGNS: Reviewed. GENERAL: Well-developed in no acute distress. NECK: Supple. No JVD or thyromegaly LUNGS: Respirations even and unlabored. Lungs essentially clear to auscultation bilaterally. HEART: Regular rate and rhythm. S1 and S2 heard. Systolic murmur noted. EXTREMITIES: Normal range of motion. No clubbing or cyanosis. Peripheral pulses intact. Trace bilateral lower extremity edema ASSESSMENT: Shortness of breath Acute on chronic heart failure with preserved EF, 60-65% Hyponatremia Acute COPD exacerbation Moderate to severe pulmonary hypertension Persistent atrial fibrillation status post AV donte ablation and dual-chamber pacemaker implantation Coronary arteries with previous stenting of the RCA Hypertension Hyperlipidemia PLAN: Discontinue IV Lasix. Begin oral Lasix 40 mg twice a day Continue additional cardiac medications Repeat BMP in a.m. Consult nephrology for worsening hyponatremia Further recommendations pending patient course Nurse practitioner note has been reviewed by physician. Signing provider agrees with the documented findings, assessment, and plan of care documented by COMPUTER ENGINEERING PROFESSOR as a scribe. Objective - Vital Signs Vital signs: Vital Signs Temp 97.2 F L 01/02/24 08:00 Pulse 76 01/02/24 11:10 Resp 18 01/02/24 08:00 BP 151/79 01/02/24 08:00 Pulse Ox 95 01/02/24 08:00 FiO2 Intake & Output 01/01/24 01/02/24 01/02/24 18:59 06:59 18:59 Intake Total 118 Balance 118 Weight 67.585 kg Intake: Oral 118 Other: Voiding Method Toilet - Labs CBC & Chem 7: 01/02/24 05:20 01/02/24 05:20 Labs: Abnormal Lab Results - Last 24 Hours (Table) 01/02/24 01/02/24 Range/Units 05:20 05:20 Hgb 10.1 L (11.4-16.0) gm/dL Hct 33.9 L (34.0-46.0) % MCV 73.5 L (80.0-100.0) fL MCH 21.9 L (25.0-35.0) pg MCHC 29.8 L (31.0-37.0) g/dL RDW 19.3 H (11.5-15.5) % Sodium 122 L (137-145) mmol/L Chloride 94 L (98-107) mmol/L Carbon Dioxide 20 L (22-30) mmol/L BUN 39 H (7-17) mg/dL Creatinine 1.17 H (0.52-1.04) mg/dL Glucose 118 H (74-99) mg/dL
--- NOTE | 2024-01-02 11:43 | P.NPCON ---
History of Present Illness - Reason for Consult chronic renal failure, hyponatremia - History of Present Illness Reason for consultation: Hyponatremia and chronic kidney disease History of present illness: Patient is a 78-year-old female seen in renal consultation for chronic kidney disease and hyponatremia. Patient has chronic kidney disease stage IIIb with baseline creatinine 1.2-1.3 secondary to nephrosclerosis and cardiorenal syndrome. GFR is near baseline. Sodium level was 128 on admission and is down to 122 today. Patient came to the hospital on December 31, 2023 due to shortness of breath and a productive cough. Patient states the symptoms started on Monday. Patient has a history of COPD and is maintained on 3 L home oxygen. She is currently on 3 L in the hospital as well. She does complain of edema in the lower extremities. Denies use of nonsteroidals. No history of diabetes. She does have a history of coronary disease with a stent. No nausea vomiting or diarrhea. She does take Lasix at home 40 mg twice daily. Chest x-ray was suggestive of mild vascular congestion. She is currently receiving oral Lasix 40 mg twice daily as well as Farxiga 5 mg once daily. Up until yesterday she was receiving IV Lasix. Vital signs are stable. General: No acute distress. HEENT: Head exam is unremarkable. On nasal cannula. LUNGS: No audible rhonchi or wheezes. HEART: Rate and Rhythm are regular. ABDOMEN: Nontender. EXTREMITITES: 2+ edema. Past Medical History Past Medical History: Atrial Fibrillation, Asthma, Coronary Artery Disease (C AD), Cancer, COPD, Eye Disorder, Hearing Disorder / Deafness, Myocardial Infarction (ME), Osteoarthritis (OA), Pneumonia, Thyroid Disorder Additional Past Medical History / Comment(s): Gout, hiatal hernia, Macular Degeneration, Skin Cancer, degenerative disc disease, osteoporosis. UTI 07/01/19. Last Myocardial Infarction Date:: 2011 History of Any Multi-Drug Resistant Organisms: None Reported Past Surgical History: Cardiac Ablation, Cholecystectomy, Heart Catheterization With Stent, Hysterectomy, Orthopedic Surgery, Pacemaker, Tonsillectomy Additional Past Surgical History / Comment(s): Right shoulder surgery, left wrist surgery. Thyroid Nodule removed, sylvia Cataracts, LOOP RECORDER-11/23/17; CHRIO ABLATION 03/08/18 WITH CARDIOVERSION Past Anesthesia/Blood Transfusion Reactions: No Reported Reaction Date of Last Stent Placement:: 2011 Type of Cardiac Device: Permanent Pacemaker Device Placement Date:: 07/2019 Smoking Status: Former smoker - Past Family History Mother Family Medical History: Cancer, Congestive Heart Failure (CHF), Myocardial Infarction (ME), Pneumonia, Pulmonary Embolus Additional Family Medical History / Comment(s): breast CA Father Family Medical History: CVA/TIA, Myocardial Infarction (ME) Medications and Allergies Home Medications Medication Instructions Recorded Confirmed Type Vit C/E/Zn/Coppr/Lutein/Zeaxan 1 cap PO BID 03/02/15 12/31/23 History [Preservision Areds 2 Softgel] Atorvastatin [Lipitor] 40 mg PO HS #30 tab 03/04/15 12/31/23 Rx allopurinoL [Zyloprim] 100 mg PO DAILY 10/22/18 12/31/23 History Fluticasone/Umeclidin/Vilanter 1 puff INHALATION RT-DAILY 07/01/19 12/31/23 History [Edwinleroseline Ellipta 100-62.5-25] Aspirin [[place] Aspirin EC] 81 mg PO DAILY 08/09/19 12/31/23 History Cholecalciferol [Vitamin D3 (25 25 mcg PO DAILY 05/23/20 12/31/23 History Mcg = 1000 Iu)] Ipratropium-Albuterol Nebulize 3 ml INHALATION RT-QID 10/28/21 12/31/23 History [Duoneb 0.5 mg-3 mg/3 ml Soln] Apixaban [Eliquis] 5 mg PO BID 04/09/23 12/31/23 History Sodium Bicarbonate 325 mg PO BID 04/09/23 12/31/23 History calcitrioL 0.25 mcg PO MOWEFR 04/09/23 12/31/23 History Albuterol Sulfate [Ventolin HFA] 2 puff INHALATION RT-QID PRN 7 04/13/23 12/31/23 Rx Days #1 each Furosemide [Lasix] 40 mg PO BID@0900,1600 #60 tab 04/13/23 12/31/23 Rx Levothyroxine Sodium [Synthroid] 50 mcg PO DAILY 07/13/23 12/31/23 History Metoprolol Succinate (ER) [Toprol 50 mg PO DAILY #30 tab 07/18/23 12/31/23 Rx XL] Cranberry Fruit Extract [Cranberry] 500 mg PO BID 12/31/23 12/31/23 History Empagliflozin [Jardiance] 10 mg PO DAILY 12/31/23 12/31/23 History Gabapentin [Neurontin] 100 mg PO BID 12/31/23 12/31/23 History Omeprazole 20 mg PO DAILY 12/31/23 12/31/23 History Potassium Chloride ER [K-Dur 10] 10 meq PO DAILY 12/31/23 12/31/23 History Allergies Allergy/AdvReac Type Severity Reaction Status Date / Time codeine Allergy Itching Verified 12/31/23 18:16 Physical Exam Vitals: Vital Signs Temp Pulse Pulse Resp BP Pulse Ox 01/02/24 11:10 76 01/02/24 11:01 76 01/02/24 08:00 97.2 F L 67 18 151/79 95 01/02/24 03:57 72 01/02/24 03:43 76 01/02/24 01:27 98 F 60 20 109/73 97 01/01/24 21:53 74 01/01/24 21:41 72 01/01/24 20:00 97.9 F 65 20 143/75 93 L 01/01/24 15:44 70 01/01/24 15:32 68 01/01/24 14:30 98.1 F 66 16 113/70 93 L Intake and Output 01/01/24 01/02/24 01/02/24 22:59 06:59 14:59 Intake Total 118 Balance 118 Intake: Oral 118 Other: Voiding Method Toilet Weight 67.585 kg Results - Lab Results Most recent lab results Calcium 8.7 mg/dL (8.4-10.2) 01/02/24 05:20 Magnesium 1.8 mg/dL (1.6-2.3) 12/31/23 16:19 01/02/24 05:20 01/02/24 05:20 Assessment and Plan Plan: Assessment: 1. Chronic kidney disease stage IIIb with baseline creatinine in the range of 1.1-1.5 secondary to nephrosclerosis and cardiorenal syndrome. GFR at baseline. 2. Hypervolemic hyponatremia. 3. Acute on chronic diastolic CHF with moderate mitral regurgitation and severe pulmonary hypertension. 4. Coronary disease with cardiac stenting. 5. Chronic kidney disease mineral bone disease maintained on calcitriol. 6. Metabolic acidosis secondary to chronic kidney disease maintained on oral bicarb. 7. Fluid overload. Plan: Maintain oral Lasix. Maintain Farxiga. Now also on fluid restriction. Check bladder scan to rule out urinary retention. Samsca 7.5 mg once today. Continue to monitor renal function and urine output. Thank you for the consultation. I will continue to follow the patient with you during her hospital stay.
[2024-01-02] MEDS: TOLVAPTAN 15 MG TABLET PO ONE ×2 (12:13→20:13)
--- NOTE | 2024-01-02 12:37 | P.PN ---
Subjective 78-year-old female is admitted for extensive lower extremity bilateral pitting pedal edema this is secondary to cor pulmonale right-sided heart failure secondary to severe pulmonary hypertension. Patient still has quite a bit of edema although patient serum sodium dropped with IV Lasix because of which Lasix was switched to oral. Chest x-ray only showed mild vascular congestion patient has some diastolic function but patient mainly has right-sided heart failure and cor pulmonale. Patient is on 2 L of oxygen which she wears at home. Patient denies any shortness of breath PHYSICAL EXAMINATION: GENERAL: The patient is alert and oriented x3, not in any acute distress. Well developed, well nourished. HEENT: Pupils are round and equally reacting to light. EOMI. No scleral icterus. No conjunctival pallor. Normocephalic, atraumatic. No pharyngeal erythema. No thyromegaly. CARDIOVASCULAR: S1 and S2 present. No murmurs, rubs, or gallops. PULMONARY: Chest is clear to auscultation, no wheezing or crackles. ABDOMEN: Soft, nontender, nondistended, normoactive bowel sounds. No palpable organomegaly. MUSCULOSKELETAL: No joint swelling or deformity. EXTREMITIES: No cyanosis, clubbing, extensive bilateral pitting pedal edema extending up to mid thighs NEUROLOGICAL: Gross neurological examination did not reveal any focal deficits. SKIN: No rashes. Assessment and plan Volume overload: Secondary to right-sided heart failure extensive pedal edema patient on oral Lasix which will continued which may be appropriate at this time because of her worsening serum sodium from aggressive diuresis. Nephrology and cardiology are following the patient -Chronic diastolic function with acute exacerbation -Cor pulmonale severe pulmonary hypertension -Hypervolemic hyponatremia -Coronary disease with stents in the past -Chronic kidney disease stage IIIa and mineral bone disease on calcitriol metabolic acidosis secondary to chronic kidney disease and is on oral bicarbonate COPD chronic hypoxic and hypercapnic respiratory failure without any acute exacerbation-atrial fibrillation presently rate controlled the patient has BiV pacemaker and is on Eliquis which will be resumed and continued -Dyslipidemia -Hypothyroidism DVT prophylaxis: On Eliquis at this time Objective - Vital Signs Vital signs: Vital Signs Temp 97.2 F L 01/02/24 08:00 Pulse 76 01/02/24 11:10 Resp 18 01/02/24 08:00 BP 151/79 01/02/24 08:00 Pulse Ox 95 01/02/24 08:00 FiO2 Intake & Output 01/01/24 01/02/24 01/02/24 18:59 06:59 18:59 Intake Total 118 Balance 118 Weight 67.585 kg Intake: Oral 118 Other: Voiding Method Toilet - Labs CBC & Chem 7: 01/02/24 05:20 01/02/24 05:20 Labs: Abnormal Lab Results - Last 24 Hours (Table) 01/02/24 01/02/24 Range/Units 05:20 05:20 Hgb 10.1 L (11.4-16.0) gm/dL Hct 33.9 L (34.0-46.0) % MCV 73.5 L (80.0-100.0) fL MCH 21.9 L (25.0-35.0) pg MCHC 29.8 L (31.0-37.0) g/dL RDW 19.3 H (11.5-15.5) % Sodium 122 L (137-145) mmol/L Chloride 94 L (98-107) mmol/L Carbon Dioxide 20 L (22-30) mmol/L BUN 39 H (7-17) mg/dL Creatinine 1.17 H (0.52-1.04) mg/dL Glucose 118 H (74-99) mg/dL
--- NOTE | 2024-01-02 13:29 | P.PN ---
Subjective Progress Note Date: 01/02/24 This is a pleasant 78-year-old female patient with a known history of congestive heart failure, chronic obstructive pulmonary disease, gastroesophageal reflux disease, hypertension, hyperlipidemia, gout, hypothyroidism, atrial fibrillation anticoagulated with Eliquis, coronary artery disease with previous stent placement, severe pulmonary hypertension. She is a former heavy smoker. She is maintained on oxygen at home at 2 L/min per nasal cannula. She presented here to the emergency room yesterday with increasing shortness of breath, cough and congestion. Chest x-ray revealed cardiomegaly with mild pulmonary vascular congestion. White count 7.0. Hemoglobin 10.5. Platelets 210. Sodium 125. Potassium 3.9. Bicarb 12. BUN 32. Creatinine 1.2. Glucose 149. proBNP 11,200. Viral screen negative. She has been initiated on DuoNeb inhalations, Symbicort, Solu-Medrol. Receiving Lasix 40 mg IV every 8 hours. She is seen today in consultation in the emergency department. Currently sitting up on a stretcher. Awake and alert in no acute distress. Breathing a bit easier today compared to yesterday. Not back to her baseline. Maintaining good O2 saturations in the mid 90s on 3 L/min per nasal cannula. She is afebrile. Hemodynamically stable. The patient is seen today January 02, 2024 in follow-up on the regular medical floor. She is currently sitting up in bed. Awake and alert in no acute distress. Maintaining good O2 saturations in the 90s on 3 L/min per nasal cannula. She is feeling better today compared to yesterday. Her procalcitonin was negative at 0.20. She is currently on Lasix 40 mg IV every 8 hours. No accurate intake and output recorded. White count 10.5. Hemoglobin 10.1. Platelets 199. Sodium 122. Potassium 4.0. Bicarb 20. BUN 39. Creatinine 1. 17. Glucose 118. She remains afebrile. Hemodynamically stable. Is on DuoNeb and elations, Symbicort. Anticoagulated with Eliquis. Objective - Vital Signs Vital signs: Vital Signs Temp 97.2 F L 01/02/24 08:00 Pulse 76 01/02/24 11:10 Resp 18 01/02/24 08:00 BP 151/79 01/02/24 08:00 Pulse Ox 95 01/02/24 08:00 FiO2 Intake & Output 01/01/24 01/02/24 01/02/24 18:59 06:59 18:59 Intake Total 118 Balance 118 Weight 67.585 kg Intake: Oral 118 Other: Voiding Method Toilet - Exam GENERAL EXAM: Alert, active, 78-year-old female, on 3 L nasal cannula, comfortable in no apparent distress. HEAD: Normocephalic. EYES: Normal reaction of pupils, equal size. NOSE: Clear with pink turbinates. THROAT: No erythema or exudates. NECK: No masses, no JVD. CHEST: No chest wall deformity. LUNGS: Equal air entry with faint crackles in the posterior bases. CVS: S1 and S2 normal with no audible murmur, regular rhythm. ABDOMEN: No hepatosplenomegaly, normal bowel sounds, no guarding or rigidity. SPINE: No scoliosis or deformity SKIN: No rashes CENTRAL NERVOUS SYSTEM: No focal deficits, tone is normal in all 4 extremities. EXTREMITIES: There is no peripheral edema. No clubbing, no cyanosis. Peripheral pulses are intact. - Labs CBC & Chem 7: 01/02/24 05:20 01/02/24 05:20 Labs: Abnormal Lab Results - Last 24 Hours (Table) 01/02/24 01/02/24 Range/Units 05:20 05:20 Hgb 10.1 L (11.4-16.0) gm/dL Hct 33.9 L (34.0-46.0) % MCV 73.5 L (80.0-100.0) fL MCH 21.9 L (25.0-35.0) pg MCHC 29.8 L (31.0-37.0) g/dL RDW 19.3 H (11.5-15.5) % Sodium 122 L (137-145) mmol/L Chloride 94 L (98-107) mmol/L Carbon Dioxide 20 L (22-30) mmol/L BUN 39 H (7-17) mg/dL Creatinine 1.17 H (0.52-1.04) mg/dL Glucose 118 H (74-99) mg/dL Microbiology - Last 24 Hours (Table) 12/31/23 22:37 Blood Culture - Preliminary Blood Assessment and Plan Assessment: Acute on chronic hypoxemic respiratory failure secondary to an acute exacerbat ion of diastolic congestive heart failure Acute on chronic hypoxemic respiratory failure secondary to an acute exacerbation of chronic obstructive pulmonary disease Chronic hypoxemic respiratory failure secondary to COPD, normally on oxygen at 2 L. Maintained on Trelegy and DuoNebs Former heavy smoker Severe pulmonary hypertension Atrial fibrillation, anticoagulated with Eliquis, status post permanent pacemaker implantation Coronary artery disease with previous stent placement Hypertension Hyperlipidemia History of gout Hypothyroidism Hearing disorder Macular degeneration Plan: The patient was seen and evaluated Labs and medications reviewed Continue bronchodilators, diuretics Follow-up chest x-ray in a.m. We will continue to follow I have personally seen and examined the patient, performed the documentation and the assessment and plan as written. Number of minutes spent on the visit: 10. Dictation was produced using [employer] dictation software. Please excuse any gram matical, word or spelling errors.
[2024-01-02 15:23] LABS: T4, Free (Free Thyroxine) 1.37 ng/dL (0.78-2.19)
[2024-01-03] MEDS: LEVOTHYROXINE 50 MCG TAB PO SCH (06:06)
--- NOTE | 2024-01-03 08:17 | XR ---
EXAMINATION TYPE: XR chest 1V portable DATE OF EXAM: 01/03/2024 HISTORY: Shortness of breath. COMPARISON: 12/31/2023 TECHNIQUE: Single view of the chest is submitted. FINDINGS: Demonstrated are scattered senescent parenchymal change. There is no evidence for focal infiltrate. Cardiomegaly with pulmonary venous congestion mild interstitial edema. Hilar and mediastinal structures are within normal limits. Degenerative changes are seen of the dorsal spine. IMPRESSION: 1. Cardiomegaly with pulmonary venous congestion mild interstitial edema. [facility], , 01/03/2024 8:15 AM
[2024-01-03 08:49] LABS: BUN/Creat Ratio 27.12 Ratio (12.00-20.00); Blood Urea Nitrogen 46.1 mg/dL (9.0-27.0); Calcium 9.5 mg/dL (8.7-10.3); Carbon Dioxide 17.6 mmol/L (21.6-31.8); Chloride 88 mmol/L (96-109); Glucose 106 mg/dL (70-110); Magnesium 2.1 mg/dL (1.5-2.4); Potassium 4.7 mmol/L (3.5-5.5); Sodium 122 mmol/L (135-145)
[2024-01-03] MEDS ORDERED: FUROSEMIDE 40 MG TAB PO SCH (09:00)
[2024-01-03] MEDS: FUROSEMIDE 40 MG TAB PO SCH (09:56)
[2024-01-03] MEDS: methylPREDNISolone SOD SUCCI 125 MG/2 ML VIAL IV SCH ×2 (09:56→23:33)
--- NOTE | 2024-01-03 10:57 | P.PN ---
Subjective Patient seen in follow-up for acute kidney injury and hyponatremia. Sodium level stable at 122. Creatinine up to 1.7. On oral Lasix. Admits to good urine output. Vital signs are stable. General: No acute distress. HEENT: Head exam is unremarkable. On nasal cannula. LUNGS: No audible rhonchi or wheezes. HEART: Rate and Rhythm are regular. ABDOMEN: Nontender, obese. EXTREMITITES: 2+ edema. Objective - Vital Signs Vital signs: Vital Signs Temp 97.5 F L 01/03/24 08:00 Pulse 72 01/03/24 08:46 Resp 16 01/03/24 08:00 BP 125/73 01/03/24 08:00 Pulse Ox 93 L 01/03/24 08:33 FiO2 Intake & Output 01/02/24 01/03/24 01/03/24 18:59 06:59 18:59 Intake Total 826 540 280 Output Total 500 220 Balance 826 40 60 Weight 37 kg Intake: Oral 826 540 280 Output: Urine 500 220 Other: Voiding Method Toilet # Voids 2 1 - Labs CBC & Chem 7: 01/02/24 05:20 01/03/24 04:52 Labs: Abnormal Lab Results - Last 24 Hours (Table) 01/02/24 01/02/24 01/03/24 Range/Units 05:20 17:55 04:52 Sodium 122 L 122 L (137-145) mmol/L Chloride 88 L (96-109) mmol/L Carbon Dioxide 17.6 L (21.6-31.8) mmol/L Anion Gap 16.40 H (4.00-12.00) mmol/L BUN 46.1 H (9.0-27.0) mg/dL Creatinine 1.7 H (0.6-1.5) mg/dL Est GFR (CKD-EPI) 30 L (>=60) BUN/Creatinine Ratio 27.12 H (12.00-20.00) Ratio TSH 0.256 L (0.465-4.680) mIU/L Free T3 pg/mL 2.00 L (2.30-4.20) pg/mL Microbiology - Last 24 Hours (Table) 12/31/23 22:37 Blood Culture - Preliminary Blood Assessment and Plan Plan: Assessment: 1. Chronic kidney disease stage IIIb with baseline creatinine in the range of 1.1-1.5 secondary to nephrosclerosis and cardiorenal syndrome. Renal function worse from diuresis. 2. Hypervolemic hyponatremia. TSH low at 0.56, free T4 normal. 3. Acute on chronic diastolic CHF with moderate mitral regurgitation and severe pulmonary hypertension. 4. Coronary disease with cardiac stenting. 5. Chronic kidney disease mineral bone disease maintained on calcitriol. 6. Metabolic acidosis secondary to chronic kidney disease maintained on oral bicarb. 7. Fluid overload. Chest x-ray from today suggestive of vascular congestion. Plan: Maintain oral Lasix. It was decreased to once daily yesterday but is now back on 40 mg orally twice daily which she takes at home. Maintain Farxiga. Maintain low-salt diet and fluid restriction. No evidence of urinary retention. Repeat Samsca 15 mg once today. Repeat sodium level this evening. Increase bicarb dose to 650 mg twice daily. Urine studies pending. Check renal ultrasound. No evidence of urinary retention.
--- NOTE | 2024-01-03 11:54 | P.PN ---
Subjective HISTORY OF PRESENT ILLNESS: HPI: This is a 78-year-old lady with a past medical history that includes atrial fibrillation s/p AV node ablation and permanent pacemaker performed years ago. She actually has a biventricular pacemaker. She has history of CAD with prior PCI of right coronary artery in the past. She has oxygen requiring COPD. She came into the hospital complaining of shortness of breath that was worsening had a recent pneumonia for which she took antibiotics. She has been complaining of some productive cough shortness of breath that was progressively worsening but no chest pain. Clinically patient is in a combination of exacerbation of COPD and also probably some diastolic heart failure. Her JVD is elevated she has wh at seems to be pulmonary hypertension as well. Since arrival after Lasix her breathing has improved somewhat. She has no pain in the chest at this time.. 01/02/2024 Patient examined this morning at the bedside. She currently denies any chest pain or pressure. She reports improvement in her shortness of breath. She remains on IV Lasix. Sodium this morning decreased to 122. 01/03/2024 Patient examined this morning at the bedside. Patient currently denies chest pain or pressure. She denies shortness of breath. She does report having a lot of coughing yesterday. Patient sodium remains low at 122 this morning. She has been followed by nephrology. PHYSICAL EXAM: VITAL SIGNS: Reviewed. GENERAL: Well-developed in no acute distress. NECK: Supple. No JVD or thyromegaly LUNGS: Respirations even and unlabored. Lungs essentially clear to auscultation bilaterally. HEART: Regular rate and rhythm. S1 and S2 heard. Systolic murmur noted. EXTREMITIES: Normal range of motion. No clubbing or cyanosis. Peripheral pulses intact. Trace bilateral lower extremity edema ASSESSMENT: Shortness of breath Acute on chronic heart failure with preserved EF, 60-65% Acute kidney injury Hyponatremia Acute COPD exacerbation Moderate to severe pulmonary hypertension Persistent atrial fibrillation status post AV donte ablation and dual-chamber pacemaker implantation Coronary arteries with previous stenting of the RCA Hypertension Hyperlipidemia PLAN: Patient started on IV Lasix per nephrology today Monitor kidney function. Continue to monitor sodium. Continue additional cardiac medications Further recommendations pending patient course Nurse practitioner note has been reviewed by physician. Signing provider agrees with the documented findings, assessment, and plan of care documented by DIRECTOR LOSS PREVENTION as a scribe. Objective - Vital Signs Vital signs: Vital Signs Temp 97.5 F L 01/03/24 08:00 Pulse 70 01/03/24 11:50 Resp 16 01/03/24 08:00 BP 125/73 01/03/24 08:00 Pulse Ox 93 L 01/03/24 08:33 FiO2 Intake & Output 01/02/24 01/03/24 01/03/24 18:59 06:59 18:59 Intake Total 826 540 280 Output Total 500 220 Balance 826 40 60 Weight 37 kg Intake: Oral 826 540 280 Output: Urine 500 220 Other: Voiding Method Toilet # Voids 2 1 - Labs CBC & Chem 7: 01/02/24 05:20 01/03/24 04:52 Labs: Abnormal Lab Results - Last 24 Hours (Table) 01/02/24 01/02/24 01/03/24 Range/Units 05:20 17:55 04:52 Sodium 122 L 122 L (137-145) mmol/L Chloride 88 L (96-109) mmol/L Carbon Dioxide 17.6 L (21.6-31.8) mmol/L Anion Gap 16.40 H (4.00-12.00) mmol/L BUN 46.1 H (9.0-27.0) mg/dL Creatinine 1.7 H (0.6-1.5) mg/dL Est GFR (CKD-EPI) 30 L (>=60) BUN/Creatinine Ratio 27.12 H (12.00-20.00) Ratio TSH 0.256 L (0.465-4.680) mIU/L Free T3 pg/mL 2.00 L (2.30-4.20) pg/mL Microbiology - Last 24 Hours (Table) 12/31/23 22:37 Blood Culture - Preliminary Blood
--- NOTE | 2024-01-03 12:06 | P.PN ---
Subjective 78-year-old female is admitted for extensive lower extremity bilateral pitting pedal edema this is secondary to cor pulmonale right-sided heart failure secondary to severe pulmonary hypertension. Patient still has quite a bit of edema although patient serum sodium dropped with IV Lasix because of which Lasix was switched to oral. Chest x-ray only showed mild vascular congestion patient has some diastolic function but patient mainly has right-sided heart failure and cor pulmonale. Patient is on 2 L of oxygen which she wears at home. 01/03/2024 Patient went into respiratory distress patient appears to have some volume overload may have some wheezing patient was evaluated by pulmonary and increase the IV steroids. Patient still has bilateral pedal edema chest x-ray showing worsening pulmonary edema. Patient will be started on IV Lasix discussed with nephrology patient had worsening creatinine received Samsca despite of which her serum sodium did not improve. Review of systems: Negative except those mentioned above PHYSICAL EXAMINATION: GENERAL: The patient is alert and oriented x3, not in any acute distress. Well developed, well nourished. HEENT: Pupils are round and equally reacting to light. EOMI. No scleral icterus. No conjunctival pallor. Normocephalic, atraumatic. No pharyngeal erythema. No thyromegaly. CARDIOVASCULAR: S1 and S2 present. No murmurs, rubs, or gallops. PULMONARY: Chest is clear to auscultation, no wheezing or crackles. ABDOMEN: Soft, nontender, nondistended, normoactive bowel sounds. No palpable organomegaly. MUSCULOSKELETAL: No joint swelling or deformity. EXTREMITIES: No cyanosis, clubbing, extensive bilateral pitting pedal edema extending up to mid thighs NEUROLOGICAL: Gross neurological examination did not reveal any focal deficits. SKIN: No rashes. Assessment and plan Volume overload: Secondary to right-sided heart failure extensive pedal edema, patient is switched IV Lasix despite of worsening creatinine as patient has cardiorenal syndrome -Chronic diastolic function with acute exacerbation -Cor pulmonale severe pulmonary hypertension -Hypervolemic hyponatremia: Patient is being started on IV Lasix -Coronary disease with stents in the past -Chronic kidney disease stage IIIa and mineral bone disease on calcitriol metabolic acidosis secondary to chronic kidney disease and is on oral bicarbonate COPD chronic hypoxic and hypercapnic respiratory failure with mild acute exac erbation -Dyslipidemia -Hypothyroidism DVT prophylaxis: On Eliquis at this time Objective - Vital Signs Vital signs: Vital Signs Temp 97.5 F L 01/03/24 08:00 Pulse 70 01/03/24 11:50 Resp 16 01/03/24 08:00 BP 125/73 01/03/24 08:00 Pulse Ox 93 L 01/03/24 08:33 FiO2 Intake & Output 01/02/24 01/03/24 01/03/24 18:59 06:59 18:59 Intake Total 826 540 280 Output Total 500 220 Balance 826 40 60 Weight 37 kg Intake: Oral 826 540 280 Output: Urine 500 220 Other: Voiding Method Toilet # Voids 2 1 - Labs CBC & Chem 7: 01/02/24 05:20 01/03/24 04:52 Labs: Abnormal Lab Results - Last 24 Hours (Table) 01/02/24 01/02/24 01/03/24 Range/Units 05:20 17:55 04:52 Sodium 122 L 122 L (137-145) mmol/L Chloride 88 L (96-109) mmol/L Carbon Dioxide 17.6 L (21.6-31.8) mmol/L Anion Gap 16.40 H (4.00-12.00) mmol/L BUN 46.1 H (9.0-27.0) mg/dL Creatinine 1.7 H (0.6-1.5) mg/dL Est GFR (CKD-EPI) 30 L (>=60) BUN/Creatinine Ratio 27.12 H (12.00-20.00) Ratio TSH 0.256 L (0.465-4.680) mIU/L Free T3 pg/mL 2.00 L (2.30-4.20) pg/mL Microbiology - Last 24 Hours (Table) 12/31/23 22:37 Blood Culture - Preliminary Blood
--- NOTE | 2024-01-03 12:46 | P.PN ---
Subjective Progress Note Date: 01/03/24 This is a pleasant 78-year-old female patient with a known history of congestive heart failure, chronic obstructive pulmonary disease, gastroesophageal reflux disease, hypertension, hyperlipidemia, gout, hypothyroidism, atrial fibrillation anticoagulated with Eliquis, coronary artery disease with previous stent placement, severe pulmonary hypertension. She is a former heavy smoker. She is maintained on oxygen at home at 2 L/min per nasal cannula. She presented here to the emergency room yesterday with increasing shortness of breath, cough and congestion. Chest x-ray revealed cardiomegaly with mild pulmonary vascular congestion. White count 7.0. Hemoglobin 10.5. Platelets 210. Sodium 125. Potassium 3.9. Bicarb 12. BUN 32. Creatinine 1.2. Glucose 149. proBNP 11,200. Viral screen negative. She has been initiated on DuoNeb inhalations, Symbicort, Solu-Medrol. Receiving Lasix 40 mg IV every 8 hours. She is seen today in consultation in the emergency department. Currently sitting up on a stretcher. Awake and alert in no acute distress. Breathing a bit easier today compared to yesterday. Not back to her baseline. Maintaining good O2 saturations in the mid 90s on 3 L/min per nasal cannula. She is afebrile. Hemodynamically stable. The patient is seen today January 02, 2024 in follow-up on the regular medical floor. She is currently sitting up in bed. Awake and alert in no acute distress. Maintaining good O2 saturations in the 90s on 3 L/min per nasal cannula. She is feeling better today compared to yesterday. Her procalcitonin was negative at 0.20. She is currently on Lasix 40 mg IV every 8 hours. No accurate intake and output recorded. White count 10.5. Hemoglobin 10.1. Platelets 199. Sodium 122. Potassium 4.0. Bicarb 20. BUN 39. Creatinine 1. 17. Glucose 118. She remains afebrile. Hemodynamically stable. Is on DuoNeb and elations, Symbicort. Anticoagulated with Eliquis. The patient is seen today January 03, 2024 in follow-up on the regular medical floor. She is awake and alert in no acute distress. She is having some wheezing and increased shortness of breath compared to yesterday. She is maintaining good O2 saturation in the 90s on 4 L/min per nasal cannula. She is afebrile. Hemodynamically stable. Blood culture revealed no growth. Sodium 122. Potassium 4.7. Bicarb 18. BUN 46. Creatinine 1.7. Glucose 106. She re karey on Symbicort, DuoNeb inhalations, IV diuretics. Steroids will be resumed. Chest x-ray continues to show cardiomegaly with pulmonary vascular congestion and mild interstitial edema. Objective - Vital Signs Vital signs: Vital Signs Temp 97.5 F L 01/03/24 08:00 Pulse 70 01/03/24 11:50 Resp 16 01/03/24 08:00 BP 125/73 01/03/24 08:00 Pulse Ox 93 L 01/03/24 08:33 FiO2 Intake & Output 01/02/24 01/03/24 01/03/24 18:59 06:59 18:59 Intake Total 826 540 280 Output Total 500 220 Balance 826 40 60 Weight 37 kg Intake: Oral 826 540 280 Output: Urine 500 220 Other: Voiding Method Toilet # Voids 2 1 - Exam GENERAL EXAM: Alert, 78-year-old female, on 4 L nasal cannula, in no apparent distress. HEAD: Normocephalic. EYES: Normal reaction of pupils, equal size. NOSE: Clear with pink turbinates. THROAT: No erythema or exudates. NECK: No masses, no JVD. CHEST: No chest wall deformity. LUNGS: Equal air entry with faint crackles in the posterior bases. CVS: S1 and S2 normal with no audible murmur, regular rhythm. ABDOMEN: No hepatosplenomegaly, normal bowel sounds, no guarding or rigidity. SPINE: No scoliosis or deformity SKIN: No rashes CENTRAL NERVOUS SYSTEM: No focal deficits, tone is normal in all 4 extremities. EXTREMITIES: There is no peripheral edema. No clubbing, no cyanosis. Peripheral pulses are intact. - Labs CBC & Chem 7: 01/02/24 05:20 01/03/24 04:52 Labs: Abnormal Lab Results - Last 24 Hours (Table) 01/02/24 01/02/24 01/03/24 Range/Units 05:20 17:55 04:52 Sodium 122 L 122 L (137-145) mmol/L Chloride 88 L (96-109) mmol/L Carbon Dioxide 17.6 L (21.6-31.8) mmol/L Anion Gap 16.40 H (4.00-12.00) mmol/L BUN 46.1 H (9.0-27.0) mg/dL Creatinine 1.7 H (0.6-1.5) mg/dL Est GFR (CKD-EPI) 30 L (>=60) BUN/Creatinine Ratio 27.12 H (12.00-20.00) Ratio TSH 0.256 L (0.465-4.680) mIU/L Free T3 pg/mL 2.00 L (2.30-4.20) pg/mL Microbiology - Last 24 Hours (Table) 12/31/23 22:37 Blood Culture - Preliminary Blood Assessment and Plan Assessment: Acute on chronic hypoxemic respiratory failure secondary to an acute exacerbation of diastolic congestive heart failure Acute on chronic hypoxemic respiratory failure secondary to an acute exacerbation of chronic obstructive pulmonary disease Hyponatremia Chronic hypoxemic respiratory failure secondary to COPD, normally on oxygen at 2 L. Maintained on Trelegy and DuoNebs Former heavy smoker Severe pulmonary hypertension Atrial fibrillation, anticoagulated with Eliquis, status post permanent pacemaker implantation Coronary artery disease with previous stent placement Hypertension Hyperlipidemia History of gout Hypothyroidism Hearing disorder Macular degeneration Plan: The patient was seen and evaluated Chest x-ray, labs and medications reviewed Fluid restrictions Continued on IV diuretics Resume IV Solu-Medrol Continue Symbicort, DuoNeb inhalations Anticoagulated with Eliquis We will continue to follow I have personally seen and examined the patient, performed the documentation and the assessment and plan as written. Number of minutes spent on the visit: 10. Dictation was produced using [employer] dictation software. Please excuse any grammatical, word or spelling errors.
[2024-01-03] MEDS: TOLVAPTAN 15 MG TABLET PO ONE (12:49)
--- NOTE | 2024-01-03 13:23 | US ---
EXAMINATION TYPE: US kidneys/renal and bladder DATE OF EXAM: 01/03/2024 COMPARISON: NONE CLINICAL INDICATION: Female, 78 years old with history of yuni; YUNI TECHNIQUE: Grayscale and color Doppler imaging of the bilateral kidneys and urinary bladder: FINDINGS: EXAM MEASUREMENTS: Right Kidney: 10.2 x 3.7 x 4.0 cm Left Kidney: 9.0 x 4.4 x 3.8 cm Limited evaluation due to overlying bowel gas Right Kidney: anechoic areas noted, largest = 1.3 x 1.2 x 1.5cm Left Kidney: anechoic area lower pole = 1.7 x 1.7 x 1.6cm Bladder: wnl Bilateral Jets seen: no There is no evidence for hydronephrosis at this point in time. No nephrolithiasis is seen. No solid masses are identified. The urinary bladder is anechoic. IMPRESSION: Renal cystic changes noted. [facility], , 01/03/2024 1:20 PM
[2024-01-03] MEDS ORDERED: ARTIFICIAL TEARS-HYPROMELLOSE DROPS 15 ML BTL BOTH EYES PRN (16:35)
[2024-01-03] MEDS: SODIUM BICARBONATE TAB 650 MG TAB PO SCH (20:38)
[2024-01-03] MEDS: FUROSEMIDE 10 MG/ML 4 ML VIAL IV SCH (20:38)
--- NOTE | 2024-01-04 10:44 | P.PN ---
Subjective HISTORY OF PRESENT ILLNESS: HPI: This is a 78-year-old lady with a past medical history that includes atrial fibrillation s/p AV node ablation and permanent pacemaker performed years ago. She actually has a biventricular pacemaker. She has history of CAD with prior PCI of right coronary artery in the past. She has oxygen requiring COPD. She came into the hospital complaining of shortness of breath that was worsening had a recent pneumonia for which she took antibiotics. She has been complaining of some productive cough shortness of breath that was progressively worsening but no chest pain. Clinically patient is in a combination of exacerbation of COPD and also probably some diastolic heart failure. Her JVD is elevated she has wh at seems to be pulmonary hypertension as well. Since arrival after Lasix her breathing has improved somewhat. She has no pain in the chest at this time.. 01/02/2024 Patient examined this morning at the bedside. She currently denies any chest pain or pressure. She reports improvement in her shortness of breath. She remains on IV Lasix. Sodium this morning decreased to 122. 01/03/2024 Patient examined this morning at the bedside. Patient currently denies chest pain or pressure. She denies shortness of breath. She does report having a lot of coughing yesterday. Patient sodium remains low at 122 this morning. She has been followed by nephrology. 01/04/2024 Patient examined this morning the bedside. Patient currently denies chest pain or pressure. She denies shortness of breath at the time of examination. She remains on IV diuretics per nephrology. Labs from this morning are currently pending. PHYSICAL EXAM: VITAL SIGNS: Reviewed. GENERAL: Well-developed in no acute distress. NECK: Supple. No JVD or thyromegaly LUNGS: Respirations even and unlabored. Lungs essentially clear to auscultation bilaterally. HEART: Regular rate and rhythm. S1 and S2 heard. Systolic murmur noted. EXTREMITIES: Normal range of motion. No clubbing or cyanosis. Peripheral pulses intact. 1-2+ bilateral lower extremity edema ASSESSMENT: Shortness of breath Acute on chronic heart failure with preserved EF, 60-65% Acute kidney injury Hyponatremia Acute COPD exacerbation Moderate to severe pulmonary hypertension Persistent atrial fibrillation status post AV donte ablation and dual-chamber pacemaker implantation Coronary arteries with previous stenting of the RCA Hypertension Hyperlipidemia PLAN: Continue IV diuretics per nephrology. Monitor kidney function. Continue to monitor sodium. Awaiting labs from this morning. Continue additional cardiac medications Further recommendations pending patient course Nurse practitioner note has been reviewed by physician. Signing provider agrees with the documented findings, assessment, and plan of care documented by WATCH SUPERVISOR as a scribe. Objective - Vital Signs Vital signs: Vital Signs Temp 97.4 F L 01/04/24 07:34 Pulse 80 01/04/24 08:16 Resp 16 01/04/24 07:34 BP 119/54 01/04/24 07:34 Pulse Ox 97 01/04/24 08:02 FiO2 Intake & Output 01/03/24 01/04/24 01/04/24 18:59 06:59 18:59 Intake Total 1260 240 236 Output Total 1520 1500 Balance -260 -1260 236 Weight 36.5 kg Intake: Oral 1260 240 236 Output: Urine 1520 1500 Other: Voiding Method Toilet # Voids 1 - Labs CBC & Chem 7: 01/02/24 05:20 01/03/24 16:02 Labs: Abnormal Lab Results - Last 24 Hours (Table) 01/03/24 01/03/24 Range/Units 01:00 16:02 Sodium 126 L (137-145) mmol/L Ur Random Sodium <20 L (40-220) mmol/L Microbiology - Last 24 Hours (Table) 12/31/23 22:37 Blood Culture - Preliminary Blood
[2024-01-04 10:50] LABS: Magnesium 2.3 mg/dL (1.5-2.4)
[2024-01-04 11:25] LABS: BUN/Creat Ratio 33.13 Ratio (12.00-20.00); Blood Urea Nitrogen 49.7 mg/dL (9.0-27.0); Calcium 9.5 mg/dL (8.7-10.3); Carbon Dioxide 21.3 mmol/L (21.6-31.8); Chloride 98 mmol/L (96-109); Glucose 198 mg/dL (70-110); Potassium 4.7 mmol/L (3.5-5.5); Sodium 132 mmol/L (135-145)
--- NOTE | 2024-01-04 11:47 | P.PN ---
Subjective Progress Note Date: 01/04/24 This is a pleasant 78-year-old female patient with a known history of congestive heart failure, chronic obstructive pulmonary disease, gastroesophageal reflux disease, hypertension, hyperlipidemia, gout, hypothyroidism, atrial fibrillation anticoagulated with Eliquis, coronary artery disease with previous stent placement, severe pulmonary hypertension. She is a former heavy smoker. She is maintained on oxygen at home at 2 L/min per nasal cannula. She presented here to the emergency room yesterday with increasing shortness of breath, cough and congestion. Chest x-ray revealed cardiomegaly with mild pulmonary vascular congestion. White count 7.0. Hemoglobin 10.5. Platelets 210. Sodium 125. Potassium 3.9. Bicarb 12. BUN 32. Creatinine 1.2. Glucose 149. proBNP 11,200. Viral screen negative. She has been initiated on DuoNeb inhalations, Symbicort, Solu-Medrol. Receiving Lasix 40 mg IV every 8 hours. She is seen today in consultation in the emergency department. Currently sitting up on a stretcher. Awake and alert in no acute distress. Breathing a bit easier today compared to yesterday. Not back to her baseline. Maintaining good O2 saturations in the mid 90s on 3 L/min per nasal cannula. She is afebrile. Hemodynamically stable. The patient is seen today January 02, 2024 in follow-up on the regular medical floor. She is currently sitting up in bed. Awake and alert in no acute distress. Maintaining good O2 saturations in the 90s on 3 L/min per nasal cannula. She is feeling better today compared to yesterday. Her procalcitonin was negative at 0.20. She is currently on Lasix 40 mg IV every 8 hours. No accurate intake and output recorded. White count 10.5. Hemoglobin 10.1. Platelets 199. Sodium 122. Potassium 4.0. Bicarb 20. BUN 39. Creatinine 1. 17. Glucose 118. She remains afebrile. Hemodynamically stable. Is on DuoNeb and elations, Symbicort. Anticoagulated with Eliquis. The patient is seen today January 03, 2024 in follow-up on the regular medical floor. She is awake and alert in no acute distress. She is having some wheezing and increased shortness of breath compared to yesterday. She is maintaining good O2 saturation in the 90s on 4 L/min per nasal cannula. She is afebrile. Hemodynamically stable. Blood culture revealed no growth. Sodium 122. Potassium 4.7. Bicarb 18. BUN 46. Creatinine 1.7. Glucose 106. She re karey on Symbicort, DuoNeb inhalations, IV diuretics. Steroids will be resumed. Chest x-ray continues to show cardiomegaly with pulmonary vascular congestion and mild interstitial edema. The patient is seen today January 04, 2024 in follow-up on the regular medical floor. She is awake and alert in no acute distress. Sitting up at the bedside. Maintaining O2 saturation in the 90s on 4 L/min per nasal cannula. She is breathing easier today compared to yesterday. She remains on DuoNeb and e lations, Symbicort, Solu-Medrol. Anticoagulated with Eliquis. Continued on IV diuretics. Currently in a -1.5 L balance. Sodium 132. Potassium 4.7. Bicarb 21. BUN 50. Creatinine 1.5. Glucose 198. She remains on a 1200 mL fluid restriction. Anticoagulated with Eliquis. Objective - Vital Signs Vital signs: Vital Signs Temp 97.4 F L 01/04/24 07:34 Pulse 80 01/04/24 08:16 Resp 16 01/04/24 07:34 BP 119/54 01/04/24 07:34 Pulse Ox 97 01/04/24 08:02 FiO2 Intake & Output 01/03/24 01/04/24 01/04/24 18:59 06:59 18:59 Intake Total 1260 240 236 Output Total 1520 1500 700 Balance -260 -1260 -464 Weight 36.5 kg Intake: Oral 1260 240 236 Output: Urine 1520 1500 700 Other: Voiding Method Toilet # Voids 1 - Exam GENERAL EXAM: Alert, pleasant 78-year-old female, sitting up at the bedside, having breakfast, on 4 L nasal cannula, in no apparent distress. HEAD: Normocephalic. EYES: Normal reaction of pupils, equal size. NOSE: Clear with pink turbinates. THROAT: No erythema or exudates. NECK: No masses, no JVD. CHEST: No chest wall deformity. LUNGS: Equal air entry with faint crackles in the posterior bases. CVS: S1 and S2 normal with no audible murmur, regular rhythm. ABDOMEN: No hepatosplenomegaly, normal bowel sounds, no guarding or rigidity. SPINE: No scoliosis or deformity SKIN: No rashes CENTRAL NERVOUS SYSTEM: No focal deficits, tone is normal in all 4 extremities. EXTREMITIES: There is no peripheral edema. No clubbing, no cyanosis. Peripheral pulses are intact. - Labs CBC & Chem 7: 01/02/24 05:20 01/04/24 07:13 Labs: Abnormal Lab Results - Last 24 Hours (Table) 01/03/24 01/03/24 01/03/24 Range/Units 01:00 14:36 16:02 Sodium 126 L (137-145) mmol/L Carbon Dioxide (21.6-31.8) mmol/L Anion Gap (4.00-12.00) mmol/L BUN (9.0-27.0) mg/dL Est GFR (CKD-EPI) (>=60) BUN/Creatinine Ratio (12.00-20.00) Ratio Glucose (70-110) mg/dL Urine Osmolality 143 L (400-1100) mOsm/kg Ur Random Sodium <20 L (40-220) mmol/L 01/04/24 Range/Units 07:13 Sodium 132 L (137-145) mmol/L Carbon Dioxide 21.3 L (21.6-31.8) mmol/L Anion Gap 12.70 H (4.00-12.00) mmol/L BUN 49.7 H (9.0-27.0) mg/dL Est GFR (CKD-EPI) 35 L (>=60) BUN/Creatinine Ratio 33.13 H (12.00-20.00) Ratio Glucose 198 H (70-110) mg/dL Urine Osmolality (400-1100) mOsm/kg Ur Random Sodium (40-220) mmol/L Microbiology - Last 24 Hours (Table) 12/31/23 22:37 Blood Culture - Preliminary Blood Assessment and Plan Assessment: Acute on chronic hypoxemic respiratory failure secondary to an acute exacerbation of diastolic congestive heart failure Acute on chronic hypoxemic respiratory failure secondary to an acute exacerbation of chronic obstructive pulmonary disease Hyponatremia, improving Chronic hypoxemic respiratory failure secondary to COPD, normally on oxygen at 2 L. Maintained on Trelegy and DuoNebs Former heavy smoker Severe pulmonary hypertension Atrial fibrillation, anticoagulated with Eliquis, status post permanent pacemaker implantation Coronary artery disease with previous stent placement Hypertension Hyperlipidemia History of gout Hypothyroidism Hearing disorder Macular degeneration Plan: The patient was seen and evaluated Labs and medications reviewed Continue the current treatment plan Titrate down the FiO2 as tolerated We will continue to follow I have personally seen and examined the patient, performed the documentation and the assessment and plan as written. Number of minutes spent on the visit: 10. Dictation was produced using [employer] dictation software. Please excuse any grammatical, word or spelling errors.
--- NOTE | 2024-01-04 12:02 | P.PN ---
Subjective Patient seen in follow-up for acute kidney injury and hyponatremia. Sodium level improved to 132. Renal function also improved. On IV Lasix. Vital signs are stable. General: No acute distress. HEENT: Head exam is unremarkable. On nasal cannula. LUNGS: No audible rhonchi or wheezes. HEART: Rate and Rhythm are regular. ABDOMEN: Nontender, obese. EXTREMITITES: 2+ edema. Objective - Vital Signs Vital signs: Vital Signs Temp 97.4 F L 01/04/24 07:34 Pulse 76 01/04/24 11:52 Resp 16 01/04/24 07:34 BP 119/54 01/04/24 07:34 Pulse Ox 97 01/04/24 08:02 FiO2 Intake & Output 01/03/24 01/04/24 01/04/24 18:59 06:59 18:59 Intake Total 1260 240 236 Output Total 1520 1500 700 Balance -260 -1260 -464 Weight 36.5 kg Intake: Oral 1260 240 236 Output: Urine 1520 1500 700 Other: Voiding Method Toilet # Voids 1 - Labs CBC & Chem 7: 01/02/24 05:20 01/04/24 07:13 Labs: Abnormal Lab Results - Last 24 Hours (Table) 01/03/24 01/03/24 01/03/24 Range/Units 01:00 14:36 16:02 Sodium 126 L (137-145) mmol/L Carbon Dioxide (21.6-31.8) mmol/L Anion Gap (4.00-12.00) mmol/L BUN (9.0-27.0) mg/dL Est GFR (CKD-EPI) (>=60) BUN/Creatinine Ratio (12.00-20.00) Ratio Glucose (70-110) mg/dL Urine Osmolality 143 L (400-1100) mOsm/kg Ur Random Sodium <20 L (40-220) mmol/L 01/04/24 Range/Units 07:13 Sodium 132 L (137-145) mmol/L Carbon Dioxide 21.3 L (21.6-31.8) mmol/L Anion Gap 12.70 H (4.00-12.00) mmol/L BUN 49.7 H (9.0-27.0) mg/dL Est GFR (CKD-EPI) 35 L (>=60) BUN/Creatinine Ratio 33.13 H (12.00-20.00) Ratio Glucose 198 H (70-110) mg/dL Urine Osmolality (400-1100) mOsm/kg Ur Random Sodium (40-220) mmol/L Microbiology - Last 24 Hours (Table) 12/31/23 22:37 Blood Culture - Preliminary Blood Assessment and Plan Plan: Assessment: 1. Chronic kidney disease stage IIIb with baseline creatinine in the range of 1.1-1.5 secondary to nephrosclerosis and cardiorenal syndrome. Renal function worse from diuresis. Creatinine peaked at 1.7 and is 1.5 today. No hydronephrosis noted on kidney ultrasound. 2. Hypervolemic hyponatremia. TSH low at 0.56, free T4 normal. Improved. Urine sodium less than 20 and urine osmolality 143. 3. Acute on chronic diastolic CHF with moderate mitral regurgitation and severe pulmonary hypertension. 4. Coronary disease with cardiac stenting. 5. Chronic kidney disease mineral bone disease maintained on calcitriol. 6. Metabolic acidosis secondary to chronic kidney disease maintained on oral bicarb. Better. 7. Fluid overload. Improved with diuresis. Plan: Maintain IV Lasix. Maintain Farxiga. Maintain low-salt diet and fluid restriction. Liberalize fluid intake to 1500 cc/day. Status post [facility] this admission. Hold off today. No evidence of urinary retention. Repeat labs in the morning.
[2024-01-04 13:41] VITALS: BMI 16.2
--- NOTE | 2024-01-04 15:59 | P.PN ---
Subjective 78-year-old female is admitted for extensive lower extremity bilateral pitting pedal edema this is secondary to cor pulmonale right-sided heart failure secondary to severe pulmonary hypertension. Patient still has quite a bit of edema although patient serum sodium dropped with IV Lasix because of which Lasix was switched to oral. Chest x-ray only showed mild vascular congestion patient has some diastolic function but patient mainly has right-sided heart failure and cor pulmonale. Patient is on 2 L of oxygen which she wears at home. 01/03/2024 Patient went into respiratory distress patient appears to have some volume overload may have some wheezing patient was evaluated by pulmonary and increase the IV steroids. Patient still has bilateral pedal edema chest x-ray showing worsening pulmonary edema. Patient will be started on IV Lasix discussed with nephrology patient had worsening creatinine received Samsca despite of which her serum sodium did not improve. 01/04/2024 Patient seen at bedside, no significant overnight events. Patient continues to have bilateral pedal edema in the context of chest x-ray from yesterday showing worsening pulmonary edema. Sodium improved significantly after receiving Samsca yesterday. Will continue patient on IV Lasix which is in agreement with nephrology. Review of systems: Negative except those mentioned above PHYSICAL EXAMINATION: GENERAL: The patient is alert and oriented x3, not in any acute distress. Well developed, well nourished. HEENT: Pupils are round and equally reacting to light. EOMI. No scleral icterus. No conjunctival pallor. Normocephalic, atraumatic. No pharyngeal erythema. No thyromegaly. CARDIOVASCULAR: S1 and S2 present. No murmurs, rubs, or gallops. PULMONARY: Chest is clear to auscultation, no wheezing or crackles. ABDOMEN: Soft, nontender, nondistended, normoactive bowel sounds. No palpable organomegaly. MUSCULOSKELETAL: No joint swelling or deformity. EXTREMITIES: No cyanosis, clubbing, extensive bilateral pitting pedal edema extending up to mid thighs NEUROLOGICAL: Gross neurological examination did not reveal any focal deficits. SKIN: No rashes. Assessment and plan Volume overload: Secondary to right-sided heart failure extensive pedal edema, patient is switched IV Lasix despite of worsening creatinine as patient has cardiorenal syndrome -Chronic diastolic function with acute exacerbation Changed steroids to 40 twice daily Added Xanax 0.25 twice daily as needed for anxiety -Cor pulmonale severe pulmonary hypertension -Hypervolemic hyponatremia: Patient is being started on IV Lasix -Coronary disease with stents in the past -Chronic kidney disease stage IIIa and mineral bone disease on calcitriol metabolic acidosis secondary to chronic kidney disease and is on oral bicarbonate COPD chronic hypoxic and hypercapnic respiratory failure with mild acute exacerbation -Dyslipidemia -Hypothyroidism DVT prophylaxis: On Eliquis at this time Objective - Vital Signs Vital signs: Vital Signs Temp 98.1 F 01/04/24 14:00 Pulse 72 01/04/24 15:48 Resp 17 01/04/24 14:00 BP 146/76 01/04/24 14:00 Pulse Ox 96 01/04/24 14:00 FiO2 Intake & Output 01/03/24 01/04/24 01/04/24 18:59 06:59 18:59 Intake Total 1260 240 354 Output Total 1520 1500 700 Balance -260 -1260 -346 Weight 36.5 kg 36.5 kg Intake: Oral 1260 240 354 Output: Urine 1520 1500 700 Other: Voiding Method Toilet # Voids 1 - Labs CBC & Chem 7: 01/02/24 05:20 01/04/24 07:13 Labs: Abnormal Lab Results - Last 24 Hours (Table) 01/03/24 01/03/24 01/03/24 Range/Units 01:00 14:36 16:02 Sodium 126 L (137-145) mmol/L Carbon Dioxide (21.6-31.8) mmol/L Anion Gap (4.00-12.00) mmol/L BUN (9.0-27.0) mg/dL Est GFR (CKD-EPI) (>=60) BUN/Creatinine Ratio (12.00-20.00) Ratio Glucose (70-110) mg/dL Urine Osmolality 143 L (400-1100) mOsm/kg Ur Random Sodium <20 L (40-220) mmol/L 01/04/24 Range/Units 07:13 Sodium 132 L (137-145) mmol/L Carbon Dioxide 21.3 L (21.6-31.8) mmol/L Anion Gap 12.70 H (4.00-12.00) mmol/L BUN 49.7 H (9.0-27.0) mg/dL Est GFR (CKD-EPI) 35 L (>=60) BUN/Creatinine Ratio 33.13 H (12.00-20.00) Ratio Glucose 198 H (70-110) mg/dL Urine Osmolality (400-1100) mOsm/kg Ur Random Sodium (40-220) mmol/L Microbiology - Last 24 Hours (Table) 12/31/23 22:37 Blood Culture - Preliminary Blood
[2024-01-04] MEDS: ALPRAZolam 0.25 MG TAB PO SCH (16:22)
[2024-01-04] MEDS: methylPREDNISolone SOD SUCCI 40 MG/ML 1 ML VIAL IV SCH (18:32)
[2024-01-04 20:22] VITALS: RESP 16
[2024-01-04] MEDS: ALPRAZolam 0.25 MG TAB PO PRN (21:32)
[2024-01-05 09:22] LABS: BUN/Creat Ratio 34.88 Ratio (12.00-20.00); Blood Urea Nitrogen 59.3 mg/dL (9.0-27.0); Calcium 9.6 mg/dL (8.7-10.3); Carbon Dioxide 22.9 mmol/L (21.6-31.8); Chloride 100 mmol/L (96-109); Glucose 146 mg/dL (70-110); Magnesium 2.4 mg/dL (1.5-2.4); Potassium 4.7 mmol/L (3.5-5.5); Sodium 136 mmol/L (135-145)
--- NOTE | 2024-01-05 11:26 | P.PN ---
Subjective Patient seen in follow-up for acute kidney injury and hyponatremia. Sodium level 136. Renal function slightly worse from diuresis. On IV Lasix. Vital signs are stable. General: No acute distress. HEENT: Head exam is unremarkable. On nasal cannula. LUNGS: No audible rhonchi or wheezes. HEART: Rate and Rhythm are regular. ABDOMEN: Nontender, obese. EXTREMITITES: 2+ edema. Objective - Vital Signs Vital signs: Vital Signs Temp 97.8 F 01/05/24 07:26 Pulse 84 01/05/24 08:28 Resp 16 01/05/24 07:26 BP 125/59 01/05/24 07:26 Pulse Ox 95 01/05/24 08:13 FiO2 Intake & Output 01/04/24 01/05/24 01/05/24 18:59 06:59 18:59 Intake Total 354 680 236 Output Total 200 400 300 Balance 154 280 -64 Weight 36.5 kg 74 kg Intake: Oral 354 680 236 Output: Urine 200 400 300 Other: Voiding Method Toilet - Labs CBC & Chem 7: 01/02/24 05:20 01/05/24 05:27 Labs: Abnormal Lab Results - Last 24 Hours (Table) 01/03/24 01/04/24 01/05/24 Range/Units 14:36 07:13 05:27 Sodium 132 L (135-145) mmol/L Carbon Dioxide 21.3 L (21.6-31.8) mmol/L Anion Gap 12.70 H 13.10 H (4.00-12.00) mmol/L BUN 49.7 H 59.3 H (9.0-27.0) mg/dL Creatinine 1.7 H (0.6-1.5) mg/dL Est GFR (CKD-EPI) 35 L 30 L (>=60) BUN/Creatinine Ratio 33.13 H 34.88 H (12.00-20.00) Ratio Glucose 198 H 146 H (70-110) mg/dL Urine Osmolality 143 L (400-1100) mOsm/kg Microbiology - Last 24 Hours (Table) 12/31/23 22:37 Blood Culture - Preliminary Blood Assessment and Plan Plan: Assessment: 1. Chronic kidney disease stage IIIb with baseline creatinine in the range of 1.1-1.5 secondary to nephrosclerosis and cardiorenal syndrome. Renal function worse from diuresis. Creatinine 1.7. No hydronephrosis noted on kidney ultrasound. 2. Hypervolemic hyponatremia. TSH low at 0.56, free T4 normal. Improved. Urine sodium less than 20 and urine osmolality 143. 3. Acute on chronic diastolic CHF with moderate mitral regurgitation and severe pulmonary hypertension. 4. Coronary disease with cardiac stenting. 5. Chronic kidney disease mineral bone disease maintained on calcitriol. 6. Metabolic acidosis secondary to chronic kidney disease maintained on oral bicarb. Better. 7. Fluid overload. Improved with diuresis. Plan: Stop IV Lasix. Add torsemide 40 mg once daily. Maintain Farxiga. Maintain low-salt diet and fluid restriction. Liberalize fluid intake to 1500 cc/day. [facility]. No evidence of urinary retention. Advised patient to maintain low-salt diet and fluid restriction of less than 50 ounces per day upon discharge. Advised to monitor her weight closely at home and to notify physician if develops worsening edema or gains more than 3 to 4 pounds in 1 week duration. Repeat BMP and magnesium level 2 to 3 days postdischarge and follow-up outpatient in 1 week.
--- NOTE | 2024-01-05 12:27 | P.PN ---
Subjective HISTORY OF PRESENT ILLNESS: HPI: This is a 78-year-old lady with a past medical history that includes atrial fibrillation s/p AV node ablation and permanent pacemaker performed years ago. She actually has a biventricular pacemaker. She has history of CAD with prior PCI of right coronary artery in the past. She has oxygen requiring COPD. She came into the hospital complaining of shortness of breath that was worsening had a recent pneumonia for which she took antibiotics. She has been complaining of some productive cough shortness of breath that was progressively worsening but no chest pain. Clinically patient is in a combination of exacerbation of COPD and also probably some diastolic heart failure. Her JVD is elevated she has wh at seems to be pulmonary hypertension as well. Since arrival after Lasix her breathing has improved somewhat. She has no pain in the chest at this time.. 01/02/2024 Patient examined this morning at the bedside. She currently denies any chest pain or pressure. She reports improvement in her shortness of breath. She remains on IV Lasix. Sodium this morning decreased to 122. 01/03/2024 Patient examined this morning at the bedside. Patient currently denies chest pain or pressure. She denies shortness of breath. She does report having a lot of coughing yesterday. Patient sodium remains low at 122 this morning. She has been followed by nephrology. 01/04/2024 Patient examined this morning the bedside. Patient currently denies chest pain or pressure. She denies shortness of breath at the time of examination. She remains on IV diuretics per nephrology. Labs from this morning are currently pending. 01/05/2024 Patient examined this morning at the bedside. Patient currently denies chest pain or pressure. She denies shortness of breath. She has been transition to Demadex by nephrology. Sodium improved today to 136. PHYSICAL EXAM: VITAL SIGNS: Reviewed. GENERAL: Well-developed in no acute distress. NECK: Supple. No JVD or thyromegaly LUNGS: Respirations even and unlabored. Lungs essentially clear to auscultation bilaterally. HEART: Regular rate and rhythm. S1 and S2 heard. Systolic murmur noted. EXTREMITIES: Normal range of motion. No clubbing or cyanosis. Peripheral pulses intact. 1-2+ bilateral lower extremity edema ASSESSMENT: Shortness of breath Acute on chronic heart failure with preserved EF, 60-65% Acute kidney injury Hyponatremia Acute COPD exacerbation Moderate to severe pulmonary hypertension Persistent atrial fibrillation status post AV donte ablation and dual-chamber pacemaker implantation Coronary arteries with previous stenting of the RCA Hypertension Hyperlipidemia PLAN: Continue diuretics per nephrology. Patient transitioned to Demadex today. Continue additional cardiac medications Patient is currently stable from a cardiac standpoint with no further inpatient recommendations We will sign off. Please reconsult if needed. Nurse practitioner note has been reviewed by physician. Signing provider agrees with the documented findings, assessment, and plan of care documented by CORRECTION LIEUTENANT as a scribe. Objective - Vital Signs Vital signs: Vital Signs Temp 97.8 F 01/05/24 07:26 Pulse 76 01/05/24 11:39 Resp 16 01/05/24 07:26 BP 125/59 01/05/24 07:26 Pulse Ox 95 01/05/24 08:13 FiO2 Intake & Output 01/04/24 01/05/24 01/05/24 18:59 06:59 18:59 Intake Total 354 680 236 Output Total 200 400 300 Balance 154 280 -64 Weight 36.5 kg 74 kg Intake: Oral 354 680 236 Output: Urine 200 400 300 Other: Voiding Method Toilet Toilet - Labs CBC & Chem 7: 01/02/24 05:20 01/05/24 05:27 Labs: Abnormal Lab Results - Last 24 Hours (Table) 01/05/24 Range/Units 05:27 Anion Gap 13.10 H (4.00-12.00) mmol/L BUN 59.3 H (9.0-27.0) mg/dL Creatinine 1.7 H (0.6-1.5) mg/dL Est GFR (CKD-EPI) 30 L (>=60) BUN/Creatinine Ratio 34.88 H (12.00-20.00) Ratio Glucose 146 H (70-110) mg/dL Microbiology - Last 24 Hours (Table) 12/31/23 22:37 Blood Culture - Preliminary Blood
--- NOTE | 2024-01-05 12:40 | P.PN ---
Subjective Progress Note Date: 01/05/24 This is a pleasant 78-year-old female patient with a known history of congestive heart failure, chronic obstructive pulmonary disease, gastroesophageal reflux disease, hypertension, hyperlipidemia, gout, hypothyroidism, atrial fibrillation anticoagulated with Eliquis, coronary artery disease with previous stent placement, severe pulmonary hypertension. She is a former heavy smoker. She is maintained on oxygen at home at 2 L/min per nasal cannula. She presented here to the emergency room yesterday with increasing shortness of breath, cough and congestion. Chest x-ray revealed cardiomegaly with mild pulmonary vascular congestion. White count 7.0. Hemoglobin 10.5. Platelets 210. Sodium 125. Potassium 3.9. Bicarb 12. BUN 32. Creatinine 1.2. Glucose 149. proBNP 11,200. Viral screen negative. She has been initiated on DuoNeb inhalations, Symbicort, Solu-Medrol. Receiving Lasix 40 mg IV every 8 hours. She is seen today in consultation in the emergency department. Currently sitting up on a stretcher. Awake and alert in no acute distress. Breathing a bit easier today compared to yesterday. Not back to her baseline. Maintaining good O2 saturations in the mid 90s on 3 L/min per nasal cannula. She is afebrile. Hemodynamically stable. The patient is seen today January 02, 2024 in follow-up on the regular medical floor. She is currently sitting up in bed. Awake and alert in no acute distress. Maintaining good O2 saturations in the 90s on 3 L/min per nasal cannula. She is feeling better today compared to yesterday. Her procalcitonin was negative at 0.20. She is currently on Lasix 40 mg IV every 8 hours. No accurate intake and output recorded. White count 10.5. Hemoglobin 10.1. Platelets 199. Sodium 122. Potassium 4.0. Bicarb 20. BUN 39. Creatinine 1. 17. Glucose 118. She remains afebrile. Hemodynamically stable. Is on DuoNeb and elations, Symbicort. Anticoagulated with Eliquis. The patient is seen today January 03, 2024 in follow-up on the regular medical floor. She is awake and alert in no acute distress. She is having some wheezing and increased shortness of breath compared to yesterday. She is maintaining good O2 saturation in the 90s on 4 L/min per nasal cannula. She is afebrile. Hemodynamically stable. Blood culture revealed no growth. Sodium 122. Potassium 4.7. Bicarb 18. BUN 46. Creatinine 1.7. Glucose 106. She re karey on Symbicort, DuoNeb inhalations, IV diuretics. Steroids will be resumed. Chest x-ray continues to show cardiomegaly with pulmonary vascular congestion and mild interstitial edema. The patient is seen today January 04, 2024 in follow-up on the regular medical floor. She is awake and alert in no acute distress. Sitting up at the bedside. Maintaining O2 saturation in the 90s on 4 L/min per nasal cannula. She is breathing easier today compared to yesterday. She remains on DuoNeb and e lations, Symbicort, Solu-Medrol. Anticoagulated with Eliquis. Continued on IV diuretics. Currently in a -1.5 L balance. Sodium 132. Potassium 4.7. Bicarb 21. BUN 50. Creatinine 1.5. Glucose 198. She remains on a 1200 mL fluid restriction. Anticoagulated with Eliquis. The patient is seen today January 05, 2024 in follow-up on the regular medical floor. She is currently sitting up at the bedside. Awake and alert in no acute distress. Feeling quite a bit better. Maintaining O2 saturation in the 90s on 4 L/min per nasal cannula. Blood culture reveals no growth. Sodium 136. Potas sium 4.7. Bicarb 23. BUN 59. Creatinine 1.7. Glucose 146. She is continued on DuoNeb inhalations, Symbicort, Solu-Medrol. Currently on oral diuretics. Anticoagulated with Eliquis. Objective - Vital Signs Vital signs: Vital Signs Temp 97.8 F 01/05/24 07:26 Pulse 76 01/05/24 11:39 Resp 16 01/05/24 07:26 BP 125/59 01/05/24 07:26 Pulse Ox 95 01/05/24 08:13 FiO2 Intake & Output 01/04/24 01/05/24 01/05/24 18:59 06:59 18:59 Intake Total 354 680 236 Output Total 200 400 300 Balance 154 280 -64 Weight 36.5 kg 74 kg Intake: Oral 354 680 236 Output: Urine 200 400 300 Other: Voiding Method Toilet Toilet - Exam GENERAL EXAM: Alert, 78-year-old female, sitting up at the bedside, on 4 L nasal cannula, in no apparent distress. HEAD: Normocephalic. EYES: Normal reaction of pupils, equal size. NOSE: Clear with pink turbinates. THROAT: No erythema or exudates. NECK: No masses, no JVD. CHEST: No chest wall deformity. LUNGS: Equal air entry with faint crackles in the posterior bases. CVS: S1 and S2 normal with no audible murmur, regular rhythm. ABDOMEN: No hepatosplenomegaly, normal bowel sounds, no guarding or rigidity. SPINE: No scoliosis or deformity SKIN: No rashes CENTRAL NERVOUS SYSTEM: No focal deficits, tone is normal in all 4 extremities. EXTREMITIES: There is no peripheral edema. No clubbing, no cyanosis. Peripheral pulses are intact. - Labs CBC & Chem 7: 01/02/24 05:20 01/05/24 05:27 Labs: Abnormal Lab Results - Last 24 Hours (Table) 01/05/24 Range/Units 05:27 Anion Gap 13.10 H (4.00-12.00) mmol/L BUN 59.3 H (9.0-27.0) mg/dL Creatinine 1.7 H (0.6-1.5) mg/dL Est GFR (CKD-EPI) 30 L (>=60) BUN/Creatinine Ratio 34.88 H (12.00-20.00) Ratio Glucose 146 H (70-110) mg/dL Microbiology - Last 24 Hours (Table) 12/31/23 22:37 Blood Culture - Preliminary Blood Assessment and Plan Assessment: Acute on chronic hypoxemic respiratory failure secondary to an acute exacerbation of diastolic congestive heart failure Acute on chronic hypoxemic respiratory failure secondary to an acute exacerbation of chronic obstructive pulmonary disease Hyponatremia, improving Chronic hypoxemic respiratory failure secondary to COPD, normally on oxygen at 2 L. Maintained on Trelegy and DuoNebs Former heavy smoker Severe pulmonary hypertension Atrial fibrillation, anticoagulated with Eliquis, status post permanent pacemake r implantation Coronary artery disease with previous stent placement Hypertension Hyperlipidemia History of gout Hypothyroidism Hearing disorder Macular degeneration Plan: The patient was seen and evaluated Labs and medications reviewed Cleared for discharge from the pulmonary standpoint Continue her home pulmonary medications/oxygen Complete a prednisone taper Follow-up in the office in 1 week I have personally seen and examined the patient, performed the documentation and the assessment and plan as written. Number of minutes spent on the visit: 10. Dictation was produced using [email or web address] dictation software. Please excuse any grammatical, word or spelling errors.
--- NOTE | 2024-01-05 14:26 | P.DS ---
Providers Date of admission: 01/03/24 09:34 Attending physician: May Tanner Consults: 12/31/23 18:49 Consult Physician Routine Consulting Provider: Lj Goff Consult Reason/Comments: copd Do you want consulting provider notified?: Yes Consult Physician Routine Consulting Provider: [facility] Consult Reason/Comments: chf Do you want consulting provider notified?: Yes 01/02/24 08:19 Consult Physician Routine Consulting Provider: Leann Woodruff Consult Reason/Comments: hyponatremia Do you want consulting provider notified?: Yes Primary care physician: Nirali Elizabeth Hospital Course: Discharge Diagnosis: Volume overload: Secondary to right heart failure extensive pedal edema Chronic diastolic function with acute exacerbation Cor pulmonale oh severe pulmonary hypertension Hypervolemic hyponatremia Coronary artery disease with stents in the past CKD stage IIIa and mineral bone disease COPD chronic hypoxic and hypercapnic respiratory failure with mild acute exacerbation Dyslipidemia Hypothyroidism Hospital Course: History of present illness;78-year-old female with a past medical history of COPD (on 3 L at home), CAD, atrial fibrillation (on Eliquis), hypothyroidism, and dyslipidemia presents with complaints of worsening shortness of breath and productive cough. Patient reports her symptoms have been going on for few weeks but have worsened over the last day. States she was recently treated outpatient for pneumonia with oral antibiotics, and reports she has completed the course of antibiotics. Patient reports she thinks this is her COPD flaring up. Patient denies fever, chills, nausea, vomiting, diarrhea, abdominal pain, and chest pain but admits to worsening productive cough with thick yellow mucus. Reports a productive cough is not unusual for her but seeing yellow and green mucus is new over the last couple of days. Initial lab work from the ER was significant for WBC 7.9, hemoglobin 10.8, MCV 73.9, sodium 128, creatinine 1.04, AST 50, ALT 26, alkaline phosphatase 128, BNP 11,200, and influenza type A and B, RSV, and SARS COVID negative. EKG done in the ER showed heart rate of 62 bpm, no ST segment elevation or depression seen, no T-wave inversions seen. Electronic ventricular pacemaker ER CXR: Cardiomegaly and mild pulmonary vascular congestion 01/03/2024 Patient went into respiratory distress patient appears to have some volume overload may have some wheezing patient was evaluated by pulmonary and increase the IV steroids. Patient still has bilateral pedal edema chest x-ray showing worsening pulmonary edema. Patient will be started on IV Lasix discussed with nephrology patient had worsening creatinine received Samsca despite of which her serum sodium did not improve. 01/04/2024 Patient seen at bedside, no significant overnight events. Patient continues to have bilateral pedal edema in the context of chest x-ray from yesterday showing worsening pulmonary edema. Sodium improved significantly after receiving Samsca yesterday. Will continue patient on IV Lasix which is in agreement with nephrology. While admitted patient was found to be hyponatremic and was seen by nephrology. Patient was given Samsca which significantly improved her hyponatremia with her sodium level at time of discharge 136 after previously being 122 on admission. For the patient's lower extremity edema she was started on an IV version of her home Lasix dose 40 mg with some improvement in the lower extremity swelling. Patient also received an ultrasound of the kidney/renal and bladder which showed renal cystic changes but no evidence of hydronephrosis nor nephrolithiasis nor solid masses and the urinary bladder is anechoic. Patient also received an additional chest x-ray which showed cardiomegaly and mild pulmonary vascular congestion with mild interstitial edema. Patient also received a series of breathing treatments and IV steroids with improvement in her wheezing and overall breathing issues. At time of discharge patient was converted from IV Solu-Medrol to a prednisone taper that she will continue to take as an outpatient. Patient was also given a short 3-day course of 0.25 mg Xanax twice daily as needed. Patient was instructed that if she continues to have anxiety and needs more Xanax she will have to discuss this with her PCP when she follows up with them outpatient. Patient is medically and hemodynamically stable for discharge. 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 Pt seen and examined at bedside: Patient seated at the side of the bed, excited at the prospect of leaving. Vital signs reveiwed and stable: General: non toxic, no distre twice daily .ss, appears at stated age, normal weight Derm: no unusual rashes/lesions, warm Head: atraumatic, normocephalic, symmetric Eyes: EOMI, no lid lag, anicteric sclera, pupils equal round reactive to light ENT: Nose and ears atraumatic Neck: No cervical lymphadenopathy, trachea midline, supple Mouth: no lip lesion, mucus membranes moist Cardiovascular: S1S2 reg, no murmur, positive dorsalis pedis pulse bilateral, no edema Lungs: Decreased air entry bilaterally, no rhonchi, no rales, no accessory muscle use Abdominal: soft, nontender to palpation, no guarding Ext: muscle strength 5 out of 5 in all 4 extremities grossly, no gross muscle atrophy, no contractures, Neuro: CN II-XI grossly intact, no gross focal neuro deficits Psych: Alert, oriented, appropriate affect A total of greater than 30 minutes were spent preparing this complex discarge summary. Patient was discharged on 01/05/2024, 13: 57. Patient Condition at Discharge: Stable Plan - Discharge Summary Discharge Rx Participant: No New Discharge Prescriptions: New ALPRAZolam [Xanax] 0.25 mg PO BID PRN 3 Days #6 tab PRN Reason: Anxiety predniSONE See Taper PO DAILY 12 Days #30 tab Continue Vit C/E/Zn/Coppr/Lutein/Zeaxan [Preservision Areds 2 Softgel] 1 cap PO BID Atorvastatin [Lipitor] 40 mg PO HS #30 tab allopurinoL [Zyloprim] 100 mg PO DAILY Fluticasone/Umeclidin/Vilanter [Trelegy Ellipta 100-62.5-25] 1 puff INHALATION RT-DAILY Aspirin [Josephine Aspirin EC] 81 mg PO DAILY Cholecalciferol [Vitamin D3 (25 Mcg = 1000 Iu)] 25 mcg PO DAILY Ipratropium-Albuterol Nebulize [Duoneb 0.5 mg-3 mg/3 ml Soln] 3 ml INHALATION RT-QID Apixaban [Eliquis] 5 mg PO BID Furosemide [Lasix] 40 mg PO BID@0900,1600 #60 tab Metoprolol Succinate (ER) [Toprol XL] 50 mg PO DAILY #30 tab Empagliflozin [Jardiance] 10 mg PO DAILY Sodium Bicarbonate 325 mg PO BID calcitrioL 0.25 mcg PO MOWEFR Albuterol Sulfate [Ventolin HFA] 2 puff INHALATION RT-QID PRN 7 Days #1 each PRN Reason: Shortness Of Breath Levothyroxine Sodium [Synthroid] 50 mcg PO DAILY Potassium Chloride ER [K-Dur 10] 10 meq PO DAILY Omeprazole 20 mg PO DAILY Gabapentin [Neurontin] 100 mg PO BID Cranberry Fruit Extract [Cranberry] 500 mg PO BID Discharge Medication List Vit C/E/Zn/Coppr/Lutein/Zeaxan [Preservision Areds 2 Softgel] 1 cap PO BID 03/02/15 [History] Atorvastatin [Lipitor] 40 mg PO HS #30 tab 03/04/15 [Rx] allopurinoL [Zyloprim] 100 mg PO DAILY 10/22/18 [History] Fluticasone/Umeclidin/Vilanter [Trelegy Ellipta 100-62.5-25] 1 puff INHALATION RT-DAILY 07/01/19 [History] Aspirin [Josephine Aspirin EC] 81 mg PO DAILY 08/09/19 [History] Cholecalciferol [Vitamin D3 (25 Mcg = 1000 Iu)] 25 mcg PO DAILY 05/23/20 [History] Ipratropium-Albuterol Nebulize [Duoneb 0.5 mg-3 mg/3 ml Soln] 3 ml INHALATION RT-QID 10/28/21 [History] Apixaban [Eliquis] 5 mg PO BID 04/09/23 [History] Sodium Bicarbonate 325 mg PO BID 04/09/23 [History] calcitrioL 0.25 mcg PO MOWEFR 04/09/23 [History] Albuterol Sulfate [Ventolin HFA] 2 puff INHALATION RT-QID PRN 7 Days #1 each 04/13/23 [Rx] Furosemide [Lasix] 40 mg PO BID@0900,1600 #60 tab 04/13/23 [Rx] Levothyroxine Sodium [Synthroid] 50 mcg PO DAILY 07/13/23 [History] Metoprolol Succinate (ER) [Toprol XL] 50 mg PO DAILY #30 tab 07/18/23 [Rx] Cranberry Fruit Extract [Cranberry] 500 mg PO BID 12/31/23 [History] Empagliflozin [Jardiance] 10 mg PO DAILY 12/31/23 [History] Gabapentin [Neurontin] 100 mg PO BID 12/31/23 [History] Omeprazole 20 mg PO DAILY 12/31/23 [History] Potassium Chloride ER [K-Dur 10] 10 meq PO DAILY 12/31/23 [History] ALPRAZolam [Xanax] 0.25 mg PO BID PRN 3 Days #6 tab 01/05/24 [Rx] predniSONE See Taper PO DAILY 12 Days #30 tab 01/05/24 [Rx] Follow up Appointment(s)/Referral(s): Gibran Rain MD [STAFF PHYSICIAN] - 1 Week Malvin Love MD [STAFF PHYSICIAN] - 1 Week Nirali Elizabeth MD [Primary Care Provider] - 1-2 days Canelo Yeager DO [STAFF PHYSICIAN] - 1 Week Patient Instructions/Handouts: Heart Failure (DC), Acute Bronchitis (ED), COPD (Chronic Obstructive Pulmonary Disease) (DC) Discharge Disposition: HOME SELF-CARE
[2024-01-05 14:29] VITALS: BP 144/63; PULSE 68; TEMP 97.5
[2024-01-06] MEDS ORDERED: TORSEMIDE 20 MG TAB PO SCH (09:00)
== END 2024-01-05 15:15 | disposition home or self-care (01) | DRG 291 ==
LOC: EC 15:34 → 5NMEDONC 18:49 → 1SOBS 01-01 12:31 → 6NMEDSUR 01-02 05:53 → OBSVTOIN 01-03 09:34
PROVIDERS: ADMIT Hospitalist; ATTEND Hospitalist
DX: I13.0 Hypertensive heart and chronic kidney disease with heart failure and stage 1 through stage 4 chronic kidney disease, or unspecified chronic kidney disease (principal); I50.33 Acute on chronic diastolic (congestive) heart failure; J96.21 Acute and chronic respiratory failure with hypoxia; J96.22 Acute and chronic respiratory failure with hypercapnia; E87.1 Hypo-osmolality and hyponatremia; E87.20 Acidosis, unspecified; I48.19 Other persistent atrial fibrillation; J44.0 Chronic obstructive pulmonary disease with (acute) lower respiratory infection; J44.1 Chronic obstructive pulmonary disease with (acute) exacerbation; N17.9 Acute kidney failure, unspecified; I27.29 Other secondary pulmonary hypertension; Z79.01 Long term (current) use of anticoagulants; I27.81 Cor pulmonale (chronic); E83.9 Disorder of mineral metabolism, unspecified; Z99.81 Dependence on supplemental oxygen; E03.9 Hypothyroidism, unspecified; E78.5 Hyperlipidemia, unspecified; H35.30 Unspecified macular degeneration; H91.90 Unspecified hearing loss, unspecified ear; I25.10 Atherosclerotic heart disease of native coronary artery without angina pectoris; I25.2 Old myocardial infarction; I34.0 Nonrheumatic mitral (valve) insufficiency; M81.0 Age-related osteoporosis without current pathological fracture; N18.32 Chronic kidney disease, stage 3b; M10.9 Gout, unspecified; T50.2X5A Adverse effect of carbonic-anhydrase inhibitors, benzothiadiazides and other diuretics, initial encounter; Z87.01 Personal history of pneumonia (recurrent); Z79.51 Long term (current) use of inhaled steroids; Z79.82 Long term (current) use of aspirin; Z79.84 Long term (current) use of oral hypoglycemic drugs; Z79.890 Hormone replacement therapy; Z79.899 Other long term (current) drug therapy; Z85.828 Personal history of other malignant neoplasm of skin; Z87.891 Personal history of nicotine dependence; Z95.0 Presence of cardiac pacemaker; Z95.5 Presence of coronary angioplasty implant and graft; Z28.310 Unvaccinated for COVID-19; Z28.21 Immunization not carried out because of patient refusal; Z88.5 Allergy status to narcotic agent; Z87.440 Personal history of urinary (tract) infections; E04.1 Nontoxic single thyroid nodule; K21.9 Gastro-esophageal reflux disease without esophagitis; K44.9 Diaphragmatic hernia without obstruction or gangrene; M19.90 Unspecified osteoarthritis, unspecified site
CPT/HCPCS: 36415; 71045; 71046; 76770; 80048; 80053; 83735; 83880; 83930; 83935; 84145; 84295; 84300; 84439; 84443; 84481; 85025; 85027; 85610; 85730; 87040; 87636; 93005; 94640; 94760; 96365; 96367; 96375; 96376; 99285

== ENCOUNTER 2024-01-15 05:51 | Inpatient (IN) | payer MEDICARE ==
[2024-01-15] MEDS: IPRATROPIUM-ALBUTEROL 3 ML NEB INHALATION STA (06:39)
--- NOTE | 2024-01-15 06:41 | ED ---
Chest Pain HPI - General Chief Complaint: Chest Pain Stated Complaint: Chest pain Time Seen by Provider: 01/15/24 05:58 Source: patient, EMS, RN notes reviewed Mode of arrival: EMS Limitations: no limitations - History of Present Illness Initial Comments: This is a 78-year-old female who presents to the emergency department for chest pain. Patient was discharged from this facility on 01/05/2024 for COPD and CHF exacerbation. States that after discharge she felt great. However, over the last 1-2 days she started to develop intermittent chest pain. She did not have any chest pain during that admission. Pain is described as a centralized pressure sensation. The pain occurs both at rest and with exertion. States that tonight the pain became much worse and would not go away, prompting her to call EMS. EMS gave her aspirin and nitroglycerin when they arrived. Unsure if this was helpful, as she states that the pain was already starting to subside on its own when she was given it. She does have 1 stent that she states was done in 2011. MD Complaint: chest pain - Related Data Home Medications Medication Instructions Recorded Confirmed Vit C/E/Zn/Coppr/Lutein/Zeaxan 1 cap PO BID 03/02/15 01/15/24 [Preservision Areds 2 Softgel] allopurinoL [Zyloprim] 100 mg PO BID 10/22/18 01/15/24 Fluticasone/Umeclidin/Vilanter 1 puff INHALATION RT-DAILY 07/01/19 01/15/24 [Trelegy Ellipta 100-62.5-25] Aspirin [[place] Aspirin EC] 81 mg PO DAILY 08/09/19 01/15/24 Cholecalciferol [Vitamin D3 (25 25 mcg PO DAILY 05/23/20 01/15/24 Mcg = 1000 Iu)] Ipratropium-Albuterol Nebulize 3 ml INHALATION RT-QID 10/28/21 01/15/24 [Duoneb 0.5 mg-3 mg/3 ml Soln] Apixaban [Eliquis] 5 mg PO BID 04/09/23 01/15/24 Sodium Bicarbonate 325 mg PO BID 04/09/23 01/15/24 calcitrioL 0.25 mcg PO MOWEFR 04/09/23 01/15/24 Levothyroxine Sodium [Synthroid] 50 mcg PO DAILY 07/13/23 01/15/24 Cranberry Fruit Extract [Cranberry] 500 mg PO BID 12/31/23 01/15/24 Empagliflozin [Jardiance] 10 mg PO DAILY 12/31/23 01/15/24 Gabapentin [Neurontin] 100 mg PO BID 12/31/23 01/15/24 Omeprazole 20 mg PO DAILY 12/31/23 01/15/24 Potassium Chloride ER [K-Dur 10] 10 meq PO DAILY 12/31/23 01/15/24 ALPRAZolam [Xanax] 0.25 mg PO DAILY PRN 01/15/24 01/15/24 Levofloxacin [Levaquin] 500 mg PO DAILY 01/15/24 01/15/24 Torsemide [Demadex] 40 mg PO DAILY 01/15/24 01/15/24 predniSONE See Taper PO DIRECTED 01/15/24 01/15/24 Previous Rx's Medication Instructions Recorded Atorvastatin [Lipitor] 40 mg PO HS #30 tab 03/04/15 Albuterol Sulfate [Ventolin HFA] 2 puff INHALATION RT-QID PRN 7 04/13/23 Days #1 each Metoprolol Succinate (ER) [Toprol 50 mg PO DAILY #30 tab 07/18/23 XL] Allergies Allergy/AdvReac Type Severity Reaction Status Date / Time codeine Allergy Itching Verified 01/15/24 05:57 Review of Systems ROS Statement: Those systems with pertinent positive or pertinent negative responses have been documented in the HPI. ROS Other: All systems not noted in ROS Statement are negative. Past Medical History Past Medical History: Atrial Fibrillation, Asthma, Coronary Artery Disease (CAD), Cancer, COPD, Eye Disorder, Hearing Disorder / Deafness, Myocardial Infarction (NH), Osteoarthritis (OA), Pneumonia, Thyroid Disorder Additional Past Medical History / Comment(s): Gout, hiatal hernia, Macular Degeneration, Skin Cancer, degenerative disc disease, osteoporosis. UTI 07/01/19. Last Myocardial Infarction Date:: 2011 History of Any Multi-Drug Resistant Organisms: None Reported Past Surgical History: Cardiac Ablation, Cholecystectomy, Heart Catheterization With Stent, Hysterectomy, Orthopedic Surgery, Pacemaker, Tonsillectomy Additional Past Surgical History / Comment(s): Right shoulder surgery, left wrist surgery. Thyroid Nodule removed, sylvia Cataracts, LOOP RECORDER-11/23/17; CHRIO ABLATION 03/08/18 WITH CARDIOVERSION Past Anesthesia/Blood Transfusion Reactions: No Reported Reaction Date of Last Stent Placement:: 2011 Type of Cardiac Device: Permanent Pacemaker Device Placement Date:: 07/2019 Past Psychological History: No Psychological Hx Reported Smoking Status: Former smoker Past Alcohol Use History: None Reported Past Drug Use History: None Reported - Past Family History Mother Family Medical History: Cancer, Congestive Heart Failure (CHF), Myocardial Infarction (NH), Pneumonia, Pulmonary Embolus Additional Family Medical History / Comment(s): breast CA Father Family Medical History: CVA/TIA, Myocardial Infarction (NH) General Exam Limitations: no limitations General appearance: alert, in no apparent distress Head exam: Present: atraumatic, normocephalic, normal inspection Respiratory exam: Present: wheezes, decreased breath sounds, prolonged expiratory Cardiovascular Exam: Present: regular rate, normal rhythm, normal heart sounds. Absent: systolic murmur, diastolic murmur, rubs, gallop, clicks Neurological exam: Present: alert, oriented X3, CN II-XII intact Psychiatric exam: Present: normal affect, normal mood Skin exam: Present: warm, dry, intact, normal color. Absent: rash Course Vital Signs 01/15/24 01/15/24 01/15/24 05:57 06:41 06:46 Temperature 97.9 F Pulse Rate 87 55 L 59 L Respiratory 20 Rate Blood Pressure 133/81 O2 Sat by Pulse 90 L Oximetry 01/15/24 01/15/24 01/15/24 07:22 08:03 08:15 Temperature 98.0 F Pulse Rate 59 L 65 66 Respiratory 20 Rate Blood Pressure 138/53 O2 Sat by Pulse 90 L Oximetry 01/15/24 01/15/24 01/15/24 08:41 10:25 11:06 Temperature Pulse Rate 62 60 69 Respiratory 20 22 Rate Blood Pressure 118/82 126/59 O2 Sat by Pulse 92 L 90 L Oximetry 01/15/24 01/15/24 01/15/24 11:12 11:30 13:51 Temperature Pulse Rate 76 60 60 Respiratory 18 18 Rate Blood Pressure 138/61 113/51 O2 Sat by Pulse 91 L 95 Oximetry 01/15/24 01/15/24 15:01 15:06 Temperature Pulse Rate 61 64 Respiratory Rate Blood Pressure O2 Sat by Pulse Oximetry Chest Pain MDM - MDM This is a 78 year old female who presents to the emergency department for chest pain. Was pt. sent in by a medical professional or institution? @ -No Did you speak to anyone other than the patient for history? @ -No Did you review nursing and triage notes? @ -Yes, and I agree, it is accurate with regards to the patient's symptoms. Were old charts reviewed? @ -No Differential Diagnosis? @ -Differential Chest Pain: Stable Angina, Unstable Angina, STEMI, NSTEMI Aortic Dissection, Pneumothorax, Musculoskeletal, Esophageal Spasm GERD, Cholecystitis, Pancreatitis, Zoster, this is not meant to be an all-inclusive list. EKG interpreted by me (3pts min.)? @ -EKG interpreted by me demonstrating the following: Electronic ventricular pacemaker. Ventricular rate 78 bpm, QRS duration 146 ms, QRS duration 417 ms. X-rays interpreted by me (1pt min.)? @ -Chest x-ray obtained. Interpretation identifies pulmonary vascular congestion. CT interpreted by me (1pt min.)? @ -Not obtained U/S interpreted by me (1pt. min.)? @ -Not obtained What testing was considered but not performed? (CT, X-rays, U/S, labs)? Why? @ -None What meds were considered but not given? Why? @ -None Did you discuss the management of the patient with other professionals? @ -Yes, Dr. Leary, who accepts the patient for admission. Did you reconcile home meds? @ -Yes Was smoking cessation discussed for >3mins.? @ -No Was critical care preformed (if so, how long)? @ -No Were there social determinants of health that impacted care today? How? (Homelessness, low income, unemployed, alcoholism, drug addiction, transportation, low edu. Level, literacy, decrease access to med. care, longterm, rehab)? @ -No Was there de-escalation of care discussed even if they declined? (Discuss DNR or withdrawal of care, Hospice)? @ -No What co-morbidities impacted this encounter? (DM, HTN, Smoking, COPD, CAD, Cancer, CVA, Hep., AIDS, mental health diagnosis, sleep apnea, morbid obesity)? @ -CAD, a-fib, COPD Was patient admitted / discharged? @ -Admitted. Lab work demonstrates leukocytosis with a white blood cell count of 18.8. Patient was just discharged from the hospital and had been on IV steroids, which may be the cause of this. BNP elevated at 25,500, which is higher than it had been. During her prior admission it was 11,200. Troponin elevated at 0.068. This is similar to prior values, and troponin is almost always elevated for the patient. Chest x-ray demonstrates pulmonary vascular congestion and is similar to prior imaging. Her heart rate had been dropping down into the 20s. Patient does have a pacemaker. She did feel somewhat lightheaded during a couple of these episodes. Pacemaker interrogation ordered. She started to develop intermittent bouts of chest pain while in the emergency department and Nitropaste was applied. 40mg of IV lasix administered for CHF. Patient admitted to medicine for cardiac observation with elevated troponin and CHF exacerbation. Serial troponins ordered. Consult placed for cardiology. Case discussed with ED attending, Dr. Noyola. Undiagnosed new problem with uncertain prognosis? @ -None Drug Therapy requiring intensive monitoring for toxicity (Heparin, Nitro, Insulin, Cardizem)? @ -None Were any procedures done? @ -None Diagnosis/symptom? @ -Chest pain, elevated troponin Acute, or Chronic, or Acute on Chronic? @ -Acute Uncomplicated (without systemic symptoms) or Complicated (systemic symptoms)? @ -Uncomplicated Side effects of treatment? @ -None Exacerbation, Progression, or Severe Exacerbation] @ -Not applicable Poses a threat to life or bodily function? @ -Yes, if due to ACS it can be life threatening Disposition Clinical Impression: Chest pain, Elevated troponin, CHF exacerbation Disposition: ADMITTED IP TO THIS HOSP
[2024-01-15 06:42] LABS: Anisocytosis Moderate; Basophils # (A) 0.1 k/uL (0-0.2); Basophils % (A) 1 %; Eosinophils % (A) 0 %; HCT 37.9 % (34.0-46.0); HGB 11.5 gm/dL (11.4-16.0); Hypochromasia Marked; Lymphocytes % (A) 10 %; MCH 22.4 pg (25.0-35.0); MCHC 30.4 g/dL (31.0-37.0); MCV 73.6 fL (80.0-100.0); Mean Platelet Volume 6.5; Microcytosis Marked; Monocytes # (A) 1.1 k/uL (0-1.0); Monocytes % (A) 6 %; Neutrophils # (A) 15.4 k/uL (1.3-7.7); Neutrophils % (A) 82 %; Platelet Count 129 k/uL (150-450); RBC 5.15 m/uL (3.80-5.40); RDW 21.2 % (11.5-15.5); WBC 18.8 k/uL (3.8-10.6)
[2024-01-15 06:56] LABS: ALT 31 U/L (4-34); African American GFR (CKD) 47 (>60 ml/min/1.73 sqM); Anion Gap 9 mmol/L; Blood Urea Nitrogen 70 mg/dL (7-17); Calcium 9.5 mg/dL (8.4-10.2); Carbon Dioxide 26 mmol/L (22-30); Chloride 98 mmol/L (98-107); Glucose 98 mg/dL (74-99); Non-African American GFR(CKD) 41 (>60 ml/min/1.73 sqM); Sodium 133 mmol/L (137-145); Total Bilirubin 1.4 mg/dL (0.2-1.3); Total Protein 6.4 g/dL (6.3-8.2)
[2024-01-15 07:02] LABS: INR 1.2 (<1.2); Partial Thromboplastin Time 22.2 sec (22.0-30.0); Prothrombin Time 12.4 sec (10.0-12.5)
[2024-01-15 07:04] LABS: AST 67 U/L (14-36); Alkaline Phosphatase 123 U/L (38-126); Magnesium 2.2 mg/dL (1.6-2.3); NT-Pro-B-Type Natriuretic Pept 25500 pg/mL
--- NOTE | 2024-01-15 07:05 | XR ---
EXAMINATION TYPE: XR chest 2V DATE OF EXAM: 01/15/2024 COMPARISON: Chest x-ray January 03, 2024 HISTORY: Chest pain and shortness of breath TECHNIQUE: Frontal and lateral views of the chest are obtained. FINDINGS: Persistent cardiomegaly with multi lead pacemaker and atherosclerotic thoracic aorta. No s uspicious focal airspace opacity, pleural effusion, or pneumothorax seen bilaterally. Osseous structu res remain demineralized. Mild diffuse interstitial prominence redemonstrated. IMPRESSION: Cardiomegaly with perhaps mild central vascular congestion. Correlate for CHF exacerbati on/fluid overload state. No significant change from most recent prior. [facility], , 01/15/2024 7:03 AM
[2024-01-15] MEDS ORDERED: MORPHINE SULFATE 4 MG/ML SYRINGE IV PRN (07:48)
[2024-01-15] MEDS ORDERED: NALOXONE 0.4 MG/ML 1 ML VIAL IV PRN (07:48)
[2024-01-15] MEDS ORDERED: ACETAMINOPHEN TAB 325 MG TAB PO PRN (07:48)
[2024-01-15] MEDS: IPRATROPIUM-ALBUTEROL 3 ML NEB INHALATION SCH (08:03)
[2024-01-15] MEDS: FUROSEMIDE 10 MG/ML 4 ML VIAL IV STA (08:40)
[2024-01-15] MEDS: NITROGLYCERIN OINT 1 INCH/GM PACKET TOPICAL STA (08:43)
[2024-01-15] MEDS: PANTOPRAZOLE 40 MG/10 ML VIAL IV SCH (08:46)
[2024-01-15] MEDS: HYDROcodone/APAP 5-325MG 1 EACH TAB PO PRN (08:47)
[2024-01-15] MEDS ORDERED: ALBUTEROL HFA INHALER INHALATION PRN (09:00)
[2024-01-15] MEDS: ASPIRIN 81 MG PO SCH (10:17)
[2024-01-15] MEDS: LEVOTHYROXINE 50 MCG TAB PO SCH (10:27)
[2024-01-15] MEDS: CHOLECALCIFEROL 25 MCG (1000 IU) TABLET PO SCH (10:28)
[2024-01-15] MEDS: DAPAGLIFLOZIN PROPANEDIOL 5 MG TABLET PO SCH (10:28)
[2024-01-15] MEDS: METOPROLOL SUCCINATE (ER) 50 MG TAB.ER.24H PO SCH (10:28)
[2024-01-15] MEDS: allopurinoL 100 MG TAB PO SCH (10:28)
[2024-01-15] MEDS: SODIUM BICARBONATE TAB 650 MG TAB PO SCH (10:28)
[2024-01-15] MEDS: TORSEMIDE 20 MG TAB PO SCH (10:28)
[2024-01-15] MEDS: APIXABAN 5 MG TAB PO SCH (10:28)
[2024-01-15] MEDS: POTASSIUM CHLORIDE ER 10 MEQ TAB.ER.PRT PO SCH (10:29)
[2024-01-15] MEDS: NON FORMULARY DRUG (Omeprazole [Omeprazole] 20 MG Capsule.Dr) PO SCH (10:31)
[2024-01-15] MEDS: CRANBERRY FRUIT EXTRACT 500 MG PO SCH (10:31)
[2024-01-15] MEDS: GABAPENTIN 100 MG CAP PO SCH (10:34)
--- NOTE | 2024-01-15 10:58 | P.HPIM ---
History of Present Illness 78-year-old female came in with complaints of chest pain on the left side of the chest radiating to the entire precordium on the left side. Patient does have history of COPD and also has chronic diastolic dysfunction patient was compl aining of some orthopnea chest x-ray is consistent with pulmonary edema although patient does not have any significant pedal edema. Patient usually takes 40 mg of torsemide at home patient had a recent hospitalization at the time she was treated for COPD exacerbation, hyponatremia patient was given Samsca presents with serum sodium is 133 patient has serum creatinine of 1.27 does have chronic kidney disease with baseline creatinine around 1.3-1.5. This may be secondary to cardiorenal syndrome patient also has severe pulmonary hypertension. Patient had history of coronary disease with stent in 2011 troponins are slightly elevated to 0.068 and 0.084. Patient's BNP is 25,000 and her previous BNP was 11,200. Patient is presently on 4 L of oxygen patient does not use oxygen at home unsure how many liters she uses at home REVIEW OF SYSTEMS: All other systems are negative except those mentioned in the HPI PHYSICAL EXAMINATION: GENERAL: The patient is alert and oriented x3, not in any acute distress. Well developed, well nourished. HEENT: Pupils are round and equally reacting to light. EOMI. No scleral icterus. No conjunctival pallor. Normocephalic, atraumatic. No pharyngeal erythema. No thyromegaly. CARDIOVASCULAR: S1 and S2 present. No murmurs, rubs, or gallops. PULMONARY: Slightly diminished air entry to bilateral lung moreno no wheezing or crackles were appreciated ABDOMEN: Soft, nontender, nondistended, normoactive bowel sounds. No palpable organomegaly. MUSCULOSKELETAL: No joint swelling or deformity. EXTREMITIES: No cyanosis, clubbing, or pedal edema. NEUROLOGICAL: Gross neurological examination did not reveal any focal deficits. SKIN: No rashes. Assessment and plan Acute on chronic hypoxic respiratory failure: Secondary to CHF exacerbation patient will be started on IV Lasix twice a day cardiology will evaluate the patient -Elevated troponins possibility of NSTEMI most probably type II from CHF and renal dysfunction although cannot rule out type I non-ST elevation [place], cardiology was consulted. Patient is not on IV heparin at this time patient is on Eliquis -chronic kidney disease stage II-IIIb -Chronic hypercapnic respiratory failure secondary to COPD exacerbation patient does not appear to be in COPD exacerbation at this time -Congestive failure chronic diastolic function with acute exacerbation -Severe pulmonary hypertension and cor pulmonale -Hyperlipidemia -Hypothyroidism DVT prophylaxis: On Eliquis Past Medical History Past Medical History: Atrial Fibrillation, Asthma, Coronary Artery Disease (CAD), Cancer, COPD, Eye Disorder, Hearing Disorder / Deafness, Myocardial Infarction ([place]), Osteoarthritis (OA), Pneumonia, Thyroid Disorder Additional Past Medical History / Comment(s): Gout, hiatal hernia, Macular Degeneration, Skin Cancer, degenerative disc disease, osteoporosis. UTI 07/01/19. Last Myocardial Infarction Date:: 2011 History of Any Multi-Drug Resistant Organisms: None Reported Past Surgical History: Cardiac Ablation, Cholecystectomy, Heart Catheterization With Stent, Hysterectomy, Orthopedic Surgery, Pacemaker, Tonsillectomy Additional Past Surgical History / Comment(s): Right shoulder surgery, left wrist surgery. Thyroid Nodule removed, sylvia Cataracts, LOOP RECORDER-11/23/17; CHRIO ABLATION 03/08/18 WITH CARDIOVERSION Past Anesthesia/Blood Transfusion Reactions: No Reported Reaction Date of Last Stent Placement:: 2011 Type of Cardiac Device: Permanent Pacemaker Device Placement Date:: 07/2019 Past Psychological History: No Psychological Hx Reported Smoking Status: Former smoker Past Alcohol Use History: None Reported Past Drug Use History: None Reported - Past Family History Mother Family Medical History: Cancer, Congestive Heart Failure (CHF), Myocardial Infarction ([place]), Pneumonia, Pulmonary Embolus Additional Family Medical History / Comment(s): breast CA Father Family Medical History: CVA/TIA, Myocardial Infarction ([place]) Medications and Allergies Home Medications Medication Instructions Recorded Confirmed Type Vit C/E/Zn/Coppr/Lutein/Zeaxan 1 cap PO BID 03/02/15 01/15/24 History [Preservision Areds 2 Softgel] Atorvastatin [Lipitor] 40 mg PO HS #30 tab 03/04/15 01/15/24 Rx allopurinoL [Zyloprim] 100 mg PO BID 10/22/18 01/15/24 History Fluticasone/Umeclidin/Vilanter 1 puff INHALATION RT-DAILY 07/01/19 01/15/24 History [Trelegy Ellipta 100-62.5-25] Aspirin [[place] Aspirin EC] 81 mg PO DAILY 08/09/19 01/15/24 History Cholecalciferol [Vitamin D3 (25 25 mcg PO DAILY 05/23/20 01/15/24 History Mcg = 1000 Iu)] Ipratropium-Albuterol Nebulize 3 ml INHALATION RT-QID 10/28/21 01/15/24 History [Duoneb 0.5 mg-3 mg/3 ml Soln] Apixaban [Eliquis] 5 mg PO BID 04/09/23 01/15/24 History Sodium Bicarbonate 325 mg PO BID 04/09/23 01/15/24 History calcitrioL 0.25 mcg PO MOWEFR 04/09/23 01/15/24 History Albuterol Sulfate [Ventolin HFA] 2 puff INHALATION RT-QID PRN 7 04/13/23 01/15/24 Rx Days #1 each Levothyroxine Sodium [Synthroid] 50 mcg PO DAILY 07/13/23 01/15/24 History Metoprolol Succinate (ER) [Toprol 50 mg PO DAILY #30 tab 07/18/23 01/15/24 Rx XL] Cranberry Fruit Extract [Cranberry] 500 mg PO BID 12/31/23 01/15/24 History Empagliflozin [Jardiance] 10 mg PO DAILY 12/31/23 01/15/24 History Gabapentin [Neurontin] 100 mg PO BID 12/31/23 01/15/24 History Omeprazole 20 mg PO DAILY 12/31/23 01/15/24 History Potassium Chloride ER [K-Dur 10] 10 meq PO DAILY 12/31/23 01/15/24 History ALPRAZolam [Xanax] 0.25 mg PO DAILY PRN 01/15/24 01/15/24 History Levofloxacin [Levaquin] 500 mg PO DAILY 01/15/24 01/15/24 History Torsemide [Demadex] 40 mg PO DAILY 01/15/24 01/15/24 History predniSONE See Taper PO DIRECTED 01/15/24 01/15/24 History Allergies Allergy/AdvReac Type Severity Reaction Status Date / Time codeine Allergy Itching Verified 01/15/24 05:57 Physical Exam Vitals: Vital Signs Temp Pulse Resp BP Pulse Ox 01/15/24 10:25 60 22 126/59 90 L 01/15/24 08:41 62 20 118/82 92 L 01/15/24 08:15 66 01/15/24 08:03 65 01/15/24 07:22 98.0 F 59 L 20 138/53 90 L 01/15/24 06:46 59 L 01/15/24 06:41 55 L 01/15/24 05:57 97.9 F 87 20 133/81 90 L Intake and Output 01/14/24 01/15/24 01/15/24 22:59 06:59 14:59 Other: Weight 65.771 kg Results CBC & Chem 7: 01/15/24 06:31 01/15/24 06:31 Labs: Abnormal Lab Results - Last 24 Hours (Table) 01/15/24 01/15/24 01/15/24 Range/Units 06:31 06:31 06:31 WBC 18.8 H (3.8-10.6) k/uL MCV 73.6 L (80.0-100.0) fL MCH 22.4 L (25.0-35.0) pg MCHC 30.4 L (31.0-37.0) g/dL RDW 21.2 H (11.5-15.5) % Plt Count 129 L (150-450) k/uL Neutrophils # 15.4 H (1.3-7.7) k/uL Monocytes # 1.1 H (0-1.0) k/uL INR 1.2 H (<1.2) Sodium 133 L (137-145) mmol/L BUN 70 H (7-17) mg/dL Creatinine 1.27 H (0.52-1.04) mg/dL Total Bilirubin 1.4 H (0.2-1.3) mg/dL AST 67 H (14-36) U/L Troponin I (0.000-0.034) ng/mL 01/15/24 01/15/24 Range/Units 06:31 09:20 WBC (3.8-10.6) k/uL MCV (80.0-100.0) fL MCH (25.0-35.0) pg MCHC (31.0-37.0) g/dL RDW (11.5-15.5) % Plt Count (150-450) k/uL Neutrophils # (1.3-7.7) k/uL Monocytes # (0-1.0) k/uL INR (<1.2) Sodium (137-145) mmol/L BUN (7-17) mg/dL Creatinine (0.52-1.04) mg/dL Total Bilirubin (0.2-1.3) mg/dL AST (14-36) U/L Troponin I 0.068 H* 0.084 H* (0.000-0.034) ng/mL
[2024-01-15] MEDS: VIT A,C & E-LUTEIN-MINERALS 1 EACH TAB PO SCH (11:00)
[2024-01-15] MEDS: ALPRAZolam 0.25 MG TAB PO PRN (11:45)
[2024-01-15] MEDS ORDERED: IPRATROPIUM-ALBUTEROL 3 ML NEB INHALATION SCH (12:00)
--- NOTE | 2024-01-15 14:04 | P.CRDCN ---
History of Present Illness Consult date: 01/15/24 Reason for Consult (text): Chest pain, elevated troponins, CHF History of present illness: This is a 78-year-old female patient of Dr. Sally Flynn with past medical history of atrial fibrillation status post AV donte ablation, permanent pacemaker, coronary artery disease with prior angioplasty, severe COPD, chronic hypoxic respiratory failure on home O2, chronic diastolic heart failure, severe pulmonary hypertension. We have been asked to evaluate the patient for chest pain, elevated troponins and CHF. Patient states she came into the hospital due to chest pain and now she is complaining of anxiety. She states she is very anxious regarding something that is going on with her son. Patient had a recent hospitalization and discharged on 01/05/2024 at which time she was treated for COPD and CHF exacerbation. Over the past 1 to 2 days she developed intermittent chest pain in the center of her chest that occurs with while at rest and with exertion. The pain became worse last evening and did not go away and she called EMS and was brought into the hospital for further evaluation. Blood pressure 126/59, heart rate 60, pulse ox 90% on 4 L nasal cannula. Patient is seen today in the emergency center waiting for a bed on the cardiac stepdown unit. She is status post 1 dose of IV Lasix this morning. EKG: Ventricularly paced rhythm, underlying atrial fibrillation Chest x-ray: Cardiomegaly with perhaps mild central vascular congestion. Correlate for CHF exacerbation or fluid overload state. No significant change from prior. Laboratory studies: WBC 18.8, hemoglobin 11.5, platelet count 129. Sodium 133, potassium 4, BUN 70 creatinine 1.27. Troponin 0.068 and 0.084. proBNP 25,500. Home cardiac medications: Eliquis 5 mg twice daily, aspirin 81 mg daily, Lipitor 40 mg at bedtime, Jardiance 10 mg daily, Toprol XL 50 mg daily, potassium chloride 10 mill equivalents daily, torsemide 40 mg daily. Echocardiogram performed 04/10/2023 revealed EF of 60 to 65%, severe pulmonary hypertension, RVSP 74 mmHg, severe LA dilatation, moderate mitral regurgitation and calcified mitral valve. PPM wire in RV. Device: Biventricular PPM MedtronicSerena 07/18/2019. Lexiscan stress test performed 09/21/2020 revealed inconclusive EKG due to baseline EKG abnormalities. Abnormal nuclear scan showing fixed mid anterior wall defect secondary to soft tissue attenuation. Review Of Systems: At the time of my exam: CONSTITUTIONAL: Denies fever or chills. HEENT: Denies blurred vision, vision changes, or eye pain. Denies hemoptysis CARDIOVASCULAR: Denies chest pain. Denies orthopnea. Denies PND. Denies palpitations RESPIRATORY: Reports shortness of breath. GASTROINTESTINAL: Denies abdominal pain. Denies nausea or vomiting. HEMATOLOGIC: Denies bleeding disorders. GENITOURINARY: Denies any blood in urine. SKIN: Denies puritis. Denies rash. Physical examination: Gen: This is a 78-year-old female in no acute distress VS: reviewed HEENT: Head is atraumatic, normocephalic. Pupils equal, round. Sclerae is anicteric. NECK: Supple. No JVD. LUNGS: Diminished breath sounds bilaterally. No intercostal retractions. HEART: Regular rate and rhythm. No murmur. ABDOMEN: Soft No tenderness. EXTREMITIES: 2+ bilateral lower extremity edema. No calf tenderness. NEUROLOGICAL: Patient is awake, alert and oriented x3. Assessment: Mild troponin elevation, type II [place] secondary to CHF Acute on chronic diastolic heart failure Leukocytosis possibly due to outpatient prednisone use Atrial fibrillation status post AV donte ablation Sick sinus syndrome status post permanent pacemaker Coronary artery disease status post angioplasty Hypertension Hyperlipidemia Severe COPD with exacerbation Chronic hypoxic respiratory failure on home O2 Pulmonary hypertension Moderate mitral regurgitation Plan: Resume patient's home cardiac medications: Eliquis 5 mg twice daily, aspirin 81 mg daily, atorvastatin 40 mg daily, Farxiga 10 mg daily, Toprol XL 50 mg daily, potassium replacement. Continue patient on IV Lasix 40 mg every 12 hours Monitor ABAD, daily weights, electrolytes and renal function Obtain limited 2-D echocardiogram and Doppler study Further recommendations to follow based upon clinical course Thank you kindly for this consultation. Nurse practitioner note has been reviewed, I agree with documented findings and plan of care. Patient was seen and examined. Past Medical History Past Medical History: Atrial Fibrillation, Asthma, Coronary Artery Disease (CAD), Cancer, COPD, Eye Disorder, Hearing Disorder / Deafness, Myocardial Infarction ([place]), Osteoarthritis ([place]), Pneumonia, Thyroid Disorder Additional Past Medical History / Comment(s): Gout, hiatal hernia, Macular Degeneration, Skin Cancer, degenerative disc disease, osteoporosis. UTI 07/01/19. Last Myocardial Infarction Date:: 2011 History of Any Multi-Drug Resistant Organisms: None Reported Past Surgical History: Cardiac Ablation, Cholecystectomy, Heart Catheterization With Stent, Hysterectomy, Orthopedic Surgery, Pacemaker, Tonsillectomy Additional Past Surgical History / Comment(s): Right shoulder surgery, left wrist surgery. Thyroid Nodule removed, sylvia Cataracts, LOOP RECORDER-11/23/17; CHRIO ABLATION 03/08/18 WITH CARDIOVERSION Past Anesthesia/Blood Transfusion Reactions: No Reported Reaction Date of Last Stent Placement:: 2011 Type of Cardiac Device: Permanent Pacemaker Device Placement Date:: 07/2019 Past Psychological History: No Psychological Hx Reported Smoking Status: Former smoker Past Alcohol Use History: None Reported Past Drug Use History: None Reported - Past Family History Mother Family Medical History: Cancer, Congestive Heart Failure (CHF), Myocardial Infarction ([place]), Pneumonia, Pulmonary Embolus Additional Family Medical History / Comment(s): breast CA Father Family Medical History: CVA/TIA, Myocardial Infarction ([place]) Medications and Allergies Home Medications Medication Instructions Recorded Confirmed Type Vit C/E/Zn/Coppr/Lutein/Zeaxan 1 cap PO BID 03/02/15 01/15/24 History [Preservision Areds 2 Softgel] Atorvastatin [Lipitor] 40 mg PO HS #30 tab 03/04/15 01/15/24 Rx allopurinoL [Zyloprim] 100 mg PO BID 10/22/18 01/15/24 History Fluticasone/Umeclidin/Vilanter 1 puff INHALATION RT-DAILY 07/01/19 01/15/24 History [Treleroseline Ellipta 100-62.5-25] Aspirin [[place] Aspirin EC] 81 mg PO DAILY 08/09/19 01/15/24 History Cholecalciferol [Vitamin D3 (25 25 mcg PO DAILY 05/23/20 01/15/24 History Mcg = 1000 Iu)] Ipratropium-Albuterol Nebulize 3 ml INHALATION RT-QID 10/28/21 01/15/24 History [Duoneb 0.5 mg-3 mg/3 ml Soln] Apixaban [Eliquis] 5 mg PO BID 04/09/23 01/15/24 History Sodium Bicarbonate 325 mg PO BID 04/09/23 01/15/24 History calcitrioL 0.25 mcg PO MOWEFR 04/09/23 01/15/24 History Albuterol Sulfate [Ventolin HFA] 2 puff INHALATION RT-QID PRN 7 04/13/23 01/15/24 Rx Days #1 each Levothyroxine Sodium [Synthroid] 50 mcg PO DAILY 07/13/23 01/15/24 History Metoprolol Succinate (ER) [Toprol 50 mg PO DAILY #30 tab 07/18/23 01/15/24 Rx XL] Cranberry Fruit Extract [Cranberry] 500 mg PO BID 12/31/23 01/15/24 History Empagliflozin [Jardiance] 10 mg PO DAILY 12/31/23 01/15/24 History Gabapentin [Neurontin] 100 mg PO BID 12/31/23 01/15/24 History Omeprazole 20 mg PO DAILY 12/31/23 01/15/24 History Potassium Chloride ER [K-Dur 10] 10 meq PO DAILY 12/31/23 01/15/24 History ALPRAZolam [Xanax] 0.25 mg PO DAILY PRN 01/15/24 01/15/24 History Levofloxacin [Levaquin] 500 mg PO DAILY 01/15/24 01/15/24 History Torsemide [Demadex] 40 mg PO DAILY 01/15/24 01/15/24 History predniSONE See Taper PO DIRECTED 01/15/24 01/15/24 History Allergies Allergy/AdvReac Type Severity Reaction Status Date / Time codeine Allergy Itching Verified 01/15/24 05:57 Physical Exam Vitals: Vital Signs Temp Pulse Resp BP Pulse Ox 01/15/24 11:12 76 01/15/24 11:06 69 01/15/24 10:25 60 22 126/59 90 L 01/15/24 08:41 62 20 118/82 92 L 01/15/24 08:15 66 01/15/24 08:03 65 01/15/24 07:22 98.0 F 59 L 20 138/53 90 L 01/15/24 06:46 59 L 01/15/24 06:41 55 L 01/15/24 05:57 97.9 F 87 20 133/81 90 L Intake and Output 01/14/24 01/15/24 01/15/24 22:59 06:59 14:59 Other: Weight 65.771 kg Results 01/15/24 06:31 01/15/24 06:31 Cardiac Enzymes 01/15/24 01/15/24 01/15/24 Range/Units 06:31 06:31 09:20 AST 67 H (14-36) U/L Troponin I 0.068 H* 0.084 H* (0.000-0.034) ng/mL Coagulation 01/15/24 Range/Units 06:31 PT 12.4 (10.0-12.5) sec APTT 22.2 (22.0-30.0) sec CBC 01/15/24 Range/Units 06:31 WBC 18.8 H (3.8-10.6) k/uL RBC 5.15 (3.80-5.40) m/uL Hgb 11.5 (11.4-16.0) gm/dL Hct 37.9 (34.0-46.0) % Plt Count 129 L (150-450) k/uL Comprehensive Metabolic Panel 01/15/24 Range/Units 06:31 Sodium 133 L (137-145) mmol/L Potassium 4.0 (3.5-5.1) mmol/L Chloride 98 (98-107) mmol/L Carbon Dioxide 26 (22-30) mmol/L BUN 70 H (7-17) mg/dL Creatinine 1.27 H (0.52-1.04) mg/dL Glucose 98 (74-99) mg/dL Calcium 9.5 (8.4-10.2) mg/dL AST 67 H (14-36) U/L ALT 31 (4-34) U/L Alkaline Phosphatase 123 (38-126) U/L Total Protein 6.4 (6.3-8.2) g/dL Albumin 4.0 (3.5-5.0) g/dL Current Medications Generic Name Dose Route Start Last Admin Trade Name Freq PRN Reason Stop Dose Admin Acetaminophen 650 mg 01/15/24 07:48 Acetaminophen Tab 325 Mg Tab PO Q6HR PRN Mild Pain or Fever > 100.5 Hydrocodone Bitart/Acetaminophen 1 each 01/15/24 07:48 01/15/24 08:47 Hydrocodone/Apap 5-325mg 1 Each Tab PO 1 each Q4HR PRN Administration Moderate Pain (Scale 4 to 6) Albuterol/Ipratropium 3 ml 01/15/24 07:50 Ipratropium-Albuterol 3 Ml Neb INHALATION RT-Q2H PRN Shortness Of Breath Or Wheezing Albuterol/Ipratropium 3 ml 01/15/24 08:00 01/15/24 11:04 Ipratropium-Albuterol 3 Ml Neb INHALATION 3 ml RT-QID MILAN Administration Allopurinol 100 mg 01/15/24 09:00 01/15/24 10:28 Allopurinol 100 Mg Tab PO 100 mg BID MILAN Administration Alprazolam 0.25 mg 01/15/24 09:00 Alprazolam 0.25 Mg Tab PO DAILY PRN Anxiety Apixaban 5 mg 01/15/24 09:00 01/15/24 10:28 Apixaban 5 Mg Tab PO 5 mg BID MILAN Administration Protocol Aspirin 81 mg 01/15/24 09:00 01/15/24 10:17 Aspirin 81 Mg PO Not Given DAILY MILAN Atorvastatin Calcium 40 mg 01/15/24 21:00 Atorvastatin 40 Mg Tab PO HS [facility] Budesonide/Formoterol Fumarate 2 puff 01/16/24 08:00 Symbicort 80-4.5 Mcg Inhaler INHALATION RT-BID [facility] Calcitriol 0.25 mcg 01/15/24 09:00 01/15/24 10:28 Calcitriol 0.25 Mcg Cap PO 0.25 mcg MOWEFR [facility] Administration Cholecalciferol 25 mcg 01/15/24 09:00 01/15/24 10:28 Cholecalciferol 25 Mcg (1000 Iu) Tablet PO 25 mcg DAILY MILAN Administration Dapagliflozin 5 mg 01/15/24 09:00 01/15/24 10:28 Dapagliflozin Propanediol 5 Mg Tablet PO 5 mg DAILY MILAN Administration Furosemide 40 mg 01/15/24 21:00 Furosemide 10 Mg/Ml 4 Ml Vial IV Q12HR [facility] Gabapentin 100 mg 01/15/24 09:00 01/15/24 10:34 Gabapentin 100 Mg Cap PO 100 mg BID MILAN Administration Levothyroxine Sodium 50 mcg 01/15/24 09:00 01/15/24 10:27 Levothyroxine 50 Mcg Tab PO 50 mcg DAILY@0630 MILAN Administration Metoprolol Succinate 50 mg 01/15/24 09:00 01/15/24 10:28 Metoprolol Succinate (Er) 50 Mg Tab.Er.24h PO 50 mg DAILY [facility] Administration Multivitamins/Minerals 1 each 01/15/24 09:00 01/15/24 11:00 Vit A,C & I-Zrawpr-Ngnpalgj 1 Each Tab PO 1 each BID MILAN Administration Naloxone HCl 0.2 mg 01/15/24 07:48 Naloxone 0.4 Mg/Ml 1 Ml Vial IV Q2M PRN Opioid Reversal Ondansetron HCl 4 mg 01/15/24 07:48 Ondansetron 4 Mg/2 Ml Vial IVP Q8HR PRN Nausea And Vomiting Pantoprazole Sodium 40 mg 01/15/24 09:00 01/15/24 08:46 Pantoprazole 40 Mg/10 Ml Vial IV 40 mg DAILY MILAN Administration Potassium Chloride 10 meq 01/15/24 09:00 01/15/24 10:29 Potassium Chloride Er 10 Meq Tab.Er.Prt PO 10 meq DAILY MILAN Administration Sodium Bicarbonate 325 mg 01/15/24 09:00 01/15/24 10:28 Sodium Bicarbonate Tab 650 Mg Tab PO 325 mg BID MILAN Administration Intake and Output 01/14/24 01/15/24 01/15/24 22:59 06:59 14:59 Other: Weight 65.771 kg 01/15/24 06:31 01/15/24 06:31
[2024-01-15] MEDS ORDERED: HEPARIN SODIUM 1,000 UN/ML (10ML VL) IV PRN (14:28)
[2024-01-15 15:43] LABS: Anisocytosis Moderate; Basophils # (A) 0.1 k/uL (0-0.2); Basophils % (A) 0 %; Eosinophils # (A) 0.1 k/uL (0-0.7); Eosinophils % (A) 0 %; HCT 37.6 % (34.0-46.0); HGB 11.2 gm/dL (11.4-16.0); Hypochromasia Marked; Lymphocytes # (A) 1.7 k/uL (1.0-4.8); Lymphocytes % (A) 10 %; MCH 22.1 pg (25.0-35.0); MCHC 29.8 g/dL (31.0-37.0); MCV 74.3 fL (80.0-100.0); Mean Platelet Volume 6.7; Microcytosis Moderate; Monocytes # (A) 1.1 k/uL (0-1.0); Monocytes % (A) 6 %; Neutrophils % (A) 82 %; Platelet Count 108 k/uL (150-450); RBC 5.06 m/uL (3.80-5.40); RDW 21.6 % (11.5-15.5); WBC 17.1 k/uL (3.8-10.6)
[2024-01-15 15:55] LABS: INR 1.2 (<1.2); Partial Thromboplastin Time 23.8 sec (22.0-30.0); Prothrombin Time 12.9 sec (10.0-12.5)
[2024-01-15] MEDS: HEPARIN SODIUM 1,000 UN/ML (10ML VL) IV ONE (16:06)
[2024-01-15] MEDS: HEPARIN SOD,PORK IN 0.45% NACL 25,000 UNIT in 0.45% NACL 1 250ML.BAG IV SCH (16:08)
[2024-01-15] MEDS: FUROSEMIDE 10 MG/ML 4 ML VIAL IV SCH (20:34)
[2024-01-15] MEDS: ATORVASTATIN 40 MG TAB PO SCH (20:34)
[2024-01-16 03:38] LABS: Appearance,Urine Clear (Clear); Bilirubin,Urine Negative (Negative); Blood,Urine Negative (Negative); Color,Urine Colorless; Glucose,Urine (UA) Negative (Negative); Ketones,Urine Negative (Negative); Leukocyte Esterase,Urine Negative (Negative); Nitrite,Urine Negative (Negative); Protein,Urine Trace (Negative); Specific Gravity,Urine 1.011 (1.001-1.035); Urobilinogen,Urine <2.0 mg/dL (<2.0)
[2024-01-16 07:40] LABS: Anisocytosis Moderate; Basophils # (A) 0.1 k/uL (0-0.2); Basophils % (A) 0 %; Eosinophils # (A) 0.1 k/uL (0-0.7); Eosinophils % (A) 1 %; HGB 11.1 gm/dL (11.4-16.0); Hypochromasia Marked; Lymphocytes # (A) 1.9 k/uL (1.0-4.8); Lymphocytes % (A) 10 %; MCH 22.2 pg (25.0-35.0); MCV 73.9 fL (80.0-100.0); Mean Platelet Volume 6.9; Microcytosis Marked; Monocytes # (A) 0.8 k/uL (0-1.0); Monocytes % (A) 4 %; Neutrophils # (A) 15.6 k/uL (1.3-7.7); Neutrophils % (A) 83 %; Platelet Count 101 k/uL (150-450); RBC 5.01 m/uL (3.80-5.40); RDW 21.7 % (11.5-15.5); WBC 18.9 k/uL (3.8-10.6)
[2024-01-16 07:48] LABS: INR 1.2 (<1.2); Prothrombin Time 12.5 sec (10.0-12.5)
[2024-01-16] MEDS: SYMBICORT 80-4.5 MCG INHALER INHALATION SCH (07:53)
[2024-01-16 08:03] LABS: African American GFR (CKD) 39 (>60 ml/min/1.73 sqM); Anion Gap 8 mmol/L; Blood Urea Nitrogen 69 mg/dL (7-17); Calcium 9.3 mg/dL (8.4-10.2); Carbon Dioxide 27 mmol/L (22-30); Chloride 98 mmol/L (98-107); Glucose 100 mg/dL (74-99); Magnesium 2.1 mg/dL (1.6-2.3); Non-African American GFR(CKD) 34 (>60 ml/min/1.73 sqM); Potassium 3.9 mmol/L (3.5-5.1); Sodium 133 mmol/L (137-145)
[2024-01-16] MEDS: DAPAGLIFLOZIN PROPANEDIOL 10 MG TABLET PO SCH (08:44)
--- NOTE | 2024-01-16 10:17 | P.PN ---
Subjective Progress Note Date: 01/16/24 Chest pain, elevated troponins, CHF History of present illness: This is a 78-year-old female patient of Dr. Sally Flynn with past medical history of atrial fibrillation status post AV donte ablation, permanent pacemaker, coronary artery disease with prior angioplasty, severe COPD, chronic hypoxic respiratory failure on home O2, chronic diastolic heart failure, severe pulmonary hypertension. We have been asked to evaluate the patient for chest pain, elevated troponins and CHF. Patient states she came into the hospital due to chest pain and now she is complaining of anxiety. She states she is very anxious regarding something that is going on with her son. Patient had a recent hospitalization and discharged on 01/05/2024 at which time she was treated for COPD and CHF exacerbation. Over the past 1 to 2 days she developed intermittent chest pain in the center of her chest that occurs with while at rest and with exertion. The pain became worse last evening and did not go away and she called EMS and was brought into the hospital for further evaluation. Blood pressure 126/59, heart rate 60, pulse ox 90% on 4 L nasal cannula. Patient is seen today in the emergency center waiting for a bed on the cardiac stepdown unit. She is status post 1 dose of IV Lasix this morning. EKG: Ventricularly paced rhythm, underlying atrial fibrillation Chest x-ray: Cardiomegaly with perhaps mild central vascular congestion. Correlate for CHF exacerbation or fluid overload state. No significant change from prior. Laboratory studies: WBC 18.8, hemoglobin 11.5, platelet count 129. Sodium 133, potassium 4, BUN 70 creatinine 1.27. Troponin 0.068 and 0.084. proBNP 25,500. Home cardiac medications: Eliquis 5 mg twice daily, aspirin 81 mg daily, Lipitor 40 mg at bedtime, Jardiance 10 mg daily, Toprol XL 50 mg daily, potassium chloride 10 mill equivalents daily, torsemide 40 mg daily. Echocardiogram performed 04/10/2023 revealed EF of 60 to 65%, severe pulmonary hypertension, RVSP 74 mmHg, severe LA dilatation, moderate mitral regurgitation and calcified mitral valve. PPM wire in RV. Device: Biventricular PPM MedtronicSerena 07/18/2019. Lexiscan stress test performed 09/21/2020 revealed inconclusive EKG due to baseline EKG abnormalities. Abnormal nuclear scan showing fixed mid anterior wall defect secondary to soft tissue attenuation. January 16, 2024 Patient seen and examined at bedside this a.m. Patient denies having any active chest pain chest pressure or shortness of breath at this time. Earlier morning she was in respiratory distress which got better after patient got relaxed and was supplemental oxygen. Currently she is on 4 L to 5 L of oxygen. Saturating 92%, heart rates around 60 beats minute, left ventricularly paced rhythm, underlying is atrial fibrillation. BP 138/57, significant swelling in bilateral lower extremity Physical examination: Gen: This is a 78-year-old female in no acute distress VS: reviewed HEENT: Head is atraumatic, normocephalic. Pupils equal, round. Sclerae is anicteric. NECK: Supple. No JVD. LUNGS: Diminished breath sounds bilaterally. No intercostal retractions. HEART: Regular rate and rhythm. No murmur. ABDOMEN: Soft No tenderness. EXTREMITIES: 2+ bilateral lower extremity edema up to mid thigh. No calf t enderness. NEUROLOGICAL: Patient is awake, alert and oriented x3. Assessment: Type II NSTEMI Acute on chronic diastolic heart failure Leukocytosis possibly due to outpatient prednisone use Microcytic anemia, thrombocytopenia Chronic atrial fibrillation status post AV donte ablation. Currently in V paced rhythm, pacemaker dependent, heart rate 60 bpm. Sick sinus syndrome status post permanent pacemaker Coronary artery disease status post angioplasty RCA Hypertension Hyperlipidemia Severe COPD with exacerbation Chronic hypoxic respiratory failure on home O2 Severe pulmonary hypertension Moderate mitral regurgitation Plan: Continue IV heparin for 48 hours for NSTEMI treatment. aspirin 81 mg daily, atorvastatin 40 mg daily, Farxiga 10 mg daily, Toprol XL 50 mg daily, potassium replacement. Continue patient on IV Lasix 40 mg every 12 hours. Add Aldactone 12.5 mg daily. Monitor renal function Patient needs good blood pressure control. Will add amlodipine 2.5 mg daily. If renal function is stable, consider adding ARB B12 folate iron supplementation Obtain limited 2-D echocardiogram and Doppler study At this time patient is not interested in getting cardiac catheterization. I would recommend medical management for her severe pulmonary hypertension and NSTEMI. Will continue 48 hours of IV heparin and would eventually discharged her on dual antiplatelet therapy with outpatient follow-up. For her severe pulmonary hypertension she needs to be on continuous oxygen with a goal SpO2 of more than 92. Objective - Vital Signs Vital signs: Vital Signs Temp 98.6 F 01/16/24 00:00 Pulse 60 01/16/24 10:07 Resp 20 01/16/24 10:07 BP 111/58 01/16/24 10:07 Pulse Ox 92 L 01/16/24 10:07 FiO2 Intake & Output 01/15/24 01/16/24 01/16/24 18:59 06:59 18:59 Intake Total 573.668 45.71 Output Total 900 Balance -326.332 45.71 Weight 65.771 kg Intake: Intake, IV Titration 73.668 45.71 Amount Heparin Sod,Pork in 0.45% 73.668 45.71 NaCl 25,000 unit In 0.45 % NaCl 1 250ml.bag @ 12 UNITS/KG/HR 7.893 mls/hr IV .[facility]H [facility] Rx#: [id number] Oral 500 Output: Urine 900 Other: Voiding Method Toilet - Labs CBC & Chem 7: 01/16/24 07:28 01/16/24 07:28 Labs: Abnormal Lab Results - Last 24 Hours (Table) 01/15/24 01/15/24 01/15/24 Range/Units 09:20 13:04 14:57 WBC 17.1 H (3.8-10.6) k/uL Hgb 11.2 L (11.4-16.0) gm/dL MCV 74.3 L (80.0-100.0) fL MCH 22.1 L (25.0-35.0) pg MCHC 29.8 L (31.0-37.0) g/dL RDW 21.6 H (11.5-15.5) % Plt Count 108 L (150-450) k/uL Neutrophils # 14.0 H (1.3-7.7) k/uL Monocytes # 1.1 H (0-1.0) k/uL PT (10.0-12.5) sec INR (<1.2) APTT (22.0-30.0) sec Sodium (137-145) mmol/L BUN (7-17) mg/dL Creatinine (0.52-1.04) mg/dL Glucose (74-99) mg/dL Troponin I 0.084 H* 0.096 H* (0.000-0.034) ng/mL Urine Protein (Negative) 01/15/24 01/15/24 01/16/24 Range/Units 14:57 23:11 02:33 WBC (3.8-10.6) k/uL Hgb (11.4-16.0) gm/dL MCV (80.0-100.0) fL MCH (25.0-35.0) pg MCHC (31.0-37.0) g/dL RDW (11.5-15.5) % Plt Count (150-450) k/uL Neutrophils # (1.3-7.7) k/uL Monocytes # (0-1.0) k/uL PT 12.9 H (10.0-12.5) sec INR 1.2 H (<1.2) APTT 81.9 H (22.0-30.0) sec Sodium (137-145) mmol/L BUN (7-17) mg/dL Creatinine (0.52-1.04) mg/dL Glucose (74-99) mg/dL Troponin I (0.000-0.034) ng/mL Urine Protein Trace H (Negative) 01/16/24 01/16/24 01/16/24 Range/Units 07:28 07:28 07:28 WBC 18.9 H (3.8-10.6) k/uL Hgb 11.1 L (11.4-16.0) gm/dL MCV 73.9 L (80.0-100.0) fL MCH 22.2 L (25.0-35.0) pg MCHC 30.0 L (31.0-37.0) g/dL RDW 21.7 H (11.5-15.5) % Plt Count 101 L (150-450) k/uL Neutrophils # 15.6 H (1.3-7.7) k/uL Monocytes # (0-1.0) k/uL PT (10.0-12.5) sec INR 1.2 H (<1.2) APTT (22.0-30.0) sec Sodium 133 L (137-145) mmol/L BUN 69 H (7-17) mg/dL Creatinine 1.49 H (0.52-1.04) mg/dL Glucose 100 H (74-99) mg/dL Troponin I (0.000-0.034) ng/mL Urine Protein (Negative) 01/16/24 Range/Units 07:28 WBC (3.8-10.6) k/uL Hgb (11.4-16.0) gm/dL MCV (80.0-100.0) fL MCH (25.0-35.0) pg MCHC (31.0-37.0) g/dL RDW (11.5-15.5) % Plt Count (150-450) k/uL Neutrophils # (1.3-7.7) k/uL Monocytes # (0-1.0) k/uL PT (10.0-12.5) sec INR (<1.2) APTT 62.7 H (22.0-30.0) sec Sodium (137-145) mmol/L BUN (7-17) mg/dL Creatinine (0.52-1.04) mg/dL Glucose (74-99) mg/dL Troponin I (0.000-0.034) ng/mL Urine Protein (Negative)
[2024-01-16] MEDS: LIDOCAINE 4% PATCH TOPICAL SCH (10:38)
[2024-01-16] MEDS: SPIRONOLACTONE 25 MG TAB PO SCH (11:24)
[2024-01-16] MEDS: amLODIPine 2.5 MG TAB PO SCH (11:24)
[2024-01-16] MEDS: CYANOCOBALAMIN 500 MCG TAB PO SCH (11:25)
[2024-01-16] MEDS: FERROUS SULFATE 325 MG TAB PO SCH (11:30)
--- NOTE | 2024-01-16 13:12 | P.PN ---
Subjective Progress Note Date: 01/16/24 78-year-old female came in with complaints of chest pain on the left side of the chest radiating to the entire precordium on the left side. Patient does have history of COPD and also has chronic diastolic dysfunction patient was complaining of some orthopnea chest x-ray is consistent with pulmonary edema although patient does not have any significant pedal edema. Patient usually takes 40 mg of torsemide at home patient had a recent hospitalization at the time she was treated for COPD exacerbation, hyponatremia patient was given Samsca presents with serum sodium is 133 patient has serum creatinine of 1.27 does have chronic kidney disease with baseline creatinine around 1.3-1.5. This may be secondary to cardiorenal syndrome patient also has severe pulmonary hypertension. Patient had history of coronary disease with stent in 2011 troponins are slightly elevated to 0.068 and 0.084. Patient's BNP is 25,000 and her previous BNP was 11,200. Patient is presently on 4 L of oxygen patient does not use oxygen at home unsure how many liters she uses at home 01/16/2024 To be seen in follow-up she is currently in the ER pending a bed on the medical floor. No further reports of chest pain at this time and she does report significant improvement in her shortness of breath. Pending repeat echo cardiogram. Patient continues on IV Lasix 40 mg every 12 as well as IV heparin. Review of Systems Constitutional: Denied any fatigue denied any fever. Cardio vascular: denied any chest pain, palpitations Gastrointestinal: denied any nausea, vomiting, diarrhea Pulmonary: Denied any shortness of breath cough Neurologic denied any new focal deficits All inpatient medications were reviewed and appropriate changes in these medications as dictated in the interval history and assessment and plan. PHYSICAL EXAMINATION: GENERAL: The patient is alert and oriented x3, not in any acute distress. Well developed, well nourished. HEENT: Pupils are round and equally reacting to light. EOMI. No scleral icterus. No conjunctival pallor. Normocephalic, atraumatic. No pharyngeal erythema. No thyromegaly. CARDIOVASCULAR: S1 and S2 present. No murmurs, rubs, or gallops. PULMONARY: Slightly diminished air entry to bilateral lung moreno no wheezing or crackles were appreciated ABDOMEN: Soft, nontender, nondistended, normoactive bowel sounds. No palpable organomegaly. MUSCULOSKELETAL: No joint swelling or deformity. EXTREMITIES: No cyanosis, clubbing, or pedal edema. NEUROLOGICAL: Gross neurological examination did not reveal any focal deficits. SKIN: No rashes. Assessment and plan Acute on chronic hypoxic respiratory failure: Secondary to CHF exacerbation will continue on IV lasix 40 mg Q12 hr with strict intake and output monitoring. -Elevated troponins possibility of NSTEMI most probably type II from CHF and renal dysfunction although cannot rule out type I non-ST elevation [place], car diology was consulted. On IV heparin -chronic kidney disease stage II-IIIb -Chronic hypercapnic respiratory failure secondary to COPD exacerbation patient does not appear to be in COPD exacerbation at this time -Congestive failure chronic diastolic function with acute exacerbation -Severe pulmonary hypertension and cor pulmonale -Hyperlipidemia -Hypothyroidism DVT prophylaxis: On IV heparin Full Code The impression and plan of care has been dictated by Praveena Barry, Nurse Practitioner as directed. Dr. Karrie MD I have performed a history and physical examination and medical decision making of this patient, discussed the same with the dictator, and agree with the dictators assessment and plan as written, documented as a scribe. Based on total visit time, I have performed more than 50% of this visit. Objective - Vital Signs Vital signs: Vital Signs Temp 98.6 F 01/16/24 00:00 Pulse 74 01/16/24 08:03 Resp 18 01/16/24 07:36 BP 118/94 01/16/24 07:36 Pulse Ox 94 L 01/16/24 04:00 FiO2 Intake & Output 01/15/24 01/16/24 01/16/24 18:59 06:59 18:59 Intake Total 573.668 45.71 Output Total 900 Balance -326.332 45.71 Weight 65.771 kg Intake: Intake, IV Titration 73.668 45.71 Amount Heparin Sod,Pork in 0.45% 73.668 45.71 NaCl 25,000 unit In 0.45 % NaCl 1 250ml.bag @ 12 UNITS/KG/HR 7.893 mls/hr IV .Q24H [facility] Rx#: [id number] Oral 500 Output: Urine 900 Other: Voiding Method Toilet - Labs CBC & Chem 7: 01/16/24 07:28 01/16/24 07:28 Labs: Abnormal Lab Results - Last 24 Hours (Table) 01/15/24 01/15/24 01/15/24 Range/Units 09:20 13:04 14:57 WBC 17.1 H (3.8-10.6) k/uL Hgb 11.2 L (11.4-16.0) gm/dL MCV 74.3 L (80.0-100.0) fL MCH 22.1 L (25.0-35.0) pg MCHC 29.8 L (31.0-37.0) g/dL RDW 21.6 H (11.5-15.5) % Plt Count 108 L (150-450) k/uL Neutrophils # 14.0 H (1.3-7.7) k/uL Monocytes # 1.1 H (0-1.0) k/uL PT (10.0-12.5) sec INR (<1.2) APTT (22.0-30.0) sec Sodium (137-145) mmol/L BUN (7-17) mg/dL Creatinine (0.52-1.04) mg/dL Glucose (74-99) mg/dL Troponin I 0.084 H* 0.096 H* (0.000-0.034) ng/mL Urine Protein (Negative) 01/15/24 01/15/24 01/16/24 Range/Units 14:57 23:11 02:33 WBC (3.8-10.6) k/uL Hgb (11.4-16.0) gm/dL MCV (80.0-100.0) fL MCH (25.0-35.0) pg MCHC (31.0-37.0) g/dL RDW (11.5-15.5) % Plt Count (150-450) k/uL Neutrophils # (1.3-7.7) k/uL Monocytes # (0-1.0) k/uL PT 12.9 H (10.0-12.5) sec INR 1.2 H (<1.2) APTT 81.9 H (22.0-30.0) sec Sodium (137-145) mmol/L BUN (7-17) mg/dL Creatinine (0.52-1.04) mg/dL Glucose (74-99) mg/dL Troponin I (0.000-0.034) ng/mL Urine Protein Trace H (Negative) 01/16/24 01/16/24 01/16/24 Range/Units 07:28 07:28 07:28 WBC 18.9 H (3.8-10.6) k/uL Hgb 11.1 L (11.4-16.0) gm/dL MCV 73.9 L (80.0-100.0) fL MCH 22.2 L (25.0-35.0) pg MCHC 30.0 L (31.0-37.0) g/dL RDW 21.7 H (11.5-15.5) % Plt Count 101 L (150-450) k/uL Neutrophils # 15.6 H (1.3-7.7) k/uL Monocytes # (0-1.0) k/uL PT (10.0-12.5) sec INR 1.2 H (<1.2) APTT (22.0-30.0) sec Sodium 133 L (137-145) mmol/L BUN 69 H (7-17) mg/dL Creatinine 1.49 H (0.52-1.04) mg/dL Glucose 100 H (74-99) mg/dL Troponin I (0.000-0.034) ng/mL Urine Protein (Negative) 01/16/24 Range/Units 07:28 WBC (3.8-10.6) k/uL Hgb (11.4-16.0) gm/dL MCV (80.0-100.0) fL MCH (25.0-35.0) pg MCHC (31.0-37.0) g/dL RDW (11.5-15.5) % Plt Count (150-450) k/uL Neutrophils # (1.3-7.7) k/uL Monocytes # (0-1.0) k/uL PT (10.0-12.5) sec INR (<1.2) APTT 62.7 H (22.0-30.0) sec Sodium (137-145) mmol/L BUN (7-17) mg/dL Creatinine (0.52-1.04) mg/dL Glucose (74-99) mg/dL Troponin I (0.000-0.034) ng/mL Urine Protein (Negative) Assessment and Plan Time with Patient: Less than 30
[2024-01-16] MEDS: IPRATROPIUM-ALBUTEROL 3 ML NEB INHALATION PRN (16:23)
[2024-01-17 09:34] LABS: African American GFR (CKD) 44 (>60 ml/min/1.73 sqM); Anion Gap 11 mmol/L; Blood Urea Nitrogen 67 mg/dL (7-17); Calcium 10.1 mg/dL (8.4-10.2); Carbon Dioxide 24 mmol/L (22-30); Chloride 96 mmol/L (98-107); Glucose 110 mg/dL (74-99); Non-African American GFR(CKD) 38 (>60 ml/min/1.73 sqM); Potassium 4.3 mmol/L (3.5-5.1); Sodium 131 mmol/L (137-145)
[2024-01-17] MEDS ORDERED: NITROGLYCERIN SL TABS 0.4 MG TAB SUBLINGUAL PRN (10:41)
--- NOTE | 2024-01-17 12:14 | P.PN ---
Subjective Progress Note Date: 01/17/24 78-year-old female came in with complaints of chest pain on the left side of the chest radiating to the entire precordium on the left side. Patient does have history of COPD and also has chronic diastolic dysfunction patient was complaining of some orthopnea chest x-ray is consistent with pulmonary edema although patient does not have any significant pedal edema. Patient usually takes 40 mg of torsemide at home patient had a recent hospitalization at the time she was treated for COPD exacerbation, hyponatremia patient was given Samsca presents with serum sodium is 133 patient has serum creatinine of 1.27 does have chronic kidney disease with baseline creatinine around 1.3-1.5. This may be secondary to cardiorenal syndrome patient also has severe pulmonary hypertension. Patient had history of coronary disease with stent in 2011 troponins are slightly elevated to 0.068 and 0.084. Patient's BNP is 25,000 and her previous BNP was 11,200. Patient is presently on 4 L of oxygen patient does not use oxygen at home unsure how many liters she uses at home 01/16/2024 To be seen in follow-up she is currently in the ER pending a bed on the medical floor. No further reports of chest pain at this time and she does report significant improvement in her shortness of breath. Pending repeat echo cardiogram. Patient continues on IV Lasix 40 mg every 12 as well as IV heparin. 01/17/2024 Patient is evaluated today on the cardiac unit resting in bed. Continues to report intermittent episodes of chest tightness which the patient feels similar to the time that she had to get a cardiac stent placed most recently. Patient states that she discussed with her family going for a cardiac catheterization and would like to pursue this at this time. She continues on IV heparin. Echocardiogram pending. She continues on diuretic therapy has been transition to oral Bumex. Review of Systems Constitutional: Denied any fatigue denied any fever. Cardio vascular: denied any chest pain, palpitations Gastrointestinal: denied any nausea, vomiting, diarrhea Pulmonary: Denied any shortness of breath cough Neurologic denied any new focal deficits All inpatient medications were reviewed and appropriate changes in these medications as dictated in the interval history and assessment and plan. PHYSICAL EXAMINATION: GENERAL: The patient is alert and oriented x3, not in any acute distress. Well developed, well nourished. HEENT: Pupils are round and equally reacting to light. EOMI. No scleral icterus. No conjunctival pallor. Normocephalic, atraumatic. No pharyngeal erythema. No thyromegaly. CARDIOVASCULAR: S1 and S2 present. No murmurs, rubs, or gallops. PULMONARY: Slightly diminished air entry to bilateral lung moreno no wheezing or crackles were appreciated ABDOMEN: Soft, nontender, nondistended, normoactive bowel sounds. No palpable organomegaly. MUSCULOSKELETAL: No joint swelling or deformity. EXTREMITIES: No cyanosis, clubbing, or pedal edema. NEUROLOGICAL: Gross neurological examination did not reveal any focal deficits. SKIN: No rashes. Assessment and plan Acute on chronic hypoxic respiratory failure: Secondary to CHF exacerbation transition to oral Bumex -Elevated troponins possibility of NSTEMI most probably type II from CHF and renal dysfunction although cannot rule out type I non-ST elevation [place], cardiology was consulted. On IV heparin patient would like to pursue cardiac catheterization -chronic kidney disease stage II-IIIb -Chronic hypercapnic respiratory failure secondary to COPD exacerbation patient does not appear to be in COPD exacerbation at this time -Congestive failure chronic diastolic function with acute exacerbation -Severe pulmonary hypertension and cor pulmonale -Hyperlipidemia -Hypothyroidism DVT prophylaxis: On IV heparin Full Code The impression and plan of care has been dictated by Praveena Barry, Nurse Practitioner as directed. Dr. Karrie MD I have performed a history and physical examination and medical decision making of this patient, discussed the same with the dictator, and agree with the dictators assessment and plan as written, documented as a scribe. Based on total visit time, I have performed more than 50% of this visit. Objective - Vital Signs Vital signs: Vital Signs Temp 97.8 F 01/17/24 08:15 Pulse 60 01/17/24 11:59 Resp 18 01/17/24 08:15 BP 113/56 01/17/24 08:15 Pulse Ox 92 L 01/17/24 08:15 FiO2 Intake & Output 01/16/24 01/17/24 01/17/24 18:59 06:59 18:59 Intake Total 225.71 94.709 180 Output Total 900 Balance -674.29 94.709 180 Weight 71.2 kg Intake: Intake, IV Titration 45.71 94.709 Amount Heparin Sod,Pork in 0.45% 45.71 94.709 NaCl 25,000 unit In 0.45 % NaCl 1 250ml.bag @ 12 UNITS/KG/HR 7.893 mls/hr IV .Q24H [facility] Rx#: [id number] Oral 180 180 Output: Urine 900 Post Void Residual 0 Other: Voiding Method Toilet Toilet Toilet # Voids 2 1 - Labs CBC & Chem 7: 01/16/24 07:28 01/17/24 07:14 Labs: Abnormal Lab Results - Last 24 Hours (Table) 01/17/24 01/17/24 Range/Units 07:14 07:14 APTT 55.6 H (22.0-30.0) sec Sodium 131 L (137-145) mmol/L Chloride 96 L (98-107) mmol/L BUN 67 H (7-17) mg/dL Creatinine 1.35 H (0.52-1.04) mg/dL Glucose 110 H (74-99) mg/dL Assessment and Plan Time with Patient: Less than 30
--- NOTE | 2024-01-17 12:28 | P.PN ---
Subjective Progress Note Date: 01/17/24 Chest pain, elevated troponins, CHF History of present illness: This is a 78-year-old female patient of Dr. Sally Flynn with past medical history of atrial fibrillation status post AV donte ablation, permanent pacemaker, coronary artery disease with prior angioplasty, severe COPD, chronic hypoxic respiratory failure on home O2, chronic diastolic heart failure, severe pulmonary hypertension. We have been asked to evaluate the patient for chest pain, elevated troponins and CHF. Patient states she came into the hospital due to chest pain and now she is complaining of anxiety. She states she is very anxious regarding something that is going on with her son. Patient had a recent hospitalization and discharged on 01/05/2024 at which time she was treated for COPD and CHF exacerbation. Over the past 1 to 2 days she developed intermittent chest pain in the center of her chest that occurs with while at rest and with exertion. The pain became worse last evening and did not go away and she called EMS and was brought into the hospital for further evaluation. Blood pressure 126/59, heart rate 60, pulse ox 90% on 4 L nasal cannula. Patient is seen today in the emergency center waiting for a bed on the cardiac stepdown unit. She is status post 1 dose of IV Lasix this morning. EKG: Ventricularly paced rhythm, underlying atrial fibrillation Chest x-ray: Cardiomegaly with perhaps mild central vascular congestion. Correlate for CHF exacerbation or fluid overload state. No significant change from prior. Laboratory studies: WBC 18.8, hemoglobin 11.5, platelet count 129. Sodium 133, potassium 4, BUN 70 creatinine 1.27. Troponin 0.068 and 0.084. proBNP 25,500. Home cardiac medications: Eliquis 5 mg twice daily, aspirin 81 mg daily, Lipitor 40 mg at bedtime, Jardiance 10 mg daily, Toprol XL 50 mg daily, potassium chloride 10 mill equivalents daily, torsemide 40 mg daily. Echocardiogram performed 04/10/2023 revealed EF of 60 to 65%, severe pulmonary hypertension, RVSP 74 mmHg, severe LA dilatation, moderate mitral regurgitation and calcified mitral valve. PPM wire in RV. Device: Biventricular PPM MedtronicSerena 07/18/2019. Lexiscan stress test performed 09/21/2020 revealed inconclusive EKG due to baseline EKG abnormalities. Abnormal nuclear scan showing fixed mid anterior wall defect secondary to soft tissue attenuation. January 16, 2024 Patient seen and examined at bedside this a.m. Patient denies having any active chest pain chest pressure or shortness of breath at this time. Earlier morning she was in respiratory distress which got better after patient got relaxed and was supplemental oxygen. Currently she is on 4 L to 5 L of oxygen. Saturating 92%, heart rates around 60 beats minute, left ventricularly paced rhythm, underlying is atrial fibrillation. BP 138/57, significant swelling in bilateral lower extremity 01/16 Patient is seen today in follow-up. Discussed in detail doing cardiac catheterization. Patient is having some shortness of breath and wheezing at this time. Doubt the patient will be able to lay flat for cardiac ca theterization. She is currently on a heparin drip which will be continued. Echocardiogram is pending. Blood pressure 113/56, heart rate 63, pulse ox 92% on 4 L nasal cannula. Repeat blood work reveals BUN 67 creatinine 1.35, sodium 131, potassium 4.3. Physical examination: Gen: This is a 78-year-old female in no acute distress VS: reviewed HEENT: Head is atraumatic, normocephalic. Pupils equal, round. Sclerae is anicteric. NECK: Supple. No JVD. LUNGS: Diminished breath sounds bilaterally. No intercostal retractions. HEART: Regular rate and rhythm. No murmur. ABDOMEN: Soft No tenderness. EXTREMITIES: 2+ bilateral lower extremity edema up to mid thigh. No calf tenderness. NEUROLOGICAL: Patient is awake, alert and oriented x3. Assessment: Type II NSTEMI Acute on chronic diastolic heart failure Leukocytosis possibly due to outpatient prednisone use Microcytic anemia, thrombocytopenia Chronic atrial fibrillation status post AV donte ablation. Currently in V paced rhythm, pacemaker dependent, heart rate 60 bpm. Sick sinus syndrome status post permanent pacemaker Coronary artery disease status post angioplasty RCA Hypertension Hyperlipidemia Severe COPD with exacerbation Chronic hypoxic respiratory failure on home O2 Severe pulmonary hypertension Moderate mitral regurgitation Plan: Continue IV heparin for NSTEMI treatment. Continue aspirin 81 mg daily, atorvastatin 40 mg daily, Farxiga 10 mg daily, Toprol XL 50 mg daily, potassium replacement. Discontinue IV Lasix continue. Aldactone 12.5 mg daily. Monitor renal function. If renal function is stable, consider adding ARB. Continue amlodipine 2.5 mg daily. B12 folate iron supplementation Obtain limited 2-D echocardiogram and Doppler study Discussed option of undergoing cardiac catheterization and patient is agreeable to move forward with that. Patient will be scheduled for left heart catheterization tomorrow with Dr. Sally Flynn at 730. Heparin drip to be discontinued at 5 AM. No IV fluids due to patient's heart failure. For her severe pulmonary hypertension, she needs to be on continuous oxygen with a goal SpO2 of more than 92. Nurse practitioner note has been reviewed, I agree with documented findings and plan of care. Patient was seen and examined. Objective - Vital Signs Vital signs: Vital Signs Temp 97.8 F 01/17/24 08:15 Pulse 64 01/17/24 08:42 Resp 18 01/17/24 08:15 BP 113/56 01/17/24 08:15 Pulse Ox 92 L 01/17/24 08:15 FiO2 Intake & Output 01/16/24 01/17/24 01/17/24 18:59 06:59 18:59 Intake Total 225.71 94.709 180 Output Total 900 Balance -674.29 94.709 180 Weight 71.2 kg Intake: Intake, IV Titration 45.71 94.709 Amount Heparin Sod,Pork in 0.45% 45.71 94.709 NaCl 25,000 unit In 0.45 % NaCl 1 250ml.bag @ 12 UNITS/KG/HR 7.893 mls/hr IV .Q24H [facility] Rx#: [id number] Oral 180 180 Output: Urine 900 Post Void Residual 0 Other: Voiding Method Toilet Toilet Toilet # Voids 2 1 - Labs CBC & Chem 7: 01/16/24 07:28 01/17/24 07:14 Labs: Abnormal Lab Results - Last 24 Hours (Table) 01/17/24 01/17/24 Range/Units 07:14 07:14 APTT 55.6 H (22.0-30.0) sec Sodium 131 L (137-145) mmol/L Chloride 96 L (98-107) mmol/L BUN 67 H (7-17) mg/dL Creatinine 1.35 H (0.52-1.04) mg/dL Glucose 110 H (74-99) mg/dL
[2024-01-17] MEDS: BUMETANIDE 1 MG TAB PO SCH (15:58)
[2024-01-17] MEDS: ALPRAZolam 0.25 MG TAB PO PRN (15:59)
[2024-01-18 06:03] LABS: Glucose,Whole Blood 117 mg/dL (70-110)
[2024-01-18] MEDS: ATORVASTATIN 80 MG TAB PO ONE (06:11)
[2024-01-18] MEDS: ASPIRIN 325 MG TAB PO ONE (06:12)
[2024-01-18] MEDS: SPIRONOLACTONE 25 MG TAB PO SCH (06:12)
[2024-01-18 06:49] LABS: Anisocytosis Moderate; HGB 10.6 gm/dL (11.4-16.0); Hypochromasia Marked; MCH 22.7 pg (25.0-35.0); MCHC 30.3 g/dL (31.0-37.0); Mean Platelet Volume 6.6; Microcytosis Moderate; RBC 4.66 m/uL (3.80-5.40); RDW 22.3 % (11.5-15.5); WBC 17.4 k/uL (3.8-10.6)
[2024-01-18 06:59] LABS: African American GFR (CKD) 60 (>60 ml/min/1.73 sqM); Anion Gap 9 mmol/L; Blood Urea Nitrogen 68 mg/dL (7-17); Calcium 9.5 mg/dL (8.4-10.2); Carbon Dioxide 24 mmol/L (22-30); Chloride 96 mmol/L (98-107); Glucose 101 mg/dL (74-99); Non-African American GFR(CKD) 52 (>60 ml/min/1.73 sqM); Potassium 3.6 mmol/L (3.5-5.1); Sodium 129 mmol/L (137-145)
[2024-01-18 07:27] LABS: Platelet Count 81 k/uL (150-450)
[2024-01-18 07:30] LABS: Band Neutrophils % 2 %; Lymphocytes # (M) 1.39 k/uL (1.0-4.8); Metamyelocytes # (M) 0.35 k/uL (0); Metamyelocytes % 2 %; Monocytes # (M) 0.52 k/uL (0-1.0); Myelocytes # (M) 0.17 k/uL (0); Myelocytes % 1 %; Neutrophils % (M) 86 %; Nucleated Red Blood Cells 0 /100 WBC (0-0); Total Cells Counted 200
[2024-01-18 07:31] LABS: Crenated RBC Present; Poikilocytosis (M) Present; RBC Fragments Present
[2024-01-18] MEDS: HEPARIN SODIUM,PORCINE (1 ML) 2,500 UNIT in SODIUM CHLORIDE 0.9% 250 ML IRRIGATION PRN (07:36)
[2024-01-18] MEDS: HEPARIN SODIUM,PORCINE 10,000 UNIT in SODIUM CHLORIDE 0.9% 1,000 ML IRRIGATION PRN (07:36)
[2024-01-18] MEDS: HEPARIN SODIUM,PORCINE 10,000 UNIT in SODIUM CHLORIDE 0.9% 1,000 ML IRRIGATION ONE (07:38)
[2024-01-18] MEDS: fentaNYL (PF) 50 MCG/ML 2 ML AMP IVP ONE (07:45)
[2024-01-18] MEDS: MIDAZOLAM 2 MG/2 ML VIAL IVP ONE (07:45)
[2024-01-18] MEDS: LIDOCAINE 1% INJ 10MG/ML (20 ML MDV) SQ ONE (07:48)
[2024-01-18] MEDS: IOPAMIDOL-370 100ML BTL INJ ONE (08:13)
--- NOTE | 2024-01-18 09:20 | CC ---
CARDIAC CATHETERIZATION REPORT INDICATION: [id number] elevation MS. HISTORY OF PRESENT ILLNESS: This is a 78-year-old lady with history of permanent atrial fibrillation, status post AV donte ablation with permanent pacemaker, who presented to hospital with chest pain and had mild troponin elevation. Dr. Whittaker, who evaluated the patient advised her to undergo cardiac catheterization, and I have been asked to perform the same. PROCEDURE NOTE: After obtaining informed consent, left heart catheterization and coronary angiogram were performed via the right femoral artery using standard Miguel A catheters. The patient tolerated the procedure well without any obvious immediate complications. A femoral angiogram was performed, and Angio-Seal was deployed for hemostasis. Total sedation time was 15 minutes. Right femoral arterial access was obtained using Seldinger technique, a 6-Maltese sheath was placed. Catheters and wires were floated into the ascending aorta under fluoroscopic guidance. We could not do a radial cath as her only venous access is right close to the radial artery, and the pulses are feeble on the left side. FINDINGS: 1. Hemodynamics: Left ventricular end-diastolic pressure is 12 to 14 mm. There is no significant gradient across the aortic valve. 2. Left ventriculogram: Left ventriculogram is not performed. 3. Angiographic data: Right coronary artery: The right coronary artery is a large dominant vessel, and the previously stented segment within the proximal right coronary artery is patent. Left main coronary artery is a short vessel and is free of stenosis, divides into left anterior descending coronary artery and circumflex coronary artery. Circumflex coronary artery is a large codominant system gives off a large caliber OM branch. Both the circ and the OM branch are free of significant stenosis. LAD shows mild nonobstructive disease as does the diagonal branch. CONCLUSIONS: Patent stent within the right coronary artery and mild nonobstructive CAD. PLAN: I reviewed angiographic data with the patient and told her that her chest discomfort is noncardiac in origin, and the mild troponin elevation could either be due to a type 2 myocardial infarction or due to plaque rupture and occlusion of a small distal vessel. We will resume her Eliquis this evening and continue rest of her medications. MMODL / IJN: [id number] /
--- NOTE | 2024-01-18 13:18 | P.PN ---
Subjective Progress Note Date: 01/18/24 Chest pain, elevated troponins, CHF History of present illness: This is a 78-year-old female patient of Dr. Sally Flynn with past medical history of atrial fibrillation status post AV donte ablation, permanent pacemaker, coronary artery disease with prior angioplasty, severe COPD, chronic hypoxic respiratory failure on home O2, chronic diastolic heart failure, severe pulmonary hypertension. We have been asked to evaluate the patient for chest pain, elevated troponins and CHF. Patient states she came into the hospital due to chest pain and now she is complaining of anxiety. She states she is very anxious regarding something that is going on with her son. Patient had a recent hospitalization and discharged on 01/05/2024 at which time she was treated for COPD and CHF exacerbation. Over the past 1 to 2 days she developed intermittent chest pain in the center of her chest that occurs with while at rest and with exertion. The pain became worse last evening and did not go away and she called EMS and was brought into the hospital for further evaluation. Blood pressure 126/59, heart rate 60, pulse ox 90% on 4 L nasal cannula. Patient is seen today in the emergency center waiting for a bed on the cardiac stepdown unit. She is status post 1 dose of IV Lasix this morning. EKG: Ventricularly paced rhythm, underlying atrial fibrillation Chest x-ray: Cardiomegaly with perhaps mild central vascular congestion. Correlate for CHF exacerbation or fluid overload state. No significant change from prior. Laboratory studies: WBC 18.8, hemoglobin 11.5, platelet count 129. Sodium 133, potassium 4, BUN 70 creatinine 1.27. Troponin 0.068 and 0.084. proBNP 25,500. Home cardiac medications: Eliquis 5 mg twice daily, aspirin 81 mg daily, Lipitor 40 mg at bedtime, Jardiance 10 mg daily, Toprol XL 50 mg daily, potassium chloride 10 mill equivalents daily, torsemide 40 mg daily. Echocardiogram performed 04/10/2023 revealed EF of 60 to 65%, severe pulmonary hypertension, RVSP 74 mmHg, severe LA dilatation, moderate mitral regurgitation and calcified mitral valve. PPM wire in RV. Device: Biventricular PPM MedtronicSerena 07/18/2019. Lexiscan stress test performed 09/21/2020 revealed inconclusive EKG due to baseline EKG abnormalities. Abnormal nuclear scan showing fixed mid anterior wall defect secondary to soft tissue attenuation. January 16, 2024 Patient seen and examined at bedside this a.m. Patient denies having any active chest pain chest pressure or shortness of breath at this time. Earlier morning she was in respiratory distress which got better after patient got relaxed and was supplemental oxygen. Currently she is on 4 L to 5 L of oxygen. Saturating 92%, heart rates around 60 beats minute, left ventricularly paced rhythm, underlying is atrial fibrillation. BP 138/57, significant swelling in bilateral lower extremity 01/16 Patient is seen today in follow-up. Discussed in detail doing cardiac catheterization. Patient is having some shortness of breath and wheezing at this time. Doubt the patient will be able to lay flat for cardiac ca theterization. She is currently on a heparin drip which will be continued. Echocardiogram is pending. Blood pressure 113/56, heart rate 63, pulse ox 92% on 4 L nasal cannula. Repeat blood work reveals BUN 67 creatinine 1.35, sodium 131, potassium 4.3. 01/17 Today, patient underwent cardiac catheterization with Dr. Flynn which revealed patent stent within the right coronary artery and mild nonobstructive CAD.. Patient was told that the chest discomfort is noncardiac in origin and the mild troponin elevation could be from type II [place] or from plaque rupture and occlusion of a small distal vessel. Patient will be resumed on Eliquis this evening as well as her other medications. Blood pressure 122/77, heart rate 60, pulse ox 94% on 4 L nasal cannula. Repeat blood work reveals sodium 129, BUN 68 and creatinine 1.04. Physical examination: Gen: This is a 78-year-old female in no acute distress VS: reviewed HEENT: Head is atraumatic, normocephalic. Pupils equal, round. Sclerae is anicte korin. NECK: Supple. No JVD. LUNGS: Diminished breath sounds bilaterally. No intercostal retractions. HEART: Regular rate and rhythm. No murmur. ABDOMEN: Soft No tenderness. EXTREMITIES: 2+ bilateral lower extremity edema up to mid thigh. No calf tenderness. NEUROLOGICAL: Patient is awake, alert and oriented x3. Assessment: Type II NSTEMI Acute on chronic diastolic heart failure Leukocytosis possibly due to outpatient prednisone use Microcytic anemia, thrombocytopenia Chronic atrial fibrillation status post AV donte ablation. Currently in V paced rhythm, pacemaker dependent. Sick sinus syndrome status post permanent pacemaker Coronary artery disease status post angioplasty RCA Hypertension Hyperlipidemia Severe COPD with exacerbation Chronic hypoxic respiratory failure on home O2 Severe pulmonary hypertension Moderate mitral regurgitation Plan: Continue aspirin 81 mg daily, atorvastatin 40 mg daily, Farxiga 10 mg daily, Toprol XL 50 mg daily, potassium replacement. Continue patient on Bumex 1 mg daily and Aldactone 12.5 mg daily. Resume Eliquis 5 mg twice daily tonight Monitor renal function. If renal function is stable, consider adding ARB which can be done in the outpatient setting. Continue amlodipine 2.5 mg daily. For her severe pulmonary hypertension, she needs to be on continuous oxygen with a goal SpO2 of more than 92. Patient is cleared for discharge and may follow-up with Dr. Flynn in the office in 1 to 2 weeks. Nurse practitioner note has been reviewed, I agree with documented findings and plan of care. Patient was seen and examined. Objective - Vital Signs Vital signs: Vital Signs Temp 96.4 F L 01/18/24 09:00 Pulse 61 01/18/24 09:15 Resp 18 01/18/24 09:15 BP 119/72 01/18/24 09:15 Pulse Ox 97 01/18/24 09:15 FiO2 Intake & Output 01/17/24 01/18/24 01/18/24 18:59 06:59 18:59 Intake Total 780 251.366 100 Output Total 410 Balance 780 -158.634 100 Weight 66.5 kg Intake: IV 100 Intake, IV Titration 201.366 Amount Heparin Sod,Pork in 0.45% 201.366 NaCl 25,000 unit In 0.45 % NaCl 1 250ml.bag @ 12 UNITS/KG/HR 7.893 mls/hr IV .Q24H [facility] Rx#: [id number] Oral 780 50 Output: Urine 410 Straight 410 Other: Voiding Method Toilet Toilet # Voids 1 2 - Labs CBC & Chem 7: 01/18/24 06:04 01/18/24 06:04 Labs: Abnormal Lab Results - Last 24 Hours (Table) 01/17/24 01/18/24 01/18/24 Range/Units 07:14 06:02 06:04 WBC 17.4 H (3.8-10.6) k/uL Hgb 10.6 L (11.4-16.0) gm/dL MCV 75.0 L (80.0-100.0) fL MCH 22.7 L (25.0-35.0) pg MCHC 30.3 L (31.0-37.0) g/dL RDW 22.3 H (11.5-15.5) % Plt Count 81 L (150-450) k/uL Neutrophils # (Manual) 15.30 H (1.3-7.7) k/uL Metamyelocytes # (Man) 0.35 H (0) k/uL Myelocytes # (Manual) 0.17 H (0) k/uL Sodium 131 L (137-145) mmol/L Chloride 96 L (98-107) mmol/L BUN 67 H (7-17) mg/dL Creatinine 1.35 H (0.52-1.04) mg/dL Glucose 110 H (74-99) mg/dL POC Glucose (mg/dL) 117 H (70-110) mg/dL 01/18/24 Range/Units 06:04 WBC (3.8-10.6) k/uL Hgb (11.4-16.0) gm/dL MCV (80.0-100.0) fL MCH (25.0-35.0) pg MCHC (31.0-37.0) g/dL RDW (11.5-15.5) % Plt Count (150-450) k/uL Neutrophils # (Manual) (1.3-7.7) k/uL Metamyelocytes # (Man) (0) k/uL Myelocytes # (Manual) (0) k/uL Sodium 129 L (137-145) mmol/L Chloride 96 L (98-107) mmol/L BUN 68 H (7-17) mg/dL Creatinine (0.52-1.04) mg/dL Glucose 101 H (74-99) mg/dL POC Glucose (mg/dL) (70-110) mg/dL
--- NOTE | 2024-01-18 20:10 | P.PN ---
Subjective Progress Note Date: 01/18/24 78-year-old female came in with complaints of chest pain on the left side of the chest radiating to the entire precordium on the left side. Patient does have history of COPD and also has chronic diastolic dysfunction patient was complaining of some orthopnea chest x-ray is consistent with pulmonary edema although patient does not have any significant pedal edema. Patient usually takes 40 mg of torsemide at home patient had a recent hospitalization at the time she was treated for COPD exacerbation, hyponatremia patient was given Samsca presents with serum sodium is 133 patient has serum creatinine of 1.27 does have chronic kidney disease with baseline creatinine around 1.3-1.5. This may be secondary to cardiorenal syndrome patient also has severe pulmonary hypertension. Patient had history of coronary disease with stent in 2011 troponins are slightly elevated to 0.068 and 0.084. Patient's BNP is 25,000 and her previous BNP was 11,200. Patient is presently on 4 L of oxygen patient does not use oxygen at home unsure how many liters she uses at home 01/16/2024 To be seen in follow-up she is currently in the ER pending a bed on the medical floor. No further reports of chest pain at this time and she does report significant improvement in her shortness of breath. Pending repeat echo cardiogram. Patient continues on IV Lasix 40 mg every 12 as well as IV heparin. 01/17/2024 Patient is evaluated today on the cardiac unit resting in bed. Continues to report intermittent episodes of chest tightness which the patient feels similar to the time that she had to get a cardiac stent placed most recently. Patient states that she discussed with her family going for a cardiac catheterization and would like to pursue this at this time. She continues on IV heparin. Echocardiogram pending. She continues on diuretic therapy has been transition to oral Bumex. 01/18/2024 Patient evaluated today in follow up currently on bedrest post cardiac catheterization. Cath reveals patent stent within the right coronary artery and mild nonobstructive CAD. At this time patient is not having any chest discomfort. Patient did have RSV back in June of this year and since has had issues with shortness of breath and chest tightness. Procalcitonin level was elevated at 0.67, and white blood cell count remains elevated at at 17. Review of Systems Constitutional: Denied any fatigue denied any fever. Cardio vascular: denied any chest pain, palpitations Gastrointestinal: denied any nausea, vomiting, diarrhea Pulmonary: Denied any shortness of breath cough Neurologic denied any new focal deficits All inpatient medications were reviewed and appropriate changes in these medications as dictated in the interval history and assessment and plan. PHYSICAL EXAMINATION: GENERAL: The patient is alert and oriented x3, not in any acute distress. Well developed, well nourished. HEENT: Pupils are round and equally reacting to light. EOMI. No scleral icterus. No conjunctival pallor. Normocephalic, atraumatic. No pharyngeal erythema. No thyromegaly. CARDIOVASCULAR: S1 and S2 present. No murmurs, rubs, or gallops. PULMONARY: Slightly diminished air entry to bilateral lung moreno no wheezing or crackles were appreciated ABDOMEN: Soft, nontender, nondistended, normoactive bowel sounds. No palpable organomegaly. MUSCULOSKELETAL: No joint swelling or deformity. EXTREMITIES: No cyanosis, clubbing, or pedal edema. NEUROLOGICAL: Gross neurological examination did not reveal any focal deficits. SKIN: No rashes. Assessment and plan Acute on chronic hypoxic respiratory failure: Secondary to CHF exacerbation transition to oral Bumex -Acute COPD exacerbation started on course of IV ceftriaxone and oral azithromycin, oral prednisone. -Elevated troponins possibility of NSTEMI most probably type II from CHF; cath reveals patent RCA stent and mild nonobstructive CAD. -Hyponatremia hypovolemic on normal saline and repeat blood work in the AM. -chronic kidney disease stage II-IIIb -Chronic hypercapnic respiratory failure secondary to COPD -Congestive failure chronic diastolic function with acute exacerbation -Severe pulmonary hypertension and cor pulmonale -Hyperlipidemia -Hypothyroidism DVT prophylaxis: Resumed on eliquis. Full Code The impression and plan of care has been dictated by Praveena Barry Nurse Practitioner as directed. Dr. Karrie MD I have performed a history and physical examination and medical decision making of this patient, discussed the same with the dictator, and agree with the dictators assessment and plan as written, documented as a scribe. Based on total visit time, I have performed more than 50% of this visit. Objective - Vital Signs Vital signs: Vital Signs Temp 96.4 F L 01/18/24 10:15 Pulse 61 01/18/24 16:00 Resp 18 01/18/24 14:00 BP 106/58 01/18/24 16:00 Pulse Ox 93 L 01/18/24 16:00 FiO2 Intake & Output 01/18/24 01/18/24 01/19/24 06:59 18:59 06:59 Intake Total 251.366 454 Output Total 410 675 Balance -158.634 -221 Weight 66.5 kg Intake: IV 100 Intake, IV Titration 201.366 Amount Heparin Sod,Pork in 0.45% 201.366 NaCl 25,000 unit In 0.45 % NaCl 1 250ml.bag @ 12 UNITS/KG/HR 7.893 mls/hr IV .Q24H [facility] Rx#: [id number] Oral 50 354 Output: Urine 410 675 Straight 410 Uretheral (Bautista) 425 Other: Voiding Method Toilet Indwelling Catheter # Voids 2 - Labs CBC & Chem 7: 01/18/24 06:04 01/18/24 06:04 Labs: Abnormal Lab Results - Last 24 Hours (Table) 01/18/24 01/18/24 01/18/24 Range/Units 06:02 06:04 06:04 WBC 17.4 H (3.8-10.6) k/uL Hgb 10.6 L (11.4-16.0) gm/dL MCV 75.0 L (80.0-100.0) fL MCH 22.7 L (25.0-35.0) pg MCHC 30.3 L (31.0-37.0) g/dL RDW 22.3 H (11.5-15.5) % Plt Count 81 L (150-450) k/uL Neutrophils # (Manual) 15.30 H (1.3-7.7) k/uL Metamyelocytes # (Man) 0.35 H (0) k/uL Myelocytes # (Manual) 0.17 H (0) k/uL Sodium 129 L (137-145) mmol/L Chloride 96 L (98-107) mmol/L BUN 68 H (7-17) mg/dL Glucose 101 H (74-99) mg/dL POC Glucose (mg/dL) 117 H (70-110) mg/dL Procalcitonin (0.02-0.50) ng/mL 01/18/24 Range/Units 06:04 WBC (3.8-10.6) k/uL Hgb (11.4-16.0) gm/dL MCV (80.0-100.0) fL MCH (25.0-35.0) pg MCHC (31.0-37.0) g/dL RDW (11.5-15.5) % Plt Count (150-450) k/uL Neutrophils # (Manual) (1.3-7.7) k/uL Metamyelocytes # (Man) (0) k/uL Myelocytes # (Manual) (0) k/uL Sodium (137-145) mmol/L Chloride (98-107) mmol/L BUN (7-17) mg/dL Glucose (74-99) mg/dL POC Glucose (mg/dL) (70-110) mg/dL Procalcitonin 0.67 H (0.02-0.50) ng/mL Assessment and Plan Time with Patient: Less than 30
[2024-01-18] MEDS: AZITHROMYCIN 500 MG TAB PO SCH (20:48)
[2024-01-18] MEDS: APIXABAN 5 MG TAB PO SCH (20:49)
[2024-01-18] MEDS: predniSONE 20 MG TAB PO SCH (20:55)
[2024-01-18] MEDS: ALPRAZolam 0.5 MG TAB PO PRN (23:24)
[2024-01-19 08:12] LABS: African American GFR (CKD) 46 (>60 ml/min/1.73 sqM); Anion Gap 10 mmol/L; Blood Urea Nitrogen 63 mg/dL (7-17); Calcium 9.8 mg/dL (8.4-10.2); Carbon Dioxide 24 mmol/L (22-30); Chloride 95 mmol/L (98-107); Glucose 128 mg/dL (74-99); Non-African American GFR(CKD) 40 (>60 ml/min/1.73 sqM); Potassium 4.5 mmol/L (3.5-5.1); Sodium 129 mmol/L (137-145)
--- NOTE | 2024-01-19 12:01 | P.PN ---
Subjective Progress Note Date: 01/19/24 Chest pain, elevated troponins, CHF History of present illness: This is a 78-year-old female patient of Dr. Sally Flynn with past medical history of atrial fibrillation status post AV donte ablation, permanent pacemaker, coronary artery disease with prior angioplasty, severe COPD, chronic hypoxic respiratory failure on home O2, chronic diastolic heart failure, severe pulmonary hypertension. We have been asked to evaluate the patient for chest pain, elevated troponins and CHF. Patient states she came into the hospital due to chest pain and now she is complaining of anxiety. She states she is very anxious regarding something that is going on with her son. Patient had a recent hospitalization and discharged on 01/05/2024 at which time she was treated for COPD and CHF exacerbation. Over the past 1 to 2 days she developed intermittent chest pain in the center of her chest that occurs with while at rest and with exertion. The pain became worse last evening and did not go away and she called EMS and was brought into the hospital for further evaluation. Blood pressure 126/59, heart rate 60, pulse ox 90% on 4 L nasal cannula. Patient is seen today in the emergency center waiting for a bed on the cardiac stepdown unit. She is status post 1 dose of IV Lasix this morning. EKG: Ventricularly paced rhythm, underlying atrial fibrillation Chest x-ray: Cardiomegaly with perhaps mild central vascular congestion. Correlate for CHF exacerbation or fluid overload state. No significant change from prior. Laboratory studies: WBC 18.8, hemoglobin 11.5, platelet count 129. Sodium 133, potassium 4, BUN 70 creatinine 1.27. Troponin 0.068 and 0.084. proBNP 25,500. Home cardiac medications: Eliquis 5 mg twice daily, aspirin 81 mg daily, Lipitor 40 mg at bedtime, Jardiance 10 mg daily, Toprol XL 50 mg daily, potassium chloride 10 mill equivalents daily, torsemide 40 mg daily. Echocardiogram performed 04/10/2023 revealed EF of 60 to 65%, severe pulmonary hypertension, RVSP 74 mmHg, severe LA dilatation, moderate mitral regurgitation and calcified mitral valve. PPM wire in RV. Device: Biventricular PPM MedtronicSerena 07/18/2019. Lexiscan stress test performed 09/21/2020 revealed inconclusive EKG due to baseline EKG abnormalities. Abnormal nuclear scan showing fixed mid anterior wall defect secondary to soft tissue attenuation. January 16, 2024 Patient seen and examined at bedside this a.m. Patient denies having any active chest pain chest pressure or shortness of breath at this time. Earlier morning she was in respiratory distress which got better after patient got relaxed and was supplemental oxygen. Currently she is on 4 L to 5 L of oxygen. Saturating 92%, heart rates around 60 beats minute, left ventricularly paced rhythm, underlying is atrial fibrillation. BP 138/57, significant swelling in bilateral lower extremity 01/16 Patient is seen today in follow-up. Discussed in detail doing cardiac catheterization. Patient is having some shortness of breath and wheezing at this time. Doubt the patient will be able to lay flat for cardiac ca theterization. She is currently on a heparin drip which will be continued. Echocardiogram is pending. Blood pressure 113/56, heart rate 63, pulse ox 92% on 4 L nasal cannula. Repeat blood work reveals BUN 67 creatinine 1.35, sodium 131, potassium 4.3. 01/17 Today, patient underwent cardiac catheterization with Dr. Flynn which revealed patent stent within the right coronary artery and mild nonobstructive CAD.. Patient was told that the chest discomfort is noncardiac in origin and the mild troponin elevation could be from type II [place] or from plaque rupture and occlusion of a small distal vessel. Patient will be resumed on Eliquis this evening as well as her other medications. Blood pressure 122/77, heart rate 60, pulse ox 94% on 4 L nasal cannula. Repeat blood work reveals sodium 129, BUN 68 and creatinine 1.04. 01/18 Patient states that her breathing is so-so this morning. She continues to have a cough and sounds congested. She has been maintained on oral Bumex 1 mg daily which will increase. Blood pressure 151/84, heart rate in the 60s and 70s, pulse ox 92% on 4 L nasal cannula. Repeat blood work reveals sodium 129, potassium 4.5, BUN 63 creatinine 1.29. Physical examination: Gen: This is a 78-year-old female in no acute distress VS: reviewed HEENT: Head is atraumatic, normocephalic. Pupils equal, round. Sclerae is anicteric. NECK: Supple. No JVD. LUNGS: Diminished breath sounds bilaterally. No intercostal retractions. HEART: Regular rate and rhythm. No murmur. ABDOMEN: Soft No tenderness. EXTREMITIES: 2+ bilateral lower extremity edema up to mid thigh. No calf tenderness. NEUROLOGICAL: Patient is awake, alert and oriented x3. Assessment: Type II NSTEMI Acute on chronic diastolic heart failure Leukocytosis possibly due to outpatient prednisone use Microcytic anemia, thrombocytopenia Chronic atrial fibrillation status post AV donte ablation. Currently in V paced rhythm, pacemaker dependent. Sick sinus syndrome status post permanent pacemaker Coronary artery disease status post angioplasty RCA Hypertension Hyperlipidemia Severe COPD with exacerbation Chronic hypoxic respiratory failure on home O2 Severe pulmonary hypertension Moderate mitral regurgitation Plan: Continue aspirin 81 mg daily, atorvastatin 40 mg daily, Farxiga 10 mg daily, Top rol XL 50 mg daily, potassium replacement. Continue patient on Bumex 1 mg and increase frequency to twice daily and continue Aldactone 12.5 mg daily. Continue Eliquis 5 mg twice daily tonight Monitor renal function. If renal function is stable, consider adding ARB which can be done in the outpatient setting. Continue amlodipine 2.5 mg daily. For her severe pulmonary hypertension, she needs to be on continuous oxygen with a goal SpO2 of more than 92. Primary team to consider BiPAP. Patient is cleared for discharge and may follow-up with Dr. Flynn in the office in 1 to 2 weeks. Nurse practitioner note has been reviewed, I agree with documented findings and plan of care. Patient was seen and examined. Objective - Vital Signs Vital signs: Vital Signs Temp 98 F 01/19/24 07:24 Pulse 63 01/19/24 09:28 Resp 20 01/19/24 09:28 BP 125/75 01/19/24 07:24 Pulse Ox 93 L 01/19/24 08:10 FiO2 Intake & Output 01/18/24 01/19/24 01/19/24 18:59 06:59 18:59 Intake Total 454 118 Output Total 675 400 Balance -221 -400 118 Weight 72.3 kg Intake: IV 100 Oral 354 118 Output: Urine 675 400 Uretheral (Bautista) 425 Other: Voiding Method Indwelling Catheter Indwelling Catheter Indwelling Catheter - Labs CBC & Chem 7: 01/18/24 06:04 01/19/24 07:05 Labs: Abnormal Lab Results - Last 24 Hours (Table) 01/18/24 01/19/24 Range/Units 06:04 07:05 Sodium 129 L (137-145) mmol/L Chloride 95 L (98-107) mmol/L BUN 63 H (7-17) mg/dL Creatinine 1.29 H (0.52-1.04) mg/dL Glucose 128 H (74-99) mg/dL Procalcitonin 0.67 H (0.02-0.50) ng/mL
[2024-01-19] MEDS: BUMETANIDE 1 MG TAB PO SCH (15:52)
[2024-01-19] MEDS: ONDANSETRON 4 MG/2 ML VIAL IVP PRN (17:50)
--- NOTE | 2024-01-20 16:07 | XR ---
EXAMINATION TYPE: XR chest 2V DATE OF EXAM: 01/20/2024 3:57 PM COMPARISON: Previous chest radiograph 01/25/2024. CLINICAL INDICATION: Female, 78 years old with history of dyspnea; [facility] TECHNIQUE: XR chest 2V Frontal and lateral views of the chest. FINDINGS: Cardiac megaly. Patchy bilateral interstitial opacities and small left pleural effusion. Possible trace right pleural effusion. Left chest wall cardiac pacemaker device with leads overlying the right atrium and right ventricle. N o partial pneumothorax. IMPRESSION: Cardiomegaly, pulmonary vascular congestion and small left pleural effusion suggesting mild pulmonary edema. [facility], Workstation: [id number], 01/20/2024 4:05 PM
[2024-01-20] MEDS: BUMETANIDE 0.25 MG/ML 4 ML VIAL IVP STA (16:55)
[2024-01-20] MEDS: BUMETANIDE 0.25 MG/ML 4 ML VIAL IVP SCH (21:25)
[2024-01-20] MEDS: polyethylene glycoL 3350 17 GM POWD.PACK PO SCH (21:34)
--- NOTE | 2024-01-20 23:14 | P.PN ---
Subjective Progress Note Date: 01/19/24 78-year-old female came in with complaints of chest pain on the left side of the chest radiating to the entire precordium on the left side. Patient does have history of COPD and also has chronic diastolic dysfunction patient was complaining of some orthopnea chest x-ray is consistent with pulmonary edema although patient does not have any significant pedal edema. Patient usually takes 40 mg of torsemide at home patient had a recent hospitalization at the time she was treated for COPD exacerbation, hyponatremia patient was given Samsca presents with serum sodium is 133 patient has serum creatinine of 1.27 does have chronic kidney disease with baseline creatinine around 1.3-1.5. This may be secondary to cardiorenal syndrome patient also has severe pulmonary hypertension. Patient had history of coronary disease with stent in 2011 troponins are slightly elevated to 0.068 and 0.084. Patient's BNP is 25,000 and her previous BNP was 11,200. Patient is presently on 4 L of oxygen patient does not use oxygen at home unsure how many liters she uses at home Objective - Vital Signs Vital signs: Vital Signs Temp 97.8 F 01/19/24 10:59 Pulse 72 01/19/24 11:48 Resp 20 01/19/24 10:59 BP 151/84 01/19/24 10:59 Pulse Ox 92 L 01/19/24 10:59 FiO2 Intake & Output 01/18/24 01/19/24 01/19/24 18:59 06:59 18:59 Intake Total 454 118 Output Total 675 400 Balance -221 -400 118 Weight 72.3 kg Intake: IV 100 Oral 354 118 Output: Urine 675 400 Uretheral (Bautista) 425 Other: Voiding Method Indwelling Catheter Indwelling Catheter Indwelling Catheter - Exam GENERAL: The patient is alert and oriented x3, not in any acute distress. Well developed, well nourished. HEENT: Pupils are round and equally reacting to light. EOMI. No scleral icterus. No conjunctival pallor. Normocephalic, atraumatic. No pharyngeal erythema. No thyromegaly. CARDIOVASCULAR: S1 and S2 present. No murmurs, rubs, or gallops. PULMONARY: Slightly diminished air entry to bilateral lung moreno no wheezing or crackles were appreciated ABDOMEN: Soft, nontender, nondistended, normoactive bowel sounds. No palpable organomegaly. MUSCULOSKELETAL: No joint swelling or deformity. EXTREMITIES: No cyanosis, clubbing, or pedal edema. NEUROLOGICAL: Gross neurological examination did not reveal any focal deficits. SKIN: No rashes. - Labs CBC & Chem 7: 01/18/24 06:04 01/19/24 07:05 Labs: Abnormal Lab Results - Last 24 Hours (Table) 01/18/24 01/19/24 Range/Units 06:04 07:05 Sodium 129 L (137-145) mmol/L Chloride 95 L (98-107) mmol/L BUN 63 H (7-17) mg/dL Creatinine 1.29 H (0.52-1.04) mg/dL Glucose 128 H (74-99) mg/dL Procalcitonin 0.67 H (0.02-0.50) ng/mL Assessment and Plan Assessment: Assessment and plan Acute on chronic hypoxic respiratory failure: Secondary to CHF exacerbation transition to oral Bumex -Acute COPD exacerbation started on course of IV ceftriaxone and oral azithromycin, oral prednisone. -Elevated troponins possibility of NSTEMI most probably type II from CHF; cath reveals patent RCA stent and mild nonobstructive CAD. -Hyponatremia hypovolemic on normal saline and repeat blood work in the AM. -chronic kidney disease stage II-IIIb -Chronic hypercapnic respiratory failure secondary to COPD -Congestive failure chronic diastolic function with acute exacerbation -Severe pulmonary hypertension and cor pulmonale -Hyperlipidemia -Hypothyroidism DVT prophylaxis: Resumed on eliquis. Full Code
--- NOTE | 2024-01-20 23:20 | P.PN ---
Subjective Progress Note Date: 01/20/24 78-year-old female came in with complaints of chest pain on the left side of the chest radiating to the entire precordium on the left side. Patient does have history of COPD and also has chronic diastolic dysfunction patient was complaining of some orthopnea chest x-ray is consistent with pulmonary edema although patient does not have any significant pedal edema. Patient usually takes 40 mg of torsemide at home patient had a recent hospitalization at the time she was treated for COPD exacerbation, hyponatremia patient was given Samsca presents with serum sodium is 133 patient has serum creatinine of 1.27 does have chronic kidney disease with baseline creatinine around 1.3-1.5. This may be secondary to cardiorenal syndrome patient also has severe pulmonary hypertension. Patient had history of coronary disease with stent in 2011 troponins are slightly elevated to 0.068 and 0.084. Patient's BNP is 25,000 and her previous BNP was 11,200. Patient is presently on 4 L of oxygen patient does not use oxygen at home unsure how many liters she uses at home Patient remains on IV Rocephin and azithromycin; reports feeling weak and lethargic this afternoon -- We will plan to continue with current management for another 24 hours; possible discharge in next 24 hours if remains stable Objective - Vital Signs Vital signs: Vital Signs Temp 97.4 F L 01/20/24 03:18 Pulse 60 01/20/24 09:48 Resp 18 01/20/24 09:48 BP 143/75 01/20/24 08:42 Pulse Ox 95 01/20/24 08:47 FiO2 Intake & Output 01/19/24 01/20/24 01/20/24 18:59 06:59 18:59 Intake Total 118 10 250 Output Total 350 0 Balance -232 10 250 Intake: IV 10 10 Invasive Line 4 10 10 Oral 118 240 Output: Urine 350 0 Other: Voiding Method Indwelling Catheter Indwelling Catheter Indwelling Catheter - Exam GENERAL: The patient is alert and oriented x3, not in any acute distress. Well developed, well nourished. HEENT: Pupils are round and equally reacting to light. EOMI. No scleral icterus. No conjunctival pallor. Normocephalic, atraumatic. No pharyngeal erythema. No thyromegaly. CARDIOVASCULAR: S1 and S2 present. No murmurs, rubs, or gallops. PULMONARY: Slightly diminished air entry to bilateral lung moreno no wheezing or crackles were appreciated ABDOMEN: Soft, nontender, nondistended, normoactive bowel sounds. No palpable organomegaly. MUSCULOSKELETAL: No joint swelling or deformity. EXTREMITIES: No cyanosis, clubbing, or pedal edema. NEUROLOGICAL: Gross neurological examination did not reveal any focal deficits. SKIN: No rashes. - Labs CBC & Chem 7: 01/18/24 06:04 01/19/24 07:05 Assessment and Plan Assessment: Assessment and plan Acute on chronic hypoxic respiratory failure: Secondary to CHF exacerbation transition to oral Bumex -Acute COPD exacerbation started on course of IV ceftriaxone and oral azithromycin, oral prednisone. -Elevated troponins possibility of NSTEMI most probably type II from CHF; cath reveals patent RCA stent and mild nonobstructive CAD. -Hyponatremia hypovolemic on normal saline and repeat blood work in the AM. -chronic kidney disease stage II-IIIb -Chronic hypercapnic respiratory failure secondary to COPD -Congestive failure chronic diastolic function with acute exacerbation -Severe pulmonary hypertension and cor pulmonale -Hyperlipidemia -Hypothyroidism DVT prophylaxis: Resumed on eliquis. Full Code
[2024-01-21 10:06] LABS: Anisocytosis Moderate; HCT 33.4 % (34.0-46.0); HGB 10.1 gm/dL (11.4-16.0); Hypochromasia Marked; MCH 22.7 pg (25.0-35.0); MCHC 30.1 g/dL (31.0-37.0); MCV 75.5 fL (80.0-100.0); Mean Platelet Volume 6.7; Microcytosis Marked; RBC 4.42 m/uL (3.80-5.40); RDW 23.2 % (11.5-15.5)
[2024-01-21] MEDS ORDERED: DEXTROSE 50% SYRINGE 50 ML IVP PRN ×2 (10:09)
[2024-01-21 10:14] LABS: ABG Base Excess 2.4 mmol/L; ABG HCO3 27 mmol/L (21-25); ABG Oxygen Saturation 94.2 % (94-97); ABG PCO2 40 mmHg (35-45); ABG PH 7.43 (7.35-7.45); ABG PO2 72 mmHg (83-108); ABG TCO2 28 mmol/L (19-24); Allen Test Performed? Yes
[2024-01-21 10:16] LABS: African American GFR (CKD) 48 (>60 ml/min/1.73 sqM); Anion Gap 8 mmol/L; Blood Urea Nitrogen 71 mg/dL (7-17); Calcium 9.4 mg/dL (8.4-10.2); Carbon Dioxide 25 mmol/L (22-30); Chloride 95 mmol/L (98-107); Glucose 110 mg/dL (74-99); Non-African American GFR(CKD) 41 (>60 ml/min/1.73 sqM); Sodium 128 mmol/L (137-145)
[2024-01-21 10:23] LABS: Platelet Count 73 k/uL (150-450)
[2024-01-21 10:41] LABS: NT-Pro-B-Type Natriuretic Pept 29200 pg/mL
[2024-01-21 10:51] LABS: Neutrophils % (M) 83 %; Nucleated Red Blood Cells 4 /100 WBC (0-0); Total Cells Counted 100
[2024-01-21 10:52] LABS: Monocytes # (M) 0.88 k/uL (0-1.0); Neutrophils # (M) 14.53 k/uL (1.3-7.7); Ovalocytes Present; Polychromasia Present; WBC 17.5 k/uL (3.8-10.6)
[2024-01-21 10:53] LABS: RBC Fragments Present
[2024-01-21] MEDS: methylPREDNISolone SOD SUCCI 125 MG/2 ML VIAL IV SCH (11:50)
[2024-01-21] MEDS: INSULIN ASPART (NovoLOG) 100 UNIT/ML VIAL SQ SCH (11:55)
[2024-01-21 11:58] LABS: Glucose,Whole Blood 123 mg/dL (70-110)
--- NOTE | 2024-01-21 12:15 | P.CNPUL ---
History of Present Illness Consult date: 01/21/24 Reason for consult: dyspnea History of present illness: On 01/21/2024, the patient is being seen in consultation for worsening shortness of breath. The patient is known to have COPD and she has chronic hypoxic respiratory failure maintained on O2 at 2 L/min nasal cannula on outpatient basis. She is also known to have coronary artery disease, sick sinus syndrome/chronic atrial fibrillation and the patient is a permanent biventricular pacemaker in place and the patient has been maintained on anticoagulation with Eliquis. She also has diastolic heart failure with secondary pulmonary hypertension. [facility] and the patient was found to have a little LV ejection fraction of 60 to 65%, severe pulm hypertension, PA pressure estimated to be around 74. Moderate MR, calcified mitral valve, severe LA dilatation. In any rate, the patient is coming into the hospital because of worsening shortness of breath. She was admitted to the hospital on 01/15/2024. Since her admission, the patient has been subjected to diuretics and the patient remains on Bumex 1 mg IV twice a day. She was also being treated for COPD exacerbation and she is currently on DuoNeb nebulized treatments [id number] and IV Solu-Medrol. She is also on empiric antibiotic coverage with IV Rocephin. Oxygenation is stable and the patient is currently on 4 L of oxygen by nasal cannula. Hemodynamically stable. Chest x-ray most recent of which was done on 01/20/2024 was consistent still with cardiomegaly and pulmonary vascular congestion and CHF and the patient continues to produce adequate urine output. She has a Bautista catheter in place. Fluid balance remains -700 cc over the past 24 hours. Cardi ologist on the case. Noted her proBNP level at time of admission was 25,500, her most recent blood work show a WBC count of 17.5 with a hemoglobin 7.1 and a platelet count of 73. Her BUN is at 71 with a creatinine of 1.2. Sodium levels at 128. Blood gases done on 36% FiO2 showed a pH of 7.4 with a pCO2 of 40 and pO2 of 72. Review of Systems CONSTITUTIONAL: Denies any recent significant weight loss or weight gain. EYES: Denies change in vision. EARS, NOSE, MOUTH, THROAT: Denies headaches, denies sore throat. CARDIOVASCULAR: See HPI RESPIRATORY: See HPI GASTROINTESTINAL: Denies change in appetite, abdominal pain, nausea and vomiting, or diarrhea GENITOURINARY: Denies hematuria, denies infections. MUSKULOSKELETAL: Denies pain, denies swelling. INTEGUMENTARY: Denies rash, denies eczema. NEUROLOGICAL: Denies recent memory loss, no recent seizure activity. PSYCHIATRIC: Denies anxiety, denies depression. HEMATOLOGIC/LYMPHATIC: Denies anemia, denies enlarged lymph node Constitutional: Reports fatigue, Reports weakness Eyes: denies as per HPI, denies blurred vision, denies bulging eye, denies decreased vision, denies diplopia, denies discharge, denies dry eye, denies irritation, denies itching, denies pain, denies photophobia, denies loss of peripheral vision, denies loss of vision, denies tunnel vision/blind spots Ears: deny: decreased hearing, ear discharge, earache, tinnitus Ears, nose, mouth and throat: Reports as per HPI Breasts: absent: as per HPI, change in shape, gynecomastia, masses, nipple discharge, pain, skin changes, swelling Breasts: Reports as per HPI Cardiovascular: Reports decreased exercise tolerance, Reports dyspnea on exertion Respiratory: Reports congestion, Reports dyspnea, Reports home oxygen Gastrointestinal: Reports as per HPI Genitourinary: Reports as per HPI Menstruation: Reports as per HPI Musculoskeletal: Reports as per HPI Musculoskeletal: bilateral: ankle swelling, absent: ankle pain, ankle stiffness, as per HPI, elbow pain, elbow stiffness, elbow swelling, foot pain, foot stiffness, foot swelling, hand pain, hand stiffness, hand swelling, hip pain, hip stiffness, hip swelling, knee pain, knee stiffness, knee swelling, shoulder pain, shoulder stiffness, shoulder swelling, wrist pain, wrist stiffness, wrist swelling Integumentary: Reports as per HPI Neurological: Reports as per HPI Psychiatric: Reports as per HPI Endocrine: Reports as per HPI Hematologic/Lymphatic: Reports as per HPI Allergic/Immunologic: Reports as per HPI Past Medical History Past Medical History: Atrial Fibrillation, Coronary Artery Disease (CAD), Cancer, COPD, Eye Disorder, Hearing Disorder / Deafness, Myocardial Infarction ([place]), Osteoarthritis (OA), Pneumonia, Thyroid Disorder Additional Past Medical History / Comment(s): Gout, hiatal hernia, Macular Degeneration, Skin Cancer, degenerative disc disease, osteoporosis. UTI 07/01/19. Last Myocardial Infarction Date:: 2011 History of Any Multi-Drug Resistant Organisms: None Reported Past Surgical History: Cardiac Ablation, Cholecystectomy, Heart Catheterization With Stent, Hysterectomy, Orthopedic Surgery, Pacemaker, Tonsillectomy Additional Past Surgical History / Comment(s): Right shoulder surgery, left wrist surgery. Thyroid Nodule removed, sylvia Cataracts, LOOP RECORDER-11/23/17; CHRIO ABLATION 03/08/18 WITH CARDIOVERSION Past Anesthesia/Blood Transfusion Reactions: No Reported Reaction Date of Last Stent Placement:: 2011 Type of Cardiac Device: Permanent Pacemaker Device Placement Date:: 07/2019 Past Psychological History: No Psychological Hx Reported Smoking Status: Former smoker Past Alcohol Use History: None Reported Additional Past Alcohol Use History / Comment(s): started smoking at age 15(1961) and quit 2006, smoked 2ppd Past Drug Use History: None Reported - Past Family History Mother Family Medical History: Cancer, Congestive Heart Failure (CHF), Myocardial Infarction ([place]), Pneumonia, Pulmonary Embolus Additional Family Medical History / Comment(s): breast CA Father Family Medical History: CVA/TIA, Myocardial Infarction ([place]) Medications and Allergies Home Medications Medication Instructions Recorded Confirmed Type Vit C/E/Zn/Coppr/Lutein/Zeaxan 1 cap PO BID 03/02/15 01/15/24 History [Preservision Areds 2 Softgel] Atorvastatin [Lipitor] 40 mg PO HS #30 tab 03/04/15 01/15/24 Rx allopurinoL [Zyloprim] 100 mg PO BID 10/22/18 01/15/24 History Fluticasone/Umeclidin/Vilanter 1 puff INHALATION RT-DAILY 07/01/19 01/15/24 History [John Jaureguita 100-62.5-25] Aspirin [Enoree Aspirin EC] 81 mg PO DAILY 08/09/19 01/15/24 History Cholecalciferol [Vitamin D3 (25 25 mcg PO DAILY 05/23/20 01/15/24 History Mcg = 1000 Iu)] Ipratropium-Albuterol Nebulize 3 ml INHALATION RT-QID 10/28/21 01/15/24 History [Duoneb 0.5 mg-3 mg/3 ml Soln] Apixaban [Eliquis] 5 mg PO BID 04/09/23 01/15/24 History Sodium Bicarbonate 325 mg PO BID 04/09/23 01/15/24 History calcitrioL 0.25 mcg PO MOWEFR 04/09/23 01/15/24 History Albuterol Sulfate [Ventolin HFA] 2 puff INHALATION RT-QID PRN 7 04/13/23 01/15/24 Rx Days #1 each Levothyroxine Sodium [Synthroid] 50 mcg PO DAILY 07/13/23 01/15/24 History Metoprolol Succinate (ER) [Toprol 50 mg PO DAILY #30 tab 07/18/23 01/15/24 Rx XL] Cranberry Fruit Extract [Cranberry] 500 mg PO BID 12/31/23 01/15/24 History Empagliflozin [Jardiance] 10 mg PO DAILY 12/31/23 01/15/24 History Gabapentin [Neurontin] 100 mg PO BID 12/31/23 01/15/24 History Omeprazole 20 mg PO DAILY 12/31/23 01/15/24 History Potassium Chloride ER [K-Dur 10] 10 meq PO DAILY 12/31/23 01/15/24 History ALPRAZolam [Xanax] 0.25 mg PO DAILY PRN 01/15/24 01/15/24 History Levofloxacin [Levaquin] 500 mg PO DAILY 01/15/24 01/15/24 History Torsemide [Demadex] 40 mg PO DAILY 01/15/24 01/15/24 History predniSONE See Taper PO DIRECTED 01/15/24 01/15/24 History Allergies Allergy/AdvReac Type Severity Reaction Status Date / Time codeine Allergy Itching Verified 01/15/24 05:57 Physical Exam Vitals: Vital Signs Temp Pulse Pulse Resp BP Pulse Ox 01/21/24 09:22 60 18 01/21/24 08:37 60 18 148/79 94 L 01/21/24 08:14 64 01/21/24 08:00 91 L 01/21/24 07:58 61 01/21/24 04:41 60 01/21/24 04:31 60 01/21/24 03:25 97.7 F 58 L 18 126/78 93 L 01/21/24 01:33 65 18 01/21/24 00:50 64 01/21/24 00:34 60 01/20/24 23:25 97.4 F L 65 18 123/75 93 L 01/20/24 21:07 75 18 01/20/24 20:58 74 18 01/20/24 20:00 97.6 F 62 18 135/61 92 L 01/20/24 16:04 58 L 18 130/69 89 L 01/20/24 15:12 68 01/20/24 15:01 72 01/20/24 14:17 69 18 01/20/24 12:12 68 01/20/24 12:01 69 01/20/24 11:58 69 139/77 Intake and Output 01/20/24 01/21/24 01/21/24 22:59 06:59 14:59 Intake Total 250 10 Output Total 600 600 Balance -350 -590 Intake: IV 10 10 Invasive Line 4 10 10 Oral 240 Output: Urine 600 600 Other: Voiding Method Indwelling Catheter Indwelling Catheter Indwelling Catheter The patient appeared quite debilitated, weak, body mass index of 32 and the patient currently is on 40 of oxygen by nasal cannula Head exam is unremarkable. No scleral icterus or corneal arcus noted. Neck is positive jugular venous distension, thyromegaly, or carotid bruits. Carotid upstrokes are brisk bilaterally. Lungs are diminished breath sound bilateral lung with bibasilar crackles and few scattered expiratory wheezes Cardiac exam reveals the PMI to be normally sized and situated. Rhythm is irregular first and second heart sounds normal. Soft diastolic murmur, rubs or gallops. Abdominal exam reveals normal bowel sounds, no masses, no organomegaly and no aortic enlargement. Extremities are showing trace edema lower extremities, and both femoral and pedal pulses are normal. Examination of the skin revealed no evidence of significant rashes, suspicious appearing nevi or other concerning lesions. Neurologically, the patient is awake and alert and the patient does not have any focal neurological deficit. Cranial nerves are essentially intact. Results - Laboratory Findings CBC and BMP: 01/21/24 09:36 01/21/24 09:36 PT/INR, D-dimer PT 12.5 sec (10.0-12.5) 01/16/24 07:28 INR 1.2 (<1.2) H 01/16/24 07:28 Abnormal lab findings: Abnormal Labs 01/15/24 01/15/24 01/15/24 06:31 06:31 06:31 WBC 18.8 H Hgb MCV 73.6 L MCH 22.4 L MCHC 30.4 L RDW 21.2 H Plt Count 129 L Neutrophils # 15.4 H Neutrophils # (Manual) Monocytes # 1.1 H Metamyelocytes # (Man) Myelocytes # (Manual) PT INR 1.2 H APTT Sodium 133 L Chloride BUN 70 H Creatinine 1.27 H Glucose POC Glucose (mg/dL) Total Bilirubin 1.4 H AST 67 H Troponin I Procalcitonin Urine Protein 01/15/24 01/15/24 01/15/24 06:31 09:20 13:04 WBC Hgb MCV MCH MCHC RDW Plt Count Neutrophils # Neutrophils # (Manual) Monocytes # Metamyelocytes # (Man) Myelocytes # (Manual) PT INR APTT Sodium Chloride BUN Creatinine Glucose POC Glucose (mg/dL) Total Bilirubin AST Troponin I 0.068 H* 0.084 H* 0.096 H* Procalcitonin Urine Protein 01/15/24 01/15/24 01/15/24 14:57 14:57 23:11 WBC 17.1 H Hgb 11.2 L MCV 74.3 L MCH 22.1 L MCHC 29.8 L RDW 21.6 H Plt Count 108 L Neutrophils # 14.0 H Neutrophils # (Manual) Monocytes # 1.1 H Metamyelocytes # (Man) Myelocytes # (Manual) PT 12.9 H INR 1.2 H APTT 81.9 H Sodium Chloride BUN Creatinine Glucose POC Glucose (mg/dL) Total Bilirubin AST Troponin I Procalcitonin Urine Protein 01/16/24 01/16/24 01/16/24 02:33 07:28 07:28 WBC 18.9 H Hgb 11.1 L MCV 73.9 L MCH 22.2 L MCHC 30.0 L RDW 21.7 H Plt Count 101 L Neutrophils # 15.6 H Neutrophils # (Manual) Monocytes # Metamyelocytes # (Man) Myelocytes # (Manual) PT INR 1.2 H APTT Sodium Chloride BUN Creatinine Glucose POC Glucose (mg/dL) Total Bilirubin AST Troponin I Procalcitonin Urine Protein Trace H 01/16/24 01/16/24 01/17/24 07:28 07:28 07:14 WBC Hgb MCV MCH MCHC RDW Plt Count Neutrophils # Neutrophils # (Manual) Monocytes # Metamyelocytes # (Man) Myelocytes # (Manual) PT INR APTT 62.7 H Sodium 133 L 131 L Chloride 96 L BUN 69 H 67 H Creatinine 1.49 H 1.35 H Glucose 100 H 110 H POC Glucose (mg/dL) Total Bilirubin AST Troponin I Procalcitonin Urine Protein 01/17/24 01/18/24 01/18/24 07:14 06:02 06:04 WBC 17.4 H Hgb 10.6 L MCV 75.0 L MCH 22.7 L MCHC 30.3 L RDW 22.3 H Plt Count 81 L Neutrophils # Neutrophils # (Manual) 15.30 H Monocytes # Metamyelocytes # (Man) 0.35 H Myelocytes # (Manual) 0.17 H PT INR APTT 55.6 H Sodium Chloride BUN Creatinine Glucose POC Glucose (mg/dL) 117 H Total Bilirubin AST Troponin I Procalcitonin Urine Protein 01/18/24 01/18/24 01/19/24 06:04 06:04 07:05 WBC Hgb MCV MCH MCHC RDW Plt Count Neutrophils # Neutrophils # (Manual) Monocytes # Metamyelocytes # (Man) Myelocytes # (Manual) PT INR APTT Sodium 129 L 129 L Chloride 96 L 95 L BUN 68 H 63 H Creatinine 1.29 H Glucose 101 H 128 H POC Glucose (mg/dL) Total Bilirubin AST Troponin I Procalcitonin 0.67 H Urine Protein - Diagnostic Findings Chest x-ray: image reviewed Assessment and Plan Plan: Acute on chronic hypoxemic respiratory failure, currently on 4 L/min nasal cannula, and the decompensated respiratory status is related to CHF as the patient has signs of fluid overload, pulmonary edema and she has an elevated pro BNP level. At the same time, the patient has chronic hypoxic respiratory failure and she is typically maintained on oxygen 2 L/min nasal cannula related to COPD and CHF. Her COPD may be also a mild exacerbation the patient has been appropriately placed on DuoNeb and IV Solu-Medrol. Limited troponin leak, nonspecific, without any acute EKG changes. EKG is showing a paced rhythm, Cardiac catheterization was done on 01/16/2024 showed patent stent to RCA and mild nonobstructive CAD. End-diastolic pressure was 12- 14. No significant gradient across the aortic valve. Diastolic heart failure with preserved LV function severe pulmonary hypertens ion. COPD, currently inactive and stable History of RSV infection with secondary COPD exacerbation has occurred back in March 2023 Nonspecific mediastinal lymphadenopathy without any significant metabolic activity based on the PET scan that was done in November 2021 Chronic hypoxemic respiratory failure, normally maintained on 2 L at bedtime, secondary to above Moderate to severe pulmonary hypertension secondary to above Coronary artery disease, with history of previous PCI/stent, stents are patent based on the cardiac catheterization from 01/16/2024 History of sick sinus syndrome and chronic atrial fibrillation, status post permanent biventricular pacemaker implantation, and chronically anticoagulated on Eliquis Hypothyroidism Obesity, with a BMI 32.2 kg/m Remote ex smoker Hyponatremia, diuretic induced Plan: Titrate oxygen flow to maintain saturation above 90% Wean down FiO2 as tolerated currently on 4 L Continue IV Bumex and Aldactone Continue metoprolol Continue Farxiga Continue bronchodilators Continue steroids and the patient remains on IV Solu-Medrol Continue anticoagulation with Eliquis Repeat echocardiogram, most recent echocardiogram was done and March 2023 showed a preserved LV function with an ejection fraction of 60 to 65%, severe pulm hypertension with a PA pressure of 74 and moderate degree of mitral regurgitation. Will continue to follow
[2024-01-21 16:25] LABS: Glucose,Whole Blood 118 mg/dL (70-110)
[2024-01-21 20:06] LABS: Glucose,Whole Blood 151 mg/dL (70-110)
--- NOTE | 2024-01-22 01:18 | P.PN ---
Subjective Progress Note Date: 01/21/24 78-year-old female came in with complaints of chest pain on the left side of the chest radiating to the entire precordium on the left side. Patient does have history of COPD and also has chronic diastolic dysfunction patient was complaining of some orthopnea chest x-ray is consistent with pulmonary edema although patient does not have any significant pedal edema. Patient usually takes 40 mg of torsemide at home patient had a recent hospitalization at the time she was treated for COPD exacerbation, hyponatremia patient was given Samsca presents with serum sodium is 133 patient has serum creatinine of 1.27 does have chronic kidney disease with baseline creatinine around 1.3-1.5. This may be secondary to cardiorenal syndrome patient also has severe pulmonary hypertension. Patient had history of coronary disease with stent in 2011 troponins are slightly elevated to 0.068 and 0.084. Patient's BNP is 25,000 and her previous BNP was 11,200. Patient is presently on 4 L of oxygen patient does not use oxygen at home unsure how many liters she uses at home Patient remains on IV Rocephin and azithromycin; reports feeling weak and lethargic this afternoon -- We will plan to continue with current management for another 24 hours; possible discharge in next 24 hours if remains stable 01/21/2024 Patient is seen and evaluated in room at bedside and discussed with nursing staff; continues to desaturate easily with minimal activity; seems to be in mild respiratory distress even at rest above -Vital signs are reviewed; patient is currently on O2 at 4 L per nasal cannula with O2 saturation above 92% but dropping down to 88% with activity -- We will start patient on IV Solu-Medrol 60 mg every 6 hours along with DuoNeb nebulizer treatments 4 times daily and as needed; consult pulmonary -- Patient remains fluid overloaded; will switch patient to IV diuretic therapy and monitor strict ABAD's and daily weights; further recommendations pending clinical course Objective - Vital Signs Vital signs: Vital Signs Temp 97.7 F 01/21/24 03:25 Pulse 60 01/21/24 08:37 Resp 18 01/21/24 08:37 BP 148/79 01/21/24 08:37 Pulse Ox 94 L 01/21/24 08:37 FiO2 Intake & Output 01/20/24 01/21/24 01/21/24 18:59 06:59 18:59 Intake Total 740 20 Output Total 900 600 Balance -160 -580 Intake: IV 20 20 Invasive Line 4 20 20 Oral 720 Output: Urine 900 600 Other: Voiding Method Indwelling Catheter Indwelling Catheter - Exam GENERAL: The patient is alert and oriented x3, not in any acute distress. Well developed, well nourished. HEENT: Pupils are round and equally reacting to light. EOMI. No scleral icterus. No conjunctival pallor. Normocephalic, atraumatic. No pharyngeal erythema. No thyromegaly. CARDIOVASCULAR: S1 and S2 present. No murmurs, rubs, or gallops. PULMONARY: Slightly diminished air entry to bilateral lung moreno no wheezing or crackles were appreciated ABDOMEN: Soft, nontender, nondistended, normoactive bowel sounds. No palpable organomegaly. MUSCULOSKELETAL: No joint swelling or deformity. EXTREMITIES: No cyanosis, clubbing, or pedal edema. NEUROLOGICAL: Gross neurological examination did not reveal any focal deficits. SKIN: No rashes. - Labs CBC & Chem 7: 01/21/24 09:36 01/21/24 09:36 Assessment and Plan Assessment: Assessment and plan Acute on chronic hypoxic respiratory failure: Secondary to CHF exacerbation transition to oral Bumex -Acute COPD exacerbation started on course of IV ceftriaxone and oral azithromycin, oral prednisone. -Elevated troponins possibility of NSTEMI most probably type II from CHF; cath reveals patent RCA stent and mild nonobstructive CAD. -Hyponatremia hypovolemic on normal saline and repeat blood work in the AM. -chronic kidney disease stage II-IIIb -Chronic hypercapnic respiratory failure secondary to COPD -Congestive failure chronic diastolic function with acute exacerbation -Severe pulmonary hypertension and cor pulmonale -Hyperlipidemia -Hypothyroidism DVT prophylaxis: Resumed on eliquis. Full Code
[2024-01-22 06:21] LABS: Glucose,Whole Blood 145 mg/dL (70-110)
[2024-01-22 08:01] LABS: Anisocytosis Moderate; HCT 33.6 % (34.0-46.0); HGB 10.3 gm/dL (11.4-16.0); Hypochromasia Moderate; MCH 22.4 pg (25.0-35.0); MCHC 30.6 g/dL (31.0-37.0); MCV 73.4 fL (80.0-100.0); Mean Platelet Volume 7.7; Microcytosis Marked; Poikilocytosis Slight; RBC 4.57 m/uL (3.80-5.40); RDW 23.4 % (11.5-15.5)
[2024-01-22 08:03] LABS: Platelet Count 73 k/uL (150-450)
[2024-01-22 08:23] LABS: African American GFR (CKD) 48 (>60 ml/min/1.73 sqM); Anion Gap 14 mmol/L; Blood Urea Nitrogen 81 mg/dL (7-17); Calcium 9.7 mg/dL (8.4-10.2); Carbon Dioxide 20 mmol/L (22-30); Chloride 97 mmol/L (98-107); Glucose 119 mg/dL (74-99); Non-African American GFR(CKD) 41 (>60 ml/min/1.73 sqM); Potassium 4.2 mmol/L (3.5-5.1); Sodium 131 mmol/L (137-145)
[2024-01-22 08:51] LABS: Neutrophils % (M) 88 %; Nucleated Red Blood Cells 7 /100 WBC (0-0); Total Cells Counted 100
[2024-01-22 08:56] LABS: Polychromasia Present
[2024-01-22 09:07] LABS: Band Neutrophils % 1 %
[2024-01-22 09:17] LABS: Lymphocytes # (M) 0.77 k/uL (1.0-4.8); Monocytes # (M) 0.92 k/uL (0-1.0); WBC 15.3 k/uL (3.8-10.6)
[2024-01-22 11:44] LABS: Glucose,Whole Blood 141 mg/dL (70-110)
--- NOTE | 2024-01-22 14:12 | P.PN ---
Subjective Progress Note Date: 01/22/24 Principal diagnosis: Acute on chronic hypoxic respiratory failure, multifactorial On 01/21/2024, the patient is being seen in consultation for worsening shortness of breath. The patient is known to have COPD and she has chronic hypoxic respiratory failure maintained on O2 at 2 L/min nasal cannula on outpatient basis. She is also known to have coronary artery disease, sick sinus syndrome/chronic atrial fibrillation and the patient is a permanent biventricular pacemaker in place and the patient has been maintained on anticoagulation with Eliquis. She also has diastolic heart failure with secondary pulmonary hypertension. The most recent echocardiogram on this patient was from 04/10/2023 and the patient was found to have a little LV ejection fraction of 60 to 65%, severe pulm hypertension, PA pressure estimated to be around 74. Moderate MR, calcified mitral valve, severe LA dilatation. In any rate, the patient is coming into the hospital because of worsening shortness of breath. She was admitted to the hospital on 01/15/2024. Since her admission, the patient has been subjected to diuretics and the patient remains on Bumex 1 mg IV twice a day. She was also being treated for COPD exacerbation and she is currently on DuoNeb nebulized treatments [id number] and IV Solu-Medrol. She is also on empiric antibiotic coverage with IV Rocephin. Oxygenation is stable and the patient is currently on 4 L of oxygen by nasal cannula. Hemodynamically stable. Chest x-ray most recent of which was done on 01/20/2024 was consistent still with cardiomegaly and pulmonary vascular congestion and CHF and the patient continues to produce adequate urine output. She has a Bautista catheter in place. Fluid balance remains -700 cc over the past 24 hours. Seismograph Observer on the case. Noted her proBNP level at time of admission was 25,500, her most recent blood work show a WBC count of 17.5 with a hemoglobin 7.1 and a platelet count of 73. Her BUN is at 71 with a creatinine of 1.2. Sodium levels at 128. Blood gases done on 36% FiO2 showed a pH of 7.4 with a pCO2 of 40 and pO2 of 72. Patient was seen today on 01/22/2024, patient is doing relatively well, on di uretics, she is also on bronchodilators, and steroids, she was seen yesterday by Dr. Charles on consultation, reviewed his recommendations, and I have recommended no change to his recommendation at this point. Patient has been in the hospital for almost a week, and we were consulted yesterday. Improving, and the plan is to continue diuretics steroids and bronchodilators for now.WBC count is 15.3 hemoglobin is 10.3 sodium is 131 BUN is 81 creatinine 1.25 Objective - Vital Signs Vital signs: Vital Signs Temp 97.4 F L 01/22/24 09:15 Pulse 64 01/22/24 12:09 Resp 16 01/22/24 09:15 BP 110/67 01/22/24 09:15 Pulse Ox 97 01/22/24 09:15 FiO2 Intake & Output 01/21/24 01/22/24 01/22/24 18:59 06:59 18:59 Intake Total 120 240 Output Total 475 Balance 120 -475 240 Weight 71.6 kg Intake: Oral 120 240 Output: Urine 475 Other: Voiding Method Indwelling Catheter Indwelling Catheter Indwelling Catheter - Exam General reveals 78-year-old female in no distress, on nasal cannula Head: Atraumatic, normocephalic HEENT: PERRLA, EOMI, nonicteric, no neck masses no thyromegaly Lungs: Diminished breath sounds at the bases no crackles rhonchi or wheezes Cardiac: Distant S1-S2, irregular, no S3 gallop, no murmur Abdomen: Soft nontender no megaly no rebound no guarding Extremities: Trace of bipedal edema no cyanosis Neurologic alert oriented x 3 no gross focal deficit Psychiatric: Normal mood affect and no mental status examination Skin: No rash - Labs CBC & Chem 7: 01/22/24 06:52 01/22/24 06:52 Labs: Abnormal Lab Results - Last 24 Hours (Table) 01/21/24 01/21/24 01/21/24 Range/Units 09:36 16:24 20:02 WBC (3.8-10.6) k/uL Hgb (11.4-16.0) gm/dL Hct (34.0-46.0) % MCV (80.0-100.0) fL MCH (25.0-35.0) pg MCHC (31.0-37.0) g/dL RDW (11.5-15.5) % Plt Count (150-450) k/uL Neutrophils # (Manual) (1.3-7.7) k/uL Lymphocytes # (Manual) (1.0-4.8) k/uL Nucleated RBCs (0-0) /100 WBC Sodium (137-145) mmol/L Chloride (98-107) mmol/L Carbon Dioxide (22-30) mmol/L BUN (7-17) mg/dL Creatinine (0.52-1.04) mg/dL Glucose (74-99) mg/dL POC Glucose (mg/dL) 118 H 151 H (70-110) mg/dL Procalcitonin 0.78 H (0.02-0.50) ng/mL 01/22/24 01/22/24 01/22/24 Range/Units 06:19 06:52 06:52 WBC 15.3 H (3.8-10.6) k/uL Hgb 10.3 L (11.4-16.0) gm/dL Hct 33.6 L (34.0-46.0) % MCV 73.4 L (80.0-100.0) fL MCH 22.4 L (25.0-35.0) pg MCHC 30.6 L (31.0-37.0) g/dL RDW 23.4 H (11.5-15.5) % Plt Count 73 L (150-450) k/uL Neutrophils # (Manual) 13.60 H (1.3-7.7) k/uL Lymphocytes # (Manual) 0.77 L (1.0-4.8) k/uL Nucleated RBCs 7 H (0-0) /100 WBC Sodium 131 L (137-145) mmol/L Chloride 97 L (98-107) mmol/L Carbon Dioxide 20 L (22-30) mmol/L BUN 81 H (7-17) mg/dL Creatinine 1.25 H (0.52-1.04) mg/dL Glucose 119 H (74-99) mg/dL POC Glucose (mg/dL) 145 H (70-110) mg/dL Procalcitonin (0.02-0.50) ng/mL 01/22/24 Range/Units 11:42 WBC (3.8-10.6) k/uL Hgb (11.4-16.0) gm/dL Hct (34.0-46.0) % MCV (80.0-100.0) fL MCH (25.0-35.0) pg MCHC (31.0-37.0) g/dL RDW (11.5-15.5) % Plt Count (150-450) k/uL Neutrophils # (Manual) (1.3-7.7) k/uL Lymphocytes # (Manual) (1.0-4.8) k/uL Nucleated RBCs (0-0) /100 WBC Sodium (137-145) mmol/L Chloride (98-107) mmol/L Carbon Dioxide (22-30) mmol/L BUN (7-17) mg/dL Creatinine (0.52-1.04) mg/dL Glucose (74-99) mg/dL POC Glucose (mg/dL) 141 H (70-110) mg/dL Procalcitonin (0.02-0.50) ng/mL Assessment and Plan Assessment: Impression: Acute on chronic hypoxemic respiratory failure, patient has a combination of COPD and chronic diastolic congestive heart failure. Acute on chronic diastolic heart failure with preserved LV function severe pulmonary hypertension. COPD, currently inactive and stable Nonspecific mediastinal lymphadenopathy without any significant metabolic activity based on the PET scan that was done in November 2021 Chronic hypoxemic respiratory failure, normally maintained on 2 L at bedtime, secondary to above Moderate to severe pulmonary hypertension secondary to above Coronary artery disease, with history of previous PCI/stent, stents are patent based on the cardiac catheterization from 01/16/2024 History of sick sinus syndrome and chronic atrial fibrillation, status post permanent biventricular pacemaker implantation, and chronically anticoagulated on Eliquis Hypothyroidism Obesity, with a BMI 32.2 kg/m Ex-smoker Hyponatremia, diuretic induced, improved Recommendation: Continue oxygen and titrate accordingly Continue bronchodilators and steroids Continue Bumex and Aldactone Continue farXIGA continue to monitor electrolytes and renal profile on a daily basis Continue Eliquis Will continue to follow Time with Patient: Less than 30
[2024-01-22 16:24] LABS: Glucose,Whole Blood 159 mg/dL (70-110)
--- NOTE | 2024-01-22 19:58 | CT ---
EXAMINATION TYPE: CT chest wo con DATE OF EXAM: 01/22/2024 5:59 PM COMPARISON: None. CLINICAL INDICATION: Female, 78 years old with history of sob, lung nodules, RASHAD TECHNIQUE: Axial images were obtained at 5 mm thick sections. Reconstructed images are reviewed on [employer] computer in the coronal plane. Contrast used: mL of , (none if empty) Oral contrast used: (none if empty) CT DLP: 327.3 mGycm, Automated exposure control for dose reduction was used. FINDINGS: Thyroid is limited in visualization. There is a consolidation in the posterior medial left lower lobe. Underlying mass should be considere d. Findings can be related to pneumonia There is a small right pleural effusion There is a 1.7 cm pretracheal node. Small periaortic arch lymphadenopathy is present. There is a large left infrahilar adenopathy. Lack of intravenous contrast limits the evaluation The ascending aorta diameter at the level of the main pulmonary artery is 3.6 cm. The main pulmonary artery diameter at the bifurcation is 3.2 cm. Moderate coronary artery calcification is present. Limited CT sections are obtained through the upper abdomen. Right adrenal gland is enlarged measuring 2.3 cm transverse. Small amount peripheral calcification may be present. IMPRESSION: 1. Suspected right lower lobe masses with right infrahilar and mediastinal adenopathy. Evaluation is somewhat limited lacking oral contrast. 2. Small right pleural effusion. 3. Enlarged right adrenal gland. Metastasis should be considered [facility], , 01/22/2024 7:56 PM
[2024-01-22 20:04] LABS: Glucose,Whole Blood 136 mg/dL (70-110)
[2024-01-22] MEDS: NA PHOS,M-B/NA PHOS,DI-BA 133 ML ENEMA RECTAL STA (20:59)
--- NOTE | 2024-01-23 01:00 | PN ---
PROGRESS NOTE DATE OF SERVICE: 01/22/2024 SUBJECTIVE: This is a 78-year-old woman who was admitted with chest pain and features of CHF. She is still short of breath and the chest test showed multiple abnormalities. The patient also had multiple lung nodules also in the previous CT scan of chest done last year. There is no history of any fever, rigors, or chills. PAST MEDICAL HISTORY: Reviewed. REVIEW OF SYSTEMS: A 14-point review is negative except as mentioned earlier. CURRENT MEDICATIONS: Reviewed include DuoNeb. PHYSICAL EXAMINATION: VITAL SIGNS: Pulse is 60, blood pressure 110/67, respirations 16. CHEST: A few scattered rhonchi and crackles. ABDOMEN: Soft. LEGS: Minimal edema. NERVOUS SYSTEM: Nonfocal. LABORATORY DATA: WBC 15.3, rest of the labs are reviewed. ASSESSMENT: 1. Shortness of breath, possibly secondary to congestive heart failure acute exacerbation, also chronic obstructive pulmonary disease acute exacerbation. 2. History of multiple lung nodules, rule out malignancy. 3. Elevated troponin, possibly type 2 [id number]-elevation myocardial infarction. 4. Hyponatremia. 5. Multiple complex medical issues. RECOMMENDATIONS: Recommend to continue current management and continue symptomatic treatment. Continue with diuretics, bronchodilators. Also, recommend CT scan of the chest without contrast to evaluate for the nodules and resume the home medications including anticoagulation. Recommend repeat labs. Increase ambulation. Guarded prognosis because of multiple complex medical issues. Further recommendations to follow. MMODL / IJN: [id number] /
[2024-01-23 01:07] LABS: Anisocytosis Moderate; HCT 32.6 % (34.0-46.0); HGB 9.9 gm/dL (11.4-16.0); Hypochromasia Marked; MCH 22.8 pg (25.0-35.0); MCHC 30.4 g/dL (31.0-37.0); MCV 75.2 fL (80.0-100.0); Mean Platelet Volume 7.2; Microcytosis Marked; Poikilocytosis Slight; RBC 4.33 m/uL (3.80-5.40); RDW 23.8 % (11.5-15.5); WBC 19.6 k/uL (3.8-10.6)
[2024-01-23 01:10] LABS: Platelet Count 104 k/uL (150-450)
[2024-01-23 06:01] LABS: Glucose,Whole Blood 133 mg/dL (70-110)
[2024-01-23 06:18] LABS: Anisocytosis Moderate; HCT 32.8 % (34.0-46.0); HGB 9.6 gm/dL (11.4-16.0); Hypochromasia Marked; MCH 22.5 pg (25.0-35.0); MCHC 29.2 g/dL (31.0-37.0); MCV 76.9 fL (80.0-100.0); Mean Platelet Volume 6.9; Microcytosis Moderate; Platelet Count 100 k/uL (150-450); Poikilocytosis Slight; RBC 4.27 m/uL (3.80-5.40); RDW 23.6 % (11.5-15.5)
[2024-01-23 06:36] LABS: African American GFR (CKD) 37 (>60 ml/min/1.73 sqM); Anion Gap 9 mmol/L; Calcium 9.6 mg/dL (8.4-10.2); Carbon Dioxide 22 mmol/L (22-30); Chloride 100 mmol/L (98-107); Glucose 116 mg/dL (74-99); Non-African American GFR(CKD) 32 (>60 ml/min/1.73 sqM); Potassium 4.6 mmol/L (3.5-5.1); Sodium 131 mmol/L (137-145)
[2024-01-23 06:51] LABS: Blood Urea Nitrogen 103 mg/dL (7-17)
[2024-01-23 07:40] LABS: Neutrophils % (M) 93 %; Nucleated Red Blood Cells 8 /100 WBC (0-0); Total Cells Counted 200
[2024-01-23 07:41] LABS: Basophils # (M) 0.18 k/uL (0-0.2); Lymphocytes # (M) 0.74 k/uL (1.0-4.8); Monocytes # (M) 0.74 k/uL (0-1.0); Neutrophils # (M) 17.11 k/uL (1.3-7.7); WBC 18.4 k/uL (3.8-10.6)
[2024-01-23 07:43] LABS: Anisocytosis (M) Present; Poikilocytosis (M) Present; Polychromasia Present
[2024-01-23 11:16] LABS: Glucose,Whole Blood 222 mg/dL (70-110)
[2024-01-23 11:37] LABS: Glucose,Whole Blood 209 mg/dL (70-110)
[2024-01-23 11:49] VITALS: PULSE 60
--- NOTE | 2024-01-23 11:53 | P.NPCON ---
History of Present Illness - Reason for Consult acute renal failure - History of Present Illness patient is a 78-year-old female with history of COPD, coronary artery disease, chronic A. fib who was admitted to the hospital with shortness of breath. Patient was noted to be in volume overload and has been diuresed. Further workup including chest CT showed evidence of right lower lobe masses with adenopathy as well as enlarged right adrenal gland suspicious for metastasis. Serum creatinine was 1.2 on initial admission and increased to 1.5 today. Blood pressure has not been low. Patient has a Bautista catheter and 24-hour urine output documented at 1.3 L. She is currently maintained on IV Bumex. BUN increased to 103 today. Patient was started on IV steroids on 01/21/2024. No sign of active bleeding. Hemoglobin is 9.6 g/dL. Review of Systems as per HPI Past Medical History Past Medical History: Atrial Fibrillation, Coronary Artery Disease (CAD), Cancer, COPD, Eye Disorder, Hearing Disorder / Deafness, Myocardial Infarction (AR), Osteoarthritis (OA), Pneumonia, Thyroid Disorder Additional Past Medical History / Comment(s): Gout, hiatal hernia, Macular Degeneration, Skin Cancer, degenerative disc disease, osteoporosis. UTI 07/01/19. Last Myocardial Infarction Date:: 2011 History of Any Multi-Drug Resistant Organisms: None Reported Past Surgical History: Cardiac Ablation, Cholecystectomy, Heart Catheterization With Stent, Hysterectomy, Orthopedic Surgery, Pacemaker, Tonsillectomy Additional Past Surgical History / Comment(s): Right shoulder surgery, left wrist surgery. Thyroid Nodule removed, sylvia Cataracts, LOOP RECORDER-11/23/17; CHRIO ABLATION 03/08/18 WITH CARDIOVERSION Past Anesthesia/Blood Transfusion Reactions: No Reported Reaction Date of Last Stent Placement:: 2011 Type of Cardiac Device: Permanent Pacemaker Device Placement Date:: 07/2019 Past Psychological History: No Psychological Hx Reported Smoking Status: Former smoker Past Alcohol Use History: None Reported Additional Past Alcohol Use History / Comment(s): started smoking at age 15(1961) and quit 2006, smoked 2ppd Past Drug Use History: None Reported - Past Family History Mother Family Medical History: Cancer, Congestive Heart Failure (CHF), Myocardial Infarction (AR), Pneumonia, Pulmonary Embolus Additional Family Medical History / Comment(s): breast CA Father Family Medical History: CVA/TIA, Myocardial Infarction (AR) Medications and Allergies Home Medications Medication Instructions Recorded Confirmed Type Vit C/E/Zn/Coppr/Lutein/Zeaxan 1 cap PO BID 03/02/15 01/15/24 History [Preservision Areds 2 Softgel] Atorvastatin [Lipitor] 40 mg PO HS #30 tab 03/04/15 01/15/24 Rx allopurinoL [Zyloprim] 100 mg PO BID 10/22/18 01/15/24 History Fluticasone/Umeclidin/Vilanter 1 puff INHALATION RT-DAILY 07/01/19 01/15/24 History [John Ellipta 100-62.5-25] Aspirin [[place] Aspirin EC] 81 mg PO DAILY 08/09/19 01/15/24 History Cholecalciferol [Vitamin D3 (25 25 mcg PO DAILY 05/23/20 01/15/24 History Mcg = 1000 Iu)] Ipratropium-Albuterol Nebulize 3 ml INHALATION RT-QID 10/28/21 01/15/24 History [Duoneb 0.5 mg-3 mg/3 ml Soln] Apixaban [Eliquis] 5 mg PO BID 04/09/23 01/15/24 History Sodium Bicarbonate 325 mg PO BID 04/09/23 01/15/24 History calcitrioL 0.25 mcg PO MOWEFR 04/09/23 01/15/24 History Albuterol Sulfate [Ventolin HFA] 2 puff INHALATION RT-QID PRN 7 04/13/23 01/15/24 Rx Days #1 each Levothyroxine Sodium [Synthroid] 50 mcg PO DAILY 07/13/23 01/15/24 History Metoprolol Succinate (ER) [Toprol 50 mg PO DAILY #30 tab 07/18/23 01/15/24 Rx XL] Cranberry Fruit Extract [Cranberry] 500 mg PO BID 12/31/23 01/15/24 History Empagliflozin [Jardiance] 10 mg PO DAILY 12/31/23 01/15/24 History Gabapentin [Neurontin] 100 mg PO BID 12/31/23 01/15/24 History Omeprazole 20 mg PO DAILY 12/31/23 01/15/24 History Potassium Chloride ER [K-Dur 10] 10 meq PO DAILY 12/31/23 01/15/24 History ALPRAZolam [Xanax] 0.25 mg PO DAILY PRN 01/15/24 01/15/24 History Levofloxacin [Levaquin] 500 mg PO DAILY 01/15/24 01/15/24 History Torsemide [Demadex] 40 mg PO DAILY 01/15/24 01/15/24 History predniSONE See Taper PO DIRECTED 01/15/24 01/15/24 History Allergies Allergy/AdvReac Type Severity Reaction Status Date / Time codeine Allergy Itching Verified 01/15/24 05:57 Physical Exam Vitals: Vital Signs Temp Pulse Pulse Pulse Pulse Resp BP 01/23/24 10:30 61 22 140/63 01/23/24 08:44 60 60 01/23/24 08:13 62 01/23/24 07:58 60 01/23/24 07:42 60 01/23/24 07:10 97.6 F 60 22 138/65 01/23/24 04:41 60 01/23/24 04:31 60 01/23/24 04:00 97.4 F L 60 21 01/23/24 02:00 60 21 01/23/24 00:36 60 01/23/24 00:25 66 01/23/24 00:01 98.1 F 63 21 01/22/24 21:00 60 01/22/24 20:00 63 21 01/22/24 19:57 97.9 F 60 21 01/22/24 16:38 68 01/22/24 16:27 64 01/22/24 16:00 60 20 01/22/24 14:24 63 01/22/24 14:14 61 01/22/24 12:09 64 01/22/24 12:00 97.6 F 62 61 20 BP Pulse Ox 01/23/24 10:30 91 L 01/23/24 08:44 01/23/24 08:13 129/79 89 L 01/23/24 07:58 01/23/24 07:42 01/23/24 07:10 88 L 01/23/24 04:41 01/23/24 04:31 01/23/24 04:00 135/74 94 L 01/23/24 02:00 01/23/24 00:36 01/23/24 00:25 01/23/24 00:01 136/59 91 L 01/22/24 21:00 01/22/24 20:00 01/22/24 19:57 140/63 91 L 01/22/24 16:38 01/22/24 16:27 01/22/24 16:00 145/66 93 L 01/22/24 14:24 01/22/24 14:14 01/22/24 12:09 01/22/24 12:00 112/56 93 L Intake and Output 01/22/24 01/23/24 01/23/24 22:59 06:59 14:59 Intake Total 180 Output Total 1000 300 Balance -1000 -300 180 Intake: Oral 180 Output: Urine 1000 300 Other: Voiding Method Indwelling Catheter Indwelling Catheter Indwelling Catheter # Bowel Movements 2 Weight 69.9 kg patient is awake, lethargic, no acute distress. Examination of the heart S1 and S2 Examination the lungs decreased breath sounds at the bases Abdomen is soft nontender Examination lower extremity shows edema 2+ bilaterally with chronic skin changes Results - Lab Results Most recent lab results ABG pH 7.43 (7.35-7.45) 01/21/24 10:08 ABG pCO2 40 mmHg (35-45) 01/21/24 10:08 ABG pO2 72 mmHg (83-108) L 01/21/24 10:08 ABG HCO3 27 mmol/L (21-25) H 01/21/24 10:08 ABG O2 Saturation 94.2 % (94-97) 01/21/24 10:08 Calcium 9.6 mg/dL (8.4-10.2) 01/23/24 06:01 Magnesium 2.1 mg/dL (1.6-2.3) 01/16/24 07:28 01/23/24 06:01 01/23/24 06:01 Assessment and Plan Assessment: 1. Acute kidney injury, cardiorenal/ATN from IV contrast, nonoliguric. Maintained on IV diuretics for volume overload. UA is completely benign. currently with indwelling Bautista catheter. B UN is disproportionately elevated secondary to steroidsand possible underlying GI bleed. Stool for occult blood was positive but no active bleeding noted. 2. Volume overload maintained on IV Bumex 3. Right lung masses with possible metastases to right and adrenal gland 4. CK D stage III a secondary to nephrosclerosis 5. Diastolic heart failure with preserved left ventricular function and severe pulmonary hypertension. 6. Acute non-ST elevation AR status post cardiac catheterization 7. 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 PTH was 101 in September 2023. Serum calcium at 9.6. Plan: continue with IV Bumex Continue with Bautista catheter Overall prognosis is guarded. Avoid any nephrotoxic agents. Thank you for the consultation. We will continue to follow the patient with you during her hospitalization.
--- NOTE | 2024-01-23 12:33 | P.PN ---
Subjective Progress Note Date: 01/23/24 Principal diagnosis: Acute on chronic hypoxic respiratory failure, multifactorial On 01/21/2024, the patient is being seen in consultation for worsening shortness of breath. The patient is known to have COPD and she has chronic hypoxic respiratory failure maintained on O2 at 2 L/min nasal cannula on outpatient basis. She is also known to have coronary artery disease, sick sinus syndrome/chronic atrial fibrillation and the patient is a permanent biventricular pacemaker in place and the patient has been maintained on anticoagulation with Eliquis. She also has diastolic heart failure with secondary pulmonary hypertension. The most recent echocardiogram on this patient was from 04/10/2023 and the patient was found to have a little LV ejection fraction of 60 to 65%, severe pulm hypertension, PA pressure estimated to be around 74. Moderate MR, calcified mitral valve, severe LA dilatation. In any rate, the patient is coming into the hospital because of worsening shortness of breath. She was admitted to the hospital on 01/15/2024. Since her admission, the patient has been subjected to diuretics and the patient remains on Bumex 1 mg IV twice a day. She was also being treated for COPD exacerbation and she is currently on DuoNeb nebulized treatments [id number] and IV Solu-Medrol. She is also on empiric antibiotic coverage with IV Rocephin. Oxygenation is stable and the patient is currently on 4 L of oxygen by nasal cannula. Hemodynamically stable. Chest x-ray most recent of which was done on 01/20/2024 was consistent still with cardiomegaly and pulmonary vascular congestion and CHF and the patient continues to produce adequate urine output. She has a Bautista catheter in place. Fluid balance remains -700 cc over the past 24 hours. Bone Crusher on the case. Noted her proBNP level at time of admission was 25,500, her most recent blood work show a WBC count of 17.5 with a hemoglobin 7.1 and a platelet count of 73. Her BUN is at 71 with a creatinine of 1.2. Sodium levels at 128. Blood gases done on 36% FiO2 showed a pH of 7.4 with a pCO2 of 40 and pO2 of 72. Patient was seen today on 01/22/2024, patient is doing relatively well, on di uretics, she is also on bronchodilators, and steroids, she was seen yesterday by Dr. Goff on consultation, reviewed his recommendations, and I have recommended no change to his recommendation at this point. Patient has been in the hospital for almost a week, and we were consulted yesterday. Improving, and the plan is to continue diuretics steroids and bronchodilators for now.WBC count is 15.3 hemoglobin is 10.3 sodium is 131 BUN is 81 creatinine 1.25 Patient was seen today on 01/23/2024, basically the patient is about the same. It is marginal at best, and in addition to all of this she had a CT of the chest yesterday which seems to be quite abnormal. Previous CT of the chest was about a year and a half ago, and the findings on the CT of the chest are different with new changes noted in the left lower lobe, suggestive of malignancy/left lower lobe masses with right infrahilar mediastinal adenopathy, I believe her mediastinal adenopathy has been present before and monitored for quite some time with negative PET scan, but the left lower lobe findings are new highly suspicious for bronchogenic carcinoma. Patient is not the most ideal candidate for tissue diagnosis/bronchoscopy hence I will likely address this on outpatient basis by having a PET scan and decide whether the patient could have any other diagnostic procedures or based on the PET scan further recommendations will have to follow. Patient was made aware of the findings of the CT of the chest, and explained to her the importance of having outpatient follow-up although the overall picture is not very bright. WBC count is 18.4 hemoglobin 9.6. Basic metabolic profile is normal BUN is 103 creatinine 1.56, Patient also has positive stool occult blood patient remains on Eliquis, remains on Bumex 1 mg IV push twice daily, remains on Rocephin, bronchodilators, methylprednisolone 60 mg IV push every 6 hours, she is also on Aldactone 25 mg p.o. daily. Objective - Vital Signs Vital signs: Vital Signs Temp 97.5 F L 01/23/24 11:47 Pulse 60 01/23/24 11:47 Resp 20 01/23/24 11:47 BP 144/78 01/23/24 11:47 Pulse Ox 98 01/23/24 11:47 FiO2 Intake & Output 01/22/24 01/23/24 01/23/24 18:59 06:59 18:59 Intake Total 240 180 Output Total 1000 300 Balance -760 -300 180 Weight 69.9 kg Intake: Oral 240 180 Output: Urine 1000 300 Other: Voiding Method Indwelling Catheter Indwelling Catheter Indwelling Catheter # Bowel Movements 2 - Exam General reveals 78-year-old female in no distress, on 5 L nasal cannula with O2 sats of 91% Head: Atraumatic, normocephalic HEENT: PERRLA, EOMI, nonicteric, no neck masses no thyromegaly Lungs: Diminished breath sounds at the bases no crackles rhonchi or wheezes Cardiac: Distant S1-S2, irregular, no S3 gallop, no murmur Abdomen: Soft nontender no megaly no rebound no guarding Extremities: Trace of bipedal edema no cyanosis Neurologic alert oriented x 3 no gross focal deficit Psychiatric: Normal mood affect and no mental status examination Skin: No rash - Labs CBC & Chem 7: 01/23/24 06:01 01/23/24 06:01 Labs: Abnormal Lab Results - Last 24 Hours (Table) 01/22/24 01/22/24 01/23/24 Range/Units 16:22 20:02 00:24 WBC (3.8-10.6) k/uL Hgb (11.4-16.0) gm/dL Hct (34.0-46.0) % MCV (80.0-100.0) fL MCH (25.0-35.0) pg MCHC (31.0-37.0) g/dL RDW (11.5-15.5) % Plt Count (150-450) k/uL Neutrophils # (Manual) (1.3-7.7) k/uL Lymphocytes # (Manual) (1.0-4.8) k/uL Nucleated RBCs (0-0) /100 WBC Sodium (137-145) mmol/L BUN (7-17) mg/dL Creatinine (0.52-1.04) mg/dL Glucose (74-99) mg/dL POC Glucose (mg/dL) 159 H 136 H (70-110) mg/dL Stool Occult Blood Positive H (Negative) 01/23/24 01/23/24 01/23/24 Range/Units 00:39 06:00 06:01 WBC 19.6 H 18.4 H (3.8-10.6) k/uL Hgb 9.9 L 9.6 L (11.4-16.0) gm/dL Hct 32.6 L 32.8 L (34.0-46.0) % MCV 75.2 L 76.9 L (80.0-100.0) fL MCH 22.8 L 22.5 L (25.0-35.0) pg MCHC 30.4 L 29.2 L (31.0-37.0) g/dL RDW 23.8 H 23.6 H (11.5-15.5) % Plt Count 104 L 100 L (150-450) k/uL Neutrophils # (Manual) 17.11 H (1.3-7.7) k/uL Lymphocytes # (Manual) 0.74 L (1.0-4.8) k/uL Nucleated RBCs 8 H (0-0) /100 WBC Sodium (137-145) mmol/L BUN (7-17) mg/dL Creatinine (0.52-1.04) mg/dL Glucose (74-99) mg/dL POC Glucose (mg/dL) 133 H (70-110) mg/dL Stool Occult Blood (Negative) 01/23/24 01/23/24 01/23/24 Range/Units 06:01 11:10 11:35 WBC (3.8-10.6) k/uL Hgb (11.4-16.0) gm/dL Hct (34.0-46.0) % MCV (80.0-100.0) fL MCH (25.0-35.0) pg MCHC (31.0-37.0) g/dL RDW (11.5-15.5) % Plt Count (150-450) k/uL Neutrophils # (Manual) (1.3-7.7) k/uL Lymphocytes # (Manual) (1.0-4.8) k/uL Nucleated RBCs (0-0) /100 WBC Sodium 131 L (137-145) mmol/L BUN 103 H* (7-17) mg/dL Creatinine 1.56 H (0.52-1.04) mg/dL Glucose 116 H (74-99) mg/dL POC Glucose (mg/dL) 222 H 209 H (70-110) mg/dL Stool Occult Blood (Negative) Assessment and Plan Assessment: Impression: Acute on chronic hypoxemic respiratory failure, patient has a combination of COPD and chronic diastolic congestive heart failure. Abnormal CT of the chest with new findings compared to the last CT of the chest findings on the CT of the chest are highly suggestive of bronchogenic carcinoma involving left lower lobe Acute on chronic diastolic heart failure with preserved LV function severe pulmonary hypertension. COPD, currently inactive and stable Nonspecific mediastinal lymphadenopathy without any significant metabolic activity based on the PET scan that was done in November 2021, and she had a CT of the chest in July 12 Chronic hypoxemic respiratory failure, normally maintained on 2 L at bedtime, secondary to above Moderate to severe pulmonary hypertension secondary to above Coronary artery disease, with history of previous PCI/stent, stents are patent based on the cardiac catheterization from 01/16/2024 History of sick sinus syndrome and chronic atrial fibrillation, status post permanent biventricular pacemaker implantation, and chronically anticoagulated on Eliquis Hypothyroidism Obesity, with a BMI 32.2 kg/m Ex-smoker Hyponatremia, diuretic induced, improved Recommendation: Discussed and reviewed with the patient her abnormal CT of the chest findings made aware of the findings and made aware that she is not a surgical candidate she may not even be a good candidate for bronchoscopy and biopsy. Hence the best to do is to monitor for now and arrange for PET scan on outpatient basis Continue oxygen and titrate accordingly Continue bronchodilators and steroids Continue Bumex and Aldactone Continue farXIGA continue to monitor electrolytes and renal profile on a daily basis Continue Eliquis Overall prognosis is extremely poor and guarded CODE STATUS is DNR Will continue to follow Time with Patient: Less than 30
[2024-01-23 12:40] VITALS: BMI 31.1
[2024-01-23 16:28] VITALS: BP 135/74; RESP 24; TEMP 99
[2024-01-23] MEDS ORDERED: SYMBICORT 160-4.5 MCG INHALER INHALATION SCH (20:00)
--- NOTE | 2024-01-24 04:02 | PN ---
PROGRESS NOTE DATE OF SERVICE: 01/23/2024 SUBJECTIVE: This is a 78-year-old woman, who was admitted with shortness of breath possibly, history of CHF and COPD, has taken a turn for the worse today. The patient became unresponsive and developed acute hypoxic respiratory failure. CT scan showed right lower lobe mass with possible mediastinal adenopathy. The family is opting for no code at this time. The patient is. The patient also had lower GI bleed. PAST MEDICAL HISTORY: Reviewed. REVIEW OF SYSTEMS: Could not be taken. CURRENT MEDICATIONS: Reviewed. PHYSICAL EXAMINATION: VITAL SIGNS: Pulse is 60, blood pressure 140/70, respirations 20. HEENT: Conjunctivae normal. CARDIOVASCULAR: S1, S2. RESPIRATIONS: Breath sounds diminished at the bases. A few scattered rhonchi and crackles. ABDOMEN: Soft. LEGS: No edema. No swelling. LABORATORY DATA: Reviewed. ASSESSMENT: 1. Shortness of breath, possible congestive heart failure acute exacerbation as well as chronic obstructive pulmonary disease exacerbation with acute hypoxic respiratory failure. 2. Change in mental status, metabolic encephalopathy. 3. Possible acute lower gastrointestinal bleeding. 4. Possible right lower lobe lung mass malignancy with mediastinal adenopathy. 5. History of multiple lung nodules. 6. Elevated troponin, possibly type [address]-segment elevation myocardial infarction. 7. Hyponatremia. 8. Multiple complex medical issues. RECOMMENDATIONS: Recommend to continue current management and continue symptomatic treatment. Otherwise, at this time, I would recommend to continue the no-code orders and we will await for family to discuss the possibility of comfort measures. Otherwise, overall prognosis remains extremely guarded because of above-mentioned detailed multiple complex medical issues. We will closely follow with Pulmonary. MMODL / IJN: [id number] / NING
--- NOTE | 2024-01-24 15:31 | P.DS ---
Providers Date of admission: 01/16/24 10:49 Expected date of discharge: 01/23/24 Attending physician: May Tanner Consults: 01/15/24 07:48 Consult Physician Urgent Consulting Provider: Edu Quintero Consult Reason/Comments: Chest pain, elevated troponin, CHF exacerbation Do you want consulting provider notified?: Yes 01/20/24 16:12 Consult Physician Routine Consulting Provider: Lj Goff Consult Reason/Comments: sm left pleural effusion Do you want consulting provider notified?: Yes 01/23/24 06:59 Consult Physician Urgent Consulting Provider: Leann Woodruff Consult Reason/Comments: Elevated Critical BUN Do you want consulting provider notified?: Yes Primary care physician: Nirali Elizabeth Hospital Course: Final diagnosis Shortness of breath, CHF acute exacerbation as well as COPD exacerbation with acute hypoxic respiratory failure Change in mental status, metabolic encephalopathy secondary to above Possible lower acute GI bleeding Possible right lower lobe lung mass malignancy with mediastinal and lymphadenopathy History of multiple lung nodules Elevated troponin, likely type II non-STEMI secondary to CHF and COPD exacerbation Hyponatremia History of atrial fibrillation History of coronary artery disease History of osteoarthritis History of degenerative disc disease with osteoporosis GI prophylaxis DVT prophylaxis No code Discharge disposition Patient is being transferred in a stable, guarded condition with guarded prognosis to [facility] services. Total time taken is greater than 35 minutes. Hospital course This is a 78-year-old female who was recently admitted after being recently discharged previously for CHF and COPD exacerbation. Patient also with acute metabolic encephalopathy multifactorial with multiple severe comorbidities ongoing. Patient showing clinical decline with increased unresponsiveness, difficulty in breathing requiring more oxygen. CODE STATUS was addressed with family making her no code and informational hospice was consulted. Family met with hospice and agreeable and does meet inpatient criteria will be transitioning to comfort measures only with a morphine drip. Please refer to other consultation notes for further HPI. Currently no reports of chest pain, continued ongoing worsening shortness of breath, or palpitations. Patient is afebrile. reports of nausea, no vomiting and patient is not eating. Overall extremely poor and guarded prognosis. Physical exam: Gen: This is a 78-year-old female who is awake, alert and oriented x 1-2, extremely lethargic, tachypneic, restless and anxious on exam, well-developed, elderly appearing, obese HEENT: Head is atraumatic, normocephalic. Pupils equal, round. Sclerae is anicteric. NECK: Supple. No JVD. No lymphadenopathy. No thyromegaly. LUNGS: Diminished breath sounds bilaterally with crackles noted along with bronchial congestion and coarse rhonchi. No intercostal retractions. HEART: S1, S2 are muffled ABDOMEN: Soft. Obese. Bowel sounds are present. No masses. No tenderness. EXTREMITIES: No pedal edema. No calf tenderness. NEUROLOGICAL: Patient is awake, alert and oriented x1-2. Extremely lethargic diffusely weak Please refer to medication reconciliation sheet for a list of medications. The impression and plan of care has been dictated by Gianna Mcgowan, Nurse Practitioner as directed. Dr. Ciro MD I have performed a history and examination and MDM of this patient, discussed the same with the dictator, and agree with the dictator's assessment and plan as written ,documented as a scribe. Based on total visit time, I have performed more than 50% of the visit. Patient Condition at Discharge: Poor Plan - Discharge Summary New Discharge Prescriptions: No Action Vit C/E/Zn/Coppr/Lutein/Zeaxan [Preservision Areds 2 Softgel] 1 cap PO BID Atorvastatin [Lipitor] 40 mg PO HS #30 tab allopurinoL [Zyloprim] 100 mg PO BID Fluticasone/Umeclidin/Vilanter [Trelegy Ellipta 100-62.5-25] 1 puff INHALATION RT-DAILY Aspirin [Nolan Aspirin EC] 81 mg PO DAILY Cholecalciferol [Vitamin D3 (25 Mcg = 1000 Iu)] 25 mcg PO DAILY Ipratropium-Albuterol Nebulize [Duoneb 0.5 mg-3 mg/3 ml Soln] 3 ml INHALATION RT-QID Apixaban [Eliquis] 5 mg PO BID Metoprolol Succinate (ER) [Toprol XL] 50 mg PO DAILY #30 tab Empagliflozin [Jardiance] 10 mg PO DAILY Torsemide [Demadex] 40 mg PO DAILY Levofloxacin [Levaquin] 500 mg PO DAILY ALPRAZolam [Xanax] 0.25 mg PO DAILY PRN PRN Reason: Anxiety Sodium Bicarbonate 325 mg PO BID calcitrioL 0.25 mcg PO MOWEFR Albuterol Sulfate [Ventolin HFA] 2 puff INHALATION RT-QID PRN 7 Days #1 each PRN Reason: Shortness Of Breath Levothyroxine Sodium [Synthroid] 50 mcg PO DAILY Potassium Chloride ER [K-Dur 10] 10 meq PO DAILY Omeprazole 20 mg PO DAILY Gabapentin [Neurontin] 100 mg PO BID Cranberry Fruit Extract [Cranberry] 500 mg PO BID predniSONE See Taper PO DIRECTED Discharge Medication List Vit C/E/Zn/Coppr/Lutein/Zeaxan [Preservision Areds 2 Softgel] 1 cap PO BID 03/02/15 [History] Atorvastatin [Lipitor] 40 mg PO HS #30 tab 03/04/15 [Rx] allopurinoL [Zyloprim] 100 mg PO BID 10/22/18 [History] Fluticasone/Umeclidin/Vilanter [Trelegy Ellipta 100-62.5-25] 1 puff INHALATION RT-DAILY 07/01/19 [History] Aspirin [Nolan Aspirin EC] 81 mg PO DAILY 08/09/19 [History] Cholecalciferol [Vitamin D3 (25 Mcg = 1000 Iu)] 25 mcg PO DAILY 05/23/20 [History] Ipratropium-Albuterol Nebulize [Duoneb 0.5 mg-3 mg/3 ml Soln] 3 ml INHALATION RT-QID 10/28/21 [History] Apixaban [Eliquis] 5 mg PO BID 04/09/23 [History] Sodium Bicarbonate 325 mg PO BID 04/09/23 [History] calcitrioL 0.25 mcg PO MOWEFR 04/09/23 [History] Albuterol Sulfate [Ventolin HFA] 2 puff INHALATION RT-QID PRN 7 Days #1 each 04/13/23 [Rx] Levothyroxine Sodium [Synthroid] 50 mcg PO DAILY 07/13/23 [History] Metoprolol Succinate (ER) [Toprol XL] 50 mg PO DAILY #30 tab 07/18/23 [Rx] Cranberry Fruit Extract [Cranberry] 500 mg PO BID 12/31/23 [History] Empagliflozin [Jardiance] 10 mg PO DAILY 12/31/23 [History] Gabapentin [Neurontin] 100 mg PO BID 12/31/23 [History] Omeprazole 20 mg PO DAILY 12/31/23 [History] Potassium Chloride ER [K-Dur 10] 10 meq PO DAILY 12/31/23 [History] ALPRAZolam [Xanax] 0.25 mg PO DAILY PRN 01/15/24 [History] Levofloxacin [Levaquin] 500 mg PO DAILY 01/15/24 [History] Torsemide [Demadex] 40 mg PO DAILY 01/15/24 [History] predniSONE See Taper PO DIRECTED 01/15/24 [History] Follow up Appointment(s)/Referral(s): Nirali Elizabeth MD [Primary Care Provider] - 1-2 days [facility] Visiting Nurse, [NON-STAFF] - Discharge Disposition: HOME WITH HOSPICE
== END 2024-01-23 16:44 | disposition hospice, inpatient (51) | DRG 280 ==
LOC: EC 05:51 → 3SCARD 07:44 → OBSVTOIN 01-16 10:49 → 3SCARD 01-16 11:22
PROVIDERS: ADMIT Hospitalist; ATTEND Hospitalist
PROC: B2111ZZ Fluoroscopy of Multiple Coronary Arteries using Low Osmolar Contrast (ICD-10-PCS; 2024-01-18)
PROC: 4A023N7 Measurement of Cardiac Sampling and Pressure, Left Heart, Percutaneous Approach (ICD-10-PCS; principal; 2024-01-18 08:45)
DX: I13.0 Hypertensive heart and chronic kidney disease with heart failure and stage 1 through stage 4 chronic kidney disease, or unspecified chronic kidney disease (principal); G93.41 Metabolic encephalopathy; I21.A1 Myocardial infarction type 2; I50.33 Acute on chronic diastolic (congestive) heart failure; J96.22 Acute and chronic respiratory failure with hypercapnia; N17.0 Acute kidney failure with tubular necrosis; J96.21 Acute and chronic respiratory failure with hypoxia; E87.1 Hypo-osmolality and hyponatremia; I48.21 Permanent atrial fibrillation; J44.1 Chronic obstructive pulmonary disease with (acute) exacerbation; Z51.5 Encounter for palliative care; Z66 Do not resuscitate; E03.9 Hypothyroidism, unspecified; E11.22 Type 2 diabetes mellitus with diabetic chronic kidney disease; E66.9 Obesity, unspecified; K21.9 Gastro-esophageal reflux disease without esophagitis; M81.0 Age-related osteoporosis without current pathological fracture; N18.32 Chronic kidney disease, stage 3b; I49.5 Sick sinus syndrome; E78.5 Hyperlipidemia, unspecified; D50.9 Iron deficiency anemia, unspecified; D69.6 Thrombocytopenia, unspecified; E86.1 Hypovolemia; F41.9 Anxiety disorder, unspecified; I25.10 Atherosclerotic heart disease of native coronary artery without angina pectoris; M89.8X9 Other specified disorders of bone, unspecified site; I27.29 Other secondary pulmonary hypertension; R19.5 Other fecal abnormalities; I34.0 Nonrheumatic mitral (valve) insufficiency; R59.0 Localized enlarged lymph nodes; T50.2X5A Adverse effect of carbonic-anhydrase inhibitors, benzothiadiazides and other diuretics, initial encounter; T50.8X5A Adverse effect of diagnostic agents, initial encounter; Z68.32 Body mass index [BMI] 32.0-32.9, adult; Z79.01 Long term (current) use of anticoagulants; Z79.82 Long term (current) use of aspirin; Z79.84 Long term (current) use of oral hypoglycemic drugs; Z79.890 Hormone replacement therapy; Z79.899 Other long term (current) drug therapy; Z95.0 Presence of cardiac pacemaker; Z95.5 Presence of coronary angioplasty implant and graft; Z99.81 Dependence on supplemental oxygen; I25.2 Old myocardial infarction
CPT/HCPCS: 36415; 36600; 71046; 71250; 80048; 80053; 81003; 82272; 82805; 83735; 83880; 84145; 84484; 85025; 85027; 85610; 85730; 87636; 93005; 93458; 94640; 94760; 96365; 96366; 96375; 96376; 99285

== ENCOUNTER 2024-01-23 16:30 | Inpatient (IN) | payer MEDICAID ==
[2024-01-23] MEDS ORDERED: ONDANSETRON 4 MG/2 ML VIAL IVP PRN (16:32)
[2024-01-23] MEDS ORDERED: MORPHINE SULFATE 4 MG/ML SYRINGE IV PRN (16:32)
[2024-01-23] MEDS ORDERED: GLYCOPYRROLATE 0.2 MG/ML 2 ML VIAL IVP PRN (16:32)
[2024-01-23] MEDS ORDERED: ATROPINE OPHTH SOLN 1% 5ML BTL SUBLINGUAL PRN (16:32)
[2024-01-23] MEDS ORDERED: ACETAMINOPHEN SUPPOSITORY 650 MG SUPP RECTAL PRN (16:32)
[2024-01-23] MEDS ORDERED: DRY MOUTH SPRAY 44.3 SPRAY/44.3 ML SPRAY MUCOUS MEM PRN (16:32)
[2024-01-23] MEDS: MORPHINE SULFATE (100 MG/2 ML) 100 MG in SODIUM CHLORIDE 0.9% 100 ML IV SCH (17:19)
[2024-01-23] MEDS: LORazepam 2 MG/ML INJ IV PRN (17:22)
[2024-01-23] MEDS: SCOPOLAMINE 1 MG/72 HR PATCH TRANSDERM SCH (17:23)
[2024-01-23 18:43] VITALS: RESP 18
--- NOTE | 2024-01-24 15:36 | P.HPIM ---
History of Present Illness H&P Date: 01/23/24 78-year-old female came in with complaints of chest pain on the left side of the chest radiating to the entire precordium on the left side. Patient does have history of COPD and also has chronic diastolic dysfunction patient was complaining of some orthopnea chest x-ray is consistent with pulmonary edema although patient does not have any significant pedal edema. Patient usually takes 40 mg of torsemide at home patient had a recent hospitalization at the time she was treated for COPD exacerbation, hyponatremia patient was given Samsca presents with serum sodium is 133 patient has serum creatinine of 1.27 does have chronic kidney disease with baseline creatinine around 1.3-1.5. This may be secondary to cardiorenal syndrome patient also has severe pulmonary hypertension. Patient had history of coronary disease with stent in 2011 troponins are slightly elevated to 0.068 and 0.084. Patient's BNP is 25,000 and her previous BNP was 11,200. Patient is presently on 4 L of oxygen patient does not use oxygen at home unsure how many liters she uses at home 01/16/2024 To be seen in follow-up she is currently in the ER pending a bed on the medical floor. No further reports of chest pain at this time and she does report significant improvement in her shortness of breath. Pending repeat echocardiogram. Patient continues on IV Lasix 40 mg every 12 as well as IV heparin. 01/17/2024 Patient is evaluated today on the cardiac unit resting in bed. Continues to report intermittent episodes of chest tightness which the patient feels similar to the time that she had to get a cardiac stent placed most recently. Patient states that she discussed with her family going for a cardiac catheterization and would like to pursue this at this time. She continues on IV heparin. Echocardiogram pending. She continues on diuretic therapy has been transition to oral Bumex. 01/18/2024 Patient evaluated today in follow up currently on bedrest post cardiac catheterization. Cath reveals patent stent within the right coronary artery and mild nonobstructive CAD. At this time patient is not having any chest discomfort. Patient did have RSV back in June of this year and since has had issues with shortness of breath and chest tightness. Procalcitonin level was elevated at 0.67, and white blood cell count remains elevated at at 17. 01/23/2024 Patient continues to show clinical decline having increasing respiratory demands requiring nonrebreather minimally responsive and extremely hypoxic in discussion was had with family regarding CODE STATUS and patient was made no code. Patient and family later met with [facility] agreeable to hospice and comfort care measures initiating a morphine drip. Patient will be transition to [facility] services with comfort care only. Please refer to previous documentation for further HPI. Review of Systems Constitutional: Denied any fatigue denied any fever. Cardio vascular: denied any chest pain, palpitations Gastrointestinal: denied any nausea, vomiting, diarrhea Pulmonary: Reports significant shortness of breath maintained on 15 L non rebreather, extremely lethargic and minimally responsive Neurologic denied any new focal deficits All inpatient medications were reviewed and appropriate changes in these medications as dictated in the interval history and assessment and plan. PHYSICAL EXAMINATION: GENERAL: The patient is alert and oriented x1-2, anxious, restless, hypoxic maintained on 15 L nonrebreather. Well developed, elderly appearing, ill- appearing, obese HEENT: Pupils are round and equally reacting to light. EOMI. No scleral icterus. No conjunctival pallor. Normocephalic, atraumatic. No pharyngeal erythema. No thyromegaly. CARDIOVASCULAR: S1 and S2 muffled PULMONARY: Extremely diminished air entry to bilateral lung moreno with significant crackles and bronchial congestion and coarse rhonchi noted ABDOMEN: Soft, nontender, nondistended, normoactive bowel sounds. No palpable organomegaly. MUSCULOSKELETAL: No joint swelling or deformity. EXTREMITIES: No cyanosis, clubbing, or pedal edema. NEUROLOGICAL: Gross neurological examination did not reveal any focal deficits. Diffusely weak SKIN: No rashes. Assessment and plan _Acute on chronic hypoxic respiratory failure: Secondary to CHF exacerbation as well as COPD exacerbation -Elevated troponins possibility of NSTEMI most probably type II from CHF; cath reveals patent RCA stent and mild nonobstructive CAD. -Hyponatremia hypovolemic on normal saline and repeat blood work in the AM. -chronic kidney disease stage II-IIIb -Chronic hypercapnic respiratory failure secondary to COPD -Congestive failure chronic diastolic function with acute exacerbation -Severe pulmonary hypertension and cor pulmonale -History of multiple lung nodules -Possible right lower lobe lung mass, malignancy not excluded with mediastinal adenopathy -Hyperlipidemia -Hypothyroidism -DVT prophylaxis: Resumed on eliquis. No code Plan: Patient and family have met with [facility] and meets criteria for inpatient. Patient will be transition to [facility] hospice services initiated on a morphine drip. We will continue to follow with [facility] during hospitalization. The impression and plan of care has been dictated by Gianna Mcgowan Nurse Pract itioner as directed. Dr. Ciro MD I have performed a history and examination and MDM of this patient, discussed the same with the dictator, and agree with the dictator's assessment and plan as written ,documented as a scribe. Based on total visit time, I have performed more than 50% of the visit. Past Medical History Past Medical History: Atrial Fibrillation, Coronary Artery Disease (CAD), Cancer, COPD, Eye Disorder, Hearing Disorder / Deafness, Myocardial Infarction (AR), Osteoarthritis (OA), Pneumonia, Thyroid Disorder Additional Past Medical History / Comment(s): Gout, hiatal hernia, Macular Degeneration, Skin Cancer, degenerative disc disease, osteoporosis. UTI 07/01/19. Last Myocardial Infarction Date:: 2011 History of Any Multi-Drug Resistant Organisms: None Reported Past Surgical History: Cardiac Ablation, Cholecystectomy, Heart Catheterization With Stent, Hysterectomy, Orthopedic Surgery, Pacemaker, Tonsillectomy Additional Past Surgical History / Comment(s): Right shoulder surgery, left wrist surgery. Thyroid Nodule removed, sylvia Cataracts, LOOP RECORDER-11/23/17; CHRIO ABLATION 03/08/18 WITH CARDIOVERSION Past Anesthesia/Blood Transfusion Reactions: No Reported Reaction Date of Last Stent Placement:: 2011 Type of Cardiac Device: Permanent Pacemaker Device Placement Date:: 07/2019 Past Psychological History: No Psychological Hx Reported Smoking Status: Former smoker Past Alcohol Use History: None Reported Additional Past Alcohol Use History / Comment(s): started smoking at age 15(1961) and quit 2006, smoked 2ppd Past Drug Use History: None Reported - Past Family History Mother Family Medical History: Cancer, Congestive Heart Failure (CHF), Myocardial Infarction (AR), Pneumonia, Pulmonary Embolus Additional Family Medical History / Comment(s): breast CA Father Family Medical History: CVA/TIA, Myocardial Infarction (AR) Medications and Allergies Home Medications Medication Instructions Recorded Confirmed Type Vit C/E/Zn/Coppr/Lutein/Zeaxan 1 cap PO BID 03/02/15 01/23/24 History [Preservision Areds 2 Softgel] Atorvastatin [Lipitor] 40 mg PO HS #30 tab 03/04/15 01/23/24 Rx allopurinoL [Zyloprim] 100 mg PO BID 10/22/18 01/23/24 History Fluticasone/Umeclidin/Vilanter 1 puff INHALATION RT-DAILY 07/01/19 01/23/24 History [[place]winleroseline Ellipta 100-62.5-25] Aspirin [[place] Aspirin EC] 81 mg PO DAILY 08/09/19 01/23/24 History Cholecalciferol [Vitamin D3 (25 25 mcg PO DAILY 05/23/20 01/23/24 History Mcg = 1000 Iu)] Ipratropium-Albuterol Nebulize 3 ml INHALATION RT-QID 10/28/21 01/23/24 History [Duoneb 0.5 mg-3 mg/3 ml Soln] Apixaban [Eliquis] 5 mg PO BID 04/09/23 01/23/24 History Sodium Bicarbonate 325 mg PO BID 04/09/23 01/23/24 History calcitrioL 0.25 mcg PO MOWEFR 04/09/23 01/23/24 History Albuterol Sulfate [Ventolin HFA] 2 puff INHALATION RT-QID PRN 7 04/13/23 01/23/24 Rx Days #1 each Levothyroxine Sodium [Synthroid] 50 mcg PO DAILY 07/13/23 01/23/24 History Metoprolol Succinate (ER) [Toprol 50 mg PO DAILY #30 tab 07/18/23 01/23/24 Rx XL] Cranberry Fruit Extract [Cranberry] 500 mg PO BID 12/31/23 01/23/24 History Empagliflozin [Jardiance] 10 mg PO DAILY 12/31/23 01/23/24 History Gabapentin [Neurontin] 100 mg PO BID 12/31/23 01/23/24 History Omeprazole 20 mg PO DAILY 12/31/23 01/23/24 History Potassium Chloride ER [K-Dur 10] 10 meq PO DAILY 12/31/23 01/23/24 History ALPRAZolam [Xanax] 0.25 mg PO DAILY PRN 01/15/24 01/23/24 History Levofloxacin [Levaquin] 500 mg PO DAILY 01/15/24 01/23/24 History Torsemide [Demadex] 40 mg PO DAILY 01/15/24 01/23/24 History predniSONE See Taper PO DIRECTED 01/15/24 01/23/24 History Allergies Allergy/AdvReac Type Severity Reaction Status Date / Time codeine Allergy Itching Verified 01/23/24 20:08 Physical Exam Vitals: Vital Signs Resp 01/23/24 18:43 18
--- NOTE | 2024-01-24 15:40 | P.DS ---
Providers Date of admission: 01/23/24 16:45 Expected date of discharge: 01/23/24 Attending physician: May Tanner Primary care physician: Nirali Elizabeth Hospital Course: Preliminary cause of Congestive heart failure acute on chronic exacerbation along with COPD exacerbation Final diagnosis _Acute on chronic hypoxic respiratory failure: Secondary to CHF exacerbation as well as COPD exacerbation -Elevated troponins possibility of NSTEMI most probably type II from CHF; cath reveals patent RCA stent and mild nonobstructive CAD. -Hyponatremia hypovolemic -chronic kidney disease stage II-IIIb -Chronic hypercapnic respiratory failure secondary to COPD -Congestive failure chronic diastolic function with acute exacerbation -Severe pulmonary hypertension and cor pulmonale -History of multiple lung nodules -Possible right lower lobe lung mass, malignancy not excluded with mediastinal adenopathy -Hyperlipidemia -Hypothyroidism -DVT prophylaxis: Resumed on eliquis. No code Discharge disposition. Patient has . According to nursing documentation, time of was 1939 on 01/23/2024. Total time taken greater than 35 minutes Hospital course This is a 78-year-old female who was recently admitted with increasing shortness of breath with acute on chronic hypoxic respiratory failure secondary to COPD as well as congestive heart failure. Patient was recently hospitalized and discharged for COPD exacerbation as well as CHF and returned here with increasing shortness of breath worsening respiratory status and overall clinical decline. Patient with significant weakness and has not been eating also with concerns of possible GI bleed. Patient with significant comorbidities continuing to decline discussed further with family regarding CODE STATUS and patient was made no code. Patient did meet with family and [facility] hospice and have been agreeable to [facility] hospice services. Patient meets criteria for GIP services and morphine drip was initiated. Patient has and according to nursing documentation, time of was 1939 on 01/23/2024. Please refer to other previous notes and consult notes for further HPI. The impression and plan of care has been dictated by Gianna Mcgowan, Nurse Practitioner as directed. Dr. Ciro MD I have performed a history and examination and MDM of this patient, discussed the same with the dictator, and agree with the dictator's assessment and plan as written ,documented as a scribe. Based on total visit time, I have performed more than 50% of the visit. Patient Condition at Discharge: Poor Plan - Discharge Summary New Discharge Prescriptions: No Action Vit C/E/Zn/Coppr/Lutein/Zeaxan [Preservision Areds 2 Softgel] 1 cap PO BID Atorvastatin [Lipitor] 40 mg PO HS #30 tab allopurinoL [Zyloprim] 100 mg PO BID Fluticasone/Umeclidin/Vilanter [Trelegy Ellipta 100-62.5-25] 1 puff INHALATION RT-DAILY Aspirin [[place] Aspirin EC] 81 mg PO DAILY Cholecalciferol [Vitamin D3 (25 Mcg = 1000 Iu)] 25 mcg PO DAILY Ipratropium-Albuterol Nebulize [Duoneb 0.5 mg-3 mg/3 ml Soln] 3 ml INHALATION RT-QID Apixaban [Eliquis] 5 mg PO BID Metoprolol Succinate (ER) [Toprol XL] 50 mg PO DAILY #30 tab Empagliflozin [Jardiance] 10 mg PO DAILY Torsemide [Demadex] 40 mg PO DAILY Levofloxacin [Levaquin] 500 mg PO DAILY ALPRAZolam [Xanax] 0.25 mg PO DAILY PRN PRN Reason: Anxiety Sodium Bicarbonate 325 mg PO BID calcitrioL 0.25 mcg PO MOWEFR Albuterol Sulfate [Ventolin HFA] 2 puff INHALATION RT-QID PRN 7 Days #1 each PRN Reason: Shortness Of Breath Levothyroxine Sodium [Synthroid] 50 mcg PO DAILY Potassium Chloride ER [K-Dur 10] 10 meq PO DAILY Omeprazole 20 mg PO DAILY Gabapentin [Neurontin] 100 mg PO BID Cranberry Fruit Extract [Cranberry] 500 mg PO BID predniSONE See Taper PO DIRECTED Discharge Medication List Vit C/E/Zn/Coppr/Lutein/Zeaxan [Preservision Areds 2 Softgel] 1 cap PO BID 03/02/15 [History] Atorvastatin [Lipitor] 40 mg PO HS #30 tab 03/04/15 [Rx] allopurinoL [Zyloprim] 100 mg PO BID 10/22/18 [History] Fluticasone/Umeclidin/Vilanter [Trelegy Ellipta 100-62.5-25] 1 puff INHALATION RT-DAILY 07/01/19 [History] Aspirin [[place] Aspirin EC] 81 mg PO DAILY 08/09/19 [History] Cholecalciferol [Vitamin D3 (25 Mcg = 1000 Iu)] 25 mcg PO DAILY 05/23/20 [History] Ipratropium-Albuterol Nebulize [Duoneb 0.5 mg-3 mg/3 ml Soln] 3 ml INHALATION RT-QID 10/28/21 [History] Apixaban [Eliquis] 5 mg PO BID 04/09/23 [History] Sodium Bicarbonate 325 mg PO BID 04/09/23 [History] calcitrioL 0.25 mcg PO MOWEFR 04/09/23 [History] Albuterol Sulfate [Ventolin HFA] 2 puff INHALATION RT-QID PRN 7 Days #1 each 04/13/23 [Rx] Levothyroxine Sodium [Synthroid] 50 mcg PO DAILY 07/13/23 [History] Metoprolol Succinate (ER) [Toprol XL] 50 mg PO DAILY #30 tab 07/18/23 [Rx] Cranberry Fruit Extract [Cranberry] 500 mg PO BID 12/31/23 [History] Empagliflozin [Jardiance] 10 mg PO DAILY 12/31/23 [History] Gabapentin [Neurontin] 100 mg PO BID 12/31/23 [History] Omeprazole 20 mg PO DAILY 12/31/23 [History] Potassium Chloride ER [K-Dur 10] 10 meq PO DAILY 12/31/23 [History] ALPRAZolam [Xanax] 0.25 mg PO DAILY PRN 01/15/24 [History] Levofloxacin [Levaquin] 500 mg PO DAILY 01/15/24 [History] Torsemide [Demadex] 40 mg PO DAILY 01/15/24 [History] predniSONE See Taper PO DIRECTED 01/15/24 [History] Discharge Disposition: - Preliminary Cause of Preliminary Cause of : COPD exacerbation, CHF exacerbation
== END 2024-01-23 21:27 | disposition expired | DRG 951 ==
LOC: 3SCARD 16:45
PROVIDERS: ADMIT Hospitalist; ATTEND Hospitalist
DX: Z51.5 Encounter for palliative care (principal); J96.22 Acute and chronic respiratory failure with hypercapnia; J96.21 Acute and chronic respiratory failure with hypoxia; I50.33 Acute on chronic diastolic (congestive) heart failure; I21.A1 Myocardial infarction type 2; J44.1 Chronic obstructive pulmonary disease with (acute) exacerbation; E87.1 Hypo-osmolality and hyponatremia; I27.81 Cor pulmonale (chronic); I27.29 Other secondary pulmonary hypertension; Z66 Do not resuscitate; I48.91 Unspecified atrial fibrillation; E03.9 Hypothyroidism, unspecified; E86.1 Hypovolemia; I25.10 Atherosclerotic heart disease of native coronary artery without angina pectoris; R91.8 Other nonspecific abnormal finding of lung field; E78.5 Hyperlipidemia, unspecified; N18.2 Chronic kidney disease, stage 2 (mild); H91.90 Unspecified hearing loss, unspecified ear; I25.2 Old myocardial infarction; Z85.828 Personal history of other malignant neoplasm of skin; Z95.818 Presence of other cardiac implants and grafts; Z87.891 Personal history of nicotine dependence; Z79.899 Other long term (current) drug therapy; Z79.82 Long term (current) use of aspirin; Z79.01 Long term (current) use of anticoagulants; Z79.890 Hormone replacement therapy; Z79.84 Long term (current) use of oral hypoglycemic drugs; Z95.5 Presence of coronary angioplasty implant and graft